=== PATIENT | male | born 1965 | race Caucasian/White ===

== ENCOUNTER 2019-10-25 13:31 | Outpatient (CLI) | payer OTHER, SELFPAY ==
[2019-10-25 13:41] LABS: Basophils Percent Auto 1.1 % (0.0-1.0); Eosinophils Absolute Auto 0.29 K/mm3 (0.02-0.50); Eosinophils Percent Auto 3.1 % (1.0-6.0); Hematocrit 34.9 % (40.0-54.0); Hemoglobin 11.1 g/dL (14.0-18.0); Immature Granulocyte Absolute 0.03 K/mm3 (0.00-0.00); Immature Granulocyte Percent A 0.3 % (0.0-0.0); Lymphocytes Absolute Auto 3.03 K/mm3 (1.10-4.50); Lymphocytes Percent Auto 32.3 % (18.0-42.0); Mean Corpuscular HGB Conc 31.8 g/dL (32.0-36.0); Mean Corpuscular Hemoglobin 27.3 pg (27.0-31.0); Mean Corpuscular Volume 85.7 fL (78.0-102.0); Mean Platelet Volume 8.6 fl (8.7-11.0); Monocytes Absolute Auto 0.77 K/mm3 (0.10-0.90); Monocytes Percent Auto 8.2 % (2.0-11.0); Neutrophils Absolute Auto 5.2 K/mm3 (1.7-7.2); Platelet Count Result 179 K/mm3 (150-420); Red Blood Count 4.07 M/mm3 (4.70-6.10); Red Cell Distribution Width 14.1 % (11.6-14.4); White Blood Count 9.4 K/mm3 (4.8-10.8)
[2019-10-25 13:51] LABS: Hemoglobin A1C 12.7 % (<5.7)
[2019-10-25 14:23] LABS: Alanine Aminotransferase 20 U/L (16-63); Albumin Level 4.1 g/dL (3.4-5.0); Alkaline Phosphatase 95 U/L (46-116); Anion Gap 14.8 mmol/L (7-16); Aspartate Amino Transferase 14 U/L (15-37); Bilirubin,Total 0.3 mg/dL (0.00-1.00); Blood Urea Nitrogen 7 mg/dL (7-18); Carbon Dioxide 29 mmol/L (21-32); Chloride 99 mmol/L (98-108); Estimated Glomerular Filt Rate > 60; Potassium 3.8 mmol/L (3.5-5.1); Sodium 139 mmol/L (136-145); Total Protein 7.2 g/dL (6.4-8.2)
[2019-10-25 14:26] LABS: Glucose 517 mg/dL (70-99); Osmolality Calculated 309 mOsm/kg (285-295)
== END 2019-10-25 13:32 | disposition home or self-care (01) ==
LOC: CHSLAB 13:32
PROVIDERS: PCP Internal Medicine; Visit Provider Internal Medicine
DX: E11.9 Type 2 diabetes mellitus without complications (principal)
CPT/HCPCS: 36415; 80053; 83036; 85025

== ENCOUNTER 2020-02-26 17:13 | Outpatient (CLI) | payer OTHER, SELFPAY ==
[2020-02-26 17:33] LABS: Basophils Percent Auto 1.1 % (0.0-1.0); Eosinophils Absolute Auto 0.17 K/mm3 (0.02-0.50); Eosinophils Percent Auto 1.9 % (1.0-6.0); Hematocrit 42.5 % (40.0-54.0); Hemoglobin 13.9 g/dL (14.0-18.0); Immature Granulocyte Absolute 0.03 K/mm3 (0.00-0.00); Immature Granulocyte Percent A 0.3 % (0.0-0.0); Lymphocytes Absolute Auto 2.99 K/mm3 (1.10-4.50); Lymphocytes Percent Auto 33.3 % (18.0-42.0); Mean Corpuscular HGB Conc 32.7 g/dL (32.0-36.0); Mean Corpuscular Hemoglobin 29.3 pg (27.0-31.0); Mean Corpuscular Volume 89.7 fL (78.0-102.0); Mean Platelet Volume 9.4 fl (8.7-11.0); Monocytes Absolute Auto 0.37 K/mm3 (0.10-0.90); Monocytes Percent Auto 4.1 % (2.0-11.0); Neutrophils Absolute Auto 5.3 K/mm3 (1.7-7.2); Neutrophils Percent Auto 59.3 % (50.0-70.0); Platelet Count Result 230 K/mm3 (150-420); Red Blood Count 4.74 M/mm3 (4.70-6.10); Red Cell Distribution Width 12.8 % (11.6-14.4)
[2020-02-26 18:20] LABS: Alanine Aminotransferase 24 U/L (16-63); Alkaline Phosphatase 166 U/L (46-116); Anion Gap 13.5 mmol/L (7-16); Aspartate Amino Transferase 22 U/L (15-37); Bilirubin,Total 0.6 mg/dL (0.00-1.00); Blood Urea Nitrogen 7 mg/dL (7-18); Calcium 8.9 mg/dL (8.5-10.1); Carbon Dioxide 30 mmol/L (21-32); Chloride 87 mmol/L (98-108); Cholesterol 275 mg/dL (0-200); Estimated Glomerular Filt Rate > 60; HDL Direct 74 mg/dL (40-60); LDL Cholesterol Calculated 148 mg/dL (<130); Potassium 4.5 mmol/L (3.5-5.1); Prostate Specific Antigen 0.7 ng/mL (< OR = 4.0); Sodium 126 mmol/L (136-145); Total Protein 7.3 g/dL (6.4-8.2); Triglycerides 264 mg/dL (0-150)
[2020-02-26 18:30] LABS: Glucose > 800 mg/dL (70-99); Osmolality Calculated 299 mOsm/kg (285-295)
[2020-02-29 09:14] LABS: Amphetamines NEGATIVE ng/mL (<500); Barbiturates NEGATIVE ng/mL (<300); Benzodiazepines NEGATIVE ng/mL (<100); Cocaine Metabolite NEGATIVE ng/mL (<150); Codeine NEGATIVE ng/mL (<50); Hydrocodone NEGATIVE ng/mL (<50); Hydromorphone NEGATIVE ng/mL (<50); Marijuana Metabolite NEGATIVE ng/mL (<20); Methadone Metabolite NEGATIVE ng/mL (<100); Morphine NEGATIVE ng/mL (<50); Norhydrocodone NEGATIVE ng/mL (<50); Noroxycodone 630 ng/mL (<50); Opiates NEGATIVE CONFIRMED ng/mL (<100); Oxidant NEGATIVE mcg/mL (<200); Specific Gravity 1.035 (>=1.003)
== END 2020-02-26 17:14 | disposition home or self-care (01) ==
PROVIDERS: PCP Internal Medicine; Visit Provider Internal Medicine
DX: E11.9 Type 2 diabetes mellitus without complications (principal); Z79.01 Long term (current) use of anticoagulants; G89.29 Other chronic pain; Z12.5 Encounter for screening for malignant neoplasm of prostate
CPT/HCPCS: 36415; 80053; 80061; 80299; 83036; 84153; 84443; 85025; G0103

== ENCOUNTER 2021-08-28 17:40 | Inpatient (IN) | payer OTHER, MEDICAID, SELFPAY ==
--- NOTE | ~2021-08-28 | XR_ITS ---
XR chest 1V portable 09/14/2021 09:12 Indication: Partial left lower lobe collapse. Dyspnea. Procedure: AP portable chest Comparison: Comparison to multiple prior studies sequentially, with oldest reviewed study dated 01/2018. Findings: Heart size normal. Central line tip in the SVC. No pneumothorax. Small pleural effusions. T here is left basilar airspace disease which may represent atelectasis or pneumonia. No acute osseous abnormality. There is moderate gastric distention containing debris. Impression: 1: Left basilar airspace disease may represent atelectasis and/or pneumonia. 2: Small pleural effusions. Reviewed, dictated and finalized at location A. CLERK Impression: 1: Left basilar airspace disease may represent atelectasis and/or pneumonia. 2: Small pleural effusions.
--- NOTE | ~2021-08-28 | XR_ITS ---
EXAMINATION: XR chest 1V portable DATE: 08/28/2021 18:43 INDICATION: Altered mental status, weakness and weight loss TECHNIQUE: frontal view of the chest was obtained. COMPARISON: Chest radiograph dated 06/10/2018 FINDINGS: Hyperexpansion of the lungs with regions of increased lucency and architectural distortion consistent with emphysema. Minimal linear atelectasis/scarring at the lung bases. No focal airspace opacities, pulmonary edema, pleural effusion or pneumothorax. The cardiomediastinal silhouette is normal. IMPRESSION: 1. Emphysema. No acute cardiopulmonary disease. Reviewed, dictated and finalized at location . PAINTER
--- NOTE | ~2021-08-28 | MR_ITS ---
EXAMINATION: MR chest wo/w con, MR abdomen wo/w con DATE: 09/09/2021 10:37 INDICATION: Cardiogenic shock. Excessive weight loss. TECHNIQUE: 1. Magnetic resonance imaging (MRI) of the chest was performed without and with 10 mL Multihance intr avenous contrast. Sequences included axial and coronal T2-weighted SS-FSE, axial T1 frFSE RT, axial d iffusion-weighted SE, axial dual-echo T1-weighted FSPGR, and pre and postcontrast axial T1-weighted L NBA. 2. MRI of the abdomen was performed without and with 10 mL Multihance intravenous contrast utilizing the same contrast bolus. Sequences included coronal T2-weighted SS-FSE, axial and coronal T2-weighted SS-FSE FS, coronal 2D-FIESTA, axial T1 FSPGR FS, axial diffusion-weighted SE, axial dual-echo T1-davide ghted FSPGR, and axial and coronal T1-weighted LAVA. Postcontrast axial T1-weighted LAVA images were obtained in a time course. Postcontrast coronal T1-weighted LAVA images were obtained. COMPARISON: CT chest, abdomen and pelvis dated 08/30/2021 FINDINGS: Chest: Interval increase in size of a small right and moderate left posterior layering pleural effusions. Pa rtial collapse of the left lower lobe and additional severe dependent atelectasis in the right lower lobe. Persistent mild curvilinear discoid atelectasis/scarring at the lingula and right middle lobe. Heart size is normal. No pericardial effusion. Mediastinal edema. Thoracic aorta is normal in caliber with no evident dissection. Some residual pulmonary emboli suggested in the pulmonary arteries of th e right lower lobe however sensitivity and specificity are markedly more limited with MRI than CT No pathologically enlarged thoracic lymphadenopathy. Bone marrow signal is unremarkable. Abdomen: Marked distention of the fluid and debris filled stomach. 8 mm T2 hyperintense nonenhancing cyst in t he left hepatic lobe. The gallbladder, spleen and bilateral adrenal glands are normal. There is irreg ular dilation of the main pancreatic duct and multiple pancreatic ductal side branches consistent wit h sequela of chronic pancreatitis. There is diffuse parenchymal atrophy of the pancreas which appears to enhance relatively uniformly with no evident pancreatic mass is identified. Moderate left and mil d right hydronephrosis also with mild left hydroureter and marked distention of the bladder which kate sures 17.6 x 13.1 x 12.3 cm and suggests bladder outlet obstruction or neurogenic bladder. 2.8 cm non enhancing T2 hyperintense right renal cyst. No bowel obstruction. There is small amount of ascites sc attered throughout the abdomen and pelvis along with diffuse mesenteric, retroperitoneal and body wal l edema. No pathologically enlarged abdominal or pelvic lymphadenopathy. Bone marrow signal is unrema rkable throughout. IMPRESSION: 1. Anasarca with enlarging small right and moderate left pleural effusions, small amount of ascites a nd extensive edema throughout the body wall, mediastinum, mesentery and retroperitoneum. 2. Suggestion of some persistent pulmonary embolism in the right lower lobar pulmonary arteries howev er assessment by MRI is significantly more limited than with CT. 3. Prominent irregular dilation of the main pancreatic duct and multiple pancreatic ductal side branc hes likely sequela of chronic pancreatitis. Assessment for acute interstitial pancreatitis is limited by the background of anasarca. 4. Marked distention of the stomach. Correlate clinically for gastroparesis. 5. Likely bladder outlet obstruction versus neurogenic bladder with prominent distention of the bladd er and mild right and moderate left hydronephrosis. Reviewed, dictated and finalized at location B. RIST IMPRESSION: 1. Anasarca with enlarging small right and moderate left pleural effusions, sma ll a
--- NOTE | ~2021-08-28 | XR_ITS ---
EXAMINATION: XR chest 1V portable INDICATION: Partial left lower lobe collapse TECHNIQUE: Portable AP chest at 1203 hours COMPARISON: 08/31/2021 FINDINGS: A right internal jugular central venous catheter ends with its tip in the distal superior v hollie cava. There are small pleural effusions, left greater than right. Associated airspace opacities a re noted in the lung bases. There is no pneumothorax. The cardiomediastinal silhouette is stable. IMPRESSION: 1. Small pleural effusions, left greater than right. 2. Bibasilar airspace opacities, left greater than right, consistent with atelectasis versus pneumoni a. Reviewed, dictated and finalized at location A. R INSTALLER IMPRESSION: 1. Small pleural effusions, left greater than right. 2. Bibasilar airspace opacities, left greater than right, consistent with atele ctasis versus pneumonia.
--- NOTE | ~2021-08-28 | CT_ITS ---
EXAMINATION: CT brain wo con DATE: 08/28/2021 18:43 INDICATION: Altered mental status TECHNIQUE: Computed tomography (CT) of the head was performed without intravenous contrast. Sagittal and coronal reconstructions were performed. The mA was adjusted according to patient size. Iterative reconstruction technique was employed. The dose-length product was 605.33 mGy-cm. COMPARISON: head CT dated 06/29/2015 FINDINGS: No acute intracranial hemorrhage, acute infarction or abnormal extra axial fluid collection. There is minimal scattered white matter hypoattenuation consistent with chronic small vessel ischemic disease . Symmetric prominence of the sulci and ventricles consistent with mild age-appropriate diffuse cere bral volume loss which has progressed slightly since the prior study. Ventricles are normal and symme tric. No mass/mass effect. The orbits, paranasal sinuses and mastoid air cells are normal. IMPRESSION: 1. No acute intracranial process. 2. Age-related changes including mild diffuse volume loss and minimal scattered white matter hypoatte nuation consistent with chronic small vessel ischemic disease. Reviewed, dictated and finalized at location . ING BALL FINISHER IMPRESSION: 1. No acute intracranial process. 2. Age-related changes including mild diffuse volume loss and minimal scattered white matter hypoattenuation consistent with chronic small vessel ischemic dis ease.
--- NOTE | ~2021-08-28 | XR_ITS ---
XR chest 1V portable DATE: 08/31/2021 02:46 INDICATION: Central line placement TECHNIQUE: Portable AP chest views on 08/31/2021 at 0240 hours including exposures during inspiration and expiration COMPARISON: 08/28/2021 portable AP chest FINDINGS: Right internal jugular central venous catheter tip overlies the superior vena cava. No pneu mothorax is evident. Bilateral hyperinflation and relative flattening the diaphragm, consistent with COPD. Normal heart size. No hilar or mediastinal enlargement. No pulmonary infiltrate or consolidation, ple ural effusion or pulmonary vascular congestion or pneumothorax is detected. Diffuse osteopenia. Old healed fracture of the posterolateral aspect of the right fifth rib. IMPRESSION: Right internal jugular central venous line in superior vena cava Bilateral hyperinflation consistent with COPD Reviewed, dictated and finalized at location A. ER CAMP COUNSELOR
--- NOTE | ~2021-08-28 | CT_ITS ---
EXAMINATION: CT chest abdomen pelvis w con DATE: 08/30/2021 12:02 INDICATION: Large amount of weight loss over 6 months TECHNIQUE: Computed tomography (CT) of the chest, abdomen, and pelvis was performed with 100 mL Omnip aque-350 intravenous contrast. Automated exposure control and iterative reconstruction technique were employed. The dose-length product was 260.78 mGy-cm. COMPARISON: CT abdomen and pelvis dated 08/13/2019 FINDINGS: CHEST CT: Mild to moderate emphysema. Linear bands of atelectasis/scarring in the right middle lobe and lingula . Small right and very small left posterior layering pleural effusions with adjacent dependent compre ssive atelectasis in the bilateral lower lobes. No pneumonia, pulmonary edema. 4 mm nodule along a th in-walled 1.6 cm diameter cavitary lesion in the anterior basilar segment of the left lower lobe. No other suspicious pulmonary nodules identified. Calcified right upper lobe nodule and calcified medias tinal lymph node consistent with old granulomatous disease. Single right-sided pulmonary embolism beg inning just proximal to the takeoff of the right middle pulmonary artery with minimal extension to th e right middle lobar pulmonary artery with the majority of the thrombus extending caudally into the r ight lower lobar and anterior basilar segmental pulmonary artery of the right lower lobe. No other pu lmonary emboli identified. Heart size is normal. No leftward bowing of the ventricular septum to sugg est right heart strain. No pericardial effusion. Thoracic aorta is normal in caliber with no dissecti on. No pathologically enlarged thoracic lymphadenopathy. There is a relative paucity of body wall fat throughout the thorax with extensive body wall and mediastinal edema. Chronic T8 compression fractur e with 20% anterior vertebral body height loss. ABDOMEN/PELVIS CT: There are at least 4 subcentimeter low-attenuation likely hepatic cysts, primarily in the left hepati c lobe. Gallbladder, spleen and bilateral adrenal glands are normal. There are multiple dystrophic ca lcifications along with parenchymal atrophy throughout the pancreas which is new since the prior stud y, likely sequela of chronic pancreatitis. Kidneys enhance symmetrically with no hydronephrosis. 2.5 cm right renal cyst. No abnormal bowel wall thickening or obstruction. Ellison catheter within the inco mpletely distended bladder which demonstrates diffuse wall thickening. Small amount of ascites in the pelvis. As in the chest there is a relative paucity of body wall and intra-abdominal/pelvic fat with extensive soft tissue edema. Bones are unremarkable. IMPRESSION: 1. Pulmonary embolism in the right lower lobar at the origin of the right middle lobar pulmonary gema héctor. Dr. Hassan discussed these findings with Dr. Farris at 6:05 PM. 2. Anasarca including small right and very small left pleural effusions, small amount of ascites in t he pelvis, diffuse body wall edema as well as edema throughout the fat of the mediastinum and retrope ritoneum which is of indeterminate etiology. 3. 4 mm nodule along the periphery of otherwise thin walled cavitary lesion in the left lower lobe at the site of a prior part solid nodule 2 years prior suggesting sequela of prior infection. Recommend 12 month follow-up low-dose noncontrast chest CT. 4. Mild to moderate emphysema. 5. Multiple dystrophic calcifications throughout the pancreas with some parenchymal atrophy which is new since the prior study likely sequela of intervening chronic pancreatitis. Correlate with clinical history. 6. Prominent diffuse bladder wall thickening which could be due to chronic outlet obstruction, cystit is either acute or chronic or malignancy. Reviewed, dictated and finalized at [facility]. LER'S OFFSIDER IMPRESSION: 1.
--- NOTE | 2021-08-28 17:49 | ECG_ITS ---
Measurements Intervals [place] Rate: 75 P: 81 DC: 119 QRS: 97 QRSD: 97 T: 71 QT: 399 QTc: 448 Interpretive Statements SINUS RHYTHM WITH SHORT DC INTERVAL RIGHT AXIS DEVIATION CANNOT RULE OUT SEPTAL INFARCT, AGE INDETERMINATE ST-T WAVE ABNORMALITY IN ANTEROLAT/INF LEADS- CONSIDER ISCHEMIA BASELINE ARTIFACT- I, II, III, AVR, AVL, AVF, V2-V6 ABNORMAL ECG Electronically Signed On 08-28-2021 20:36:41 CONNECTION WORKER by Albert Bansal D.O.
--- NOTE | 2021-08-28 17:52 | ED.GENADULT ---
HPI - General Adult General Chief complaint: Altered Mental Status Stated complaint: AMB Source: patient and EMS Mode of arrival: EMS Limitations: altered mental status History of Present Illness HPI narrative: Shad is a 56M with a PMH of DMI, tobacco abuse, pulmonary embolism, alcoholic pancreatitis and a very large weight loss over the last 6 months that came in by EMS feeling week. He reportedly has been feeling weak for a few days and fell out of bed but was unable to get up so an ambulance was called after 4 hours. He has reportedly lost almost half his weight in the last 6 months. He is very weak and unable to give further history. Related Data Home Medications Medication Instructions Recorded Confirmed insulin lispro protamin-lispro 20 unit SUBCUT BID 08/13/19 08/28/21 [Humalog Mix 75-25(U-100)Insuln] oxycodone-acetaminophen 1 tablet PO TID 08/13/19 08/28/21 rivaroxaban [Xarelto] 20 mg PO DAILY 08/13/19 08/28/21 Allergies Allergy/AdvReac Type Severity Reaction Status Date / Time Penicillins Allergy Rash Verified 02/27/20 12:00 Review of Systems Review of Systems: ROS unobtainable: Yes unobtainable due to medical condition [facility] Past Medical History Medical History Diabetes 1.5, managed as type 2 Pancreatitis, alcoholic, acute Pulmonary embolism Family History Family History Sibling Depression Family history of pancreatic disease Mother Acute myocardial infarction, Onset Age: 60 Social History Social History Smoking packs per day: 1 Smoking cigarettes per day: 20.0 Years smoked: 22 Smoking pack-years: 22.00 Smoking status: Current some day smoker Tobacco type: cigarettes Alcohol intake: former Substance use: current Substance use type: methamphetamine Spiritual care concerns: No Exam Const: General: no acute distress and alert Limitations: altered mental status Other: Oriented to person and knew he was in a hospital. Cachectic appearing. Has soiled himself. HENMT: Other: Normocephalic, atraumatic Eyes: Conjunctivae: conjunctivae normal Pupils: Equal, round and reactive pupils present Chest: Chest palpation & inspection: normal inspection of the chest Resp: Effort & Inspection: labored and tachypneic Auscultation: clear to auscultation bilaterally Cardio: Rate: regular rate Rhythm: regular rhythm Peripheral pulses: Peripheral pulses 2+ throughout and radial pulses present GI: Inspection: non-distended GI Palp: Yes Soft to palpation, No Tenderness to palpation present (GI) and No Guarding due to palpation present (GI) Back/Spine/Pelvis: Back: no CVA tenderness Skin: General skin exam: normal color Rashes: no rashes Neuro: General: moves all extremities, no focal motor deficits and CN's II-XI intact bilaterally Extrem: General: normal to inspection Other: normal capillary refill Psych: Appearance: disheveled Course Course Emergency Course: Continued fluids for soft BP. Ordered labs, CT head and UA. A loera was placed. Upon entry 1500ml were drained. EXAMINATION: XR chest 1V portable DATE: 08/28/2021 18:43 INDICATION: Altered mental status, weakness and weight loss TECHNIQUE: frontal view of the chest was obtained. COMPARISON: Chest radiograph dated 06/10/2018 FINDINGS: Hyperexpansion of the lungs with regions of increased lucency and architectural distortion consistent with emphysema. Minimal linear atelectasis/scarring at the lung bases. No focal airspace opacities, pulmonary edema, pleural effusion or pneumothorax. The cardiomediastinal silhouette is normal. IMPRESSION: 1. Emphysema. No acute cardiopulmonary disease. EXAMINATION: CT brain wo con DATE: 08/28/2021 18:43 INDICATION: Altered mental status TECHNIQUE: Computed tomography (CT) of the head was performed
[2021-08-28 18:08] LABS: Base Excess ABG 13.2 mmol/L (0-2); HCO3 ABG 38.7 mmol/L (23-29); Oxygen Saturation ABG 88.6 % (95-97); Oxyhemoglobin 88.2 % (94-100); PCO2 ABG 53.7 mmHg (35-45); Total Hemoglobin 12.1 g/dL (12.0-18.0); pH ABG 7.48 (7.35-7.45)
[2021-08-28 18:12] LABS: Basophils Absolute Auto 0.03 K/mm3 (0.00-0.10); Basophils Percent Auto 0.2 % (0.0-1.0); Eosinophils Absolute Auto 0.01 K/mm3 (0.02-0.50); Eosinophils Percent Auto 0.1 % (1.0-6.0); Hematocrit 35.7 % (40.0-54.0); Hemoglobin 11.5 g/dL (14.0-18.0); Immature Granulocyte Absolute 0.06 K/mm3 (0.00-0.00); Immature Granulocyte Percent A 0.4 % (0.0-0.0); Lymphocytes Absolute Auto 1.08 K/mm3 (1.10-4.50); Lymphocytes Percent Auto 7.9 % (18.0-42.0); Mean Corpuscular HGB Conc 32.2 g/dL (32.0-36.0); Mean Corpuscular Hemoglobin 29.4 pg (27.0-31.0); Mean Corpuscular Volume 91.3 fL (78.0-102.0); Mean Platelet Volume 10.2 fl (8.7-11.0); Monocytes Absolute Auto 0.49 K/mm3 (0.10-0.90); Monocytes Percent Auto 3.6 % (2.0-11.0); Neutrophils Absolute Auto 11.9 K/mm3 (1.7-7.2); Neutrophils Percent Auto 87.8 % (50.0-70.0); Platelet Count Result 269 K/mm3 (150-420); Red Blood Count 3.91 M/mm3 (4.70-6.10); Red Cell Distribution Width 13.3 % (11.6-14.4); White Blood Count 13.6 K/mm3 (4.8-10.8)
[2021-08-28 18:13] LABS: Add Urine Microscopic? YES; Appearance Urine Clear (Clear); Bilirubin Urine Negative (Negative); Blood Urine 2+ (Negative); Color Urine Light Yellow (Yellow); Glucose Urine UA 3+ (Negative); Ketones Urine Negative (Negative); Leukocyte Esterase Ur Trace (Negative); Nitrate Urine Negative (Negative); Protein Urine Negative (Negative); Specific Grav Ur <= 1.005 (1.010-1.020); Urobilinogen Urine 0.2 mg/dL (0.2-1.0)
[2021-08-28] MEDS: SODIUM CHLORIDE 0.9% IV 1,000 ML 1000 ML (18:16)
[2021-08-28 18:19] LABS: Bacteria Urine Trace /hpf; RBC Urine 21-50 /hpf (0-2); Site Drawn LEFT RADIAL; Squamous Epithelial Cell Urine None seen /hpf (Few)
[2021-08-28 18:20] LABS: Device ROOM AIR; Modified Allen's Test Pass
[2021-08-28 18:21] LABS: Amphetamine Screen Urine Positive (Negative); Barbiturate Screen Urine Negative (Negative); Benzodiazepines Screen Urine Negative (Negative); Cannabinoid Screen Urine Negative (Negative); Cocaine Screen Urine Negative (Negative); Methadone Screen Urine Negative (Negative); Opiate Screen Urine Negative (Negative); Phencyclidine Screen Urine Negative (Negative)
[2021-08-28 18:24] LABS: INR 1.2; Prothrombin Time 12.3 Seconds (9.50-12.10)
[2021-08-28 18:27] VITALS: BP 139/59; PULSE 63; PULSE 81; RESP 16; TEMP 37.2; O2SAT 100
[2021-08-28 18:34] LABS: Glucose Point of Care > 450 mg/dl (65-105)
[2021-08-28 18:40] LABS: Alanine Aminotransferase 17 U/L (16-63); Albumin Level 2.9 g/dL (3.4-5.0); Alkaline Phosphatase 250 U/L (46-116); Anion Gap 13 mmol/L (8-16); Aspartate Amino Transferase 17 U/L (15-37); Bilirubin,Total 1.1 mg/dL (0.00-1.00); Blood Urea Nitrogen 52 mg/dL (7-18); Calcium 9.1 mg/dL (8.5-10.1); Carbon Dioxide 37 mmol/L (21-32); Chloride 88 mmol/L (98-108); Creatine Kinase 113 U/L (39-308); Estimated Glomerular Filt Rate 21; Lipase 53 U/L (73-393); Sodium 138 mmol/L (136-145); Thyroid Stimulating Hormone 1.71 uIU/mL (0.36-3.74); Total Protein 6.5 g/dL (6.4-8.2); Troponin I 16.9 ng/L (0.00-60.4)
[2021-08-28 18:47] LABS: Glucose > 500 mg/dL (70-99); Osmolality Calculated 322 mOsm/kg (285-295); Potassium 2.4 mmol/L (3.5-5.1)
[2021-08-28 18:50] LABS: Ethanol < 3 mg/dL (0-6)
[2021-08-28 19:00] LABS: Magnesium 3.2 mg/dL (1.8-2.4); Phosphorus 3.7 mg/dL (2.6-4.7)
[2021-08-28] MEDS: SODIUM CHLORIDE 0.9% IV 1,000 ML 999 ML IV CONT (19:15)
--- NOTE | 2021-08-28 19:15 | PC.NURSE ---
REPORT TO ASHLEY BA
[2021-08-28] MEDS: INSULIN HUMAN REGULAR (*BKC) 100 UNITS in SODIUM CHLORIDE 0.9% IV 99 ML IV CONT (19:16)
[2021-08-28] MEDS: KCL 20 MEQ/SW 100 ML 100 ML 50 MEQ IVPB ×2 (19:16→23:53)
[2021-08-28 19:31] LABS: SARS-CoV-2 Ag Negative (Negative)
--- NOTE | 2021-08-28 19:37 | PC.NURSE ---
Report received, care resumed, pt repostioned in bed, nonverbal but will answer to yes and no questions. Pt is confused, but alert. Bed assigned for admit to Rm 206, awaiting call back to give report. IVF infusing as per order, potassium infusing c NS into Rt. AC site and insulin gtt infusing per order into Lt AC. Pts noted to have BP 86/60, ERP aware. Pts SPo2 noted at 88%, pt placed on NC O2 @ 3L.
[2021-08-28 20:00] VITALS: PULSE 82
[2021-08-28 20:13] VITALS: BP 102/68; PULSE 76; RESP 18; TEMP 36.1; O2SAT 99
[2021-08-28] MEDS: SODIUM CHLORIDE 0.9% IV 1,000 ML 250 ML IV CONT (20:34)
[2021-08-28 21:00] VITALS: O2SAT 100
[2021-08-28 21:03] VITALS: BMI 13.6
[2021-08-28 21:03] LABS: Glucose Point of Care > 450 mg/dl (65-105)
[2021-08-28 21:40] LABS: Glucose Point of Care > 450 mg/dl (65-105)
[2021-08-28 22:00] VITALS: BP 85/56; PULSE 80; RESP 16; TEMP 36.8; O2SAT 100
--- NOTE | 2021-08-28 23:00 | ADMGEN ---
This patient, Shad Rodriguez, was admitted to 2nd Floor Room 206-1. Patient/family oriented to hospital policies and general routines including ID bracelet, bed and alarms, visiting hours, pain management, procedures, bathroom and other care routines, personal items, smoking policy, room service/diet, and visiting hours. Information on how to activate the Rapid Response Team has been discussed. Patient/Family are encouraged to report perceived risks to care and to ask questions if they do not understand what they are told or what they should do.
--- NOTE | 2021-08-28 23:05 | PC.NURSE ---
Lab called to report a critical blood glucose of 411.
[2021-08-28 23:07] LABS: Glucose Point of Care 420 mg/dl (65-105)
[2021-08-28 23:22] LABS: Anion Gap 11 mmol/L (8-16); Blood Urea Nitrogen 44 mg/dL (7-18); Calcium 9.1 mg/dL (8.5-10.1); Carbon Dioxide 37 mmol/L (21-32); Chloride 102 mmol/L (98-108); Estimated CRCL calculation 17 ml/min; Estimated Glomerular Filt Rate 27; Osmolality Calculated 338 mOsm/kg (285-295); Potassium 2.6 mmol/L (3.5-5.1); Sodium 150 mmol/L (136-145)
[2021-08-28 23:23] LABS: Glucose 411 mg/dL (70-99)
--- NOTE | 2021-08-28 23:35 | PC.NURSE ---
Dr. Reddy called with new orders of 1000 ml 0.45% NS at 200 ml/hr. 0.9% NS discontinued at this time.
[2021-08-28] MEDS: SODIUM CHLORIDE 0.45% 1,000 ML 200 ML IV CONT (23:55)
[2021-08-29] VITALS (37 sets, daily range): BP systolic 60–153; BP diastolic 48–97; PULSE 47–70; RESP 12–18; TEMP 35.9–37.2; O2SAT 100
[2021-08-29 00:03] LABS: Lactic Acid Reflex 6.9 mmol/L (0.4-2.0)
[2021-08-29 00:05] LABS: Glucose Point of Care > 450 mg/dl (65-105)
--- NOTE | 2021-08-29 00:25 | PC.NURSE ---
Contacted Dr. Reddy to report pt's blood pressure of 60/48.
--- NOTE | 2021-08-29 00:51 | PC.NURSE ---
Dr. Reddy here to see patient. NS increased to 900 ml/hr.
--- NOTE | 2021-08-29 01:00 | PC.NURSE ---
Dr. Reddy called and given pt's blood pressureof 73/53 and pulse of 64. No new orders at this time.
[2021-08-29 01:07] LABS: Glucose Point of Care 253 mg/dl (65-105)
--- NOTE | 2021-08-29 01:27 | PC.NURSE ---
Dr. Reddy here to see pt; new orders received and noted.
[2021-08-29] MEDS: DEXTROSE 5%/0.45% SOD CHL 1,000 ML 400 ML IV CONT (01:41)
[2021-08-29 01:50] LABS: Glucose Point of Care 171 mg/dl (65-105)
[2021-08-29 01:55] LABS: Basophils Absolute Auto 0.03 K/mm3 (0.00-0.10); Basophils Percent Auto 0.3 % (0.0-1.0); Eosinophils Absolute Auto 0.02 K/mm3 (0.02-0.50); Eosinophils Percent Auto 0.2 % (1.0-6.0); Hematocrit 28.3 % (40.0-54.0); Hemoglobin 9.6 g/dL (14.0-18.0); Immature Granulocyte Absolute 0.03 K/mm3 (0.00-0.00); Immature Granulocyte Percent A 0.3 % (0.0-0.0); Lymphocytes Absolute Auto 1.63 K/mm3 (1.10-4.50); Lymphocytes Percent Auto 17.1 % (18.0-42.0); Mean Corpuscular HGB Conc 33.9 g/dL (32.0-36.0); Mean Corpuscular Hemoglobin 28.8 pg (27.0-31.0); Mean Platelet Volume 9.7 fl (8.7-11.0); Monocytes Absolute Auto 0.37 K/mm3 (0.10-0.90); Monocytes Percent Auto 3.9 % (2.0-11.0); Neutrophils Absolute Auto 7.5 K/mm3 (1.7-7.2); Neutrophils Percent Auto 78.2 % (50.0-70.0); Platelet Count Result 181 K/mm3 (150-420); Red Blood Count 3.33 M/mm3 (4.70-6.10); Red Cell Distribution Width 13.2 % (11.6-14.4); White Blood Count 9.5 K/mm3 (4.8-10.8)
[2021-08-29 02:14] LABS: Anion Gap 9 mmol/L (8-16); Blood Urea Nitrogen 39 mg/dL (7-18); Calcium 8.7 mg/dL (8.5-10.1); Carbon Dioxide 38 mmol/L (21-32); Chloride 106 mmol/L (98-108); Estimated CRCL calculation 21 ml/min; Estimated Glomerular Filt Rate 33; Glucose 136 mg/dL (70-99); Osmolality Calculated 327 mOsm/kg (285-295); Sodium 153 mmol/L (136-145); Troponin I 16.4 ng/L (0.00-60.4)
[2021-08-29 02:15] LABS: Lactic Acid 6.8 mmol/L (0.4-2.0)
--- NOTE | 2021-08-29 02:16 | PC.NURSE ---
Lab called to report a critical low potassium of 2.0.
--- NOTE | 2021-08-29 02:25 | PC.NURSE ---
New order for 20 meq KCL at 50 ml/hr ordered.
[2021-08-29 02:41] LABS: HIV 1 P24 AG Negative (Negative); HIV 1/2 AB Negative (Negative)
[2021-08-29] MEDS: KETAMINE HCL (*CRX) 500 MG/10 ML VIAL 40 MG IV PUSH (03:26)
[2021-08-29 03:29] LABS: Glucose Point of Care 115 mg/dl (65-105)
--- NOTE | 2021-08-29 03:35 | PC.NURSE ---
New order for 20 meq of KCL to infuse at 50 ml/hr.
--- NOTE | 2021-08-29 03:59 | PC.NURSE ---
Addendum entered by Wilson Loza RN 08/29/21 04:06: Dr. Reddy prepped the area of procedure and followed sterile technique for procedure. At 2:42 08/29/21 pt's bp was 83/61 with a pulse of 62 taken on the left arm in the supine position as the doctor administered an anesthetic in the left inner thigh. 1st attempt to insert catheter was successful until the pt had moved and placement was lost occurring at 02:50. BP was 87/61 with a pulse of 96 at 02:55. 2nd attempt took place at 02:56 with no success. Procedure discontinued. A EZ-IO placement became the next step with the pt giving verbal consent to Leilani Diaz RN. and Dr. Reddy DO.. Ketamine 40mg was then administered by Edd RAMIREZ from ER into the pt's left AC then flushed with 12 mL of NS at 03:26; pt's bp was 83/62 at this time as well. EZ-IO blue size 25 gauge was placed in the R leg just below the inner side of the knee at 03:31; blood return present and then site flushed with 12 ml of NS. A stabilizer was then placed at 03:33. 0.45% continued flowing in the L AC at 500 ml/hour at 03:39. Norepinephrine 5mcg/hr in the IO at 03:35. D5/NS0.45% began running in R AC at 400ml/hr at 03:38. BP at 03:43 was 95/65 and 82/71 at 03:56. Norepinephrine was then increased to 10mcg/hr and D5/NS0.45% increased to 500ml/hr at 04:15. ECG strips were placed in pt's physical chart. Original Note: Dr. Reddy prepped the area of procedure and followed sterile technique for procedure. At 2:42 08/29/21 pt's bp was 83/61 with a pulse of 62 taken on the left arm in the supine position as the doctor administered an anesthetic in the left inner thigh. 1st attempt to insert catheter was successful until the pt had moved and placement was lost occurring at 02:50. BP was 87/61 with a pulse of 96 at 02:55. 2nd attempt took place at 02:56 with no success. Procedure discontinued. A EZ-IO placement became the next step with the pt giving verbal consent to Leilani Diaz RN. and
--- NOTE | 2021-08-29 04:15 | PC.NURSE ---
Norepinephrine 10 mcg infusing and D5/0.45 NS infusing at 500 ml/hr
[2021-08-29] MEDS: SODIUM CHLORIDE 0.45% 1,000 ML 500 ML IV CONT ×2 (04:25→04:52)
[2021-08-29] MEDS: NOREPINEPHRINE 8 MG/D5W 250 ML 8 MG/250 ML BAG 18.75 MG IV CONT (04:25)
[2021-08-29] MEDS: DEXTROSE 5%/0.45% SOD CHL 1,000 ML 500 ML IV CONT (04:26)
[2021-08-29 04:43] LABS: Glucose Point of Care 98 mg/dl (65-105)
[2021-08-29] MEDS: HYDROCORTISONE SODIUM SUCCINATE 100 MG/2 ML VIAL 80 MG IV PUSH (04:49)
[2021-08-29 05:16] LABS: Glucose Point of Care 120 mg/dl (65-105)
[2021-08-29 05:28] LABS: Anion Gap 9 mmol/L (8-16); Blood Urea Nitrogen 33 mg/dL (7-18); Calcium 8.2 mg/dL (8.5-10.1); Carbon Dioxide 35 mmol/L (21-32); Chloride 105 mmol/L (98-108); Estimated CRCL calculation 26 ml/min; Estimated Glomerular Filt Rate 44; Glucose 67 mg/dL (70-99); Osmolality Calculated 313 mOsm/kg (285-295); Sodium 149 mmol/L (136-145)
--- NOTE | 2021-08-29 05:30 | PC.NURSE ---
Dr. Reddy requested that pt's blood sugar be checked in 30 minutes.
[2021-08-29 05:32] LABS: Potassium 2.2 mmol/L (3.5-5.1)
[2021-08-29] MEDS: KCL 20 MEQ/SW 100 ML 100 ML 50 MEQ IVPB ×3 (05:46→18:30)
[2021-08-29 06:00] LABS: Glucose Point of Care 130 mg/dl (65-105)
--- NOTE | 2021-08-29 06:00 | PC.NURSE ---
Pt bp readings. 114/77 at 0427; 119/87 at 0447; 115/90 at 0455; 118/84 at 0510; 120/87 at 0528; 117/90 at 0547. All reading done while pt is in supine position with the Left arm.
[2021-08-29] MEDS: CEFEPIME 0.5 GM in DEXTROSE 5% IN WATER 50 ML IVPB (06:09)
--- NOTE | 2021-08-29 06:20 | PC.NURSE ---
Critical lab values reported to Dr. Reddy; New orders received and noted.
--- NOTE | 2021-08-29 06:28 | PC.NURSE ---
BP 119/77 taken on pt's left arm in right lateral position
[2021-08-29 06:46] LABS: Glucose Point of Care 113 mg/dl (65-105)
[2021-08-29 07:07] LABS: Glucose Point of Care 182 mg/dl (65-105)
[2021-08-29 08:08] LABS: Glucose Point of Care 152 mg/dl (65-105)
[2021-08-29 09:21] LABS: Glucose Point of Care 162 mg/dl (65-105)
[2021-08-29 09:48] LABS: Anion Gap 9 mmol/L (8-16); Blood Urea Nitrogen 29 mg/dL (7-18); Calcium 8.4 mg/dL (8.5-10.1); Carbon Dioxide 32 mmol/L (21-32); Chloride 102 mmol/L (98-108); Estimated CRCL calculation 30 ml/min; Estimated Glomerular Filt Rate 52; Glucose 127 mg/dL (70-99); Osmolality Calculated 303 mOsm/kg (285-295); Potassium 2.7 mmol/L (3.5-5.1); Sodium 143 mmol/L (136-145); Troponin I 17.4 ng/L (0.00-60.4)
[2021-08-29] MEDS: SODIUM CHLORIDE 0.45% 1,000 ML 100 ML IV CONT (10:00)
[2021-08-29 10:14] LABS: Glucose Point of Care 164 mg/dl (65-105)
[2021-08-29 11:07] LABS: Glucose Point of Care 165 mg/dl (65-105)
[2021-08-29] MEDS: ENOXAPARIN 40 MG/0.4 ML SYRINGE SUB-Q (12:51)
[2021-08-29 12:56] LABS: Glucose Point of Care 156 mg/dl (65-105)
--- NOTE | 2021-08-29 14:14 | PM.IMHP ---
H&P: HPI History of Present Illness Date/Time: 08/29/21 14:14 Shad Rodriguez is a 56 year old male who is admitted for Cardiogenic Shock, Hyperosmolar Hyperglycemia State, Lactic Acidosis, Hypokalemia, GERI, DM. Pt has a PMHx of DM, Tobacco use, PE, EtOH Pancreatitis, large weight loss over past 6 months. When asked about his weight Pt stated yes to the following possibilities: decreased funds to get food, decreased appetite, illicit drug abuse. Pt is not aware of any Cancer diagnosis. Pt states he has been feeling more weak and loss of weight. Pt lives at home with his fimiguel angel. Chief Complaint: Altered mental Status Review of Systems Constitutional: Constitutional: Reports no additional constitutional complaints, Denies body ache(s), Denies chills, Denies fever(s), Reports poor appetite, Reports weakness and Reports weight loss (States combination of decreased appetite, money, illicit drug use) Eyes: Eyes: Reports no additional eye complaints ENT: Reports system reviewed and no additional complaints, except as documented, Reports Normal hearing present, Denies dental pain, Denies dizziness, Reports dry mouth and Denies headache(s) Cardiovascular: Cardiovascular: Reports no additional cardiovascular complaints, Denies chest pain and Denies lightheadedness Respiratory: Respiratory: Reports no additional respiratory complaints, Denies chest congestion, Denies cough and Denies dyspnea Gastrointestinal: Gastrointestinal: Reports no additional gastrointestinal complaints, Denies abdominal pain, Denies nausea and Denies vomiting Comments: decreased appetite and weight loss over past 6 months Genitourinary: Genitourinary: Reports no additional male genitourinary complaints Musculoskeletal: Musculoskeletal: Reports no additional musculoskeletal complaints and Reports muscle weakness Neurologic: Reports system reviewed and no additional complaints, except as documented, Reports Normal hearing present, Denies dizziness, Denies headache(s), Denies tingling and Reports weakness Psychiatric: Psychiatric: Reports no additional psychiatric complaints PMF Past Medical History Medical History Diabetes 1.5, managed as type 2 Pancreatitis, alcoholic, acute Pulmonary embolism Family History Family History Sibling Depression Family history of pancreatic disease Mother Acute myocardial infarction, Onset Age: 60 Social History Social History Smoking packs per day: 1 Smoking cigarettes per day: 20.0 Years smoked: 22 Smoking pack-years: 22.00 Smoking status: Current some day smoker Tobacco type: cigarettes Alcohol intake: former Substance use: current Substance use type: methamphetamine Spiritual care concerns: No Meds Home Medications and Allergies Home Medications Medication Instructions Recorded Confirmed Type rivaroxaban 20 mg tablet 20 mg PO DAILY #30 tablet 07/31/19 08/28/21 Rx insulin lispro protamin-lispro 20 unit SUBCUT BID 08/13/19 08/28/21 History [Humalog Mix 75-25(U-100)Insuln] oxycodone-acetaminophen 1 tablet PO TID 08/13/19 08/28/21 History rivaroxaban [Xarelto] 20 mg PO DAILY 08/13/19 08/28/21 History Allergies Allergy/AdvReac Type Severity Reaction Status Date / Time Penicillins Allergy Rash Verified 02/27/20 12:00 Vital Signs Vital Signs - 24 hr 08/28/21 18:27 08/28/21 20:00 08/28/21 20:13 Temperature 98.9 F 97 F L Pulse Rate 81 82 76 Respiratory Rate 16 18 Blood Pressure 139/59 L 102/68 Pulse Oximetry 100 99 08/28/21 21:00 08/28/21 22:00 08/29/21 00:00 Temperature 98.3 F 98.1 F Pulse Rate 80 70 Respiratory Rate 16 14 Blood Pressure 85/56 L 60/48 L Pulse Oximetry 100 100 100 08/29/21 04:00 08/29/21 05:41 08/29/21 06:14 Temperature 96.6 F L 97.4 F L Pulse Rate 47 L 56 L Resp
[2021-08-29 16:41] LABS: Anion Gap 8 mmol/L (8-16); Blood Urea Nitrogen 28 mg/dL (7-18); Carbon Dioxide 33 mmol/L (21-32); Chloride 101 mmol/L (98-108); Estimated CRCL calculation 41 ml/min; Estimated Glomerular Filt Rate > 60; Glucose 213 mg/dL (70-99); Osmolality Calculated 305 mOsm/kg (285-295); Potassium 2.6 mmol/L (3.5-5.1); Sodium 142 mmol/L (136-145)
[2021-08-29 17:11] LABS: Lactic Acid Reflex 0.9 mmol/L (0.4-2.0)
[2021-08-29 18:42] LABS: Glucose Point of Care 174 mg/dl (65-105)
[2021-08-29] MEDS: NOREPINEPHRINE 8 MG/D5W 250 ML 8 MG/250 ML BAG 9.38 MG IV CONT (21:37)
--- NOTE | 2021-08-29 23:15 | PC.NURSE ---
Completed blood glucose monitoring with results of 197. Patient's loera was also emptied, with 450 mL of yellow, clear urine. Continuing to chart blood pressure every 30 minutes.
[2021-08-29 23:21] LABS: Glucose Point of Care 197 mg/dl (65-105)
[2021-08-30] VITALS (39 sets, daily range): BP systolic 70–138; BP diastolic 39–89; PULSE 53–77; RESP 14–118; TEMP 36.2–37.2; O2SAT 95–100
--- NOTE | 2021-08-30 02:10 | PC.NURSE ---
Dr. Ashton called and asked about pt's blood pressure; Orders were to turn levophed down to 3 mg at this time and to turn levophed back up if systolic pressure drops below 90.
[2021-08-30] MEDS: SODIUM CHLORIDE 0.45% 1,000 ML 100 ML IV CONT ×2 (02:27→16:40)
--- NOTE | 2021-08-30 02:32 | PC.NURSE ---
Patient's blood pressure was 93/[address] Ashton wanted levophed to be titrated down from 5 mcg/min to 3 mcg/min. If the patient's systolic blood pressure dropped below 90, the levophed was to be returned to 5 mcg/min. At 0230, the patient's blood pressure was 83/63, so the levophed was titrated back up to 5 mcg/min.
--- NOTE | 2021-08-30 03:00 | PC.NURSE ---
Talked to Dr. Ashton about pt requesting gelatin and broth to eat. No new or changes in orders at this time.
[2021-08-30 03:13] LABS: Glucose Point of Care 264 mg/dl (65-105)
--- NOTE | 2021-08-30 03:17 | PC.NURSE ---
Patient's blood sugar increased from 197 at 2300 on 08/29/21 to 264 at 0300 on 08/30/21.
[2021-08-30] MEDS: MORPHINE SULFATE (*CRX) 2 MG/ML INJ IV PUSH (03:42)
[2021-08-30 05:24] LABS: Basophils Absolute Auto 0.03 K/mm3 (0.00-0.10); Basophils Percent Auto 0.3 % (0.0-1.0); Eosinophils Absolute Auto 0.07 K/mm3 (0.02-0.50); Eosinophils Percent Auto 0.6 % (1.0-6.0); Hemoglobin 10.9 g/dL (14.0-18.0); Immature Granulocyte Absolute 0.05 K/mm3 (0.00-0.00); Immature Granulocyte Percent A 0.4 % (0.0-0.0); Lymphocytes Absolute Auto 2.03 K/mm3 (1.10-4.50); Mean Corpuscular HGB Conc 31.1 g/dL (32.0-36.0); Mean Corpuscular Hemoglobin 29.5 pg (27.0-31.0); Mean Corpuscular Volume 94.9 fL (78.0-102.0); Monocytes Absolute Auto 0.42 K/mm3 (0.10-0.90); Monocytes Percent Auto 3.7 % (2.0-11.0); Neutrophils Absolute Auto 8.7 K/mm3 (1.7-7.2); Platelet Count Result 121 K/mm3 (150-420); Red Blood Count 3.69 M/mm3 (4.70-6.10); Red Cell Distribution Width 13.2 % (11.6-14.4); White Blood Count 11.3 K/mm3 (4.8-10.8)
--- NOTE | 2021-08-30 05:25 | PC.NURSE ---
A marketing representative from [facility] call back center called to get an update on patient's status and condition. Report given and the marketing representative said that no beds were available at this time.
[2021-08-30 05:44] LABS: Lactic Acid Reflex 2.1 mmol/L (0.4-2.0)
[2021-08-30 05:51] LABS: Alanine Aminotransferase 16 U/L (16-63); Albumin Level 2.2 g/dL (3.4-5.0); Alkaline Phosphatase 370 U/L (46-116); Anion Gap 9 mmol/L (8-16); Aspartate Amino Transferase 29 U/L (15-37); Bilirubin,Total 0.8 mg/dL (0.00-1.00); Blood Urea Nitrogen 23 mg/dL (7-18); Calcium 8.1 mg/dL (8.5-10.1); Carbon Dioxide 30 mmol/L (21-32); Chloride 101 mmol/L (98-108); Estimated CRCL calculation 46 ml/min; Estimated Glomerular Filt Rate > 60; Glucose 203 mg/dL (70-99); Magnesium 1.6 mg/dL (1.8-2.4); Osmolality Calculated 299 mOsm/kg (285-295); Sodium 140 mmol/L (136-145); Total Protein 5.1 g/dL (6.4-8.2)
--- NOTE | 2021-08-30 06:41 | PM.IMPN ---
Progress Note: A&P Assessment and Plan (1) Cardiogenic shock: Code(s): R57.0 - Cardiogenic shock <Alen ShookALEKSANDRA Mcgee - Last Filed: 08/30/21 10:46> Status: Acute <Alen Russell ALEKSANDRA Barney - Last Filed: 08/30/21 10:46> Assessment and Plan: Pt was hypotensive with systolic of 60s and 80s, cool skin to touch, cutaneous pallor, altered level of consciousness requiring multiple IVF boluses followed by Levophed at 10mcg/min which has slowly been titrated down but not off at this time, last BP 119/83 (95) HR 66, 2L NC, Troponin were 16.9, 16.4, 17.4, Pt has no complaint of CP but does complain of middle back pain between shoulders. Pt is on wait list at [facility] in [place], [place] 08/30/2021 Levophed being weaned off currently 3 mcg/min, extremities still cool to touch, mottling improved since yesterday <ALEKSANDRA Petty - Last Filed: 08/30/21 10:46> (2) Hyperosmolar hyperglycemic state (HHS): Code(s): E11.00 - Type 2 diabetes mellitus with hyperosmolarity without nonketotic hyperglycemic-hyperosmolar coma (NKHHC); E11.65 - Type 2 diabetes mellitus with hyperglycemia <ALEKSANDRA Petty - Last Filed: 08/30/21 10:46> Status: Acute <Alen ShookALEKSANDRA Mcgee - Last Filed: 08/30/21 10:46> Assessment and Plan: Pt had IV Insulin with D5 1/2NS which has corrected his glucose levels which were as high as > 500 mg/dL, now around 150-160s and insulin drip is off with 1/2 NS at 100 ml/h, Na has been corrected with last being 143 originally 150, Osmolality high was 338 and currently 303, Pt now more alert and responding more than Yes No. Will recheck BMP at 1500 hours. 08/30/2021 Osmolality 299 with glucose 150s-260, Pt not eating at this time, continue to monitor and will restart DM medications when eating <ALEKSANDRA Petty - Last Filed: 08/30/21 10:46> (3) Acidosis, lactic: Code(s): E87.2 - Acidosis <Alen Barney REDUCTION FURNACE OPERATOR-C - Last Filed: 08/30/21 10:46> Status: Acute <Alen Barney REDUCTION FURNACE OPERATOR-C - Last Filed: 08/30/21 10:46> Assessment and Plan: High of 6.8, WBC 13.6, only site of infection is coccyx and hip area with stage 1 decub at coccyx about 4cm diameter and abrasions/skin tear at both hips about the size of a quarter, once renal function has improved and Levophed is weaned off will get CT chest/abd/pelvis w/ contrast, Ab coverage at this time is Vancomycin and Cefepime both renal dosed, Blood Cx Pending 08/30/2021 1.4, continue with Ab <Alen Barney REDUCTION FURNACE OPERATOR-C - Last Filed: 08/30/21 10:46> (4) Hypokalemia: Code(s): E87.6 - Hypokalemia <Alen Barney, REDUCTION FURNACE OPERATOR-C - Last Filed: 08/30/21 10:46> Status: Acute <Alen Barney REDUCTION FURNACE OPERATOR-C - Last Filed: 08/30/21 10:46> Assessment and Plan: K low of 2 and has received total of 80 mEq IV K riders with last level 2.7 after 3rd K rider, will monitor with next lab at 1500 hours or so. <Alen Barney REDUCTION FURNACE OPERATOR-C - Last Filed: 08/30/21 10:46> (5) GERI (acute kidney injury): Code(s): N17.9 - Acute kidney failure, unspecified <Alen Barney, REDUCTION FURNACE OPERATOR-C - Last Filed: 08/30/21 10:46> Status: Acute <Alen Barney REDUCTION FURNACE OPERATOR-C - Last Filed: 08/30/21 10:46> Assessment and Plan: Currently improved BUN 29, Cr 1.42, eCrCl 30.4, eGFR 52, Pt still on Levophed at this time 5 mcg/min. current fluid balance + 3790 ml <Alen Barney REDUCTION FURNACE OPERATOR-C - Last Filed: 08/30/21 10:46> (6) Diabetes 1.5, managed as type 2: Code(s): E13.9 - Other specified diabetes mellitus without complications <ALEKSANDRA Petty - Last Filed: 08/30/21 10:46> Status: Acute <ALEKSANDRA Petty - Last Filed: 08/30/21 10:46> Assessment and Plan: Glucose checks currently Q4H, IV Insulin drip DC'ed, glucose levels around 150-160s, alert enough to trial sips and chips, will adjust medications as needed. <ALEKSANDRA Petty - Last Filed: 08/30/21 10:46> (7) De
[2021-08-30 08:22] LABS: Reflex Lactic Acid Yes or No Add Lactic
[2021-08-30] MEDS: KCL 20 MEQ/SW 100 ML 100 ML 50 MEQ IVPB (08:31)
[2021-08-30 09:03] LABS: Lactic Acid 1.4 mmol/L (0.4-2.0)
[2021-08-30] MEDS: ENOXAPARIN 40 MG/0.4 ML SYRINGE SUB-Q (09:40)
[2021-08-30 14:07] LABS: Anion Gap 6 mmol/L (8-16); Blood Urea Nitrogen 22 mg/dL (7-18); Calcium 8.2 mg/dL (8.5-10.1); Carbon Dioxide 32 mmol/L (21-32); Chloride 97 mmol/L (98-108); Estimated CRCL calculation 43 ml/min; Estimated Glomerular Filt Rate > 60; Glucose 286 mg/dL (70-99); Osmolality Calculated 293 mOsm/kg (285-295); Potassium 3.2 mmol/L (3.5-5.1); Sodium 135 mmol/L (136-145)
--- NOTE | 2021-08-30 14:55 | PC.NURSE ---
[facility] center called to check on patint. Patient continues on waitlist. No bed available at this time.
[2021-08-30] MEDS: MAGNESIUM SULF 2 GM/WATER 50ML 2 GM/50 ML BAG IVPB (16:39)
[2021-08-30 17:24] LABS: Glucose Point of Care 309 mg/dl (65-105)
--- NOTE | 2021-08-30 20:12 | PC.NURSE ---
MD notified that patient's current blood pressure is 109/69 and MAP 81 while on Phenlephrine HCL drip running at 40mcg/min. MD ordered to turn drip rate down to 20mcg/min. [facility] called to figure new pump rate.
[2021-08-30] MEDS: APIXABAN 2.5 MG TABLET 5 MG PO (20:57)
[2021-08-30 21:01] LABS: Glucose Point of Care 445 mg/dl (65-105)
[2021-08-31] VITALS (25 sets, daily range): BP systolic 79–125; BP diastolic 52–97; PULSE 66–86; RESP 16–20; TEMP 36.2–36.7; O2SAT 16–100
--- NOTE | 2021-08-31 02:36 | PM.OP ---
Procedure Note - Brief Procedure Note - Brief Date of procedure: 08/31/21 Pre-op diagnosis: Hyperosmolar hyperglyc/ acidosis/ lactic/ GERI 56-year-old male with diabetes mellitus, DVT, chronic pancreatitis, DVT presented with hyperosmolar nonketotic coma. The patient was noted to be hypotensive secondary to possible sepsis, pulmonary embolism or hypovolemia. And was getting peripheral Levophed which was discontinued. The patient was subsequently switched to IV phenylephrine drip. The patient continued to be hypotensive following which a right IJ central line was a planned. Procedure performed: Right internal jugular central line placement Description of procedure: Right IJ site was cleaned with ChloraPrep. Hand washing, sterile drapes, sterile gowns we used before the procedure. 4 mL of 1% lidocaine was infiltrated locally. Right internal jugular vein was accessed with 18 gauge needle. Bladder was passed through the needle. Using Seldinger technique triple-lumen catheter was placed in place. Good blood draw from all ports. No complications. Chest x-ray revealed correct placement of central line. No pneumothorax. Anesthesia: local Surgeon: Wilson Farris MD Physician Industrial: mL of lidocaine without epinephrine 1% was infiltrated locally. Estimated blood loss (mL): 0 Complications: No immediate complications
--- NOTE | 2021-08-31 02:41 | PC.NURSE ---
Order for central line placement received. Patient informed of procedure and consent obtained. Doctor completed started procedure at 0210 and0 completed at 240. Patient tolerated procedure well. CXR ordered for confirmation of placement
[2021-08-31] MEDS: SODIUM CHLORIDE 0.45% 1,000 ML 100 ML IV CONT ×2 (03:10→13:30)
--- NOTE | 2021-08-31 04:26 | PC.NURSE ---
Notified by [facility] that patient continues to be on waiting list
[2021-08-31 06:33] LABS: Glucose Point of Care 334 mg/dl (65-105)
[2021-08-31 06:40] LABS: Hematocrit 31.8 % (40.0-54.0); Hemoglobin 10.4 g/dL (14.0-18.0); Mean Corpuscular HGB Conc 32.7 g/dL (32.0-36.0); Mean Corpuscular Volume 88.6 fL (78.0-102.0); Mean Platelet Volume 9.3 fl (8.7-11.0); Platelet Count Result 186 K/mm3 (150-420); Red Blood Count 3.59 M/mm3 (4.70-6.10); Red Cell Distribution Width 13.4 % (11.6-14.4); White Blood Count 9.6 K/mm3 (4.8-10.8)
[2021-08-31 06:52] LABS: Anion Gap 4 mmol/L (8-16); Blood Urea Nitrogen 14 mg/dL (7-18); Calcium 7.7 mg/dL (8.5-10.1); Carbon Dioxide 35 mmol/L (21-32); Chloride 99 mmol/L (98-108); Estimated CRCL calculation 43 ml/min; Estimated Glomerular Filt Rate > 60; Glucose 319 mg/dL (70-99); Osmolality Calculated 298 mOsm/kg (285-295); Potassium 3.1 mmol/L (3.5-5.1); Sodium 138 mmol/L (136-145)
[2021-08-31 08:20] LABS: Glucose Point of Care 348 mg/dl (65-105)
[2021-08-31 08:59] LABS: Magnesium 1.5 mg/dL (1.8-2.4)
[2021-08-31] MEDS: APIXABAN 2.5 MG TABLET 5 MG PO ×2 (09:32→21:24)
[2021-08-31] MEDS: POTASSIUM CHLORIDE 20 MEQ PACKET (FOR LIQUID) 40 MEQ PO (09:34)
[2021-08-31 12:01] LABS: Glucose Point of Care 279 mg/dl (65-105)
[2021-08-31] MEDS: MAGNESIUM SULF 4 GM/WATER100ML 4 GM/100 ML BAG IVPB (13:59)
--- NOTE | 2021-08-31 16:22 | PM.IMPN ---
Progress Note: A&P Assessment and Plan (1) Cardiogenic shock: Code(s): R57.0 - Cardiogenic shock Status: Acute Assessment and Plan: Pt was hypotensive with systolic of 60s and 80s, cool skin to touch, cutaneous pallor, altered level of consciousness requiring multiple IVF boluses followed by Levophed at 10mcg/min which has slowly been titrated down but not off at this time, last BP 119/83 (95) HR 66, 2L NC, Troponin were 16.9, 16.4, 17.4, Pt has no complaint of CP but does complain of middle back pain between shoulders. Pt is on wait list at [facility] in [place], [place] 08/30/2021 Levophed being weaned off currently 3 mcg/min, extremities still cool to touch, mottling improved since yesterday 08/31/2021 Levophed stopped last night and Phenylephrine started at 30 mcg/min and being titrated for MAP >65 mmHg (2) Hyperosmolar hyperglycemic state (HHS): Code(s): E11.00 - Type 2 diabetes mellitus with hyperosmolarity without nonketotic hyperglycemic-hyperosmolar coma (NKHHC); E11.65 - Type 2 diabetes mellitus with hyperglycemia Status: Acute Assessment and Plan: Pt had IV Insulin with D5 1/2NS which has corrected his glucose levels which were as high as > 500 mg/dL, now around 150-160s and insulin drip is off with 1/2 NS at 100 ml/h, Na has been corrected with last being 143 originally 150, Osmolality high was 338 and currently 303, Pt now more alert and responding more than Yes No. Will recheck BMP at 1500 hours. 08/30/2021 Osmolality 299 with glucose 150s-260, Pt not eating at this time, continue to monitor and will restart DM medications when eating 08/31/2021 Improved osmolality, glucose restarted Humalog Mix 75/25 home insulin but at 15 U BID vs home dose 20 U BID with SSI and ACHS glucose monitoring and hypoglycemic protocol in place. (3) Acidosis, lactic: Code(s): E87.2 - Acidosis Status: Acute Assessment and Plan: High of 6.8, WBC 13.6, only site of infection is coccyx and hip area with stage 1 decub at coccyx about 4cm diameter and abrasions/skin tear at both hips about the size of a quarter, once renal function has improved and Levophed is weaned off will get CT chest/abd/pelvis w/ contrast, Ab coverage at this time is Vancomycin and Cefepime both renal dosed, Blood Cx Pending 08/30/2021 1.4, continue with Ab (4) Hypokalemia: Code(s): E87.6 - Hypokalemia Status: Acute Assessment and Plan: K low of 2 and has received total of 80 mEq IV K riders with last level 2.7 after 3rd K rider, will monitor with next lab at 1500 hours or so. 08/31/2021 Mag 1.5 supplemented with 4 gm yesterday was 2 gm, K 3.1 40 mEq liquid potassium, will recheck (5) GERI (acute kidney injury): Code(s): N17.9 - Acute kidney failure, unspecified Status: Acute Assessment and Plan: Currently improved BUN 29, Cr 1.42, eCrCl 30.4, eGFR 52, Pt still on Levophed at this time 5 mcg/min. current fluid balance + 3790 ml 08/31/2021 Resolved (6) Diabetes 1.5, managed as type 2: Code(s): E13.9 - Other specified diabetes mellitus without complications Status: Acute Assessment and Plan: Glucose checks currently Q4H, IV Insulin drip DC'ed, glucose levels around 150-160s, alert enough to trial sips and chips, will adjust medications as needed. 08/31/2021 Diabetic diet, ACHS glucose checks, hypoglycemic protocol, SSI with decreased home Humalog Mix 75/25 at 15 Units BID. (7) Decubitus skin ulcer: Code(s): L89.90 - Pressure ulcer of unspecified site, unspecified stage Status: Acute Assessment and Plan: Consult to Wound Care for Coccyx and Hip wounds: Geremias Krause office: [phone] Subjective Date/time seen: 08/31/21 16:22 Pt is alert and oriented laying in bed and feeling hungry. He was given some peanut butter and crackers over night and he tolerated this well. Pt now on Diabetic Diet. He is not complaining of much pain other
[2021-08-31 16:34] LABS: Glucose Point of Care 208 mg/dl (65-105)
--- NOTE | 2021-08-31 16:55 | PC.NURSE ---
0800 Bp 92/70 MAP 71 Phenylephrine gtt 30mcg/min or 9.18ml/hr 0830 BP 100/72 MAP 68 0900 BP 98/74 0930 BP 91/71 1000 BP 85/65 MAP 65 1030 BP 101/69 MAP 71 1100 BP 120/80 MAP 91 1130 BP 95/73 MAP 89 1200 BP 89/68 MAP 71 Phenylephrine gtt 20mcg/min or 6.12ml/hr 1230 BP 103/80 MAP 94 1300 BP 113/80 MAP 96 1330 BP 98/64 MAP 73 1400 BP 76/56 MAP 62 1430 BP 86/43 MAP 71 1500 BP 88/64 MAP 72 1530 BP 86/65 MAP 71 patient arouses easily this shift. feeds self 100% of all meals and asks for for. incont of liquid stool. claims he can not feel it coming out only smell when done. sr on tele with rates 70-80's. falls asleep easily. loera has pale clear yellow urine. r iv was red and warm to touch and was removed. ice pack applied. no c/o pain. excited to talk with . turned and positioned.
[2021-08-31 17:15] LABS: Anion Gap 2 mmol/L (8-16); Blood Urea Nitrogen 10 mg/dL (7-18); Calcium 7.7 mg/dL (8.5-10.1); Carbon Dioxide 37 mmol/L (21-32); Chloride 99 mmol/L (98-108); Estimated CRCL calculation 49 ml/min; Estimated Glomerular Filt Rate > 60; Glucose 181 mg/dL (70-99); Magnesium 2.5 mg/dL (1.8-2.4); Osmolality Calculated 290 mOsm/kg (285-295); Potassium 3.4 mmol/L (3.5-5.1); Sodium 138 mmol/L (136-145)
--- NOTE | 2021-08-31 17:20 | PC.NURSE ---
césar from [facility] called and update given. claims no beds and cont to be on wait list.
[2021-08-31] MEDS: SODIUM CHLORIDE 0.9% IV 500 ML IV CONT (17:41)
[2021-08-31] MEDS: POTASSIUM CHLORIDE 20 MEQ PACKET (FOR LIQUID) PO (17:56)
[2021-08-31] MEDS: ACETAMINOPHEN 500 MG TABLET 1000 MG PO (21:25)
[2021-08-31 21:34] LABS: Glucose Point of Care 262 mg/dl (65-105)
[2021-09-01] VITALS (33 sets, daily range): BP systolic 71–108; BP diastolic 57–80; PULSE 71–97; RESP 16–18; TEMP 36.3–37.3; O2SAT 97–100
[2021-09-01] MEDS: SODIUM CHLORIDE 0.45% 1,000 ML 100 ML IV CONT (00:22)
[2021-09-01 05:33] LABS: Basophils Absolute Auto 0.02 K/mm3 (0.00-0.10); Basophils Percent Auto 0.2 % (0.0-1.0); Eosinophils Absolute Auto 0.18 K/mm3 (0.02-0.50); Hematocrit 29.4 % (40.0-54.0); Hemoglobin 9.9 g/dL (14.0-18.0); Immature Granulocyte Absolute 0.04 K/mm3 (0.00-0.00); Immature Granulocyte Percent A 0.4 % (0.0-0.0); Lymphocytes Absolute Auto 2.23 K/mm3 (1.10-4.50); Lymphocytes Percent Auto 24.2 % (18.0-42.0); Mean Corpuscular HGB Conc 33.7 g/dL (32.0-36.0); Mean Corpuscular Hemoglobin 29.5 pg (27.0-31.0); Mean Corpuscular Volume 87.5 fL (78.0-102.0); Mean Platelet Volume 9.4 fl (8.7-11.0); Monocytes Absolute Auto 0.49 K/mm3 (0.10-0.90); Monocytes Percent Auto 5.3 % (2.0-11.0); Neutrophils Absolute Auto 6.3 K/mm3 (1.7-7.2); Neutrophils Percent Auto 67.9 % (50.0-70.0); Platelet Count Result 149 K/mm3 (150-420); Red Blood Count 3.36 M/mm3 (4.70-6.10); Red Cell Distribution Width 13.5 % (11.6-14.4); White Blood Count 9.2 K/mm3 (4.8-10.8)
[2021-09-01 05:48] LABS: Alanine Aminotransferase 33 U/L (16-63); Albumin Level 1.9 g/dL (3.4-5.0); Alkaline Phosphatase 652 U/L (46-116); Anion Gap 0 mmol/L (8-16); Aspartate Amino Transferase 65 U/L (15-37); Bilirubin,Total 0.4 mg/dL (0.00-1.00); Blood Urea Nitrogen 8 mg/dL (7-18); Calcium 7.3 mg/dL (8.5-10.1); Carbon Dioxide 38 mmol/L (21-32); Chloride 100 mmol/L (98-108); Estimated CRCL calculation 56 ml/min; Estimated Glomerular Filt Rate > 60; Glucose 154 mg/dL (70-99); Magnesium 1.8 mg/dL (1.8-2.4); Osmolality Calculated 287 mOsm/kg (285-295); Potassium 3.4 mmol/L (3.5-5.1); Sodium 138 mmol/L (136-145); Total Protein 4.6 g/dL (6.4-8.2)
--- NOTE | 2021-09-01 05:55 | PC.NURSE ---
[facility] called for update on patient No ICU beds available at this time.
[2021-09-01 06:33] LABS: Vancomycin Trough 3.4 ug/mL (10.0-15.0)
[2021-09-01] MEDS: MORPHINE SULFATE (*CRX) 2 MG/ML INJ IV PUSH ×2 (07:01→17:18)
[2021-09-01] MEDS: POTASSIUM CHLORIDE 20 MEQ PACKET (FOR LIQUID) PO (10:22)
[2021-09-01] MEDS: APIXABAN 2.5 MG TABLET 5 MG PO ×2 (10:22→21:20)
--- NOTE | 2021-09-01 10:40 | PC.NURSE ---
[facility]. Updated given on patient.
[2021-09-01 12:11] LABS: Glucose Point of Care 195 mg/dl (65-105)
--- NOTE | 2021-09-01 12:20 | PM.IMPN ---
Progress Note: A&P Assessment and Plan (1) Cardiogenic shock: Code(s): R57.0 - Cardiogenic shock <ALEKSANDRA Petty - Last Filed: 09/01/21 13:03> Status: Acute <ALEKSANDRA Petty - Last Filed: 09/01/21 13:03> Assessment and Plan: Pt was hypotensive with systolic of 60s and 80s, cool skin to touch, cutaneous pallor, altered level of consciousness requiring multiple IVF boluses followed by Levophed at 10mcg/min which has slowly been titrated down but not off at this time, last BP 119/83 (95) HR 66, 2L NC, Troponin were 16.9, 16.4, 17.4, Pt has no complaint of CP but does complain of middle back pain between shoulders. Pt is on wait list at [facility] in [place], [place] 08/30/2021 Levophed being weaned off currently 3 mcg/min, extremities still cool to touch, mottling improved since yesterday 08/31/2021 Levophed stopped last night and Phenylephrine started at 30 mcg/min and being titrated for MAP >65 mmHg 09/01/2021 Continue to titrate Phenylephrine for MAP > 65, May consider addition of Midodrine, Pt on wait list for ICU <ALEKSANDRA Petty - Last Filed: 09/01/21 13:03> (2) Hyperosmolar hyperglycemic state (HHS): Code(s): E11.00 - Type 2 diabetes mellitus with hyperosmolarity without nonketotic hyperglycemic-hyperosmolar coma (NKHHC); E11.65 - Type 2 diabetes mellitus with hyperglycemia <ALEKSANDRA Petty - Last Filed: 09/01/21 13:03> Status: Acute <ALEKSANDRA Petty - Last Filed: 09/01/21 13:03> Assessment and Plan: Pt had IV Insulin with D5 1/2NS which has corrected his glucose levels which were as high as > 500 mg/dL, now around 150-160s and insulin drip is off with 1/2 NS at 100 ml/h, Na has been corrected with last being 143 originally 150, Osmolality high was 338 and currently 303, Pt now more alert and responding more than Yes No. Will recheck BMP at 1500 hours. 08/30/2021 Osmolality 299 with glucose 150s-260, Pt not eating at this time, continue to monitor and will restart DM medications when eating 08/31/2021 Improved osmolality, glucose restarted Humalog Mix 75/25 home insulin but at 15 U BID vs home dose 20 U BID with SSI and ACHS glucose monitoring and hypoglycemic protocol in place. 09/01/2021 Will increase Humalog Mix 75/25 to home dose of 20 BID, Pt is ok to have snack at HS, continue to monitor, Osmolality resolved <ALEKSANDRA Petty - Last Filed: 09/01/21 13:03> (3) Acidosis, lactic: Code(s): E87.2 - Acidosis <ALEKSANDRA Petty - Last Filed: 09/01/21 13:03> Status: Acute <ALEKSANDRA Petty - Last Filed: 09/01/21 13:03> Assessment and Plan: High of 6.8, WBC 13.6, only site of infection is coccyx and hip area with stage 1 decub at coccyx about 4cm diameter and abrasions/skin tear at both hips about the size of a quarter, once renal function has improved and Levophed is weaned off will get CT chest/abd/pelvis w/ contrast, Ab coverage at this time is Vancomycin and Cefepime both renal dosed, Blood Cx Pending 08/30/2021 1.4, continue with Ab 09/01/2021 ... <ALEKSANDRA Petty - Last Filed: 09/01/21 13:03> (4) Hypokalemia: Code(s): E87.6 - Hypokalemia <ALEKSANDRA Petty - Last Filed: 09/01/21 13:03> Status: Acute <ALEKSANDRA Petty - Last Filed: 09/01/21 13:03> Assessment and Plan: K low of 2 and has received total of 80 mEq IV K riders with last level 2.7 after 3rd K rider, will monitor with next lab at 1500 hours or so. 08/31/2021 Mag 1.5 supplemented with 4 gm yesterday was 2 gm, K 3.1 40 mEq liquid potassium, will recheck 09/01/2021 Potassium 3.4 supplemented with 20 mEq Powder, Magnesium 1.8 this AM, continue to monitor <ALEKSANDRA Petty - Last Filed: 09/01/21 13:03> (5) GERI (acute kidney injury): Code(s): N17.9 - Acute kidney failure, unspecified <ALEKSANDRA Petty - Last Filed: 09/01/21 13:03> Status: Acute <Ri
--- NOTE | 2021-09-01 14:37 | PC.NURSE ---
1210--Wound RN consult made today along with print support specialist, Daphne Howell NP. Assessed patient coccyx area. Coccyx area is red but is blanching. No open areas noted. No s/s of infection. Lakeshia Howell spoke with hospitalist, Bill JONES. Recommended to continue to protect coccyx area with foam border, change daily and prn.
--- NOTE | 2021-09-01 15:14 | PC.NURSE ---
[facility] called and stated they still do not have a bed available for patient and would not have one any more today.
[2021-09-01 17:31] LABS: Glucose Point of Care 213 mg/dl (65-105)
--- NOTE | 2021-09-01 19:10 | PC.NURSE ---
Completed change of shift report with day shift nurse. Patient is now on phenylephrine HCL 30 mcg/min continuous IV to keep his MAP above 60. Day shift has been charting BP every 60 minutes, as patient has been very stable. Will begin every 30 minutes and see. Patient is resting comfortably in bed, talking to his on the phone. He has requested snacks, and pain medicine, when it is due. His pain is in his buttocks. Patient is resting on his back, and will be encouraged to rest on his side to help with the pain. Morphine is not due for some time.
[2021-09-01] MEDS: ACETAMINOPHEN 500 MG TABLET 1000 MG PO (21:20)
[2021-09-02] VITALS (28 sets, daily range): BP systolic 75–107; BP diastolic 40–71; PULSE 70–88; RESP 16–20; TEMP 36.3–37.9; O2SAT 95–100
--- NOTE | 2021-09-02 01:49 | PC.NURSE ---
Dr. Reddy notified of pt's current blood pressure and MAP. Will call back with orders.
--- NOTE | 2021-09-02 01:59 | PC.NURSE ---
Orders to increase phenylephrine to 40 mcg/min and to recheck blood pressure in 10 minutes.
--- NOTE | 2021-09-02 02:20 | PC.NURSE ---
Pt's blood pressure is 92/56 with a map of 68; Dr. Reddy notified and no new orders at this time.
[2021-09-02 05:32] LABS: Basophils Absolute Auto 0.02 K/mm3 (0.00-0.10); Basophils Percent Auto 0.2 % (0.0-1.0); Eosinophils Absolute Auto 0.22 K/mm3 (0.02-0.50); Eosinophils Percent Auto 2.5 % (1.0-6.0); Hematocrit 28.3 % (40.0-54.0); Hemoglobin 9.2 g/dL (14.0-18.0); Immature Granulocyte Absolute 0.06 K/mm3 (0.00-0.00); Immature Granulocyte Percent A 0.7 % (0.0-0.0); Lymphocytes Absolute Auto 1.95 K/mm3 (1.10-4.50); Lymphocytes Percent Auto 21.8 % (18.0-42.0); Mean Corpuscular HGB Conc 32.5 g/dL (32.0-36.0); Mean Corpuscular Hemoglobin 28.7 pg (27.0-31.0); Mean Corpuscular Volume 88.2 fL (78.0-102.0); Mean Platelet Volume 9.3 fl (8.7-11.0); Monocytes Absolute Auto 0.58 K/mm3 (0.10-0.90); Monocytes Percent Auto 6.5 % (2.0-11.0); Neutrophils Absolute Auto 6.1 K/mm3 (1.7-7.2); Neutrophils Percent Auto 68.3 % (50.0-70.0); Platelet Count Result 136 K/mm3 (150-420); Red Blood Count 3.21 M/mm3 (4.70-6.10); Red Cell Distribution Width 13.5 % (11.6-14.4)
[2021-09-02 05:51] LABS: Alanine Aminotransferase 26 U/L (16-63); Albumin Level 1.8 g/dL (3.4-5.0); Alkaline Phosphatase 501 U/L (46-116); Anion Gap 1 mmol/L (8-16); Aspartate Amino Transferase 34 U/L (15-37); Bilirubin,Total 0.4 mg/dL (0.00-1.00); Blood Urea Nitrogen 11 mg/dL (7-18); Calcium 7.4 mg/dL (8.5-10.1); Carbon Dioxide 35 mmol/L (21-32); Chloride 101 mmol/L (98-108); Estimated CRCL calculation 62 ml/min; Estimated Glomerular Filt Rate > 60; Glucose 178 mg/dL (70-99); Magnesium 1.4 mg/dL (1.8-2.4); Osmolality Calculated 287 mOsm/kg (285-295); Sodium 137 mmol/L (136-145); Total Protein 4.5 g/dL (6.4-8.2)
[2021-09-02] MEDS: ACETAMINOPHEN 500 MG TABLET 1000 MG PO (09:27)
[2021-09-02] MEDS: APIXABAN 2.5 MG TABLET 5 MG PO ×2 (09:28→20:36)
[2021-09-02] MEDS: MAGNESIUM SULF 4 GM/WATER100ML 4 GM/100 ML BAG IVPB (09:29)
[2021-09-02 12:17] LABS: Glucose Point of Care 124 mg/dl (65-105)
[2021-09-02] MEDS: LOPERAMIDE HCL 2 MG CAPSULE PO ×4 (12:19→21:05)
--- NOTE | 2021-09-02 13:39 | WPDPN ---
Progress Note: A&P Assessment and Plan (1) Cardiogenic shock: Code(s): R57.0 - Cardiogenic shock <LORAINE Logan - Last Filed: 09/02/21 13:48> Status: Acute <LORAINE Logan - Last Filed: 09/02/21 13:48> Assessment and Plan: Pt was hypotensive with systolic of 60s and 80s, cool skin to touch, cutaneous pallor, altered level of consciousness requiring multiple IVF boluses followed by Levophed at 10mcg/min which has slowly been titrated down but not off at this time, last BP 119/83 (95) HR 66, 2L NC, Troponin were 16.9, 16.4, 17.4, Pt has no complaint of CP but does complain of middle back pain between shoulders. Pt is on wait list at [facility] in [place], [place] 08/30/2021 Levophed being weaned off currently 3 mcg/min, extremities still cool to touch, mottling improved since yesterday 08/31/2021 Levophed stopped last night and Phenylephrine started at 30 mcg/min and being titrated for MAP >65 mmHg 09/01/2021 Continue to titrate Phenylephrine for MAP > 65, May consider addition of Midodrine, Pt on wait list for ICU phenylephrine 30mcg/min map is 65 or greater <LORAINE Logan - Last Filed: 09/02/21 13:48> (2) Hyperosmolar hyperglycemic state (HHS): Code(s): E11.00 - Type 2 diabetes mellitus with hyperosmolarity without nonketotic hyperglycemic-hyperosmolar coma (NKHHC); E11.65 - Type 2 diabetes mellitus with hyperglycemia <LORAINE Logan - Last Filed: 09/02/21 13:48> Status: Acute <LORAINE Logan - Last Filed: 09/02/21 13:48> Assessment and Plan: Pt had IV Insulin with D5 1/2NS which has corrected his glucose levels which were as high as > 500 mg/dL, now around 150-160s and insulin drip is off with 1/2 NS at 100 ml/h, Na has been corrected with last being 143 originally 150, Osmolality high was 338 and currently 303, Pt now more alert and responding more than Yes No. Will recheck BMP at 1500 hours. 08/30/2021 Osmolality 299 with glucose 150s-260, Pt not eating at this time, continue to monitor and will restart DM medications when eating 08/31/2021 Improved osmolality, glucose restarted Humalog Mix 75/25 home insulin but at 15 U BID vs home dose 20 U BID with SSI and ACHS glucose monitoring and hypoglycemic protocol in place. 09/01/2021 Will increase Humalog Mix 75/25 to home dose of 20 BID, Pt is ok to have snack at HS, continue to monitor, Osmolality resolved <HECTOR Logan-Nathaniel - Last Filed: 09/02/21 13:48> (3) Acidosis, lactic: Code(s): E87.2 - Acidosis <HECTOR Logan-C - Last Filed: 09/02/21 13:48> Status: Acute <LORAINE Logan - Last Filed: 09/02/21 13:48> Assessment and Plan: High of 6.8, WBC 13.6, only site of infection is coccyx and hip area with stage 1 decub at coccyx about 4cm diameter and abrasions/skin tear at both hips about the size of a quarter, once renal function has improved and Levophed is weaned off will get CT chest/abd/pelvis w/ contrast, Ab coverage at this time is Vancomycin and Cefepime both renal dosed, Blood Cx Pending 08/30/2021 1.4, continue with Ab 09/01/2021 ... <LORAINE Logan - Last Filed: 09/02/21 13:48> (4) Hypokalemia: Code(s): E87.6 - Hypokalemia <HECTOR Logan-Nathaniel - Last Filed: 09/02/21 13:48> Status: Acute <LORAINE Logan - Last Filed: 09/02/21 13:48> Assessment and Plan: K low of 2 and has received total of 80 mEq IV K riders with last level 2.7 after 3rd K rider, will monitor with next lab at 1500 hours or so. 08/31/2021 Mag 1.5 supplemented with 4 gm yesterday was 2 gm, K 3.1 40 mEq liquid potassium, will recheck 09/01/2021 Potassium 3.4 supplemented with 20 mEq Powder, Magnesium 1.8 this AM, continue to monitor Potassium within normal limits <Wing Schwarz, PICK UP-C - Last Filed: 09/02/21 13:48> (5) GERI (acute kidney injury): Code(s): N17.9 - Acute kidney failure, unspec
[2021-09-02] MEDS: HYDROcodone/acetaminophen (*CRX) 5-325 MG TABLET 1 TAB PO ×2 (13:49→20:37)
[2021-09-02] MEDS: SODIUM CHLORIDE 0.45% 1,000 ML 500 ML IV CONT (13:50)
[2021-09-02] MEDS: SODIUM CHLORIDE 0.45% 1,000 ML 125 ML IV CONT (16:00)
[2021-09-02 17:15] LABS: Glucose Point of Care 288 mg/dl (65-105)
[2021-09-02 21:22] LABS: Glucose Point of Care 283 mg/dl (65-105)
[2021-09-03] VITALS (20 sets, daily range): BP systolic 73–108; BP diastolic 49–80; PULSE 60–81; RESP 14–20; TEMP 36.4–37; O2SAT 95–100
--- NOTE | 2021-09-03 00:05 | PC.NURSE ---
Called Dr. Santana to report pt's blood pressure of 79/42 and a map of 62. New orders were received and noted.
[2021-09-03] MEDS: LOPERAMIDE HCL 2 MG CAPSULE PO ×6 (00:11→20:11)
[2021-09-03] MEDS: traMADol HCL (*CRX) 50 MG TABLET PO (00:12)
--- NOTE | 2021-09-03 00:32 | PC.NURSE ---
Dr. Santana called with new orders for a 1000 ml/hr NS bolus. Orders received and noted.
[2021-09-03] MEDS: SODIUM CHLORIDE 0.9% IV 1,000 ML 999 ML IV CONT (00:44)
--- NOTE | 2021-09-03 01:01 | PC.NURSE ---
Follow up on PRN Tramadol. Patient appears to be sleeping by the rise and fall of his chest. No signs of pain noted. Call light in reach.
[2021-09-03] MEDS: SODIUM CHLORIDE 0.45% 1,000 ML 125 ML IV CONT (01:55)
--- NOTE | 2021-09-03 04:25 | PC.NURSE ---
DR Santana notified of patient's blood pressure 73/49 and pulse of 66 with MAP being 55. New orders received to increase Phenylepherine to 50mcg/minute and NS .45% to 150/hr.
--- NOTE | 2021-09-03 04:43 | PC.NURSE ---
[facility] called to get an update on pt's condition. Update given and [facility] said they didnt have a bed available at this time.
[2021-09-03 05:30] LABS: Hematocrit 26.2 % (40.0-54.0); Hemoglobin 8.3 g/dL (14.0-18.0); Mean Corpuscular HGB Conc 31.7 g/dL (32.0-36.0); Mean Corpuscular Hemoglobin 28.4 pg (27.0-31.0); Mean Corpuscular Volume 89.7 fL (78.0-102.0); Mean Platelet Volume 9.6 fl (8.7-11.0); Platelet Count Result 159 K/mm3 (150-420); Red Blood Count 2.92 M/mm3 (4.70-6.10); Red Cell Distribution Width 13.8 % (11.6-14.4); White Blood Count 9.3 K/mm3 (4.8-10.8)
--- NOTE | 2021-09-03 05:35 | PC.NURSE ---
Called Dr. Santana to report pt's current blood pressure and map; No new orders at this time.
[2021-09-03 05:43] LABS: Alanine Aminotransferase 26 U/L (16-63); Albumin Level 1.6 g/dL (3.4-5.0); Alkaline Phosphatase 430 U/L (46-116); Anion Gap 2 mmol/L (8-16); Aspartate Amino Transferase 45 U/L (15-37); Bilirubin,Total 0.3 mg/dL (0.00-1.00); Blood Urea Nitrogen 15 mg/dL (7-18); CRP 1.8 mg/dL (0.0-0.9); Calcium 6.9 mg/dL (8.5-10.1); Carbon Dioxide 31 mmol/L (21-32); Chloride 105 mmol/L (98-108); Estimated CRCL calculation 69 ml/min; Estimated Glomerular Filt Rate > 60; Glucose 125 mg/dL (70-99); Magnesium 1.7 mg/dL (1.8-2.4); Osmolality Calculated 287 mOsm/kg (285-295); Potassium 4.8 mmol/L (3.5-5.1); Sodium 138 mmol/L (136-145); Total Protein 4.2 g/dL (6.4-8.2)
[2021-09-03] MEDS: HYDROcodone/acetaminophen (*CRX) 5-325 MG TABLET 1 TAB PO (09:37)
[2021-09-03] MEDS: MAGNESIUM OXIDE 400 MG TABLET PO (09:37)
[2021-09-03] MEDS: APIXABAN 2.5 MG TABLET 5 MG PO ×2 (09:37→20:11)
[2021-09-03] MEDS: CALCIUM CARBONATE (OSCAL) 500 MG TABLET 250 MG PO ×3 (09:38→17:12)
--- NOTE | 2021-09-03 09:43 | WPDPN ---
Progress Note: A&P Assessment and Plan (1) Cardiogenic shock: Code(s): R57.0 - Cardiogenic shock <LORAINE Logan - Last Filed: 09/03/21 12:53> Status: Acute <LORAINE Logan - Last Filed: 09/03/21 12:53> Assessment and Plan: Pt was hypotensive with systolic of 60s and 80s, cool skin to touch, cutaneous pallor, altered level of consciousness requiring multiple IVF boluses followed by Levophed at 10mcg/min which has slowly been titrated down but not off at this time, last BP 119/83 (95) HR 66, 2L NC, Troponin were 16.9, 16.4, 17.4, Pt has no complaint of CP but does complain of middle back pain between shoulders. Pt is on wait list at [facility] in [place], [place] 08/30/2021 Levophed being weaned off currently 3 mcg/min, extremities still cool to touch, mottling improved since yesterday 08/31/2021 Levophed stopped last night and Phenylephrine started at 30 mcg/min and being titrated for MAP >65 mmHg 09/01/2021 Continue to titrate Phenylephrine for MAP > 65, May consider addition of Midodrine, Pt on wait list for ICU phenylephrine 30mcg/min map is 65 or greater map at 77 bp 96/66 <LORAINE Logan - Last Filed: 09/03/21 12:53> (2) Hyperosmolar hyperglycemic state (HHS): Code(s): E11.00 - Type 2 diabetes mellitus with hyperosmolarity without nonketotic hyperglycemic-hyperosmolar coma (NKHHC); E11.65 - Type 2 diabetes mellitus with hyperglycemia <LORAINE Logan - Last Filed: 09/03/21 12:53> Status: Acute <LORAINE Logan - Last Filed: 09/03/21 12:53> Assessment and Plan: Pt had IV Insulin with D5 1/2NS which has corrected his glucose levels which were as high as > 500 mg/dL, now around 150-160s and insulin drip is off with 1/2 NS at 100 ml/h, Na has been corrected with last being 143 originally 150, Osmolality high was 338 and currently 303, Pt now more alert and responding more than Yes No. Will recheck BMP at 1500 hours. 08/30/2021 Osmolality 299 with glucose 150s-260, Pt not eating at this time, continue to monitor and will restart DM medications when eating 08/31/2021 Improved osmolality, glucose restarted Humalog Mix 75/25 home insulin but at 15 U BID vs home dose 20 U BID with SSI and ACHS glucose monitoring and hypoglycemic protocol in place. 09/01/2021 Will increase Humalog Mix 75/25 to home dose of 20 BID, Pt is ok to have snack at HS, continue to monitor, Osmolality resolved BS <300 <LORAINE Logan - Last Filed: 09/03/21 12:53> (3) Acidosis, lactic: Code(s): E87.2 - Acidosis <LORAINE Logan - Last Filed: 09/03/21 12:53> Status: Acute <LORAINE Logan - Last Filed: 09/03/21 12:53> Assessment and Plan: High of 6.8, WBC 13.6, only site of infection is coccyx and hip area with stage 1 decub at coccyx about 4cm diameter and abrasions/skin tear at both hips about the size of a quarter, once renal function has improved and Levophed is weaned off will get CT chest/abd/pelvis w/ contrast, Ab coverage at this time is Vancomycin and Cefepime both renal dosed, Blood Cx Pending 08/30/2021 1.4, continue with Ab 09/01/2021 ... <LORAINE Logan - Last Filed: 09/03/21 12:53> (4) Hypokalemia: Code(s): E87.6 - Hypokalemia <LORAINE Logan - Last Filed: 09/03/21 12:53> Status: Acute <LORAINE Logan - Last Filed: 09/03/21 12:53> Assessment and Plan: K low of 2 and has received total of 80 mEq IV K riders with last level 2.7 after 3rd K rider, will monitor with next lab at 1500 hours or so. 08/31/2021 Mag 1.5 supplemented with 4 gm yesterday was 2 gm, K 3.1 40 mEq liquid potassium, will recheck 09/01/2021 Potassium 3.4 supplemented with 20 mEq Powder, Magnesium 1.8 this AM, continue to monitor Potassium within normal limits <Wing Schwarz, PROOF PLATE MAKER-C - Last Filed: 09/03/21 12:53> (5) GERI (acute kidney injury): Code(s): N17.
[2021-09-03] MEDS: MORPHINE SULFATE (*CRX) 4 MG/ML INJ IV PUSH (11:47)
[2021-09-03] MEDS: GABAPENTIN 400 MG CAPSULE PO ×2 (11:48→17:12)
[2021-09-03 11:59] LABS: Glucose Point of Care 375 mg/dl (65-105)
[2021-09-03 12:27] LABS: Vancomycin Trough 10.5 ug/mL (10.0-15.0)
[2021-09-03 16:10] LABS: Glucose Point of Care 351 mg/dl (65-105)
[2021-09-03] MEDS: ALBUMIN HUMAN 25% 25 GM/100 ML 100 ML IVPB (17:12)
[2021-09-03] MEDS: traZODone HCL 25 MG TABLET PO (20:11)
[2021-09-03 22:21] LABS: Glucose Point of Care 203 mg/dl (65-105)
[2021-09-04] VITALS (20 sets, daily range): BP systolic 83–111; BP diastolic 59–77; PULSE 65–106; RESP 16–20; TEMP 36.3–37.3; O2SAT 95–99
[2021-09-04] MEDS: ALBUMIN HUMAN 25% 25 GM/100 ML 100 ML IVPB ×4 (00:08→18:01)
--- NOTE | 2021-09-04 04:50 | PC.NURSE ---
[facility] called for update on patient. No available beds @ this time.
[2021-09-04 05:12] LABS: Hematocrit 25.7 % (40.0-54.0); Hemoglobin 8.4 g/dL (14.0-18.0); Mean Corpuscular HGB Conc 32.7 g/dL (32.0-36.0); Mean Corpuscular Hemoglobin 29.5 pg (27.0-31.0); Mean Corpuscular Volume 90.2 fL (78.0-102.0); Mean Platelet Volume 9.4 fl (8.7-11.0); Platelet Count Result 175 K/mm3 (150-420); Red Blood Count 2.85 M/mm3 (4.70-6.10); Red Cell Distribution Width 13.9 % (11.6-14.4)
[2021-09-04 05:32] LABS: Alanine Aminotransferase 34 U/L (16-63); Albumin Level 2.6 g/dL (3.4-5.0); Alkaline Phosphatase 554 U/L (46-116); Anion Gap 5 mmol/L (8-16); Aspartate Amino Transferase 64 U/L (15-37); Bilirubin,Total 0.4 mg/dL (0.00-1.00); Blood Urea Nitrogen 17 mg/dL (7-18); Calcium 7.5 mg/dL (8.5-10.1); Carbon Dioxide 29 mmol/L (21-32); Chloride 101 mmol/L (98-108); Estimated CRCL calculation 56 ml/min; Estimated Glomerular Filt Rate > 60; Magnesium 1.4 mg/dL (1.8-2.4); Osmolality Calculated 299 mOsm/kg (285-295); Potassium 5.5 mmol/L (3.5-5.1); Sodium 135 mmol/L (136-145); Total Protein 5.1 g/dL (6.4-8.2)
[2021-09-04 05:34] LABS: Glucose 422 mg/dL (70-99)
--- NOTE | 2021-09-04 05:34 | PC.NURSE ---
Lab called to report critical glucose of 422.
--- NOTE | 2021-09-04 05:38 | PC.NURSE ---
Dr. Mensah notified of pt's blood glucose value. No new orders at this time.
--- NOTE | 2021-09-04 05:45 | PC.NURSE ---
Patient's blood sugar per labs is 422. Batool Preston, RN, Charge Nurse notified Dr Mensah and Dr kirby to give patient his regularly scheduled insulin. Insulin given. Patient sleeping and barely awakened for insulin to be given or for BP to be taken. Call light in reach.
[2021-09-04 07:53] LABS: Glucose Point of Care 151 mg/dl (65-105)
[2021-09-04 08:03] LABS: Glucose Point of Care 399 mg/dl (65-105)
[2021-09-04] MEDS: MAGNESIUM OXIDE 400 MG TABLET PO (08:31)
[2021-09-04] MEDS: GABAPENTIN 400 MG CAPSULE PO ×3 (08:32→16:59)
[2021-09-04] MEDS: APIXABAN 2.5 MG TABLET 5 MG PO ×2 (08:32→21:15)
[2021-09-04] MEDS: CALCIUM CARBONATE (OSCAL) 500 MG TABLET 250 MG PO ×3 (08:32→16:59)
[2021-09-04] MEDS: MORPHINE SULFATE (*CRX) 4 MG/ML INJ IV PUSH ×2 (10:28→21:15)
--- NOTE | 2021-09-04 11:00 | PC.NURSE ---
Incontinent of large pastey brown stool, cleansed and new mepilex applied to coccyx, tolerated well,
[2021-09-04 11:30] LABS: Glucose Point of Care 258 mg/dl (65-105)
--- NOTE | 2021-09-04 12:42 | WPDPN ---
Progress Note: A&P Assessment and Plan (1) Cardiogenic shock: Code(s): R57.0 - Cardiogenic shock <LORAINE Logan - Last Filed: 09/04/21 13:14> Status: Acute <LORAINE Logan - Last Filed: 09/04/21 13:14> Assessment and Plan: Pt was hypotensive with systolic of 60s and 80s, cool skin to touch, cutaneous pallor, altered level of consciousness requiring multiple IVF boluses followed by Levophed at 10mcg/min which has slowly been titrated down but not off at this time, last BP 119/83 (95) HR 66, 2L NC, Troponin were 16.9, 16.4, 17.4, Pt has no complaint of CP but does complain of middle back pain between shoulders. Pt is on wait list at [facility] in [place], [place] 08/30/2021 Levophed being weaned off currently 3 mcg/min, extremities still cool to touch, mottling improved since yesterday 08/31/2021 Levophed stopped last night and Phenylephrine started at 30 mcg/min and being titrated for MAP >65 mmHg 09/01/2021 Continue to titrate Phenylephrine for MAP > 65, May consider addition of Midodrine, Pt on wait list for ICU phenylephrine 30mcg/min map is 65 or greater map at 77 bp 96/66 Map 72 blood pressure 92/60, phenylephrine 40 MCG titrating down <LORAINE Logan - Last Filed: 09/04/21 13:14> (2) Hyperosmolar hyperglycemic state (HHS): Code(s): E11.00 - Type 2 diabetes mellitus with hyperosmolarity without nonketotic hyperglycemic-hyperosmolar coma (NKHHC); E11.65 - Type 2 diabetes mellitus with hyperglycemia <LORAINE Logan - Last Filed: 09/04/21 13:14> Status: Acute <LORAINE Logan - Last Filed: 09/04/21 13:14> Assessment and Plan: Pt had IV Insulin with D5 1/2NS which has corrected his glucose levels which were as high as > 500 mg/dL, now around 150-160s and insulin drip is off with 1/2 NS at 100 ml/h, Na has been corrected with last being 143 originally 150, Osmolality high was 338 and currently 303, Pt now more alert and responding more than Yes No. Will recheck BMP at 1500 hours. 08/30/2021 Osmolality 299 with glucose 150s-260, Pt not eating at this time, continue to monitor and will restart DM medications when eating 08/31/2021 Improved osmolality, glucose restarted Humalog Mix 75/25 home insulin but at 15 U BID vs home dose 20 U BID with SSI and ACHS glucose monitoring and hypoglycemic protocol in place. 09/01/2021 Will increase Humalog Mix 75/25 to home dose of 20 BID, Pt is ok to have snack at HS, continue to monitor, Osmolality resolved BS <300 <HECTOR Logan-Nathaniel - Last Filed: 09/04/21 13:14> (3) Acidosis, lactic: Code(s): E87.2 - Acidosis <HECTOR Logan-Nathaniel - Last Filed: 09/04/21 13:14> Status: Acute <BRITT LoganC - Last Filed: 09/04/21 13:14> Assessment and Plan: High of 6.8, WBC 13.6, only site of infection is coccyx and hip area with stage 1 decub at coccyx about 4cm diameter and abrasions/skin tear at both hips about the size of a quarter, once renal function has improved and Levophed is weaned off will get CT chest/abd/pelvis w/ contrast, Ab coverage at this time is Vancomycin and Cefepime both renal dosed, Blood Cx Pending 08/30/2021 1.4, continue with Ab 09/01/2021 ... <HECTOR Logan-C - Last Filed: 09/04/21 13:14> (4) Hypokalemia: Code(s): E87.6 - Hypokalemia <HECTOR Logan-C - Last Filed: 09/04/21 13:14> Status: Acute <HECTOR Logan-C - Last Filed: 09/04/21 13:14> Assessment and Plan: K low of 2 and has received total of 80 mEq IV K riders with last level 2.7 after 3rd K rider, will monitor with next lab at 1500 hours or so. 08/31/2021 Mag 1.5 supplemented with 4 gm yesterday was 2 gm, K 3.1 40 mEq liquid potassium, will recheck 09/01/2021 Potassium 3.4 supplemented with 20 mEq Powder, Magnesium 1.8 this AM, continue to monitor Potassium within normal limits <Wing Schwarz, HECTOR-C - Last Filed: 09/04/
[2021-09-04 14:22] LABS: NIL 0.03 IU/mL; Quantiferon TB Plus, 1T NEGATIVE (NEGATIVE); TB2-NIL 0.01 IU/mL
--- NOTE | 2021-09-04 14:25 | PCOTNOTE ---
OT spoke with charge nurse regarding OT evaluation to be held until results of TB testing. MS
[2021-09-04 17:00] LABS: Glucose Point of Care 259 mg/dl (65-105)
--- NOTE | 2021-09-04 19:20 | PC.NURSE ---
Completed bedside change of shift report with day shift nurse. Patient is resting comfortably in his bed. He stated that he does not need anything at this time, as I am finally full! . Patient is no longer having difficulty with bouts of diarrhea. He has pain in his buttocks, but is able to tolerate the pain at this time. He currently has water, and his daughter brought him some sugar-free treats. His mood is up, and he appears to be hopeful for the future.
[2021-09-04] MEDS: traZODone HCL 25 MG TABLET PO (21:15)
[2021-09-04 21:26] LABS: Glucose Point of Care 51 mg/dl (65-105)
--- NOTE | 2021-09-04 21:48 | PC.NURSE ---
MD notified that patient's HS blood sugar result was 51. [place] juice and peanut butter with devin crackers given. MD to write new order.
[2021-09-04 22:27] LABS: Glucose Point of Care 74 mg/dl (65-105)
--- NOTE | 2021-09-04 22:50 | PC.NURSE ---
LATE ENTRY KCl 20 meq/Sw 100 ml 100 ml @50 mls/hr IVPB once - this was ended at 2029 on 08/29/21.
[2021-09-04 23:21] LABS: Glucose Point of Care 162 mg/dl (65-105)
[2021-09-05] VITALS (26 sets, daily range): BP systolic 84–108; BP diastolic 60–78; PULSE 77–106; RESP 16–18; TEMP 36.8–37.5; O2SAT 94–97
[2021-09-05] MEDS: ALBUMIN HUMAN 25% 25 GM/100 ML 100 ML IVPB (00:08)
--- NOTE | 2021-09-05 05:10 | PC.NURSE ---
Katherine, from [facility] called to get updated information on patient. She said that no ICU beds were available at this time.
[2021-09-05 05:11] LABS: Hematocrit 23.2 % (40.0-54.0); Hemoglobin 7.5 g/dL (14.0-18.0); Mean Corpuscular HGB Conc 32.3 g/dL (32.0-36.0); Mean Corpuscular Hemoglobin 29.4 pg (27.0-31.0); Platelet Count Result 204 K/mm3 (150-420); Red Blood Count 2.55 M/mm3 (4.70-6.10); Red Cell Distribution Width 14.4 % (11.6-14.4); White Blood Count 9.3 K/mm3 (4.8-10.8)
[2021-09-05 05:24] LABS: Alanine Aminotransferase 32 U/L (16-63); Albumin Level 3.3 g/dL (3.4-5.0); Alkaline Phosphatase 433 U/L (46-116); Anion Gap 4 mmol/L (8-16); Aspartate Amino Transferase 54 U/L (15-37); Bilirubin,Total 0.5 mg/dL (0.00-1.00); Blood Urea Nitrogen 15 mg/dL (7-18); Calcium 8.1 mg/dL (8.5-10.1); Carbon Dioxide 30 mmol/L (21-32); Chloride 104 mmol/L (98-108); Estimated CRCL calculation 62 ml/min; Estimated Glomerular Filt Rate > 60; Glucose 117 mg/dL (70-99); Magnesium 1.4 mg/dL (1.8-2.4); Osmolality Calculated 287 mOsm/kg (285-295); Potassium 4.8 mmol/L (3.5-5.1); Sodium 138 mmol/L (136-145); Total Protein 5.4 g/dL (6.4-8.2)
[2021-09-05] MEDS: CALCIUM CARBONATE (OSCAL) 500 MG TABLET 250 MG PO ×3 (09:55→17:18)
[2021-09-05] MEDS: MAGNESIUM OXIDE 400 MG TABLET PO (09:56)
[2021-09-05] MEDS: APIXABAN 2.5 MG TABLET 5 MG PO ×2 (09:56→20:59)
[2021-09-05] MEDS: GABAPENTIN 400 MG CAPSULE PO ×3 (09:56→17:18)
[2021-09-05] MEDS: HYDROcodone/acetaminophen (*CRX) 10-325 MG TABLET 1 TAB PO (10:07)
[2021-09-05 10:12] LABS: Troponin I 13.2 ng/L (0.00-60.4)
--- NOTE | 2021-09-05 11:05 | WPDPN ---
Progress Note: A&P Assessment and Plan (1) Cardiogenic shock: Code(s): R57.0 - Cardiogenic shock Status: Acute Assessment and Plan: Pt was hypotensive with systolic of 60s and 80s, cool skin to touch, cutaneous pallor, altered level of consciousness requiring multiple IVF boluses followed by Levophed at 10mcg/min which has slowly been titrated down but not off at this time, last BP 119/83 (95) HR 66, 2L NC, Troponin were 16.9, 16.4, 17.4, Pt has no complaint of CP but does complain of middle back pain between shoulders. Pt is on wait list at [facility] in [place], [place] 08/30/2021 Levophed being weaned off currently 3 mcg/min, extremities still cool to touch, mottling improved since yesterday 08/31/2021 Levophed stopped last night and Phenylephrine started at 30 mcg/min and being titrated for MAP >65 mmHg 09/01/2021 Continue to titrate Phenylephrine for MAP > 65, May consider addition of Midodrine, Pt on wait list for ICU Map 68 blood pressure 86/60, phenylephrine 30 MCG titrating down (2) Hyperosmolar hyperglycemic state (HHS): Code(s): E11.00 - Type 2 diabetes mellitus with hyperosmolarity without nonketotic hyperglycemic-hyperosmolar coma (NKHHC); E11.65 - Type 2 diabetes mellitus with hyperglycemia Status: Acute Assessment and Plan: Pt had IV Insulin with D5 1/2NS which has corrected his glucose levels which were as high as > 500 mg/dL, now around 150-160s and insulin drip is off with 1/2 NS at 100 ml/h, Na has been corrected with last being 143 originally 150, Osmolality high was 338 and currently 303, Pt now more alert and responding more than Yes No. Will recheck BMP at 1500 hours. 08/30/2021 Osmolality 299 with glucose 150s-260, Pt not eating at this time, continue to monitor and will restart DM medications when eating 08/31/2021 Improved osmolality, glucose restarted Humalog Mix 75/25 home insulin but at 15 U BID vs home dose 20 U BID with SSI and ACHS glucose monitoring and hypoglycemic protocol in place. 09/01/2021 Will increase Humalog Mix 75/25 to home dose of 20 BID, Pt is ok to have snack at HS, continue to monitor, Osmolality resolved (3) Acidosis, lactic: Code(s): E87.2 - Acidosis Status: Acute Assessment and Plan: High of 6.8, WBC 13.6, only site of infection is coccyx and hip area with stage 1 decub at coccyx about 4cm diameter and abrasions/skin tear at both hips about the size of a quarter, once renal function has improved and Levophed is weaned off will get CT chest/abd/pelvis w/ contrast, Ab coverage at this time is Vancomycin and Cefepime both renal dosed, Blood Cx Pending 08/30/2021 1.4, continue with Ab 09/01/2021 ... Resolved Antibiotics discontinued 7 days completed (4) Hypokalemia: Code(s): E87.6 - Hypokalemia Status: Acute Assessment and Plan: K low of 2 and has received total of 80 mEq IV K riders with last level 2.7 after 3rd K rider, will monitor with next lab at 1500 hours or so. 08/31/2021 Mag 1.5 supplemented with 4 gm yesterday was 2 gm, K 3.1 40 mEq liquid potassium, will recheck 09/01/2021 Potassium 3.4 supplemented with 20 mEq Powder, Magnesium 1.8 this AM, continue to monitor Potassium within normal limits (5) GERI (acute kidney injury): Code(s): N17.9 - Acute kidney failure, unspecified Status: Acute Assessment and Plan: Currently improved BUN 29, Cr 1.42, eCrCl 30.4, eGFR 52, Pt still on Levophed at this time 5 mcg/min. current fluid balance + 3790 ml 08/31/2021 Resolved Renal function test within normal limits (6) Diabetes 1.5, managed as type 2: Code(s): E13.9 - Other specified diabetes mellitus without complications Status: Acute Assessment and Plan: Glucose checks currently Q4H, IV Insulin drip DC'ed, glucose levels around 150-160s, alert enough to trial sips and chips, will adjust medications as needed. 08/31/2021 Diabetic diet, ACHS glucose checks, hypoglycemic protocol, SSI with decrea
[2021-09-05] MEDS: LOPERAMIDE HCL 2 MG CAPSULE PO ×2 (11:56→17:18)
[2021-09-05 12:59] LABS: Glucose Point of Care 214 mg/dl (65-105)
[2021-09-05] MEDS: SACCHAROMYCES BOULARDII 250 MG CAPSULE PO ×2 (13:27→17:20)
[2021-09-05 17:37] LABS: Glucose Point of Care 201 mg/dl (65-105)
[2021-09-05 20:52] LABS: Glucose Point of Care 193 mg/dl (65-105)
[2021-09-05] MEDS: traZODone HCL 25 MG TABLET PO (20:59)
[2021-09-05] MEDS: PANTOPRAZOLE SODIUM IV 40 MG VIAL IV PUSH (20:59)
--- NOTE | 2021-09-05 22:34 | PC.NURSE ---
Pt transferred to commode with 2 standby assist. Pt had soft, light brown stool and occult stool sample was taken. Pt then transferred back to bed with the call light within reach.
[2021-09-06] VITALS (14 sets, daily range): BP systolic 89–105; BP diastolic 64–73; PULSE 83–102; RESP 13–19; TEMP 36.9–37.2; O2SAT 94–98
[2021-09-06 00:11] LABS: Glucose Point of Care 90 mg/dl (65-105)
--- NOTE | 2021-09-06 02:16 | PC.NURSE ---
Pt rounding completed. Pt is sleeping on his right side with the call light within reach, room light on, and bed in lowest position.
[2021-09-06 06:10] LABS: Hematocrit 21.8 % (40.0-54.0); Mean Corpuscular HGB Conc 32.1 g/dL (32.0-36.0); Mean Corpuscular Hemoglobin 29.8 pg (27.0-31.0); Mean Corpuscular Volume 92.8 fL (78.0-102.0); Mean Platelet Volume 9.1 fl (8.7-11.0); Platelet Count Result 252 K/mm3 (150-420); Red Blood Count 2.35 M/mm3 (4.70-6.10); Red Cell Distribution Width 14.6 % (11.6-14.4); White Blood Count 11.2 K/mm3 (4.8-10.8)
[2021-09-06 06:15] LABS: Immature Reticulocyte Fraction 38.6 % (2.0-16.52); Reticulocyte Hemoglobin Conten 38.8 pg (28.0-35.0); Reticulocyte Percent 3.52 % (0.50-1.50); Reticulocytes Absolute 0.08 M/mm3 (0.02-0.1)
[2021-09-06 06:18] LABS: INR 1.1; Partial Thromboplastin Time 32.9 SEC (23.90-30.70); Prothrombin Time 11.3 Seconds (9.50-12.10)
[2021-09-06 06:20] LABS: Alanine Aminotransferase 40 U/L (16-63); Albumin Level 2.7 g/dL (3.4-5.0); Alkaline Phosphatase 440 U/L (46-116); Anion Gap 2 mmol/L (8-16); Aspartate Amino Transferase 63 U/L (15-37); Bilirubin,Total 0.4 mg/dL (0.00-1.00); Blood Urea Nitrogen 12 mg/dL (7-18); Calcium 8.2 mg/dL (8.5-10.1); Carbon Dioxide 30 mmol/L (21-32); Chloride 109 mmol/L (98-108); Estimated CRCL calculation 65 ml/min; Estimated Glomerular Filt Rate > 60; Glucose 84 mg/dL (70-99); Magnesium 1.5 mg/dL (1.8-2.4); Osmolality Calculated 290 mOsm/kg (285-295); Potassium 4.1 mmol/L (3.5-5.1); Sodium 141 mmol/L (136-145); Total Protein 5.1 g/dL (6.4-8.2)
[2021-09-06 06:44] LABS: Bilirubin Direct 0.1 mg/dL (0-0.2); Ferritin 556 ng/mL (26-388); Iron 19 ug/dL (65-175); Percent Iron Saturation 13 % (12-57); Thyroid Stimulating Hormone Reflex 6.09 u/IU/mL (0.36-3.74)
[2021-09-06 06:45] LABS: Free T4 Free Thyroxine Reflex 0.63 ng/dL (0.76-1.46)
--- NOTE | 2021-09-06 07:45 | PC.NURSE ---
phenylephrine drip decreased at this time to 30mcg/min
[2021-09-06 07:47] LABS: Glucose Point of Care 143 mg/dl (65-105)
[2021-09-06] MEDS: PANTOPRAZOLE SODIUM IV 40 MG VIAL IV PUSH ×2 (08:56→21:52)
[2021-09-06] MEDS: HYDROcodone/acetaminophen (*CRX) 10-325 MG TABLET 1 TAB PO (08:57)
[2021-09-06] MEDS: CALCIUM CARBONATE (OSCAL) 500 MG TABLET 250 MG PO ×3 (08:58→16:55)
[2021-09-06] MEDS: MAGNESIUM OXIDE 400 MG TABLET PO ×2 (08:58→16:56)
[2021-09-06] MEDS: APIXABAN 2.5 MG TABLET 5 MG PO ×2 (08:58→21:52)
[2021-09-06] MEDS: GABAPENTIN 400 MG CAPSULE PO ×3 (08:58→16:55)
[2021-09-06] MEDS: SACCHAROMYCES BOULARDII 250 MG CAPSULE PO ×3 (08:59→16:56)
[2021-09-06] MEDS: LOPERAMIDE HCL 2 MG CAPSULE PO (08:59)
--- NOTE | 2021-09-06 10:07 | WPDPN ---
Progress Note: A&P Assessment and Plan (1) Cardiogenic shock: Code(s): R57.0 - Cardiogenic shock <LORAINE Logan - Last Filed: 09/06/21 10:18> Status: Acute <LORAINE Logan - Last Filed: 09/06/21 10:18> Assessment and Plan: Pt was hypotensive with systolic of 60s and 80s, cool skin to touch, cutaneous pallor, altered level of consciousness requiring multiple IVF boluses followed by Levophed at 10mcg/min which has slowly been titrated down but not off at this time, last BP 119/83 (95) HR 66, 2L NC, Troponin were 16.9, 16.4, 17.4, Pt has no complaint of CP but does complain of middle back pain between shoulders. Pt is on wait list at [facility] in [place], [place] 08/30/2021 Levophed being weaned off currently 3 mcg/min, extremities still cool to touch, mottling improved since yesterday 08/31/2021 Levophed stopped last night and Phenylephrine started at 30 mcg/min and being titrated for MAP >65 mmHg 09/01/2021 Continue to titrate Phenylephrine for MAP > 65, May consider addition of Midodrine, Pt on wait list for ICU Map 68 blood pressure 86/60, phenylephrine 30 MCG titrating down Blood pressure 92/64 map 73 <LORAINE Logan - Last Filed: 09/06/21 10:18> (2) Hyperosmolar hyperglycemic state (HHS): Code(s): E11.00 - Type 2 diabetes mellitus with hyperosmolarity without nonketotic hyperglycemic-hyperosmolar coma (NKHHC); E11.65 - Type 2 diabetes mellitus with hyperglycemia <LORAINE Logan - Last Filed: 09/06/21 10:18> Status: Acute <LORAINE Logan - Last Filed: 09/06/21 10:18> Assessment and Plan: Pt had IV Insulin with D5 1/2NS which has corrected his glucose levels which were as high as > 500 mg/dL, now around 150-160s and insulin drip is off with 1/2 NS at 100 ml/h, Na has been corrected with last being 143 originally 150, Osmolality high was 338 and currently 303, Pt now more alert and responding more than Yes No. Will recheck BMP at 1500 hours. 08/30/2021 Osmolality 299 with glucose 150s-260, Pt not eating at this time, continue to monitor and will restart DM medications when eating 08/31/2021 Improved osmolality, glucose restarted Humalog Mix 75/25 home insulin but at 15 U BID vs home dose 20 U BID with SSI and ACHS glucose monitoring and hypoglycemic protocol in place. 09/01/2021 Will increase Humalog Mix 75/25 to home dose of 20 BID, Pt is ok to have snack at HS, continue to monitor, Osmolality resolved <HECTOR Logan-Nathaniel - Last Filed: 09/06/21 10:18> (3) Acidosis, lactic: Code(s): E87.2 - Acidosis <HECTOR Logan-Nathaniel - Last Filed: 09/06/21 10:18> Status: Acute <LORAINE Logan - Last Filed: 09/06/21 10:18> Assessment and Plan: High of 6.8, WBC 13.6, only site of infection is coccyx and hip area with stage 1 decub at coccyx about 4cm diameter and abrasions/skin tear at both hips about the size of a quarter, once renal function has improved and Levophed is weaned off will get CT chest/abd/pelvis w/ contrast, Ab coverage at this time is Vancomycin and Cefepime both renal dosed, Blood Cx Pending 08/30/2021 1.4, continue with Ab 09/01/2021 ... Resolved Antibiotics discontinued 7 days completed cefepime and vancomycin <HECTOR Logan-C - Last Filed: 09/06/21 10:18> (4) Hypokalemia: Code(s): E87.6 - Hypokalemia <LORAINE Logan - Last Filed: 09/06/21 10:18> Status: Acute <HECTOR Logan-Nathaniel - Last Filed: 09/06/21 10:18> Assessment and Plan: K low of 2 and has received total of 80 mEq IV K riders with last level 2.7 after 3rd K rider, will monitor with next lab at 1500 hours or so. 08/31/2021 Mag 1.5 supplemented with 4 gm yesterday was 2 gm, K 3.1 40 mEq liquid potassium, will recheck 09/01/2021 Potassium 3.4 supplemented with 20 mEq Powder, Magnesium 1.8 this AM, continue to monitor Potassium within normal limits <Wing R. Yoni
[2021-09-06 10:51] LABS: Occult Blood Negative (Negative)
[2021-09-06] MEDS: MAGNESIUM SULF 4 GM/WATER100ML 4 GM/100 ML BAG IVPB (10:59)
[2021-09-06 11:46] LABS: Glucose Point of Care 396 mg/dl (65-105)
[2021-09-06] MEDS: FERROUS SULFATE 324 MG TABLET PO ×2 (12:21→16:55)
[2021-09-06] MEDS: traMADol HCL (*CRX) 50 MG TABLET PO ×2 (12:25→21:52)
[2021-09-06 17:08] LABS: Glucose Point of Care 343 mg/dl (65-105)
[2021-09-06] MEDS: traZODone HCL 25 MG TABLET PO (21:52)
[2021-09-06 22:09] LABS: Glucose Point of Care 151 mg/dl (65-105)
--- NOTE | 2021-09-06 22:25 | PC.NURSE ---
At 20:46 pt notified this writer editor that he had an incontinent bm and needed cleaned. This writer editor along with Batool [email or web address] had cleaned the pt with hygiene wipes, sterile water, and gauze pads around areas that were reddened. The tube for the catheter was wiped clean with a new statlock applied since the other was covered with feces. The pt gown and bed linens were also removed and replaced. Pt cooperated with turning and was educated to notify the nursing staff if he felt like he was going to have a bm or if an incontinent bm had occurred. Shad verbalized understanding, but reinforcement should be encouraged. A new foam pad and barrier spray was applied to the pt's coccyx and is initialed/dated. Pt bed was then lowered to the lowest position for safety along with the call light placed within reach. Trash was removed/replaced along with the dirty linens bag being replaced. Pt complains of pain and states the [place] is not working for him and repeatedly brings up IVP morphine. Pt persisted showing signs of dependence and addictive tendencies. Pt brought up that in the past he was an alcoholic, and had used Dilaudid for pain in the past. Communication to the charge nurse occurred at this time discussing this finding.
--- NOTE | 2021-09-06 23:52 | PC.NURSE ---
Pt was brought midnight snack of turkey sandwich and salad with egg for protein to promote healing. Pt stated Tramadol helped his pain much more compared to the [place], but did not give a numbered pain score.
[2021-09-07] VITALS (19 sets, daily range): BP systolic 101–106; BP diastolic 63–77; PULSE 80–109; RESP 16–20; TEMP 36.3–36.9; O2SAT 95–97
--- NOTE | 2021-09-07 02:19 | PC.NURSE ---
Pt is sleeping on his left side with the room light dimmed and music playing. Call light is within reach and bed is in the lowest position.
[2021-09-07 05:14] LABS: Hemoglobin 7.2 g/dL (14.0-18.0); Mean Corpuscular HGB Conc 32.7 g/dL (32.0-36.0); Mean Corpuscular Hemoglobin 30.6 pg (27.0-31.0); Mean Corpuscular Volume 93.6 fL (78.0-102.0); Platelet Count Result 340 K/mm3 (150-420); Red Blood Count 2.35 M/mm3 (4.70-6.10); Red Cell Distribution Width 15.5 % (11.6-14.4); White Blood Count 14.2 K/mm3 (4.8-10.8)
[2021-09-07 05:30] LABS: Alanine Aminotransferase 39 U/L (16-63); Albumin Level 2.9 g/dL (3.4-5.0); Alkaline Phosphatase 442 U/L (46-116); Anion Gap 7 mmol/L (8-16); Aspartate Amino Transferase 52 U/L (15-37); Bilirubin,Total 0.4 mg/dL (0.00-1.00); Blood Urea Nitrogen 13 mg/dL (7-18); Calcium 8.5 mg/dL (8.5-10.1); Carbon Dioxide 27 mmol/L (21-32); Chloride 105 mmol/L (98-108); Estimated CRCL calculation 64 ml/min; Estimated Glomerular Filt Rate > 60; Magnesium 2.1 mg/dL (1.8-2.4); Osmolality Calculated 285 mOsm/kg (285-295); Potassium 4.4 mmol/L (3.5-5.1); Sodium 139 mmol/L (136-145); Total Protein 5.9 g/dL (6.4-8.2)
--- NOTE | 2021-09-07 05:30 | PC.NURSE ---
lab called to report a critical glucose value of 39. Dr. Santana notified and new orders received and noted.
[2021-09-07 05:32] LABS: Glucose 39 mg/dL (70-99)
[2021-09-07] MEDS: DEXTROSE 50% 25 GM/50 ML SYRINGE IV PUSH (05:56)
[2021-09-07] MEDS: LEVOTHYROXINE SODIUM 75 MCG TABLET PO (05:57)
[2021-09-07] MEDS: traMADol HCL (*CRX) 50 MG TABLET PO ×2 (05:57→13:21)
[2021-09-07 06:53] LABS: Glucose Point of Care 150 mg/dl (65-105)
[2021-09-07] MEDS: SACCHAROMYCES BOULARDII 250 MG CAPSULE PO ×3 (09:17→18:13)
[2021-09-07] MEDS: FERROUS SULFATE 324 MG TABLET PO ×3 (09:17→18:14)
[2021-09-07] MEDS: PANTOPRAZOLE SODIUM IV 40 MG VIAL IV PUSH ×2 (09:17→22:30)
[2021-09-07] MEDS: MAGNESIUM OXIDE 400 MG TABLET PO ×2 (09:17→18:14)
[2021-09-07] MEDS: CALCIUM CARBONATE (OSCAL) 500 MG TABLET 250 MG PO ×3 (09:17→18:14)
[2021-09-07] MEDS: GABAPENTIN 400 MG CAPSULE PO ×3 (09:17→18:14)
--- NOTE | 2021-09-07 10:33 | WPDPN ---
Progress Note: A&P Assessment and Plan (1) Cardiogenic shock: Code(s): R57.0 - Cardiogenic shock <LORAINE Logan - Last Filed: 09/07/21 10:48> Status: Acute <LORAINE Logan - Last Filed: 09/07/21 10:48> Assessment and Plan: Pt was hypotensive with systolic of 60s and 80s, cool skin to touch, cutaneous pallor, altered level of consciousness requiring multiple IVF boluses followed by Levophed at 10mcg/min which has slowly been titrated down but not off at this time, last BP 119/83 (95) HR 66, 2L NC, Troponin were 16.9, 16.4, 17.4, Pt has no complaint of CP but does complain of middle back pain between shoulders. Pt is on wait list at [facility] in [place], [place] 08/30/2021 Levophed being weaned off currently 3 mcg/min, extremities still cool to touch, mottling improved since yesterday 08/31/2021 Levophed stopped last night and Phenylephrine started at 30 mcg/min and being titrated for MAP >65 mmHg 09/01/2021 Continue to titrate Phenylephrine for MAP > 65, May consider addition of Midodrine, Pt on wait list for ICU Map 68 blood pressure 86/60, phenylephrine 30 MCG titrating down Blood pressure 101/72map 81 phenylephrine at 20 mcg <LORAINE Logan - Last Filed: 09/07/21 10:48> (2) Hyperosmolar hyperglycemic state (HHS): Code(s): E11.00 - Type 2 diabetes mellitus with hyperosmolarity without nonketotic hyperglycemic-hyperosmolar coma (NKHHC); E11.65 - Type 2 diabetes mellitus with hyperglycemia <HECTOR Logan-Nathaniel - Last Filed: 09/07/21 10:48> Status: Acute <LORAINE Logan - Last Filed: 09/07/21 10:48> Assessment and Plan: Pt had IV Insulin with D5 1/2NS which has corrected his glucose levels which were as high as > 500 mg/dL, now around 150-160s and insulin drip is off with 1/2 NS at 100 ml/h, Na has been corrected with last being 143 originally 150, Osmolality high was 338 and currently 303, Pt now more alert and responding more than Yes No. Will recheck BMP at 1500 hours. 08/30/2021 Osmolality 299 with glucose 150s-260, Pt not eating at this time, continue to monitor and will restart DM medications when eating 08/31/2021 Improved osmolality, glucose restarted Humalog Mix 75/25 home insulin but at 15 U BID vs home dose 20 U BID with SSI and ACHS glucose monitoring and hypoglycemic protocol in place. 09/01/2021 Will increase Humalog Mix 75/25 to home dose of 20 BID, Pt is ok to have snack at HS, continue to monitor, Osmolality resolved patient dropped in the 30's usually 200-300 patient notes that he did not eat his snacks may which caused his blood sugars to drop <LORAINE Logan - Last Filed: 09/07/21 10:48> (3) Acidosis, lactic: Code(s): E87.2 - Acidosis <LORAINE Logan - Last Filed: 09/07/21 10:48> Status: Acute <LORAINE Logan - Last Filed: 09/07/21 10:48> Assessment and Plan: High of 6.8, WBC 13.6, only site of infection is coccyx and hip area with stage 1 decub at coccyx about 4cm diameter and abrasions/skin tear at both hips about the size of a quarter, once renal function has improved and Levophed is weaned off will get CT chest/abd/pelvis w/ contrast, Ab coverage at this time is Vancomycin and Cefepime both renal dosed, Blood Cx Pending 08/30/2021 1.4, continue with Ab 09/01/2021 ... Resolved Antibiotics discontinued 7 days completed cefepime and vancomycin <LORAINE Logan - Last Filed: 09/07/21 10:48> (4) Hypokalemia: Code(s): E87.6 - Hypokalemia <LORAINE Logan - Last Filed: 09/07/21 10:48> Status: Acute <LORAINE Logan - Last Filed: 09/07/21 10:48> Assessment and Plan: K low of 2 and has received total of 80 mEq IV K riders with last level 2.7 after 3rd K rider, will monitor with next lab at 1500 hours or so. 08/31/2021 Mag 1.5 supplemented with 4 gm yesterday was 2 gm, K 3.1 40 mEq liquid potassium, will re
[2021-09-07 11:51] LABS: Glucose Point of Care 291 mg/dl (65-105)
[2021-09-07] MEDS: MORPHINE SULFATE ORAL CONC SOL (*CRX) 10 MG/0.5 ML SYRINGE 5 MG PO (18:13)
[2021-09-07] MEDS: LOPERAMIDE HCL 2 MG CAPSULE PO ×2 (18:14→22:30)
[2021-09-07 18:52] LABS: Glucose Point of Care 365 mg/dl (65-105)
[2021-09-07 22:18] LABS: Glucose Point of Care 436 mg/dl (65-105)
[2021-09-07] MEDS: traZODone HCL 25 MG TABLET PO (22:30)
[2021-09-08] VITALS (23 sets, daily range): BP systolic 86–123; BP diastolic 54–78; PULSE 78–126; RESP 16–21; TEMP 36.3–37.2; O2SAT 91–98
--- NOTE | 2021-09-08 01:33 | PC.NURSE ---
Pt had an incontinent bm in bed. Then transferred with 2 assist to [facility]. Stool was soft, non-formed and brown. Amount in depend was quite large.
--- NOTE | 2021-09-08 05:26 | PC.NURSE ---
Pt's Phenylephrine drip decreased to 5 mcg/min at 04:33
[2021-09-08 05:49] LABS: Hematocrit 21.1 % (40.0-54.0); Mean Corpuscular HGB Conc 31.3 g/dL (32.0-36.0); Mean Corpuscular Hemoglobin 30.1 pg (27.0-31.0); Mean Corpuscular Volume 96.3 fL (78.0-102.0); Mean Platelet Volume 8.9 fl (8.7-11.0); Platelet Count Result 338 K/mm3 (150-420); Red Blood Count 2.19 M/mm3 (4.70-6.10); White Blood Count 12.4 K/mm3 (4.8-10.8)
[2021-09-08 06:01] LABS: Hemoglobin 6.6 g/dL (14.0-18.0)
--- NOTE | 2021-09-08 06:05 | PC.NURSE ---
Lab called to report a critical H&H of 6.6/21.1. Dr. Mensah notified and orders were received and noted.
[2021-09-08 06:21] LABS: Alanine Aminotransferase 31 U/L (16-63); Albumin Level 2.6 g/dL (3.4-5.0); Alkaline Phosphatase 385 U/L (46-116); Anion Gap 10 mmol/L (8-16); Aspartate Amino Transferase 34 U/L (15-37); Bilirubin,Total 0.3 mg/dL (0.00-1.00); Blood Urea Nitrogen 15 mg/dL (7-18); Calcium 8.1 mg/dL (8.5-10.1); Carbon Dioxide 24 mmol/L (21-32); Chloride 107 mmol/L (98-108); Estimated CRCL calculation 66 ml/min; Estimated Glomerular Filt Rate > 60; Glucose 119 mg/dL (70-99); Magnesium 1.8 mg/dL (1.8-2.4); Osmolality Calculated 293 mOsm/kg (285-295); Potassium 4.1 mmol/L (3.5-5.1); Sodium 141 mmol/L (136-145); Total Protein 5.4 g/dL (6.4-8.2)
[2021-09-08] MEDS: LEVOTHYROXINE SODIUM 75 MCG TABLET PO (06:34)
[2021-09-08] MEDS: traMADol HCL (*CRX) 50 MG TABLET PO ×3 (06:34→18:45)
--- NOTE | 2021-09-08 08:45 | PC.NURSE ---
patient in chair, not responding appropriately, glucose 47, hospitalist notified, 1 am d50 given IV, noted in 10 min to have sugar 336 and responding appropriately, eating breakfast at this time
[2021-09-08 08:52] LABS: Glucose Point of Care 47 mg/dl (65-105)
[2021-09-08 08:52] LABS: Glucose Point of Care 336 mg/dl (65-105)
[2021-09-08] MEDS: GABAPENTIN 400 MG CAPSULE PO ×3 (09:00→16:59)
[2021-09-08] MEDS: PANTOPRAZOLE SODIUM IV 40 MG VIAL IV PUSH ×2 (09:00→21:03)
[2021-09-08] MEDS: SODIUM CHLORIDE 0.9% IV 250 ML 30 ML IV CONT (09:00)
[2021-09-08] MEDS: MORPHINE SULFATE ORAL CONC SOL (*CRX) 10 MG/0.5 ML SYRINGE 5 MG PO (10:35)
[2021-09-08] MEDS: CALCIUM CARBONATE (OSCAL) 500 MG TABLET 250 MG PO ×3 (10:39→16:59)
[2021-09-08] MEDS: MAGNESIUM OXIDE 400 MG TABLET PO ×2 (10:39→16:59)
[2021-09-08] MEDS: FERROUS SULFATE 324 MG TABLET PO ×3 (10:40→16:59)
[2021-09-08] MEDS: SACCHAROMYCES BOULARDII 250 MG CAPSULE PO ×3 (10:41→17:00)
[2021-09-08] MEDS: DEXTROSE 50% 25 GM/50 ML SYRINGE IV PUSH ×2 (10:41→17:23)
--- NOTE | 2021-09-08 11:24 | WPDPN ---
Progress Note: A&P Assessment and Plan (1) Cardiogenic shock: Code(s): R57.0 - Cardiogenic shock <LORAINE Logan - Last Filed: 09/08/21 11:37> Status: Acute <LORAINE Logan - Last Filed: 09/08/21 11:37> Assessment and Plan: Pt was hypotensive with systolic of 60s and 80s, cool skin to touch, cutaneous pallor, altered level of consciousness requiring multiple IVF boluses followed by Levophed at 10mcg/min which has slowly been titrated down but not off at this time, last BP 119/83 (95) HR 66, 2L NC, Troponin were 16.9, 16.4, 17.4, Pt has no complaint of CP but does complain of middle back pain between shoulders. Pt is on wait list at [facility] in [place], [place] 08/30/2021 Levophed being weaned off currently 3 mcg/min, extremities still cool to touch, mottling improved since yesterday 08/31/2021 Levophed stopped last night and Phenylephrine started at 30 mcg/min and being titrated for MAP >65 mmHg 09/01/2021 Continue to titrate Phenylephrine for MAP > 65, May consider addition of Midodrine, Pt on wait list for ICU BP 98/65(76) phenylephrine 5 mcg <LORAINE Logan - Last Filed: 09/08/21 11:37> (2) Hyperosmolar hyperglycemic state (HHS): Code(s): E11.00 - Type 2 diabetes mellitus with hyperosmolarity without nonketotic hyperglycemic-hyperosmolar coma (NKHHC); E11.65 - Type 2 diabetes mellitus with hyperglycemia <LORAINE Logan - Last Filed: 09/08/21 11:37> Status: Acute <LORAINE Logan - Last Filed: 09/08/21 11:37> Assessment and Plan: Pt had IV Insulin with D5 1/2NS which has corrected his glucose levels which were as high as > 500 mg/dL, now around 150-160s and insulin drip is off with 1/2 NS at 100 ml/h, Na has been corrected with last being 143 originally 150, Osmolality high was 338 and currently 303, Pt now more alert and responding more than Yes No. Will recheck BMP at 1500 hours. 08/30/2021 Osmolality 299 with glucose 150s-260, Pt not eating at this time, continue to monitor and will restart DM medications when eating 08/31/2021 Improved osmolality, glucose restarted Humalog Mix 75/25 home insulin but at 15 U BID vs home dose 20 U BID with SSI and ACHS glucose monitoring and hypoglycemic protocol in place. 09/01/2021 Will increase Humalog Mix 75/25 to home dose of 20 BID, Pt is ok to have snack at HS, continue to monitor, Osmolality resolved patient dropped in the 40 s x2, lispro 75/25 decreased form 35>15 units bid Hypoglycemic episode possibly due to change in diet <LORAINE Logan - Last Filed: 09/08/21 11:37> (3) Acidosis, lactic: Code(s): E87.2 - Acidosis <LORAINE Logan - Last Filed: 09/08/21 11:37> Status: Acute <LORAINE Logan - Last Filed: 09/08/21 11:37> Assessment and Plan: High of 6.8, WBC 13.6, only site of infection is coccyx and hip area with stage 1 decub at coccyx about 4cm diameter and abrasions/skin tear at both hips about the size of a quarter, once renal function has improved and Levophed is weaned off will get CT chest/abd/pelvis w/ contrast, Ab coverage at this time is Vancomycin and Cefepime both renal dosed, Blood Cx Pending 08/30/2021 1.4, continue with Ab 09/01/2021 ... Resolved Antibiotics discontinued 7 days completed cefepime and vancomycin <LORAINE Logan - Last Filed: 09/08/21 11:37> (4) Hypokalemia: Code(s): E87.6 - Hypokalemia <LORAINE Logan - Last Filed: 09/08/21 11:37> Status: Acute <LORAINE Logan - Last Filed: 09/08/21 11:37> Assessment and Plan: K low of 2 and has received total of 80 mEq IV K riders with last level 2.7 after 3rd K rider, will monitor with next lab at 1500 hours or so. 08/31/2021 Mag 1.5 supplemented with 4 gm yesterday was 2 gm, K 3.1 40 mEq liquid potassium, will recheck 09/01/2021 Potassium 3.4 supplemented with 20 mEq Powder, Magnesium 1.8 this AM,
[2021-09-08 12:01] LABS: Glucose Point of Care 96 mg/dl (65-105)
[2021-09-08 12:33] LABS: Hematocrit 26.6 % (40.0-54.0); Hemoglobin 8.4 g/dL (14.0-18.0)
--- NOTE | 2021-09-08 12:50 | PC.NURSE ---
Phenylphrine drip stopped at this time, will assess vitals in 30 min
--- NOTE | 2021-09-08 16:33 | PC.NURSE ---
Bedside FSBS 26. Pt awake and alert. 4oz orange juice given. Will re-check in 20min. Call to lab to request verification of low result. Charge nurse aware.
[2021-09-08 16:34] LABS: Glucose Point of Care < 33 mg/dl (65-105)
--- NOTE | 2021-09-08 17:05 | PC.NURSE ---
PER BEDSIDE FSBS NOW - 46. 4OZ PO JUICE GIVEN.
[2021-09-08 17:17] LABS: Glucose 23 mg/dL (70-99)
--- NOTE | 2021-09-08 17:23 | PC.NURSE ---
PER LAB, GLUCOSE 23. GLUCAGON ADMINISTERED ORDERED.
--- NOTE | 2021-09-08 17:51 | PC.NURSE ---
BEDSIDE FSBS NOW - 191. PT ATE ALL OF SUPPER.
[2021-09-08 17:53] LABS: Glucose Point of Care 191 mg/dl (65-105)
[2021-09-08 17:53] LABS: Glucose Point of Care 46 mg/dl (65-105)
--- NOTE | 2021-09-08 18:15 | PC.NURSE ---
MEPILEX DRESSING TO COCCYX CHANGED D/T SOILING FROM INCONTINENCE.
[2021-09-08] MEDS: LOPERAMIDE HCL 2 MG CAPSULE PO ×2 (18:48→21:03)
[2021-09-08] MEDS: ONDANSETRON INJ 4 MG/2 ML VIAL IV PUSH (19:17)
--- NOTE | 2021-09-08 19:20 | PC.NURSE ---
Patient had large chunky emesis in trash can. PRN Zofran given.
[2021-09-08 20:42] LABS: Hematocrit 25.9 % (40.0-54.0); Hemoglobin 8.3 g/dL (14.0-18.0)
[2021-09-08] MEDS: traZODone HCL 25 MG TABLET PO (21:03)
[2021-09-08 21:33] LABS: Glucose Point of Care 126 mg/dl (65-105)
--- NOTE | 2021-09-08 22:10 | PC.NURSE ---
Patient denies nausea/vomiting and now tells nurse he just had to vomit because he felt so full, he needed to empty his stomach some, saying he was just so gassy .
[2021-09-09] VITALS (16 sets, daily range): BP systolic 92–118; BP diastolic 54–84; PULSE 85–98; RESP 14–20; TEMP 36.3–37; O2SAT 94–99
[2021-09-09 00:04] LABS: Glucose Point of Care 149 mg/dl (65-105)
--- NOTE | 2021-09-09 02:02 | PC.NURSE ---
[facility] called for update and to see if patient still needs transferred. No bed available @ this time.
[2021-09-09 03:04] LABS: Glucose Point of Care 96 mg/dl (65-105)
[2021-09-09 05:27] LABS: Hematocrit 26.3 % (40.0-54.0); Hemoglobin 8.4 g/dL (14.0-18.0); Mean Corpuscular HGB Conc 31.9 g/dL (32.0-36.0); Mean Corpuscular Hemoglobin 29.9 pg (27.0-31.0); Mean Corpuscular Volume 93.6 fL (78.0-102.0); Mean Platelet Volume 8.4 fl (8.7-11.0); Platelet Count Result 339 K/mm3 (150-420); Red Blood Count 2.81 M/mm3 (4.70-6.10); Red Cell Distribution Width 15.5 % (11.6-14.4); White Blood Count 9.7 K/mm3 (4.8-10.8)
[2021-09-09 05:53] LABS: Alanine Aminotransferase 27 U/L (16-63); Albumin Level 2.5 g/dL (3.4-5.0); Alkaline Phosphatase 357 U/L (46-116); Anion Gap 9 mmol/L (8-16); Aspartate Amino Transferase 29 U/L (15-37); Bilirubin,Total 0.3 mg/dL (0.00-1.00); Blood Urea Nitrogen 13 mg/dL (7-18); Calcium 8.3 mg/dL (8.5-10.1); Carbon Dioxide 25 mmol/L (21-32); Chloride 108 mmol/L (98-108); Estimated CRCL calculation 74 ml/min; Estimated Glomerular Filt Rate > 60; Glucose 110 mg/dL (70-99); Magnesium 1.8 mg/dL (1.8-2.4); Osmolality Calculated 295 mOsm/kg (285-295); Potassium 3.9 mmol/L (3.5-5.1); Sodium 142 mmol/L (136-145); Total Protein 5.5 g/dL (6.4-8.2)
--- NOTE | 2021-09-09 09:37 | PM.IMPN ---
Progress Note: A&P Assessment and Plan (1) Cardiogenic shock: Code(s): R57.0 - Cardiogenic shock <Alen Barney APPRENTICE INSTRUMENT TECHNICIAN-C - Last Filed: 09/09/21 13:26> Status: Acute <Alen Barney APPRENTICE INSTRUMENT TECHNICIAN-C - Last Filed: 09/09/21 13:26> Assessment and Plan: Phenylephrine is off at this time with VS holding steady. Current MAP is 94, will continue to monitor VS and make any adjustments as needed. Pt would still benefit from a step down unit vs ICU given his pressor is off. <Alen BarneyAINSLEY-C - Last Filed: 09/09/21 13:26> (2) Bladder outlet obstruction: Code(s): N32.0 - Bladder-neck obstruction <Alen BarneyBRITTANYN-C - Last Filed: 09/09/21 13:26> Status: Acute <Alen BarneyAINSLEY-C - Last Filed: 09/09/21 13:26> Assessment and Plan: Will restart Ellison Catheter. Pt will need urology follow up or consultation in the future. <Alen Barney APPRENTICE INSTRUMENT TECHNICIAN-C - Last Filed: 09/09/21 13:26> (3) Gastric distention: Code(s): K31.89 - Other diseases of stomach and duodenum <Alen Barney APPRENTICE INSTRUMENT TECHNICIAN-C - Last Filed: 09/09/21 13:26> Status: Acute <Alen Barney APPRENTICE INSTRUMENT TECHNICIAN-C - Last Filed: 09/09/21 13:26> Assessment and Plan: MRI report showing gastric distention. Started Reglan. Pt is diabetic. May need to decrease intake, No pain or complaints of nausea at this time. <Alen BarneyAINSLEY-C - Last Filed: 09/09/21 13:26> (4) Hyperosmolar hyperglycemic state (HHS): Code(s): E11.00 - Type 2 diabetes mellitus with hyperosmolarity without nonketotic hyperglycemic-hyperosmolar coma (NKHHC); E11.65 - Type 2 diabetes mellitus with hyperglycemia <Alen BarneyAINSLEY-C - Last Filed: 09/09/21 13:26> Status: Acute <Alen Barney APPRENTICE INSTRUMENT TECHNICIAN-C - Last Filed: 09/09/21 13:26> Assessment and Plan: Resolved, will continue to monitor, Glucose control is good <Alen Barney APPRENTICE INSTRUMENT TECHNICIAN-C - Last Filed: 09/09/21 13:26> (5) Acidosis, lactic: Code(s): E87.2 - Acidosis <Alen Barney APPRENTICE INSTRUMENT TECHNICIAN-C - Last Filed: 09/09/21 13:26> Status: Acute <Alen Barney APPRENTICE INSTRUMENT TECHNICIAN-C - Last Filed: 09/09/21 13:26> Assessment and Plan: Resolved <Alne Barney APPRENTICE INSTRUMENT TECHNICIAN-C - Last Filed: 09/09/21 13:26> (6) Hypokalemia: Code(s): E87.6 - Hypokalemia <Alen Barney APPRENTICE INSTRUMENT TECHNICIAN-C - Last Filed: 09/09/21 13:26> Status: Acute <Alen Barney APPRENTICE INSTRUMENT TECHNICIAN-C - Last Filed: 09/09/21 13:26> Assessment and Plan: Within normal limits today, will continue to monitor <Alen Barney APPRENTICE INSTRUMENT TECHNICIAN-C - Last Filed: 09/09/21 13:26> (7) GERI (acute kidney injury): Code(s): N17.9 - Acute kidney failure, unspecified <Alen Barney APPRENTICE INSTRUMENT TECHNICIAN-C - Last Filed: 09/09/21 13:26> Status: Acute <Alen Barney APPRENTICE INSTRUMENT TECHNICIAN-C - Last Filed: 09/09/21 13:26> Assessment and Plan: Resolved, will continue to monitor <Alen Barney APPRENTICE INSTRUMENT TECHNICIAN-C - Last Filed: 09/09/21 13:26> (8) Diabetes 1.5, managed as type 2: Code(s): E13.9 - Other specified diabetes mellitus without complications <Alen Barney APPRENTICE INSTRUMENT TECHNICIAN-C - Last Filed: 09/09/21 13:26> Status: Acute <Alen Barney APPRENTICE INSTRUMENT TECHNICIAN-C - Last Filed: 09/09/21 13:26> Assessment and Plan: Continue to monitor, good glucose control, continue diabetic diet <Alen Barney APPRENTICE INSTRUMENT TECHNICIAN-C - Last Filed: 09/09/21 13:26> (9) Decubitus skin ulcer: Code(s): L89.90 - Pressure ulcer of unspecified site, unspecified stage <ALEKSANDRA Petty - Last Filed: 09/09/21 13:26> Status: Acute <ALEKSANDRA Petty - Last Filed: 09/09/21 13:26> Assessment and Plan: Consult to Wound Care for Coccyx and Hip wounds: Geremias Krause office: [phone] Wound care with recommendations to continue with Mepilex <ALEKSANDRA Petty - Last Filed: 09/09/21 13:26> (10) Malnutrition: Code(s): E46 - Unspecified protein-calorie malnut
[2021-09-09] MEDS: traMADol HCL (*CRX) 50 MG TABLET PO ×3 (09:48→23:23)
[2021-09-09] MEDS: SACCHAROMYCES BOULARDII 250 MG CAPSULE PO ×3 (09:50→17:16)
[2021-09-09] MEDS: PANTOPRAZOLE SODIUM IV 40 MG VIAL IV PUSH ×2 (09:50→21:38)
[2021-09-09] MEDS: GABAPENTIN 400 MG CAPSULE PO ×3 (09:50→17:14)
[2021-09-09] MEDS: MAGNESIUM OXIDE 400 MG TABLET PO ×2 (09:51→17:15)
[2021-09-09] MEDS: CALCIUM CARBONATE (OSCAL) 500 MG TABLET 250 MG PO ×3 (09:51→17:15)
[2021-09-09] MEDS: FERROUS SULFATE 324 MG TABLET PO ×3 (09:51→17:15)
[2021-09-09 10:21] LABS: Glucose Point of Care 164 mg/dl (65-105)
[2021-09-09] MEDS: LOPERAMIDE HCL 2 MG CAPSULE PO ×4 (11:30→23:24)
[2021-09-09 11:39] LABS: Glucose Point of Care 300 mg/dl (65-105)
[2021-09-09] MEDS: METOCLOPRAMIDE HCL INJ 10 MG/2 ML VIAL IV PUSH ×2 (13:49→21:38)
--- NOTE | 2021-09-09 16:02 | PC.NURSE ---
patient c/o of abd feeling really full after every meal that he could blow. claims he has been eating everything and extras d/t trying to gain wt fast. explained that is not working. claims he has been drinking all the apple juice to help him have a stool. had family bring 3 bags of food into him. ranges from chips, sugar chocolate, hot buffalo tuna packs, to canned beef stew. [employer] talks to him about this.
[2021-09-09] MEDS: TAMSULOSIN HCL 0.4 MG CAPSULE PO (17:14)
[2021-09-09 17:26] LABS: Glucose Point of Care 354 mg/dl (65-105)
[2021-09-09 21:28] LABS: Haptoglobin 133 mg/dL (43-212); Transferrin 85 mg/dL (188-341)
[2021-09-09] MEDS: traZODone HCL 25 MG TABLET PO (21:37)
[2021-09-09 21:55] LABS: Glucose Point of Care 271 mg/dl (65-105)
--- NOTE | 2021-09-10 00:34 | PC.NURSE ---
Mepilex dressing changed to coccyx due to soiling.
[2021-09-10 04:00] VITALS: BP 94/54; PULSE 83; RESP 16; TEMP 36.8; O2SAT 94
[2021-09-10 05:12] LABS: Basophils Absolute Auto 0.06 K/mm3 (0.00-0.10); Basophils Percent Auto 0.8 % (0.0-1.0); Eosinophils Absolute Auto 0.11 K/mm3 (0.02-0.50); Eosinophils Percent Auto 1.4 % (1.0-6.0); Hematocrit 23.9 % (40.0-54.0); Hemoglobin 7.6 g/dL (14.0-18.0); Immature Granulocyte Absolute 0.04 K/mm3 (0.00-0.00); Immature Granulocyte Percent A 0.5 % (0.0-0.0); Lymphocytes Absolute Auto 1.92 K/mm3 (1.10-4.50); Lymphocytes Percent Auto 24.6 % (18.0-42.0); Mean Corpuscular HGB Conc 31.8 g/dL (32.0-36.0); Mean Corpuscular Hemoglobin 29.8 pg (27.0-31.0); Mean Corpuscular Volume 93.7 fL (78.0-102.0); Mean Platelet Volume 8.3 fl (8.7-11.0); Monocytes Absolute Auto 0.49 K/mm3 (0.10-0.90); Monocytes Percent Auto 6.3 % (2.0-11.0); Neutrophils Absolute Auto 5.2 K/mm3 (1.7-7.2); Neutrophils Percent Auto 66.4 % (50.0-70.0); Platelet Count Result 290 K/mm3 (150-420); Red Blood Count 2.55 M/mm3 (4.70-6.10); Red Cell Distribution Width 15.7 % (11.6-14.4); White Blood Count 7.8 K/mm3 (4.8-10.8)
[2021-09-10 05:29] LABS: Alanine Aminotransferase 27 U/L (16-63); Albumin Level 2.3 g/dL (3.4-5.0); Alkaline Phosphatase 326 U/L (46-116); Anion Gap 7 mmol/L (8-16); Aspartate Amino Transferase 24 U/L (15-37); Bilirubin,Total 0.3 mg/dL (0.00-1.00); Blood Urea Nitrogen 11 mg/dL (7-18); Calcium 7.8 mg/dL (8.5-10.1); Carbon Dioxide 26 mmol/L (21-32); Chloride 107 mmol/L (98-108); Estimated CRCL calculation 72 ml/min; Estimated Glomerular Filt Rate > 60; Glucose 188 mg/dL (70-99); Magnesium 1.7 mg/dL (1.8-2.4); Osmolality Calculated 294 mOsm/kg (285-295); Potassium 4.4 mmol/L (3.5-5.1); Sodium 140 mmol/L (136-145)
[2021-09-10] MEDS: LOPERAMIDE HCL 2 MG CAPSULE PO ×3 (06:09→13:23)
[2021-09-10] MEDS: METOCLOPRAMIDE HCL INJ 10 MG/2 ML VIAL IV PUSH ×3 (06:09→21:57)
[2021-09-10] MEDS: LEVOTHYROXINE SODIUM 75 MCG TABLET PO (06:09)
[2021-09-10] MEDS: traMADol HCL (*CRX) 50 MG TABLET PO ×3 (06:09→19:39)
[2021-09-10 08:00] VITALS: BP 96/62; PULSE 96; RESP 18; TEMP 36.6; O2SAT 94
[2021-09-10 08:09] LABS: Glucose Point of Care 111 mg/dl (65-105)
[2021-09-10] MEDS: CALCIUM CARBONATE (OSCAL) 500 MG TABLET 250 MG PO ×3 (08:56→17:29)
[2021-09-10] MEDS: GABAPENTIN 400 MG CAPSULE PO ×3 (08:56→17:29)
[2021-09-10] MEDS: MAGNESIUM SULF 2 GM/WATER 50ML 2 GM/50 ML BAG IVPB (08:56)
[2021-09-10] MEDS: TAMSULOSIN HCL 0.4 MG CAPSULE PO (08:56)
[2021-09-10] MEDS: FERROUS SULFATE 324 MG TABLET PO ×3 (08:57→17:29)
[2021-09-10] MEDS: MAGNESIUM OXIDE 400 MG TABLET PO ×2 (08:57→17:29)
[2021-09-10] MEDS: PANTOPRAZOLE SODIUM IV 40 MG VIAL IV PUSH ×2 (08:58→21:06)
[2021-09-10] MEDS: SACCHAROMYCES BOULARDII 250 MG CAPSULE PO ×3 (08:58→17:29)
[2021-09-10 10:01] LABS: Appearance Urine Sl Cloudy (Clear); Bilirubin Urine Negative (Negative); Color Urine Light Yellow (Yellow); Glucose Urine UA Negative (Negative); Ketones Urine Negative (Negative); Leukocyte Esterase Ur 1+ (Negative); Nitrate Urine Negative (Negative); Protein Urine 1+ (Negative); Specific Grav Ur 1.025 (1.010-1.020); Urobilinogen Urine 0.2 mg/dL (0.2-1.0); pH Urine 5.5 (5.0-8.0)
[2021-09-10 10:10] LABS: Add Urine Microscopic? YES; Blood Urine Trace-Intact (Negative); RBC Urine 0-2 /hpf (0-2)
[2021-09-10 10:11] LABS: Bacteria Urine Trace /hpf; Budding Yeast Urine Present /hpf; WBC Urine 16-20 /hpf (0-3)
[2021-09-10 11:54] LABS: Glucose Point of Care 101 mg/dl (65-105)
[2021-09-10 12:00] VITALS: BP 99/71; PULSE 86; PULSE 92; RESP 20; TEMP 36.6; O2SAT 93
--- NOTE | 2021-09-10 12:25 | PM.IMPN ---
Progress Note: A&P Assessment and Plan (1) Anemia: Code(s): D64.9 - Anemia, unspecified <Alen Russell ALEKSANDRA Barney - Last Filed: 09/10/21 13:27> Status: Acute <Alen AlbrechtALEKSANDRA swenson - Last Filed: 09/10/21 13:27> Assessment and Plan: 09/10/2021 Pt had a transfusion on 09/08/21 for Hgb of 6.6, highest Hgb after was 8.4, now down to 7.6, will continue to monitor and will transfuse needed, no active bleeding noticed, UA showed trace blood which could be from Ellison Cath placement the evening prior, Stool negative <Alen ShookALEKSANDRA Mcgee - Last Filed: 09/10/21 13:27> (2) Cardiogenic shock: Code(s): R57.0 - Cardiogenic shock <Alen ShookALEKSANDRA Mcgee - Last Filed: 09/10/21 13:27> Status: Acute <Alen Russell ALEKSANDRA Barney - Last Filed: 09/10/21 13:27> Assessment and Plan: Phenylephrine is off at this time with VS holding steady. Current MAP is 94, will continue to monitor VS and make any adjustments as needed. Pt would still benefit from a step down unit vs ICU given his pressor is off. 09/10/2021 MAP has been 67 to 93 over the last 24+ hours, Phenylephrine remains off, will DC this at this time. BP maintained after starting Flomax and placing Ellison Cath with 2 Liters initial urinary output with additional 1500 ml for following output. Pt remains on Wait List for [facility] <Alen ShookALEKSANDRA Mcgee - Last Filed: 09/10/21 13:27> (3) Bladder outlet obstruction: Code(s): N32.0 - Bladder-neck obstruction <Alen BooneALEKSANDRA Mcgee - Last Filed: 09/10/21 13:27> Status: Acute <Alen ShookALEKSANDRA Mcgee - Last Filed: 09/10/21 13:27> Assessment and Plan: Will restart Ellison Catheter. Pt will need urology follow up or consultation in the future. 09/10/2021 Started Flomax yesterday evening, 2,000 ml urine output after Ellison Cath placed with additional 1500 ml for the following reading. WBC remain WNL EXAMINATION: MR chest wo/w con, MR abdomen wo/w con FINDINGS: Chest: Interval increase in size of a small right and moderate left posterior layering pleural effusions. Partial collapse of the left lower lobe and additional severe dependent atelectasis in the right lower lobe. Persistent mild curvilinear discoid atelectasis/scarring at the lingula and right middle lobe. Heart size is normal. No pericardial effusion. Mediastinal edema. Thoracic aorta is normal in caliber with no evident dissection. Some residual pulmonary emboli suggested in the pulmonary arteries of the right lower lobe however sensitivity and specificity are markedly more limited with MRI than CT No pathologically enlarged thoracic lymphadenopathy. Bone marrow signal is unremarkable. Abdomen: Marked distention of the fluid and debris filled stomach. 8 mm T2 hyperintense nonenhancing cyst in the left hepatic lobe. The gallbladder, spleen and bilateral adrenal glands are normal. There is irregular dilation of the main pancreatic duct and multiple pancreatic ductal side branches consistent with sequela of chronic pancreatitis. There is diffuse parenchymal atrophy of the pancreas which appears to enhance relatively uniformly with no evident pancreatic mass is identified. Moderate left and mild right hydronephrosis also with mild left hydroureter and marked distention of the bladder which measures 17.6 x 13.1 x 12.3 cm and suggests bladder outlet obstruction or neurogenic bladder. 2.8 cm nonenhancing T2 hyperintense right renal cyst. No bowel obstruction. There is small amount of ascites scattered throughout the abdomen and pelvis along with diffuse mesenteric, retroperitoneal and body wall edema. No pathologically enlarged abdominal or pelvic lymphadenopathy. Bone marrow signal is unremarkable throughout. <ALEKSANDRA Petty - Last Filed: 09/10/21 13:27> (4) Gastric distention: Code(s): K31.89 - Other diseases of stomach and duodenum <ALEKSANDRA Petty - Last Filed: 09/10/21 13:27> Status:
[2021-09-10 14:55] LABS: RPR Screen Non-Reactive (Non-Reactive)
[2021-09-10 16:00] VITALS: BP 100/68; PULSE 80; PULSE 88; RESP 18; TEMP 36.6; O2SAT 94
[2021-09-10 17:01] LABS: Glucose Point of Care 190 mg/dl (65-105)
[2021-09-10 20:00] VITALS: BP 94/68; PULSE 93; PULSE 96; RESP 20; TEMP 36.2; O2SAT 96
[2021-09-10 20:52] LABS: Glucose Point of Care 92 mg/dl (65-105)
[2021-09-10] MEDS: traZODone HCL 25 MG TABLET PO (20:52)
--- NOTE | 2021-09-10 21:07 | PC.NURSE ---
Central line triple lumens flushed with normal saline. All three lumens flushed easily.
[2021-09-10 23:48] LABS: Glucose Point of Care 41 mg/dl (65-105)
[2021-09-11] VITALS: BP 107/71; PULSE 76; RESP 20; TEMP 36; O2SAT 91
--- NOTE | 2021-09-11 | PC.NURSE ---
Dr. Santana notified of pt's blood sugar of 41; New orders received and noted.
[2021-09-11] MEDS: DEXTROSE 50% 25 GM/50 ML SYRINGE IV PUSH (00:13)
--- NOTE | 2021-09-11 00:22 | PC.NURSE ---
Pt given D50% 12.5 gm IVP as ordered.
[2021-09-11 00:35] LABS: Glucose Point of Care 121 mg/dl (65-105)
[2021-09-11 04:00] VITALS: BP 111/71; PULSE 90; RESP 20; TEMP 36.2; O2SAT 96
[2021-09-11 05:26] LABS: Hematocrit 24.6 % (40.0-54.0); Hemoglobin 8.1 g/dL (14.0-18.0); Mean Corpuscular HGB Conc 32.9 g/dL (32.0-36.0); Mean Corpuscular Hemoglobin 30.5 pg (27.0-31.0); Mean Corpuscular Volume 92.5 fL (78.0-102.0); Mean Platelet Volume 8.2 fl (8.7-11.0); Platelet Count Result 283 K/mm3 (150-420); Red Blood Count 2.66 M/mm3 (4.70-6.10); Red Cell Distribution Width 15.9 % (11.6-14.4); White Blood Count 7.3 K/mm3 (4.8-10.8)
[2021-09-11 05:34] LABS: Anion Gap 9 mmol/L (8-16); Blood Urea Nitrogen 11 mg/dL (7-18); Calcium 8.1 mg/dL (8.5-10.1); Carbon Dioxide 26 mmol/L (21-32); Chloride 106 mmol/L (98-108); Estimated CRCL calculation 73 ml/min; Estimated Glomerular Filt Rate > 60; Glucose 145 mg/dL (70-99); Magnesium 1.7 mg/dL (1.8-2.4); Osmolality Calculated 294 mOsm/kg (285-295); Potassium 4.4 mmol/L (3.5-5.1); Sodium 141 mmol/L (136-145)
[2021-09-11] MEDS: METOCLOPRAMIDE HCL INJ 10 MG/2 ML VIAL IV PUSH ×3 (06:05→21:07)
--- NOTE | 2021-09-11 06:05 | PC.NURSE ---
Pt given metoclopramide 10 mg IVP as ordered.
--- NOTE | 2021-09-11 06:24 | PM.IMPN ---
Progress Note: A&P Assessment and Plan (1) Anemia: Code(s): D64.9 - Anemia, unspecified Status: Acute Assessment and Plan: 09/10/2021 Pt had a transfusion on 09/08/21 for Hgb of 6.6, highest Hgb after was 8.4, now down to 7.6, will continue to monitor and will transfuse needed, no active bleeding noticed, UA showed trace blood which could be from Ellison Cath placement the evening prior, Stool negative 09/11/2021 H/H slight improvement still monitoring, no obvious bleeding. (2) Cardiogenic shock: Code(s): R57.0 - Cardiogenic shock Status: Acute Assessment and Plan: Phenylephrine is off at this time with VS holding steady. Current MAP is 94, will continue to monitor VS and make any adjustments as needed. Pt would still benefit from a step down unit vs ICU given his pressor is off. 09/10/2021 MAP has been 67 to 93 over the last 24+ hours, Phenylephrine remains off, will DC this at this time. BP maintained after starting Flomax and placing Ellison Cath with 2 Liters initial urinary output with additional 1500 ml for following output. Pt remains on Wait List for [facility] 09/11/2021 Off of Pressors for 48 hours now and Phenylephrine has been DC'ed, Pt has maintained fairly good pressures some soft in the 90s systolic with MAP averaging 80 for the last 48 hours with lowest 67. Resolved at this time but will monitor closely. Attempted transfer again: [facility] has no beds available [facility] stated Pt does not need to come to them but that we should try [facility]. (3) Bladder outlet obstruction: Code(s): N32.0 - Bladder-neck obstruction Status: Acute Assessment and Plan: Will restart Ellison Catheter. Pt will need urology follow up or consultation in the future. 09/10/2021 Started Flomax yesterday evening, 2,000 ml urine output after Ellison Cath placed with additional 1500 ml for the following reading. WBC remain WNL EXAMINATION: MR chest wo/w con, MR abdomen wo/w con FINDINGS: Chest: Interval increase in size of a small right and moderate left posterior layering pleural effusions. Partial collapse of the left lower lobe and additional severe dependent atelectasis in the right lower lobe. Persistent mild curvilinear discoid atelectasis/scarring at the lingula and right middle lobe. Heart size is normal. No pericardial effusion. Mediastinal edema. Thoracic aorta is normal in caliber with no evident dissection. Some residual pulmonary emboli suggested in the pulmonary arteries of the right lower lobe however sensitivity and specificity are markedly more limited with MRI than CT No pathologically enlarged thoracic lymphadenopathy. Bone marrow signal is unremarkable. Abdomen: Marked distention of the fluid and debris filled stomach. 8 mm T2 hyperintense nonenhancing cyst in the left hepatic lobe. The gallbladder, spleen and bilateral adrenal glands are normal. There is irregular dilation of the main pancreatic duct and multiple pancreatic ductal side branches consistent with sequela of chronic pancreatitis. There is diffuse parenchymal atrophy of the pancreas which appears to enhance relatively uniformly with no evident pancreatic mass is identified. Moderate left and mild right hydronephrosis also with mild left hydroureter and marked distention of the bladder which measures 17.6 x 13.1 x 12.3 cm and suggests bladder outlet obstruction or neurogenic bladder. 2.8 cm nonenhancing T2 hyperintense right renal cyst. No bowel obstruction. There is small amount of ascites scattered throughout the abdomen and pelvis along with diffuse mesenteric, retroperitoneal and body wall edema. No pathologically enlarged abdominal or pelvic lymphadenopathy. Bone marrow signal is unremarkable throughout. 09/11/2021 Will obtain a KUB tomorrow to evaluate Gastric Distension and Hydronephrosis more so then Bladder Distention (which should be resolved considering Ellison Placement and there is very good urinary output 1.75 ml/kg/h). (4) Gastric distention:
[2021-09-11] MEDS: LEVOTHYROXINE SODIUM 75 MCG TABLET PO (06:25)
--- NOTE | 2021-09-11 06:36 | ECG_ITS ---
Measurements Intervals [place] Rate: 89 P: 80 KS: 145 QRS: 123 QRSD: 84 T: 36 QT: 376 QTc: 457 Interpretive Statements SINUS RHYTHM CONSIDER LIMB LEAD REVERSAL BORDERLINE R WAVE PROGRESSION, ANTERIOR LEADS BORDERLINE ECG Electronically Signed On 09-11-2021 8:18:56 [employer] by Albert Bansal D.O.
[2021-09-11 07:50] LABS: Glucose Point of Care 110 mg/dl (65-105)
[2021-09-11 07:50] LABS: Glucose Point of Care 148 mg/dl (65-105)
[2021-09-11 08:00] VITALS: BP 114/81; PULSE 100; PULSE 88; RESP 14; TEMP 36.4; O2SAT 94
[2021-09-11] MEDS: MAGNESIUM OXIDE 400 MG TABLET PO ×2 (09:00→16:44)
[2021-09-11] MEDS: MAGNESIUM SULF 2 GM/WATER 50ML 2 GM/50 ML BAG IVPB (09:10)
[2021-09-11] MEDS: PANTOPRAZOLE SODIUM IV 40 MG VIAL IV PUSH ×2 (09:26→21:07)
[2021-09-11] MEDS: SACCHAROMYCES BOULARDII 250 MG CAPSULE PO ×3 (09:27→16:45)
[2021-09-11] MEDS: CALCIUM CARBONATE (OSCAL) 500 MG TABLET 250 MG PO ×3 (09:27→16:44)
[2021-09-11] MEDS: FERROUS SULFATE 324 MG TABLET PO ×3 (09:27→16:43)
[2021-09-11] MEDS: GABAPENTIN 400 MG CAPSULE PO ×3 (09:27→16:44)
[2021-09-11] MEDS: traMADol HCL (*CRX) 50 MG TABLET PO ×2 (09:28→19:38)
[2021-09-11] MEDS: TAMSULOSIN HCL 0.4 MG CAPSULE PO (09:31)
[2021-09-11] MEDS: LOPERAMIDE HCL 2 MG CAPSULE PO ×2 (09:31→21:22)
[2021-09-11 11:12] LABS: Glucose Point of Care 364 mg/dl (65-105)
[2021-09-11 12:00] VITALS: BP 105/70; PULSE 86; PULSE 89; RESP 14; TEMP 36.6; O2SAT 98
[2021-09-11] MEDS: MORPHINE SULFATE ORAL CONC SOL (*CRX) 10 MG/0.5 ML SYRINGE 5 MG PO (14:19)
[2021-09-11 16:00] VITALS: BP 103/77; PULSE 99; RESP 18; TEMP 36.8; O2SAT 95
[2021-09-11 16:34] LABS: Glucose Point of Care 91 mg/dl (65-105)
[2021-09-11 20:00] VITALS: BP 120/78; PULSE 85; RESP 18; TEMP 36.6; O2SAT 97
[2021-09-11 21:02] LABS: Glucose Point of Care 286 mg/dl (65-105)
[2021-09-11] MEDS: traZODone HCL 25 MG TABLET PO (21:07)
[2021-09-12] VITALS: BP 118/74; PULSE 88; RESP 16; TEMP 36.6; O2SAT 95
[2021-09-12] MEDS: MORPHINE SULFATE ORAL CONC SOL (*CRX) 10 MG/0.5 ML SYRINGE 5 MG PO ×3 (00:02→16:55)
--- NOTE | 2021-09-12 02:40 | PC.NURSE ---
The transfer team called to get an update on pt's condition. They said they still didnt have a bed available at this time.
[2021-09-12 02:48] LABS: Glucose Point of Care 292 mg/dl (65-105)
[2021-09-12 04:00] VITALS: BP 115/70; PULSE 88; RESP 16; TEMP 36.6; O2SAT 95
[2021-09-12 05:22] LABS: Basophils Absolute Auto 0.05 K/mm3 (0.00-0.10); Basophils Percent Auto 0.8 % (0.0-1.0); Eosinophils Percent Auto 3.1 % (1.0-6.0); Hematocrit 24.9 % (40.0-54.0); Hemoglobin 7.9 g/dL (14.0-18.0); Immature Granulocyte Absolute 0.05 K/mm3 (0.00-0.00); Immature Granulocyte Percent A 0.8 % (0.0-0.0); Lymphocytes Absolute Auto 1.78 K/mm3 (1.10-4.50); Mean Corpuscular HGB Conc 31.7 g/dL (32.0-36.0); Mean Corpuscular Hemoglobin 29.7 pg (27.0-31.0); Mean Corpuscular Volume 93.6 fL (78.0-102.0); Mean Platelet Volume 8.2 fl (8.7-11.0); Monocytes Percent Auto 6.3 % (2.0-11.0); Neutrophils Absolute Auto 3.9 K/mm3 (1.7-7.2); Platelet Count Result 280 K/mm3 (150-420); Red Blood Count 2.66 M/mm3 (4.70-6.10); White Blood Count 6.4 K/mm3 (4.8-10.8)
[2021-09-12 05:45] LABS: Alanine Aminotransferase 29 U/L (16-63); Albumin Level 2.5 g/dL (3.4-5.0); Alkaline Phosphatase 371 U/L (46-116); Anion Gap 10 mmol/L (8-16); Aspartate Amino Transferase 27 U/L (15-37); Bilirubin,Total 0.3 mg/dL (0.00-1.00); Blood Urea Nitrogen 12 mg/dL (7-18); Calcium 7.9 mg/dL (8.5-10.1); Carbon Dioxide 24 mmol/L (21-32); Chloride 104 mmol/L (98-108); Estimated CRCL calculation 76 ml/min; Estimated Glomerular Filt Rate > 60; Glucose 313 mg/dL (70-99); Magnesium 1.9 mg/dL (1.8-2.4); Osmolality Calculated 297 mOsm/kg (285-295); Potassium 4.2 mmol/L (3.5-5.1); Sodium 138 mmol/L (136-145); Total Protein 5.4 g/dL (6.4-8.2)
[2021-09-12] MEDS: LEVOTHYROXINE SODIUM 75 MCG TABLET PO (06:03)
[2021-09-12] MEDS: METOCLOPRAMIDE HCL INJ 10 MG/2 ML VIAL IV PUSH ×3 (06:03→21:05)
[2021-09-12] MEDS: traMADol HCL (*CRX) 50 MG TABLET PO ×2 (06:19→12:22)
[2021-09-12 07:45] LABS: Glucose Point of Care 224 mg/dl (65-105)
[2021-09-12 07:48] VITALS: BP 93/58; PULSE 90; PULSE 94; RESP 18; TEMP 36.9; O2SAT 95
[2021-09-12] MEDS: TAMSULOSIN HCL 0.4 MG CAPSULE PO (08:12)
[2021-09-12] MEDS: CALCIUM CARBONATE (OSCAL) 500 MG TABLET 250 MG PO ×3 (08:12→16:51)
[2021-09-12] MEDS: GABAPENTIN 400 MG CAPSULE PO ×3 (08:12→16:51)
[2021-09-12] MEDS: LOPERAMIDE HCL 2 MG CAPSULE PO ×3 (08:12→21:05)
[2021-09-12] MEDS: FERROUS SULFATE 324 MG TABLET PO ×3 (08:13→16:51)
[2021-09-12] MEDS: MAGNESIUM OXIDE 400 MG TABLET PO ×2 (08:13→16:51)
[2021-09-12] MEDS: SACCHAROMYCES BOULARDII 250 MG CAPSULE PO ×3 (08:14→16:51)
[2021-09-12] MEDS: PANTOPRAZOLE SODIUM IV 40 MG VIAL IV PUSH ×2 (08:19→21:04)
--- NOTE | 2021-09-12 09:14 | PC.NURSE ---
[facility] access line called and updated on patient condition
[2021-09-12 11:34] LABS: Glucose Point of Care 202 mg/dl (65-105)
--- NOTE | 2021-09-12 11:58 | PM.IMPN ---
Progress Note: A&P Assessment and Plan (1) Anemia: Code(s): D64.9 - Anemia, unspecified Status: Acute Assessment and Plan: 09/10/2021 Pt had a transfusion on 09/08/21 for Hgb of 6.6, highest Hgb after was 8.4, now down to 7.6, will continue to monitor and will transfuse needed, no active bleeding noticed, UA showed trace blood which could be from Ellison Cath placement the evening prior, Stool negative 09/11/2021 H/H slight improvement still monitoring, no obvious bleeding. 09/12/2021 H/H 7.9/24.9 stable for the past 3 results (2) Cardiogenic shock: Code(s): R57.0 - Cardiogenic shock Status: Acute Assessment and Plan: Phenylephrine is off at this time with VS holding steady. Current MAP is 94, will continue to monitor VS and make any adjustments as needed. Pt would still benefit from a step down unit vs ICU given his pressor is off. 09/10/2021 MAP has been 67 to 93 over the last 24+ hours, Phenylephrine remains off, will DC this at this time. BP maintained after starting Flomax and placing Ellison Cath with 2 Liters initial urinary output with additional 1500 ml for following output. Pt remains on Wait List for [facility] 09/11/2021 Off of Pressors for 48 hours now and Phenylephrine has been DC'ed, Pt has maintained fairly good pressures some soft in the 90s systolic with MAP averaging 80 for the last 48 hours with lowest 67. Resolved at this time but will monitor closely. Attempted transfer again: [place] has no beds available [facility] stated Pt does not need to come to them but that we should try [facility]. 09/12/2021 Cardiac output has been stable over the past 3 days without pressors, will continue to monitor (3) Bladder outlet obstruction: Code(s): N32.0 - Bladder-neck obstruction Status: Acute Assessment and Plan: Will restart Ellison Catheter. Pt will need urology follow up or consultation in the future. 09/10/2021 Started Flomax yesterday evening, 2,000 ml urine output after Ellison Cath placed with additional 1500 ml for the following reading. WBC remain WNL EXAMINATION: MR chest wo/w con, MR abdomen wo/w con FINDINGS: Chest: Interval increase in size of a small right and moderate left posterior layering pleural effusions. Partial collapse of the left lower lobe and additional severe dependent atelectasis in the right lower lobe. Persistent mild curvilinear discoid atelectasis/scarring at the lingula and right middle lobe. Heart size is normal. No pericardial effusion. Mediastinal edema. Thoracic aorta is normal in caliber with no evident dissection. Some residual pulmonary emboli suggested in the pulmonary arteries of the right lower lobe however sensitivity and specificity are markedly more limited with MRI than CT No pathologically enlarged thoracic lymphadenopathy. Bone marrow signal is unremarkable. Abdomen: Marked distention of the fluid and debris filled stomach. 8 mm T2 hyperintense nonenhancing cyst in the left hepatic lobe. The gallbladder, spleen and bilateral adrenal glands are normal. There is irregular dilation of the main pancreatic duct and multiple pancreatic ductal side branches consistent with sequela of chronic pancreatitis. There is diffuse parenchymal atrophy of the pancreas which appears to enhance relatively uniformly with no evident pancreatic mass is identified. Moderate left and mild right hydronephrosis also with mild left hydroureter and marked distention of the bladder which measures 17.6 x 13.1 x 12.3 cm and suggests bladder outlet obstruction or neurogenic bladder. 2.8 cm nonenhancing T2 hyperintense right renal cyst. No bowel obstruction. There is small amount of ascites scattered throughout the abdomen and pelvis along with diffuse mesenteric, retroperitoneal and body wall edema. No pathologically enlarged abdominal or pelvic lymphadenopathy. Bone marrow signal is unremarkable throughout. 09/11/2021 Will obtain a KUB tomorrow to evaluate Gastric Distension and Hydronephrosis more
[2021-09-12 12:00] VITALS: BP 97/65; PULSE 92; PULSE 94; RESP 18; TEMP 36.3; O2SAT 95
[2021-09-12 15:40] VITALS: BP 110/78; PULSE 91; RESP 18; TEMP 36.6; O2SAT 99
[2021-09-12 16:40] VITALS: PULSE 100
[2021-09-12 17:05] LABS: Glucose Point of Care 244 mg/dl (65-105)
[2021-09-12 19:41] LABS: Glucose Point of Care 71 mg/dl (65-105)
[2021-09-12] MEDS: traZODone HCL 25 MG TABLET PO (21:05)
[2021-09-12 22:49] LABS: Glucose Point of Care 73 mg/dl (65-105)
[2021-09-12 22:49] LABS: Glucose Point of Care 87 mg/dl (65-105)
[2021-09-13] VITALS (8 sets, daily range): BP systolic 97–118; BP diastolic 64–85; PULSE 76–105; RESP 16–20; TEMP 36.6–37.1; O2SAT 94–97
--- NOTE | 2021-09-13 03:05 | PC.NURSE ---
Fide, from [facility] hospital call center called to get an update on patient. Information given and they said they had pt on the waiting list but no bed was available at this time.
[2021-09-13 03:30] LABS: Glucose Point of Care 101 mg/dl (65-105)
--- NOTE | 2021-09-13 03:41 | PC.NURSE ---
Requested tuna salad sandwich, when informed none was available, requested a salad. Explained that no salad present and bloodwork ordered for morning. Accu-check:101. Denies complaints or diarrhea. Given peanut butter and 1 package of devin crackers.
[2021-09-13] MEDS: MORPHINE SULFATE ORAL CONC SOL (*CRX) 10 MG/0.5 ML SYRINGE 5 MG PO (03:53)
[2021-09-13 05:18] LABS: Mean Corpuscular HGB Conc 32.1 g/dL (32.0-36.0); Mean Corpuscular Hemoglobin 29.9 pg (27.0-31.0); Mean Platelet Volume 8.2 fl (8.7-11.0); Platelet Count Result 287 K/mm3 (150-420); Red Blood Count 3.01 M/mm3 (4.70-6.10); Red Cell Distribution Width 16.2 % (11.6-14.4); White Blood Count 6.5 K/mm3 (4.8-10.8)
[2021-09-13 05:42] LABS: Anion Gap 8 mmol/L (8-16); Blood Urea Nitrogen 10 mg/dL (7-18); Calcium 8.4 mg/dL (8.5-10.1); Carbon Dioxide 27 mmol/L (21-32); Chloride 106 mmol/L (98-108); Estimated CRCL calculation 72 ml/min; Estimated Glomerular Filt Rate > 60; Glucose 104 mg/dL (70-99); Osmolality Calculated 291 mOsm/kg (285-295); Potassium 4.3 mmol/L (3.5-5.1); Sodium 141 mmol/L (136-145)
[2021-09-13] MEDS: LEVOTHYROXINE SODIUM 75 MCG TABLET PO (06:19)
[2021-09-13] MEDS: METOCLOPRAMIDE HCL INJ 10 MG/2 ML VIAL IV PUSH ×3 (06:20→21:18)
[2021-09-13] MEDS: traMADol HCL (*CRX) 50 MG TABLET PO ×3 (06:23→19:16)
--- NOTE | 2021-09-13 06:30 | PC.NURSE ---
Humalog 75/25 held; Blood Glucose:104.
[2021-09-13 08:08] LABS: Glucose Point of Care 192 mg/dl (65-105)
[2021-09-13] MEDS: FERROUS SULFATE 324 MG TABLET PO ×3 (08:41→17:13)
[2021-09-13] MEDS: GABAPENTIN 400 MG CAPSULE PO ×3 (08:41→17:13)
[2021-09-13] MEDS: PANTOPRAZOLE SODIUM IV 40 MG VIAL IV PUSH ×2 (08:41→21:18)
[2021-09-13] MEDS: TAMSULOSIN HCL 0.4 MG CAPSULE PO (08:41)
[2021-09-13] MEDS: CALCIUM CARBONATE (OSCAL) 500 MG TABLET 250 MG PO ×3 (08:41→17:14)
[2021-09-13] MEDS: MAGNESIUM OXIDE 400 MG TABLET PO ×2 (08:41→17:13)
[2021-09-13] MEDS: SACCHAROMYCES BOULARDII 250 MG CAPSULE PO ×3 (08:42→17:13)
[2021-09-13] MEDS: LOPERAMIDE HCL 2 MG CAPSULE PO ×7 (09:31→22:06)
[2021-09-13 11:17] LABS: Glucose Point of Care 170 mg/dl (65-105)
--- NOTE | 2021-09-13 13:28 | PM.IMPN ---
Progress Note: A&P Assessment and Plan (1) Anemia: Code(s): D64.9 - Anemia, unspecified Status: Acute Assessment and Plan: 09/10/2021 Pt had a transfusion on 09/08/21 for Hgb of 6.6, highest Hgb after was 8.4, now down to 7.6, will continue to monitor and will transfuse needed, no active bleeding noticed, UA showed trace blood which could be from Ellison Cath placement the evening prior, Stool negative 09/11/2021 H/H slight improvement still monitoring, no obvious bleeding. 09/12/2021 H/H 7.9/24.9 stable for the past 3 results 09/13/2021 H/H 06/03 stable (2) Cardiogenic shock: Code(s): R57.0 - Cardiogenic shock Status: Acute Assessment and Plan: Phenylephrine is off at this time with VS holding steady. Current MAP is 94, will continue to monitor VS and make any adjustments as needed. Pt would still benefit from a step down unit vs ICU given his pressor is off. 09/10/2021 MAP has been 67 to 93 over the last 24+ hours, Phenylephrine remains off, will DC this at this time. BP maintained after starting Flomax and placing Ellison Cath with 2 Liters initial urinary output with additional 1500 ml for following output. Pt remains on Wait List for [facility] 09/11/2021 Off of Pressors for 48 hours now and Phenylephrine has been DC'ed, Pt has maintained fairly good pressures some soft in the 90s systolic with MAP averaging 80 for the last 48 hours with lowest 67. Resolved at this time but will monitor closely. Attempted transfer again: [place] has no beds available [facility] stated Pt does not need to come to them but that we should try [facility]. 09/12/2021 Cardiac output has been stable over the past 3 days without pressors, will continue to monitor 09/13/2021 resolved, BPs stable (3) Bladder outlet obstruction: Code(s): N32.0 - Bladder-neck obstruction Status: Acute Assessment and Plan: Will restart Ellison Catheter. Pt will need urology follow up or consultation in the future. 09/10/2021 Started Flomax yesterday evening, 2,000 ml urine output after Ellison Cath placed with additional 1500 ml for the following reading. WBC remain WNL EXAMINATION: MR chest wo/w con, MR abdomen wo/w con FINDINGS: Chest: Interval increase in size of a small right and moderate left posterior layering pleural effusions. Partial collapse of the left lower lobe and additional severe dependent atelectasis in the right lower lobe. Persistent mild curvilinear discoid atelectasis/scarring at the lingula and right middle lobe. Heart size is normal. No pericardial effusion. Mediastinal edema. Thoracic aorta is normal in caliber with no evident dissection. Some residual pulmonary emboli suggested in the pulmonary arteries of the right lower lobe however sensitivity and specificity are markedly more limited with MRI than CT No pathologically enlarged thoracic lymphadenopathy. Bone marrow signal is unremarkable. Abdomen: Marked distention of the fluid and debris filled stomach. 8 mm T2 hyperintense nonenhancing cyst in the left hepatic lobe. The gallbladder, spleen and bilateral adrenal glands are normal. There is irregular dilation of the main pancreatic duct and multiple pancreatic ductal side branches consistent with sequela of chronic pancreatitis. There is diffuse parenchymal atrophy of the pancreas which appears to enhance relatively uniformly with no evident pancreatic mass is identified. Moderate left and mild right hydronephrosis also with mild left hydroureter and marked distention of the bladder which measures 17.6 x 13.1 x 12.3 cm and suggests bladder outlet obstruction or neurogenic bladder. 2.8 cm nonenhancing T2 hyperintense right renal cyst. No bowel obstruction. There is small amount of ascites scattered throughout the abdomen and pelvis along with diffuse mesenteric, retroperitoneal and body wall edema. No pathologically enlarged abdominal or pelvic lymphadenopathy. Bone marrow signal is unremarkable throughout. 09/11/2021 Will obtain a KUB to
[2021-09-13 16:32] LABS: Glucose Point of Care 173 mg/dl (65-105)
[2021-09-13] MEDS: CYCLOBENZAPRINE HCL 5 MG TABLET PO (17:16)
[2021-09-13] MEDS: traZODone HCL 25 MG TABLET PO (21:18)
[2021-09-13 21:23] LABS: Glucose Point of Care 64 mg/dl (65-105)
--- NOTE | 2021-09-13 21:30 | PC.NURSE ---
pt given snack for low bs, sandwich, pb and crackers and slim sydnie, pt sitting up in bed on phone, call light in reach
--- NOTE | 2021-09-13 23:00 | PC.NURSE ---
Completed bedside change of shift report. Previous nurse indicated that patient's HS blood sugar was 64. He was given snacks and juice, which brought up the blood sugar. Patient is sleeping quietly in bed, with no signs of pain or discomfort.
[2021-09-14] VITALS: BP 84/49; PULSE 100; PULSE 88; RESP 18; TEMP 36.9; O2SAT 95
--- NOTE | 2021-09-14 02:00 | PC.NURSE ---
Completed patient rounding. Patient is sleeping quietly in bed, with no signs of pain or discomfort.
[2021-09-14 04:00] VITALS: BP 117/80; PULSE 73; PULSE 88; RESP 18; TEMP 36.7; O2SAT 97
[2021-09-14 05:29] LABS: Hematocrit 25.4 % (40.0-54.0); Hemoglobin 8.1 g/dL (14.0-18.0); Mean Corpuscular HGB Conc 31.9 g/dL (32.0-36.0); Mean Corpuscular Volume 94.1 fL (78.0-102.0); Mean Platelet Volume 8.4 fl (8.7-11.0); Platelet Count Result 256 K/mm3 (150-420); Red Cell Distribution Width 16.1 % (11.6-14.4); White Blood Count 5.6 K/mm3 (4.8-10.8)
[2021-09-14 05:40] LABS: Alanine Aminotransferase 25 U/L (16-63); Albumin Level 2.4 g/dL (3.4-5.0); Alkaline Phosphatase 320 U/L (46-116); Anion Gap 9 mmol/L (8-16); Aspartate Amino Transferase 26 U/L (15-37); Bilirubin,Total 0.2 mg/dL (0.00-1.00); Blood Urea Nitrogen 9 mg/dL (7-18); Calcium 8.2 mg/dL (8.5-10.1); Carbon Dioxide 27 mmol/L (21-32); Chloride 105 mmol/L (98-108); Estimated CRCL calculation 77 ml/min; Estimated Glomerular Filt Rate > 60; Glucose 113 mg/dL (70-99); Osmolality Calculated 291 mOsm/kg (285-295); Potassium 4.2 mmol/L (3.5-5.1); Sodium 141 mmol/L (136-145); Total Protein 5.3 g/dL (6.4-8.2)
[2021-09-14] MEDS: METOCLOPRAMIDE HCL INJ 10 MG/2 ML VIAL IV PUSH ×3 (06:15→21:21)
[2021-09-14] MEDS: LEVOTHYROXINE SODIUM 75 MCG TABLET PO (06:16)
[2021-09-14] MEDS: traMADol HCL (*CRX) 50 MG TABLET PO ×3 (06:36→21:19)
[2021-09-14] MEDS: LOPERAMIDE HCL 2 MG CAPSULE PO ×5 (06:37→21:48)
[2021-09-14 08:00] VITALS: PULSE 101; PULSE 96; RESP 16; TEMP 36.4; O2SAT 95
[2021-09-14] MEDS: PANTOPRAZOLE SODIUM IV 40 MG VIAL IV PUSH ×2 (08:53→21:21)
[2021-09-14] MEDS: GABAPENTIN 400 MG CAPSULE PO ×3 (08:54→17:12)
[2021-09-14] MEDS: MAGNESIUM OXIDE 400 MG TABLET PO ×2 (08:54→17:12)
[2021-09-14] MEDS: FERROUS SULFATE 324 MG TABLET PO ×3 (08:54→17:12)
[2021-09-14] MEDS: TAMSULOSIN HCL 0.4 MG CAPSULE PO (08:55)
[2021-09-14] MEDS: CALCIUM CARBONATE (OSCAL) 500 MG TABLET 250 MG PO ×3 (08:55→17:12)
[2021-09-14] MEDS: SACCHAROMYCES BOULARDII 250 MG CAPSULE PO ×3 (08:57→17:15)
[2021-09-14 11:47] LABS: Glucose Point of Care 94 mg/dl (65-105)
[2021-09-14 12:00] VITALS: BP 106/69; PULSE 92; PULSE 99; RESP 18; TEMP 36.2; O2SAT 98
--- NOTE | 2021-09-14 13:22 | PM.IMPN ---
Progress Note: A&P Assessment and Plan (1) Anemia: Code(s): D64.9 - Anemia, unspecified Status: Acute Assessment and Plan: 09/10/2021 Pt had a transfusion on 09/08/21 for Hgb of 6.6, highest Hgb after was 8.4, now down to 7.6, will continue to monitor and will transfuse needed, no active bleeding noticed, UA showed trace blood which could be from Ellison Cath placement the evening prior, Stool negative 09/11/2021 H/H slight improvement still monitoring, no obvious bleeding. 09/12/2021 H/H 7.9/24.9 stable for the past 3 results 09/13/2021 H/H 06/03 stable 09/14/2021 8.1/25.4 (2) Cardiogenic shock: Code(s): R57.0 - Cardiogenic shock Status: Acute Assessment and Plan: Phenylephrine is off at this time with VS holding steady. Current MAP is 94, will continue to monitor VS and make any adjustments as needed. Pt would still benefit from a step down unit vs ICU given his pressor is off. 09/10/2021 MAP has been 67 to 93 over the last 24+ hours, Phenylephrine remains off, will DC this at this time. BP maintained after starting Flomax and placing Ellison Cath with 2 Liters initial urinary output with additional 1500 ml for following output. Pt remains on Wait List for [facility] 09/11/2021 Off of Pressors for 48 hours now and Phenylephrine has been DC'ed, Pt has maintained fairly good pressures some soft in the 90s systolic with MAP averaging 80 for the last 48 hours with lowest 67. Resolved at this time but will monitor closely. Attempted transfer again: [place] has no beds available [facility] stated Pt does not need to come to them but that we should try [facility]. 09/12/2021 Cardiac output has been stable over the past 3 days without pressors, will continue to monitor 09/13/2021 resolved, BPs stable 09/14/2021 ... (3) Bladder outlet obstruction: Code(s): N32.0 - Bladder-neck obstruction Status: Acute Assessment and Plan: Will restart Ellison Catheter. Pt will need urology follow up or consultation in the future. 09/10/2021 Started Flomax yesterday evening, 2,000 ml urine output after Ellison Cath placed with additional 1500 ml for the following reading. WBC remain WNL EXAMINATION: MR chest wo/w con, MR abdomen wo/w con FINDINGS: Chest: Interval increase in size of a small right and moderate left posterior layering pleural effusions. Partial collapse of the left lower lobe and additional severe dependent atelectasis in the right lower lobe. Persistent mild curvilinear discoid atelectasis/scarring at the lingula and right middle lobe. Heart size is normal. No pericardial effusion. Mediastinal edema. Thoracic aorta is normal in caliber with no evident dissection. Some residual pulmonary emboli suggested in the pulmonary arteries of the right lower lobe however sensitivity and specificity are markedly more limited with MRI than CT No pathologically enlarged thoracic lymphadenopathy. Bone marrow signal is unremarkable. Abdomen: Marked distention of the fluid and debris filled stomach. 8 mm T2 hyperintense nonenhancing cyst in the left hepatic lobe. The gallbladder, spleen and bilateral adrenal glands are normal. There is irregular dilation of the main pancreatic duct and multiple pancreatic ductal side branches consistent with sequela of chronic pancreatitis. There is diffuse parenchymal atrophy of the pancreas which appears to enhance relatively uniformly with no evident pancreatic mass is identified. Moderate left and mild right hydronephrosis also with mild left hydroureter and marked distention of the bladder which measures 17.6 x 13.1 x 12.3 cm and suggests bladder outlet obstruction or neurogenic bladder. 2.8 cm nonenhancing T2 hyperintense right renal cyst. No bowel obstruction. There is small amount of ascites scattered throughout the abdomen and pelvis along with diffuse mesenteric, retroperitoneal and body wall edema. No pathologically enlarged abdominal or pelvic lymphadenopathy. Bone marrow signal is unremarkable throughou
[2021-09-14 16:00] VITALS: BP 108/72; PULSE 77; RESP 16; TEMP 36.5; O2SAT 93
[2021-09-14 16:45] LABS: Glucose Point of Care 204 mg/dl (65-105)
[2021-09-14 20:00] VITALS: BP 115/77; PULSE 86; PULSE 94; RESP 18; TEMP 36.4; O2SAT 96
--- NOTE | 2021-09-14 20:10 | PC.NURSE ---
Patient blood glucose 29. Patient alert and oriented but stated he felt like his sugar was low . Provided with appropriate snack. Rechecked and doctor notified. Order received to not give glucagon but run D5 at 150 ml/hr and recheck BG in 2 hours
[2021-09-14] MEDS: DEXTROSE 5% 1,000 ML 1,000 ML 100 ML IVPB (20:11)
[2021-09-14 20:29] LABS: Glucose 41 mg/dL (70-99)
[2021-09-14 21:05] LABS: Glucose Point of Care 39 mg/dl (65-105)
[2021-09-14] MEDS: traZODone HCL 25 MG TABLET PO (21:19)
[2021-09-14 22:11] LABS: Glucose Point of Care < 33 mg/dl (65-105)
[2021-09-14 22:11] LABS: Glucose Point of Care 226 mg/dl (65-105)
[2021-09-14 23:13] LABS: Glucose Point of Care 218 mg/dl (65-105)
[2021-09-15] VITALS (7 sets, daily range): BP systolic 97–114; BP diastolic 65–78; PULSE 76–98; RESP 18; TEMP 36.2–36.6; O2SAT 95–98
[2021-09-15 00:24] LABS: Glucose Point of Care 199 mg/dl (65-105)
[2021-09-15 01:10] LABS: Glucose Point of Care 239 mg/dl (65-105)
[2021-09-15] MEDS: LOPERAMIDE HCL 2 MG CAPSULE PO ×3 (04:50→13:58)
[2021-09-15 06:08] LABS: Hematocrit 27.5 % (40.0-54.0); Hemoglobin 8.7 g/dL (14.0-18.0); Mean Corpuscular HGB Conc 31.6 g/dL (32.0-36.0); Mean Corpuscular Hemoglobin 29.8 pg (27.0-31.0); Mean Corpuscular Volume 94.2 fL (78.0-102.0); Mean Platelet Volume 8.4 fl (8.7-11.0); Platelet Count Result 279 K/mm3 (150-420); Red Blood Count 2.92 M/mm3 (4.70-6.10); Red Cell Distribution Width 16.1 % (11.6-14.4); White Blood Count 6.6 K/mm3 (4.8-10.8)
[2021-09-15 06:25] LABS: Anion Gap 8 mmol/L (8-16); Blood Urea Nitrogen 8 mg/dL (7-18); Calcium 7.9 mg/dL (8.5-10.1); Carbon Dioxide 26 mmol/L (21-32); Chloride 107 mmol/L (98-108); Estimated CRCL calculation 84 ml/min; Estimated Glomerular Filt Rate > 60; Glucose 106 mg/dL (70-99); Magnesium 1.5 mg/dL (1.8-2.4); Osmolality Calculated 290 mOsm/kg (285-295); Potassium 3.7 mmol/L (3.5-5.1); Sodium 141 mmol/L (136-145)
[2021-09-15] MEDS: LEVOTHYROXINE SODIUM 75 MCG TABLET PO (06:45)
[2021-09-15] MEDS: METOCLOPRAMIDE HCL INJ 10 MG/2 ML VIAL IV PUSH ×2 (06:45→13:24)
[2021-09-15] MEDS: MAGNESIUM SULF 4 GM/WATER100ML 4 GM/100 ML BAG IVPB (07:45)
--- NOTE | 2021-09-15 08:22 | PM.DS ---
DS: Admitting Diagnosis Discharge Date 09/15/2021 <Alen Russell ALEKSANDRA Barney - Last Filed: 09/15/21 16:45> Admitting Diagnosis Cardiogenic Shock, Hyperosmolar Hyperglycemic State, AMS <Alen Russell ALEKSANDRA Barney - Last Filed: 09/15/21 16:45> DS: Discharge Diagnosis Discharge Diagnosis (1) Anemia: Code(s): D64.9 - Anemia, unspecified <Alen ShookALEKSANDRA Mcgee - Last Filed: 09/15/21 16:45> Status: Acute <Alen Russell ALEKSANDRA Barney - Last Filed: 09/15/21 16:45> Assessment and Plan: 09/10/2021 Pt had a transfusion on 09/08/21 for Hgb of 6.6, highest Hgb after was 8.4, now down to 7.6, will continue to monitor and will transfuse needed, no active bleeding noticed, UA showed trace blood which could be from Ellison Cath placement the evening prior, Stool negative 09/11/2021 H/H slight improvement still monitoring, no obvious bleeding. 09/12/2021 H/H 7.9/24.9 stable for the past 3 results 09/13/2021 H/H 9 stable 09/14/2021 8.1/25.4 09/15/2021 8.7/27.5 stable, continue Ferrous sulfate <Alen ShookALEKSANDRA Mcgee - Last Filed: 09/15/21 16:45> (2) Cardiogenic shock: Code(s): R57.0 - Cardiogenic shock <Alen ShookALEKSANDRA Mcgee - Last Filed: 09/15/21 16:45> Status: Acute <Alen ShookALEKSANDRA Mcgee - Last Filed: 09/15/21 16:45> Assessment and Plan: Phenylephrine is off at this time with VS holding steady. Current MAP is 94, will continue to monitor VS and make any adjustments as needed. Pt would still benefit from a step down unit vs ICU given his pressor is off. 09/10/2021 MAP has been 67 to 93 over the last 24+ hours, Phenylephrine remains off, will DC this at this time. BP maintained after starting Flomax and placing Ellison Cath with 2 Liters initial urinary output with additional 1500 ml for following output. Pt remains on Wait List for [facility] 09/11/2021 Off of Pressors for 48 hours now and Phenylephrine has been DC'ed, Pt has maintained fairly good pressures some soft in the 90s systolic with MAP averaging 80 for the last 48 hours with lowest 67. Resolved at this time but will monitor closely. Attempted transfer again: [place] has no beds available [facility] stated Pt does not need to come to them but that we should try [facility]. 09/12/2021 Cardiac output has been stable over the past 3 days without pressors, will continue to monitor 09/13/2021 resolved, BPs stable 09/14/2021 ... 09/15/2021 Echocardiogram Summary 1. Complete two-dimensional, color flow and Doppler transthoracic echocardiogram is performed. 2. Left ventricular chamber dimension is normal. 3. Left ventricular systolic function is normal, estimated at 65-70%. 4. The left ventricular diastolic function is normal. 5. E/e' 7 is not elevated. 6. Global longitudinal strain is normal at -18.7%. 7. There is mild aortic valve sclerosis. 8. There is trace tricuspid valve regurgitation. 9. Moderate pulmonary hypertension, estimated pulmonary arterial systolic pressure is 52 mmHg. 10. There is small circumferential pericardial effusion. <ALEKSANDRA Petty - Last Filed: 09/15/21 16:45> (3) Bladder outlet obstruction: Code(s): N32.0 - Bladder-neck obstruction <ALEKSANDRA Petty - Last Filed: 09/15/21 16:45> Status: Acute <ALEKSANDRA Petty - Last Filed: 09/15/21 16:45> Assessment and Plan: Will restart Ellison Catheter. Pt will need urology follow up or consultation in the future. 09/10/2021 Started Flomax yesterday evening, 2,000 ml urine output after Ellison Cath placed with additional 1500 ml for the following reading. WBC remain WNL EXAMINATION: MR chest wo/w con, MR abdomen wo/w con FINDINGS: Chest: Interval increase in size of a small right and moderate left posterior layering pleural effusions. Partial collapse of the left lower lobe and additional severe dependent atelectasis in the right lower lobe. Persistent mild curvilinear discoid atelectasis/scarring at the omar
[2021-09-15] MEDS: CALCIUM CARBONATE (OSCAL) 500 MG TABLET 250 MG PO ×2 (08:53→12:30)
[2021-09-15] MEDS: PANTOPRAZOLE SODIUM IV 40 MG VIAL IV PUSH (08:53)
[2021-09-15] MEDS: GABAPENTIN 400 MG CAPSULE PO ×2 (08:53→13:23)
[2021-09-15] MEDS: TAMSULOSIN HCL 0.4 MG CAPSULE PO (08:53)
[2021-09-15] MEDS: SACCHAROMYCES BOULARDII 250 MG CAPSULE PO ×2 (08:53→13:23)
[2021-09-15] MEDS: FERROUS SULFATE 324 MG TABLET PO ×2 (08:54→12:30)
[2021-09-15] MEDS: MAGNESIUM OXIDE 400 MG TABLET PO (08:54)
[2021-09-15] MEDS: traMADol HCL (*CRX) 50 MG TABLET PO ×2 (08:59→15:34)
--- NOTE | 2021-09-15 09:00 | ECHO_ITS ---
Patient Info Name: Shad Rodriguez Age: 56 years : 1965 Gender: Male Ht: 68 in Wt: 120 lbs BSA: 1.60 m2 HR: 79 bpm BP: 114 / 76 mmHg Technical Quality: Good Exam Date: 09/15/2021 10:24 AM Exam Location: [facility] Patient Status: Inpatient Admit Date: 08/28/2021 Staff Ordering Physician: Alen Barney APN-Nathaniel Crepe Maker: Margie Petit Attending Provider: Suleiman Reddy DO Referring Physician: Ector LEE; Exam Type: CA echo doppler color flow Study Info Indications R57.0 - Cardiogenic shock Complete two-dimensional, color flow and Doppler transthoracic echocardiogram is performed. Strain analysis performed. Summary 1. Complete two-dimensional, color flow and Doppler transthoracic echocardiogram is performed. 2. Left ventricular chamber dimension is normal. 3. Left ventricular systolic function is normal, estimated at 65-70%. 4. The left ventricular diastolic function is normal. 5. E/e' 7 is not elevated. 6. Global longitudinal strain is normal at -18.7%. 7. There is mild aortic valve sclerosis. 8. There is trace tricuspid valve regurgitation. 9. Moderate pulmonary hypertension, estimated pulmonary arterial systolic pressure is 52 mmHg. 10. There is small circumferential pericardial effusion. Left Ventricle E/e' 7 is not elevated. Global longitudinal strain is normal at -18.7%. Left ventricular chamber dimension is normal. Left ventricular systolic function is normal, estimated at 65-70%. The left ventricular diastolic function is normal. Right Ventricle Right ventricular systolic function is normal and with normal TAPSE 1.8 cm. Right ventricular chamber dimension is normal. Left Atria Left atrial chamber dimension is normal. Right Atria Right atrial chamber dimension is normal. Aortic Valve The aortic valve is trileaflet. There is mild aortic valve sclerosis. There is no aortic valve stenosis. There is no aortic valve regurgitation. Pulmonic Valve There is no pulmonic regurgitation. Mitral Valve There is no mitral valve stenosis. There is no mitral valve regurgitation. Tricuspid Valve There is trace tricuspid valve regurgitation. Moderate pulmonary hypertension, estimated pulmonary arterial systolic pressure is 52 mmHg. Pericardium/Pleural There is small circumferential pericardial effusion. Inferior Vena Cava Normal inferior vena cava with >50% collapse upon inspiration consistent with normal right atrial pressure, 5 mmHg. Aorta The aortic root size at the sinus of Valsalva is normal. Left Ventricular Outflow Tract Name Value Normal LVOT 2D LVOT Diameter 2.0 cm LVOT Doppler LVOT Peak Velocity 95 cm/s LVOT Peak Gradient 4 mmHg LVOT Mean Gradient 2 mmHg LVOT VTI 22 cm LVOT VTI/AV VTI Ratio 0.8 LVOT Stroke Volume 72 ml Mitral Valve Name Value Normal --------
--- NOTE | 2021-09-15 10:16 | PC.NURSE ---
large loose stool, loperamide given, bed change and gown change completed
[2021-09-15 12:15] LABS: Glucose Point of Care 437 mg/dl (65-105)
[2021-09-15 14:37] LABS: Glucose Point of Care 254 mg/dl (65-105)
--- NOTE | 2021-09-15 17:15 | PC.NURSE ---
This nurse went into patients room to notify him that his sister was here to transport him home due to patient being discharge. Patient noted kneeling on floor beside bedside commode at 1645. Patient states he fell trying to get to commode, states he was trying to get there before he had an accident. This nurse assisted patient to standing position with minimal assist. Patient denies any pain from fall. Redness noted to bilateral knees. Bill JONES notified and assessed patient. Patient sitting up in chair. This nurse assisted patient change gravity drainage bag on loera to leg bag and assisted patient to dress in clothing from home. All belongings gathered together and sent home with patient. All discharge instructions and education reviewed with patient and family member. Patient states understanding. Central line site discontinued and pressure dressing applied to site. Education given about site care. This nurse accompanied patient to front door via wheelchair, patient left via private vehicle with family member.
[2021-11-21 17:01] LABS: TB Skin Test Erythema 0 mm; TB Skin Test Induration 0 mm (0-10); TB Skin Test Interpretation Negative (Negative); TB Skin Test Site Right Arm
== END 2021-09-15 17:15 | disposition home health service (06) | DRG 637 ==
LOC: CHSED 18:39 → CHS2ND 19:35
PROVIDERS: Nurse Practitioner; Nurse Practitioner Family; Admitting Provider Family Medicine; Emergency Provider Family Medicine; PCP Internal Medicine; Visit Provider Family Medicine
DX: E13.00 Other specified diabetes mellitus with hyperosmolarity without nonketotic hyperglycemic-hyperosmolar coma (NKHHC) (principal); J43.9 Emphysema, unspecified; F17.220 Nicotine dependence, chewing tobacco, uncomplicated; Z20.822 Contact with and (suspected) exposure to COVID-19; R57.0 Cardiogenic shock; J96.90 Respiratory failure, unspecified, unspecified whether with hypoxia or hypercapnia; N17.9 Acute kidney failure, unspecified; E46 Unspecified protein-calorie malnutrition; E87.6 Hypokalemia; R63.4 Abnormal weight loss; I27.20 Pulmonary hypertension, unspecified; L89.151 Pressure ulcer of sacral region, stage 1; E03.9 Hypothyroidism, unspecified; D50.9 Iron deficiency anemia, unspecified; E83.42 Hypomagnesemia; N32.0 Bladder-neck obstruction; K31.89 Other diseases of stomach and duodenum; J98.4 Other disorders of lung; R19.7 Diarrhea, unspecified; F17.200 Nicotine dependence, unspecified, uncomplicated; Z79.01 Long term (current) use of anticoagulants; Z79.4 Long term (current) use of insulin; Z86.711 Personal history of pulmonary embolism
CPT/HCPCS: 11042; 36415; 36430; 36556; 36600; 36680; 70450; 71045; 71260; 71552; 74177; 74183; 80048; 80053; 80202; 80307; 81001; 82248; 82550; 82728; 82805; 82947; 82948; 83010; 83540; 83550; 83605; 83690; 83735; 84100; 84439; 84443; 84466; 84484; 85014; 85018; 85025; 85027; 85046; 85610; 85730; 86140; 86480; 86580; 86592; 86703; 86850; 86900; 86901; 86920; 87040; 87045; 87177; 87209; 87269; 87272; 87324; 87426; 87427; 93005; 93306; 94667; 94668; 96360; 97110; 97162; 97165; 97530; 97535; 99285; A9270; A9577; C1751; C9113; C9803; J0692; J1650; J1720; J1815; J2270; J2370; J2405; J2765; J3370; J3475; J3480; J7030; J7040; J7050; J7060; J7070; P9016; P9047; Q9967

== ENCOUNTER 2021-11-06 14:09 | Emergency (ER) | payer MEDICAID, SELFPAY ==
--- NOTE | ~2021-11-06 | XR_ITS ---
XR chest 1V portable 11/06/2021 15:00 Indication: Shortness of breath Procedure: AP portable chest Comparison: Comparison to multiple prior studies sequentially, with oldest reviewed study dated 08/07. Findings: There is patchy airspace disease of the left mid and lower lung, consistent with pneumonia. The lungs are hyperinflated which is consistent with, but not diagnostic of chronic obstructive pulm onary disease. No significant effusion or pneumothorax. Impression: 1: Patchy airspace disease left mid and lower lung, consistent with pneumonia. Reviewed, dictated and finalized at location A. TOP ANALYST Impression: 1: Patchy airspace disease left mid and lower lung, consistent with pneumonia.
--- NOTE | 2021-11-06 14:28 | ECG_ITS ---
Measurements Intervals [place] Rate: 88 P: 108 NJ: 104 QRS: 101 QRSD: 94 T: 82 QT: 380 QTc: 461 Interpretive Statements SINUS RHYTHM WITH SHORT NJ INTERVAL PATTERN CONSISTENT WITH PULMONARY DISEASE POSSIBLE RIGHT VENTRICULAR HYPERTROPHY [SOME/ALL OF: PROMINENT R IN V1, LATE TRANSITION, RAD, BERNY, SSS] NONSPECIFIC T-WAVE ABNORMALITY SIGNIFICANT ARTIFACT LIMITS INTERPRETABILITY ABNORMAL ECG COMPARED TO ECG 09/11/2021 07:01:57 T-WAVE ABNORMALITY NOW PRESENT Electronically Signed On 11-06-2021 15:18:45 ADMINISTRATION DEAN by Bryant Goodman M.D.
[2021-11-06 14:37] VITALS: BP 110/76; PULSE 78; RESP 20; O2SAT 100
[2021-11-06 14:42] LABS: Glucose Point of Care > 450 mg/dl (65-105)
--- NOTE | 2021-11-06 14:43 | PC.NURSE ---
Blood glucose reading greater than 500. Dr. Carroll notified.
[2021-11-06 14:44] VITALS: BP 110/76; PULSE 91; RESP 20; TEMP 36; O2SAT 98
--- NOTE | 2021-11-06 14:48 | PC.NURSE ---
Pt covered in feces upon arrival to ER. Noted to have catheter tube with no drainage bag attached. Pt cleaned up and loera changed. Pt A&O x 3. Pt unkept. States catheter had not been changed since being discharged from ER. Pt states he made it to one Dr. parr.
[2021-11-06 15:00] LABS: Basophils Absolute Auto 0.02 K/mm3 (0.00-0.10); Basophils Percent Auto 0.3 % (0.0-1.0); Eosinophils Absolute Auto 0.01 K/mm3 (0.02-0.50); Eosinophils Percent Auto 0.2 % (1.0-6.0); Hematocrit 40.1 % (40.0-54.0); Hemoglobin 12.5 g/dL (14.0-18.0); Immature Granulocyte Absolute 0.07 K/mm3 (0.00-0.00); Immature Granulocyte Percent A 1.1 % (0.0-0.0); Lymphocytes Percent Auto 9.2 % (18.0-42.0); Mean Corpuscular HGB Conc 31.2 g/dL (32.0-36.0); Mean Corpuscular Hemoglobin 29.3 pg (27.0-31.0); Mean Corpuscular Volume 94.1 fL (78.0-102.0); Mean Platelet Volume 10.1 fl (8.7-11.0); Monocytes Absolute Auto 0.25 K/mm3 (0.10-0.90); Monocytes Percent Auto 3.8 % (2.0-11.0); Neutrophils Absolute Auto 5.6 K/mm3 (1.7-7.2); Neutrophils Percent Auto 85.4 % (50.0-70.0); Platelet Count Result 210 K/mm3 (150-420); Red Blood Count 4.26 M/mm3 (4.70-6.10); Red Cell Distribution Width 13.4 % (11.6-14.4); White Blood Count 6.5 K/mm3 (4.8-10.8)
[2021-11-06 15:01] LABS: Add Urine Microscopic? YES; Appearance Urine Sl Cloudy (Clear); Bilirubin Urine Negative (Negative); Blood Urine 1+ (Negative); Color Urine Light Yellow (Yellow); Glucose Urine UA 3+ (Negative); Ketones Urine Negative (Negative); Leukocyte Esterase Ur 1+ LEU/UL (Negative); Nitrate Urine Negative (Negative); Protein Urine Negative (Negative); Specific Grav Ur <= 1.005 (1.010-1.020); Urobilinogen Urine 0.2 mg/dL (0.2-1.0); pH Urine 5.5 (5.0-8.0)
--- NOTE | 2021-11-06 15:04 | ED.GENADULT ---
HPI - General Adult General Chief complaint: Unspecified Stated complaint: Ambulance Time Seen by Provider: 11/06/21 15:04 Source: patient, family and EMS Mode of arrival: EMS Limitations: no limitations History of Present Illness HPI narrative: this is a 56-year-old gentleman that presents via EMS from home after neighbor called EMS the patient was apparently sitting on his couch drinking soda, has been noncompliant with his medical regimen including his insulin, not taking insulin. The patient has a history of diabetes and is currently on insulin history of pulmonary embolism history of alcoholic pancreatitis CHF with an ejection fraction of 65 to 70%, has diastolic dysfunction, history of hypothyroidism. Patient has a sacral decubitus and has been complaining of body aches but currently there is no fever chills no shortness of breath no abdominal pain no chest pain no nausea vomiting. The patient appears emaciated apparently according to family not taking care of himself not eating appropriately, the patient does live at home. Patient has been incontinent of urine and bowel. Onset (ago): hour(s) Severity: moderate Related Data Allergies Allergy/AdvReac Type Severity Reaction Status Date / Time Penicillins Allergy Rash Verified 02/27/20 12:00 Review of Systems Review of Systems: All systems reviewed & are unremarkable except as noted in HPI and below PMFSH Past Medical History Medical History Diabetes 1.5, managed as type 2 Pancreatitis, alcoholic, acute Pulmonary embolism Family History Family History Sibling Depression Family history of pancreatic disease Mother Acute myocardial infarction, Onset Age: 60 Social History Social History Smoking packs per day: 1 Smoking cigarettes per day: 20.0 Years smoked: 22 Smoking pack-years: 22.00 Smoking status: Current some day smoker Tobacco type: cigarettes Alcohol intake: former Substance use: current Substance use type: methamphetamine Spiritual care concerns: No Exam Const: General: no acute distress and alert Orientation/consciousness: patient oriented x3 HENMT: Head: normal to inspection Eyes: Conjunctivae: conjunctivae normal Pupils: Equal, round and reactive pupils present Direct Ophthalmoscopy: no photophobia Neck: Neck: normal visual inspection, no lymphadenopathy and no meningeal signs Chest: Chest palpation & inspection: normal inspection of the chest Resp: Effort & Inspection: normal respiratory effort Auscultation: clear to auscultation bilaterally Cardio: Rate: regular rate Rhythm: regular rhythm GI: GI Palp: Yes Soft to palpation Percussion: Yes normal to percussion : Testes: Testes normal Urinary Catheter: Urinary Catheter: urine clear Back/Spine/Pelvis: Back: no CVA tenderness Skin: General skin exam: normal color Wounds: wounds noted Other: Sacral decubitus, patient appears emaciated sunken temples fen are wasting Neuro: General: patient oriented x3, moves all extremities and no focal motor deficits Extrem: General: normal to inspection and no pedal edema Psych: Mental Status: mental status grossly normal Affect: normal affect Attitude: cooperative Course Course Emergency Course: patient brought in by EMS with a history of diabetes, the patient according to himself and family has been noncompliant he was discharged from our facility early September and since then has only taking his insulin maybe once or twice, is noncompliant with his other medications not eating very well. The patient receiving IV fluids, chest x-ray, labs reviewed. talk to hospitalist which accepted the patient reviewed with skull chopper and will transferred to [facility] Intensive Care Unit. Vital Signs Vital signs: Vital Signs Temperature
[2021-11-06] MEDS: SODIUM CHLORIDE 0.9% IV 1,000 ML 999 ML IV CONT ×4 (15:05→18:01)
[2021-11-06 15:10] LABS: Bacteria Urine Trace /hpf; RBC Urine 0-2 /hpf (0-2); Squamous Epithelial Cell Urine None seen /hpf (Few); WBC Urine 16-20 /hpf (0-3)
[2021-11-06 15:20] LABS: Lactic Acid Reflex 7.2 mmol/L (0.4-2.0)
[2021-11-06 15:38] LABS: Alanine Aminotransferase 21 U/L (16-63); Albumin Level 3.2 g/dL (3.4-5.0); Alkaline Phosphatase 448 U/L (46-116); Anion Gap 13 mmol/L (8-16); Aspartate Amino Transferase 12 U/L (15-37); Bilirubin,Total 0.6 mg/dL (0.00-1.00); Blood Urea Nitrogen 11 mg/dL (7-18); Calcium 8.7 mg/dL (8.5-10.1); Carbon Dioxide 30 mmol/L (21-32); Chloride 81 mmol/L (98-108); Estimated CRCL calculation 24 ml/min; Estimated Glomerular Filt Rate 43; Magnesium 1.8 mg/dL (1.8-2.4); Phosphorus 2.7 mg/dL (2.6-4.7); Potassium 2.8 mmol/L (3.5-5.1); Sodium 124 mmol/L (136-145); Total Protein 6.7 g/dL (6.4-8.2)
--- NOTE | 2021-11-06 15:41 | PC.NURSE ---
Lab called with blood sugar greater than 800. Dr. Carroll notified.
[2021-11-06 15:42] LABS: CRP 17.9 mg/dL (0.0-0.9); Creatine Kinase 100 U/L (39-308); Glucose > 800 mg/dL (70-99); Osmolality Calculated 296 mOsm/kg (285-295)
[2021-11-06 15:43] LABS: Lipase 121 U/L (73-393); Thyroid Stimulating Hormone 1.36 uIU/mL (0.36-3.74)
[2021-11-06 15:59] LABS: Base Excess ABG 6.8 mmol/L (0-2); HCO3 ABG 30.4 mmol/L (23-29); Oxygen Content ABG 16.3 %vol (16.0-22.0); Oxygen Saturation ABG 96.6 % (95-97); Oxyhemoglobin 95.3 % (94-100); PCO2 ABG 39.2 mmHg (35-45); PO2 ABG 84.9 mmHg (80-90); Total Hemoglobin 12.1 g/dL (12.0-18.0); pH ABG 7.51 (7.35-7.45)
[2021-11-06 16:01] LABS: Device ROOM AIR; Modified Allen's Test Pass; Site Drawn LEFT RADIAL
[2021-11-06] MEDS: KCL 20 MEQ/SW 100 ML 100 ML 50 MEQ IVPB ×2 (16:10→18:16)
[2021-11-06 16:13] VITALS: BP 124/83; PULSE 79; RESP 20; O2SAT 99
[2021-11-06 16:16] LABS: Glucose Point of Care > 450 mg/dl (65-105)
--- NOTE | 2021-11-06 16:59 | PC.NURSE ---
Spoke to Monet to initiate transfer to [place].
[2021-11-06 17:00] VITALS: BP 107/91; PULSE 80; RESP 18; O2SAT 99
[2021-11-06 17:42] LABS: Alanine Aminotransferase 19 U/L (16-63); Albumin Level 2.7 g/dL (3.4-5.0); Alkaline Phosphatase 375 U/L (46-116); Anion Gap 7 mmol/L (8-16); Aspartate Amino Transferase 12 U/L (15-37); Bilirubin,Total 0.5 mg/dL (0.00-1.00); Blood Urea Nitrogen 9 mg/dL (7-18); Calcium 7.8 mg/dL (8.5-10.1); Carbon Dioxide 31 mmol/L (21-32); Chloride 93 mmol/L (98-108); Estimated CRCL calculation 33 ml/min; Estimated Glomerular Filt Rate > 60; Potassium 2.9 mmol/L (3.5-5.1); Sodium 131 mmol/L (136-145); Total Protein 5.8 g/dL (6.4-8.2)
--- NOTE | 2021-11-06 17:44 | PC.NURSE ---
Lab called with blood sugar of 1077. Dr. Carroll notified.
[2021-11-06 17:45] LABS: Glucose > 800 mg/dL (70-99); Osmolality Calculated 310 mOsm/kg (285-295)
[2021-11-06] MEDS: CLINDAMYCIN 600 MG/D5W 50 ML 600 MG/50 ML PIGGYBACK 100 MG IVPB (17:48)
[2021-11-06 17:57] LABS: Reflex Lactic Acid Yes or No Add Lactic
[2021-11-06 18:06] VITALS: BP 107/92; PULSE 72; RESP 18; O2SAT 100
--- NOTE | 2021-11-06 18:27 | PC.NURSE ---
Lindsey, in Radiology asked to push images over to Im[facility].
--- NOTE | 2021-11-06 18:33 | PC.NURSE ---
Patient accepted by TERESA García at [facility].
[2021-11-06 18:45] LABS: SARS-CoV-2 Ag Negative (Negative)
--- NOTE | 2021-11-06 18:50 | PC.NURSE ---
Phone report given to Gabriel, MANAGER ASSURANCE at [facility].
== END 2021-11-06 19:08 | disposition short-term general hospital (02) ==
PROVIDERS: Emergency Provider Emergency Medicine; PCP Internal Medicine
DX: E13.00 Other specified diabetes mellitus with hyperosmolarity without nonketotic hyperglycemic-hyperosmolar coma (NKHHC) (principal); Z86.711 Personal history of pulmonary embolism; F17.200 Nicotine dependence, unspecified, uncomplicated; R82.90 Unspecified abnormal findings in urine
CPT/HCPCS: 36415; 36600; 71045; 80053; 81001; 82550; 82805; 82948; 83605; 83690; 83735; 84100; 84443; 85025; 86140; 87040; 87086; 87147; 87186; 87426; 93005; 96361; 96365; 96366; 96368; 99285; C9803; J3480; J7030

== ENCOUNTER 2021-11-06 20:34 | Inpatient (IN) | payer OTHER, MEDICAID, SELFPAY ==
--- NOTE | ~2021-11-06 | XR_ITS ---
EXAMINATION: XR barium swallow modified DATE: 11/07/2021 15:13 INDICATION: Dysphagia. TECHNIQUE: The patient was given barium-containing material of multiple consistencies to swallow by t ashley speech pathologist while I performed fluoroscopy. Fluoroscopy exposure time was 0.9 minutes. The n umber of fluoroscopy images saved to the PACS was 1. Dose-area product was 0.549 Gy-cm^2. FINDINGS: There is reduced lingual movement was spillover from the base of the tongue into the pharynx with liq uids. There is reduced laryngeal elevation, reduced laryngeal adduction, and reduced tongue base retr action. There is severe vallecular and piriform sinus residue. There is laryngeal penetration with al l consistencies. There is aspiration with thin liquids. IMPRESSION: 1. Laryngeal penetration and aspiration. 2. Please refer to the speech therapy report for recommendations. Reviewed, dictated and finalized at location A. NILE CORRECTIONS OFFICER
--- NOTE | ~2021-11-06 | CT_ITS ---
EXAMINATION:CT diagnostic chest wo con DATE: 11/07/2021 09:33 INDICATION: Lung nodules. Weight loss. TECHNIQUE: Computed tomography (CT) of the chest was performed without intravenous contrast. Automate d exposure control and iterative reconstruction technique were employed. The dose-length product (DLP ) was 151.42 mGy-cm. COMPARISON: Chest CT 08/30/2021 FINDINGS: There is moderate emphysema. There are patchy ground glass opacities in the lower lobes, le ft upper lobe, right middle lobe, worst in right lower lobe, consistent with pneumonia. There are sma ll pleural effusions. The heart size is normal. No pericardial effusion. Calcifications in the pancre as are consistent with chronic pancreatitis. There is a paucity of body fat. There is a chronic compr ession fracture of T8 vertebral body. IMPRESSION: 1. Multifocal pneumonia. 2. Small pleural effusions. 3. Moderate emphysema. Reviewed, dictated and finalized at location A. OR ACCOUNT EXECUTIVE
--- NOTE | ~2021-11-06 | XR_ITS ---
EXAMINATION: XR barium swallow modified EXAM DATE: 11/10/2021 11:41 INDICATION: dysphagia TECHNIQUE: Modified barium esophagram was performed by speech pathologist with radiologist Dr. Delgado St present to administered fluoroscopy. Speech pathologist administered barium in varying consis tencies as per speech pathologist documentation. This was recorded on tape. There was total fluorosc opic time of 1.2 minutes. The DAP for this procedure was 0.4 Gycm2. A total of 4 images sent to PAC S from the exam. FINDINGS: Oral stage: Adequate function. Pharyngeal phase: Reduced laryngeal elevation, adduction, tongue base retraction, squeeze. Laryngeal penetration: Demonstrated. Aspiration: Demonstrated. Laryngeal sensitivity: Inconsistent. IMPRESSION: Aspiration demonstrated; Please refer to speech pathologist findings and specific feedi ng recommendations. Reviewed, dictated and finalized at location A. ROOM FOUNDRY LABORER IMPRESSION: Aspiration demonstrated; Please refer to speech pathologist findi ngs and specific feeding recommendations.
--- NOTE | ~2021-11-06 | XR_ITS ---
XR abdomen NG/feed tube insert INDICATION: Evaluate NG tube position. TECHNIQUE: Limited KUB perform for evaluating NG tube . COMPARISON: CT dated 11/07/2021 FINDINGS: NG tube tip in the stomach. Visualized bowel gas pattern is unremarkable. There is residua l contrast in the stomach and small bowel. Nonspecific bowel gas pattern. IMPRESSION: 1: NG tube tip in the stomach. Reviewed, dictated and finalized at location A. PE MARKER
--- NOTE | ~2021-11-06 | NM_ITS ---
EXAM: NM gastric emptying study DATE: 11/18/2021 16:24 CDT INDICATION: Possible gastroparesis TECHNIQUE: A gastric emptying study was performed using the methodology of Gunnar OLIVIA, et al. J Nucl Med 2007; 48:568-572. The patient was given a meal consisting of 2 scrambled eggs labeled with 0.981 mCi Tc-99m sulfur colloid, 2 slices of toast, two packages of jam, and approximately 120 mL of water . Simultaneous anterior and posterior 1-min images of the abdomen were obtained with the patient supi ne at multiple time points over a total period of 4 hours. The geometric mean of anterior and posteri or views was determined, and the percentage retention was calculated for each time point. COMPARISON: CT dated 11/07/2021. FINDINGS: Gastric retention of the radiotracer-labeled meal was 91%, 76%, and 66% at the 1-hour, 2-h our, and 4-hour time points, respectively. With this technique, apparent rapid gastric emptying is dick ggested by <30% gastric retention at 1 hour. Delayed gastric emptying is defined by gastric retention of >90% at 1 hour, >60% retention at 2 hours, or >10% retention at 4 hours. IMPRESSION: 1. Delayed gastric emptying. Reviewed, dictated and finalized at location B.
--- NOTE | ~2021-11-06 | CT_ITS ---
EXAMINATION: CT abdomen pelvis wo con DATE: 11/07/2021 02:59 INDICATION: Sacral decubitus ulcer. Elevated alkaline phosphatase. TECHNIQUE: Computed tomography (CT) of the abdomen and pelvis was performed without intravenous contr ast. Automated exposure control and iterative reconstruction technique were employed. Exam dose: 234 .56 mGy-cm total exam DLP. COMPARISON: 09/2021 MRI abdomen 08/30/2021 CT chest abdomen pelvis FINDINGS: There are new patchy infiltrates in the middle lobe, lingula and both lower lobes since consistent with bilateral pneumonia no pleural effusion. Normal heart size. Very limited body fat. 9 mm lateral segment left hepatic cyst. 5 mm medial segment left hepatic cyst. Normal splenic size. There are numerous pancreatic calcifications consistent with chronic pancreatitis. Normal caliber of the abdominal aorta. Approximately 2.4 cm right renal cyst is again noted. No urina ry tract calculus or hydroureteronephrosis is evident. There is a Ellison catheter and air within the urinary bladder. There is diffuse prominent bladder wall thickening. No bowel obstruction or intraperitoneal free air is detected. No suspicious osteolytic or osteoblastic lesions are noted. Transitional lumbosacral vertebra. IMPRESSION: Middle lobe, lingular and bilateral lower lobe infiltrates Hepatic cysts Chronic pancreatitis Right renal 2.4 cm cyst Bladder wall thickening, suggesting neurogenic bladder and/or cystitis; Ellison catheter in bladder Reviewed, dictated and finalized at Location A. Reviewed, dictated and finalized at location A. CENTER ENGINEER IMPRESSION: Middle lobe, lingular and bilateral lower lobe infiltrates Hepatic cysts Chronic pancreatitis Right renal 2.4 cm cyst Bladder wall thickening, suggesting neurogenic bladder and/or cystitis; Ellison c atheter in bladder
--- NOTE | ~2021-11-06 | XR_ITS ---
EXAMINATION: XR barium swallow modified EXAM DATE: 11/13/2021 09:50 INDICATION: Dysphagia TECHNIQUE: Modified barium esophagram was performed by speech pathologist with radiologist Dr. Delgado St present to administered fluoroscopy. Speech pathologist administered barium in varying consis tencies as per speech pathologist documentation. This was recorded on tape. There was total fluorosc opic time of 3.1. The DAP for this procedure was 1.5 Gycm2. A total of 1 images sent to PACS from t exam. FINDINGS: Oral stage: Adequate function. Pharyngeal phase: Vallecular residual. Laryngeal penetration: Trace, cleared. Aspiration: None. Laryngeal sensitivity: Inconsistent. IMPRESSION: Oral feedings recommended as per speech pathologist. Please refer to speech pathologist findings and specific feeding recommendations. Reviewed, dictated and finalized at location A. S OFFICE ADMINISTRATOR
[2021-11-06 20:00] VITALS: BP 106/53; PULSE 85; RESP 15; TEMP 36.5; O2SAT 100; BMI 14.1
[2021-11-06 20:19] VITALS: PULSE 80
--- NOTE | 2021-11-06 20:53 | ADMGEN ---
This patient, Shad Rodriguez, was admitted to Intensive Care Unit-10 on 11/06/21 at 2000. Patient/family oriented to hospital policies and general routines including ID bracelet, bed and alarms, visiting hours, pain management, procedures, bathroom and other care routines, personal items, smoking policy, room service/diet, and visiting hours. Information on how to activate the Rapid Response Team has been discussed. Patient/Family are encouraged to report perceived risks to care and to ask questions if they do not understand what they are told or what they should do.
--- NOTE | 2021-11-06 20:57 | PM.IMHP ---
H&P: HPI History of Present Illness Date/Time: 11/06/21 20:57 Chief Complaint: Failure to thrive Narrative: This is a 56-year-old male with past medical history significant for insulin-dependent diabetes mellitus, peripheral diabetic neuropathy, hypothyroidism chronic pancreatitis, alcohol dependence, was brought to the emergency room via EMS patient presented to with [facility]. Patient had been recently admitted on discharge in September from outside hospital as well apparently patient treated for acute on chronic anemia and cardiogenic shock and pneumonia. According to EMS patient was found sitting on his couch severely decondition and sitting on his feces and urine, had been drinking soda and noncompliant with medications patient lives at home with who has MS. UPON PRESENTATION TO OUTSIDE EMERGENCY ROOM PRELIMINARY WORKUP WAS SIGNIFICANT FOR BLOOD GLUCOSE OF 800. At the time of my visit patient denied any discomfort patient is a very poor historian and could not give me much detail about his disease process however has informed about his dramatic weight loss of roughly 100 lb. A chest x-ray was significant for bilateral infiltrates. A chemistry panel was significant for potassium of 2.9. Patient was transferred to our hospital for further evaluation ,management and treatment. Review of Systems Review of Systems: Generalized weakness Constitutional: Constitutional: Denies chills, Denies fever(s), Reports lethargy, Denies night sweats, Reports weakness and Reports weight loss Eyes: Eyes: Denies change in vision ENT: Denies dysphagia, Denies nasal congestion, Denies nasal discharge, Denies nasal obstruction and Denies odynophagia Cardiovascular: Cardiovascular: Denies chest pain, Denies pedal edema, Denies irregular heart rhythm, Denies leg edema, Denies lightheadedness, Denies radiating jaw, neck or arm pain, Denies palpitations and Denies dyspnea on exertion Respiratory: Respiratory: Denies cough and Denies dyspnea Gastrointestinal: Gastrointestinal: Denies abdominal pain, Denies dyspepsia, Denies heartburn, Reports diarrhea, Denies nausea and Denies vomiting Genitourinary: Genitourinary: Denies dysuria Musculoskeletal: Musculoskeletal: Reports back pain Integumentary/Breasts: Skin/Breast: Denies rash Neurologic: Denies dizziness, Denies focal weakness and Denies Sensory deficit (Neuro) Psychiatric: Psychiatric: Reports no additional psychiatric complaints and Reports as per HPI Endocrine: Endocrine: Denies cold intolerance, Denies heat intolerance, Reports polyphagia, Denies polydipsia, Denies polyuria and Denies palpitations Hematologic/Lymphatic: Hematologic/Lymphatic: Reports no additional hematologic/lymphatic complaints and Reports as per HPI Allergic/Immunologic: Allergic/Immunologic: Reports no additional allergic/immunologic complaints and Reports as per HPI [facility] Past Medical History Medical History (Updated 11/07/21 @ 01:49 by Damian Mendez MD) Diabetes 1.5, managed as type 2 Pancreatitis, alcoholic, acute Pulmonary embolism Family History Family History Sibling Depression Family history of pancreatic disease Mother Acute myocardial infarction, Onset Age: 60 Social History Social History Smoking packs per day: 1 Smoking cigarettes per day: 20.0 Years smoked: 22 Smoking pack-years: 22.00 Smoking status: Current every day smoker Tobacco type: cigarettes Alcohol intake: former Substance use: never Substance use type: methamphetamine Spiritual care concerns: No Meds Home Medications and Allergies Home Medications Medication Instructions Recorded Confirmed Type Humalog Mix 75-25(U-100)Insuln 10 unit SUBCUT BID #10 ml 09/15/21 11/06/21 Rx blood sugar diagnostic [Accu-Chek #100 ea 09/15/21 11/06/21 Rx Lynn Plus test strp] blood
[2021-11-06 21:02] LABS: Glucose Point of Care > 500 mg/dl (65-105)
[2021-11-06 21:12] LABS: Basophils Absolute Auto 0.1 K/mm3 (0.0-0.1); Basophils Percent Auto 0.9 % (0.2-1.2); Eosinophils Percent Auto 0.1 % (0-4.4); Hematocrit 36.1 % (42.0-52.0); Hemoglobin 12.6 g/dL (14.0-18.0); Immature Granulocyte Absolute 0.06 K/mm3 (0.00-0.031); Immature Granulocyte Percent A 0.8 % (0-0.5); Lymphocytes Absolute Auto 1.11 K/mm3 (0.9-3.2); Lymphocytes Percent Auto 14.4 % (18.3-44.2); Mean Corpuscular HGB Conc 34.9 g/dl (32-36); Mean Corpuscular Hemoglobin 29.6 pg (26-34); Mean Corpuscular Volume 84.7 fl (80-100); Mean Platelet Volume 9.5 fl (7.4-10.4); Monocytes Absolute Auto 0.3 K/mm3 (0.1-0.6); Neutrophils Absolute Auto 6.2 K/mm3 (1.3-6.7); Neutrophils Percent Auto 79.8 % (45.5-73.1); Platelet Count Result 171 k/mm3 (150-375); Red Blood Count 4.26 M/mm3 (4.6-6.20); Red Cell Distribution Width 12.8 % (11.5-14.5); White Blood Count 7.7 K/mm3 (4.5-10.0)
[2021-11-06 21:23] LABS: Lactic Acid Reflex 2.7 mmol/L (0.7-2.1)
[2021-11-06 21:26] LABS: Alanine Aminotransferase 19 U/L (4-50); Albumin Level 3.7 g/dL (3.5-5.1); Alkaline Phosphatase 434 U/L (38-126); Anion Gap 10 mmol/L (8-16); Aspartate Amino Transferase 24 U/L (17-59); Bilirubin,Total 0.6 mg/dL (0.2-1.3); Blood Urea Nitrogen 9 mg/dL (9-20); Carbon Dioxide 31 mmol/L (22-30); Chloride 94 mmol/L (98-107); Estimated CRCL calculation 87 ml/min; Estimated Glomerular Filt Rate > 60; Magnesium 1.7 mg/dL (1.6-2.3); Potassium 3.2 mmol/L (3.4-5.0); Sodium 135 mmol/L (137-145)
[2021-11-06 21:38] LABS: Glucose 745 mg/dL (65-110)
[2021-11-06] MEDS: KCL 20MEQ/0.9% SOD CHL 1,000 ML 50 ML IV CONT (21:53)
[2021-11-06] MEDS: POTASSIUM CHLORIDE INJ 40 MEQ in SODIUM CHLORIDE 0.9% IV 500 ML 65 MEQ IVPB (21:54)
[2021-11-06 22:00] VITALS: BP 106/75; PULSE 83; PULSE 87; RESP 15; O2SAT 100
[2021-11-06] MEDS: INSULIN HUMAN REGULAR (*BKC) 100 UNITS in SODIUM CHLORIDE 0.9% IV 99 ML 13.7 UNITS IV CONT (22:11)
[2021-11-06] MEDS: AZTREONAM 2 GM in SODIUM CHLORIDE 0.9% IV 100 ML 200 ML IVPB (22:16)
[2021-11-06 23:33] LABS: Glucose Point of Care 466 mg/dl (65-105)
[2021-11-07] VITALS (12 sets, daily range): BP systolic 88–106; BP diastolic 62–76; PULSE 78–100; RESP 13–24; TEMP 36.9–37.4; O2SAT 90–100; BMI 14.1
[2021-11-07 00:28] LABS: Glucose Point of Care 310 mg/dl (65-105)
[2021-11-07 03:06] LABS: Anion Gap 4 mmol/L (8-16); Blood Urea Nitrogen 7 mg/dL (9-20); Calcium 7.9 mg/dL (8.4-10.2); Carbon Dioxide 34 mmol/L (22-30); Chloride 100 mmol/L (98-107); Estimated CRCL calculation 87 ml/min; Estimated Glomerular Filt Rate > 60; Glucose 131 mg/dL (65-110); Potassium 2.8 mmol/L (3.4-5.0); Sodium 138 mmol/L (137-145)
[2021-11-07] MEDS: MAGNESIUM SULF 2 GM/WATER 50ML 2 GM/50 ML BAG IVPB (03:47)
[2021-11-07] MEDS: AZTREONAM 2 GM in SODIUM CHLORIDE 0.9% IV 100 ML 200 ML IVPB ×3 (05:40→23:05)
[2021-11-07] MEDS: LEVOTHYROXINE SODIUM 75 MCG TABLET PO (05:41)
[2021-11-07 06:00] LABS: Potassium 3.1 mmol/L (3.4-5.0)
--- NOTE | 2021-11-07 08:21 | WPDCNINT ---
Assessment and Plan Assessment and plan (1) Sepsis: Code(s): A41.9 - Sepsis, unspecified organism Status: Acute Assessment and Plan: secondary to pneumonia and UTI lactic acid level has improved patient's blood pressure has been adequate and he has not required any vasopressors till now blood and urine cultures have been sent continue IV fluids continue broad-spectrum antibiotics in the form of vancomycin aztreonam and add Flagyl (2) Pneumonia: Code(s): J18.9 - Pneumonia, unspecified organism Status: Acute Assessment and Plan: aspiration versus community-acquired add Flagyl to broad-spectrum antibiotics that were started on admission patient is on vancomycin aztreonam and Flagyl cultures have been sent consult speech therapy for swallow evaluation (3) UTI (urinary tract infection): Code(s): N39.0 - Urinary tract infection, site not specified Status: Acute Assessment and Plan: see above (4) Hyperosmolar hyperglycemic state (HHS): Code(s): E11.00 - Type 2 diabetes mellitus with hyperosmolarity without nonketotic hyperglycemic-hyperosmolar coma (NKHHC); E11.65 - Type 2 diabetes mellitus with hyperglycemia Status: Acute Assessment and Plan: Patient presented with pictures consistent with HHS with high blood sugars, dehydration but normal anion gap patient was resuscitated with IV fluids and IV insulin infusion IV insulin has been weaned off and patient will be transition to subcutaneous insulin now continue IV fluids were cut down the rate (5) Diabetes 1.5, managed as type 2: Code(s): E13.9 - Other specified diabetes mellitus without complications Status: Acute Assessment and Plan: consult breastfeeding educator check HbA1c (6) Decubitus skin ulcer: Code(s): L89.90 - Pressure ulcer of unspecified site, unspecified stage Status: Acute Assessment and Plan: patient was evaluated by wound care and recommendations were ordered (7) Bladder outlet obstruction: Code(s): N32.0 - Bladder-neck obstruction Status: Acute Assessment and Plan: Ellison was replaced (8) Pulmonary embolism: Code(s): I26.99 - Other pulmonary embolism without acute cor pulmonale Status: Acute Assessment and Plan: resume anticoagulation. Start Lovenox at this time CT C/A/P 08/30/2021 IMPRESSION: 1. Pulmonary embolism in the right lower lobar at the origin of the right middle lobar pulmonary arteries. Dr. Hassan discussed these findings with Dr. Farris at 6:05 PM. 2. Anasarca including small right and very small left pleural effusions, small amount of ascites in the pelvis, diffuse body wall edema as well as edema throughout the fat of the mediastinum and retroperitoneum which is of indeterminate etiology. 3. 4 mm nodule along the periphery of otherwise thin walled cavitary lesion in the left lower lobe at the site of a prior part solid nodule 2 years prior suggesting sequela of prior infection. Recommend 12 month follow-up low-dose noncontrast chest CT. 4. Mild to moderate emphysema. 5. Multiple dystrophic calcifications throughout the pancreas with some parenchymal atrophy which is new since the prior study likely sequela of intervening chronic pancreatitis. Correlate with clinical history. 6. Prominent diffuse bladder wall thickening which could be due to chronic outlet obstruction, cystitis either acute or chronic or malignancy. (9) Severe muscle deconditioning: Code(s): R29.898 - Other symptoms and signs involving the musculoskeletal system Status: Acute Assessment and Plan: nutritional supplements PT OT consult check prealbumin level add pancreatic enzyme replacement check CT chest to evaluate for lung masses patient has history of nodules (10) Hypothyroidism: Code(s): E03.9 - Hypothyroidism, unspecified Status: Acute Assessment and Plan: resume
[2021-11-07 08:22] LABS: Glucose Point of Care 230 mg/dl (65-105)
[2021-11-07 08:55] LABS: Hemoglobin A1C > 14.0 % (<5.7)
[2021-11-07 09:06] LABS: Prealbumin 3.5 mg/dL (17.6-36.0)
[2021-11-07] MEDS: POTASSIUM CHLORIDE INJ 40 MEQ in SODIUM CHLORIDE 0.9% IV 500 ML 130 MEQ IVPB (09:16)
[2021-11-07 09:32] LABS: Troponin I 0.014 ng/mL (0.000-0.034)
[2021-11-07] MEDS: metroNIDAZOLE 500 MG/ISO 100ML 500 MG/100 ML BAG 100 MG IVPB ×3 (09:57→23:53)
[2021-11-07] MEDS: ENOXAPARIN 60 MG/0.6 ML SYRINGE 45 MG SUB-Q ×2 (09:59→19:56)
[2021-11-07] MEDS: INSULIN ASPART (*BKC) 100 UNITS/ML SUB-Q (10:01)
[2021-11-07] MEDS: INSULIN GLARGINE (*BKC) 100 UNITS/ML 10 UNITS SUB-Q (10:02)
[2021-11-07 13:50] LABS: Glucose Point of Care 120 mg/dl (65-105)
--- NOTE | 2021-11-07 15:08 | PCPTNOTE ---
Attempted physical therapy evaluation, patient getting MBS at this time.
[2021-11-07 15:12] LABS: Troponin I < 0.012 ng/mL (0.000-0.034)
--- NOTE | 2021-11-07 15:28 | PCSTNOTE ---
Please refer to the Bedside Swallow Evaluation in the EMR. Please note, silent aspiration cannot be ruled out at bedside.
--- NOTE | 2021-11-07 15:28 | PCSTNOTE ---
Please refer to the Modified Barium Swallow Evaluation in the EMR.
--- NOTE | 2021-11-07 15:45 | PM.IMPN ---
Progress Note: A&P Assessment and Plan (1) Sepsis: Code(s): A41.9 - Sepsis, unspecified organism Status: Acute Assessment and Plan: Patient with lactic acid level of 7.2 and soft blood pressure. Secondary to pneumonia and UTI. Urine culture pending. Blood culture growing Gram-negative bacilli (1of4). Lactic acid level has improved. Blood pressure is still soft at times. Continue broad-spectrum IV antibiotics. Follow-up on blood culture results. Narrow antibiotics when able. (2) Pneumonia: Code(s): J18.9 - Pneumonia, unspecified organism Status: Acute Assessment and Plan: Chest x-ray on admission concerning for pneumonia. CT of the chest today showing multifocal pneumonia and small pleural effusions. Aspiration versus community-acquired pneumonia being considered. Discussed with speech therapy today. Modified barium swallow was recommended and this was ordered. Continue broad-spectrum IV antibiotics. Follow-up on culture results. Check sputum. Check urine antigens. Check MRSA nasal swab. Follow-up on modified barium swallow results. (3) Hyperosmolar hyperglycemic state (HHS): Code(s): E11.00 - Type 2 diabetes mellitus with hyperosmolarity without nonketotic hyperglycemic-hyperosmolar coma (NKHHC); E11.65 - Type 2 diabetes mellitus with hyperglycemia Status: Acute Assessment and Plan: Patient presents with picture consistent with HHS with high blood sugars, dehydration but normal anion gap. Patient was resuscitated with IV fluids and IV insulin infusion. Glucose became better controlled. Etiology is due to noncompliance with his insulin. Patient has been transition to subcutaneous insulin now. (4) UTI (urinary tract infection): Code(s): N39.0 - Urinary tract infection, site not specified Status: Acute Assessment and Plan: UA noted. Urine culture pending. Follow-up on blood and urine cultures (5) Diabetes 1.5, managed as type 2: Code(s): E13.9 - Other specified diabetes mellitus without complications Status: Acute Assessment and Plan: A1c greater than 14. Glucose reviewed on 11/07 Glucose better controlled. Continue AccuCheks covering with sliding scale. Hypoglycemia protocol available as needed. Continue current medications. (6) Decubitus skin ulcer: Code(s): L89.90 - Pressure ulcer of unspecified site, unspecified stage Status: Acute Assessment and Plan: Patient with multiple areas of skin breakdown related to his chronic bedrest and malnutrition patient has been evaluated by wound care and recommendations placed continue current wound care. These wounds were evident back in September as well. (7) Bladder outlet obstruction: Code(s): N32.0 - Bladder-neck obstruction Status: Acute Assessment and Plan: Patient was hospitalized in September is noted to have bladder outlet obstruction. Flomax was started. Ellison catheter secured. Patient was discharged on September 15 with a Ellison catheter but I do not believe he followed up with the urologist as instructed. Ellison catheter has been changed out here. Check PSA. (8) Pulmonary embolism: Code(s): I26.99 - Other pulmonary embolism without acute cor pulmonale Status: Acute Assessment and Plan: CT Ch/A/P 08/30/2021 showing PE in the right lower lobe. In September, patient was on Xarelto but switched to Eliquis. Lovenox started here at therapeutic dose. Resume Eliquis patient is stable. (9) Hypothyroidism: Code(s): E03.9 - Hypothyroidism, unspecified Status: Acute Assessment and Plan: TSH normal. Surprising since patient has been noncompliant with his medications. Continue levothyroxine. (10) Chest pain: Code(s): R07.9 - Chest pain, unspecified Status: Acute Assessment and Plan: Patient denies chest pain today. Troponins negative x2. EKG reviewed and relat
[2021-11-07] MEDS: DEXTROSE 50% 25 GM/50 ML SYRINGE IV PUSH ×3 (17:52→23:51)
[2021-11-07] MEDS: KCL 20MEQ/0.9% SOD CHL 1,000 ML 50 ML IV CONT (17:52)
[2021-11-07 17:55] LABS: Glucose Point of Care 52 mg/dl (65-105)
[2021-11-07] MEDS: FERROUS SULFATE 324 MG TABLET PO (18:10)
[2021-11-07] MEDS: GABAPENTIN 400 MG CAPSULE PO (18:11)
[2021-11-07] MEDS: METOCLOPRAMIDE HCL INJ 10 MG/2 ML VIAL 5 MG IV PUSH ×2 (18:12→23:12)
[2021-11-07 18:29] LABS: Glucose Point of Care 94 mg/dl (65-105)
--- NOTE | 2021-11-07 19:20 | PC.NURSE ---
This patient, Shad Rodriguez, was transferred to [[id number] ] on 11/07/21 at 1900. Personal belongings sent with patient. Report given to [Marcin RAMIREZ ]. Appropriate documentation sent with patient.
[2021-11-07] MEDS: THIAMINE HCL 100 MG TABLET FEED TUBE (19:57)
[2021-11-07 20:14] LABS: Glucose Point of Care 53 mg/dl (65-105)
[2021-11-07] MEDS: LIPASE/AMYLASE/PROTEASE 12,000 UNITS CAP 1 CAP PO (20:38)
[2021-11-07 21:15] LABS: Troponin I < 0.012 ng/mL (0.000-0.034)
--- NOTE | 2021-11-07 23:25 | PC.NURSE ---
Reported critical to pt nurse which was received via phone from the laboratory.
[2021-11-07 23:55] LABS: Glucose Point of Care 46 mg/dl (65-105)
[2021-11-08] VITALS (16 sets, daily range): BP systolic 81–98; BP diastolic 43–65; PULSE 45–89; RESP 14–18; TEMP 36.1–36.8; O2SAT 96–100
[2021-11-08 00:29] LABS: Glucose Point of Care 156 mg/dl (65-105)
[2021-11-08 04:25] LABS: Glucose Point of Care 120 mg/dl (65-105)
[2021-11-08] MEDS: AZTREONAM 2 GM in SODIUM CHLORIDE 0.9% IV 100 ML 200 ML IVPB ×2 (05:08→16:30)
[2021-11-08] MEDS: METOCLOPRAMIDE HCL INJ 10 MG/2 ML VIAL 5 MG IV PUSH ×4 (05:08→23:04)
[2021-11-08] MEDS: LEVOTHYROXINE SODIUM 75 MCG TABLET PO (05:09)
[2021-11-08] MEDS: LIPASE/AMYLASE/PROTEASE 12,000 UNITS CAP 1 CAP PO ×3 (05:12→21:07)
[2021-11-08 05:48] LABS: Hematocrit 31.6 % (42.0-52.0); Hemoglobin 10.5 g/dL (14.0-18.0); Immature Platelet Fraction Pct 3.1 % (0.9-11.2); Mean Corpuscular HGB Conc 33.2 g/dl (32-36); Mean Corpuscular Hemoglobin 29.7 pg (26-34); Mean Corpuscular Volume 89.5 fl (80-100); Mean Platelet Volume 9.7 fl (7.4-10.4); Platelet Count Result 156 k/mm3 (150-375); Red Blood Count 3.53 M/mm3 (4.6-6.20); Red Cell Distribution Width 12.8 % (11.5-14.5); White Blood Count 7.8 K/mm3 (4.5-10.0)
[2021-11-08 05:53] LABS: Alanine Aminotransferase 14 U/L (4-50); Albumin Level 2.8 g/dL (3.5-5.1); Alkaline Phosphatase 387 U/L (38-126); Anion Gap 0 mmol/L (8-16); Aspartate Amino Transferase 39 U/L (17-59); Bilirubin,Total 0.5 mg/dL (0.2-1.3); Blood Urea Nitrogen 11 mg/dL (9-20); Calcium 7.9 mg/dL (8.4-10.2); Carbon Dioxide 31 mmol/L (22-30); Chloride 104 mmol/L (98-107); Estimated CRCL calculation 104 ml/min; Estimated Glomerular Filt Rate > 60; Glucose 76 mg/dL (65-110); Magnesium 1.9 mg/dL (1.6-2.3); Potassium 3.5 mmol/L (3.4-5.0); Sodium 135 mmol/L (137-145)
[2021-11-08 05:55] LABS: Phosphorus 1.3 mg/dL (2.5-4.5)
[2021-11-08 06:01] LABS: INR 1.4; Prothrombin Time 16.3 Seconds (11.1-14.7)
[2021-11-08 06:02] LABS: Partial Thromboplastin Time 40.8 SECONDS (22.3-36.8)
[2021-11-08 06:24] LABS: Prostate Specific Antigen 0.4 ng/mL (< OR = 4.0)
[2021-11-08 06:30] LABS: Vitamin D 25 Hydroxy < 12.8 ng/mL
[2021-11-08 07:00] LABS: Folic Acid 9.2 ng/mL (2.76->20)
--- NOTE | 2021-11-08 07:00 | ECG_ITS ---
Measurements Intervals [place] Rate: 70 P: 78 NV: 110 QRS: 87 QRSD: 91 T: 90 QT: 410 QTc: 445 Interpretive Statements SINUS RHYTHM WITH SHORT NV INTERVAL WITH PREMATURE VENTRICULAR CONTRACTION LOW QRS VOLTAGE IN EXTREMITY LEADS [QRS DEFLECTION < 0.5 mV IN LIMB LEADS] PATTERN CONSISTENT WITH PULMONARY DISEASE COMPARED TO ECG 11/06/2021 14:54:45 NO SIGNIFICANT CHANGES Electronically Signed On 11-08-2021 14:29:00 SKIN LAP BONDER by Carter Guzman M.D.
[2021-11-08 07:45] LABS: Glucose Point of Care 75 mg/dl (65-105)
[2021-11-08] MEDS: ENOXAPARIN 60 MG/0.6 ML SYRINGE 45 MG SUB-Q ×2 (08:19→20:17)
[2021-11-08] MEDS: SODIUM PHOSPHATE 20 MM in DEXTROSE 5% IN WATER 250 ML 50 MM IVPB (08:19)
[2021-11-08] MEDS: THIAMINE HCL 100 MG TABLET FEED TUBE (08:20)
[2021-11-08] MEDS: CALCIUM CARBONATE (TUMS) 500 MG (200 MG ELEMENTAL) 250 MG FEED TUBE ×3 (08:20→16:35)
[2021-11-08] MEDS: GABAPENTIN 400 MG CAPSULE PO (08:20)
[2021-11-08] MEDS: FOLIC ACID 1 MG TABLET FEED TUBE (08:21)
[2021-11-08] MEDS: FERROUS SULFATE 324 MG TABLET BY MOUTH ×3 (08:22→16:35)
[2021-11-08] MEDS: metroNIDAZOLE 500 MG/ISO 100ML 500 MG/100 ML BAG 100 MG IVPB ×2 (08:28→17:38)
[2021-11-08] MEDS: ERGOCALCIFEROL SOLN 8,000 UNITS/ML 60 ML BOTTLE 50000 UNITS FEED TUBE (09:53)
[2021-11-08 10:43] LABS: Vancomycin Trough 10.6 ug/mL (10.0-20.0)
--- NOTE | 2021-11-08 10:56 | PM.IMPN ---
Progress Note: A&P Assessment and Plan (1) Sepsis: Code(s): A41.9 - Sepsis, unspecified organism Status: Acute Assessment and Plan: Patient with lactic acid level of 7.2 and soft blood pressure. Secondary to pneumonia and UTI. Urine culture growing Klebsiella that is relatively rodriguez-sensitive. Blood cultures growing Gram-negative bacilli (3of4) suspect same organism. Lactic acid level has improved. Blood pressure is still soft at times so will increase IV fluids and add Midodrine. Continue broad-spectrum IV antibiotics but narrow abx when able. Follow-up on blood culture results. (2) Pneumonia: Code(s): J18.9 - Pneumonia, unspecified organism Status: Acute Assessment and Plan: Chest x-ray on admission concerning for pneumonia. CT of the chest today showing multifocal pneumonia and small pleural effusions. Aspiration versus community-acquired pneumonia. Discussed with speech therapy and MBS was recommended. Patient failed his modified barium swallow. Unlikely that he is going to be able to swallow any time soon and as such NGT was placed 3/4 and TF started. He is toelrating this well. More likely aspiration PNA. Continue current abx. ST/PT/OT ordered. (3) Hyperosmolar hyperglycemic state (HHS): Code(s): E11.00 - Type 2 diabetes mellitus with hyperosmolarity without nonketotic hyperglycemic-hyperosmolar coma (NKHHC); E11.65 - Type 2 diabetes mellitus with hyperglycemia Status: Acute Assessment and Plan: Patient presents with picture consistent with HHS with high blood sugars, dehydration but normal anion gap. Patient was resuscitated with IV fluids and IV insulin infusion. Glucose became better controlled and changed to Lantus but now having hypoglycemia despite being on tube feedings. Stop Lantus. Continue sliding scale protocol. (4) UTI (urinary tract infection): Code(s): N39.0 - Urinary tract infection, site not specified Status: Acute Assessment and Plan: UA noted. Urine culture growing Klebsiella. As above. (5) Diabetes 1.5, managed as type 2: Code(s): E13.9 - Other specified diabetes mellitus without complications Status: Acute Assessment and Plan: A1c>14. Glucose reviewed on 11/08 Glucose too low at this time. Lantus was stopped. Continue AccuCheks covering with sliding scale. Hypoglycemia protocol available as needed. Continue close monitoring. (6) Decubitus skin ulcer: Code(s): L89.90 - Pressure ulcer of unspecified site, unspecified stage Status: Acute Assessment and Plan: Patient with multiple areas of skin breakdown related to his chronic bedrest and malnutrition. Patient has been evaluated by wound care and recommendations placed. Continue current wound care. These wounds were evident back in September as well. (7) Bladder outlet obstruction: Code(s): N32.0 - Bladder-neck obstruction Status: Acute Assessment and Plan: Patient was hospitalized in September and noted to have bladder outlet obstruction. Flomax was started. Ellison catheter secured. Patient was discharged on September 15 with a Ellison catheter but I do not believe he followed up with the urologist as instructed. Ellison catheter has been changed out here. PSA normal. Flomax on hold due to soft BP and that he can not take this by NGT. (8) Pulmonary embolism: Code(s): I26.99 - Other pulmonary embolism without acute cor pulmonale Status: Acute Assessment and Plan: CT Ch/A/P 08/30/2021 showing PE in the right lower lobe. In September, patient was on Xarelto but switched to Eliquis. Lovenox started here at therapeutic dose. Resume Eliquis when patient is more stable. (9) Hypothyroidism: Code(s): E03.9 - Hypothyroidism, unspecified Status: Acute Assessment and Plan: TSH normal. Surprising since patient has been noncompliant with his medications. Continue levothyroxine
[2021-11-08] MEDS: MIDODRINE HCL 2.5 MG TABLET 5 MG FEED TUBE ×3 (11:17→16:35)
[2021-11-08 11:25] LABS: Glucose Point of Care 115 mg/dl (65-105)
[2021-11-08] MEDS: GABAPENTIN 400 MG CAPSULE FEED TUBE ×2 (13:54→16:35)
[2021-11-08 16:22] LABS: Glucose Point of Care 226 mg/dl (65-105)
[2021-11-08] MEDS: SODIUM CHLORIDE 0.9% IV 1,000 ML 75 ML IV CONT (16:30)
[2021-11-08] MEDS: INSULIN ASPART (*BKC) 100 UNITS/ML SUB-Q (16:36)
[2021-11-08 20:24] LABS: Glucose Point of Care 182 mg/dl (65-105)
[2021-11-08] MEDS: AZTREONAM 2 GM in SODIUM CHLORIDE 0.9% IV 100 ML IVPB (21:08)
[2021-11-08 23:11] LABS: Glucose Point of Care 174 mg/dl (65-105)
[2021-11-08] MEDS: SODIUM CHLORIDE 0.9% IV 250 ML 999 ML IV CONT (23:40)
[2021-11-09] VITALS (11 sets, daily range): BP systolic 80–92; BP diastolic 48–61; PULSE 45–66; RESP 14–18; TEMP 36.2–36.8; O2SAT 95–100
[2021-11-09] MEDS: metroNIDAZOLE 500 MG/ISO 100ML 500 MG/100 ML BAG 100 MG IVPB ×3 (01:10→16:48)
[2021-11-09 04:23] LABS: Glucose Point of Care 228 mg/dl (65-105)
[2021-11-09] MEDS: INSULIN ASPART (*BKC) 100 UNITS/ML SUB-Q ×3 (04:31→16:45)
[2021-11-09] MEDS: WATER FOR IRRIGATION, STERILE 1,000 ML BOTTLE 1000 ML (04:50)
[2021-11-09] MEDS: LIPASE/AMYLASE/PROTEASE 12,000 UNITS CAP 1 CAP PO ×3 (05:31→20:11)
[2021-11-09] MEDS: LEVOTHYROXINE SODIUM 75 MCG TABLET FEED TUBE (05:31)
[2021-11-09] MEDS: METOCLOPRAMIDE HCL INJ 10 MG/2 ML VIAL 5 MG IV PUSH ×3 (05:33→17:02)
[2021-11-09] MEDS: AZTREONAM 2 GM in SODIUM CHLORIDE 0.9% IV 100 ML IVPB (05:34)
[2021-11-09 07:04] LABS: Hematocrit 30.9 % (42.0-52.0); Hemoglobin 10.2 g/dL (14.0-18.0); Mean Corpuscular Hemoglobin 29.4 pg (26-34); Mean Platelet Volume 8.8 fl (7.4-10.4); Platelet Count Result 128 k/mm3 (150-375); Red Blood Count 3.47 M/mm3 (4.6-6.20); White Blood Count 7.3 K/mm3 (4.5-10.0)
[2021-11-09 07:14] LABS: Alanine Aminotransferase 13 U/L (4-50); Albumin Level 2.6 g/dL (3.5-5.1); Alkaline Phosphatase 391 U/L (38-126); Anion Gap 2 mmol/L (8-16); Aspartate Amino Transferase 36 U/L (17-59); Bilirubin,Total 0.3 mg/dL (0.2-1.3); Blood Urea Nitrogen 16 mg/dL (9-20); Calcium 7.9 mg/dL (8.4-10.2); Carbon Dioxide 21 mmol/L (22-30); Chloride 111 mmol/L (98-107); Estimated CRCL calculation 87 ml/min; Estimated Glomerular Filt Rate > 60; Glucose 239 mg/dL (65-110); Magnesium 1.8 mg/dL (1.6-2.3); Phosphorus 2.3 mg/dL (2.5-4.5); Potassium 3.7 mmol/L (3.4-5.0); Sodium 134 mmol/L (137-145)
[2021-11-09 07:55] LABS: Glucose Point of Care 227 mg/dl (65-105)
[2021-11-09] MEDS: MIDODRINE HCL 10 MG TABLET FEED TUBE ×3 (08:42→16:46)
[2021-11-09] MEDS: GABAPENTIN 400 MG CAPSULE FEED TUBE ×3 (08:42→16:46)
[2021-11-09] MEDS: POTASSIUM/PHOSPHORUS/SODIUM 1.5 GM PACKET 1 PACKET FEED TUBE (08:42)
[2021-11-09] MEDS: FOLIC ACID 1 MG TABLET FEED TUBE (08:42)
[2021-11-09] MEDS: THIAMINE HCL 100 MG TABLET FEED TUBE (08:42)
[2021-11-09] MEDS: FERROUS SULFATE 324 MG TABLET BY MOUTH ×3 (08:42→16:46)
[2021-11-09] MEDS: CALCIUM CARBONATE (TUMS) 500 MG (200 MG ELEMENTAL) 250 MG FEED TUBE ×3 (08:43→16:47)
[2021-11-09] MEDS: ERGOCALCIFEROL SOLN 8,000 UNITS/ML 60 ML BOTTLE 50000 UNITS FEED TUBE (08:43)
[2021-11-09] MEDS: ENOXAPARIN 60 MG/0.6 ML SYRINGE 45 MG SUB-Q ×2 (08:43→20:11)
[2021-11-09] MEDS: traMADol HCL (*CRX) 50 MG TABLET FEED TUBE (10:13)
[2021-11-09 11:34] LABS: Glucose Point of Care 185 mg/dl (65-105)
--- NOTE | 2021-11-09 11:58 | PM.IMPN ---
Progress Note: A&P Assessment and Plan (1) Sepsis: Code(s): A41.9 - Sepsis, unspecified organism Status: Acute Assessment and Plan: Patient with lactic acid level of 7.2 and soft blood pressure. Now with septicemia with shock with positive blood cultures and HoTN. Secondary to pneumonia and UTI. Urine culture growing Klebsiella that is relatively rodriguez-sensitive. Blood cultures also growing Klebsiella pneumoniae (3of4). Lactic acid level has improved. Change to Levaquin. Stop Vanco. Continue Flagyl for aspiration PNA coverage. (2) Pneumonia: Code(s): J18.9 - Pneumonia, unspecified organism Status: Acute Assessment and Plan: Chest x-ray on admission concerning for pneumonia. CT of the chest today showing multifocal pneumonia and small pleural effusions. Aspiration versus community-acquired pneumonia. Discussed with speech therapy and MBS was recommended. Patient failed his modified barium swallow. Unlikely that he is going to be able to swallow any time soon and as such NGT was placed on / and TF started. He is tolerating this well. More likely aspiration PNA. BCx positive but related to urinary source. Continue ST/PT/OT. Adjust abx. (3) Hypotension: Code(s): I95.9 - Hypotension, unspecified Status: Acute Assessment and Plan: Blood pressure was stable on admission but has dropped since. Suspect related to bacteremia. Not on medications that would lower BP. No narcotics listed. BP is still soft at times so will increase Midodrine. Continue IV fluids and wean off as BP allows (4) Dysphagia: Code(s): R13.10 - Dysphagia, unspecified Status: Acute Assessment and Plan: As above. Patient here for PNA felt to be aspiration. He failed MBS and now has NGT in place. Repeat swallow evaluation later this week. Speech following. (5) Hyperosmolar hyperglycemic state (HHS): Code(s): E11.00 - Type 2 diabetes mellitus with hyperosmolarity without nonketotic hyperglycemic-hyperosmolar coma (NKHHC); E11.65 - Type 2 diabetes mellitus with hyperglycemia Status: Acute Assessment and Plan: Patient presents with picture consistent with HHS with high blood sugars, dehydration but normal anion gap. Patient was resuscitated with IV fluids and IV insulin infusion. Glucose became better controlled and changed to Lantus. Lantus held due to low glucose. Glucose better with TF so add back low dose Lantus. Continue sliding scale protocol. (6) UTI (urinary tract infection): Code(s): N39.0 - Urinary tract infection, site not specified Status: Acute Assessment and Plan: UA noted. Urine culture growing Klebsiella. As above. (7) Diabetes 1.5, managed as type 2: Code(s): E13.9 - Other specified diabetes mellitus without complications Status: Acute Assessment and Plan: A1c>14. Glucose reviewed on 11/09 Glucose too low so Lantus was stopped. Glucose higher now. Continue AccuCheks covering with sliding scale. Hypoglycemia protocol available as needed. Add low dose lantus. Continue close monitoring. (8) Decubitus skin ulcer: Code(s): L89.90 - Pressure ulcer of unspecified site, unspecified stage Status: Acute Assessment and Plan: Patient with multiple areas of skin breakdown related to his chronic bedrest and malnutrition. Patient has been evaluated by wound care and recommendations placed. Continue current wound care. These wounds were evident back in September as well. (9) Bladder outlet obstruction: Code(s): N32.0 - Bladder-neck obstruction Status: Acute Assessment and Plan: Patient was hospitalized in September and noted to have bladder outlet obstruction. Flomax was started. Ellison catheter secured. Patient was discharged on September 15 with a Ellison catheter but I do not believe he followed up with the urologist as instructed. Ellison catheter has been changed out here. NILE
[2021-11-09] MEDS: SODIUM CHLORIDE 0.9% IV 1,000 ML 75 ML IV CONT (12:33)
[2021-11-09] MEDS: INSULIN GLARGINE (*BKC) 100 UNITS/ML SUB-Q (12:40)
[2021-11-09 16:34] LABS: Glucose Point of Care 245 mg/dl (65-105)
[2021-11-09 20:09] LABS: Glucose Point of Care 173 mg/dl (65-105)
[2021-11-09 20:43] LABS: Glucose Point of Care 295 mg/dl (65-105)
[2021-11-10] VITALS (12 sets, daily range): BP systolic 89–101; BP diastolic 55–60; PULSE 47–88; RESP 16–20; TEMP 36.4–36.6; O2SAT 94–100
[2021-11-10] MEDS: metroNIDAZOLE 500 MG/ISO 100ML 500 MG/100 ML BAG 100 MG IVPB ×3 (00:47→17:25)
[2021-11-10] MEDS: METOCLOPRAMIDE HCL INJ 10 MG/2 ML VIAL 5 MG IV PUSH ×3 (00:47→12:30)
[2021-11-10] MEDS: INSULIN ASPART (*BKC) 100 UNITS/ML SUB-Q ×3 (00:54→12:55)
[2021-11-10 00:55] LABS: Glucose Point of Care 221 mg/dl (65-105)
[2021-11-10] MEDS: SODIUM CHLORIDE 0.9% IV 1,000 ML 75 ML IV CONT ×2 (02:05→17:25)
[2021-11-10] MEDS: traMADol HCL (*CRX) 50 MG TABLET FEED TUBE ×2 (04:57→17:25)
[2021-11-10] MEDS: LEVOTHYROXINE SODIUM 75 MCG TABLET FEED TUBE (05:00)
[2021-11-10] MEDS: LIPASE/AMYLASE/PROTEASE 12,000 UNITS CAP 1 CAP PO ×3 (05:00→21:34)
[2021-11-10 05:10] LABS: Glucose Point of Care 233 mg/dl (65-105)
[2021-11-10 05:16] LABS: Hematocrit 29.2 % (42.0-52.0); Hemoglobin 9.7 g/dL (14.0-18.0); Mean Corpuscular HGB Conc 33.2 g/dl (32-36); Mean Corpuscular Volume 87.2 fl (80-100); Mean Platelet Volume 9.8 fl (7.4-10.4); Platelet Count Result 155 k/mm3 (150-375); Red Blood Count 3.35 M/mm3 (4.6-6.20); Red Cell Distribution Width 12.9 % (11.5-14.5); White Blood Count 7.9 K/mm3 (4.5-10.0)
[2021-11-10 05:25] LABS: Alanine Aminotransferase 13 U/L (4-50); Albumin Level 2.4 g/dL (3.5-5.1); Alkaline Phosphatase 455 U/L (38-126); Anion Gap 5 mmol/L (8-16); Aspartate Amino Transferase 33 U/L (17-59); Bilirubin,Total 0.2 mg/dL (0.2-1.3); Blood Urea Nitrogen 15 mg/dL (9-20); Calcium 7.7 mg/dL (8.4-10.2); Carbon Dioxide 20 mmol/L (22-30); Chloride 111 mmol/L (98-107); Estimated CRCL calculation 87 ml/min; Estimated Glomerular Filt Rate > 60; Glucose 225 mg/dL (65-110); Magnesium 1.7 mg/dL (1.6-2.3); Phosphorus 2.5 mg/dL (2.5-4.5); Potassium 3.4 mmol/L (3.4-5.0); Sodium 136 mmol/L (137-145)
[2021-11-10 07:36] LABS: Glucose Point of Care 152 mg/dl (65-105)
[2021-11-10] MEDS: CALCIUM CARBONATE (TUMS) 500 MG (200 MG ELEMENTAL) 250 MG FEED TUBE ×3 (08:10→17:25)
[2021-11-10] MEDS: MIDODRINE HCL 10 MG TABLET FEED TUBE ×3 (08:10→17:26)
[2021-11-10] MEDS: GABAPENTIN 400 MG CAPSULE FEED TUBE ×3 (08:10→17:26)
[2021-11-10] MEDS: THIAMINE HCL 100 MG TABLET FEED TUBE (08:10)
[2021-11-10] MEDS: FERROUS SULFATE 324 MG TABLET BY MOUTH ×3 (08:11→17:26)
[2021-11-10] MEDS: FOLIC ACID 1 MG TABLET FEED TUBE (08:11)
[2021-11-10] MEDS: POTASSIUM CHLORIDE 20 MEQ PACKET (FOR LIQUID) 40 MEQ FEED TUBE (08:12)
[2021-11-10] MEDS: ENOXAPARIN 60 MG/0.6 ML SYRINGE 45 MG SUB-Q ×2 (08:12→20:33)
[2021-11-10] MEDS: ERGOCALCIFEROL SOLN 8,000 UNITS/ML 60 ML BOTTLE 50000 UNITS FEED TUBE (08:12)
[2021-11-10] MEDS: MAGNESIUM SULF 2 GM/WATER 50ML 2 GM/50 ML BAG IVPB (08:12)
[2021-11-10] MEDS: INSULIN GLARGINE (*BKC) 100 UNITS/ML 8 UNITS SUB-Q (08:19)
--- NOTE | 2021-11-10 11:32 | PCNFU ---
Nutrition Follow-Up Complete: Malnutrition as related to BMI<18.5 as evidenced by unintended weight loss of > 2% weight loss in 1 week. Goal: Adequate Intake of at least 75% of meals/supplements. Patient is progressing towards goal. We will continue current goal. Pt current nutrition is Glucerna 1.2 at 50 ml/hr over 22 hours. Last recorded weight is 44.2 kg, down from 44.6 kg on admit. Bowel Motility:+BM reported 11/07 Labs Reviewed:Glu 225, Na 136, Hct 29.2,Hgb 9.7,Cr 0.5 Meds Noted:Folic Acid, Creon, Flagyl, Reglan, Synthroid, Ultram, Thiamine, Midodrine, NS Skin: unstageable-saccrum/coccyx, stage I-left hip Additional Notes: Patient had MBS on 11/07-failed. Tube feedings of Glucerna 1.2 started. Current tube feeding at 50 ml/hr. Spoke with MD today regarding tube feeding rate. Recommending 80 ml/hr over 22 hours, which will provide 2112 kcals/105 gms protein/1417 ml water. Free water flush 30 ml q 4 hours. Protein Modular of Sincere added BID for wound healing. Plans for repeat MBS today. Agree with diet orders at this time. Monitoring: RD will monitor every Wednesday and Wednesday
[2021-11-10 11:55] LABS: Glucose Point of Care 205 mg/dl (65-105)
--- NOTE | 2021-11-10 13:57 | PM.IMPN ---
Progress Note: A&P Assessment and Plan (1) Sepsis: Code(s): A41.9 - Sepsis, unspecified organism Status: Acute Assessment and Plan: Patient with lactic acid level of 7.2 and soft blood pressure. Now with septicemia with shock with positive blood cultures and HoTN. Secondary to pneumonia and UTI. Urine culture growing Klebsiella that is relatively rodriguez-sensitive. Blood cultures also growing Klebsiella pneumoniae (3of4). Lactic acid level has improved. Was on Vanco, Cefepime and Flagyl. Changed to Levaquin and Flagyl. Continue current abx. (2) Pneumonia: Code(s): J18.9 - Pneumonia, unspecified organism Status: Acute Assessment and Plan: Chest x-ray on admission concerning for pneumonia. CT of the chest 11/07 showing multifocal pneumonia and small pleural effusions. Aspiration versus community-acquired pneumonia. Patient failed his modified barium swallow on 11/07 and again today. NGT was placed on 11/07 and TF started. He is tolerating TF well. More likely aspiration PNA. BCx positive but related to urinary source. Continue ST/PT/OT. Continue current abx. (3) Hypotension: Code(s): I95.9 - Hypotension, unspecified Status: Acute Assessment and Plan: Blood pressure was stable on admission but has dropped since. Suspect related to bacteremia. Not on medications that would lower BP. No narcotics listed. BP is still soft at times. Increase Midodrine. Continue IV fluids and wean off as BP allows. (4) Dysphagia: Code(s): R13.10 - Dysphagia, unspecified Status: Acute Assessment and Plan: As above. Patient here for PNA felt to be aspiration. He failed MBS on 11/07 so NGT placed. Repeat MBS again showing inability to swallow safely. Plan for swallow evaluation later this week and GTube if he is not able to swallow at that time. Plan discussed with patient including placing GTube. He is agreeable with plan. Speech following. (5) Hyperosmolar hyperglycemic state (HHS): Code(s): E11.00 - Type 2 diabetes mellitus with hyperosmolarity without nonketotic hyperglycemic-hyperosmolar coma (NKHHC); E11.65 - Type 2 diabetes mellitus with hyperglycemia Status: Acute Assessment and Plan: Patient presents with picture consistent with HHS with high blood sugars, dehydration but normal anion gap. Patient was resuscitated with IV fluids and IV insulin infusion. Glucose became better controlled and changed to Lantus. Lantus started at low dose. Glucose better controlled. Continue sliding scale protocol. (6) UTI (urinary tract infection): Code(s): N39.0 - Urinary tract infection, site not specified Status: Acute Assessment and Plan: UA noted. Urine culture growing Klebsiella. As above. (7) Diabetes 1.5, managed as type 2: Code(s): E13.9 - Other specified diabetes mellitus without complications Status: Acute Assessment and Plan: A1c>14. Glucose reviewed on 11/10 Glucose better controlled. Will advance Lantus. Continue AccuCheks covering with sliding scale. Hypoglycemia protocol available as needed. Continue close monitoring. (8) Decubitus skin ulcer: Code(s): L89.90 - Pressure ulcer of unspecified site, unspecified stage Status: Acute Assessment and Plan: Patient with multiple areas of skin breakdown related to his chronic bedrest and malnutrition. Patient has been evaluated by wound care and recommendations placed. Continue current wound care. These wounds were evident back in September as well. (9) Bladder outlet obstruction: Code(s): N32.0 - Bladder-neck obstruction Status: Acute Assessment and Plan: Patient was hospitalized in September and noted to have bladder outlet obstruction. Flomax was started. Ellison catheter secured. Patient was discharged on September 15 with a Ellison catheter but I do not believe he followed up with the urologist as instructed. Ellison catheter has been c
[2021-11-10 17:07] LABS: Glucose Point of Care 155 mg/dl (65-105)
[2021-11-10] MEDS: METOCLOPRAMIDE HCL INJ 10 MG/2 ML VIAL 2.5 MG IV PUSH ×2 (17:26→23:41)
[2021-11-10 19:25] LABS: Pneumococcal Antigen Urine Not Detected (Not Detected)
[2021-11-10 20:09] LABS: Glucose Point of Care 151 mg/dl (65-105)
[2021-11-10 23:57] LABS: Glucose Point of Care 101 mg/dl (65-105)
[2021-11-11] VITALS (12 sets, daily range): BP systolic 93–104; BP diastolic 57–67; PULSE 49–99; RESP 16–18; TEMP 35.6–36.7; O2SAT 91–100
[2021-11-11] MEDS: SODIUM CHLORIDE 0.9% IV 1,000 ML 75 ML IV CONT ×2 (00:32→14:27)
[2021-11-11] MEDS: metroNIDAZOLE 500 MG/ISO 100ML 500 MG/100 ML BAG 100 MG IVPB ×3 (00:33→18:22)
[2021-11-11 03:48] LABS: Glucose Point of Care 169 mg/dl (65-105)
[2021-11-11] MEDS: LEVOTHYROXINE SODIUM 75 MCG TABLET FEED TUBE (05:42)
[2021-11-11] MEDS: LIPASE/AMYLASE/PROTEASE 12,000 UNITS CAP 1 CAP PO ×3 (05:42→21:08)
[2021-11-11] MEDS: METOCLOPRAMIDE HCL INJ 10 MG/2 ML VIAL 2.5 MG IV PUSH ×2 (05:42→21:16)
[2021-11-11] MEDS: traMADol HCL (*CRX) 50 MG TABLET FEED TUBE ×2 (05:51→18:23)
[2021-11-11 05:53] LABS: Hematocrit 30.5 % (42.0-52.0); Hemoglobin 9.9 g/dL (14.0-18.0); Mean Corpuscular HGB Conc 32.5 g/dl (32-36); Mean Corpuscular Hemoglobin 29.1 pg (26-34); Mean Corpuscular Volume 89.7 fl (80-100); Mean Platelet Volume 9.5 fl (7.4-10.4); Platelet Count Result 156 k/mm3 (150-375); Red Cell Distribution Width 12.9 % (11.5-14.5); White Blood Count 6.2 K/mm3 (4.5-10.0)
[2021-11-11 06:11] LABS: Alanine Aminotransferase 14 U/L (4-50); Albumin Level 2.6 g/dL (3.5-5.1); Alkaline Phosphatase 623 U/L (38-126); Anion Gap 2 mmol/L (8-16); Aspartate Amino Transferase 56 U/L (17-59); Bilirubin,Total 0.2 mg/dL (0.2-1.3); Blood Urea Nitrogen 12 mg/dL (9-20); Calcium 7.6 mg/dL (8.4-10.2); Carbon Dioxide 24 mmol/L (22-30); Chloride 110 mmol/L (98-107); Estimated CRCL calculation 105 ml/min; Estimated Glomerular Filt Rate > 60; Glucose 147 mg/dL (65-110); Magnesium 1.8 mg/dL (1.6-2.3); Sodium 136 mmol/L (137-145)
[2021-11-11 06:33] LABS: Anisocytosis 1+ (NORMAL); Band Neutrophils Percent 2 % (0-6); Basophils Absolute Manual 0.06 K/mm3 (0.0-0.1); Basophils Percent Manual 1 % (0-1); Eosinophils Absolute Manual 0.06 K/mm3 (0.02-0.5); Eosinophils Percent Manual 1 % (0-4); Lymphocytes Absolute Manual 2.29 K/mm3 (1.1-4.5); Monocytes Absolute Manual 0.12 K/mm3 (0.1-0.90); Monocytes Percent Manual 2 % (3-9); Neutrophils Absolute Manual 3.65 K/mm3 (1.3-6.7); Neutrophils Percent Manual 57 % (46-73); Platelet Estimate Adequate (Adequate); Total Cells Counted 100
[2021-11-11 07:43] LABS: Glucose Point of Care 144 mg/dl (65-105)
[2021-11-11] MEDS: ENOXAPARIN 60 MG/0.6 ML SYRINGE 45 MG SUB-Q ×2 (08:13→21:07)
[2021-11-11] MEDS: GABAPENTIN 400 MG CAPSULE FEED TUBE ×3 (08:13→18:16)
[2021-11-11] MEDS: CHOLECALCIFEROL 1,000 UNITS TABLET 1000 UNITS FEED TUBE (08:13)
[2021-11-11] MEDS: FOLIC ACID 1 MG TABLET FEED TUBE (08:13)
[2021-11-11] MEDS: MIDODRINE HCL 10 MG TABLET FEED TUBE ×3 (08:13→18:16)
[2021-11-11] MEDS: THIAMINE HCL 100 MG TABLET FEED TUBE (08:13)
[2021-11-11] MEDS: FERROUS SULFATE 324 MG TABLET BY MOUTH ×3 (08:14→18:16)
[2021-11-11] MEDS: CALCIUM CARBONATE (TUMS) 500 MG (200 MG ELEMENTAL) 250 MG FEED TUBE ×3 (08:14→18:15)
[2021-11-11] MEDS: INSULIN GLARGINE (*BKC) 100 UNITS/ML 8 UNITS SUB-Q (08:18)
--- NOTE | 2021-11-11 09:09 | PCPTNOTE ---
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
--- NOTE | 2021-11-11 11:19 | PCNFU ---
Nutrition Follow-Up Complete: Malnutrition as related to BMI<18.5 as evidenced by unintended weight loss of > 2% weight loss in 1 week. Goal: Adequate Intake of at least 75% of meals/supplements. Patient has limited progress at this time, will continue goal. Pt current nutrition is Glucerna 1.2 at 80 ml/hr over 22 hours. Last recorded weight is 46 kg, up from 44.6 kg on admit. Bowel Motility:+BM reported 11/11 Labs Reviewed:Glu 147, Cr 0.4,Alb 2.6,Na 136, Hct 30.5,Hgb 9.9 Meds Noted:Reglan, Thiamine, Ultram, Vit D, Neurontin, NS, Lantus, Synthroid, Midodrine, Reglan, Creon. Skin: unstageable-saccum/coccyx, Stage 1-Left hip Additional Notes: Patient remains on tube feedings of Glucerna 1.2 at 80 ml/hr over 22 hours. Current tube feeding is providing 2112 kcals /105 gms protein/1417 ml water. Free water flush 30 ml q 4 hours. Tube feedings are meeting 93% of caloric needs and 100% of protein needs. Protein Modular of Sincere BID via tube for wound healing providing an additional 90 kcals and 2.5 gms protein per packet. Plans for repeat MBS at end of week. Agree with diet orders. Monitoring: RD will monitor every Wednesday and Wednesday.
--- NOTE | 2021-11-11 11:21 | PM.IMPN ---
Progress Note: A&P Assessment and Plan (1) Sepsis: Code(s): A41.9 - Sepsis, unspecified organism Status: Acute Assessment and Plan: Patient with lactic acid level of 7.2 and soft blood pressure. Now with septicemia with shock with positive blood cultures and HoTN. Secondary to pneumonia and UTI. Urine culture growing Klebsiella that is relatively rodriguez-sensitive. Blood cultures also growing Klebsiella pneumoniae (3of4). Lactic acid level has improved. Was on Vanco, Cefepime and Flagyl. Changed to Levaquin and Flagyl. Continue current abx. (2) Pneumonia: Code(s): J18.9 - Pneumonia, unspecified organism Status: Acute Assessment and Plan: Chest x-ray on admission concerning for pneumonia. CT of the chest 11/07 showing multifocal pneumonia and small pleural effusions. Aspiration versus community-acquired pneumonia. Patient failed his modified barium swallow on 11/07 so NGT was placed and TF started. He is tolerating TF well. He failed MBS again on 11/10. More likely aspiration PNA. BCx positive but related to urinary source. Continue ST/PT/OT. Continue current abx. (3) Hypotension: Code(s): I95.9 - Hypotension, unspecified Status: Acute Assessment and Plan: Blood pressure was stable on admission but has dropped since. Suspect related to bacteremia and/or malnutrition. Not on medications that would lower BP. Echo in September EF 65/70% and normal diastolic dysfunction. No narcotics listed. BP is still soft at times but better. Continue Midodrine. Continue IV fluids and wean off as BP allows. (4) Dysphagia: Code(s): R13.10 - Dysphagia, unspecified Status: Acute Assessment and Plan: As above. Patient here for PNA felt to be aspiration. He failed MBS on 11/07 so NGT placed. Repeat MBS again showing inability to swallow safely. Plan for swallow evaluation later this week and GTube if he is not able to swallow at that time. Plan discussed with patient including placing GTube. He is agreeable with plan. Speech following. (5) Hyperosmolar hyperglycemic state (HHS): Code(s): E11.00 - Type 2 diabetes mellitus with hyperosmolarity without nonketotic hyperglycemic-hyperosmolar coma (NKHHC); E11.65 - Type 2 diabetes mellitus with hyperglycemia Status: Acute Assessment and Plan: Patient presents with picture consistent with HHS with high blood sugars, dehydration but normal anion gap. Patient was resuscitated with IV fluids and IV insulin infusion. Glucose became better controlled and changed to Lantus. Lantus started at low dose. Glucose better controlled. Continue sliding scale protocol. (6) UTI (urinary tract infection): Code(s): N39.0 - Urinary tract infection, site not specified Status: Acute Assessment and Plan: UA noted. Urine culture growing Klebsiella. As above. (7) Diabetes 1.5, managed as type 2: Code(s): E13.9 - Other specified diabetes mellitus without complications Status: Acute Assessment and Plan: A1c>14. Glucose reviewed on 11/11 Glucose was controlled. Continue Lantus. Continue AccuCheks covering with sliding scale. Hypoglycemia protocol available as needed. Continue close monitoring. (8) Decubitus skin ulcer: Code(s): L89.90 - Pressure ulcer of unspecified site, unspecified stage Status: Acute Assessment and Plan: Patient with multiple areas of skin breakdown related to his chronic bedrest and malnutrition. Patient has been evaluated by wound care and recommendations placed. Continue current wound care. These wounds were evident back in September as well. (9) Bladder outlet obstruction: Code(s): N32.0 - Bladder-neck obstruction Status: Acute Assessment and Plan: Patient was hospitalized in September and noted to have bladder outlet obstruction. Flomax was started. Ellison catheter secured. Patient was discharged on September 15 with a Ellison catheter but I
[2021-11-11] MEDS: INSULIN ASPART (*BKC) 100 UNITS/ML SUB-Q (12:28)
[2021-11-11 12:59] LABS: Glucose Point of Care 253 mg/dl (65-105)
[2021-11-11 15:07] LABS: Legionella pneumophila Ag Ur Not Detected (Not Detected)
[2021-11-11 16:40] LABS: Glucose Point of Care 158 mg/dl (65-105)
[2021-11-11 19:47] LABS: Glucose Point of Care 144 mg/dl (65-105)
[2021-11-11 23:31] LABS: Glucose Point of Care 99 mg/dl (65-105)
[2021-11-12] VITALS (12 sets, daily range): BP systolic 86–112; BP diastolic 44–66; PULSE 40–72; RESP 16–18; TEMP 36.4–37.5; O2SAT 98–100
[2021-11-12 00:40] LABS: Zinc 31 mcg/dL (60-130)
[2021-11-12] MEDS: metroNIDAZOLE 500 MG/ISO 100ML 500 MG/100 ML BAG 100 MG IVPB ×3 (01:23→18:32)
[2021-11-12 04:01] LABS: Glucose Point of Care 101 mg/dl (65-105)
[2021-11-12 05:38] LABS: Basophils Percent Auto 0.7 % (0.2-1.2); Eosinophils Absolute Auto 0.1 K/mm3 (0-0.3); Eosinophils Percent Auto 1.8 % (0-4.4); Hematocrit 33.7 % (42.0-52.0); Immature Granulocyte Absolute 0.11 K/mm3 (0.00-0.031); Immature Granulocyte Percent A 1.8 % (0-0.5); Lymphocytes Absolute Auto 1.75 K/mm3 (0.9-3.2); Lymphocytes Percent Auto 28.5 % (18.3-44.2); Mean Corpuscular HGB Conc 32.6 g/dl (32-36); Mean Corpuscular Hemoglobin 29.3 pg (26-34); Mean Corpuscular Volume 89.9 fl (80-100); Mean Platelet Volume 9.5 fl (7.4-10.4); Monocytes Absolute Auto 0.4 K/mm3 (0.1-0.6); Monocytes Percent Auto 6.5 % (2.6-8.5); Neutrophils Absolute Auto 3.7 K/mm3 (1.3-6.7); Neutrophils Percent Auto 60.7 % (45.5-73.1); Platelet Count Result 177 k/mm3 (150-375); Red Blood Count 3.75 M/mm3 (4.6-6.20); White Blood Count 6.1 K/mm3 (4.5-10.0)
[2021-11-12 05:49] LABS: Albumin Level 2.7 g/dL (3.5-5.1); Anion Gap 3 mmol/L (8-16); Blood Urea Nitrogen 10 mg/dL (9-20); Calcium 7.8 mg/dL (8.4-10.2); Carbon Dioxide 25 mmol/L (22-30); Chloride 106 mmol/L (98-107); Estimated CRCL calculation 102 ml/min; Estimated Glomerular Filt Rate > 60; Glucose 109 mg/dL (65-110); Magnesium 1.7 mg/dL (1.6-2.3); Phosphorus 2.6 mg/dL (2.5-4.5); Sodium 134 mmol/L (137-145)
[2021-11-12] MEDS: SODIUM CHLORIDE 0.9% IV 1,000 ML 75 ML IV CONT (06:21)
[2021-11-12] MEDS: LIPASE/AMYLASE/PROTEASE 12,000 UNITS CAP 1 CAP PO ×3 (06:22→21:05)
[2021-11-12] MEDS: LEVOTHYROXINE SODIUM 75 MCG TABLET FEED TUBE (06:23)
[2021-11-12 07:59] LABS: Glucose Point of Care 139 mg/dl (65-105)
[2021-11-12] MEDS: MIDODRINE HCL 10 MG TABLET FEED TUBE ×3 (08:22→18:33)
[2021-11-12] MEDS: FOLIC ACID 1 MG TABLET FEED TUBE (08:22)
[2021-11-12] MEDS: FERROUS SULFATE 324 MG TABLET BY MOUTH ×3 (08:22→18:33)
[2021-11-12] MEDS: CHOLECALCIFEROL 1,000 UNITS TABLET 1000 UNITS FEED TUBE (08:22)
[2021-11-12] MEDS: THIAMINE HCL 100 MG TABLET FEED TUBE (08:22)
[2021-11-12] MEDS: CALCIUM CARBONATE (TUMS) 500 MG (200 MG ELEMENTAL) 250 MG FEED TUBE ×3 (08:23→18:33)
[2021-11-12] MEDS: GABAPENTIN 400 MG CAPSULE FEED TUBE ×3 (08:23→18:33)
[2021-11-12] MEDS: ENOXAPARIN 60 MG/0.6 ML SYRINGE 45 MG SUB-Q ×2 (08:23→20:38)
[2021-11-12] MEDS: traMADol HCL (*CRX) 50 MG TABLET FEED TUBE (08:24)
[2021-11-12] MEDS: MAGNESIUM SULF 2 GM/WATER 50ML 2 GM/50 ML BAG IVPB (08:27)
[2021-11-12] MEDS: ZINC SULFATE 220 MG CAPSULE PO (08:27)
[2021-11-12] MEDS: INSULIN GLARGINE (*BKC) 100 UNITS/ML 8 UNITS SUB-Q (08:27)
--- NOTE | 2021-11-12 09:09 | PM.IMPN ---
Progress Note: A&P Assessment and Plan (1) Sepsis: Code(s): A41.9 - Sepsis, unspecified organism Status: Acute Assessment and Plan: Patient with lactic acid level of 7.2 and soft blood pressure. Now with septicemia with shock with positive blood cultures and HoTN. Secondary to pneumonia and UTI. Urine culture growing Klebsiella that is relatively rodriguez-sensitive. Blood cultures also growing Klebsiella pneumoniae (3of4 bottles). Lactic acid level has improved. Was on Vanco, Aztreonam and Flagyl. Changed to Levaquin and Flagyl. Abx Day 6. Continue current abx. (2) Pneumonia: Code(s): J18.9 - Pneumonia, unspecified organism Status: Acute Assessment and Plan: Chest x-ray on admission concerning for pneumonia. CT of the chest 11/07 showing multifocal pneumonia and small pleural effusions. Aspiration versus community-acquired pneumonia. Patient failed his modified barium swallow so more likely aspiration PNA. BCx positive but related to urinary source. Continue ST/PT/OT. Continue current abx. (3) Hypotension: Code(s): I95.9 - Hypotension, unspecified Status: Acute Assessment and Plan: Blood pressure was stable on admission but has dropped since. Suspect related to bacteremia and/or malnutrition. Not on medications that would lower BP. Echo in September EF 65/70% and normal diastolic dysfunction. No narcotics listed. Midodrine started. TSH okay. BP is still soft at times but better. Continue Midodrine. Continue IV fluids and wean off as BP allows. Check Cortisol. (4) Dysphagia: Code(s): R13.10 - Dysphagia, unspecified Status: Acute Assessment and Plan: As above. Patient here for PNA felt to be aspiration. He failed MBS on 11/07 so NGT placed; repeat MBS again showing inability to swallow safely on 11/10. Plan for swallow evaluation later this week and GTube if he is not able to swallow at that time. Plan discussed with patient including placing GTube. He is agreeable with plan. Speech following. (5) UTI (urinary tract infection): Code(s): N39.0 - Urinary tract infection, site not specified Status: Acute Assessment and Plan: UA noted. Urine culture growing Klebsiella. As above. (6) Diabetes 1.5, managed as type 2: Code(s): E13.9 - Other specified diabetes mellitus without complications Status: Acute Assessment and Plan: A1c>14. Glucose reviewed on 11/12 Glucose well controlled. Continue Lantus. Continue AccuCheks covering with sliding scale. Hypoglycemia protocol available as needed. Continue close monitoring. (7) Decubitus skin ulcer: Code(s): L89.90 - Pressure ulcer of unspecified site, unspecified stage Status: Acute Assessment and Plan: Patient with multiple areas of skin breakdown related to his chronic bedrest and malnutrition. Patient has been evaluated by wound care and recommendations placed. Continue current wound care. These wounds were evident back in September as well. (8) Bladder outlet obstruction: Code(s): N32.0 - Bladder-neck obstruction Status: Acute Assessment and Plan: Patient was hospitalized in September and noted to have bladder outlet obstruction. Flomax was started. Ellison catheter secured. Patient was discharged on September 15 with a Ellison catheter but I do not believe he followed up with the urologist as instructed. Ellison catheter has been changed out here. PSA normal. Flomax on hold due to soft BP and that he can not take this by NGT. Voiding trial prior to discharge. (9) Pulmonary embolism: Code(s): I26.99 - Other pulmonary embolism without acute cor pulmonale Status: Acute Assessment and Plan: CT Ch/A/P 08/30/2021 showing PE in the right lower lobe. In September, patient was on Xarelto but switched to Eliquis. Lovenox started here at therapeutic dose until we can determine if he will need a GTube. Resume Eliquis when patient is
[2021-11-12 12:00] LABS: Glucose Point of Care 188 mg/dl (65-105)
[2021-11-12 16:52] LABS: Glucose Point of Care 258 mg/dl (65-105)
[2021-11-12] MEDS: INSULIN ASPART (*BKC) 100 UNITS/ML SUB-Q ×2 (16:55→20:36)
[2021-11-12 21:02] LABS: Glucose Point of Care 294 mg/dl (65-105)
[2021-11-13] VITALS (11 sets, daily range): BP systolic 82–118; BP diastolic 42–87; PULSE 50–81; RESP 14–18; TEMP 35.7–36.9; O2SAT 96–100
[2021-11-13] MEDS: metroNIDAZOLE 500 MG/ISO 100ML 500 MG/100 ML BAG 100 MG IVPB ×3 (00:27→17:07)
[2021-11-13] MEDS: SODIUM CHLORIDE 0.9% IV 1,000 ML 75 ML IV CONT ×3 (00:29→23:20)
[2021-11-13 00:32] LABS: Glucose Point of Care 108 mg/dl (65-105)
[2021-11-13 04:40] LABS: Glucose Point of Care 140 mg/dl (65-105)
[2021-11-13 05:45] LABS: Albumin Level 2.6 g/dL (3.5-5.1); Anion Gap 3 mmol/L (8-16); Blood Urea Nitrogen 13 mg/dL (9-20); Calcium 7.8 mg/dL (8.4-10.2); Carbon Dioxide 29 mmol/L (22-30); Chloride 103 mmol/L (98-107); Estimated CRCL calculation 101 ml/min; Estimated Glomerular Filt Rate > 60; Glucose 129 mg/dL (65-110); Magnesium 1.8 mg/dL (1.6-2.3); Phosphorus 2.7 mg/dL (2.5-4.5); Potassium 3.9 mmol/L (3.4-5.0); Sodium 135 mmol/L (137-145)
[2021-11-13] MEDS: LIPASE/AMYLASE/PROTEASE 12,000 UNITS CAP 1 CAP PO ×3 (06:05→20:36)
[2021-11-13] MEDS: traMADol HCL (*CRX) 50 MG TABLET FEED TUBE ×2 (06:05→17:07)
[2021-11-13] MEDS: LEVOTHYROXINE SODIUM 75 MCG TABLET FEED TUBE (06:05)
[2021-11-13 07:51] LABS: Glucose Point of Care 152 mg/dl (65-105)
[2021-11-13] MEDS: ZINC SULFATE 220 MG CAPSULE PO (08:56)
[2021-11-13] MEDS: FOLIC ACID 1 MG TABLET FEED TUBE (08:56)
[2021-11-13] MEDS: CHOLECALCIFEROL 1,000 UNITS TABLET 1000 UNITS FEED TUBE (08:56)
[2021-11-13] MEDS: FLUDROCORTISONE ACETATE 0.1 MG TABLET PO (08:56)
[2021-11-13] MEDS: FERROUS SULFATE 324 MG TABLET BY MOUTH ×3 (08:56→17:04)
[2021-11-13] MEDS: GABAPENTIN 400 MG CAPSULE FEED TUBE ×3 (08:56→17:04)
[2021-11-13] MEDS: MIDODRINE HCL 10 MG TABLET FEED TUBE ×3 (08:56→17:04)
[2021-11-13] MEDS: THIAMINE HCL 100 MG TABLET FEED TUBE (08:56)
[2021-11-13] MEDS: ENOXAPARIN 60 MG/0.6 ML SYRINGE 45 MG SUB-Q ×2 (08:56→20:36)
[2021-11-13] MEDS: CALCIUM CARBONATE (TUMS) 500 MG (200 MG ELEMENTAL) 250 MG FEED TUBE ×3 (09:00→17:07)
[2021-11-13] MEDS: INSULIN GLARGINE (*BKC) 100 UNITS/ML 8 UNITS SUB-Q (09:01)
--- NOTE | 2021-11-13 10:32 | PCSTNOTE ---
Please refer to the Modified Barium Swallow Evaluation in the EMR.
--- NOTE | 2021-11-13 10:32 | PCSTNOTE ---
Please refer to the Modified Barium Swallow Evaluation in the EMR.
[2021-11-13 11:29] LABS: Glucose Point of Care 210 mg/dl (65-105)
[2021-11-13] MEDS: INSULIN ASPART (*BKC) 100 UNITS/ML SUB-Q ×3 (12:32→21:26)
--- NOTE | 2021-11-13 14:42 | PM.IMPN ---
Progress Note: A&P Assessment and Plan (1) Sepsis: Code(s): A41.9 - Sepsis, unspecified organism Status: Acute Assessment and Plan: Patient with lactic acid level of 7.2 and soft blood pressure. Now with septicemia with shock with positive blood cultures and HoTN. Secondary to pneumonia and UTI. Urine culture growing Klebsiella that is relatively rodriguez-sensitive. Blood cultures also growing Klebsiella pneumoniae (3of4 bottles). Lactic acid level has improved. Was on Vanco, Aztreonam and Flagyl. Changed to Levaquin and Flagyl. Abx Day 7. Continue current abx. (2) Pneumonia: Code(s): J18.9 - Pneumonia, unspecified organism Status: Acute Assessment and Plan: Chest x-ray on admission concerning for pneumonia. CT of the chest 11/07 showing multifocal pneumonia and small pleural effusions. Aspiration versus community-acquired pneumonia. Patient failed his modified barium swallow so more likely aspiration PNA. BCx positive but related to urinary source. Has passed most recent MBS so diet to start. Continue ST/PT/OT. Continue current abx. Monitor closely since diet has been resumed. (3) Hypotension: Code(s): I95.9 - Hypotension, unspecified Status: Acute Assessment and Plan: Blood pressure was stable on admission but has dropped since. Suspect related to bacteremia and/or malnutrition. Not on medications that would lower BP. Echo in September EF 65/70% and normal diastolic dysfunction. No narcotics listed. Midodrine started. TSH and Cortisol okay. BP is still low. Continue Midodrine. Continue IV fluids and wean off as BP allows. Add Antoine hose. Add Florinef. Make sure the staff is using the correct BP cuff size. (4) Dysphagia: Code(s): R13.10 - Dysphagia, unspecified Status: Acute Assessment and Plan: As above. Patient here for PNA felt to be aspiration. He failed MBS on 11/07 so NGT placed; he failed a repeat MBS on 11/10. He has been working with ST. He has tolerated the tube feedings and his weakness has improved. Third swallow evaluation today showing patient could swallow safely. Diet of Pureed Level 4 with moderately thick liquids started. Plan discussed with therapist and nursing. Patient instructed to follow the speech therapist instructions. Explained that he is still at risk for aspiration even despite following these recommendations. He voices understanding and refuses to have the NGT replaced and now refuses the GTube as well. (5) UTI (urinary tract infection): Code(s): N39.0 - Urinary tract infection, site not specified Status: Acute Assessment and Plan: UA noted. Urine culture growing Klebsiella. As above. (6) Diabetes 1.5, managed as type 2: Code(s): E13.9 - Other specified diabetes mellitus without complications Status: Acute Assessment and Plan: A1c>14. Glucose reviewed on 11/13 Glucose reasonably well controlled. Continue Lantus. Continue AccuCheks covering with sliding scale. Hypoglycemia protocol available as needed. Continue close monitoring especially since he is changing from tube feedings to oral. (7) Decubitus skin ulcer: Code(s): L89.90 - Pressure ulcer of unspecified site, unspecified stage Status: Acute Assessment and Plan: Patient with multiple areas of skin breakdown related to his chronic bedrest and malnutrition. Patient has been evaluated by wound care and recommendations placed. Continue current wound care. These wounds were evident back in September as well. (8) Bladder outlet obstruction: Code(s): N32.0 - Bladder-neck obstruction Status: Acute Assessment and Plan: Patient was hospitalized in September and noted to have bladder outlet obstruction. Flomax was started. Ellison catheter secured. Patient was discharged on September 15 with a Ellison catheter but I do not believe he followed up with the urologist as instructed. Ellison catheter has been changed out
[2021-11-13 16:38] LABS: Glucose Point of Care 312 mg/dl (65-105)
[2021-11-13 20:13] LABS: Glucose Point of Care 288 mg/dl (65-105)
[2021-11-13 21:39] LABS: Glucose Point of Care 390 mg/dl (65-105)
[2021-11-14] VITALS (10 sets, daily range): BP systolic 92–107; BP diastolic 40–77; PULSE 50–78; RESP 14–18; TEMP 35.5–36.4; O2SAT 94–100
[2021-11-14] MEDS: metroNIDAZOLE 500 MG/ISO 100ML 500 MG/100 ML BAG 100 MG IVPB ×3 (01:09→17:00)
[2021-11-14] MEDS: INSULIN ASPART (*BKC) 100 UNITS/ML SUB-Q ×4 (01:12→12:15)
[2021-11-14 02:50] LABS: Glucose Point of Care 221 mg/dl (65-105)
[2021-11-14 05:56] LABS: Albumin Level 2.6 g/dL (3.5-5.1); Anion Gap 6 mmol/L (8-16); Blood Urea Nitrogen 7 mg/dL (9-20); Calcium 7.4 mg/dL (8.4-10.2); Carbon Dioxide 27 mmol/L (22-30); Chloride 103 mmol/L (98-107); Estimated CRCL calculation 105 ml/min; Estimated Glomerular Filt Rate > 60; Glucose 311 mg/dL (65-110); Magnesium 1.4 mg/dL (1.6-2.3); Phosphorus 1.9 mg/dL (2.5-4.5); Potassium 3.8 mmol/L (3.4-5.0); Sodium 136 mmol/L (137-145)
[2021-11-14 06:05] LABS: Glucose Point of Care 329 mg/dl (65-105)
[2021-11-14] MEDS: LIPASE/AMYLASE/PROTEASE 12,000 UNITS CAP 1 CAP PO ×3 (07:02→20:03)
[2021-11-14 07:42] LABS: Glucose Point of Care 254 mg/dl (65-105)
[2021-11-14 08:03] LABS: Hematocrit 29.8 % (42.0-52.0); Hemoglobin 9.6 g/dL (14.0-18.0); Mean Corpuscular HGB Conc 32.2 g/dl (32-36); Mean Corpuscular Hemoglobin 28.7 pg (26-34); Mean Platelet Volume 9.6 fl (7.4-10.4); Platelet Count Result 219 k/mm3 (150-375); Red Blood Count 3.35 M/mm3 (4.6-6.20); Red Cell Distribution Width 13.1 % (11.5-14.5); White Blood Count 5.1 K/mm3 (4.5-10.0)
[2021-11-14] MEDS: SODIUM PHOSPHATE 20 MM in DEXTROSE 5% IN WATER 250 ML 50 MM IVPB (08:36)
[2021-11-14] MEDS: MAGNESIUM SULF 2 GM/WATER 50ML 2 GM/50 ML BAG IVPB (08:44)
[2021-11-14] MEDS: ENOXAPARIN 60 MG/0.6 ML SYRINGE 45 MG SUB-Q (08:45)
[2021-11-14] MEDS: FOLIC ACID 1 MG TABLET BY MOUTH (08:46)
[2021-11-14] MEDS: CHOLECALCIFEROL 1,000 UNITS TABLET 1000 UNITS BY MOUTH (08:46)
[2021-11-14] MEDS: ZINC SULFATE 220 MG CAPSULE PO (08:47)
[2021-11-14] MEDS: FERROUS SULFATE 324 MG TABLET BY MOUTH ×3 (08:47→17:00)
[2021-11-14] MEDS: THIAMINE HCL 100 MG TABLET BY MOUTH (08:48)
[2021-11-14] MEDS: MIDODRINE HCL 10 MG TABLET BY MOUTH ×3 (08:48→17:00)
[2021-11-14] MEDS: GABAPENTIN 400 MG CAPSULE BY MOUTH ×3 (08:48→17:00)
[2021-11-14] MEDS: CALCIUM CARBONATE (TUMS) 500 MG (200 MG ELEMENTAL) 250 MG BY MOUTH ×3 (08:51→17:00)
[2021-11-14] MEDS: FLUDROCORTISONE ACETATE 0.1 MG TABLET PO (08:54)
[2021-11-14] MEDS: traMADol HCL (*CRX) 50 MG TABLET BY MOUTH (09:01)
[2021-11-14] MEDS: INSULIN GLARGINE (*BKC) 100 UNITS/ML 12 UNITS SUB-Q (09:04)
[2021-11-14 11:55] LABS: Glucose Point of Care 255 mg/dl (65-105)
--- NOTE | 2021-11-14 13:34 | PCDIET ---
Calorie Count initiated. Dinner 11/13 approx 450 kcals Breakfast 11/14 approx 650 kcals Patient is having good intake for calorie needs. He is hungry and asking for solids. MD advanced diet to Minced and Moist, Level 5 diet for lunch with Moderately Thick liquids, Level 3. Plans for diet order advancement to Easy to Chew Level 7 with Moderately Thick liquids, level 3. Glucerna shakes have been added to trays providing an additional 220 kcals and 10 gms protein. Patient had requested chocolate flavor. Speech continues to follow. Will continue to monitor every 3 days.
--- NOTE | 2021-11-14 13:45 | PCSTNOTE ---
Therapist made several attempts to see patient today and he was with other caregivers each time. Caregivers are reporting patient ate 100% of breakfast and then 100% of lunch, both with no significant signs of aspiration. Patient requested bread for evening meal. Therapist and systems analyst had discussed Minced and Moist and then possibly advancing to Regular, Easy to Chew at supper tonight. Therapist decided to hold off on bread and have tomorrow's speech therapist assess bread during session.
--- NOTE | 2021-11-14 14:00 | PM.IMPN ---
Progress Note: A&P Assessment and Plan (1) Sepsis: Code(s): A41.9 - Sepsis, unspecified organism Status: Acute Assessment and Plan: Patient with lactic acid level of 7.2 and soft blood pressure. Now with septicemia with shock with positive blood cultures. Secondary to pneumonia, bacteremia and UTI. Urine culture growing Klebsiella that is relatively rodriguez-sensitive. Blood cultures also growing Klebsiella pneumoniae (3of4 bottles). Lactic acid level has improved. Was on Vanco, Aztreonam and Flagyl. Changed to Levaquin and Flagyl. Abx Day 8. Continue current abx. (2) Pneumonia: Code(s): J18.9 - Pneumonia, unspecified organism Status: Acute Assessment and Plan: Chest x-ray on admission concerning for pneumonia. CT of the chest 11/07/21 showing multifocal pneumonia and small pleural effusions. Aspiration versus community-acquired pneumonia. Patient failed his modified barium swallow so more likely aspiration PNA. BCx positive but related to urinary source. Has passed his most recent MBS on 11/13 so diet started. On room air now. Continue ST/PT/OT. Continue current abx. Monitor closely since diet has been resumed. (3) Hypotension: Code(s): I95.9 - Hypotension, unspecified Status: Acute Assessment and Plan: Blood pressure was stable on admission but has dropped since. Suspect related to bacteremia and/or malnutrition (could also be related to the wrong sized cuff) Not on medications that would lower BP. Echo in September EF 65-70% and normal diastolic dysfunction. Not on narcotics. Midodrine was started. TSH and Cortisol okay. BP was still low so Florinef added. Has Antoine hose. BP better overall. Continue Midodrine and Florinef. Continue IV fluids and wean off as BP allows. (4) Dysphagia: Code(s): R13.10 - Dysphagia, unspecified Status: Acute Assessment and Plan: As above. Patient here for PNA felt to be aspiration. He failed MBS on 11/07 so NGT placed; he failed a repeat MBS on 11/10. He has been working with ST. He was tolerating the tube feedings and his weakness improved. Third swallow evaluation 11/13 showing patient could swallow safely. Diet of Pureed Level 4 with moderately thick liquids started. Speech therapist felt he could be advanced so now up to Level 5. Patient instructed to follow the speech therapist instructions. Patient is aware that he is still at risk for aspiration even despite following these recommendations. He voices understanding and refuses to have the NGT replaced and now refuses the GTube as well. Advance diet per ST recommendations. (5) UTI (urinary tract infection): Code(s): N39.0 - Urinary tract infection, site not specified Status: Acute Assessment and Plan: UA noted. Urine culture growing Klebsiella. As above. (6) Diabetes 1.5, managed as type 2: Code(s): E13.9 - Other specified diabetes mellitus without complications Status: Acute Assessment and Plan: A1c>14. Glucose reviewed on 11/14 Glucose much higher related to the change in his diet. Advance Lantus. Continue AccuCheks covering with sliding scale. Hypoglycemia protocol available as needed. Continue close monitoring (7) Decubitus skin ulcer: Code(s): L89.90 - Pressure ulcer of unspecified site, unspecified stage Status: Acute Assessment and Plan: Patient with multiple areas of skin breakdown related to his chronic bedrest and malnutrition. Patient has been evaluated by wound care and recommendations placed. Continue current wound care. These wounds were evident back in September as well. (8) Bladder outlet obstruction: Code(s): N32.0 - Bladder-neck obstruction Status: Acute Assessment and Plan: Patient was hospitalized in September and noted to have bladder outlet obstruction. Flomax was started. Ellison catheter secured. Patient was discharged on September 15 with a Ellison catheter but I do not believe he f
[2021-11-14] MEDS: SODIUM CHLORIDE 0.9% IV 1,000 ML 75 ML IV CONT (15:29)
[2021-11-14 16:41] LABS: Glucose Point of Care 78 mg/dl (65-105)
[2021-11-14] MEDS: APIXABAN 5 MG TABLET PO (20:03)
[2021-11-14 20:22] LABS: Glucose Point of Care 167 mg/dl (65-105)
[2021-11-15] VITALS (8 sets, daily range): BP systolic 88–118; BP diastolic 48–73; PULSE 50–99; RESP 14–18; TEMP 36.1–37.1; O2SAT 91–100
[2021-11-15] MEDS: metroNIDAZOLE 500 MG/ISO 100ML 500 MG/100 ML BAG 100 MG IVPB ×3 (00:09→16:38)
[2021-11-15] MEDS: INSULIN ASPART (*BKC) 100 UNITS/ML SUB-Q ×4 (00:11→17:28)
[2021-11-15 00:15] LABS: Glucose Point of Care 249 mg/dl (65-105)
[2021-11-15] MEDS: traMADol HCL (*CRX) 50 MG TABLET BY MOUTH (04:00)
[2021-11-15 04:16] LABS: Glucose Point of Care 194 mg/dl (65-105)
[2021-11-15 05:34] LABS: Hematocrit 27.8 % (42.0-52.0); Hemoglobin 9.4 g/dL (14.0-18.0); Mean Corpuscular HGB Conc 33.8 g/dl (32-36); Mean Corpuscular Hemoglobin 29.7 pg (26-34); Mean Corpuscular Volume 87.7 fl (80-100); Mean Platelet Volume 9.2 fl (7.4-10.4); Platelet Count Result 246 k/mm3 (150-375); Red Blood Count 3.17 M/mm3 (4.6-6.20); White Blood Count 7.3 K/mm3 (4.5-10.0)
[2021-11-15 05:45] LABS: Albumin Level 2.4 g/dL (3.5-5.1); Anion Gap -1 mmol/L (8-16); Blood Urea Nitrogen 5 mg/dL (9-20); Calcium 7.6 mg/dL (8.4-10.2); Carbon Dioxide 32 mmol/L (22-30); Chloride 106 mmol/L (98-107); Estimated CRCL calculation 105 ml/min; Estimated Glomerular Filt Rate > 60; Glucose 235 mg/dL (65-110); Magnesium 1.5 mg/dL (1.6-2.3); Phosphorus 2.1 mg/dL (2.5-4.5); Potassium 3.5 mmol/L (3.4-5.0); Sodium 137 mmol/L (137-145)
--- NOTE | 2021-11-15 06:33 | PC.NURSE ---
pt blood pressure greater than 92 systolic x3. Decreased iv rate per md order to 25 ml/hr
[2021-11-15] MEDS: LEVOTHYROXINE SODIUM 75 MCG TABLET BY MOUTH (06:39)
[2021-11-15] MEDS: LIPASE/AMYLASE/PROTEASE 12,000 UNITS CAP 1 CAP PO ×3 (06:39→20:47)
[2021-11-15 08:17] LABS: Glucose Point of Care 251 mg/dl (65-105)
[2021-11-15] MEDS: APIXABAN 5 MG TABLET PO ×2 (08:47→20:47)
[2021-11-15] MEDS: FOLIC ACID 1 MG TABLET BY MOUTH (08:47)
[2021-11-15] MEDS: GABAPENTIN 400 MG CAPSULE BY MOUTH ×3 (08:47→16:35)
[2021-11-15] MEDS: CALCIUM CARBONATE (TUMS) 500 MG (200 MG ELEMENTAL) 250 MG BY MOUTH ×3 (08:47→16:34)
[2021-11-15] MEDS: ZINC SULFATE 220 MG CAPSULE PO (08:47)
[2021-11-15] MEDS: MIDODRINE HCL 10 MG TABLET BY MOUTH ×3 (08:47→16:35)
[2021-11-15] MEDS: THIAMINE HCL 100 MG TABLET BY MOUTH (08:47)
[2021-11-15] MEDS: FLUDROCORTISONE ACETATE 0.1 MG TABLET PO (08:47)
[2021-11-15] MEDS: FERROUS SULFATE 324 MG TABLET BY MOUTH ×3 (08:47→16:34)
[2021-11-15] MEDS: INSULIN GLARGINE (*BKC) 100 UNITS/ML 12 UNITS SUB-Q (08:47)
[2021-11-15] MEDS: CHOLECALCIFEROL 1,000 UNITS TABLET 1000 UNITS BY MOUTH (08:48)
[2021-11-15] MEDS: POTASSIUM CHLORIDE 20 MEQ PACKET (FOR LIQUID) 40 MEQ PO (08:52)
[2021-11-15] MEDS: MAGNESIUM SULF 2 GM/WATER 50ML 2 GM/50 ML BAG IVPB (08:52)
--- NOTE | 2021-11-15 10:44 | PM.IMPN ---
Progress Note: A&P Assessment and Plan (1) Sepsis: Code(s): A41.9 - Sepsis, unspecified organism Status: Acute Assessment and Plan: Upon admission had lactic acid level of 7.2 and soft blood pressure and later positive blood cultures, secondary to pneumonia and UTI. Urine culture growing Klebsiella that is relatively rodriguez-sensitive. Blood cultures also growing Klebsiella pneumoniae (3of4 bottles). Continue Levquin/Flagyl for antibiotic day 9 on 11/15. (2) Pneumonia: Code(s): J18.9 - Pneumonia, unspecified organism Status: Acute Assessment and Plan: Chest x-ray on admission concerning for pneumonia. CT of the chest 11/07/21 showing multifocal pneumonia and small pleural effusions. Aspiration versus community-acquired pneumonia. Failed his modified barium swallow so more likely aspiration PNA. BCx positive but related to urinary source. Passed MBS on 11/13 so easy to chew diet started. On room air now. Continue ST/PT/OT. Continue current abx. (3) Hypotension: Code(s): I95.9 - Hypotension, unspecified Status: Acute Assessment and Plan: Blood pressure was stable on admission but has dropped since. Suspect related to bacteremia and/or malnutrition (could also be related to the wrong sized cuff) Not on medications that would lower BP. Echo in September EF 65-70% and normal diastolic dysfunction. Not on narcotics. TSH and Cortisol okay. Continue Midodrine, Florinef, ANAIS hose. 11/15 addressed Mg and K issues (4) Dysphagia: Code(s): R13.10 - Dysphagia, unspecified Status: Acute Assessment and Plan: As above. Patient here for PNA felt to be aspiration. He failed MBS on 11/07 so NGT placed; he failed a repeat MBS on 11/10. He has been working with ST. He was tolerating the tube feedings and his weakness improved. Third swallow evaluation 11/13 showing patient could swallow safely. Diet of Pureed Level 4 with moderately thick liquids started. Speech therapist felt he could be advanced so now up to Level 5. Continue speech therapy. (5) UTI (urinary tract infection): Code(s): N39.0 - Urinary tract infection, site not specified Status: Acute Assessment and Plan: UA noted. Urine culture growing Klebsiella. As above. (6) Diabetes 1.5, managed as type 2: Code(s): E13.9 - Other specified diabetes mellitus without complications Status: Acute Assessment and Plan: A1c>14. 11/14 Lantus increased to 14 U 11/15 FBS 251, so added Novolog 2 U TID AC Continue SSI TID AC Hypoglycemia protocol available as needed. (7) Decubitus skin ulcer: Code(s): L89.90 - Pressure ulcer of unspecified site, unspecified stage Status: Acute Assessment and Plan: Patient with multiple areas of skin breakdown wince 09/2021 related to his chronic bedrest and malnutrition. Patient has been evaluated by wound care and recommendations placed. Continue current wound care. (8) Bladder outlet obstruction: Code(s): N32.0 - Bladder-neck obstruction Status: Acute Assessment and Plan: Patient was hospitalized in September and noted to have bladder outlet obstruction. Flomax was started. Ellison catheter secured. Patient was discharged on September 15 with a Ellison catheter but I do not believe he followed up with the urologist as instructed. Ellison catheter has been changed out here. PSA normal. Flomax on hold due to soft BP. Consider voiding trial prior to discharge. (9) Pulmonary embolism: Code(s): I26.99 - Other pulmonary embolism without acute cor pulmonale Status: Acute Assessment and Plan: CT Ch/A/P 08/30/2021 showing PE in the right lower lobe. In September, patient was on Xarelto but switched to Eliquis. Lovenox started here at therapeutic dose until we can determine if he will need a GTube. Eliquis resumed with diet 11/13. (10) Hypothyroidism: Code(s): E03.9 - Hypothyr
[2021-11-15 11:51] LABS: Glucose Point of Care 270 mg/dl (65-105)
[2021-11-15 16:39] LABS: Glucose Point of Care 435 mg/dl (65-105)
[2021-11-15] MEDS: INSULIN ASPART (*BKC) 100 UNITS/ML 10 UNITS SUB-Q (17:28)
[2021-11-15] MEDS: ACETAMINOPHEN 500 MG TABLET 1000 MG PO (17:42)
[2021-11-15 20:58] LABS: Glucose Point of Care 275 mg/dl (65-105)
[2021-11-16] VITALS (7 sets, daily range): BP systolic 91–123; BP diastolic 49–71; PULSE 65–92; RESP 14–18; TEMP 36.1–37.3; O2SAT 95–100
[2021-11-16] MEDS: metroNIDAZOLE 500 MG/ISO 100ML 500 MG/100 ML BAG 100 MG IVPB ×4 (00:50→23:58)
[2021-11-16 00:58] LABS: Glucose Point of Care 321 mg/dl (65-105)
[2021-11-16] MEDS: LIPASE/AMYLASE/PROTEASE 12,000 UNITS CAP 1 CAP PO ×3 (05:07→20:51)
[2021-11-16] MEDS: LEVOTHYROXINE SODIUM 75 MCG TABLET BY MOUTH (05:07)
[2021-11-16] MEDS: INSULIN ASPART (*BKC) 100 UNITS/ML SUB-Q ×6 (05:11→16:37)
[2021-11-16 05:22] LABS: Glucose Point of Care 323 mg/dl (65-105)
[2021-11-16 05:59] LABS: Hematocrit 31.6 % (42.0-52.0); Hemoglobin 10.3 g/dL (14.0-18.0); Mean Corpuscular HGB Conc 32.6 g/dl (32-36); Mean Corpuscular Hemoglobin 29.3 pg (26-34); Mean Corpuscular Volume 89.8 fl (80-100); Mean Platelet Volume 9.1 fl (7.4-10.4); Platelet Count Result 276 k/mm3 (150-375); Red Blood Count 3.52 M/mm3 (4.6-6.20); Red Cell Distribution Width 13.2 % (11.5-14.5); White Blood Count 11.7 K/mm3 (4.5-10.0)
[2021-11-16 06:07] LABS: INR 1.6; Prothrombin Time 18.2 Seconds (11.1-14.7)
[2021-11-16 06:11] LABS: Alanine Aminotransferase 17 U/L (4-50); Albumin Level 2.9 g/dL (3.5-5.1); Alkaline Phosphatase 529 U/L (38-126); Anion Gap 2 mmol/L (8-16); Aspartate Amino Transferase 24 U/L (17-59); Bilirubin,Total 0.1 mg/dL (0.2-1.3); Blood Urea Nitrogen 5 mg/dL (9-20); Calcium 7.9 mg/dL (8.4-10.2); Carbon Dioxide 32 mmol/L (22-30); Chloride 101 mmol/L (98-107); Estimated CRCL calculation 83 ml/min; Estimated Glomerular Filt Rate > 60; Glucose 306 mg/dL (65-110); Magnesium 1.7 mg/dL (1.6-2.3); Phosphorus 2.2 mg/dL (2.5-4.5); Potassium 4.1 mmol/L (3.4-5.0); Sodium 135 mmol/L (137-145)
[2021-11-16 07:46] LABS: Glucose Point of Care 265 mg/dl (65-105)
[2021-11-16] MEDS: INSULIN GLARGINE (*BKC) 100 UNITS/ML 12 UNITS SUB-Q (08:37)
[2021-11-16] MEDS: APIXABAN 5 MG TABLET PO ×2 (08:40→20:51)
[2021-11-16] MEDS: ZINC SULFATE 220 MG CAPSULE PO (08:41)
[2021-11-16] MEDS: THIAMINE HCL 100 MG TABLET BY MOUTH (08:41)
[2021-11-16] MEDS: CALCIUM CARBONATE (TUMS) 500 MG (200 MG ELEMENTAL) 250 MG BY MOUTH ×3 (08:41→16:33)
[2021-11-16] MEDS: GABAPENTIN 400 MG CAPSULE BY MOUTH ×2 (08:41→12:13)
[2021-11-16] MEDS: FLUDROCORTISONE ACETATE 0.1 MG TABLET PO (08:41)
[2021-11-16] MEDS: FERROUS SULFATE 324 MG TABLET BY MOUTH ×3 (08:41→16:33)
[2021-11-16] MEDS: FOLIC ACID 1 MG TABLET BY MOUTH (08:41)
[2021-11-16] MEDS: MIDODRINE HCL 10 MG TABLET BY MOUTH ×3 (08:41→16:33)
[2021-11-16] MEDS: CHOLECALCIFEROL 1,000 UNITS TABLET 1000 UNITS BY MOUTH (08:41)
[2021-11-16] MEDS: ACETAMINOPHEN 500 MG TABLET 1000 MG PO (08:44)
[2021-11-16 11:44] LABS: Glucose Point of Care 353 mg/dl (65-105)
--- NOTE | 2021-11-16 14:54 | PM.IMPN ---
Progress Note: A&P Assessment and Plan (1) Sepsis: Code(s): A41.9 - Sepsis, unspecified organism Status: Acute Assessment and Plan: Upon admission had lactic acid level of 7.2 and soft blood pressure and later positive blood cultures, secondary to pneumonia and UTI. Urine culture growing Klebsiella that is relatively rodriguez-sensitive. Blood cultures also growing Klebsiella pneumoniae (3of4 bottles). Continue Levquin/Flagyl for antibiotic day 10 on 11/16. (2) Pneumonia: Code(s): J18.9 - Pneumonia, unspecified organism Status: Acute Assessment and Plan: Chest x-ray on admission concerning for pneumonia. CT of the chest 11/07/21 showing multifocal pneumonia and small pleural effusions. Aspiration versus community-acquired pneumonia. Failed his modified barium swallow so more likely aspiration PNA. BCx positive but related to urinary source. Passed MBS on 11/13 so easy to chew diet started. On room air now. Continue ST/PT/OT. Continue current abx. (3) Hypotension: Code(s): I95.9 - Hypotension, unspecified Status: Acute Assessment and Plan: Blood pressure was stable on admission but has dropped since. Suspect due to malnutrition. Not on medications that would lower BP (including no narcotics). Echo in September EF 65-70% and normal diastolic dysfunction. TSH and Cortisol okay. Continue Midodrine, FlorinefANAISe. 11/15 addressed Mg and K issues 11/16 Mg repletion (4) Dysphagia: Code(s): R13.10 - Dysphagia, unspecified Status: Acute Assessment and Plan: As above. Patient here for PNA felt to be aspiration. He failed MBS on 11/07 so NGT placed; he failed a repeat MBS on 11/10. He has been working with ST. He was tolerating the tube feedings and his weakness improved. Third swallow evaluation 11/13 showing patient could swallow safely. Diet of Pureed Level 4 with moderately thick liquids started. Speech therapist felt he could be advanced so now up to Level 5 with easy to chew foods. Continue speech therapy. (5) UTI (urinary tract infection): Code(s): N39.0 - Urinary tract infection, site not specified Status: Acute Assessment and Plan: UA noted. Urine culture growing Klebsiella. As above. (6) Diabetes 1.5, managed as type 2: Code(s): E13.9 - Other specified diabetes mellitus without complications Status: Acute Assessment and Plan: A1c>14. 3 Lantus increased to 14 U 11/15 FBS 251, so added Novolog 2 U TID AC 11/16 discussed w/ pt avoiding candy and snacking on high protein foods Continue SSI TID AC Hypoglycemia protocol available as needed. (7) Decubitus skin ulcer: Code(s): L89.90 - Pressure ulcer of unspecified site, unspecified stage Status: Acute Assessment and Plan: Patient with multiple areas of skin breakdown wince 09/2021 related to his chronic bedrest and malnutrition. Patient has been evaluated by wound care and recommendations placed. Continue current wound care. (8) Bladder outlet obstruction: Code(s): N32.0 - Bladder-neck obstruction Status: Acute Assessment and Plan: Patient was hospitalized in September and noted to have bladder outlet obstruction. Flomax was started. Ellison catheter secured. Patient was discharged on September 15 with a Ellison catheter but I do not believe he followed up with the urologist as instructed. Ellison catheter has been changed out here. PSA normal. Flomax on hold due to soft BP. Consider voiding trial prior to discharge. (9) Pulmonary embolism: Code(s): I26.99 - Other pulmonary embolism without acute cor pulmonale Status: Acute Assessment and Plan: CT Ch/A/P 08/30/2021 showing PE in the right lower lobe. In September, patient was on Xarelto but switched to Eliquis. Lovenox started here at therapeutic dose until we can determine if he will need a GTube. Eliquis resumed with diet 11/13
[2021-11-16 16:38] LABS: Glucose Point of Care 247 mg/dl (65-105)
[2021-11-16] MEDS: PREGABALIN (*CRX) 75 MG CAPSULE PO (20:51)
[2021-11-16 20:59] LABS: Glucose Point of Care 255 mg/dl (65-105)
[2021-11-17] VITALS (7 sets, daily range): BP systolic 74–107; BP diastolic 50–67; PULSE 72–100; RESP 16–18; TEMP 36.1–37.6; O2SAT 96–100
[2021-11-17 00:08] LABS: Glucose Point of Care 318 mg/dl (65-105)
[2021-11-17 04:14] LABS: Glucose Point of Care 246 mg/dl (65-105)
[2021-11-17 06:08] LABS: Hematocrit 31.6 % (42.0-52.0); Hemoglobin 10.2 g/dL (14.0-18.0); Mean Corpuscular HGB Conc 32.3 g/dl (32-36); Mean Corpuscular Hemoglobin 29.3 pg (26-34); Mean Corpuscular Volume 90.8 fl (80-100); Mean Platelet Volume 8.9 fl (7.4-10.4); Platelet Count Result 297 k/mm3 (150-375); Red Blood Count 3.48 M/mm3 (4.6-6.20); Red Cell Distribution Width 13.5 % (11.5-14.5); White Blood Count 14.7 K/mm3 (4.5-10.0)
[2021-11-17 06:16] LABS: Anion Gap 4 mmol/L (8-16); Blood Urea Nitrogen 8 mg/dL (9-20); Calcium 7.8 mg/dL (8.4-10.2); Carbon Dioxide 30 mmol/L (22-30); Chloride 101 mmol/L (98-107); Estimated CRCL calculation 83 ml/min; Estimated Glomerular Filt Rate > 60; Glucose 270 mg/dL (65-110); Magnesium 1.5 mg/dL (1.6-2.3); Phosphorus 3.1 mg/dL (2.5-4.5); Potassium 3.5 mmol/L (3.4-5.0); Sodium 135 mmol/L (137-145)
[2021-11-17] MEDS: LIPASE/AMYLASE/PROTEASE 12,000 UNITS CAP 1 CAP PO ×3 (06:33→21:13)
[2021-11-17] MEDS: LEVOTHYROXINE SODIUM 75 MCG TABLET BY MOUTH (06:33)
[2021-11-17] MEDS: INSULIN ASPART (*BKC) 100 UNITS/ML SUB-Q ×5 (06:33→17:01)
[2021-11-17 07:46] LABS: Glucose Point of Care 163 mg/dl (65-105)
[2021-11-17] MEDS: INSULIN GLARGINE (*BKC) 100 UNITS/ML 15 UNITS SUB-Q (08:28)
[2021-11-17] MEDS: MAGNESIUM SULF 2 GM/WATER 50ML 2 GM/50 ML BAG IVPB (08:34)
[2021-11-17] MEDS: CALCIUM CARBONATE (TUMS) 500 MG (200 MG ELEMENTAL) 250 MG BY MOUTH ×3 (08:35→17:00)
[2021-11-17] MEDS: FERROUS SULFATE 324 MG TABLET BY MOUTH ×3 (08:35→17:00)
[2021-11-17] MEDS: ZINC SULFATE 220 MG CAPSULE PO (08:35)
[2021-11-17] MEDS: MIDODRINE HCL 10 MG TABLET BY MOUTH ×3 (08:35→17:00)
[2021-11-17] MEDS: APIXABAN 5 MG TABLET PO ×2 (08:35→20:49)
[2021-11-17] MEDS: PREGABALIN (*CRX) 75 MG CAPSULE PO ×2 (08:35→20:49)
[2021-11-17] MEDS: ACETAMINOPHEN 500 MG TABLET 1000 MG PO ×2 (08:35→22:24)
[2021-11-17] MEDS: DULoxetine HCL 20 MG CAPSULE.DR PO (08:36)
[2021-11-17] MEDS: THIAMINE HCL 100 MG TABLET BY MOUTH (08:36)
[2021-11-17] MEDS: FLUDROCORTISONE ACETATE 0.1 MG TABLET PO (08:36)
[2021-11-17] MEDS: FOLIC ACID 1 MG TABLET BY MOUTH (08:36)
[2021-11-17] MEDS: CHOLECALCIFEROL 1,000 UNITS TABLET 1000 UNITS BY MOUTH (08:36)
--- NOTE | 2021-11-17 10:28 | PCNFU ---
Nutrition Follow-Up Complete: Malnutrition as related to BMI<18.5 as evidenced by unintended weight loss of > 2% weight loss in 1 week. Goal: Adequate Intake of at least 75% of meals/supplements. Patient has met goal. No new goal Pt current nutrition is Easy to Chew, Level 7/DBCC/Mod Thick level 3 Last recorded weight is 42.4 kg, down from 44.6 kg on admit. Bowel Motility:+BM reported 11/17 Labs Reviewed:Mg 1.5, Cr 0.5,BUN 8, Glu 270, Na 135, Hct 31.6, Hgb 10.2 Meds Noted:Reglan, Thiamine, Vit D, Neurontin, Lantus, Synthroid, Midodrine. Skin:Left Hip-Stage 1, Saccum-unstageable, coccyx. Additional Notes: Patient seen today for nutrition follow up. Patient is eating 100% of meals. He is also consuming Glucerna shakes TID providing an additional 220 kcals and 10 gms protein. Patient has been hungry and asking for more food. Blood sugars have also been elevated. Discussed snacking options between meals. Speech therapy continues to follow. Agree with diet orders at this time. Monitoring: RD will monitor every 3 days.
[2021-11-17 11:42] LABS: Glucose Point of Care 107 mg/dl (65-105)
--- NOTE | 2021-11-17 15:48 | PM.IMPN ---
Progress Note: A&P Assessment and Plan (1) Diarrhea: Code(s): R19.7 - Diarrhea, unspecified Status: Acute Assessment and Plan: Patient with diarrhea here. RN states patient having large volume of stool and usually occurs after eating. He is eating excessive amounts of food and eating frequently. Suspect related to refeeding and/or malnutrition with the gut not able to process the large volume of food. Had this last admission in September. Workup was negative. Although not appropriate treatment for CDiff, patient is on Flagyl but WBC climbing. Could be heightened gastrocolic reflex. Encourage him to eat smaller, more frequent meals. Monitor WBC. Consider changing to oral Vanco. (2) Sepsis: Code(s): A41.9 - Sepsis, unspecified organism Status: Acute Assessment and Plan: Patient with lactic acid level of 7.2 and soft blood pressure and found to have septicemia with positive blood cultures. Sepsis secondary to pneumonia, bacteremia and UTI. Urine culture growing Klebsiella that is relatively rodriguez-sensitive. Blood cultures also growing Klebsiella pneumoniae (3of4 bottles). Lactic acid level has improved. Was on Vanco, Aztreonam and Flagyl. Changed to Levaquin and Flagyl. Abx Day 07/20. Continue current abx. (3) Pneumonia: Code(s): J18.9 - Pneumonia, unspecified organism Status: Acute Assessment and Plan: Chest x-ray on admission concerning for pneumonia. CT of the chest 11/07/21 showing multifocal pneumonia and small pleural effusions. Aspiration versus community-acquired pneumonia. Patient failed his modified barium swallow so more likely aspiration PNA. BCx positive but related to urinary source. Has passed his most recent MBS on 11/13 so diet started. On room air now. Continue ST/PT/OT. Continue current abx. Monitor closely since diet has been resumed. (4) Hypotension: Code(s): I95.9 - Hypotension, unspecified Status: Acute Assessment and Plan: Blood pressure was stable on admission but has dropped since. Suspect related to bacteremia and/or malnutrition (could also be related to the wrong sized cuff) Not on medications that would lower BP. Echo in September EF 65-70% and normal diastolic dysfunction. Not on narcotics. Midodrine was started. TSH and Cortisol okay. BP was still low so Florinef added. Has Antoine hose. BP better overall. Continue Midodrine and Florinef. IV fluids have shoshana stopped. (5) Dysphagia: Code(s): R13.10 - Dysphagia, unspecified Status: Acute Assessment and Plan: As above. Patient here for PNA felt to be aspiration. He failed MBS on 11/07 so NGT placed; he failed a repeat MBS on 11/10. He has been working with ST. He was tolerating the tube feedings and his weakness improved. Swallow evaluation 11/13 showing patient could swallow safely. Diet started and advanced per Speech therapist recommendations. Continue Speech therapy. (6) UTI (urinary tract infection): Code(s): N39.0 - Urinary tract infection, site not specified Status: Acute Assessment and Plan: UA noted. Urine culture growing Klebsiella. As above. (7) Diabetes 1.5, managed as type 2: Code(s): E13.9 - Other specified diabetes mellitus without complications Status: Acute Assessment and Plan: A1c>14. Glucose reviewed on 11/17 Glucose beter controlled Continue AccuCheks covering with sliding scale. Hypoglycemia protocol available as needed. Continue close monitoring (8) Decubitus skin ulcer: Code(s): L89.90 - Pressure ulcer of unspecified site, unspecified stage Status: Acute Assessment and Plan: Patient with multiple areas of skin breakdown related to his chronic bedrest and malnutrition. Patient has been evaluated by wound care and recommendations placed. Continue current wound care. These wounds were evident back in September as well. (9) Bladder outlet obstruction: Code(s): N32.0 - Bladder-neck o
[2021-11-17 16:27] LABS: Glucose Point of Care 238 mg/dl (65-105)
[2021-11-17] MEDS: metroNIDAZOLE 500 MG/ISO 100ML 500 MG/100 ML BAG 100 MG IVPB (17:09)
[2021-11-17 19:48] LABS: Glucose Point of Care 215 mg/dl (65-105)
[2021-11-18 02:24] VITALS: BP 94/52; PULSE 74; RESP 18; TEMP 36.6; O2SAT 98
[2021-11-18 05:48] LABS: Basophils Absolute Auto 0.1 K/mm3 (0.0-0.1); Basophils Percent Auto 0.9 % (0.2-1.2); Eosinophils Percent Auto 0.4 % (0-4.4); Hematocrit 27.5 % (42.0-52.0); Hemoglobin 8.8 g/dL (14.0-18.0); Immature Granulocyte Absolute 0.15 K/mm3 (0.00-0.031); Immature Granulocyte Percent A 1.5 % (0-0.5); Lymphocytes Absolute Auto 2.12 K/mm3 (0.9-3.2); Lymphocytes Percent Auto 20.8 % (18.3-44.2); Mean Corpuscular Hemoglobin 29.3 pg (26-34); Mean Corpuscular Volume 91.7 fl (80-100); Mean Platelet Volume 9.1 fl (7.4-10.4); Monocytes Absolute Auto 0.5 K/mm3 (0.1-0.6); Monocytes Percent Auto 5.2 % (2.6-8.5); Neutrophils Absolute Auto 7.2 K/mm3 (1.3-6.7); Neutrophils Percent Auto 71.2 % (45.5-73.1); Platelet Count Result 295 k/mm3 (150-375); Red Cell Distribution Width 13.8 % (11.5-14.5); White Blood Count 10.2 K/mm3 (4.5-10.0)
[2021-11-18 05:55] LABS: Anion Gap 4 mmol/L (8-16); Blood Urea Nitrogen 11 mg/dL (9-20); Calcium 7.8 mg/dL (8.4-10.2); Carbon Dioxide 26 mmol/L (22-30); Chloride 105 mmol/L (98-107); Estimated CRCL calculation 83 ml/min; Estimated Glomerular Filt Rate > 60; Glucose 380 mg/dL (65-110); Potassium 3.6 mmol/L (3.4-5.0); Sodium 135 mmol/L (137-145)
[2021-11-18] MEDS: metroNIDAZOLE 500 MG/ISO 100ML 500 MG/100 ML BAG 100 MG IVPB (06:10)
[2021-11-18] MEDS: INSULIN ASPART (*BKC) 100 UNITS/ML SUB-Q ×4 (06:10→17:11)
[2021-11-18 06:57] VITALS: BP 90/50; PULSE 70; RESP 18; TEMP 36.9; O2SAT 98
[2021-11-18 07:43] LABS: Glucose Point of Care 219 mg/dl (65-105)
[2021-11-18] MEDS: MIDODRINE HCL 10 MG TABLET BY MOUTH ×3 (09:40→17:12)
[2021-11-18] MEDS: FERROUS SULFATE 324 MG TABLET BY MOUTH ×3 (09:40→17:11)
[2021-11-18] MEDS: PREGABALIN (*CRX) 75 MG CAPSULE PO ×2 (09:40→20:40)
[2021-11-18] MEDS: FOLIC ACID 1 MG TABLET BY MOUTH (09:41)
[2021-11-18] MEDS: FLUDROCORTISONE ACETATE 0.1 MG TABLET PO (09:41)
[2021-11-18] MEDS: levoFLOXacin 750 MG TABLET PO (09:41)
[2021-11-18] MEDS: ZINC SULFATE 220 MG CAPSULE PO (09:41)
[2021-11-18] MEDS: DULoxetine HCL 20 MG CAPSULE.DR PO (09:41)
[2021-11-18] MEDS: APIXABAN 5 MG TABLET PO ×2 (09:41→20:39)
[2021-11-18] MEDS: THIAMINE HCL 100 MG TABLET BY MOUTH (09:41)
[2021-11-18] MEDS: CHOLECALCIFEROL 1,000 UNITS TABLET 1000 UNITS BY MOUTH (09:41)
[2021-11-18] MEDS: CALCIUM CARBONATE (TUMS) 500 MG (200 MG ELEMENTAL) 250 MG BY MOUTH ×3 (09:42→17:10)
--- NOTE | 2021-11-18 09:42 | PM.IMPN ---
Progress Note: A&P Assessment and Plan (1) Diarrhea: Code(s): R19.7 - Diarrhea, unspecified Status: Acute Assessment and Plan: Patient with diarrhea here. RN states patient having large volume of stool and usually occurs after eating. He is eating excessive amounts of food and eating frequently. Suspect related to refeeding and/or malnutrition with the gut not able to process the large volume of food. Also possibly related to malabsorption from his chronic pancreatitis. Had diarrhea last admission in September and workup was negative. Although not appropriate treatment for CDiff, patient is already on Flagylso feel CDiff less likely and WBC down. Could be heightened gastrocolic reflex. Encourage him to eat smaller, more frequent meals. GI consult for malabsorption. Norah Perez (2) Sepsis: Code(s): A41.9 - Sepsis, unspecified organism Status: Acute Assessment and Plan: Patient with lactic acid level of 7.2 and soft blood pressure and found to have septicemia with positive blood cultures. Sepsis secondary to pneumonia, bacteremia and UTI. Urine culture growing Klebsiella that is relatively rodriguez-sensitive. Blood cultures also growing Klebsiella pneumoniae (3of4 bottles). Lactic acid level has improved. Was on Vanco, Aztreonam and Flagyl. Changed to Levaquin and Flagyl. Abx Day 08/19. Continue current abx. (3) Pneumonia: Code(s): J18.9 - Pneumonia, unspecified organism Status: Acute Assessment and Plan: Chest x-ray on admission concerning for pneumonia. CT of the chest 11/07/21 showing multifocal pneumonia and small pleural effusions. Aspiration versus community-acquired pneumonia. Patient failed his modified barium swallow so felt to have aspiration PNA. BCx positive but related to urinary source. Has passed his most recent MBS on 11/13 so diet started. On room air now. Continue ST/PT/OT. Continue current abx. Monitor closely since diet has been resumed. August 30, 2021 CT scan showed a 4 mm nodule along the periphery of otherwise thin walled cavitary lesion in the left lower lobe at the site of a prior part solid nodule 2 years prior suggesting sequela of prior infection. Recommend 12 month follow-up low-dose noncontrast chest CT. TB Gold negative. (4) Hypotension: Code(s): I95.9 - Hypotension, unspecified Status: Acute Assessment and Plan: Blood pressure was stable on admission but has dropped since. Suspect related to bacteremia and/or malnutrition. Not on medications that would lower BP including narcotics. Echo in September EF 65-70% and normal diastolic dysfunction. Midodrine was started. TSH and Cortisol okay. BP was still low so Florinef added. Has Antoine hose. BP better overall but still soft. Continue Midodrine and Florinef. (5) Dysphagia: Code(s): R13.10 - Dysphagia, unspecified Status: Acute Assessment and Plan: As above. Patient here for PNA felt to be aspiration. He failed MBS on 11/07 so NGT placed; he failed a repeat MBS on 11/10. He has been working with ST. He was tolerating the tube feedings and his weakness improved. Swallow evaluation 11/13 showing patient could swallow safely. NGT removed, diet started and advanced per Speech therapist recommendations. Continue Speech therapy. (6) UTI (urinary tract infection): Code(s): N39.0 - Urinary tract infection, site not specified Status: Acute Assessment and Plan: UA noted. Urine culture growing Klebsiella. As above. (7) Diabetes 1.5, managed as type 2: Code(s): E13.9 - Other specified diabetes mellitus without complications Status: Acute Assessment and Plan: A1c>14. Glucose reviewed on 11/18 Glucose still up and down Continue AccuCheks covering with sliding scale. Hypoglycemia protocol available as needed. Continue close monitoring (8) Decubitus skin ulcer: Code(s): L89.90 - Pressure ulcer of unspecified site, unspecified stage
[2021-11-18] MEDS: INSULIN GLARGINE (*BKC) 100 UNITS/ML 15 UNITS SUB-Q (09:43)
[2021-11-18 10:18] VITALS: BP 88/51; PULSE 72; RESP 14; TEMP 36.4; O2SAT 98
--- NOTE | 2021-11-18 10:41 | PCPTNOTE ---
Patient refused treatment this session due to patient having to go down for testing at 11 a.m.
--- NOTE | 2021-11-18 11:30 | PCSTNOTE ---
The patient treatment was not able to be completed on 11/18/21 due to being cared for by staff on first attempt and being gone to x-ray for procedure on second attempt. Will plan to continue treatment per plan of care.
[2021-11-18 12:34] LABS: Glucose Point of Care 152 mg/dl (65-105)
[2021-11-18] MEDS: metroNIDAZOLE 250 MG TABLET 500 MG PO ×2 (13:00→21:48)
[2021-11-18] MEDS: LIPASE/AMYLASE/PROTEASE 12,000 UNITS CAP 1 CAP PO ×2 (13:00→21:48)
--- NOTE | 2021-11-18 13:08 | PCOTNOTE ---
Attempted to see patient this date, however patient was unavailable with testing am and pm.
--- NOTE | 2021-11-18 13:47 | PCPTNOTE ---
Patient refused treatment this session due to wanting to sleep. Patient reported I want to sleep till 3:20 p.m. and don't feel like doing therapy today.
[2021-11-18 15:49] VITALS: BP 111/69; PULSE 81; RESP 14; TEMP 36.4; O2SAT 98
[2021-11-18 16:42] LABS: Glucose Point of Care 73 mg/dl (65-105)
--- NOTE | 2021-11-18 17:47 | WPDGICN ---
Assessment and Plan Assessment and plan (1) Diarrhea: Code(s): R19.7 - Diarrhea, unspecified Status: Acute Assessment and Plan: Diarrhea peers to be multifactorial. Nursing notes suggest that this is likely intermittent. Given his rather significant diabetes diabetic diarrhea is quite likely. CT scan suggest chronic pancreatitis undoubtedly contributing to any diarrhea. Patient has multiple comorbid diseases including pneumonia and sepsis at the time of presentation. Either these chronic diseases or other medications certainly could contribute to the diarrhea. Would recommend nutritional support with dietary calories heavy supplements. Continue to monitor diarrhea. Should it worsen repeat cultures may be of some benefit. Adding Creon to help with what appears be chronic pancreatitis may be of some benefit. Documented patient's eyes and nose in the exact frequency of his diarrhea stools may be of some additional benefit given the wide variation in nursing notes. Certainly his alcohol is an contributes to this as well. (2) Alcohol dependence: Code(s): F10.20 - Alcohol dependence, uncomplicated Status: Acute (3) Chronic pancreatitis: Code(s): K86.1 - Other chronic pancreatitis Status: Acute Assessment and Plan: Chronic pancreatitis suggested by his CT scan. Pancreatic calcifications identified. He certainly has a long history of alcoholism which are undoubtedly contributing to this. Will obtain pancreatic last days. Agree with a trial of pancreatic enzymes. (4) Pulmonary embolism: Code(s): I26.99 - Other pulmonary embolism without acute cor pulmonale Status: Acute (5) Diabetes 1.5, managed as type 2: Code(s): E13.9 - Other specified diabetes mellitus without complications Status: Acute (6) Gastroparesis: Code(s): K31.84 - Gastroparesis Status: Acute Assessment and Plan: Gastric emptying scan seems to confirm diabetic gastroparesis. With delayed gastric emptying. Trial of Reglan may be of some benefit but this also may exacerbate his diarrhea. Will need to monitor this and adjust medications accordingly. (7) Pneumonia: Code(s): J18.9 - Pneumonia, unspecified organism Status: Acute GI Consult Note Consult date/time: 11/18/21 17:47 HPI: Shad Rodriguez is a 56 year old male I am asked to see for malabsorption and diarrhea. Patient admitted the hospital on 11/06/2021. He was felt to be in diabetic ketoacidosis at that time. He has had gradual improvement has been treated for pneumonia sepsis as well. He has a distant history of alcoholism history of pulmonary embolus in August 2021 for which she is maintained [facility]. Carries a diagnosis of chronic pancreatitis. I am now asked to see him because of ongoing diarrhea. Patient is a somewhat poor historian. He states he has 3 or 4 loose stools a day. He states he will occasionally take Imodium HD. Nursing notes report from 1-10 bowel movements a day. Typically these are less than 3 bowel movements on a day reported by nursing staff. No bleeding has been described. Patient at present denies abdominal pain. His family history is noncontributory. Stool cultures obtained at the time of presentation were negative for an infection. Review of Systems Review of Systems: All systems reviewed & are unremarkable except as noted in HPI and below PMFSH Past Medical History Medical History Diabetes 1.5, managed as type 2 Pancreatitis, alcoholic, acute Pulmonary embolism Family History Family History Sibling Depression Family history of pancreatic disease Mother Acute myocardial infarction, Onset Age: 60 Social History Social History Smoking packs per day: 1 Smoking cigarettes per day: 20.0 Years
[2021-11-18 19:36] VITALS: BP 104/61; PULSE 56; RESP 18; TEMP 35.7; O2SAT 95
[2021-11-18 20:43] LABS: Glucose Point of Care 198 mg/dl (65-105)
[2021-11-19 00:01] VITALS: BP 101/58; PULSE 50; RESP 18; TEMP 36; O2SAT 100
[2021-11-19 03:53] VITALS: BP 131/77; PULSE 59; RESP 16; TEMP 36; O2SAT 100
[2021-11-19] MEDS: LEVOTHYROXINE SODIUM 75 MCG TABLET BY MOUTH (05:55)
[2021-11-19] MEDS: LIPASE/AMYLASE/PROTEASE 12,000 UNITS CAP 1 CAP PO ×2 (05:55→13:21)
[2021-11-19] MEDS: levoFLOXacin 750 MG TABLET PO (05:55)
[2021-11-19] MEDS: metroNIDAZOLE 250 MG TABLET 500 MG PO ×2 (05:55→13:22)
[2021-11-19 07:55] LABS: Glucose Point of Care > 500 mg/dl (65-105)
[2021-11-19 07:56] LABS: Glucose Point of Care 489 mg/dl (65-105)
[2021-11-19] MEDS: INSULIN ASPART (*BKC) 100 UNITS/ML 10 UNITS SUB-Q (09:11)
[2021-11-19] MEDS: INSULIN GLARGINE (*BKC) 100 UNITS/ML 15 UNITS SUB-Q (09:11)
[2021-11-19] MEDS: CHOLECALCIFEROL 1,000 UNITS TABLET 1000 UNITS BY MOUTH (09:12)
[2021-11-19] MEDS: THIAMINE HCL 100 MG TABLET BY MOUTH (09:12)
[2021-11-19] MEDS: MIDODRINE HCL 10 MG TABLET BY MOUTH ×3 (09:12→16:47)
[2021-11-19] MEDS: PREGABALIN (*CRX) 75 MG CAPSULE PO (09:12)
[2021-11-19] MEDS: ZINC SULFATE 220 MG CAPSULE PO (09:12)
[2021-11-19] MEDS: DULoxetine HCL 20 MG CAPSULE.DR PO (09:12)
[2021-11-19] MEDS: FLUDROCORTISONE ACETATE 0.1 MG TABLET PO (09:12)
[2021-11-19] MEDS: FOLIC ACID 1 MG TABLET BY MOUTH (09:12)
[2021-11-19] MEDS: APIXABAN 5 MG TABLET PO (09:13)
[2021-11-19] MEDS: FERROUS SULFATE 324 MG TABLET BY MOUTH ×3 (09:13→16:46)
[2021-11-19] MEDS: CALCIUM CARBONATE (TUMS) 500 MG (200 MG ELEMENTAL) 250 MG BY MOUTH ×3 (09:13→16:46)
[2021-11-19 10:00] VITALS: BP 103/73; PULSE 74; RESP 18; TEMP 36.4; O2SAT 100
[2021-11-19 11:29] LABS: Glucose Point of Care 467 mg/dl (65-105)
--- NOTE | 2021-11-19 11:38 | PCSTNOTE ---
Patient is being discharged due to meeting goals. Remains on thickener; states he likes it and wants it to continue. Tolerating solid foods well. Reports he does not need the exercises now because his swallowing is fine. Discharge from direct ST. may recommend a repeat MBS prior to discharge to assess if he can go off thickener; at this time, he wants to remain on it, however so no further ST is suggested.
[2021-11-19 11:45] LABS: Glucose Point of Care 441 mg/dl (65-105)
[2021-11-19] MEDS: INSULIN ASPART (*BKC) 100 UNITS/ML SUB-Q ×3 (12:00→16:42)
--- NOTE | 2021-11-19 13:25 | PM.IMPN ---
Progress Note: A&P Assessment and Plan (1) Diarrhea: Code(s): R19.7 - Diarrhea, unspecified Status: Acute Assessment and Plan: Patient with diarrhea here. RN states patient having large volume of stool and usually occurs after eating. He is eating excessive amounts of food and eating frequently. Suspect related to refeeding and/or malnutrition with the gut not able to process the large volume of food. Also possibly related to malabsorption from his chronic pancreatitis. Had diarrhea last admission in September and workup was negative. Although not appropriate treatment for CDiff, patient is already on Flagyl so feel CDiff less likely and WBC down yesterday. Could be heightened gastrocolic reflex. Encourage him to eat smaller, more frequent meals. GI consult for malabsorption and appreciate their input. Continue Creon. Add Fibercon as bulking agent (2) Sepsis: Code(s): A41.9 - Sepsis, unspecified organism Status: Acute Assessment and Plan: Patient with lactic acid level of 7.2 and soft blood pressure and found to have septicemia with positive blood cultures. Sepsis secondary to pneumonia, bacteremia and UTI. Urine culture growing Klebsiella that is relatively rodriguez-sensitive. Blood cultures also growing Klebsiella pneumoniae (3of4 bottles). Lactic acid level has improved. Was on Vanco, Aztreonam started 11/06 at 2200 and Flagyl started 11/07 1000. Changed to Levaquin and Flagyl. Abx Day 13. Continue current abx. (3) Pneumonia: Code(s): J18.9 - Pneumonia, unspecified organism Status: Acute Assessment and Plan: Chest x-ray on admission concerning for pneumonia. CT of the chest 11/07/21 showing multifocal pneumonia and small pleural effusions. Patient failed his modified barium swallow so felt to have aspiration PNA. BCx positive but related to urinary source. Has passed his most recent MBS on 11/13 so diet started. On room air now. Continue ST/PT/OT. Continue current abx. Monitor closely since diet has been resumed. August 30, 2021 CT scan showed a 4 mm nodule along the periphery of otherwise thin walled cavitary lesion in the left lower lobe at the site of a prior part solid nodule 2 years prior suggesting sequela of prior infection. Recommend 12 month follow-up low-dose noncontrast chest CT. TB Gold negative. (4) Hypotension: Code(s): I95.9 - Hypotension, unspecified Status: Acute Assessment and Plan: Blood pressure was stable on admission but has dropped since. Suspect related to bacteremia and/or malnutrition. Not on medications that would lower BP including narcotics. Echo in September EF 65-70% and normal diastolic dysfunction. Midodrine was started. TSH and Cortisol okay. BP was still low so Florinef added. Antoine hose added. BP better overall. Continue Midodrine and Florinef. Wean off these medications if BP continues to improve as toelrated. (5) Dysphagia: Code(s): R13.10 - Dysphagia, unspecified Status: Acute Assessment and Plan: As above. Patient here for PNA felt to be aspiration. He failed MBS on 11/07 so NGT placed; he failed a repeat MBS on 11/10. He has been working with ST. He was tolerating the tube feedings and his weakness improved. Swallow evaluation 11/13 showing patient could swallow safely. NGT removed, diet started and advanced per Speech therapist recommendations. Continue Speech therapy. (6) UTI (urinary tract infection): Code(s): N39.0 - Urinary tract infection, site not specified Status: Acute Assessment and Plan: UA noted. Urine ad Blood cultures growing Klebsiella. Complicated UTI related to the chronic indwelling Ellison. CT showing diffuse prominent bladder wall thickening. Ellison out now. As above. Add back Flomax. Monitor for recurrent urine retention but try to keep Ellison out for as long as possible. (7) Diabetes 1.5, managed as type 2: Code(s): E13.9 - Other specified diabetes mellitus without comp
[2021-11-19 14:10] LABS: Glucose Point of Care 416 mg/dl (65-105)
[2021-11-19] MEDS: INSULIN GLARGINE (*BKC) 100 UNITS/ML SUB-Q (14:44)
[2021-11-19] MEDS: calcium polycarbophiL 625 MG TABLET PO ×2 (14:45→16:46)
[2021-11-19] MEDS: TAMSULOSIN HCL 0.4 MG CAPSULE PO (14:45)
[2021-11-19] MEDS: INSULIN ASPART (*BKC) 100 UNITS/ML 8 UNITS SUB-Q (14:45)
--- NOTE | 2021-11-19 14:50 | PM.DS ---
DS: Admitting Diagnosis Discharge Date 11/19/21 Admitting Diagnosis Failure to thrive and weakness. DS: Discharge Diagnosis Discharge Diagnosis (1) Diarrhea: Code(s): R19.7 - Diarrhea, unspecified Status: Acute Assessment and Plan: Patient had diarrhea that usually occurs after eating. He is eating excessive amounts of food and eating frequently. Suspect related to refeeding and/or malnutrition with the gut not able to process the large volume of food. Had diarrhea last admission in September and workup was negative. Although not appropriate treatment for CDiff, patient is already on Flagyl so feel CDiff less likely and WBC down. Could be heightened gastrocolic reflex. Encouraged patient to eat smaller, more frequent meals. GI consulted for malabsorption and appreciate their input. Treated with Creon for pancreatic insufficiency and Fibercon as bulking agent (2) Sepsis: Code(s): A41.9 - Sepsis, unspecified organism Status: Acute Assessment and Plan: Patient with lactic acid level of 7.2 and soft blood pressure and found to have septicemia. Sepsis secondary to pneumonia, bacteremia and UTI. Urine culture growing Klebsiella that is relatively rodriguez-sensitive. Blood cultures also growing Klebsiella pneumoniae (3of4 bottles). Lactic acid level has improved. Was on Vanco, Aztreonam started 11/06 at 2200 and Flagyl started 11/07 1000. Changed to Levaquin and Flagyl. Treat through 11/20/21 (3) Pneumonia: Code(s): J18.9 - Pneumonia, unspecified organism Status: Acute Assessment and Plan: Chest x-ray on admission concerning for pneumonia. CT of the chest 11/07/21 showing multifocal pneumonia and small pleural effusions. Patient failed his modified barium swallow so felt to have aspiration PNA. BCx positive but related to urinary source. Has passed his most recent MBS on 11/13 so diet started. Weaned to room air. He worked with ST/PT/OT. August 30, 2021 CT scan showed a 4 mm nodule along the periphery of otherwise thin walled cavitary lesion in the left lower lobe at the site of a prior part solid nodule 2 years prior suggesting sequela of prior infection. Recommend 12 month follow-up low-dose noncontrast chest CT. TB Gold negative. CT chest added to discharge instructions. (4) Hypotension: Code(s): I95.9 - Hypotension, unspecified Status: Acute Assessment and Plan: Blood pressure was stable on admission but then dropped. Suspect related to bacteremia and/or malnutrition. Not on medications that would lower BP including narcotics. Echo in September EF 65-70% and normal diastolic dysfunction. Midodrine was started. TSH and Cortisol okay. BP was still low so [place] added. Antoine shi added. BP better overall. (5) Dysphagia: Code(s): R13.10 - Dysphagia, unspecified Status: Acute Assessment and Plan: As above. Patient here for PNA felt to be aspiration. He failed MBS on 11/07 so NGT placed; he failed a repeat MBS on 11/10. He worked with ST. He was tolerating the tube feedings and his weakness improved. Swallow evaluation 11/13 showing patient could swallow safely. NGT removed, diet started and advanced per Speech therapist recommendations. Continue Speech therapy at the facility (6) UTI (urinary tract infection): Code(s): N39.0 - Urinary tract infection, site not specified Status: Acute Assessment and Plan: UA noted. Urine and Blood cultures growing Klebsiella. Complicated UTI related to the chronic indwelling Ellison. CT showing diffuse prominent bladder wall thickening. Ellison removed and patient voiding normally. As above. Added back Flomax. Monitor for recurrent urine retention at the facility (7) Diabetes 1.5, managed as type 2: Code(s): E13.9 - Other specified diabetes mellitus without complications Status: Acute Assessment and Plan: A1c>14. Glucose monitored closely with AccuCheks covering with sliding scale.
[2021-11-19 16:34] LABS: Glucose Point of Care 240 mg/dl (65-105)
[2021-11-19 17:10] LABS: EDCOVIDSCREEN Negative (Negative)
[2021-11-26 19:32] LABS: Pancreatic Elastase, Stool <15 mcg/g
--- NOTE | 2021-11-28 10:46 | PC.NURSE ---
Pancreatic Elastase is <[address] Westfall aware
== END 2021-11-19 17:30 | DRG 871 ==
LOC: ANHICU 11-07 16:07 → ANH3MED 11-16 09:04 → ANH2MED 11-20 12:35 → ANH3MED 11-20 12:35 → ANHICU 11-20 12:35
PROVIDERS: Internal Medicine; Internal Medicine Gastroenterology; Physician Assistant; Admitting Provider Family Medicine; PCP Internal Medicine; Visit Provider Internal Medicine
DX: A41.89 Other specified sepsis (principal); E13.00 Other specified diabetes mellitus with hyperosmolarity without nonketotic hyperglycemic-hyperosmolar coma (NKHHC); I26.99 Other pulmonary embolism without acute cor pulmonale; J69.0 Pneumonitis due to inhalation of food and vomit; J18.9 Pneumonia, unspecified organism; E46 Unspecified protein-calorie malnutrition; N39.0 Urinary tract infection, site not specified; K86.1 Other chronic pancreatitis; N32.0 Bladder-neck obstruction; I95.9 Hypotension, unspecified; Z20.822 Contact with and (suspected) exposure to COVID-19; E13.42 Other specified diabetes mellitus with diabetic polyneuropathy; E13.43 Other specified diabetes mellitus with diabetic autonomic (poly)neuropathy; E13.65 Other specified diabetes mellitus with hyperglycemia; K31.84 Gastroparesis; K30 Functional dyspepsia; L89.90 Pressure ulcer of unspecified site, unspecified stage; R19.7 Diarrhea, unspecified; E87.8 Other disorders of electrolyte and fluid balance, not elsewhere classified; D64.9 Anemia, unspecified; E03.9 Hypothyroidism, unspecified; F17.210 Nicotine dependence, cigarettes, uncomplicated; R29.898 Other symptoms and signs involving the musculoskeletal system; F10.20 Alcohol dependence, uncomplicated; R07.9 Chest pain, unspecified; Z79.4 Long term (current) use of insulin
CPT/HCPCS: 36415; 71250; 74176; 78264; 80048; 80053; 80069; 80076; 80202; 82306; 82533; 82607; 82653; 82746; 82948; 83036; 83605; 83735; 84100; 84132; 84134; 84153; 84443; 84484; 84630; 85025; 85027; 85055; 85610; 85730; 87040; 87426; 87449; 87899; 92526; 92610; 92611; 93005; 97110; 97116; 97162; 97166; 97530; 97535; A9270; A9541; C9803; J1650; J1815; J1956; J2765; J3370; J3475; J3480; J7030; J7040; J7050; J7060

== ENCOUNTER 2021-11-25 08:02 | Emergency (ER) | payer OTHER, MEDICAID, SELFPAY ==
--- NOTE | ~2021-11-25 | CT_ITS ---
EXAMINATION: CT cervical spine wo con DATE: 11/25/2021 08:22 INDICATION: Head injury TECHNIQUE: Computed tomography (CT) of the cervical spine was performed without intravenous contrast. The dose-length product (DLP) was 93.88 mGy-cm. Automated exposure control and iterative reconstruct ion technique were employed. COMPARISON: 06/29/2015 FINDINGS: There are 2 mm retrolisthesis of C5 on C6. There is mild loss of intervertebral disc space height at C5-6. The vertebral body heights are maintained. There is no fracture. The odontoid is inta ct. There is an old right first rib fracture. Mild emphysema is noted in the visualized lung apices. IMPRESSION: 1. Mild cervical spondylosis without acute findings. Reviewed, dictated and finalized at location D.
--- NOTE | ~2021-11-25 | XR_ITS ---
EXAMINATION: XR elbow LT min 3V DATE: 11/25/2021 08:31 INDICATION: Left elbow pain TECHNIQUE: Anteroposterior, two oblique and lateral views of the left elbow were obtained. COMPARISON: None. FINDINGS: Alignment is normal. No fracture or joint effusion. Joint spaces are normal. Soft tissues are unremarkable. IMPRESSION: 1. No acute osseous abnormality. Reviewed, dictated and finalized at location D.
--- NOTE | ~2021-11-25 | CT_ITS ---
EXAMINATION: CT brain wo con INDICATION: Head injury COMPARISON: 09/05/2021 TECHNIQUE: Standard unenhanced head CT. The dose-length product (DLP) was 605.33 mGy-cm. The mA was a djusted according to patient size. Iterative reconstruction technique was employed. FINDINGS: There is no intracranial hemorrhage, acute infarction, or abnormal mass lesion. The ventric les are normal. There is no abnormal mass effect or midline shift. The betts-white matter differentiat ion is normal. The basal cisterns are patent. The orbits are normal. There is a left temporal scalp s oft tissue laceration. The paranasal sinuses, mastoids and calvarium are normal. IMPRESSION: 1. No acute intracranial abnormality. Reviewed, dictated and finalized at location D.
[2021-11-25 08:01] VITALS: BP 92/69; PULSE 84; RESP 16; TEMP 36.7; O2SAT 100
--- NOTE | 2021-11-25 08:19 | ED.HEATRA ---
HPI - Head Injury General Chief complaint: Head Injury Stated complaint: fall Time Seen by Provider: 11/25/21 08:03 Source: patient History of Present Illness HPI Narrative: Patient presents with a head injury. Patient reports he was woke up at his rehab facility try to get out of bed when he tripped and struck his head on the nightstand. Patient also reports he hit his left elbow. Patient reports he overall feels well reports mild ache of a left elbow. Denies any focal numbness or weakness denies any changes in vision denies any nausea or vomiting. Patient denied any prodrome prior to his fall such as chest pain shortness of breath lightheadedness or dizziness Related Data Home Medications Medication Instructions Recorded Confirmed levothyroxine [Euthyrox] 75 mcg PO DAILY 11/06/21 11/06/21 Allergies Allergy/AdvReac Type Severity Reaction Status Date / Time Penicillins Allergy Rash Verified 11/25/21 08:18 Review of Systems Review of Systems: CONSTITUTIONAL: Denies fever, chills, or sweats. EYES: Denies visual changes, redness, or discharge. ENT: Denies rhinorrhea, congestion, sore throat, or otalgia. CARDIOVASCULAR: Denies chest pain, palpitations, or edema. RESPIRATORY: Denies cough or dyspnea. GASTROINTESTINAL: Denies abdominal pain, nausea, vomiting, or diarrhea. GENITOURINARY: Denies dysuria or hematuria. SKIN: Denies rash or itching. MUSCULOSKELETAL: Denies back pain, or myalgia. NEUROLOGIC: Denies headache, numbness, dizziness, or weakness. PSYCHIATRIC: Denies anxiety or depression. All systems reviewed & are unremarkable except as noted in HPI and below PMFSH Past Medical History Medical History Diabetes 1.5, managed as type 2 Pancreatitis, alcoholic, acute Pulmonary embolism Family History Family History Sibling Depression Family history of pancreatic disease Mother Acute myocardial infarction, Onset Age: 60 Social History Social History Smoking packs per day: 1 Smoking cigarettes per day: 20.0 Years smoked: 22 Smoking pack-years: 22.00 Smoking status: Current every day smoker Tobacco type: cigarettes Alcohol intake: former Substance use: never Substance use type: methamphetamine Spiritual care concerns: No Exam Narrative: GENERAL: Well-appearing, well-nourished, and in no acute distress. HEAD: Normocephalic, partially 1 and half centimeter laceration noted above the left orbit no active bleeding there is a stellate laceration on the left scalp both lacerations are superficial only subcutaneous tissue was visualized no deep space tissue is visualized bleeding was controlled at the time of evaluation EYES: PERRLA and EOMI. ENT: Nares clear, no rhinorrhea or epistaxis. Mucous membranes moist. NECK: Supple. No masses. No JVD CHEST: Clear to auscultation. No respiratory distress. No wheezes rales or rhonchi HEART: Regular rate and rhythm. No murmur heard. Normal peripheral pulses. ABDOMEN: Soft, nontender, nondistended, normal active bowel sounds. EXTREMITIES: Normal range of motion. No edema. Mild diffuse tenderness to the left elbow no obvious deformity no open or draining wounds SKIN: Warm, dry, no rash. NEURO: Cranial nerves II through XII are intact patient has 5 out of 5 strength in all extremities sensation intact to light touch in all extremities alert and oriented x3. PSYCH: Normal mood and affect. Course Reevaluation(s) Reevaluation #1: Room prepared results reviewed with patient. Patient is comfortable outpatient plan. Date: 11/25/21 Time: 09:00 Vital Signs Vital signs: Vital Signs Temperature 36.7 C 11/25/21 08:01 Pulse Rate 84 11/25/21 08:01 Respiratory Rate 16 11/25/21 08:01 Blood Pressure 92/69 L 11/25/21 08:01 Pulse Oximetry 100 11/25/21 08:01 Temperature
[2021-11-25] MEDS: TETANUS,DIPHTHERIA,AC PERTUSSIS ADULT (0.5 ML) BOOSTRIX IM (08:57)
[2021-11-25 11:42] VITALS: BP 84/55; PULSE 78; RESP 16; O2SAT 99
== END 2021-11-25 11:42 ==
PROVIDERS: Emergency Provider Emergency Medicine; PCP Internal Medicine
DX: S01.01XA Laceration without foreign body of scalp, initial encounter (principal); S01.112A Laceration without foreign body of left eyelid and periocular area, initial encounter; S50.02XA Contusion of left elbow, initial encounter; Z23 Encounter for immunization; E13.8 Other specified diabetes mellitus with unspecified complications; Z86.711 Personal history of pulmonary embolism; K85.20 Alcohol induced acute pancreatitis without necrosis or infection; F17.210 Nicotine dependence, cigarettes, uncomplicated; M47.812 Spondylosis without myelopathy or radiculopathy, cervical region; W01.190A Fall on same level from slipping, tripping and stumbling with subsequent striking against furniture, initial encounter; Z79.4 Long term (current) use of insulin; Z79.01 Long term (current) use of anticoagulants
CPT/HCPCS: 12002; 70450; 72125; 73080; 90471; 90715; 99284

== ENCOUNTER 2021-11-28 19:49 | Emergency (ER) | payer OTHER, SELFPAY ==
[2021-11-28] VITALS (20 sets, daily range): BP systolic 96–106; BP diastolic 43–70; PULSE 90–106; RESP 12–24; TEMP 36.6
--- NOTE | 2021-11-28 20:26 | ED.NAVMDI ---
HPI - Nausea/Vomiting/Diarrhea General Chief complaint: Nausea/Vomiting/Diarrhea Stated complaint: diarrhea, dehydration Time Seen by Provider: 11/28/21 19:59 Source: patient Mode of arrival: ambulatory Limitations: no limitations History of Present Illness HPI Narrative: Patient is a 56-year-old male complaining of diarrhea, loose watery, nonbloody that started 1 month ago. Patient denies abdominal pain, nausea, vomiting, melena, hematochezia, fever or chills. Patient denies any recent use of antibiotics. Patient denies any recent hospitalization. Patient does live in an assisted living facility. Related Data Home Medications Medication Instructions Recorded Confirmed levothyroxine [Euthyrox] 75 mcg PO DAILY 11/06/21 11/06/21 Cerovite 11/28/21 11/28/21 Daily Vitamin C Pack 11/28/21 Humalog U-100 Insulin 11/28/21 11/28/21 bisacodyl 11/28/21 11/28/21 Allergies Allergy/AdvReac Type Severity Reaction Status Date / Time Penicillins Allergy Rash Verified 11/28/21 20:44 Review of Systems Review of Systems: All systems reviewed & are unremarkable except as noted in HPI and below Constitutional: Constitutional: Denies body ache(s), Denies chills, Denies excessive sweating, Denies fatigue, Denies fever(s), Denies headache(s), Denies lethargy, Denies malaise, Denies weakness and Denies weight loss Eyes: Eyes: Denies blurry vision, Denies change in vision and Denies loss of vision ENT: Denies dizziness, Denies ear discharge, Denies headache(s), Denies lip swelling, Denies epistaxis, Denies nasal congestion, Denies neck pain, Denies throat swelling and Denies tongue swelling Cardiovascular: Cardiovascular: Denies chest pain, Denies chest pain at rest, Denies chest pain with activity, Denies diaphoresis, Denies rapid heart rate, Denies edema, Denies irregular heart rhythm, Denies lightheadedness, Denies palpitations, Denies dyspnea and Denies dyspnea on exertion Respiratory: Respiratory: Denies chest congestion, Denies cough, Denies hemoptysis, Denies dyspnea and Denies dyspnea on exertion Gastrointestinal: Gastrointestinal: Denies abdominal pain, Denies melena, Denies hematochezia, Denies nausea, Denies vomiting and Denies hematemesis Musculoskeletal: Musculoskeletal: Denies abnormal gait, Denies deformity, Denies joint swelling, Denies limited range of motion, Denies neck pain and Denies numbness Neurologic: Denies Abnormal speech present, Denies abnormal gait, Denies confusion, Denies dizziness, Denies headache(s), Denies focal weakness, Denies loss of vision, Denies numbness, Denies Other visual disturbances, Denies Sensory deficit (Neuro) and Denies weakness Psychiatric: Psychiatric: Denies confusion, Denies depression, Denies auditory hallucinations, Denies homicidal ideation and Denies suicidal ideation Endocrine: Endocrine: Denies cold intolerance, Denies excessive sweating, Denies fatigue, Denies heat intolerance and Denies palpitations Hematologic/Lymphatic: Hematologic/Lymphatic: Denies easy bleeding and Denies easy bruising Allergic/Immunologic: Allergic/Immunologic: Denies lip swelling, Denies throat swelling and Denies tongue swelling PMFSH Past Medical History Medical History Diabetes 1.5, managed as type 2 Pancreatitis, alcoholic, acute Pulmonary embolism Family History Family History Sibling Depression Family history of pancreatic disease Mother Acute myocardial infarction, Onset Age: 60 Social History Social History Smoking packs per day: 1 Smoking cigarettes per day: 20.0 Years smoked: 22 Smoking pack-years: 22.00 Smoking status: Current every day smoker Tobacco type: cigarettes Alcohol intake: former Substance use: never Substance use type: methamphetamine Spiritual care concerns: No Exam Con
[2021-11-28] MEDS: SODIUM CHLORIDE 0.9% IV 1,000 ML 999 ML IV CONT (20:37)
[2021-11-28] MEDS: LACTATED RINGERS 1,000 ML 999 ML IV CONT (20:37)
[2021-11-28 20:52] LABS: Basophils Absolute Auto 0.1 K/mm3 (0.0-0.1); Basophils Percent Auto 0.4 % (0.2-1.2); Eosinophils Absolute Auto 0.1 K/mm3 (0-0.3); Eosinophils Percent Auto 0.6 % (0-4.4); Hematocrit 26.1 % (42.0-52.0); Hemoglobin 8.1 g/dL (14.0-18.0); Immature Granulocyte Absolute 0.09 K/mm3 (0.00-0.031); Immature Granulocyte Percent A 0.7 % (0-0.5); Lymphocytes Absolute Auto 1.64 K/mm3 (0.9-3.2); Lymphocytes Percent Auto 13.3 % (18.3-44.2); Mean Corpuscular Hemoglobin 29.5 pg (26-34); Mean Corpuscular Volume 94.9 fl (80-100); Mean Platelet Volume 8.9 fl (7.4-10.4); Monocytes Absolute Auto 0.6 K/mm3 (0.1-0.6); Monocytes Percent Auto 4.6 % (2.6-8.5); Neutrophils Absolute Auto 9.9 K/mm3 (1.3-6.7); Neutrophils Percent Auto 80.4 % (45.5-73.1); Platelet Count Result 307 k/mm3 (150-375); Red Blood Count 2.75 M/mm3 (4.6-6.20); Red Cell Distribution Width 15.4 % (11.5-14.5); White Blood Count 12.3 K/mm3 (4.5-10.0)
[2021-11-28 21:02] LABS: Alanine Aminotransferase 12 U/L (4-50); Albumin Level 2.8 g/dL (3.5-5.1); Alkaline Phosphatase 330 U/L (38-126); Anion Gap 3 mmol/L (8-16); Aspartate Amino Transferase 23 U/L (17-59); Bilirubin,Total 0.3 mg/dL (0.2-1.3); Blood Urea Nitrogen 11 mg/dL (9-20); Carbon Dioxide 32 mmol/L (22-30); Chloride 102 mmol/L (98-107); Estimated CRCL calculation 80 ml/min; Estimated Glomerular Filt Rate > 60; Glucose 211 mg/dL (65-110); Lipase 20 U/L (23-300); Potassium 4.1 mmol/L (3.4-5.0); Sodium 137 mmol/L (137-145)
--- NOTE | 2021-11-28 22:32 | PC.NURSE ---
Call to pt's sister (ARETHA) cell phone at [phone]. Call goes directly to voice mail. Pt requests [employer] to eat.
--- NOTE | 2021-11-28 22:50 | PC.NURSE ---
Attempt to call [facility] at [phone], call goes directly to voicemail.
--- NOTE | 2021-11-28 22:53 | PC.NURSE ---
Pt given orange popsicle po. Made aware of difficulty getting a ride home.
[2021-11-29] VITALS (14 sets, daily range): BP systolic 87–108; BP diastolic 52–66; PULSE 73–99; RESP 14–18; TEMP 36.7; O2SAT 95
--- NOTE | 2021-11-29 00:13 | PC.NURSE ---
Call to ARETHA valladares again. Phone goes directly to [employer]. Message left to return call to ED. Pt asleep on stretcher. Denies needs at present.
--- NOTE | 2021-11-29 02:32 | PC.NURSE ---
Pt continues to eat at turkey sandwich tray. Given diet soda at his request.
--- NOTE | 2021-11-29 03:19 | PC.NURSE ---
Spoke with RN from [facility], states that she's sending a message to the DON at her facility and that they can possibly send a truck in the am to take the patient back home.
--- NOTE | 2021-11-29 05:59 | PC.NURSE ---
Pt sleeping soundly on stretcher. [facility] returns call to ED, states that the ride service they use doesn't transport on the weekends. [facility] states will attempt to get ahold of the sister today and will keep us updated.
--- NOTE | 2021-11-29 06:42 | PC.NURSE ---
Pt asleep on stretcher.
--- NOTE | 2021-11-29 07:09 | PC.NURSE ---
Report to ASHLEY Cannon, to continue care.
--- NOTE | 2021-11-29 08:23 | PC.NURSE ---
Ordered patient meal tray. Attempted to call pts sister for a ride back to [employer] with no answer. Message left.
--- NOTE | 2021-11-29 08:53 | PC.NURSE ---
Attempted to call [facility] for possible transport with no answer
--- NOTE | 2021-11-29 09:01 | PC.NURSE ---
Spoke with [facility]. They have no transport available today. Will keep attempting to contact his sister.
--- NOTE | 2021-11-29 09:14 | PC.NURSE ---
Pts sister called and states she will be on her way to warehouse order picker patient shortly
--- NOTE | 2021-11-29 10:50 | PC.NURSE ---
Lab rejected pt stool sample for not being liquid enough
== END 2021-11-29 10:51 ==
PROVIDERS: Emergency Provider Emergency Medicine; PCP Internal Medicine
DX: R19.7 Diarrhea, unspecified (principal); E13.9 Other specified diabetes mellitus without complications; Z86.711 Personal history of pulmonary embolism; F17.210 Nicotine dependence, cigarettes, uncomplicated; Z79.4 Long term (current) use of insulin; Z79.01 Long term (current) use of anticoagulants
CPT/HCPCS: 36415; 80053; 83690; 85025; 96360; 99283; J7030; J7120

== ENCOUNTER 2021-11-30 08:38 | Inpatient (IN) | payer OTHER, MEDICAID, SELFPAY ==
[2021-11-30] VITALS (41 sets, daily range): BP systolic 78–116; BP diastolic 52–70; PULSE 54–89; RESP 6–20; TEMP 36.1–37.2; O2SAT 92–100; BMI 14.7
--- NOTE | ~2021-11-30 | XR_ITS ---
EXAMINATION: XR abdomen/kub 1V DATE: 11/30/2021 12:49 INDICATION: Diarrhea TECHNIQUE: A supine view of the abdomen on 2 radiographs was obtained. COMPARISON: Comparison CT dated 11/07/2021 FINDINGS: Gas and small amount of stool scattered throughout the colon. No dilated loops of gas-filled bowel to suggest obstruction. Dystrophic pancreatic calcifications project over the left upper quadrant consi stent with sequela of chronic pancreatitis. Mild streaky bibasilar atelectasis. IMPRESSION: 1. No dilated loops of gas-filled bowel to suggest obstruction. 2. Pancreatic calcific lesions consistent with chronic pancreatitis. Reviewed, dictated and finalized at location A.
--- NOTE | ~2021-11-30 | CT_ITS ---
EXAMINATION: CT brain wo con DATE: 11/30/2021 10:04 INDICATION: Altered mental status TECHNIQUE: Computed tomography (CT) of the head was performed without intravenous contrast. Sagittal and coronal reconstructions were performed. The mA was adjusted according to patient size. Iterative reconstruction technique was employed. The dose-length product was 605.33 mGy-cm. COMPARISON: head CT dated 11/25/2021 FINDINGS: No acute intracranial hemorrhage, acute infarction or abnormal extra axial fluid collection. Ventri cles are normal and symmetric. No mass/mass effect. The orbits, paranasal sinuses and mastoid air faith ls are normal. IMPRESSION: 1. No acute intracranial process. Reviewed, dictated and finalized at location A.
--- NOTE | ~2021-11-30 | XR_ITS ---
EXAMINATION: XR chest 2V DATE: 11/30/2021 09:51 INDICATION: Weakness TECHNIQUE: frontal and lateral views of the chest were obtained. COMPARISON: Chest radiograph dated 11/06/[address] dated 11/07/2021 FINDINGS: Hyperexpansion of lungs with increased lucency and architectural distortion in the upper lung zones c onsistent with moderate emphysema better appreciated on prior CT. Linear atelectasis/scarring at the lateral right mid and bilateral lower lung zones. More patchy airspace opacities in bilateral mid and lower lung zones which have increased slightly since the prior radiographs concerning for pneumonia. No pleural effusion or pneumothorax. The cardiomediastinal silhouette is normal. Chronic T8 compress ion fracture with 20% anterior vertebral body height loss. IMPRESSION: 1. Slight progression in patchy airspace opacities in the bilateral mid and lower lung zones most con cerning for pneumonia with differential including pulmonary edema. 2. Emphysema. Reviewed, dictated and finalized at location A. IMPRESSION: 1. Slight progression in patchy airspace opacities in the bilateral mid and low er lung zones most concerning for pneumonia with differential including pulmona ry edema. 2. Emphysema.
[2021-11-30 08:50] LABS: Glucose Point of Care 109 mg/dl (65-105)
--- NOTE | 2021-11-30 09:06 | PC.NURSE ---
[facility] given report on pt. made aware that pt is now involuntary. made aware of elopement and pd involvement. told to fax cbc, involuntary cert and petition upon completion . told to call when situation calms down.
--- NOTE | 2021-11-30 09:16 | ECG_ITS ---
Measurements Intervals [place] Rate: 63 P: 78 SC: 127 QRS: 88 QRSD: 90 T: 73 QT: 421 QTc: 432 Interpretive Statements SINUS RHYTHM LOW QRS VOLTAGE IN EXTREMITY LEADS [QRS DEFLECTION < 0.5 mV IN LIMB LEADS] ABNORMAL ECG COMPARED TO ECG 11/08/2021 07:26:18 NO PVCS Electronically Signed On 11-30-2021 20:42:00 CDT by Yogesh Parikh M.D.
--- NOTE | 2021-11-30 09:18 | PC.NURSE ---
Called [facility] (pts POA) per pt request, and given update on pt status and arrival to this ED. Asking any updates be called to this number.
--- NOTE | 2021-11-30 09:35 | PC.NURSE ---
Pt unable to provide urine sample at this time, declined straight cath, given urinal and call light and requesting more time to try.
[2021-11-30 09:44] LABS: Basophils Absolute Auto 0.1 K/mm3 (0.0-0.1); Basophils Percent Auto 0.6 % (0.2-1.2); Eosinophils Absolute Auto 0.1 K/mm3 (0-0.3); Eosinophils Percent Auto 0.4 % (0-4.4); Hematocrit 31.4 % (42.0-52.0); Hemoglobin 9.6 g/dL (14.0-18.0); Immature Granulocyte Absolute 0.11 K/mm3 (0.00-0.031); Immature Granulocyte Percent A 0.7 % (0-0.5); Lymphocytes Percent Auto 10.2 % (18.3-44.2); Mean Corpuscular HGB Conc 30.6 g/dl (32-36); Mean Corpuscular Volume 94.9 fl (80-100); Mean Platelet Volume 8.7 fl (7.4-10.4); Monocytes Absolute Auto 0.9 K/mm3 (0.1-0.6); Monocytes Percent Auto 5.7 % (2.6-8.5); Neutrophils Percent Auto 82.4 % (45.5-73.1); Platelet Count Result 371 k/mm3 (150-375); Red Blood Count 3.31 M/mm3 (4.6-6.20); Red Cell Distribution Width 15.4 % (11.5-14.5); White Blood Count 15.7 K/mm3 (4.5-10.0)
--- NOTE | 2021-11-30 09:45 | PC.NURSE ---
Pt to XRAY via stretcher at this time.
--- NOTE | 2021-11-30 09:47 | ED.RECABL ---
HPI - Recheck/Abnormal Lab/Rx General Chief Complaint: Recheck/Abnormal Lab/Rx <Suzy Robb PA-C - Last Filed: 11/30/21 13:57> Stated Complaint: Low BG <Suzy Robb PA-C - Last Filed: 11/30/21 13:57> Time Seen by Provider: 11/30/21 09:15 <ELHAM Bowden Last Filed: 11/30/21 13:57> Source: patient <ELHAM Bowden Last Filed: 11/30/21 13:57> Mode of arrival: EMS <ELHAM Bowden Last Filed: 11/30/21 13:57> Limitations: clinical condition <ELHAM Bowden Last Filed: 11/30/21 13:57> History of Present Illness HPI narrative: This is a 56-year-old male that presents to the emergency department for low blood sugar. Reportedly patient was found altered and lethargic in his room. Was given dose of glucagon for a blood sugar in the 50s. Patient also given D10 in route via EMS. Is now alert and oriented. Does not have any focalizing complaints. Denies fever, chest pain, shortness of breath, abdominal pain, vomiting, or dysuria. <Suzy Robb PA-C - Last Filed: 11/30/21 13:57> Related Data Home Medications: Home Medications Medication Instructions Recorded Confirmed levothyroxine [Euthyrox] 75 mcg PO DAILY 11/06/21 11/06/21 Cerovite 11/28/21 11/28/21 Daily Vitamin C Pack 11/28/21 Humalog U-100 Insulin 11/28/21 11/28/21 bisacodyl 11/28/21 11/28/21 <ELHAM Bowden Last Filed: 11/30/21 13:57> Allergies/Adverse Reactions: Allergies Allergy/AdvReac Type Severity Reaction Status Date / Time Penicillins Allergy Rash Verified 11/30/21 08:57 <ELHAM Bowden Last Filed: 11/30/21 13:57> Review of Systems Review of Systems: CONSTITUTIONAL: Denies fever CARDIOVASCULAR: Denies chest pain RESPIRATORY: Denies dyspnea. GASTROINTESTINAL: Denies abdominal pain, nausea, vomiting GENITOURINARY: Denies dysuria MUSCULOSKELETAL: Denies back pain, joint pain, or myalgia. NEUROLOGIC: Denies numbness, or weakness. <Suzy Robb PA-C - Last Filed: 11/30/21 13:57> All systems reviewed & are unremarkable except as noted in HPI and below <Suzy Robb PA-C - Last Filed: 11/30/21 13:57> FORMERLY [facility], [facility] Past Medical History Medical History: Medical History Diabetes 1.5, managed as type 2 Pancreatitis, alcoholic, acute Pulmonary embolism <Suzy Robb PA-C - Last Filed: 11/30/21 13:57> Family History Family History: Family History Sibling Depression Family history of pancreatic disease Mother Acute myocardial infarction, Onset Age: 60 <Suzy Robb PA-C - Last Filed: 11/30/21 13:57> Social History Social History: Social History Smoking packs per day: 1 Smoking cigarettes per day: 20.0 Years smoked: 22 Smoking pack-years: 22.00 Smoking status: Current every day smoker Alcohol intake: former Substance use: former Substance use type: marijuana, crack/cocaine, club/hat designer drugs and methamphetamine Spiritual care concerns: No <ELHAM Bowden Last Filed: 11/30/21 13:57> Exam Narrative: GENERAL: Well-appearing, thin, and in no acute distress. HEAD: Normocephalic, atraumatic. EYES: PERRLA and EOMI. ENT: Nares clear, no rhinorrhea or epistaxis. Mucous membranes moist. Oropharynx without tonsillar hypertrophy exudate or other lesions. Bilateral cerumen impaction CHEST: Clear to auscultation. No respiratory distress. No wheezes rales or rhonchi HEART: Regular rate and rhythm. No murmur heard. Normal peripheral pulses. ABDOMEN: Soft, nontender, nondistended, normal active bowel sounds. EXTREMITIES: Normal range of motion. No edema. Strength equal in bilateral upper and lower extremities (4/5) SKIN: Warm, dry, no rash. NEURO: No focal deficits. Alert and oriented x3. Cranial nerves II thro
[2021-11-30 09:53] LABS: Lipase 22 U/L (23-300)
[2021-11-30 09:54] LABS: Alanine Aminotransferase 11 U/L (4-50); Albumin Level 3.1 g/dL (3.5-5.1); Alkaline Phosphatase 347 U/L (38-126); Anion Gap 1 mmol/L (8-16); Aspartate Amino Transferase 24 U/L (17-59); Bilirubin,Total 0.3 mg/dL (0.2-1.3); Blood Urea Nitrogen 14 mg/dL (9-20); Calcium 8.4 mg/dL (8.4-10.2); Carbon Dioxide 33 mmol/L (22-30); Chloride 103 mmol/L (98-107); Estimated CRCL calculation 88 ml/min; Estimated Glomerular Filt Rate > 60; Glucose 117 mg/dL (65-110); INR 1.3; Potassium 3.9 mmol/L (3.4-5.0); Prothrombin Time 15.3 Seconds (11.1-14.7); Sodium 137 mmol/L (137-145)
[2021-11-30 09:55] LABS: Partial Thromboplastin Time 41.5 SECONDS (22.3-36.8)
[2021-11-30 10:25] LABS: Add Urine Microscopic? YES; Appearance Urine Cloudy (Clear); Bacteria Urine Trace /hpf; Bilirubin Urine Negative (Negative); Budding Yeast Urine Present /hpf; Color Urine Yellow (Yellow); Glucose Urine UA Negative (Negative); Ketones Urine Negative (Negative); Leukocyte Esterase Ur 3+ LEU/UL (Negative); Nitrate Urine Negative (Negative); Protein Urine 1+ mg/dL (Negative); RBC Urine >75 /hpf (0-2); Specific Grav Ur 1.012 (1.001-1.035); Urobilinogen Urine Negative mg/dL (<2.0); WBC Urine >75 /hpf
[2021-11-30 10:26] LABS: Blood Urine Negative (Negative)
[2021-11-30 10:42] LABS: NT Pro B Type Natriuretic Pept 716 pg/mL (5-100)
--- NOTE | 2021-11-30 10:59 | PC.NURSE ---
This RN noticed pt was sleepy/lethargic and declined pudding he had asked for earlier. Slurred speech. Re ck'd bedside glucose, BS 61, D10 at bedside from EMS RODEO CLOWN continued. Suzy De La Fuente PA-C made aware and discussed agreement in cont D10. Pt also attempting to eat applesauce at this time. Bedside report given to Joshua RAMIREZ
[2021-11-30 11:00] LABS: Glucose Point of Care 61 mg/dl (65-105)
[2021-11-30 11:26] LABS: Free T4 Free Thyroxine Reflex 1.31 ng/dL (0.78-2.19)
[2021-11-30 11:35] LABS: Influenza A QL RT-PCR Negative (Negative); Influenza B QL RT-PCR Negative (Negative); SARS-CoV-2 RNA PCR Negative
[2021-11-30 11:37] LABS: Glucose Point of Care 163 mg/dl (65-105)
[2021-11-30 12:29] LABS: Total Triiodothyronine (T3) 0.95 NG/ML (0.97-1.69)
[2021-11-30 12:45] LABS: Lactic Acid Reflex 1.1 mmol/L (0.7-2.1)
[2021-11-30 13:45] LABS: Glucose Point of Care 139 mg/dl (65-105)
--- NOTE | 2021-11-30 13:45 | PM.IMHP ---
H&P: HPI History of Present Illness Date/Time: 11/30/21 13:45 Chief Complaint: Hypoglycemia. Narrative: This is a 56-year-old male smoker with history of alcohol abuse, poorly controlled insulin-dependent diabetes, hypothyroidism, dysphagia with history of aspiration, pulmonary embolism, and chronic pancreatitis who presented to the emergency department via EMS from a local rehabilitation facility for evaluation of hypoglycemia. He is known to the hospitalist service with a recent admission between 11/06 and 11/19/2021 with sepsis secondary to pneumonia, UTI, and Klebsiella pneumoniae bacteremia and hyperosmolar hyperglycemic state. He failed a modified barium swallow initially and was started on tube feedings however dysphagia improved and he is now on a minced and moist diet at the intermediate. He was also started on Creon due to pancreatic insufficiency which was felt to be a contributing factor in his malnutrition, in addition to ongoing diarrhea. Hemoglobin A1c at that time with greater than 14% and it was noted that his glucose fluctuated widely during that stay, felt to be due to his gastroparesis and excessive oral intake. His insulin was adjusted and he was discharged with Lantus 20 units daily and insulin aspart 4 units t.i.d. with meals. He was also started on Eliquis after he was found to have a pulmonary embolism and he was started on fludrocortisone due to ongoing issues with soft blood pressures and orthostatic hypotension. He has unfortunately had several visits to the ER since discharge and today will be his 3rd such visit. He was seen on 11/25/2021 for a head injury after falling out of bed in which he sustained 2 scalp lacerations which were repaired. He was seen again on 11/28/2021 for evaluation of ongoing diarrhea in which he was treated with supportive care and discharged on metronidazole. No stool specimens were collected at that time. In any event, this morning he was found altered and lethargic in his room. Reportedly he was hypoglycemic in the 50s and he was given glucagon and D10. Not long after arrival to the emergency department he once again became altered and he has since been started on a dextrose drip. At the time my evaluation his only complaint is that of hunger and he is asking for a lunch tray. He does not believe that he was accidentally given extra insulin today but he does not think he was allowed to eat click enough after he was given mealtime insulin. He has no other complaints and he specifically denies fever, chills, sweats, cold and flu symptoms, chest pain, shortness a breath, cough, abdominal pain, nausea, vomiting, and dysuria. He continues to have intermittent diarrhea of which he is incontinent. With further questioning he has been incontinent of stool for couple of years ?because I just cannot feel when I a have to go.? Review of Systems Review of Systems: Twelve systems were reviewed. No headache or neck ache. No cold or flu symptoms. He has not had any recent issues with dysphagia and he denies concerns for aspiration. He apparently is eating a minced and moist diet at the intermediate; he tells me his dentures are at home though I am not sure why nobody has brought them to the intermediate for him to use. He denies urinary symptoms but he was noted to have urinary retention with his last visit, possibly due to neurogenic bladder or outlet obstruction. It is my understanding that he was referred to Urology though I do not think he has yet seen them in clinic. He has chronic neuropathy in his feet and hands which is unchanged. He also complains of some mild low back discomfort which he states is not unusual for him. He denies blurry vision, polyuria, and polydipsia. Except as documented, all other systems were reviewed and are negative. [facility] Past Medical History Medical History (Updated 11/30/21 @ 16:26 by Arabella Mckeon PA-C) Chronic anemia Diabetic peripheral neuropathy Fecal incontinence Gastroparesis History of
--- NOTE | 2021-11-30 14:13 | ADMGEN ---
This patient, Shad Rodriguez, was admitted to IMU Room 206-01 at 1348. Patient/family oriented to hospital policies and general routines including ID bracelet, bed and alarms, visiting hours, pain management, procedures, bathroom and other care routines, personal items, smoking policy, room service/diet, and visiting hours. Information on how to activate the Rapid Response Team has been discussed. Patient/Family are encouraged to report perceived risks to care and to ask questions if they do not understand what they are told or what they should do.
[2021-11-30 14:39] LABS: Glucose Point of Care 155 mg/dl (65-105)
[2021-11-30 15:04] LABS: Glucose Point of Care 97 mg/dl (65-105)
[2021-11-30 16:54] LABS: Glucose Point of Care 83 mg/dl (65-105)
[2021-11-30 16:54] LABS: Glucose Point of Care 81 mg/dl (65-105)
[2021-11-30] MEDS: MIDODRINE HCL 10 MG TABLET BY MOUTH (17:39)
[2021-11-30] MEDS: FERROUS SULFATE 324 MG TABLET PO (17:39)
[2021-11-30 18:04] LABS: Glucose Point of Care 177 mg/dl (65-105)
--- NOTE | 2021-11-30 18:54 | PC.NURSE ---
Patients is having a copius amount of liquid stool which contains undigested food. Fecal matter does not have any odor. Called Arabella Mckeon to notify her of situation and to tell her patient has a large pressure ulcer to coccyx. Arabella ordered Fecal Management device. Patient agreed to Device. Device was inserted and draining properly. Patient tolerated well.
[2021-11-30 19:06] LABS: Glucose Point of Care 253 mg/dl (65-105)
[2021-11-30 20:26] LABS: Glucose Point of Care 252 mg/dl (65-105)
[2021-11-30] MEDS: LIPASE/AMYLASE/PROTEASE 12,000 UNITS CAP 1 CAP PO (20:40)
[2021-11-30] MEDS: APIXABAN 5 MG TABLET PO (20:40)
[2021-11-30] MEDS: ASCORBIC ACID 500 MG TABLET PO (20:40)
[2021-11-30] MEDS: PREGABALIN (*CRX) 75 MG CAPSULE PO (20:40)
[2021-11-30] MEDS: metroNIDAZOLE 250 MG TABLET 500 MG PO (20:40)
[2021-11-30] MEDS: LOPERAMIDE HCL 2 MG CAPSULE PO (20:40)
[2021-11-30 22:34] LABS: Glucose Point of Care 315 mg/dl (65-105)
[2021-11-30] MEDS: INSULIN GLARGINE (*BKC) 100 UNITS/ML 10 UNITS SUB-Q (23:52)
[2021-12-01] VITALS (13 sets, daily range): BP systolic 65–100; BP diastolic 35–64; PULSE 66–80; RESP 14–20; TEMP 36.4–36.9; O2SAT 97–100
[2021-12-01] MEDS: LIPASE/AMYLASE/PROTEASE 12,000 UNITS CAP 1 CAP PO ×3 (05:15→22:37)
[2021-12-01] MEDS: metroNIDAZOLE 250 MG TABLET 500 MG PO ×3 (05:15→22:37)
[2021-12-01] MEDS: LEVOTHYROXINE SODIUM 75 MCG TABLET PO (05:15)
[2021-12-01 05:35] LABS: Hematocrit 24.4 % (42.0-52.0); Hemoglobin 7.7 g/dL (14.0-18.0); Mean Corpuscular HGB Conc 31.6 g/dl (32-36); Mean Corpuscular Hemoglobin 28.7 pg (26-34); Mean Platelet Volume 8.8 fl (7.4-10.4); Platelet Count Result 358 k/mm3 (150-375); Red Blood Count 2.68 M/mm3 (4.6-6.20); Red Cell Distribution Width 15.1 % (11.5-14.5); White Blood Count 7.9 K/mm3 (4.5-10.0)
[2021-12-01 05:42] LABS: Alanine Aminotransferase 9 U/L (4-50); Albumin Level 2.5 g/dL (3.5-5.1); Alkaline Phosphatase 266 U/L (38-126); Anion Gap 3 mmol/L (8-16); Aspartate Amino Transferase 20 U/L (17-59); Bilirubin,Total 0.1 mg/dL (0.2-1.3); Blood Urea Nitrogen 14 mg/dL (9-20); Calcium 7.7 mg/dL (8.4-10.2); Carbon Dioxide 32 mmol/L (22-30); Chloride 103 mmol/L (98-107); Estimated CRCL calculation 91 ml/min; Estimated Glomerular Filt Rate > 60; Glucose 226 mg/dL (65-110); Magnesium 1.7 mg/dL (1.6-2.3); Potassium 4.2 mmol/L (3.4-5.0); Sodium 138 mmol/L (137-145)
[2021-12-01 07:58] LABS: Glucose Point of Care 235 mg/dl (65-105)
[2021-12-01] MEDS: PREGABALIN (*CRX) 75 MG CAPSULE PO ×2 (08:37→22:36)
[2021-12-01] MEDS: INSULIN ASPART (*BKC) 100 UNITS/ML SUB-Q (08:37)
[2021-12-01] MEDS: FERROUS SULFATE 324 MG TABLET PO ×3 (08:37→15:52)
[2021-12-01] MEDS: FOLIC ACID 1 MG TABLET BY MOUTH (08:38)
[2021-12-01] MEDS: MULTIVITAMIN HEMATINIC (*BKC) TABLET 1 TABLET PO (08:38)
[2021-12-01] MEDS: FLUDROCORTISONE ACETATE 0.1 MG TABLET PO (08:38)
[2021-12-01] MEDS: MIDODRINE HCL 10 MG TABLET BY MOUTH ×3 (08:38→15:52)
[2021-12-01] MEDS: ZINC SULFATE 220 MG CAPSULE PO (08:38)
[2021-12-01] MEDS: ASCORBIC ACID 500 MG TABLET PO ×2 (08:38→22:36)
[2021-12-01] MEDS: DULoxetine HCL 20 MG CAPSULE.DR PO (08:39)
[2021-12-01] MEDS: CHOLECALCIFEROL 1,000 UNITS TABLET 1000 UNITS BY MOUTH (08:39)
[2021-12-01] MEDS: TAMSULOSIN HCL 0.4 MG CAPSULE PO (08:39)
[2021-12-01] MEDS: THIAMINE HCL 100 MG TABLET BY MOUTH (08:39)
[2021-12-01 12:54] LABS: Toxigenic C. Diff NEGATIVE (NEGATIVE)
[2021-12-01] MEDS: APIXABAN 5 MG TABLET PO ×2 (13:01→22:36)
[2021-12-01 13:33] LABS: Glucose Point of Care 91 mg/dl (65-105)
--- NOTE | 2021-12-01 15:30 | PCPTNOTE ---
Attempted Physical therapy evaluation, Per RN patient's BP was low upon standing and patient is not able to stand with fecal tube in. Will continue to follow.
[2021-12-01 16:34] LABS: Glucose Point of Care 146 mg/dl (65-105)
--- NOTE | 2021-12-01 16:41 | PC.NURSE ---
This patient, Shad Rodriguez, was transferred to 163 on 12/01/21 at 1641. Personal belongings sent with patient. Report given to Tabby RAMIREZ. Appropriate documentation sent with patient.
[2021-12-01 17:11] LABS: Glucose Point of Care 158 mg/dl (65-105)
--- NOTE | 2021-12-01 19:42 | PM.IMPN ---
Progress Note: A&P Assessment and Plan (1) Pneumonia: Code(s): J18.9 - Pneumonia, unspecified organism Status: Acute Assessment and Plan: Leukocytsis 15-->7.9 overnight on Ceftriaxone and metronidazole due to CXR concerning for aspiration pneumonia w/ hx of dysphagia. Afbrile. BCX pending. -procalcitonin for AM -Continue ceftriaxone and metronidazole (2) Hypoglycemia: Code(s): E16.2 - Hypoglycemia, unspecified Status: Acute Assessment and Plan: Resolved and patient has hyperglycemia. Will continue with SSI for now. Hold home insulin. (3) Diarrhea: Code(s): R19.7 - Diarrhea, unspecified Status: Acute Assessment and Plan: C. diff negative. All other stool studies pending. Abdominal xr w/ no obstruction. Due to duration and worsening will consult GI for AM. (4) Pulmonary embolism: Code(s): I26.99 - Other pulmonary embolism without acute cor pulmonale Status: Acute Assessment and Plan: Noted during last hospitalizaton. Continue apixaban. (5) Protein calorie malnutrition: Code(s): E46 - Unspecified protein-calorie malnutrition Status: Acute Assessment and Plan: Normal appetite. -Nutrition assessment (6) Pancreatic insufficiency: Code(s): K86.89 - Other specified diseases of pancreas Status: Acute Assessment and Plan: Creon started. (7) Insulin dependent type 2 diabetes mellitus: Code(s): E11.9 - Type 2 diabetes mellitus without complications; Z79.4 - exterminator (current) use of insulin Status: Acute Assessment and Plan: SSI for now. Subjective Date/time seen: Date of Service 12/01/21 1200 Patient says he feels much better except for this constant diarrhea he has had for about the past 3-4 months. He says it started around August 2021 and has worsened over the past few months. He now has a rectal tube that he says is painful. Denies dark or blood stools. Says the only thing that will slow down the diarrhea is Imodium, which does not relieve it but just slows it down. Currently lives in a SNF and plans to transfer to an assisted living faciity one he completes his physical therapy. Denies abdominal pain associated with the diarrhea. Exam Narrative: GENERAL: NAD, cachectic HEENT: Normocephalic, atraumatic, anicteric, nares clear, edentulous, bitemporal wasting NECK: No bruits bilaterally, no JVD, no thyromegaly, no lymphadenopathy CV: Normal S1, S2, RRR, No MRG RESP: CTAB, Normal work of breathing. Abdomen: Soft, non-tender, non-distended, normoactive bowel sounds EXTREMITIES: Warm and well perfused, no clubbing, cyanosis, or edema. SKIN: warm, dry and intact. NEURO: CN 2-12 grossly intact. Objective Data Vital Signs Vital Signs: Vital Signs - 24 hr 11/30/21 19:52 11/30/21 19:55 11/30/21 20:00 Temperature 98.0 F Pulse Rate 70 69 70 Respiratory Rate 20 Blood Pressure 95/60 L Pulse Oximetry 97 11/30/21 22:00 11/30/21 23:37 12/01/21 00:00 Temperature 98.9 F Pulse Rate 77 77 69 Respiratory Rate 18 Blood Pressure 92/52 L Pulse Oximetry 97 12/01/21 02:00 12/01/21 03:15 12/01/21 04:00 Temperature 97.8 F Pulse Rate 66 66 72 Respiratory Rate 20 Blood Pressure 100/51 L Pulse Oximetry 97 12/01/21 06:00 12/01/21 08:00 12/01/21 10:00 Temperature 98.4 F Pulse Rate 67 69 80 Respiratory Rate 15 Blood Pressure 98/64 L Pulse Oximetry 97 12/01/21 12:00 12/01/21 12:01 12/01/21 12:02 Temperature 98.4 F Pulse Rate 69 Respiratory Rate 15 Blood Pressure 98/64 L 85/55 L 65/35 L Pulse Oximetry 97 12/01/21 16:00 Temperature 98.2 F Pulse Rate Respiratory Rate 14 Blood Pressure 92/52 L Pulse Oximetry 98 Intake/Output Intake/Output: Intake & Output 11/28/21 11/29/21 11/30/21 12/01/21 23:59 23:59 23:59 23:59 Intake Total 340 1250 Output Total 780 475 Balance -052 905
[2021-12-01 22:43] LABS: Glucose Point of Care 467 mg/dl (65-105)
[2021-12-02] MEDS: INSULIN ASPART (*BKC) 100 UNITS/ML SUB-Q ×4 (01:01→17:38)
[2021-12-02] MEDS: INSULIN GLARGINE (*BKC) 100 UNITS/ML 10 UNITS SUB-Q (01:01)
[2021-12-02 01:12] LABS: Glucose Point of Care 433 mg/dl (65-105)
[2021-12-02] MEDS: LIPASE/AMYLASE/PROTEASE 12,000 UNITS CAP 1 CAP PO ×2 (05:46→12:50)
[2021-12-02] MEDS: metroNIDAZOLE 250 MG TABLET 500 MG PO ×3 (05:46→22:26)
[2021-12-02] MEDS: LEVOTHYROXINE SODIUM 75 MCG TABLET PO (05:47)
[2021-12-02 06:12] VITALS: BP 95/59; PULSE 54; RESP 16; TEMP 36.1; O2SAT 100
[2021-12-02 06:16] LABS: Glucose Point of Care 286 mg/dl (65-105)
[2021-12-02 06:30] LABS: Basophils Absolute Auto 0.1 K/mm3 (0.0-0.1); Basophils Percent Auto 0.9 % (0.2-1.2); Eosinophils Absolute Auto 0.2 K/mm3 (0-0.3); Eosinophils Percent Auto 2.1 % (0-4.4); Hematocrit 27.9 % (42.0-52.0); Hemoglobin 8.7 g/dL (14.0-18.0); Immature Granulocyte Absolute 0.07 K/mm3 (0.00-0.031); Immature Granulocyte Percent A 0.9 % (0-0.5); Lymphocytes Absolute Auto 1.78 K/mm3 (0.9-3.2); Lymphocytes Percent Auto 22.5 % (18.3-44.2); Mean Corpuscular HGB Conc 31.2 g/dl (32-36); Mean Corpuscular Hemoglobin 28.7 pg (26-34); Mean Corpuscular Volume 92.1 fl (80-100); Mean Platelet Volume 8.6 fl (7.4-10.4); Monocytes Absolute Auto 0.6 K/mm3 (0.1-0.6); Monocytes Percent Auto 7.6 % (2.6-8.5); Neutrophils Absolute Auto 5.2 K/mm3 (1.3-6.7); Platelet Count Result 377 k/mm3 (150-375); Red Blood Count 3.03 M/mm3 (4.6-6.20); Red Cell Distribution Width 14.7 % (11.5-14.5); White Blood Count 7.9 K/mm3 (4.5-10.0)
[2021-12-02 06:59] LABS: Anion Gap 4 mmol/L (8-16); Blood Urea Nitrogen 13 mg/dL (9-20); Calcium 7.7 mg/dL (8.4-10.2); Carbon Dioxide 30 mmol/L (22-30); Chloride 103 mmol/L (98-107); Estimated CRCL calculation 83 ml/min; Estimated Glomerular Filt Rate > 60; Glucose 285 mg/dL (65-110); Potassium 3.4 mmol/L (3.4-5.0); Sodium 137 mmol/L (137-145)
[2021-12-02 08:00] VITALS: BP 84/60; PULSE 60; RESP 16; TEMP 36.3; O2SAT 100
[2021-12-02 08:04] LABS: Glucose Point of Care 258 mg/dl (65-105)
[2021-12-02] MEDS: FLUDROCORTISONE ACETATE 0.1 MG TABLET PO (08:37)
[2021-12-02] MEDS: DULoxetine HCL 20 MG CAPSULE.DR PO (08:37)
[2021-12-02] MEDS: MULTIVITAMIN HEMATINIC (*BKC) TABLET 1 TABLET PO (08:37)
[2021-12-02] MEDS: FERROUS SULFATE 324 MG TABLET PO ×3 (08:37→15:58)
[2021-12-02] MEDS: TAMSULOSIN HCL 0.4 MG CAPSULE PO (08:37)
[2021-12-02] MEDS: THIAMINE HCL 100 MG TABLET BY MOUTH (08:37)
[2021-12-02] MEDS: ASCORBIC ACID 500 MG TABLET PO ×2 (08:37→22:27)
[2021-12-02] MEDS: CHOLECALCIFEROL 1,000 UNITS TABLET 1000 UNITS BY MOUTH (08:37)
[2021-12-02] MEDS: ZINC SULFATE 220 MG CAPSULE PO (08:37)
[2021-12-02] MEDS: MIDODRINE HCL 10 MG TABLET BY MOUTH ×3 (08:38→15:58)
[2021-12-02] MEDS: FOLIC ACID 1 MG TABLET BY MOUTH (08:38)
[2021-12-02] MEDS: APIXABAN 5 MG TABLET PO ×2 (08:38→22:27)
[2021-12-02] MEDS: PREGABALIN (*CRX) 75 MG CAPSULE PO ×2 (08:43→22:30)
[2021-12-02 11:21] LABS: Glucose Point of Care 233 mg/dl (65-105)
[2021-12-02 12:13] VITALS: BP 100/62; PULSE 66; RESP 16; TEMP 36.3; O2SAT 100
[2021-12-02] MEDS: CALCIUM CARBONATE (TUMS) 500 MG (200 MG ELEMENTAL) PO ×2 (12:47→15:58)
--- NOTE | 2021-12-02 13:22 | PCPTNOTE ---
Attempted physical therapy evaluation, Per RN patient is not able to be seen due to having fecal tube in. RN request therapist return tomorrow due to possible removal of fecal tube. Will continue to follow.
[2021-12-02 13:37] VITALS: BP 112/58; PULSE 68; RESP 16; TEMP 36.3; O2SAT 100
[2021-12-02 13:43] VITALS: BMI 13.4
--- NOTE | 2021-12-02 14:33 | PM.IMPN ---
Progress Note: A&P Assessment and Plan (1) Pneumonia: Code(s): J18.9 - Pneumonia, unspecified organism Status: Acute Assessment and Plan: Leukocytosis 15-->7.9 overnight on Ceftriaxone and metronidazole due to CXR concerning for aspiration pneumonia w/ hx of dysphagia. Afebrile. BCX with no growth. -Discharge to facility -Discontinue ceftriaxone -Discontinue flagyl -Will give Moxifloxacin 400 mg po daily at discharge (2) Hypoglycemia: Code(s): E16.2 - Hypoglycemia, unspecified Status: Acute Assessment and Plan: Resolved and patient has hyperglycemia. Resume home glargine 10 units qam and SSI for discharge. (3) Diarrhea: Code(s): R19.7 - Diarrhea, unspecified Status: Acute Assessment and Plan: C. diff negative. Appreciate recommendations from GI. Will continue creon 2 tabs TIDWM for discharge. (4) Pulmonary embolism: Code(s): I26.99 - Other pulmonary embolism without acute cor pulmonale Status: Acute Assessment and Plan: Noted during last hospitalizaton. Continue apixaban. (5) Protein calorie malnutrition: Code(s): E46 - Unspecified protein-calorie malnutrition Status: Acute Assessment and Plan: Normal appetite. (6) Pancreatic insufficiency: Code(s): K86.89 - Other specified diseases of pancreas Status: Acute Assessment and Plan: Creon dose increased to two tabs three times a day with meals. (7) Insulin dependent type 2 diabetes mellitus: Code(s): E11.9 - Type 2 diabetes mellitus without complications; Z79.4 - half-way (current) use of insulin Status: Acute Assessment and Plan: Resume home glargine 10 units qAM and SSI with meals. Subjective Date/time seen: Date of Service 12/02/21 14:33 Late entry as discharge was held overnight due to unforseen need for re-evaluation by PT to return to facilty. Patient says he can go home and that he feels better. He feels he can control the diarrhea with imodium at the facility. Review of Systems Gastrointestinal: Gastrointestinal: Reports diarrhea, Denies nausea and Denies vomiting Exam Narrative: GENERAL: NAD, cooperative HEENT: Normocephalic, atraumatic, anicteric, nares clear, oropharynx moist and clear, edentulous, bitemporal wasting NECK: Supple CV: Normal S1, S2, RRR, No MRG RESP: CTAB, Normal work of breathing. Abdomen: Soft, non-tender, non-distended EXTREMITIES: Warm and well perfused, no clubbing, cyanosis, or edema. SKIN: warm, dry and intact. NEURO:CN 2-12 grossly intact. Objective Data Vital Signs Vital Signs: Vital Signs - 24 hr 12/02/21 20:35 12/02/21 22:00 12/03/21 05:47 Temperature 97.6 F 97.0 F L Pulse Rate 63 63 66 Respiratory Rate 16 16 16 Blood Pressure 79/49 L 92/53 L Pulse Oximetry 100 100 100 Intake/Output Intake/Output: Intake & Output 11/30/21 12/01/21 12/02/21 12/03/21 23:59 23:59 23:59 23:59 Intake Total 340 1300 3000 1110 Output Total 514 550 9646 300 Balance -440 825 850 810 Meds/Results Medications: Active Medications Generic Name Dose Route Start Last Admin Trade Name Freq PRN Reason Stop Dose Admin Lipase/Protease/Amylase 2 cap 12/02/21 17:00 12/03/21 12:12 Lipase/Amylase/Protease 12,000 Units Cap PO 2 cap TIDWM CINDY Administration Apixaban 5 mg 11/30/21 21:00 12/03/21 08:10 Apixaban 5 Mg Tablet PO 5 mg Q12HR CINDY Administration Ascorbic Acid 500 mg 11/30/21 21:00 12/03/21 08:10 Ascorbic Acid 500 Mg Tablet PO 500 mg Q12HR CINDY Administration Calcium Carbonate 200 mg 12/02/21 09:00 12/03/21 12:13 Calcium Carbonate (Tums) 500 Mg (200 Mg Elemental) PO 12/04/21 23:59 200 mg TID CINDY Administration Dextrose 12.5 gm 11/30/21 12:31 Dextrose 50% 25 Gm/50 Ml Syringe IV PUSH PRN PRN Hypoglycemia Protocol Duloxetine HCl 20 mg 12/01/21 09:00 12/03/21 08:11 Duloxetine Hcl 2
--- NOTE | 2021-12-02 14:46 | WPDGICN ---
Assessment and Plan Assessment and plan (1) Diarrhea: Code(s): R19.7 - Diarrhea, unspecified Status: Acute Assessment and Plan: Diarrhea appears be multifactorial. Pancreatic insufficiency appears likely given his abnormal fecal pancreatic elastase measurement. CT scan also consistent with chronic pancreatitis with calcifications. Pancreatic enzymes have been started but it is uncertain whether these been continued as an outpatient. Likely this contributes to his diarrhea. Additionally because of his severe diabetes he undoubtedly has some component of diabetic diarrhea. Other comorbid diseases such as alcoholism antibiotic use for his pneumonia and urinary tract infection likely contribute to diarrhea as well. Patient recently started on Reglan for diabetic gastroparesis also potentially would contribute to his diarrhea. Plan is for pancreatic enzymes. Controlling his diabetes. Balanced diet all would be beneficial. Will follow with you. (2) Chronic pancreatitis: Code(s): K86.1 - Other chronic pancreatitis Status: Acute Assessment and Plan: Chronic pancreatitis evident on CT scan likely from prior alcohol use. Continued alcohol avoidance encouraged. (3) Pancreatic insufficiency: Code(s): K86.89 - Other specified diseases of pancreas Status: Acute Assessment and Plan: Patient now on pancreatic enzyme supplementation with meals and with snacks. This should continue after discharge. (4) Gastroparesis: Code(s): K31.84 - Gastroparesis Status: Acute Assessment and Plan: Patient felt to have diabetic gastroparesis. Brief trial of metoclopramide may be beneficial but this cannot be used long-term. (5) Pneumonia: Code(s): J18.9 - Pneumonia, unspecified organism Status: Acute (6) Diabetes 1.5, managed as type 2: Code(s): E13.9 - Other specified diabetes mellitus without complications Status: Acute GI Consult Note Consult date/time: 12/02/21 14:46 HPI: Shad Rodriguez is a 56 year old male I am asked to see in consult because of diarrhea. Patient seen in consult for diarrhea initially on 11/06/2021 at the time of last admission. Patient states he has had diarrhea for several months. It appears to occur intermittently. No bleeding has been identified. Patient recently underwent a CT scan suggesting chronic pancreatitis. After last admission fecal elastase was evaluated found to be very low consistent with pancreatic insufficiency. Patient has multiple comorbid diseases including sepsis and pneumonia at the time of admission. He has an extensive history of alcohol intake. Denies active alcoholism at present. As stated he significant diabetes. At the time of last admission Creon pancreatic enzyme supplementation was advised but is uncertain whether he is taking this at home. Patient does not know his medications. Patient is felt to likewise have an underlying history of diabetic gastroparesis. Trial of Reglan was advised at the time of admission which could contribute to diarrhea. It is uncertain if he has been taking this medication. Review of Systems Review of Systems: All systems reviewed & are unremarkable except as noted in HPI and below PMFSH Past Medical History Medical History (Updated 11/30/21 @ 16:26 by Arabella Mckeon PA-C) Chronic anemia Diabetic peripheral neuropathy Fecal incontinence Gastroparesis History of alcohol abuse Hypothyroidism Insulin dependent type 2 diabetes mellitus Hemoglobin A1c was greater than 14% on 11/07/2021. Pancreatic insufficiency Pancreatitis Protein calorie malnutrition Pulmonary embolism Tobacco dependence Surgical History Surgical History (Updated 11/30/21 @ 16:17 by Arabella Mckeon PA-C) History of endoscopic retrograde cholangiopancreatography Patient reports pancreatic stent x2. Family History Family History (Reviewed 11/30/21 @ 16:18 by Arabella Felipe
--- NOTE | 2021-12-02 15:44 | PM.DS ---
DS: Admitting Diagnosis Discharge Date 12/02/2021 Admitting Diagnosis Hypoglycemia DS: Discharge Diagnosis Discharge Diagnosis (1) Pneumonia: Code(s): J18.9 - Pneumonia, unspecified organism Status: Acute Assessment and Plan: Leukocytosis 15-->7.9 overnight on Ceftriaxone and metronidazole due to CXR concerning for aspiration pneumonia w/ hx of dysphagia. Afebrile. BCX with no growth at discharge but not finalized. -Discharge to facility -Discontinue ceftriaxone -Discontinue flagyl -Moxifloxacin 400 mg po daily (2) Hypoglycemia: Code(s): E16.2 - Hypoglycemia, unspecified Status: Acute Assessment and Plan: Resolved and patient has hyperglycemia. Resume home glargine 10 units qam and SSI for discharge. (3) Diarrhea: Code(s): R19.7 - Diarrhea, unspecified Status: Acute Assessment and Plan: C. diff negative. Appreciate recommendations from GI. Will continue creon 2 tabs TIDWM for discharge. (4) Pulmonary embolism: Code(s): I26.99 - Other pulmonary embolism without acute cor pulmonale Status: Acute Assessment and Plan: Noted during last hospitalizaton. Continue apixaban. (5) Protein calorie malnutrition: Code(s): E46 - Unspecified protein-calorie malnutrition Status: Acute Assessment and Plan: Normal appetite. (6) Pancreatic insufficiency: Code(s): K86.89 - Other specified diseases of pancreas Status: Acute Assessment and Plan: Creon dose increased to two tabs three times a day with meals. 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 DS: Summary Hospital Course Hospital Course: 56-year-old male smoker with history of alcohol abuse, poorly controlled insulin-dependent diabetes, hypothyroidism, dysphagia with history of aspiration, pulmonary embolism, and chronic pancreatitis who presented to the emergency department via EMS from a local rehabilitation facility for evaluation of hypoglycemia. Patient had also been having diarrhea since August 2022. Patient hypoglycemia was treated and glargine was held during entire hospitalization. Patient had hyperglycemia during the hospitalization. Patient was started on glargine 10 units qAM and sliding scale with meals for discharge to facility. Gastroenterology was consulted due to the significant diarrhea and thought it to be multifactorial. Pancrelipase was increased for discharge. Giardia and cryptosporidium were negative. Shiga toxin and Campylobacter were negative. Salmonella was pending at discharge. During prior hospitalization patient was found to have dysphagia so his diet was changed to soft and bite sized. On admission, patient cxr concerning for aspiration pneumonia, so patient was treated with ceftriaxone and metronidazole, which was transitioned to oral moxifloxacin for three additional days of treatment at discharge. Patient had been on flagyl on admission. C. diff was negative. Flagyl was discontinued. Patient discharged back to facility to continue rehab. Time Spent with Patient Time attestation: Total time spent providing and/or coordinating discharge services: Greater than 30 minutes. Exam Narrative: GENERAL: NAD, cachectic HEENT: Normocephalic, atraumatic, anicteric, nares clear, edentulous, bitemporal wasting NECK: No bruits bilaterally, no JVD, no thyromegaly, no lymphadenopathy CV: Normal S1, S2, RRR, No MRG RESP: CTAB, Normal work of breathing. Abdomen: Soft, non-tender, non-distended, normoactive bowel sounds EXTREMITIES: Warm and well perfused, no clubbing, cyanosis, or edema. SKIN: warm, dry and intact. NEURO: CN 2-12 grossly intact. DS: Data Data Completed and Pending Completed [place]
[2021-12-02] MEDS: LIPASE/AMYLASE/PROTEASE 12,000 UNITS CAP 2 CAP PO (15:59)
[2021-12-02 16:23] LABS: Glucose Point of Care 359 mg/dl (65-105)
[2021-12-02 20:35] VITALS: PULSE 63; RESP 16; O2SAT 100
[2021-12-02 22:00] VITALS: BP 79/49; PULSE 63; RESP 16; TEMP 36.4; O2SAT 100
[2021-12-02 22:55] LABS: Glucose Point of Care 368 mg/dl (65-105)
[2021-12-03] MEDS: metroNIDAZOLE 250 MG TABLET 500 MG PO ×2 (05:46→16:12)
[2021-12-03 05:47] VITALS: BP 92/53; PULSE 66; RESP 16; TEMP 36.1; O2SAT 100
[2021-12-03] MEDS: LEVOTHYROXINE SODIUM 75 MCG TABLET PO (05:47)
--- NOTE | 2021-12-03 07:36 | WPDGIPROGNO ---
Progress Note: A&P Assessment and Plan (1) Pancreatic insufficiency: Code(s): K86.89 - Other specified diseases of pancreas Status: Acute Assessment and Plan: Patient appears to have underlying pancreatic insufficiency likely related to a prior heavy alcohol use. Pancreatic enzyme supplementation should be given at this time period as pancreatic insufficiency likely contributes to his ongoing diarrhea. Continued alcohol avoidance strongly encouraged. (2) Insulin dependent type 2 diabetes mellitus: Code(s): E11.9 - Type 2 diabetes mellitus without complications; Z79.4 - long term care phlebotomist (current) use of insulin Status: Acute Assessment and Plan: Patient with diabetes mellitus. It is likely patient also has diabetic diarrhea related to neuropathy from diabetes. (3) Gastroparesis: Code(s): K31.84 - Gastroparesis Status: Acute Assessment and Plan: Patient currently tolerating diet without difficulty. Would limit use of metoclopramide to p.r.n. only when symptoms seemed to worsen. (4) UTI (urinary tract infection): Code(s): N39.0 - Urinary tract infection, site not specified Status: Acute Assessment and Plan: Patient now recovering from urinary tract infection in addition to his other comorbid diseases. Infection may contribute to his diarrhea as may antibiotics used to treat this. Subjective Date/time seen: 12/03/21 07:36 Patient tolerating diet. Diarrhea appears to have lessened. May be intermittent. Patient denies any bleeding or abdominal pain. Review of Systems Review of Systems: All systems reviewed & are unremarkable except as noted in HPI and below Exam Narrative: On physical exam patient is alert abdomen is soft bowel sounds are present no organomegaly evident. Objective Data Vital Signs Vital Signs: Vital Signs - 24 hr 12/02/21 08:00 12/02/21 12:13 12/02/21 13:37 Temperature 97.4 F L 97.4 F L 97.4 F L Pulse Rate 60 66 68 Respiratory Rate 16 16 16 Blood Pressure 84/60 L 100/62 112/58 L Pulse Oximetry 100 100 100 12/02/21 20:35 12/02/21 22:00 12/03/21 05:47 Temperature 97.6 F 97.0 F L Pulse Rate 63 63 66 Respiratory Rate 16 16 16 Blood Pressure 79/49 L 92/53 L Pulse Oximetry 100 100 100 Intake/Output Intake/Output: Intake & Output 03/27/22 12/01/21 12/02/21 12/03/21 23:59 23:59 23:59 23:59 Intake Total 340 1300 3000 750 Output Total 938 145 6471 300 Balance -440 825 850 450 Meds/Results Medications: Active Medications Generic Name Dose Route Start Last Admin Trade Name Freq PRN Reason Stop Dose Admin Lipase/Protease/Amylase 2 cap 12/02/21 17:00 12/02/21 15:59 Lipase/Amylase/Protease 12,000 Units Cap PO 2 cap TIDWM CINDY Administration Apixaban 5 mg 11/30/21 21:00 12/02/21 22:27 Apixaban 5 Mg Tablet PO 5 mg Q12HR CINDY Administration Ascorbic Acid 500 mg 11/30/21 21:00 12/02/21 22:27 Ascorbic Acid 500 Mg Tablet PO 500 mg Q12HR CINDY Administration Calcium Carbonate 200 mg 12/02/21 09:00 12/02/21 15:58 Calcium Carbonate (Tums) 500 Mg (200 Mg Elemental) PO 12/04/21 23:59 200 mg TID CINDY Administration Dextrose 12.5 gm 11/30/21 12:31 Dextrose 50% 25 Gm/50 Ml Syringe IV PUSH PRN PRN Hypoglycemia Protocol Duloxetine HCl 20 mg 12/01/21 09:00 12/02/21 08:37 Duloxetine Hcl 20 Mg Capsule.Dr PO 20 mg QAM CINDY Administration Ferrous Sulfate 324 mg 11/30/21 17:00 12/02/21 15:58 Ferrous Sulfate 324 Mg Tablet PO 324 mg TIDWM CINDY Administration Fludrocortisone Acetate 0.1 mg 12/01/21 08:00 12/02/21 08:37 Fludrocortisone Acetate 0.1 Mg Tablet PO 0.1 mg DAILY@0800 CINDY Administration Folic Acid 1 mg 12/01/21 09:00 12/02/21 08:38 Folic Acid 1 Mg Tablet BY MOUTH 1 mg DAILY CINDY Administration Glucagon 1 mg 11/30/21 12:31 Glucagon For Inj 1 Mg Vial IM PRN PRN Hypoglycemia Protocol Glucose
[2021-12-03] MEDS: MIDODRINE HCL 10 MG TABLET BY MOUTH ×2 (08:08→12:13)
[2021-12-03] MEDS: CALCIUM CARBONATE (TUMS) 500 MG (200 MG ELEMENTAL) PO ×2 (08:08→12:13)
[2021-12-03] MEDS: ZINC SULFATE 220 MG CAPSULE PO (08:09)
[2021-12-03] MEDS: CHOLECALCIFEROL 1,000 UNITS TABLET 1000 UNITS BY MOUTH (08:09)
[2021-12-03] MEDS: MULTIVITAMIN HEMATINIC (*BKC) TABLET 1 TABLET PO (08:10)
[2021-12-03] MEDS: ASCORBIC ACID 500 MG TABLET PO (08:10)
[2021-12-03] MEDS: FOLIC ACID 1 MG TABLET BY MOUTH (08:10)
[2021-12-03] MEDS: APIXABAN 5 MG TABLET PO (08:10)
[2021-12-03] MEDS: THIAMINE HCL 100 MG TABLET BY MOUTH (08:10)
[2021-12-03] MEDS: FLUDROCORTISONE ACETATE 0.1 MG TABLET PO (08:11)
[2021-12-03] MEDS: TAMSULOSIN HCL 0.4 MG CAPSULE PO (08:11)
[2021-12-03] MEDS: FERROUS SULFATE 324 MG TABLET PO ×2 (08:11→12:13)
[2021-12-03] MEDS: DULoxetine HCL 20 MG CAPSULE.DR PO (08:11)
[2021-12-03] MEDS: PREGABALIN (*CRX) 75 MG CAPSULE PO (08:16)
[2021-12-03 08:19] LABS: Glucose Point of Care 130 mg/dl (65-105)
[2021-12-03] MEDS: LIPASE/AMYLASE/PROTEASE 12,000 UNITS CAP 2 CAP PO ×2 (10:26→12:12)
[2021-12-03 12:02] LABS: Glucose Point of Care 251 mg/dl (65-105)
[2021-12-03] MEDS: LOPERAMIDE HCL 2 MG CAPSULE PO (12:19)
[2021-12-03] MEDS: POTASSIUM CHLORIDE 20 MEQ TABLET 40 MEQ PO (12:20)
[2021-12-03] MEDS: INSULIN ASPART (*BKC) 100 UNITS/ML SUB-Q (12:23)
[2021-12-03 14:00] VITALS: BP 78/40; PULSE 70; RESP 14; TEMP 36.4; O2SAT 100
--- NOTE | 2021-12-03 14:39 | PM.DS ---
DS: Admitting Diagnosis Discharge Date 11/30/2021 Admitting Diagnosis Hypoglycemia DS: Discharge Diagnosis Discharge Diagnosis (1) Pneumonia: Code(s): J18.9 - Pneumonia, unspecified organism Status: Acute Assessment and Plan: Leukocytosis 15-->7.9 overnight on Ceftriaxone and metronidazole due to CXR concerning for aspiration pneumonia w/ hx of dysphagia. Afebrile. BCX with no growth at discharge. -Discharge to facility -Discontinue ceftriaxone -Discontinue flagyl -Will give Moxifloxacin 400 mg po daily at discharge (2) Hypoglycemia: Code(s): E16.2 - Hypoglycemia, unspecified Status: Acute Assessment and Plan: Resolved and patient has hyperglycemia. Resume home glargine 10 units qam and SSI for discharge. (3) Diarrhea: Code(s): R19.7 - Diarrhea, unspecified Status: Acute Assessment and Plan: C. diff negative. Appreciate recommendations from GI. Will continue creon 2 tabs TIDWM for discharge. (4) Pulmonary embolism: Code(s): I26.99 - Other pulmonary embolism without acute cor pulmonale Status: Acute Assessment and Plan: Noted during last hospitalizaton. Continue apixaban. (5) Protein calorie malnutrition: Code(s): E46 - Unspecified protein-calorie malnutrition Status: Acute Assessment and Plan: Normal appetite. (6) Pancreatic insufficiency: Code(s): K86.89 - Other specified diseases of pancreas Status: Acute Assessment and Plan: Creon dose increased to two tabs three times a day with meals. 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 DS: Summary Hospital Course Hospital Course: 56-year-old male smoker with history of alcohol abuse, poorly controlled insulin-dependent diabetes, hypothyroidism, dysphagia with history of aspiration, pulmonary embolism, and chronic pancreatitis who presented to the emergency department via EMS from a local rehabilitation facility for evaluation of hypoglycemia. Patient had also been having diarrhea since August 2022. Patient hypoglycemia was treated and glargine was held during entire hospitalization. Patient had hyperglycemia during the hospitalization. Patient was started on glargine 10 units qAM and sliding scale with meals for discharge to facility. Gastroenterology was consulted due to the significant diarrhea and thought it to be multifactorial. Pancrelipase was increased for discharge. Giardia and cryptosporidium were negative. Shiga toxin and Campylobacter were negative. Salmonella was pending at discharge. During prior hospitalization patient was found to have dysphagia so his diet was changed to soft and bite sized. On admission, patient cxr concerning for aspiration pneumonia, so patient was treated with ceftriaxone and metronidazole, which was transitioned to oral moxifloxacin for three additional days of treatment at discharge. Patient had been on flagyl on admission. C. diff was negative. Flagyl was discontinued. Patient discharged back to facility to continue rehab. Time Spent with Patient Time attestation: Total time spent providing and/or coordinating discharge services: Exam Narrative: GENERAL: NAD, cooperative HEENT: Normocephalic, atraumatic, anicteric, nares clear, oropharynx moist and clear, edentulous, bitemporal wasting NECK: Supple CV: Normal S1, S2, RRR, No MRG RESP: CTAB, Normal work of breathing. Abdomen: Soft, non-tender, non-distended EXTREMITIES: Warm and well perfused, no clubbing, cyanosis, or edema. SKIN: warm, dry and intact. NEURO:CN 2-12 grossly intact. DS: Data Data Completed and Pending Labs on day of discharge: Labs from last 24 hours 12/03/21 12/03/21 12/03/21 14:25
[2021-12-03 14:44] LABS: EDCOVIDSCREEN Negative (Negative)
== END 2021-12-03 16:50 | DRG 637 ==
LOC: ANHED 12:38 → ANHIMU 13:03 → ANH3MEDSUR 12-01 16:24
PROVIDERS: Physician Assistant; Admitting Provider Internal Medicine; Emergency Provider Emergency Medicine; PCP Internal Medicine; Visit Provider Family Medicine
DX: E11.649 Type 2 diabetes mellitus with hypoglycemia without coma (principal); J18.9 Pneumonia, unspecified organism; I26.99 Other pulmonary embolism without acute cor pulmonale; K86.1 Other chronic pancreatitis; E46 Unspecified protein-calorie malnutrition; E11.65 Type 2 diabetes mellitus with hyperglycemia; K86.89 Other specified diseases of pancreas; Z20.822 Contact with and (suspected) exposure to COVID-19; E11.42 Type 2 diabetes mellitus with diabetic polyneuropathy; E11.43 Type 2 diabetes mellitus with diabetic autonomic (poly)neuropathy; K31.84 Gastroparesis; E03.9 Hypothyroidism, unspecified; R13.10 Dysphagia, unspecified; I95.9 Hypotension, unspecified; R19.7 Diarrhea, unspecified; R93.89 Abnormal findings on diagnostic imaging of other specified body structures; D64.9 Anemia, unspecified; R82.90 Unspecified abnormal findings in urine; Z72.89 Other problems related to lifestyle; Z79.01 Long term (current) use of anticoagulants; Z79.4 Long term (current) use of insulin; Z79.899 Other long term (current) drug therapy; Z88.0 Allergy status to penicillin
CPT/HCPCS: 36415; 70450; 71046; 74018; 80048; 80053; 81001; 82948; 83605; 83690; 83735; 83880; 84439; 84443; 84480; 85025; 85027; 85610; 85730; 87040; 87045; 87086; 87088; 87269; 87272; 87426; 87427; 87493; 87502; 89055; 93005; 96365; 96366; 97110; 97161; 97165; 99285; A9270; C9803; G0378; J0696; J1815; U0003; U0005

== ENCOUNTER 2021-12-19 19:25 | Emergency (ER) | payer OTHER, MEDICAID, SELFPAY ==
[2021-12-19] VITALS (33 sets, daily range): BP systolic 74–103; BP diastolic 42–68; PULSE 65–118; RESP 14–32; TEMP 36.4; O2SAT 99–100
[2021-12-19 19:36] LABS: Glucose Point of Care 161 mg/dl (65-105)
--- NOTE | 2021-12-19 19:37 | ED.GENADULT ---
HPI - General Adult General Chief complaint: Recheck/Abnormal Lab/Rx Stated complaint: blood sugar issues Time Seen by Provider: 12/19/21 19:26 Source: patient and EMS Mode of arrival: EMS Limitations: no limitations History of Present Illness HPI narrative: 56-year-old male brought in by EMS from a [facility] secondary to hypoglycemia. Patient ate dinner tonight and states he had a good dinner. Afterwards they checked his blood sugar and it was noted to be high and the 300 range so they gave him additional insulin. They checked it afterwards did not come down so they gave him even more insulin. After that the patient was noted to be unresponsive and was hypoglycemic so they called 911. EMS arrived gave him D50 and then transferred him to the hospital. Patient is completely alert at this time he is quite frustrated that they gave him that much insulin. Is been a diabetic for about a year and a half. He has no other problems or complaints at this time and an Accu-Chek on arrival showed his blood sugar to be in the 160s. Related Data Home Medications Medication Instructions Recorded Confirmed levothyroxine [Euthyrox] 75 mcg PO DAILY 11/06/21 11/30/21 Cerovite 1 tablet PO DAILY 11/28/21 11/30/21 Daily Vitamin C Pack 500 mg PO Q12H 11/28/21 11/30/21 Humalog U-100 Insulin See Rx Instructions .ROUTE .COMPLEX 11/28/21 11/30/21 ferrous sulfate 325 mg PO TIDWM 11/30/21 11/30/21 midodrine 10 mg BYMOUTH Q8H 11/30/21 11/30/21 Allergies Allergy/AdvReac Type Severity Reaction Status Date / Time Penicillins Allergy Rash Verified 11/30/21 08:57 Review of Systems Review of Systems: CONSTITUTIONAL: Denies fever, chills, or sweats. EYES: Denies visual changes, redness, or discharge. ENT: Denies rhinorrhea, congestion, sore throat, or otalgia. CARDIOVASCULAR: Denies chest pain, palpitations, or edema. RESPIRATORY: Denies cough or dyspnea. GASTROINTESTINAL: Denies abdominal pain, nausea, vomiting, or diarrhea. GENITOURINARY: Denies dysuria or hematuria. SKIN: Denies rash or itching. MUSCULOSKELETAL: Denies back pain, joint pain, or myalgia. NEUROLOGIC: Denies headache, numbness, or weakness. PSYCHIATRIC: Denies anxiety or depression. [facility] Past Medical History Medical History Chronic anemia Diabetic peripheral neuropathy Fecal incontinence Gastroparesis History of alcohol abuse Hypothyroidism Insulin dependent type 2 diabetes mellitus Hemoglobin A1c was greater than 14% on 11/07/2021. Pancreatic insufficiency Pancreatitis Protein calorie malnutrition Pulmonary embolism Tobacco dependence Surgical History Surgical History History of endoscopic retrograde cholangiopancreatography Patient reports pancreatic stent x2. Family History Family History Sibling Depression Family history of pancreatic disease Mother Acute myocardial infarction, Onset Age: 60 Social History Social History Social History: Healthcare power of deputy prosecuting attorney: Bethfaraz Rodriguez, sister. Code status: Full code. Smoking packs per day: 1 Smoking cigarettes per day: 20.0 Years smoked: 22 Smoking pack-years: 22.00 Smoking status: Current every day smoker Alcohol intake: former Substance use: former Substance use type: marijuana, crack/cocaine, club/cad designer drugs and methamphetamine Additional living arrangements comments: The patient lives in [place]. Currently at a local [facility]. Additional occupation/education comments: Disabled. Spiritual care concerns: No Exam Narrative: APPEARANCE: Well appearing, no pain or distress. Patient is very thin Head normocephalic and atraumatic. EYES: PERRLA/EOMI, conjunctivae very clear. NOSE: Normal with no drainage EARS:TMS clear Domenic Golden, with good l
[2021-12-19 20:35] LABS: Glucose Point of Care 189 mg/dl (65-105)
== END 2021-12-19 23:15 ==
PROVIDERS: Emergency Provider Emergency Medicine; PCP Internal Medicine
DX: E11.649 Type 2 diabetes mellitus with hypoglycemia without coma (principal); D64.9 Anemia, unspecified; E11.42 Type 2 diabetes mellitus with diabetic polyneuropathy; E11.43 Type 2 diabetes mellitus with diabetic autonomic (poly)neuropathy; K31.84 Gastroparesis; E03.9 Hypothyroidism, unspecified; Z79.4 Long term (current) use of insulin; Z86.711 Personal history of pulmonary embolism; K86.89 Other specified diseases of pancreas; F17.210 Nicotine dependence, cigarettes, uncomplicated
CPT/HCPCS: 82948; 99282

== ENCOUNTER 2021-12-27 13:05 | Emergency (ER) | payer OTHER, SELFPAY ==
[2021-12-27] VITALS (28 sets, daily range): BP systolic 78–116; BP diastolic 54–73; PULSE 56–74; RESP 12–22; TEMP 36.2–36.6; O2SAT 97–100
--- NOTE | ~2021-12-27 | XR_ITS ---
EXAMINATION: XR chest 1V portable DATE: 12/27/2021 13:59 INDICATION: Hypotension. Altered mental status. TECHNIQUE: frontal view of the chest was obtained. COMPARISON: Chest radiograph dated 11/30/2021 FINDINGS: Significant improvement in prior lung disease essentially resolved in the right lower and bilateral m id lung zones with small residual airspace disease in the left lower lung zone. There are some mild l inear atelectasis/scarring in the bilateral lower lung zones. No pleural effusion or pneumothorax. Th e cardiomediastinal silhouette is normal time for slight leftward rotation of the patient. Visualized bones and soft tissues are unremarkable. IMPRESSION: 1. Decreased lung disease in the left lower lung zone which could represent improving pneumonia or as ymmetric pulmonary edema. Reviewed, dictated and finalized at location A. IMPRESSION: 1. Decreased lung disease in the left lower lung zone which could represent imp roving pneumonia or asymmetric pulmonary edema.
--- NOTE | 2021-12-27 13:19 | PC.NURSE ---
Blood sugar 65 on arrival
[2021-12-27 13:22] LABS: Glucose Point of Care 65 mg/dl (65-105)
[2021-12-27] MEDS: DEXTROSE 50% 25 GM/50 ML SYRINGE IV PUSH ×2 (13:22→15:41)
[2021-12-27] MEDS: SODIUM CHLORIDE 0.9% IV 1,000 ML 999 ML IV CONT (13:22)
[2021-12-27 13:44] LABS: Basophils Absolute Auto 0.1 K/mm3 (0.0-0.1); Basophils Percent Auto 1.2 % (0.2-1.2); Eosinophils Absolute Auto 0.5 K/mm3 (0-0.3); Eosinophils Percent Auto 6.2 % (0-4.4); Hematocrit 27.5 % (42.0-52.0); Hemoglobin 8.3 g/dL (14.0-18.0); Immature Granulocyte Absolute 0.03 K/mm3 (0.00-0.031); Immature Granulocyte Percent A 0.4 % (0-0.5); Lymphocytes Absolute Auto 2.17 K/mm3 (0.9-3.2); Lymphocytes Percent Auto 25.7 % (18.3-44.2); Mean Corpuscular HGB Conc 30.2 g/dl (32-36); Mean Corpuscular Volume 96.2 fl (80-100); Mean Platelet Volume 8.9 fl (7.4-10.4); Monocytes Absolute Auto 0.7 K/mm3 (0.1-0.6); Monocytes Percent Auto 8.5 % (2.6-8.5); Neutrophils Absolute Auto 4.9 K/mm3 (1.3-6.7); Platelet Count Result 238 k/mm3 (150-375); Red Blood Count 2.86 M/mm3 (4.6-6.20); Red Cell Distribution Width 16.6 % (11.5-14.5); White Blood Count 8.5 K/mm3 (4.5-10.0)
[2021-12-27 13:49] LABS: Glucose Point of Care 116 mg/dl (65-105)
[2021-12-27 13:53] LABS: Alanine Aminotransferase 15 U/L (4-50); Albumin Level 2.9 g/dL (3.5-5.1); Alkaline Phosphatase 182 U/L (38-126); Anion Gap 3 mmol/L (8-16); Aspartate Amino Transferase 35 U/L (17-59); Bilirubin,Total < 0.1 mg/dL (0.2-1.3); Blood Urea Nitrogen 11 mg/dL (9-20); Calcium 8.2 mg/dL (8.4-10.2); Carbon Dioxide 24 mmol/L (22-30); Chloride 112 mmol/L (98-107); Estimated CRCL calculation 78 ml/min; Estimated Glomerular Filt Rate > 60; Glucose 123 mg/dL (65-110); Lipase 47 U/L (23-300); Potassium 3.2 mmol/L (3.4-5.0); Sodium 139 mmol/L (137-145)
[2021-12-27 13:53] LABS: Lactic Acid Reflex 1.1 mmol/L (0.7-2.1)
[2021-12-27 13:53] LABS: Carboxyhemoglobin 0.7 % THb (0-2.0); Fractional Inspired Oxygen 21 %; HCO3 ABG 18.9 mEq/l (22.0-26.0); Methemoglobin ABG 0.1 %THb (0-1.5); Oxygen Content ABG 11.6 %vol (16.0-22.0); Oxyhemoglobin 96.5 % THb (90.0-100.0); PO2 ABG 113.7 mmHg (80.0-100.0); PO2 FiO2 Ratio Arterial Blood 5.41 %; Reduced Hemoglobin 2.7 %THb (0-5.0); Total Hemoglobin 8.4 g/dL (12.0-18.0); pH ABG 7.351 (7.350-7.450)
[2021-12-27 13:54] LABS: Device ROOM AIR; Modified Allen's Test Pass; Site Drawn LEFT RADIAL
[2021-12-27] MEDS: LACTATED RINGERS 1,000 ML 999 ML IV CONT (13:59)
[2021-12-27 14:01] LABS: Ammonia < 9 umol/L (9-30)
[2021-12-27 14:22] LABS: Glucose Point of Care 93 mg/dl (65-105)
--- NOTE | 2021-12-27 15:30 | PC.NURSE ---
Attempted to wake up patient and give meal. Patient was found unresponsive and diaphoretic. Blood glucose was checked and was found to be low. ANNETTA Shah was notified, D50% given IVP.
[2021-12-27 15:40] LABS: Glucose Point of Care < 20 mg/dl (65-105)
--- NOTE | 2021-12-27 16:10 | PC.NURSE ---
Patient ate full meal and juice. Alert and oriented at this time.
[2021-12-27 17:51] LABS: Glucose Point of Care 194 mg/dl (65-105)
--- NOTE | 2021-12-27 19:01 | ECG_ITS ---
Measurements Intervals [place] Rate: 69 P: 89 CA: 149 QRS: 90 QRSD: 103 T: 87 QT: 436 QTc: 469 Interpretive Statements SINUS RHYTHM WITH OCCASIONAL VENTRICULAR PREMATURE COMPLEXES COMPARED TO ECG 11/30/2021 09:41:39 NO SIGNIFICANT CHANGES OTHER THAN 1 PVC NOTED Electronically Signed On 12-28-2021 7:57:32 CDT by Yogesh Parikh M.D.
--- NOTE | 2021-12-27 19:22 | PC.NURSE ---
Handoff received from Hermelinda RAMIREZ. Pt found lying comfrotably in ED stretcher. Calm and cooperative. AAOx4. GCS 15. Equal and unlabored resp. Skin is warm and dry. FROM x [address] secured and patent. Vitals WNL. SB on business improvement manager.
--- NOTE | 2021-12-27 19:43 | PC.NURSE ---
Handoff given to Micki at [facility] [place]. [phone].
[2021-12-27 19:57] LABS: Glucose Point of Care 254 mg/dl (65-105)
--- NOTE | 2021-12-27 19:57 | ED.GENADULT ---
HPI - General Adult General Chief complaint: Recheck/Abnormal Lab/Rx Stated complaint: low blood sugar, low blood pressure, unresponsive Time Seen by Provider: 12/27/21 13:13 History of Present Illness HPI narrative: Patient is a 56-year-old male who presents ER with altered mental status from senior living. Patient found to be hypoglycemic by EMS. Received D10 and blood sugar improved. Upon arrival here patient is alert and oriented x3. He reports he received his insulin from the nurse. He believes he received 20 units. It is reported he is on a sliding scale. Patient cannot report whether he eat his meal or not. He has no complaints of chest pain or shortness of breath. No infectious concerns including fever/chills/cough/dysuria. Patient's blood pressure is low but chart review shows he is prescribed midodrine and previous chart all document persistent hypotension. Related Data Home Medications Medication Instructions Recorded Confirmed levothyroxine [Euthyrox] 75 mcg PO DAILY 11/06/21 11/30/21 Cerovite 1 tablet PO DAILY 11/28/21 11/30/21 Daily Vitamin C Pack 500 mg PO Q12H 11/28/21 11/30/21 Humalog U-100 Insulin See Rx Instructions .ROUTE .COMPLEX 11/28/21 11/30/21 ferrous sulfate 325 mg PO TIDWM 11/30/21 11/30/21 midodrine 10 mg BYMOUTH Q8H 11/30/21 11/30/21 Allergies Allergy/AdvReac Type Severity Reaction Status Date / Time amoxicillin Allergy Rash Verified 12/27/21 13:31 Penicillins Allergy Rash Verified 11/30/21 08:57 Review of Systems Review of Systems: All systems reviewed & are unremarkable except as noted in HPI and below Constitutional: Constitutional: Denies chills, Denies fever(s) and Reports weakness ENT: Denies nasal congestion and Denies sore throat Cardiovascular: Cardiovascular: Denies chest pain, Denies rapid heart rate and Denies radiating jaw, neck or arm pain Respiratory: Respiratory: Denies cough, Denies dyspnea and Denies wheezing Gastrointestinal: Gastrointestinal: Denies abdominal pain, Denies nausea and Denies vomiting Musculoskeletal: Musculoskeletal: Denies myalgias and Denies arthralgias Neurologic: Reports confusion, Reports syncope, Denies headache(s), Denies focal weakness and Denies numbness PMFSH Past Medical History Medical History Chronic anemia Diabetic peripheral neuropathy Fecal incontinence Gastroparesis History of alcohol abuse Hypothyroidism Insulin dependent type 2 diabetes mellitus Hemoglobin A1c was greater than 14% on 11/07/2021. Pancreatic insufficiency Pancreatitis Protein calorie malnutrition Pulmonary embolism Tobacco dependence Surgical History Surgical History History of endoscopic retrograde cholangiopancreatography Patient reports pancreatic stent x2. Family History Family History Sibling Depression Family history of pancreatic disease Mother Acute myocardial infarction, Onset Age: 60 Social History Social History Social History: Healthcare power of associate attorney: Bethfaraz Rodriguez, sister. Code status: Full code. Smoking packs per day: 1 Smoking cigarettes per day: 20.0 Years smoked: 22 Smoking pack-years: 22.00 Smoking status: Current every day smoker Alcohol intake: former Substance use: former Substance use type: marijuana, crack/cocaine, club/building components designer drugs and methamphetamine Additional living arrangements comments: The patient lives in [place]. Currently at a local senior living. Additional occupation/education comments: Disabled. Spiritual care concerns: No Exam Narrative: GENERAL: Chronically ill-appearing and underweight, no acute distress. HEAD: Normocephalic, atraumatic. EYES: PERRL and EOMI. ENT: Mucous membranes moist. CHEST: Clear to auscultation. No respirato
--- NOTE | 2021-12-27 20:16 | PC.NURSE ---
When changing patient after BM wounds noted to pts coccyx. Open areas noted that were pink in color along the coccyx.
--- NOTE | 2021-12-27 20:20 | PC.NURSE ---
called [facility] to request transport. ETA [id number] called [facility], [facility] and [facility] to request transport. All Declined.
--- NOTE | 2021-12-27 23:21 | PC.NURSE ---
[facility] here
== END 2021-12-27 23:33 ==
PROVIDERS: Emergency Provider Emergency Medicine; PCP Internal Medicine
DX: E11.649 Type 2 diabetes mellitus with hypoglycemia without coma (principal); E11.42 Type 2 diabetes mellitus with diabetic polyneuropathy; E11.43 Type 2 diabetes mellitus with diabetic autonomic (poly)neuropathy; K31.84 Gastroparesis; D64.9 Anemia, unspecified; K86.89 Other specified diseases of pancreas; Z86.711 Personal history of pulmonary embolism; Z79.4 Long term (current) use of insulin; F17.210 Nicotine dependence, cigarettes, uncomplicated; I49.3 Ventricular premature depolarization
CPT/HCPCS: 36415; 36600; 71045; 80053; 82140; 82375; 82805; 82948; 83050; 83605; 83690; 85025; 93005; 96361; 96374; 96376; 99284; J7030; J7120

== ENCOUNTER 2022-01-01 08:01 | Emergency (ER) | payer OTHER, MEDICAID, SELFPAY ==
[2022-01-01] VITALS (10 sets, daily range): BP systolic 104–126; BP diastolic 77–88; PULSE 59–81; RESP 10–19; TEMP 36.2; O2SAT 100
--- NOTE | ~2022-01-01 | CT_ITS ---
EXAMINATION: CT brain wo con DATE: 01/01/2022 10:06 INDICATION: Altered mental status. TECHNIQUE: Computed tomography (CT) of the head was performed without intravenous contrast. The mA wa s adjusted according to patient size. Iterative reconstruction technique was employed. The dose-lengt h product was 605.33 mGy-cm. COMPARISON: Head CT 11/30/2021 FINDINGS: There is no intracranial hemorrhage, acute infarction, or abnormal intracranial mass lesion . The ventricles are normal in size. There is mild mucosal thickening in the paranasal sinuses. The o rbits are normal. The mastoid air cells are normal. IMPRESSION: 1. Normal brain. Reviewed, dictated and finalized at location A. IMPRESSION: 1. Normal brain.
[2022-01-01 08:09] LABS: Glucose Point of Care 83 mg/dl (65-105)
[2022-01-01] MEDS: DEXTROSE 50% 25 GM/50 ML SYRINGE (08:42)
--- NOTE | 2022-01-01 08:42 | ECG_ITS ---
Measurements Intervals [place] Rate: 73 P: 65 AL: 152 QRS: 49 QRSD: 88 T: 61 QT: 413 QTc: 458 Interpretive Statements SINUS RHYTHM LOW QRS VOLTAGE IN PRECORDIAL LEADS [QRS DEFLECTION < 1.0 mV IN CHEST LEADS] POOR R-WAVE PROGRESSION NO SIGNIFICANT CHANGE COMPARED TO PRIOR TRACING Electronically Signed On 01-01-2022 20:49:34 CDT by Antonietta Mills M.D.
--- NOTE | 2022-01-01 08:52 | ED.AMS ---
HPI - Altered Mental Status General Chief Complaint: Recheck/Abnormal Lab/Rx Stated Complaint: low blood sugar Time Seen by Provider: 01/01/22 08:48 Source: patient Mode of arrival: ambulatory Limitations: no limitations History of Present Illness HPI narrative: Patient is a 56-year-old male brought in by EMS from [facility] due to altered mental status. EMS states that when he checked his blood sugar it was in the 30s was given glucagon x2 en route, and upon arrival to the emergency room blood sugar rechecked and is 83. Patient is alert awake and oriented x3 at this time. Patient states that he takes his insulin and he did eat last night. He denies any symptoms. Patient denies any dizziness, chest pain, shortness of breath, abdominal pain, nausea, vomiting, diarrhea, urinary symptoms, fever or chills. Related Data Home Medications Medication Instructions Recorded Confirmed levothyroxine [Euthyrox] 75 mcg PO DAILY 11/06/21 11/30/21 Cerovite 1 tablet PO DAILY 11/28/21 11/30/21 Daily Vitamin C Pack 500 mg PO Q12H 11/28/21 11/30/21 Humalog U-100 Insulin See Rx Instructions .ROUTE .COMPLEX 11/28/21 11/30/21 ferrous sulfate 325 mg PO TIDWM 11/30/21 11/30/21 midodrine 10 mg BYMOUTH Q8H 11/30/21 11/30/21 Allergies Allergy/AdvReac Type Severity Reaction Status Date / Time amoxicillin Allergy Rash Verified 01/01/22 08:10 Penicillins Allergy Rash Verified 01/01/22 08:10 Review of Systems Review of Systems: All systems reviewed & are unremarkable except as noted in HPI and below Constitutional: Constitutional: Denies body ache(s), Denies chills, Denies excessive sweating, Denies fatigue, Denies fever(s), Denies headache(s), Denies lethargy, Denies malaise, Denies weakness and Denies weight loss Eyes: Eyes: Denies blurry vision, Denies change in vision and Denies loss of vision ENT: Denies dizziness, Denies ear discharge, Denies headache(s), Denies lip swelling, Denies epistaxis, Denies nasal congestion, Denies neck pain, Denies throat swelling and Denies tongue swelling Cardiovascular: Cardiovascular: Denies chest pain, Denies chest pain at rest, Denies chest pain with activity, Denies diaphoresis, Denies rapid heart rate, Denies edema, Denies irregular heart rhythm, Denies lightheadedness, Denies palpitations, Denies dyspnea and Denies dyspnea on exertion Respiratory: Respiratory: Denies chest congestion, Denies cough, Denies hemoptysis, Denies dyspnea and Denies dyspnea on exertion Gastrointestinal: Gastrointestinal: Denies abdominal pain, Denies melena, Denies hematochezia, Denies diarrhea, Denies nausea, Denies vomiting and Denies hematemesis Musculoskeletal: Musculoskeletal: Denies abnormal gait, Denies deformity, Denies joint swelling, Denies limited range of motion, Denies neck pain and Denies numbness Neurologic: Denies Abnormal speech present, Denies abnormal gait, Denies confusion, Denies dizziness, Denies headache(s), Denies focal weakness, Denies loss of vision, Denies numbness, Denies Other visual disturbances, Denies Sensory deficit (Neuro) and Denies weakness Psychiatric: Psychiatric: Denies confusion, Denies depression, Denies auditory hallucinations, Denies homicidal ideation and Denies suicidal ideation Endocrine: Endocrine: Denies cold intolerance, Denies excessive sweating, Denies fatigue, Denies heat intolerance and Denies palpitations Hematologic/Lymphatic: Hematologic/Lymphatic: Denies easy bleeding and Denies easy bruising Allergic/Immunologic: Allergic/Immunologic: Denies lip swelling, Denies throat swelling and Denies tongue swelling PMFSH Past Medical History Medical History Chronic anemia Diabetic peripheral neuropathy Fecal incontinence Gastroparesis History of alcohol abuse Hypothyroidism Insulin dependent type 2 diabetes mellitus Hemoglobin A1c was greater than 14% on 11/07/2021. Pancreatic insufficiency Pancreatitis Prote
[2022-01-01] MEDS: DEXTROSE 10% 1,000 ML 75 ML IV CONT (09:00)
[2022-01-01 09:09] LABS: Basophils Absolute Auto 0.1 K/mm3 (0.0-0.1); Basophils Percent Auto 0.7 % (0.2-1.2); Eosinophils Absolute Auto 0.6 K/mm3 (0-0.3); Eosinophils Percent Auto 3.8 % (0-4.4); Hematocrit 27.3 % (42.0-52.0); Hemoglobin 8.5 g/dL (14.0-18.0); Immature Granulocyte Percent A 0.6 % (0-0.5); Lymphocytes Absolute Auto 1.96 K/mm3 (0.9-3.2); Lymphocytes Percent Auto 12.3 % (18.3-44.2); Mean Corpuscular HGB Conc 31.1 g/dl (32-36); Mean Corpuscular Hemoglobin 29.2 pg (26-34); Mean Corpuscular Volume 93.8 fl (80-100); Monocytes Absolute Auto 1.1 K/mm3 (0.1-0.6); Neutrophils Percent Auto 75.6 % (45.5-73.1); Platelet Count Result 225 k/mm3 (150-375); Red Blood Count 2.91 M/mm3 (4.6-6.20); White Blood Count 15.9 K/mm3 (4.5-10.0)
[2022-01-01 09:11] LABS: Alanine Aminotransferase 14 U/L (4-50); Alkaline Phosphatase 173 U/L (38-126); Anion Gap 0 mmol/L (8-16); Aspartate Amino Transferase 35 U/L (17-59); Bilirubin,Total 0.2 mg/dL (0.2-1.3); Blood Urea Nitrogen 12 mg/dL (9-20); Calcium 8.2 mg/dL (8.4-10.2); Carbon Dioxide 28 mmol/L (22-30); Chloride 108 mmol/L (98-107); Estimated CRCL calculation 99 ml/min; Estimated Glomerular Filt Rate > 60; Glucose 167 mg/dL (65-110); Potassium 3.7 mmol/L (3.4-5.0); Sodium 136 mmol/L (137-145)
[2022-01-01 09:23] LABS: Troponin I 0.025 ng/mL (0.000-0.034)
[2022-01-01 09:55] LABS: Glucose Point of Care 286 mg/dl (65-105)
[2022-01-01 10:45] LABS: Glucose Point of Care 362 mg/dl (65-105)
--- NOTE | 2022-01-01 11:24 | PC.NURSE ---
per house sup try different ambulance service for return to [facility] - No Truck [facility] - No Truck [place] [facility] accepted return to [facility] - ETA 1221p
== END 2022-01-01 13:00 ==
PROVIDERS: Emergency Provider Emergency Medicine; PCP Internal Medicine
DX: E11.649 Type 2 diabetes mellitus with hypoglycemia without coma (principal); R41.82 Altered mental status, unspecified; E11.40 Type 2 diabetes mellitus with diabetic neuropathy, unspecified; E11.43 Type 2 diabetes mellitus with diabetic autonomic (poly)neuropathy; K31.84 Gastroparesis; D64.9 Anemia, unspecified; E03.9 Hypothyroidism, unspecified; K86.89 Other specified diseases of pancreas; Z86.711 Personal history of pulmonary embolism; Z79.4 Long term (current) use of insulin; F17.210 Nicotine dependence, cigarettes, uncomplicated
CPT/HCPCS: 36415; 70450; 80053; 82948; 84484; 85025; 93005; 96365; 96366; 99284

== ENCOUNTER 2022-01-20 11:26 | Emergency (ER) | payer OTHER, MEDICAID, SELFPAY ==
[2022-01-20 11:26] VITALS: BP 107/80; PULSE 85; RESP 16; TEMP 36.6; O2SAT 100
[2022-01-20] MEDS: SODIUM CHLORIDE 0.9% IV 1,000 ML 999 ML IV CONT (11:26)
--- NOTE | 2022-01-20 11:33 | ED.GENADULT ---
HPI - General Adult General Chief complaint: Unspecified Stated complaint: AMBULANCE Time Seen by Provider: 01/20/22 11:27 Source: patient and RN notes reviewed Mode of arrival: ambulatory Limitations: no limitations History of Present Illness HPI narrative: Patient comes in for elevated blood sugar readings that created in error message on his Accu-Chek machine. He says he got out of the assisted just 4 days ago. He felt so good that he when out did some mowing on Wednesday. Then is more any tripped getting off of the more onto the grass with no injuries. He says that he can not find his glasses to see the numbers for his insulin so he has not been taking his insulin for couple of days. Also his girlfriend will not help him find his glasses. He has not started on 2 of his medications in the last 2 days Xarelto and Creon. Home healthcare nurse was there and said that his blood pressure was low and that his sugar was high and so he was brought to the emergency room. He denies any other symptoms at this time. He says he basically feels fine other than being generalized weak from being .at the assisted Onset (ago): day(s) (2) Related Data Home Medications Medication Instructions Recorded Confirmed levothyroxine [Euthyrox] 75 mcg PO DAILY 11/06/21 01/20/22 Cerovite 1 tablet PO DAILY 11/28/21 01/20/22 Daily Vitamin C Pack 500 mg PO Q12H 11/28/21 01/20/22 Humalog U-100 Insulin See Rx Instructions .ROUTE .COMPLEX 11/28/21 01/20/22 ferrous sulfate 325 mg PO TIDWM 11/30/21 01/20/22 midodrine 10 mg BYMOUTH Q8H 11/30/21 01/20/22 Allergies Allergy/AdvReac Type Severity Reaction Status Date / Time amoxicillin Allergy Rash Verified 01/20/22 12:17 Penicillins Allergy Rash Verified 01/20/22 12:17 Review of Systems Review of Systems: All systems reviewed & are unremarkable except as noted in HPI and below PMFSH Past Medical History Medical History Chronic anemia Diabetic peripheral neuropathy Fecal incontinence Gastroparesis History of alcohol abuse Hypothyroidism Insulin dependent type 2 diabetes mellitus Hemoglobin A1c was greater than 14% on 11/07/2021. Pancreatic insufficiency Pancreatitis Protein calorie malnutrition Pulmonary embolism Tobacco dependence Surgical History Surgical History History of endoscopic retrograde cholangiopancreatography Patient reports pancreatic stent x2. Family History Family History Sibling Depression Family history of pancreatic disease Mother Acute myocardial infarction, Onset Age: 60 Social History Social History Social History: Healthcare power of administrative support assoc: Beth Rodriguez, sister. Code status: Full code. Smoking packs per day: 1 Smoking cigarettes per day: 20.0 Years smoked: 22 Smoking pack-years: 22.00 Smoking status: Current every day smoker Alcohol intake: former Substance use: former Substance use type: marijuana, crack/cocaine, club/internet designer drugs and methamphetamine Additional living arrangements comments: The patient lives in [place]. Currently at a local assisted. Additional occupation/education comments: Disabled. Spiritual care concerns: No Exam Const: General: healthy appearing, no acute distress and alert Nutritional Appearance: well nourished and thin Orientation/consciousness: patient oriented x3 HENMT: Head: normal to inspection Ears: external ears normal Face and sinus: normal facial exam Mouth: Yes moist mucous membranes Eyes: Conjunctivae: conjunctivae normal Pupils: Equal, round and reactive pupils present EOM: EOMs intact bilaterally Neck: Neck: normal visual inspection Resp: Effort & Inspection: normal respiratory effort Auscultation: clear to auscultation bilat
[2022-01-20] MEDS: INSULIN HUMAN REGULAR (*BKC) 100 UNITS/ML 10 UNITS IV PUSH (12:07)
[2022-01-20 12:09] LABS: Anion Gap 6 mmol/L (8-16); Blood Urea Nitrogen 17 mg/dL (7-18); Carbon Dioxide 32 mmol/L (21-32); Chloride 89 mmol/L (98-108); Estimated Glomerular Filt Rate 51; Potassium 3.1 mmol/L (3.5-5.1); Sodium 127 mmol/L (136-145)
[2022-01-20] MEDS: INSULIN REG 100 UNITS/100 ML 100 UNITS/100 ML BAG 7 UNITS IV CONT (12:09)
[2022-01-20 12:12] LABS: Glucose 692 mg/dL (70-99); Osmolality Calculated 298 mOsm/kg (285-295)
[2022-01-20 12:13] LABS: CRP 0.2 mg/dL (0.0-0.9)
[2022-01-20 12:17] LABS: Lactic Acid Reflex 1.4 mmol/L (0.4-2.0)
[2022-01-20 12:40] VITALS: BP 108/71; PULSE 74; RESP 16; O2SAT 99
[2022-01-20 12:43] LABS: Glucose Point of Care > 450 mg/dl (65-105)
[2022-01-20] MEDS: LACTATED RINGERS 1,000 ML 999 ML IV CONT (12:48)
[2022-01-20 13:18] LABS: Glucose Point of Care 428 mg/dl (65-105)
[2022-01-20] MEDS: KCL 20 MEQ/SW 100 ML 100 ML 50 MEQ IVPB (13:23)
[2022-01-20 13:47] LABS: Glucose Point of Care 345 mg/dl (65-105)
[2022-01-20 14:18] LABS: Glucose Point of Care 231 mg/dl (65-105)
[2022-01-20 14:20] VITALS: BP 108/66; PULSE 85; RESP 16; TEMP 36.5; O2SAT 97
[2022-01-20 14:46] LABS: Glucose Point of Care 198 mg/dl (65-105)
[2022-01-20 15:15] VITALS: BP 119/67; PULSE 65; RESP 14; TEMP 36.7; O2SAT 98
== END 2022-01-20 15:17 | disposition home or self-care (01) ==
PROVIDERS: Emergency Provider Emergency Medicine; PCP Internal Medicine
DX: E87.6 Hypokalemia (principal); E11.65 Type 2 diabetes mellitus with hyperglycemia
CPT/HCPCS: 36415; 80048; 82948; 83605; 86140; 96361; 96365; 96366; 96367; 99284; J1815; J3480; J7030; J7120

== ENCOUNTER 2022-01-29 15:03 | Outpatient (NON) | payer OTHER, MEDICAID, SELFPAY ==
[2022-01-29 15:24] LABS: Basophils Percent Auto 0.9 % (0.0-1.0); Eosinophils Absolute Auto 0.17 K/mm3 (0.02-0.50); Eosinophils Percent Auto 1.6 % (1.0-6.0); Hematocrit 35.8 % (40.0-54.0); Hemoglobin 11.9 g/dL (14.0-18.0); Immature Granulocyte Absolute 0.05 K/mm3 (0.00-0.00); Immature Granulocyte Percent A 0.5 % (0.0-0.0); Lymphocytes Absolute Auto 2.01 K/mm3 (1.10-4.50); Mean Corpuscular HGB Conc 33.2 g/dL (32.0-36.0); Mean Corpuscular Hemoglobin 29.4 pg (27.0-31.0); Mean Corpuscular Volume 88.4 fL (78.0-102.0); Mean Platelet Volume 9.6 fl (8.7-11.0); Monocytes Absolute Auto 0.47 K/mm3 (0.10-0.90); Monocytes Percent Auto 4.4 % (2.0-11.0); Neutrophils Absolute Auto 7.8 K/mm3 (1.7-7.2); Neutrophils Percent Auto 73.6 % (50.0-70.0); Platelet Count Result 262 K/mm3 (150-420); Red Blood Count 4.05 M/mm3 (4.70-6.10); Red Cell Distribution Width 13.1 % (11.6-14.4); White Blood Count 10.6 K/mm3 (4.8-10.8)
[2022-01-29 15:29] LABS: Alanine Aminotransferase 27 U/L (16-63); Albumin Level 3.1 g/dL (3.4-5.0); Alkaline Phosphatase 225 U/L (46-116); Anion Gap 7 mmol/L (8-16); Aspartate Amino Transferase 11 U/L (15-37); Bilirubin,Total 0.3 mg/dL (0.00-1.00); Blood Urea Nitrogen 5 mg/dL (7-18); Calcium 8.6 mg/dL (8.5-10.1); Carbon Dioxide 31 mmol/L (21-32); Chloride 89 mmol/L (98-108); Estimated Glomerular Filt Rate 56; Magnesium 1.7 mg/dL (1.8-2.4); Phosphorus 2.7 mg/dL (2.6-4.7); Potassium 2.6 mmol/L (3.5-5.1); Sodium 127 mmol/L (136-145); Total Protein 6.9 g/dL (6.4-8.2)
[2022-01-29 15:31] LABS: Glucose > 800 mg/dL (70-99); Osmolality Calculated 300 mOsm/kg (285-295)
== END 2022-01-29 15:04 | disposition home or self-care (01) ==
LOC: CHSHH 15:04
PROVIDERS: PCP Internal Medicine; Visit Provider Internal Medicine
DX: K86.1 Other chronic pancreatitis (principal); I10 Essential (primary) hypertension
CPT/HCPCS: 36415; 80053; 83735; 84100; 85025

== ENCOUNTER 2022-02-24 12:56 | Emergency (ER) | payer OTHER, SELFPAY ==
[2022-02-24] VITALS (106 sets, daily range): BP systolic 62–159; BP diastolic 41–99; PULSE 50–88; RESP 10–24; TEMP 36.2; O2SAT 93–100
--- NOTE | ~2022-02-24 | XR_ITS ---
EXAMINATION: XR chest 1V portable DATE: 02/24/2022 14:18 INDICATION: Shortness of breath. TECHNIQUE: A single frontal view of the chest was obtained. COMPARISON: Chest single view 12/27/2021, chest CT 11/08/2027 FINDINGS: There is mild scarring in right mid and lower lung zones. No pleural effusion or pneumothor ax. The heart size is normal. There is an old healed fracture of right fifth rib. IMPRESSION: 1. Mild scarring in right mid and lower lung zones. Reviewed, dictated and finalized at location A.
--- NOTE | ~2022-02-24 | CT_ITS ---
EXAMINATION: CT chest abdomen pelvis wo con DATE: 02/24/2022 17:37 INDICATION: Shortness of breath, weakness, unresponsive. TECHNIQUE: Computed tomography (CT) of the chest, abdomen, and pelvis was performed without intraveno us contrast. Automated exposure control and iterative reconstruction technique were employed. Exam do se: 287.93 mGy-cm total exam DLP. COMPARISON: 01/24/2022 portable AP chest 3. CTA chest 3. CT abdomen pelvis FINDINGS: CHEST CT: Normal heart size no thoracic aortic aneurysm. No hilar or mediastinal mass lesion or lymphadenopathy . No pericardial or pleural effusion. Moderate emphysema. There are scattered focal areas of mild infiltrate, atelectasis or scarring involving the middle lobe , left upper lobe and lung bases. ABDOMEN/PELVIS CT: Liver and spleen appear unremarkable. The gallbladder appears to be present. Extensive pancreatic calcifications consistent with chronic pancreatitis.. No adrenal mass lesion is evident. Approximately 2.2 cm right renal cyst. There is prominent thickening of the urinary bladder wall, the Ellison catheter in place. No urinary tr act calculus is noted. Prostate calcifications are identified There is extensive abdominal aortic calcification but no aneurysm. No intraperitoneal or retroperiton eal or pelvic mass lesion or adenopathy or ascites is noted. No bowel obstruction or intraperitoneal free air. Diffuse osteopenia. There are mild to moderate anterior wedge compression fracture deformities of T8, T9 and T12 IMPRESSION: Occasional scattered focal areas of mild bilateral pulmonary infiltrate, atelectasis and/ or scarring Moderate emphysema Chronic pancreatitis 2.2 cm right renal cyst Ellison catheter in urinary bladder; prominent urinary bladder wall thickening Mild to moderate anterior wedge compression fracture deformities of T8, T9 and T12 Reviewed, dictated and finalized at Location A. Reviewed, dictated and finalized at location A. IMPRESSION: Occasional scattered focal areas of mild bilateral pulmonary infilt rate, atelectasis and/or scarring Moderate emphysema Chronic pancreatitis 2.2 cm right renal cyst Ellison catheter in urinary bladder; prominent urinary bladder wall thickening Mild to moderate anterior wedge compression fracture deformities of T8, T9 and T12
--- NOTE | ~2022-02-24 | CT_ITS ---
EXAMINATION: CT brain wo con DATE: 02/24/2022 14:17 INDICATION: Unresponsive. TECHNIQUE: Computed tomography (CT) of the head was performed without intravenous contrast. The mA wa s adjusted according to patient size. Iterative reconstruction technique was employed. The dose-lengt h product was 605.33 mGy-cm. COMPARISON: Head CT 01/01/2022 FINDINGS: There is no intracranial hemorrhage, acute infarction, or abnormal intracranial mass lesion . The ventricles are normal in size. The orbits are normal. There is mild mucosal thickening in the p aranasal sinuses. The mastoid air cells are normal. IMPRESSION: 1. Normal brain. Reviewed, dictated and finalized at location A. IMPRESSION: 1. Normal brain.
[2022-02-24] MEDS: SODIUM CHLORIDE 0.9% IV 1,000 ML 999 ML IV CONT ×4 (12:56→22:25)
--- NOTE | 2022-02-24 13:11 | ECG_ITS ---
Measurements Intervals [place] Rate: 90 P: 88 AL: 141 QRS: 89 QRSD: 107 T: 71 QT: 522 QTc: 641 Interpretive Statements SINUS RHYTHM WITH OCCASIONAL VENTRICULAR PREMATURE COMPLEXES POSSIBLE RIGHT ATRIAL ENLARGEMENT [0.25mV P-WAVE] MODERATE INFEROLATERAL ST DEPRESSION CONSIDER DIFFUSE SUBENDOMYOCARDIAL ISCHEMIA WITH RECIPROCAL ELEVATION IN aVR PROLONGED QT INTERVAL ABNORMAL ECG COMPARED TO ECG 01/01/2022 08:54:28 ST DEPRESSION AND PROLONGED QT INTERVAL NOW PRESENT Electronically Signed On 02-24-2022 14:56:58 CDT by Carter Guzman M.D.
[2022-02-24 13:35] LABS: Base Excess ABG 9.9 mmol/L (0-2); HCO3 ABG 35.3 mmol/L (23-29); Oxygen Content ABG 19.3 %vol (16.0-22.0); Oxygen Saturation ABG 98.7 % (95-97); Oxyhemoglobin 97.8 % (94-100); PCO2 ABG 50.2 mmHg (35-45); PO2 ABG 204.2 mmHg (80-90); Total Hemoglobin 13.7 g/dL (12.0-18.0); pH ABG 7.47 (7.35-7.45)
[2022-02-24 13:37] LABS: Basophils Absolute Auto 0.07 K/mm3 (0.00-0.10); Basophils Percent Auto 0.4 % (0.0-1.0); Eosinophils Absolute Auto 0.04 K/mm3 (0.02-0.50); Eosinophils Percent Auto 0.2 % (1.0-6.0); Hematocrit 41.6 % (40.0-54.0); Hemoglobin 14.4 g/dL (14.0-18.0); Immature Granulocyte Absolute 0.11 K/mm3 (0.00-0.00); Immature Granulocyte Percent A 0.6 % (0.0-0.0); Lymphocytes Absolute Auto 1.99 K/mm3 (1.10-4.50); Lymphocytes Percent Auto 10.9 % (18.0-42.0); Mean Corpuscular HGB Conc 34.6 g/dL (32.0-36.0); Mean Corpuscular Hemoglobin 28.4 pg (27.0-31.0); Mean Corpuscular Volume 82.1 fL (78.0-102.0); Monocytes Absolute Auto 0.99 K/mm3 (0.10-0.90); Monocytes Percent Auto 5.4 % (2.0-11.0); Neutrophils Absolute Auto 15.1 K/mm3 (1.7-7.2); Neutrophils Percent Auto 82.5 % (50.0-70.0); Platelet Count Result 416 K/mm3 (150-420); Red Blood Count 5.07 M/mm3 (4.70-6.10); Red Cell Distribution Width 12.3 % (11.6-14.4); White Blood Count 18.3 K/mm3 (4.8-10.8)
[2022-02-24 13:38] LABS: Device NASAL CANNULA; Modified Allen's Test Pass; Site Drawn LEFT RADIAL
[2022-02-24 13:57] LABS: Alanine Aminotransferase 11 U/L (16-63); Albumin Level 3.1 g/dL (3.4-5.0); Alkaline Phosphatase 193 U/L (46-116); Anion Gap 9 mmol/L (8-16); Aspartate Amino Transferase 12 U/L (15-37); Bilirubin,Total 0.4 mg/dL (0.00-1.00); Blood Urea Nitrogen 43 mg/dL (7-18); Calcium 8.7 mg/dL (8.5-10.1); Carbon Dioxide 35 mmol/L (21-32); Chloride 89 mmol/L (98-108); Estimated Glomerular Filt Rate 16; Sodium 133 mmol/L (136-145); Total Protein 7.2 g/dL (6.4-8.2); Troponin I 11.2 ng/L (0.00-60.4)
[2022-02-24 14:02] LABS: Lactic Acid Reflex 2.4 mmol/L (0.4-2.0)
[2022-02-24 14:05] LABS: Salicylate 1.8 mg/dL (2.8-20.0); Thyroid Stimulating Hormone 0.74 uIU/mL (0.36-3.74)
[2022-02-24 14:07] LABS: Potassium 1.6 mmol/L (3.5-5.1)
[2022-02-24 14:08] LABS: Acetaminophen < 2 ug/mL (10-30)
[2022-02-24 14:10] LABS: Ethanol < 3 mg/dL (0-6); Lipase 20 U/L (73-393)
[2022-02-24] MEDS: DEXTROSE 50% 25 GM/50 ML SYRINGE IV PUSH ×2 (14:17→22:01)
[2022-02-24 14:26] LABS: Glucose 18 mg/dL (70-99); Osmolality Calculated 282 mOsm/kg (285-295)
[2022-02-24 14:35] LABS: Glucose Point of Care 222 mg/dl (65-105)
[2022-02-24 14:35] LABS: Glucose Point of Care < 33 mg/dl (65-105)
[2022-02-24] MEDS: DEXTROSE 5%/0.9% SOD CHL 1,000 ML 1000 ML IV CONT (14:38)
[2022-02-24] MEDS: ATROPINE SULFATE 1 MG/10 ML SYRINGE IV PUSH ×2 (14:50→15:44)
[2022-02-24] MEDS: NOREPINEPHRINE 8 MG/D5W 250 ML 8 MG/250 ML BAG 9.38 MG IV CONT (14:52)
--- NOTE | 2022-02-24 15:22 | PC.NURSE ---
per erp titrate down levophed
[2022-02-24] MEDS: KCL 40 MEQ/0.9% SOD CHL 1,000 ML 100 ML IV CONT (15:24)
--- NOTE | 2022-02-24 15:33 | PC.NURSE ---
erp on the phone with danial at this time.
[2022-02-24 15:35] LABS: Glucose Point of Care 419 mg/dl (65-105)
--- NOTE | 2022-02-24 16:15 | PC.NURSE ---
rn called and spoke with kae hobsonhousekeeping coordinator at [facility], she was attempting to get ahold of hospitalist for patient transfer
[2022-02-24 16:32] LABS: Reflex Lactic Acid Yes or No Add Lactic
[2022-02-24 16:47] LABS: Glucose Point of Care 321 mg/dl (65-105)
[2022-02-24 17:01] LABS: Add Urine Microscopic? YES; Bilirubin Urine Negative (Negative); Blood Urine 2+ (Negative); Color Urine Brown (Yellow); Glucose Urine UA 2+ (Negative); Ketones Urine Negative (Negative); Leukocyte Esterase Ur 3+ (Negative); Nitrate Urine Negative (Negative); Protein Urine 2+ (Negative); Specific Grav Ur 1.015 (1.010-1.020); Urobilinogen Urine 0.2 mg/dL (0.2-1.0)
[2022-02-24 17:07] LABS: Bacteria Urine Trace /hpf; Squamous Epithelial Cell Urine Rare /hpf (Few); WBC Urine >75 /hpf (0-3)
[2022-02-24 17:08] LABS: Appearance Urine Cloudy (Clear)
[2022-02-24 17:09] LABS: Amphetamine Screen Urine Positive (Negative); Barbiturate Screen Urine Negative (Negative); Benzodiazepines Screen Urine Negative (Negative); Cannabinoid Screen Urine Negative (Negative); Cocaine Screen Urine Negative (Negative); Methadone Screen Urine Negative (Negative); Opiate Screen Urine Negative (Negative); Phencyclidine Screen Urine Negative (Negative)
[2022-02-24 17:15] LABS: Lactic Acid 1.7 mmol/L (0.4-2.0)
[2022-02-24 17:24] LABS: Creatine Kinase 43 U/L (39-308)
--- NOTE | 2022-02-24 17:39 | PC.NURSE ---
patient back in room from ct. patient's eyes are open and he is looking around the room. patient is able to follow commands to help hold up bottom to change out depend that has stool. patient rolled over to side by self and has been holding sisters hand. sister states he has been moving a little.
[2022-02-24 19:56] LABS: Glucose Point of Care 222 mg/dl (65-105)
--- NOTE | 2022-02-24 20:27 | PC.NURSE ---
RN called Imtiaz hobsonlaundry housekeeper for an update on pt transfer status. Load Planner states she will be returning a call with an update soon.
--- NOTE | 2022-02-24 20:45 | PC.NURSE ---
compounding and finishing supervisor returned call. RN updated compounding and finishing supervisor.
[2022-02-24 21:02] LABS: Glucose Point of Care 166 mg/dl (65-105)
--- NOTE | 2022-02-24 21:10 | PC.NURSE ---
RN was setting up to insert a NG tube when pt started to sit up a little. Upon assessment pt is AOx4 and answers all questions appropriately. Pt states he feels hungry and wanted something to eat. RN advised ERP. ERP, Dr. Santana, states to conduct a swallow test and if pt tolerates 30mLs of water by mouth to give the potassium ordered PO via applesauce. Pt tolerates the water with no issues. Pt's potassium is mixed in with apple sauce and pt feeds himself.
[2022-02-24] MEDS: POTASSIUM CHLORIDE 20 MEQ PACKET (FOR LIQUID) 60 MEQ PO (21:28)
[2022-02-24] MEDS: POTASSIUM CHLORIDE 20 MEQ PACKET (FOR LIQUID) PO (22:03)
[2022-02-24 22:25] LABS: Ammonia < 10 umol/L (11-32)
--- NOTE | 2022-02-24 23:02 | PC.NURSE ---
[facility] paged
--- NOTE | 2022-02-24 23:10 | ED.AMS ---
HPI - Altered Mental Status General Chief Complaint: Altered Mental Status Stated Complaint: AMBULANCE Time Seen by Provider: 02/24/22 13:00 Source: patient, family, EMS and RN notes reviewed Mode of arrival: EMS Limitations: altered mental status History of Present Illness complaint: altered mental status, confusion and weakness Onset (ago): day(s) (3) Severity: moderate Consistency of symptoms: getting Worse Associated symptoms: loss of appetite, malaise, weakness and foul smelling urine Treatments prior to arrival: IV fluid Related Data Home Medications Medication Instructions Recorded Confirmed levothyroxine 75 mcg tablet 75 mcg PO DAILY 11/06/21 02/25/22 (Euthyrox) Daily Vitamin C Pack 500 mg PO Q12H 11/28/21 02/25/22 Humalog U-100 Insulin See Rx Instructions .Route .COMPLEX 11/28/21 02/25/22 ferrous sulfate 325 mg (65 mg 325 mg PO TIDWM 11/30/21 02/25/22 iron) tablet midodrine 10 mg tablet 10 mg BYMOUTH Q8H 11/30/21 02/25/22 Allergies Allergy/AdvReac Type Severity Reaction Status Date / Time amoxicillin Allergy Rash Verified 01/20/22 12:17 Penicillins Allergy Rash Verified 01/20/22 12:17 Review of Systems Review of Systems: All systems reviewed & are unremarkable except as noted in HPI and below Constitutional: Constitutional: Reports fatigue and Reports weakness Eyes: Eyes: Reports no additional eye complaints ENT: Reports system reviewed and no additional complaints, except as documented Cardiovascular: Cardiovascular: Reports no additional cardiovascular complaints Respiratory: Respiratory: Reports no additional respiratory complaints Gastrointestinal: Gastrointestinal: Reports no additional gastrointestinal complaints Musculoskeletal: Musculoskeletal: Reports no additional musculoskeletal complaints, Reports myalgias and Reports arthralgias Integumentary/Breasts: Skin/Breast: Reports system reviewed and no additional complaints, except as docu Neurologic: Reports system reviewed and no additional complaints, except as documented Psychiatric: Psychiatric: Reports no additional psychiatric complaints Endocrine: Endocrine: Reports no additional endocrine complaints Hematologic/Lymphatic: Hematologic/Lymphatic: Reports no additional hematologic/lymphatic complaints Allergic/Immunologic: Allergic/Immunologic: Reports no additional allergic/immunologic complaints PMFSH Past Medical History Medical History Bacteremia due to Klebsiella pneumoniae (11/2021) Bacteremia due to Klebsiella pneumoniae Chronic anemia Diabetic peripheral neuropathy Fecal incontinence Gastroparesis History of alcohol abuse Hypothyroidism Insulin dependent type 2 diabetes mellitus Hemoglobin A1c was greater than 14% on 11/07/2021. Orthostatic hypotension (~11/2021) Osteopenia determined by x-ray Pancreatic insufficiency Pancreatitis Protein calorie malnutrition Pulmonary embolism Thoracic compression fracture T9, T10, T12 Tobacco dependence Weakness generalized Surgical History Surgical History History of endoscopic retrograde cholangiopancreatography Patient reports pancreatic stent x2. Family History Family History Sibling Depression Family history of pancreatic disease Mother Acute myocardial infarction, Onset Age: 60 Social History Social History Social History: Healthcare power of litigation attorney: Beth Rodriguez, sister. Code status: Full code. Smoking packs per day: 3 Smoking cigarettes per day: 60.0 Years smoked: 40 Smoking pack-years: 120.00 Smoking status: Current every day smoker Tobacco type: cigarettes Additional smoking assessment comments: Three packs per day until 2011 then down to<1 pack per day. Alcohol intake: former Alcohol use detai
[2022-02-24 23:26] LABS: Glucose Point of Care 229 mg/dl (65-105)
--- NOTE | 2022-02-24 23:57 | PC.NURSE ---
RN phoned ICU nurse to inform pt was en route and changes to pt.
--- NOTE | 2022-02-25 00:44 | PC.NURSE ---
[facility] arrives to [facility] and receive report. Pt is loaded onto EMS stretcher and secured with all belts. Pt has norepinephrine continuing at 2 mcg an hour going into pt's left IV site. Pt also has 150mLs of NSS bolus running into pt's right arm when transferred. EMS secures all belongings and goes en route to [place] ICU 3 without incident.
--- NOTE | 2022-03-03 08:51 | PC.NURSE ---
03/03/22 SPOKE WITH OLLIE RAMIREZ AT [facility] PT IS ON APPROPRIATE ANTIBIOTIC FOR POSITIVE BLOOD CULTURE KLEBSIELLA PNEMONIAE
== END 2022-02-24 23:55 | disposition short-term general hospital (02) ==
PROVIDERS: Emergency Provider Emergency Medicine; PCP Internal Medicine
DX: E87.6 Hypokalemia (principal); L89.90 Pressure ulcer of unspecified site, unspecified stage; E46 Unspecified protein-calorie malnutrition; A41.9 Sepsis, unspecified organism; N39.0 Urinary tract infection, site not specified; F05 Delirium due to known physiological condition; E03.9 Hypothyroidism, unspecified; Z86.711 Personal history of pulmonary embolism; F17.200 Nicotine dependence, unspecified, uncomplicated
CPT/HCPCS: 36415; 36600; 70450; 71045; 71250; 74176; 80053; 80307; 81001; 82140; 82550; 82805; 82948; 83605; 83690; 84443; 84484; 85025; 87040; 87147; 87186; 93005; 96361; 96365; 96366; 96367; 96368; 96375; 96376; 99285; A9270; J0461; J0696; J3370; J7030; J7042; J7070

== ENCOUNTER 2022-02-25 00:54 | Inpatient (IN) | payer OTHER, SELFPAY ==
[2022-02-25] VITALS (32 sets, daily range): BP systolic 72–129; BP diastolic 46–79; PULSE 48–75; RESP 9–21; TEMP 36.4–37.1; O2SAT 93–100; BMI 12.0; BMI 12.1
--- NOTE | ~2022-02-25 | XR_ITS ---
EXAMINATION: XR chest PICC line DATE: 02/25/2022 09:50 INDICATION: PICC line placement TECHNIQUE: frontal view of the chest was obtained. COMPARISON: Chest radiograph and CT dated 02/24/2022 FINDINGS: Right upper extremity peripherally inserted central venous catheter (PICC) tip at the caudal superio r vena cava. Hyperexpansion of lungs consistent with emphysema better appreciated on prior CT. Mild l inear atelectasis/scarring in the right mid and bilateral lower lung zones. Couple skin folds project over the left lung. No pneumothorax or pleural effusion. The cardiomediastinal silhouette is normal. Mild lower thoracic dextrocurvature. IMPRESSION: 1. Right PICC line tip at the caudal superior vena cava. 2. Emphysema and mild streaky atelectasis/scarring at the right mid and bilateral lower lung zones Reviewed, dictated and finalized at location B. IMPRESSION: 1. Right PICC line tip at the caudal superior vena cava. 2. Emphysema and mild streaky atelectasis/scarring at the right mid and bilater al lower lung zones
[2022-02-25] MEDS: NOREPINEPHRINE 8 MG/D5W 250 ML 8 MG/250 ML BAG 9.38 MG IV CONT (00:40)
--- NOTE | 2022-02-25 00:40 | ADMGEN ---
This patient, Shad Rodriguez, was admitted to Intensive Care Unit-3. Patient/family oriented to hospital policies and general routines including ID bracelet, bed and alarms, visiting hours, pain management, procedures, bathroom and other care routines, personal items, smoking policy, room service/diet, and visiting hours. Information on how to activate the Rapid Response Team has been discussed. Patient/Family are encouraged to report perceived risks to care and to ask questions if they do not understand what they are told or what they should do.
[2022-02-25] MEDS: SODIUM CHLORIDE 0.9% IV 1,000 ML 999 ML IV CONT ×2 (01:10→03:24)
--- NOTE | 2022-02-25 02:00 | PC.NURSE ---
Addendum entered by Astrid Calle RN 02/25/22 03:40: Order received to continue to infuse Levophed through peripheral IV. Original Note: Dr. Thompson and Yenny Jang NP made attempts to obtain right femoral line without success.
[2022-02-25] MEDS: KCL 20 MEQ/D5/0.45% SOD CHL 1,000 ML 100 ML IV CONT (02:06)
[2022-02-25 02:10] LABS: Hematocrit 34.8 % (42.0-52.0); Hemoglobin 11.6 g/dL (14.0-18.0); Mean Corpuscular HGB Conc 33.3 g/dl (32-36); Mean Corpuscular Hemoglobin 28.2 pg (26-34); Mean Corpuscular Volume 84.7 fl (80-100); Mean Platelet Volume 8.8 fl (7.4-10.4); Platelet Count Result 310 k/mm3 (150-375); Red Blood Count 4.11 M/mm3 (4.6-6.20); Red Cell Distribution Width 12.9 % (11.5-14.5); White Blood Count 11.9 K/mm3 (4.5-10.0)
[2022-02-25 02:20] LABS: INR 1.1; Prothrombin Time 13.9 Seconds (11.1-14.7)
[2022-02-25 02:24] LABS: Hemoglobin A1C 13.7 % (<5.7)
[2022-02-25] MEDS: DEXTROSE 50% 25 GM/50 ML SYRINGE (02:24)
[2022-02-25 02:30] LABS: Alanine Aminotransferase 14 U/L (6-50); Alkaline Phosphatase 125 U/L (38-126); Anion Gap 6 mmol/L (8-16); Aspartate Amino Transferase 19 U/L (17-59); Bilirubin,Total 0.2 mg/dL (0.2-1.3); Blood Urea Nitrogen 30 mg/dL (9-20); Calcium 6.8 mg/dL (8.4-10.2); Carbon Dioxide 26 mmol/L (22-30); Chloride 106 mmol/L (98-107); Estimated Glomerular Filt Rate 48; Glucose 52 mg/dL (65-110); Magnesium 1.6 mg/dL (1.6-2.3); Potassium 2.5 mmol/L (3.4-5.0); Sodium 138 mmol/L (137-145)
[2022-02-25 03:04] LABS: Glucose Point of Care 54 mg/dl (65-105)
[2022-02-25 03:04] LABS: Glucose Point of Care 162 mg/dl (65-105)
--- NOTE | 2022-02-25 03:14 | PM.IMHP ---
H&P: HPI History of Present Illness Date/Time: 02/25/22 01:14 Chief Complaint: Low blood pressure, low blood sugar Narrative: 57-year-old male with past medical history of chronic pancreatitis, insulin-dependent diabetes mellitus, chronic protein calorie malnutrition, hypothyroidism and orthostatic hypotension who presented to [facility] from home after his home health nurse found the patient hypotensive and profoundly hypoglycemic. At the outside ER the patient was bradycardic on presentation with a pulse of 50 and hypotensive with blood pressures in the 70s. He received 2 doses of atropine and 3 L of IV fluids. His glucoses on arrival to outside ER were 15. He received multiple amps of dextrose. His glucoses prior to being transferred to our facility were 166. The patient reports that he has not had anything to eat or drink at home for the last 2 days. He does not give a good reason for this but states that prior to that he was eating a peanut butter and chocolate cookies as well as chocolate covered peanuts. The patient had been at a [facility] but left January 06 against medical advice. He stated that he left because the nursing facility kept dropping his blood sugars too low. The patient has not been compliant with checking his Accu-Cheks at home. He states that he has been able to get up and move around at home. He denies any nausea or vomiting or significant abdominal pain. He does report sensation of incomplete bladder emptying and states that he is on medications for his prostate. He denies any dysuria but at the outside facilities urine appeared frankly purulent to in nature. Ellison catheter was placed and he has had a small amount of yellow milky appearing urine since arrival to our facility. He received a dose of Rocephin and vancomycin at the outside facility. He received 60 mEq of potassium chloride p.o. and 20 mEq IV. He received a total of 4 L of fluid bolus at the outside hospital. The patient does have a chronic decubitus ulcer on his sacrum. He reports significant pain due to to this. Labs from outside facility: White count 30330 hemoglobin 14.4 platelet count 309279 with 82% neutrophils PT 13.9 INR 1.1 ABG pH 7.47 pCO2 50.2 PO2 204 bicarb 35 Sodium 133 potassium 1.6 chloride 89 CO2 35 BUN 43 creatinine 3.8 glucose 18 calcium 8.7 AST 12 ALT 11 alk-phos 193 ammonia less than 10 CK 43 troponin 11.2 with normal ranging between 0 and 60 total protein of 7.2 albumin 3.1 lipase 20 lactic acid 2.4 with repeat 1.7 UA urine brown in color cloudy, 2+ protein 2+ glucose 2+ blood negative ketones 3+ esterase 3-5 rbc's greater than 7 5 wbc's rare squamous cells trace bacteria Review of Systems Review of Systems: 12 systems were reviewed with pertinent positives and negatives per HPI. Except as documented in the HPI, all other systems were reviewed and are negative. [facility] Past Medical History Medical History (Updated 02/25/22 @ 06:19 by Maru Thompson DO) Bacteremia due to Klebsiella pneumoniae (11/2021) Chronic anemia Diabetic peripheral neuropathy Fecal incontinence Gastroparesis History of alcohol abuse Hypothyroidism Insulin dependent type 2 diabetes mellitus Hemoglobin A1c was greater than 14% on 11/07/2021. Orthostatic hypotension (~11/2021) Osteopenia determined by x-ray Pancreatic insufficiency Pancreatitis Protein calorie malnutrition Pulmonary embolism Thoracic compression fracture T9, T10, T12 Tobacco dependence Surgical History Surgical History History of endoscopic retrograde cholangiopancreatography Patient reports pancreatic stent x2. Family History Family History Sibling Depression Family history of pancreatic disease Mother Acute myocardial infarction, Onset Age: 60 Social History Social History (Updated 02/25/22 @ 05:51 b
[2022-02-25] MEDS: POTASSIUM CHLORIDE 20 MEQ TABLET 80 MEQ PO (03:46)
[2022-02-25] MEDS: MAGNESIUM SULF 2 GM/WATER 50ML 2 GM/50 ML BAG IVPB (03:46)
[2022-02-25 05:37] LABS: Glucose Point of Care 144 mg/dl (65-105)
[2022-02-25] MEDS: LEVOTHYROXINE SODIUM 75 MCG TABLET PO (06:15)
--- NOTE | 2022-02-25 06:21 | WPDPROCEDUR ---
Procedures Central Line Placement Right Femoral: Central Line Date: 02/25/22 Central Line Time: 01:30 Consent: I have discussed with the patient and/or surrogate, the non-emergent placement of a central venous catheter, including its clinical necessity/indication and associated potential risks and complications. The patient and/or surrogate understand(s) and acknowledge(s) the need to proceed with central venous catheter insertion as an important element of the patient's clinical management. Time Out Performed: Yes Patient Position: trendelenburg Patient placed on monitor/pulse ox: Yes Provider Prep: mask, sterile gown, sterile gloves, Max. sterile barrier precautions, cap and hand hygiene with conventional soap/water or alcohol based hand rub Central line prep: 2% Chlorhexidine scrub Local anesthesia used: lidocaine 1% Amount of anesthesia used (ml): 5 Sterile US Technique with sterile gel/sterile probe covers: Yes Additional comments: Failed central line attempt. Cot initial return of blood but guidewire would not feed. Despite visualization of the needle within the femoral vein were unable to advanced guidewire. Procedure was attempted by 2 providers without success. Patient was only requiring low-dose pressors and further central line attempts were halted.
[2022-02-25 06:36] LABS: Hematocrit 33.9 % (42.0-52.0); Hemoglobin 11.9 g/dL (14.0-18.0); Mean Corpuscular HGB Conc 35.1 g/dl (32-36); Mean Corpuscular Hemoglobin 28.2 pg (26-34); Mean Corpuscular Volume 80.3 fl (80-100); Mean Platelet Volume 8.8 fl (7.4-10.4); Platelet Count Result 336 k/mm3 (150-375); Red Blood Count 4.22 M/mm3 (4.6-6.20); Red Cell Distribution Width 12.8 % (11.5-14.5)
[2022-02-25 06:47] LABS: Anion Gap 6 mmol/L (8-16); Blood Urea Nitrogen 28 mg/dL (9-20); Calcium 7.1 mg/dL (8.4-10.2); Carbon Dioxide 25 mmol/L (22-30); Chloride 107 mmol/L (98-107); Estimated CRCL calculation 30 ml/min; Estimated Glomerular Filt Rate 57; Glucose 142 mg/dL (65-110); Sodium 138 mmol/L (137-145)
[2022-02-25 07:24] LABS: Glucose Point of Care 199 mg/dl (65-105)
[2022-02-25] MEDS: POTASSIUM CHLORIDE 20 MEQ PACKET (FOR LIQUID) 40 MEQ PO (10:51)
[2022-02-25] MEDS: POTASSIUM CHLORIDE INJ 40 MEQ in SODIUM CHLORIDE 0.9% IV 500 ML 130 MEQ IVPB (10:54)
[2022-02-25] MEDS: CALCIUM GLUC 1,000 MG/NS 50 ML 1,000 MG/50 ML BAG 100 MG IVPB ×2 (10:54→18:50)
[2022-02-25] MEDS: KCL 20 MEQ/D5/0.45% SOD CHL 1,000 ML 150 ML IV CONT ×2 (10:59→17:36)
[2022-02-25] MEDS: THIAMINE HCL 100 MG TABLET BY MOUTH (11:22)
[2022-02-25] MEDS: PREGABALIN (*CRX) 75 MG CAPSULE PO ×2 (11:22→20:58)
[2022-02-25] MEDS: FOLIC ACID 1 MG TABLET BY MOUTH (11:22)
[2022-02-25] MEDS: ENOXAPARIN 30 MG/0.3 ML SYRINGE SUB-Q (11:25)
[2022-02-25] MEDS: ZINC SULFATE 220 MG CAPSULE PO (11:25)
[2022-02-25] MEDS: MIDODRINE HCL 10 MG TABLET BY MOUTH ×2 (11:25→17:38)
[2022-02-25] MEDS: TAMSULOSIN HCL 0.4 MG CAPSULE PO (11:25)
[2022-02-25] MEDS: CHOLECALCIFEROL 1,000 UNITS TABLET 1000 UNITS BY MOUTH (11:25)
[2022-02-25] MEDS: FERROUS SULFATE 324 MG TABLET PO ×2 (11:26→17:38)
[2022-02-25] MEDS: DULoxetine HCL 20 MG CAPSULE.DR PO (11:26)
[2022-02-25] MEDS: FLUDROCORTISONE ACETATE 0.1 MG TABLET PO (11:27)
[2022-02-25] MEDS: LIPASE/AMYLASE/PROTEASE 12,000 UNITS CAP 2 CAP PO ×2 (11:28→17:38)
[2022-02-25 11:36] LABS: Glucose Point of Care 391 mg/dl (65-105)
--- NOTE | 2022-02-25 13:21 | WPDCNINT ---
Assessment and Plan Assessment and plan (1) Septic shock: Code(s): A41.9 - Sepsis, unspecified organism; R65.21 - Severe sepsis with septic shock Status: Acute Assessment and Plan: Secondary to UTI and possibly pneumonia Urine and blood cultures Continue IV fluid Levophed to maintain map Continue Rocephin azithromycin which will go for both pneumonia and UTI Check urine Legionella and pneumococcal antigen PICC line obtained for central venous access (2) Urinary tract infection: Code(s): N39.0 - Urinary tract infection, site not specified Status: Acute Assessment and Plan: See above (3) Pneumonia: Code(s): J18.9 - Pneumonia, unspecified organism Status: Acute Assessment and Plan: See above (4) Hypoglycemia: Code(s): E16.2 - Hypoglycemia, unspecified Status: Acute Assessment and Plan: Resolved with treatment and now blood glucose elevated (5) Insulin dependent type 2 diabetes mellitus: Code(s): E11.9 - Type 2 diabetes mellitus without complications; Z79.4 - supervisor powdered metal (current) use of insulin Status: Acute Assessment and Plan: Sliding scale insulin (6) Acute renal failure: Qualifiers: Acute renal failure type: with acute tubular necrosis Qualified Code(s): N17.0 - Acute kidney failure with tubular necrosis Code(s): N17.9 - Acute kidney failure, unspecified Status: Acute Assessment and Plan: Likely secondary to sepsis and hypovolemia Creatinine improving with IV fluids Check CK \no hydronephrosis on the CT of abdomen pelvis (7) Pancreatic insufficiency: Code(s): K86.89 - Other specified diseases of pancreas Status: Acute Assessment and Plan: Resume Chris (8) Protein calorie malnutrition: Qualifiers: Protein-calorie malnutrition severity: severe Qualified Code(s): E43 - Unspecified severe protein-calorie malnutrition Code(s): E46 - Unspecified protein-calorie malnutrition Status: Acute Assessment and Plan: Regular diet pancreatic enzyme supplementation and multivitamin (9) Electrolyte abnormality: Code(s): E87.8 - Other disorders of electrolyte and fluid balance, not elsewhere classified Status: Acute Assessment and Plan: Potassium calcium replacement ordered Repeat BMP ordered (10) Decubitus ulcer: Code(s): L89.90 - Pressure ulcer of unspecified site, unspecified stage Status: Acute Assessment and Plan: Chronic ulcer but does not look infected Was evaluated by wound care nurse (11) BPH (benign prostatic hyperplasia): Code(s): N40.0 - Benign prostatic hyperplasia without lower urinary tract symptoms Status: Acute Assessment and Plan: Continue Flomax Voiding trial before discharge currently has Ellison catheter Additional Plan DVT prophylaxis -Lovenox Nutrition -regular diet Code Status - Full Code Total Critical Care Time - 32 minutes Due to a high probability of clinically significant, life threatening deterioration, the patient required my highest level of preparedness to intervene emergently and I personally spent this critical care time directly and personally managing the patient. This critical care time included obtaining a history; examining the patient; pulse oximetry; ordering and review of studies; arranging urgent treatment with development of a management plan; evaluation of patient's response to treatment; frequent reassessment; and discussions with other providers. It was exclusive of separately billable procedures and treating other patients and teaching time. Please see Assessment and Plan section and the rest of the note for further information on patient assessment and treatment [employer] Consult Note Consult date: 02/25/22 Reason for consult: Septic shock HPI: Shad Rodriguez is a 57 year old male with past medical history of chronic pancreatitis and panc
[2022-02-25] MEDS: INSULIN ASPART (*BKC) 100 UNITS/ML 8 UNITS SUB-Q (13:41)
[2022-02-25 14:41] LABS: Toxigenic C. Diff NEGATIVE (NEGATIVE)
[2022-02-25] MEDS: CENTRAL LINE FLUSH 10 ML IV PUSH ×2 (15:23→21:24)
[2022-02-25 15:53] LABS: Creatine Kinase 54 U/L (55-170)
[2022-02-25 16:52] LABS: Glucose Point of Care 437 mg/dl (65-105)
[2022-02-25] MEDS: ALBUMIN HUMAN 25% 25 GM/100 ML 100 ML IVPB ×2 (17:36→23:17)
[2022-02-25 18:14] LABS: Anion Gap 5 mmol/L (8-16); Blood Urea Nitrogen 15 mg/dL (9-20); Calcium 5.8 mg/dL (8.4-10.2); Carbon Dioxide 15 mmol/L (22-30); Chloride 106 mmol/L (98-107); Estimated CRCL calculation 48 ml/min; Estimated Glomerular Filt Rate > 60; Sodium 126 mmol/L (137-145)
[2022-02-25 18:16] LABS: Potassium 8.1 mmol/L (3.4-5.0)
[2022-02-25 18:17] LABS: Glucose 1132 mg/dL (65-110)
[2022-02-25 18:36] LABS: Glucose Point of Care 395 mg/dl (65-105)
[2022-02-25] MEDS: INSULIN HUMAN REGULAR (*BKC) 100 UNITS/ML IV PUSH (18:43)
[2022-02-25 19:47] LABS: Anion Gap 5 mmol/L (8-16); Blood Urea Nitrogen 17 mg/dL (9-20); Calcium 7.4 mg/dL (8.4-10.2); Carbon Dioxide 21 mmol/L (22-30); Chloride 108 mmol/L (98-107); Estimated CRCL calculation 39 ml/min; Estimated Glomerular Filt Rate > 60; Glucose 370 mg/dL (65-110); Potassium 4.9 mmol/L (3.4-5.0); Sodium 134 mmol/L (137-145)
[2022-02-25 19:48] LABS: Anion Gap 6 mmol/L (8-16); Blood Urea Nitrogen 17 mg/dL (9-20); Calcium 7.8 mg/dL (8.4-10.2); Carbon Dioxide 20 mmol/L (22-30); Chloride 109 mmol/L (98-107); Estimated CRCL calculation 43 ml/min; Estimated Glomerular Filt Rate > 60; Glucose 293 mg/dL (65-110); Potassium 4.1 mmol/L (3.4-5.0); Sodium 135 mmol/L (137-145)
--- NOTE | 2022-02-25 19:50 | PC.NURSE ---
Patient advised that the only person staff may speak with on the phone is his POA, and sister, Beth De. Patient and sister advised that the following visitors are allowed: Gabriel and Ludmila De (mom & dad), Mary Kate (sister and [id number]), Kurtis and Latasha Rodriguez (brother and [id number]).
--- NOTE | 2022-02-25 19:54 | PC.NURSE ---
Part of plan for patient today was to titrate levophed as patient tolerates. At 1430 blood pressure was 93/61, and Levophed was infusing at 2 mcg/min. Levophed was placed on standy, and 1445 blood pressure noted to be 75/47. Levophed was restarted at that time at 5 mcg/min per protocol. Additionally, Levophed was placed on standby during a routine lab draw at 1715, and 1730 blood pressure noted to be 68/38. Levophed was again restarted at 5 mcg/min per protocol. During both of these episodes, patient remained alert, and was speaking to nurse.
--- NOTE | 2022-02-25 20:05 | PC.NURSE ---
This nurse received critical lab values: Potassium 8.1 & Glucose 1132. Dr Vo was notified, orders obtained to obtain a blood glucose finger stick - 394, stat BMP peripherally and through PICC line to compare values, Regular insulin 5 units ivpush, Calcium Gluconate 1 gm iv. Results of bmp will be reported to Dr. Vo by oncoming nurse.
--- NOTE | 2022-02-25 20:10 | PM.IMPN ---
Progress Note: A&P Assessment and Plan (1) Septic shock: Code(s): A41.9 - Sepsis, unspecified organism; R65.21 - Severe sepsis with septic shock Status: Acute Assessment and Plan: Secondary to UTI and possibly pneumonia Ucx & BCX sent Continue IV fluid Levophed to maintain map Continue Rocephin azithromycin which will go for both pneumonia and UTI Check urine Legionella and pneumococcal antigen PICC line obtained for central venous access -Mangement per ICU (2) Urinary tract infection: Code(s): N39.0 - Urinary tract infection, site not specified Status: Acute Assessment and Plan: UCX pending. Continue ceftiraxone. (3) Pneumonia: Code(s): J18.9 - Pneumonia, unspecified organism Status: Acute Assessment and Plan: Continue ceftriaxone and azithromycin. (4) Hypoglycemia: Code(s): E16.2 - Hypoglycemia, unspecified Status: Acute Assessment and Plan: Resolved with treatment and now blood glucose elevated (5) Insulin dependent type 2 diabetes mellitus: Code(s): E11.9 - Type 2 diabetes mellitus without complications; Z79.4 - watermelon inspector (current) use of insulin Status: Acute Assessment and Plan: Sliding scale insulin (6) Acute renal failure: Qualifiers: Acute renal failure type: with acute tubular necrosis Qualified Code(s): N17.0 - Acute kidney failure with tubular necrosis Code(s): N17.9 - Acute kidney failure, unspecified Status: Acute Assessment and Plan: Likely due to sepsis and dehydration. Improving. Will monitor. (7) Pancreatic insufficiency: Code(s): K86.89 - Other specified diseases of pancreas Status: Acute Assessment and Plan: Resume Creon (8) Protein calorie malnutrition: Qualifiers: Protein-calorie malnutrition severity: severe Qualified Code(s): E43 - Unspecified severe protein-calorie malnutrition Code(s): E46 - Unspecified protein-calorie malnutrition Status: Acute Assessment and Plan: Regular diet pancreatic enzyme supplementation and multivitamin (9) Electrolyte abnormality: Code(s): E87.8 - Other disorders of electrolyte and fluid balance, not elsewhere classified Status: Acute Assessment and Plan: Potassium calcium replacement ordered Repeat BMP ordered (10) Decubitus ulcer: Code(s): L89.90 - Pressure ulcer of unspecified site, unspecified stage Status: Acute Assessment and Plan: Chronic ulcer but does not look infected Was evaluated by wound care nurse (11) BPH (benign prostatic hyperplasia): Code(s): N40.0 - Benign prostatic hyperplasia without lower urinary tract symptoms Status: Acute Assessment and Plan: Continue Flomax Voiding trial before discharge currently has Ellison catheter Plan Will likely need placement. Has been unsatisfied with [facility], which is where left AMA. Subjective Date/time seen: 02/25/22 20:10 Patient says he feels better but need some sugar. Says he left his facility due to having low blood sugar 3x recently. Review of Systems Neurologic: Denies confusion Exam Narrative: GENERAL: NAD, cooperative HEENT: Normocephalic, atraumatic, anicteric NECK: No bruits bilaterally, no JVD, no thyromegaly, no lymphadenopathy CV: Normal S1, S2, RRR, No MRG RESP: CTAB, Normal work of breathing. EXTREMITIES: Warm and well perfused, no clubbing, cyanosis, or edema. SKIN: warm, dry and intact. NEURO: CN 2-12 grossly intact. Objective Data Vital Signs Vital Signs: Vital Signs - 24 hr 02/25/22 00:46 02/25/22 00:51 02/25/22 00:40 Temperature 97.6 F Pulse Rate 62 53 L 74 Respiratory Rate 15 Blood Pressure 72/55 L Pulse Oximetry 99 Oxygen Delivery 02/25/22 00:50 02/25/22 02:00 02/25/22 02:00 Temperature Pulse Rate 66 66 Respiratory Rate 12 Blood Pressure 107/77 Pulse Oximetry 10
[2022-02-25] MEDS: SODIUM CHLORIDE 0.9% IV 1,000 ML 75 ML IV CONT (20:47)
[2022-02-25] MEDS: INSULIN GLARGINE (*BKC) 100 UNITS/ML 20 UNITS SUB-Q (20:51)
[2022-02-25 20:52] LABS: Glucose Point of Care 276 mg/dl (65-105)
[2022-02-25] MEDS: INSULIN ASPART (*BKC) 100 UNITS/ML SUB-Q (20:52)
[2022-02-25] MEDS: NOREPINEPHRINE 8 MG/D5W 250 ML 8 MG/250 ML BAG 1.88 MG IV CONT (22:20)
--- NOTE | 2022-02-25 23:37 | ECG_ITS ---
Measurements Intervals [place] Rate: 50 P: LA: 0 QRS: 61 QRSD: 103 T: 96 QT: 513 QTc: 472 Interpretive Statements SINUS BRADYCARDIA WITH PAC SUSPECT RECENT ANTERIOR W[place] LONG QT INTERVAL ABNORMAL ECG COMPARED WITH 02/24/2022 HEART RATE IS SIGNIFICANTLY REDUCED AND ACUTE ISCHEMIC ST SEGMENT ABNORMALITIES ARE IMPROVED Electronically Signed On 02-27-2022 16:10:49 CDT by Yoegsh Parikh M.D.
[2022-02-26] VITALS (19 sets, daily range): BP systolic 76–141; BP diastolic 48–89; PULSE 42–81; RESP 12–20; TEMP 36.6–36.8; O2SAT 97–100
[2022-02-26] MEDS: DEXTROSE 50% 25 GM/50 ML SYRINGE IV PUSH (00:22)
[2022-02-26 00:31] LABS: Glucose Point of Care 40 mg/dl (65-105)
[2022-02-26 00:50] LABS: Glucose Point of Care 92 mg/dl (65-105)
[2022-02-26 01:22] LABS: Alanine Aminotransferase 9 U/L (6-50); Albumin Level 3.4 g/dL (3.5-5.1); Alkaline Phosphatase 123 U/L (38-126); Anion Gap 4 mmol/L (8-16); Aspartate Amino Transferase 19 U/L (17-59); Bilirubin,Total < 0.1 mg/dL (0.2-1.3); Blood Urea Nitrogen 15 mg/dL (9-20); Calcium 8.2 mg/dL (8.4-10.2); Carbon Dioxide 23 mmol/L (22-30); Chloride 111 mmol/L (98-107); Estimated CRCL calculation 48 ml/min; Estimated Glomerular Filt Rate > 60; Glucose < 30 mg/dL (65-110); Magnesium 1.7 mg/dL (1.6-2.3); Potassium 3.8 mmol/L (3.4-5.0); Sodium 138 mmol/L (137-145)
[2022-02-26] MEDS: MAGNESIUM SULF 2 GM/WATER 50ML 2 GM/50 ML BAG IVPB (01:42)
[2022-02-26 01:53] LABS: Glucose Point of Care 59 mg/dl (65-105)
[2022-02-26] MEDS: DEXTROSE 5%/0.45% SOD CHL 1,000 ML 50 ML IV CONT (01:56)
[2022-02-26 02:08] LABS: Phosphorus < 0.5 mg/dL (2.5-4.5)
[2022-02-26 02:36] LABS: Glucose Point of Care 115 mg/dl (65-105)
[2022-02-26] MEDS: ALBUMIN HUMAN 25% 25 GM/100 ML 100 ML IVPB ×2 (04:58→12:17)
[2022-02-26] MEDS: CENTRAL LINE FLUSH 10 ML IV PUSH ×2 (04:59→21:00)
[2022-02-26 05:07] LABS: Hematocrit 28.9 % (42.0-52.0); Hemoglobin 9.7 g/dL (14.0-18.0); Mean Corpuscular HGB Conc 33.6 g/dl (32-36); Mean Corpuscular Hemoglobin 28.4 pg (26-34); Mean Corpuscular Volume 84.5 fl (80-100); Mean Platelet Volume 8.7 fl (7.4-10.4); Platelet Count Result 220 k/mm3 (150-375); Red Blood Count 3.42 M/mm3 (4.6-6.20); White Blood Count 9.7 K/mm3 (4.5-10.0)
[2022-02-26 05:19] LABS: Glucose Point of Care 82 mg/dl (65-105)
[2022-02-26 05:27] LABS: Alanine Aminotransferase 8 U/L (6-50); Alkaline Phosphatase 111 U/L (38-126); Anion Gap 3 mmol/L (8-16); Aspartate Amino Transferase 18 U/L (17-59); Bilirubin,Total < 0.1 mg/dL (0.2-1.3); Blood Urea Nitrogen 13 mg/dL (9-20); Calcium 7.8 mg/dL (8.4-10.2); Carbon Dioxide 25 mmol/L (22-30); Chloride 110 mmol/L (98-107); Estimated CRCL calculation 60 ml/min; Estimated Glomerular Filt Rate > 60; Glucose 59 mg/dL (65-110); Magnesium 2.1 mg/dL (1.6-2.3); Potassium 3.8 mmol/L (3.4-5.0); Sodium 138 mmol/L (137-145)
[2022-02-26 06:14] LABS: Glucose Point of Care 92 mg/dl (65-105)
[2022-02-26] MEDS: LEVOTHYROXINE SODIUM 75 MCG TABLET PO (06:20)
[2022-02-26 06:49] LABS: Hematocrit 29.6 % (42.0-52.0); Hemoglobin 9.9 g/dL (14.0-18.0); Mean Corpuscular HGB Conc 33.4 g/dl (32-36); Mean Corpuscular Hemoglobin 28.3 pg (26-34); Mean Corpuscular Volume 84.6 fl (80-100); Mean Platelet Volume 9.6 fl (7.4-10.4); Platelet Count Result 185 k/mm3 (150-375); White Blood Count 9.1 K/mm3 (4.5-10.0)
[2022-02-26 07:00] LABS: Alanine Aminotransferase 9 U/L (6-50); Albumin Level 3.4 g/dL (3.5-5.1); Alkaline Phosphatase 91 U/L (38-126); Anion Gap 10 mmol/L (8-16); Aspartate Amino Transferase 20 U/L (17-59); Bilirubin,Total 0.3 mg/dL (0.2-1.3); Blood Urea Nitrogen 12 mg/dL (9-20); Calcium 7.9 mg/dL (8.4-10.2); Carbon Dioxide 19 mmol/L (22-30); Chloride 110 mmol/L (98-107); Estimated CRCL calculation 60 ml/min; Estimated Glomerular Filt Rate > 60; Glucose 81 mg/dL (65-110); Sodium 139 mmol/L (137-145)
[2022-02-26 07:24] LABS: Glucose Point of Care 188 mg/dl (65-105)
[2022-02-26] MEDS: CALCIUM GLUC 2,000 MG/NS 100ML 2,000 MG/100 ML BAG 100 MG IVPB (08:33)
[2022-02-26] MEDS: PREGABALIN (*CRX) 75 MG CAPSULE PO ×2 (08:33→20:51)
[2022-02-26] MEDS: MIDODRINE HCL 10 MG TABLET BY MOUTH ×3 (08:34→20:50)
[2022-02-26] MEDS: FOLIC ACID 1 MG TABLET BY MOUTH (08:34)
[2022-02-26] MEDS: FERROUS SULFATE 324 MG TABLET PO ×2 (08:34→12:17)
[2022-02-26] MEDS: FLUDROCORTISONE ACETATE 0.1 MG TABLET PO (08:34)
[2022-02-26] MEDS: THIAMINE HCL 100 MG TABLET BY MOUTH (08:35)
[2022-02-26] MEDS: LIPASE/AMYLASE/PROTEASE 12,000 UNITS CAP 2 CAP PO ×3 (08:35→20:50)
[2022-02-26] MEDS: ENOXAPARIN 30 MG/0.3 ML SYRINGE SUB-Q (08:35)
[2022-02-26] MEDS: CHOLECALCIFEROL 1,000 UNITS TABLET 1000 UNITS BY MOUTH (08:35)
[2022-02-26] MEDS: TAMSULOSIN HCL 0.4 MG CAPSULE PO (08:35)
[2022-02-26] MEDS: DULoxetine HCL 20 MG CAPSULE.DR PO (08:35)
[2022-02-26] MEDS: ZINC SULFATE 220 MG CAPSULE PO (08:36)
--- NOTE | 2022-02-26 08:57 | PM.IMPN ---
Progress Note: A&P Assessment and Plan (1) Septic shock: Code(s): A41.9 - Sepsis, unspecified organism; R65.21 - Severe sepsis with septic shock Status: Acute Assessment and Plan: Secondary to UTI versus pneumonia. UCX pending. 1/2 BCX with klebsiella pneumonia. Still on pressors. Continue ceftriaxone Management per ICU. (2) Urinary tract infection: Code(s): N39.0 - Urinary tract infection, site not specified Status: Acute Assessment and Plan: UCX pending. Continue ceftriaxone. (3) Pneumonia: Code(s): J18.9 - Pneumonia, unspecified organism Status: Acute Assessment and Plan: Continue ceftriaxone and azithromycin. (4) Hypoglycemia: Code(s): E16.2 - Hypoglycemia, unspecified Status: Acute Assessment and Plan: Frequent fluctuations of BG. Hypoglycemia yesterday. (5) Insulin dependent type 2 diabetes mellitus: Code(s): E11.9 - Type 2 diabetes mellitus without complications; Z79.4 - intermediate frame tender (current) use of insulin Status: Acute (6) Acute renal failure: Qualifiers: Acute renal failure type: with acute tubular necrosis Qualified Code(s): N17.0 - Acute kidney failure with tubular necrosis Code(s): N17.9 - Acute kidney failure, unspecified Status: Acute Assessment and Plan: No hydronephrosis on the CT A/P. Likely due to septic shock. Will monitor. (7) Pancreatic insufficiency: Code(s): K86.89 - Other specified diseases of pancreas Status: Acute Assessment and Plan: Continue Creon (8) Protein calorie malnutrition: Qualifiers: Protein-calorie malnutrition severity: severe Qualified Code(s): E43 - Unspecified severe protein-calorie malnutrition Code(s): E46 - Unspecified protein-calorie malnutrition Status: Acute Assessment and Plan: Regular diet pancreatic enzyme supplementation and multivitamin (9) Electrolyte abnormality: Code(s): E87.8 - Other disorders of electrolyte and fluid balance, not elsewhere classified Status: Acute Assessment and Plan: Potassium calcium phosphate replacement ordered Repeat BMP and phosphate level ordered (10) Decubitus ulcer: Code(s): L89.90 - Pressure ulcer of unspecified site, unspecified stage Status: Acute Assessment and Plan: Chronic ulcer. Seen by wound consult. (11) BPH (benign prostatic hyperplasia): Code(s): N40.0 - Benign prostatic hyperplasia without lower urinary tract symptoms Status: Acute Assessment and Plan: Continue Flomax Voiding trial before discharge currently has Ellison catheter (12) Chronic diarrhea: Code(s): K52.9 - Noninfective gastroenteritis and colitis, unspecified Status: Acute Assessment and Plan: Chronic diarrhea likely secondary to put tree artery insufficiency -Continue Creon Subjective Date/time seen: 02/26/22 16:52 Patient says he feels cold. Says he wanted a blueberry muffin but was not given one for breakfast. Denies having pain or burning with urination prior to hospitalization. Review of Systems Genitourinary: Genitourinary: Denies dysuria Exam Narrative: GENERAL: NAD, cooperative HEENT: Normocephalic, atraumatic, anicteric NECK: No bruits bilaterally, no JVD, no thyromegaly, no lymphadenopathy CV: Normal S1, S2, RRR, No MRG RESP: CTAB, Normal work of breathing. EXTREMITIES: Warm and well perfused, no clubbing, cyanosis, or edema. SKIN: warm, dry and intact. NEURO: CN 2-12 grossly intact. Objective Data Vital Signs Vital Signs: Vital Signs - 24 hr 02/25/22 18:00 02/25/22 18:00 02/25/22 18:05 Temperature Pulse Rate 59 L 59 L 53 L Respiratory Rate 21 H Blood Pressure 113/79 113/79 Pulse Oximetry 100 Oxygen Delivery 02/25/22 20:47 02/25/22 20:40 02/25/22 20:00 Temperature 98.1 F Pulse Rate 60 49 L Respiratory Rate 15 Blood Pressu
[2022-02-26 08:58] LABS: Glucose Point of Care 94 mg/dl (65-105)
[2022-02-26] MEDS: cefTRIAXone 2 GM in SODIUM CHLORIDE 0.9% IV 100 ML 200 ML IVPB (10:48)
[2022-02-26 10:59] LABS: Glucose Point of Care 115 mg/dl (65-105)
--- NOTE | 2022-02-26 11:02 | PCFNICU ---
ICU Rounding Note: Pt current nutrition is DBCC. Last recorded weight is 42.3 kg up from 38.3 kg on admit. Bowel Motility: +BM-diarrhea reported. Labs Reviewed:Hgb 9.9,Hct 29.6 Meds Noted:Folic Acid, Ferrous Sulfate, Cymbalta,Minaprine,Zinc Sulfate, Vit D,Thiamine, Lyrica, Levophed, Lovenox, Albumin, Zithromax Skin: Deep Tissue-Right Ankle, Stage III Pressure Ulcer-Coccyx Additional Notes: Patient remains on a DBCC diet with Sincere BID and Glucerna shakes TID. Oral Intake has been 75-100% of meals. Nursing is reporting diarrhea, GI consult ordered. Agree with diet orders. Following daily in ICU rounds. RD will monitor every 5 days.
[2022-02-26] MEDS: HYDROCORTISONE SODIUM SUCCINATE 100 MG/2 ML VIAL IV PUSH ×2 (12:18→21:00)
[2022-02-26 12:46] LABS: Glucose Point of Care 232 mg/dl (65-105)
--- NOTE | 2022-02-26 13:16 | WPDINTPN ---
Progress Note: A&P Assessment and Plan (1) Septic shock: Code(s): A41.9 - Sepsis, unspecified organism; R65.21 - Severe sepsis with septic shock Status: Acute Assessment and Plan: Secondary to UTI and possibly pneumonia Urine cultures is negative now Blood cultures 1/2 is growing Klebsiella Levophed to maintain map Continue Rocephin azithromycin which will cover for both pneumonia and UTI Check urine Legionella and pneumococcal antigen PICC line obtained for central venous access Patient continues to require low-dose Levophed. He does have low blood pressure at baseline and is on midodrine at home Continue midodrine Check cortisol level Stress dose hydrocortisone Continue albumin today (2) Urinary tract infection: Code(s): N39.0 - Urinary tract infection, site not specified Status: Acute Assessment and Plan: See above (3) Pneumonia: Code(s): J18.9 - Pneumonia, unspecified organism Status: Acute Assessment and Plan: See above (4) Hypoglycemia: Code(s): E16.2 - Hypoglycemia, unspecified Status: Acute Assessment and Plan: Patient was started on D5 IV fluids overnight and now blood sugars have improved. Will discontinue IV fluids (5) Insulin dependent type 2 diabetes mellitus: Code(s): E11.9 - Type 2 diabetes mellitus without complications; Z79.4 - intermediate teacher (current) use of insulin Status: Acute Assessment and Plan: Sliding scale insulin to be continued Hold Lantus patient became hypoglycemic at night (6) Acute renal failure: Qualifiers: Acute renal failure type: with acute tubular necrosis Qualified Code(s): N17.0 - Acute kidney failure with tubular necrosis Code(s): N17.9 - Acute kidney failure, unspecified Status: Acute Assessment and Plan: Likely secondary to sepsis and hypovolemia Creatinine normalized with IV fluids Known CK No hydronephrosis on the CT of abdomen pelvis (7) Pancreatic insufficiency: Code(s): K86.89 - Other specified diseases of pancreas Status: Acute Assessment and Plan: Continue Creon (8) Protein calorie malnutrition: Qualifiers: Protein-calorie malnutrition severity: severe Qualified Code(s): E43 - Unspecified severe protein-calorie malnutrition Code(s): E46 - Unspecified protein-calorie malnutrition Status: Acute Assessment and Plan: Regular diet pancreatic enzyme supplementation and multivitamin (9) Electrolyte abnormality: Code(s): E87.8 - Other disorders of electrolyte and fluid balance, not elsewhere classified Status: Acute Assessment and Plan: Potassium calcium phosphate replacement ordered Repeat BMP and phosphate level ordered (10) Decubitus ulcer: Code(s): L89.90 - Pressure ulcer of unspecified site, unspecified stage Status: Acute Assessment and Plan: Chronic ulcer but does not look infected Was evaluated by wound care nurse (11) BPH (benign prostatic hyperplasia): Code(s): N40.0 - Benign prostatic hyperplasia without lower urinary tract symptoms Status: Acute Assessment and Plan: Continue Flomax Voiding trial before discharge currently has Ellison catheter (12) Chronic diarrhea: Code(s): K52.9 - Noninfective gastroenteritis and colitis, unspecified Status: Acute Assessment and Plan: Chronic diarrhea likely secondary to put tree artery insufficiency Continue Creon P.r.n. loperamide GI consulted Additional Plan DVT prophylaxis -Lovenox Nutrition -regular diet Code Status - Full Code Total Critical Care Time - 30 minutes Due to a high probability of clinically significant, life threatening deterioration, the patient required my highest level of preparedness to intervene emergently and I personally spent this critical care time directly and personally managing the patient. This critical care time included obtaining a
[2022-02-26 15:56] LABS: Anion Gap 9 mmol/L (8-16); Blood Urea Nitrogen 11 mg/dL (9-20); Calcium 8.3 mg/dL (8.4-10.2); Carbon Dioxide 23 mmol/L (22-30); Chloride 107 mmol/L (98-107); Estimated CRCL calculation 69 ml/min; Estimated Glomerular Filt Rate > 60; Glucose 238 mg/dL (65-110); Magnesium 1.6 mg/dL (1.6-2.3); Phosphorus 2.5 mg/dL (2.5-4.5); Potassium 3.7 mmol/L (3.4-5.0); Sodium 139 mmol/L (137-145)
[2022-02-26 16:33] LABS: Glucose Point of Care 268 mg/dl (65-105)
--- NOTE | 2022-02-26 17:00 | WPDGICN ---
Assessment and Plan Assessment and plan (1) Septic shock: Code(s): A41.9 - Sepsis, unspecified organism; R65.21 - Severe sepsis with septic shock Status: Acute Assessment and Plan: on medical therapy in ICU, still on pressors but better (2) Pancreatic insufficiency: Code(s): K86.89 - Other specified diseases of pancreas Status: Acute Assessment and Plan: this is also contributing to his diarrhea, expect to have more diarrhea now that he is on iv antibiotics to treat bacteremia will use pancreatic enzymes and imodium and continue medical support in icu (3) Gastroparesis: Code(s): K31.84 - Gastroparesis Status: Acute (4) Chronic pancreatitis: Code(s): K86.1 - Other chronic pancreatitis Status: Acute Assessment and Plan: known finding, reviewed ct scan (5) Protein calorie malnutrition: Qualifiers: Protein-calorie malnutrition severity: severe Qualified Code(s): E43 - Unspecified severe protein-calorie malnutrition Code(s): E46 - Unspecified protein-calorie malnutrition Status: Acute Assessment and Plan: also poorly controlled dm on diet and supplements (6) Insulin dependent type 2 diabetes mellitus: Code(s): E11.9 - Type 2 diabetes mellitus without complications; Z79.4 - halfway (current) use of insulin Status: Acute (7) Bacteremia due to Klebsiella pneumoniae: Code(s): R78.81 - Bacteremia; B96.1 - Klebsiella pneumoniae [K. pneumoniae] as the cause of diseases classified elsewhere Status: Acute Assessment and Plan: on iv antibiotics GI Consult Note Consult date/time: 02/26/22 17:00 Reason for consult: septic shock, chronic diarrhea, malnutrition HPI: Shad Rodriguez is a 57 year old male with past medical history of chronic pancreatitis and pancreatic insufficiency, diabetes with complications of diabetic neuropathy, gastroparesis who was transferred from another ER with altered mental status initially unable to provide any meaningful history.? He was found to be bradycardic and hypotensive with blood pressures in the 70s.? He received 2 doses of atropine and 3 L of IV fluids.? His glucoses on arrival to outside ER were 15 hypoglycemic and hypokalemic, also had renal failure. He was admitted here to ICU and continue with IV fluids and IV antibiotics, IV Levophed. Blood cultures + Klebsiella. Today he is alert and talking, he says that normally uses imodium for diarrhea. CT scan reviewed and showed moderate emphysema, chronic pancreatitis, loera catheter in urinary bladder; prominent urinary bladder wall thickening, mild to moderate anterior wedge compression fracture deformities of T8, T9 and T12 Review of Systems Constitutional: Constitutional: Reports fatigue and Reports lethargy Eyes: Eyes: Denies blurry vision ENT: Reports Normal hearing present Cardiovascular: Cardiovascular: Denies chest pain Respiratory: Respiratory: Denies hemoptysis Gastrointestinal: Gastrointestinal: Reports diarrhea Genitourinary: Genitourinary: Reports urinary frequency Musculoskeletal: Musculoskeletal: Reports back pain Neurologic: Reports confusion Psychiatric: Psychiatric: Reports anxiety [facility] [place] Past Medical History Medical History (Updated 02/26/22 @ 17:08 by Shahbaz Spence MD) Bacteremia due to Klebsiella pneumoniae (11/2021) Bacteremia due to Klebsiella pneumoniae Chronic anemia Diabetic peripheral neuropathy Fecal incontinence Gastroparesis History of alcohol abuse Hypothyroidism Insulin dependent type 2 diabetes mellitus Hemoglobin A1c was greater than 14% on 11/07/2021. Orthostatic hypotension (~11/2021) Osteopenia determined by x-ray Pancreatic insufficiency Pancreatitis Protein calorie malnutrition Pulmonary embolism Thoracic compression fracture T9, T10, T12 Tobacco dependence Surgical History Surgical History (Reviewed 02/25/22 @ 13:22 by Chucky Vo MD
[2022-02-26] MEDS: LACTATED RINGERS 1,000 ML 50 ML IV CONT (20:51)
[2022-02-26 20:58] LABS: Glucose Point of Care 253 mg/dl (65-105)
[2022-02-27] VITALS (17 sets, daily range): BP systolic 79–129; BP diastolic 54–82; PULSE 45–78; RESP 12–112; TEMP 36.2–36.8; O2SAT 96–100
[2022-02-27 00:42] LABS: Glucose Point of Care 340 mg/dl (65-105)
[2022-02-27] MEDS: INSULIN ASPART (*BKC) 100 UNITS/ML SUB-Q ×2 (00:43→23:23)
[2022-02-27 05:13] LABS: Alanine Aminotransferase 8 U/L (6-50); Albumin Level 3.2 g/dL (3.5-5.1); Alkaline Phosphatase 105 U/L (38-126); Anion Gap 7 mmol/L (8-16); Aspartate Amino Transferase 21 U/L (17-59); Bilirubin,Total 0.1 mg/dL (0.2-1.3); Blood Urea Nitrogen 11 mg/dL (9-20); Calcium 8.4 mg/dL (8.4-10.2); Carbon Dioxide 24 mmol/L (22-30); Chloride 109 mmol/L (98-107); Estimated CRCL calculation 69 ml/min; Estimated Glomerular Filt Rate > 60; Glucose 290 mg/dL (65-110); Hematocrit 29.9 % (42.0-52.0); Hemoglobin 10.1 g/dL (14.0-18.0); Magnesium 1.7 mg/dL (1.6-2.3); Mean Corpuscular HGB Conc 33.8 g/dl (32-36); Mean Corpuscular Hemoglobin 28.6 pg (26-34); Mean Corpuscular Volume 84.7 fl (80-100); Mean Platelet Volume 9.2 fl (7.4-10.4); Platelet Count Result 198 k/mm3 (150-375); Red Blood Count 3.53 M/mm3 (4.6-6.20); Red Cell Distribution Width 12.9 % (11.5-14.5); Sodium 140 mmol/L (137-145); White Blood Count 7.8 K/mm3 (4.5-10.0)
[2022-02-27] MEDS: CENTRAL LINE FLUSH 10 ML IV PUSH ×3 (05:19→20:44)
[2022-02-27] MEDS: LEVOTHYROXINE SODIUM 75 MCG TABLET PO (05:19)
[2022-02-27 05:25] LABS: Glucose Point of Care 325 mg/dl (65-105)
[2022-02-27] MEDS: LOPERAMIDE HCL 2 MG CAPSULE PO ×2 (05:25→10:43)
--- NOTE | 2022-02-27 08:23 | PM.IMPN ---
Progress Note: A&P Assessment and Plan (1) Septic shock: Code(s): A41.9 - Sepsis, unspecified organism; R65.21 - Severe sepsis with septic shock Status: Acute Assessment and Plan: Secondary to UTI and possibly pneumonia Urine cultures is negative now Blood cultures 1/2 is growing Klebsiella which is sensitive to Rocephin Levophed has been weaned off Continue Rocephin azithromycin which will cover for both pneumonia and UTI Pending urine Legionella and pneumococcal antigen PICC line obtained for central venous access Continue midodrine cortisol level was 12.1 Continue Stress dose hydrocortisone -Off albumin now and off pressors this morning. (2) Urinary tract infection: Code(s): N39.0 - Urinary tract infection, site not specified Status: Acute Assessment and Plan: See above (3) Pneumonia: Code(s): J18.9 - Pneumonia, unspecified organism Status: Acute Assessment and Plan: See above (4) Hypoglycemia: Code(s): E16.2 - Hypoglycemia, unspecified Status: Acute Assessment and Plan: Resolved and patient is now hyperglycemic. Ordered aspart 10 units x 1 for BG > 500. (5) Insulin dependent type 2 diabetes mellitus: Code(s): E11.9 - Type 2 diabetes mellitus without complications; Z79.4 - snf (current) use of insulin Status: Acute Assessment and Plan: Sliding scale insulin to be continued Resume Lantus but at a lower dose (6) Acute renal failure: Qualifiers: Acute renal failure type: with acute tubular necrosis Qualified Code(s): N17.0 - Acute kidney failure with tubular necrosis Code(s): N17.9 - Acute kidney failure, unspecified Status: Acute Assessment and Plan: Likely secondary to sepsis and hypovolemia Creatinine normalized with IV fluids Normal CK No hydronephrosis on the CT of abdomen pelvis (7) Pancreatic insufficiency: Code(s): K86.89 - Other specified diseases of pancreas Status: Acute Assessment and Plan: Continue Creon (8) Protein calorie malnutrition: Qualifiers: Protein-calorie malnutrition severity: severe Qualified Code(s): E43 - Unspecified severe protein-calorie malnutrition Code(s): E46 - Unspecified protein-calorie malnutrition Status: Acute Assessment and Plan: Regular diet pancreatic enzyme supplementation and multivitamin (9) Electrolyte abnormality: Code(s): E87.8 - Other disorders of electrolyte and fluid balance, not elsewhere classified Status: Acute Assessment and Plan: Magnesium replacement ordered (10) Decubitus ulcer: Code(s): L89.90 - Pressure ulcer of unspecified site, unspecified stage Status: Acute Assessment and Plan: Chronic ulcer but does not look infected Was evaluated by wound care nurse (11) BPH (benign prostatic hyperplasia): Code(s): N40.0 - Benign prostatic hyperplasia without lower urinary tract symptoms Status: Acute Assessment and Plan: Continue Flomax Voiding trial before discharge currently has Ellison catheter (12) Chronic diarrhea: Code(s): K52.9 - Noninfective gastroenteritis and colitis, unspecified Status: Acute Assessment and Plan: Chronic diarrhea likely secondary to pancreatic insufficiency Continue Creon P.r.n. loperamide GI following Will order Benotrol supplement Subjective Date/time seen: 02/27/22 18:23 Patient says he feels better and that he will be moving out of the ICU today. Review of Systems Genitourinary: Genitourinary: Denies dysuria Exam Narrative: GENERAL: NAD, cooperative HEENT: Normocephalic, atraumatic, anicteric NECK: Supple CV: Normal S1, S2, RRR, No MRG RESP: CTAB, Normal work of breathing. EXTREMITIES: Warm and well perfused, no clubbing, cyanosis, or edema. SKIN: warm, dry and intact. NEURO: CN 2-12 grossly intact. Objective Data Vital Signs Vit
[2022-02-27 09:07] LABS: Glucose Point of Care 379 mg/dl (65-105)
[2022-02-27] MEDS: ZINC SULFATE 220 MG CAPSULE PO (09:07)
[2022-02-27] MEDS: PREGABALIN (*CRX) 75 MG CAPSULE PO ×2 (09:08→20:44)
[2022-02-27] MEDS: FOLIC ACID 1 MG TABLET BY MOUTH (09:08)
[2022-02-27] MEDS: ENOXAPARIN 30 MG/0.3 ML SYRINGE SUB-Q (09:08)
[2022-02-27] MEDS: MIDODRINE HCL 10 MG TABLET BY MOUTH ×3 (09:08→16:33)
[2022-02-27] MEDS: THIAMINE HCL 100 MG TABLET BY MOUTH (09:08)
[2022-02-27] MEDS: TAMSULOSIN HCL 0.4 MG CAPSULE PO (09:08)
[2022-02-27] MEDS: LIPASE/AMYLASE/PROTEASE 12,000 UNITS CAP 2 CAP PO ×3 (09:09→16:33)
[2022-02-27] MEDS: HYDROCORTISONE SODIUM SUCCINATE 100 MG/2 ML VIAL IV PUSH ×3 (09:09→20:44)
[2022-02-27] MEDS: DULoxetine HCL 20 MG CAPSULE.DR PO (09:09)
[2022-02-27] MEDS: CHOLECALCIFEROL 1,000 UNITS TABLET 1000 UNITS BY MOUTH (09:09)
[2022-02-27] MEDS: FLUDROCORTISONE ACETATE 0.1 MG TABLET PO (09:09)
[2022-02-27] MEDS: FERROUS SULFATE 324 MG TABLET PO ×3 (09:09→16:33)
[2022-02-27] MEDS: cefTRIAXone 2 GM in SODIUM CHLORIDE 0.9% IV 100 ML 200 ML IVPB (09:16)
--- NOTE | 2022-02-27 11:03 | PCNFU ---
Nutrition Follow-Up Complete: Malnutrition as related to underweight with loss of fat and/or muscle as evidenced by reported limited access of food in the past couple of weeks(weight loss of 22 ibs >5% ) Goal: Adequate Intake of at least 75% of meals/supplements Patient is meeting current goal. No new goal. Pt current nutrition is DBCC with Glucerna shakes BID, Sincere BID and Banatrol Plus TID Last recorded weight is 42 kg. Bowel Motility:+BM reported-Diarrhea Labs Reviewed: Glu 290, Cr 0.9,Alb 3.2,Hct 29.9,Hgb 10.1 Meds Noted:Folic Acid, Ferrous Sulfate, Cymbalta,Minaprine,Zinc Sulfate, Vit D,Thiamine, Lyrica, Levophed, Lovenox, Albumin, Zithromax Skin: Deep Tissue-Right Ankle, Stage III Pressure Ulcer-Coccyx Additional Notes: Patient remains on a DBCC diet, eating 75-100% of meals. Diet supplements of Glucerna BID providing an additional 220 kcals and 10 gms protein. Sincere BID for wound healing providing 90 kcals and 2.5 gms protein. Patient is having large amounts of diarrhea, orders for Banatrol Plus today TID for stool bulking. PT/OT ordered. Agree with diet orders. Monitoring: RD will monitor every 5 days.
--- NOTE | 2022-02-27 11:43 | WPDINTPN ---
Progress Note: A&P Assessment and Plan (1) Septic shock: Code(s): A41.9 - Sepsis, unspecified organism; R65.21 - Severe sepsis with septic shock Status: Acute Assessment and Plan: Secondary to UTI and possibly pneumonia Urine cultures is negative now Blood cultures 1/2 is growing Klebsiella which is sensitive to Rocephin Levophed has been weaned off Continue Rocephin azithromycin which will cover for both pneumonia and UTI Pending urine Legionella and pneumococcal antigen PICC line obtained for central venous access Continue midodrine cortisol level was 12.1 Continue Stress dose hydrocortisone Off albumin now (2) Urinary tract infection: Code(s): N39.0 - Urinary tract infection, site not specified Status: Acute Assessment and Plan: See above (3) Pneumonia: Code(s): J18.9 - Pneumonia, unspecified organism Status: Acute Assessment and Plan: See above (4) Hypoglycemia: Code(s): E16.2 - Hypoglycemia, unspecified Status: Acute Assessment and Plan: Resolved and patient is now hyperglycemic (5) Insulin dependent type 2 diabetes mellitus: Code(s): E11.9 - Type 2 diabetes mellitus without complications; Z79.4 - termite exterminator helper (current) use of insulin Status: Acute Assessment and Plan: Sliding scale insulin to be continued Resume Lantus but at a lower dose (6) Acute renal failure: Qualifiers: Acute renal failure type: with acute tubular necrosis Qualified Code(s): N17.0 - Acute kidney failure with tubular necrosis Code(s): N17.9 - Acute kidney failure, unspecified Status: Acute Assessment and Plan: Likely secondary to sepsis and hypovolemia Creatinine normalized with IV fluids Normal CK No hydronephrosis on the CT of abdomen pelvis (7) Pancreatic insufficiency: Code(s): K86.89 - Other specified diseases of pancreas Status: Acute Assessment and Plan: Continue Creon (8) Protein calorie malnutrition: Qualifiers: Protein-calorie malnutrition severity: severe Qualified Code(s): E43 - Unspecified severe protein-calorie malnutrition Code(s): E46 - Unspecified protein-calorie malnutrition Status: Acute Assessment and Plan: Regular diet pancreatic enzyme supplementation and multivitamin (9) Electrolyte abnormality: Code(s): E87.8 - Other disorders of electrolyte and fluid balance, not elsewhere classified Status: Acute Assessment and Plan: Magnesium replacement ordered (10) Decubitus ulcer: Code(s): L89.90 - Pressure ulcer of unspecified site, unspecified stage Status: Acute Assessment and Plan: Chronic ulcer but does not look infected Was evaluated by wound care nurse (11) BPH (benign prostatic hyperplasia): Code(s): N40.0 - Benign prostatic hyperplasia without lower urinary tract symptoms Status: Acute Assessment and Plan: Continue Flomax Voiding trial before discharge currently has Ellison catheter (12) Chronic diarrhea: Code(s): K52.9 - Noninfective gastroenteritis and colitis, unspecified Status: Acute Assessment and Plan: Chronic diarrhea likely secondary to pancreatic insufficiency Continue Creon P.r.n. loperamide GI following Will order Benotrol supplement Additional Plan DVT prophylaxis -Lovenox Nutrition -regular diet Code Status - Full Code Incentive spirometry, up in chair, consult PT OT Transfer out of ICU today Subjective Date/time seen: 02/27/22 11:43 No significant change overnight. Levophed was weaned off yesterday evening. Continues to have diarrhea and no other new complaints. Tolerating p.o. diet Afebrile and other vital signs are stable. Room air Review of Systems Review of Systems: All systems reviewed & are unremarkable except as noted in HPI and below (Subjective) Exam Narrative: General: Pt is alert awake and in NAD. Cachecti
[2022-02-27 12:50] LABS: Glucose Point of Care > 500 mg/dl (65-105)
[2022-02-27] MEDS: INSULIN GLARGINE (*BKC) 100 UNITS/ML 15 UNITS SUB-Q (12:55)
[2022-02-27] MEDS: INSULIN ASPART (*BKC) 100 UNITS/ML 10 UNITS SUB-Q (12:57)
[2022-02-27] MEDS: LACTATED RINGERS 1,000 ML 50 ML IV CONT (14:36)
--- NOTE | 2022-02-27 15:22 | WPDGIPROGNO ---
Progress Note: A&P Assessment and Plan (1) Chronic diarrhea: Code(s): K52.9 - Noninfective gastroenteritis and colitis, unspecified Status: Acute Assessment and Plan: chronic and probably this is from pancreatic insufficiency, continue with creon and imodium he has good appetite I can also do a colonoscopy as outpatient with random bx (he says that last one over 10 years) (2) Pancreatic insufficiency: Code(s): K86.89 - Other specified diseases of pancreas Status: Acute Assessment and Plan: on creon (3) Bacteremia due to Klebsiella pneumoniae: Code(s): R78.81 - Bacteremia; B96.1 - Klebsiella pneumoniae [K. pneumoniae] as the cause of diseases classified elsewhere Status: Acute Assessment and Plan: on antibiotic no longer on levophed, better (4) Insulin dependent type 2 diabetes mellitus: Code(s): E11.9 - Type 2 diabetes mellitus without complications; Z79.4 - keno terminal operator (current) use of insulin Status: Acute (5) Septic shock: Code(s): A41.9 - Sepsis, unspecified organism; R65.21 - Severe sepsis with septic shock Status: Acute Assessment and Plan: resolved Subjective Date/time seen: 02/27/22 15:23 overall better, no more levophed. Still diarrhea specially after eating which is chronic Review of Systems Review of Systems: All systems reviewed & are unremarkable except as noted in HPI and below (Subjective) Exam Const: General: comfortable Other: cachectic HENMT: General nose exam: Normal nares present Eyes: General: appearance normal, both eyes and all related structures Neck: Neck: supple Resp: Auscultation: clear to auscultation bilaterally Cardio: Rate: regular rate GI: GI Palp: Yes Soft to palpation, No Firmness to palpation present (GI), No Tenderness to palpation present (GI) and No Guarding due to palpation present (GI) Auscultation: normal bowel sounds Urinary Catheter: Urinary Catheter: patent and draining Skin: General skin exam: normal color Neuro: Other: awake and alert now Extrem: General: normal to inspection Psych: Mental Status: mental status grossly normal Objective Data Vital Signs Vital Signs: Vital Signs - 24 hr 02/26/22 16:00 02/26/22 16:00 02/26/22 16:00 Temperature Pulse Rate 61 56 L 57 L Respiratory Rate 12 12 Blood Pressure 77/53 L Pulse Oximetry 99 99 Oxygen Delivery Room Air 02/26/22 18:00 02/26/22 18:00 02/26/22 20:00 Temperature Pulse Rate 62 62 Respiratory Rate 15 Blood Pressure 135/89 Pulse Oximetry 97 Oxygen Delivery Room Air 02/26/22 20:00 02/26/22 20:00 02/26/22 22:00 Temperature 98.2 F Pulse Rate 59 L 56 L 61 Respiratory Rate 12 13 Blood Pressure 102/72 82/48 L Pulse Oximetry 98 100 Oxygen Delivery 02/26/22 22:00 02/27/22 00:00 02/27/22 00:00 Temperature 98 F Pulse Rate 61 61 49 L Respiratory Rate 13 13 Blood Pressure 110/70 Pulse Oximetry 100 99 Oxygen Delivery Room Air 02/27/22 00:00 02/26/22 19:00 02/27/22 02:00 Temperature Pulse Rate 51 L 59 L 49 L Respiratory Rate Blood Pressure 96/67 L Pulse Oximetry Oxygen Delivery 02/27/22 02:00 02/27/22 04:00 02/27/22 04:15 Temperature 98.2 F Pulse Rate 54 L 54 L 53 L Respiratory Rate 13 13 112 H Blood Pressure 93/60 L 107/75 Pulse Oximetry 100 100 100 Oxygen Delivery Room Air 02/27/22 04:00 02/27/22 08:06 02/27/22 08:00 Temperature Pulse Rate 50 L 49 L Respiratory Rate 12 Blood Pressure 94/57 L Pulse Oximetry 98 98 Oxygen Delivery Room Air 02/27/22 10:47 02/27/22 10:00 02/27/22 10:50 Temperature 97.6 F Pulse Rate 71 Respiratory Rate 12 Blood Pressure 105/54 L Pulse Oximetry 100 Oxygen Delivery Room Air 02/27/22 12:44 02/27/22 08:00 02/27/22 10:00 Temperature 97.5 F L Pulse Rate 71 62 70 Respiratory Rate 13 Blood Pressure 124/82 Pulse Oximetry 100 Oxygen Delivery
--- NOTE | 2022-02-27 16:15 | PC.NURSE ---
This patient, Shad Rodriguez, was transferred to [facility] on 02/27/22 at 1557. Personal belongings sent with patient. Report given to Yesica RAMIREZ. Appropriate documentation sent with patient.
[2022-02-27 16:30] LABS: Glucose Point of Care > 500 mg/dl (65-105)
[2022-02-27] MEDS: INSULIN HUMAN REGULAR (*BKC) 100 UNITS/ML 10 UNITS SUB-Q (18:44)
[2022-02-27 19:22] LABS: Pneumococcal Antigen Urine Not Detected (Not Detected)
[2022-02-27 20:58] LABS: Glucose Point of Care > 500 mg/dl (65-105)
[2022-02-28] VITALS (12 sets, daily range): BP systolic 100–118; BP diastolic 57–71; PULSE 47–64; RESP 16–20; TEMP 36.1–36.6; O2SAT 98–100
[2022-02-28] MEDS: INSULIN ASPART (*BKC) 100 UNITS/ML SUB-Q ×4 (00:41→16:44)
[2022-02-28 00:50] LABS: Glucose Point of Care 298 mg/dl (65-105)
[2022-02-28] MEDS: HYDROCORTISONE SODIUM SUCCINATE 100 MG/2 ML VIAL IV PUSH ×2 (04:45→20:30)
[2022-02-28] MEDS: LEVOTHYROXINE SODIUM 75 MCG TABLET PO (04:45)
[2022-02-28] MEDS: CENTRAL LINE FLUSH 10 ML IV PUSH ×3 (04:45→20:30)
[2022-02-28 04:57] LABS: Glucose Point of Care 189 mg/dl (65-105)
[2022-02-28 05:18] LABS: Hematocrit 26.5 % (42.0-52.0); Hemoglobin 9.1 g/dL (14.0-18.0); Mean Corpuscular HGB Conc 34.3 g/dl (32-36); Mean Corpuscular Hemoglobin 28.8 pg (26-34); Mean Corpuscular Volume 83.9 fl (80-100); Mean Platelet Volume 9.3 fl (7.4-10.4); Platelet Count Result 192 k/mm3 (150-375); Red Blood Count 3.16 M/mm3 (4.6-6.20); White Blood Count 13.3 K/mm3 (4.5-10.0)
[2022-02-28 05:34] LABS: Alanine Aminotransferase 7 U/L (6-50); Albumin Level 2.8 g/dL (3.5-5.1); Alkaline Phosphatase 85 U/L (38-126); Anion Gap 4 mmol/L (8-16); Aspartate Amino Transferase 21 U/L (17-59); Bilirubin,Total 0.1 mg/dL (0.2-1.3); Blood Urea Nitrogen 19 mg/dL (9-20); Carbon Dioxide 25 mmol/L (22-30); Chloride 106 mmol/L (98-107); Estimated CRCL calculation 53 ml/min; Estimated Glomerular Filt Rate > 60; Glucose 193 mg/dL (65-110); Magnesium 1.4 mg/dL (1.6-2.3); Potassium 3.2 mmol/L (3.4-5.0); Sodium 135 mmol/L (137-145)
[2022-02-28 07:51] LABS: Glucose Point of Care 235 mg/dl (65-105)
[2022-02-28] MEDS: FLUDROCORTISONE ACETATE 0.1 MG TABLET PO (08:09)
[2022-02-28] MEDS: LIPASE/AMYLASE/PROTEASE 12,000 UNITS CAP 2 CAP PO ×3 (08:09→16:44)
[2022-02-28] MEDS: FERROUS SULFATE 324 MG TABLET PO ×3 (08:09→16:43)
[2022-02-28] MEDS: cefTRIAXone 2 GM in SODIUM CHLORIDE 0.9% IV 100 ML 200 ML IVPB (08:11)
[2022-02-28] MEDS: MIDODRINE HCL 10 MG TABLET BY MOUTH ×3 (08:12→16:43)
[2022-02-28] MEDS: FOLIC ACID 1 MG TABLET BY MOUTH (08:12)
[2022-02-28] MEDS: DULoxetine HCL 20 MG CAPSULE.DR PO (08:12)
[2022-02-28] MEDS: PREGABALIN (*CRX) 75 MG CAPSULE PO ×2 (08:12→20:29)
[2022-02-28] MEDS: ENOXAPARIN 30 MG/0.3 ML SYRINGE SUB-Q (08:12)
[2022-02-28] MEDS: THIAMINE HCL 100 MG TABLET BY MOUTH (08:12)
[2022-02-28] MEDS: ZINC SULFATE 220 MG CAPSULE PO (08:12)
[2022-02-28] MEDS: CHOLECALCIFEROL 1,000 UNITS TABLET 1000 UNITS BY MOUTH (08:12)
[2022-02-28] MEDS: TAMSULOSIN HCL 0.4 MG CAPSULE PO (08:12)
[2022-02-28] MEDS: INSULIN GLARGINE (*BKC) 100 UNITS/ML 15 UNITS SUB-Q (08:12)
[2022-02-28] MEDS: POTASSIUM CHLORIDE INJ 40 MEQ in SODIUM CHLORIDE 0.9% IV 500 ML 130 MEQ IVPB (10:59)
[2022-02-28 12:02] LABS: Glucose Point of Care 351 mg/dl (65-105)
--- NOTE | 2022-02-28 13:13 | PC.NURSE ---
called pharmacy to let him know that I needed his 1400 IV steroid. Will give when received from them
--- NOTE | 2022-02-28 14:02 | WPDGIPROGNO ---
Progress Note: A&P Assessment and Plan (1) Chronic diarrhea: Code(s): K52.9 - Noninfective gastroenteritis and colitis, unspecified Status: Acute Assessment and Plan: chronic and secondary from pancreatic insufficiency (confirmed by imaging and also abnormal pancreatic elastase in stool) continue with creon and imodium he has good appetite, add protein shakes I can also do a colonoscopy as outpatient with random bx (he says that last one over 10 years) (2) Pancreatic insufficiency: Code(s): K86.89 - Other specified diseases of pancreas Status: Acute Assessment and Plan: on creon chronic (3) Bacteremia due to Klebsiella pneumoniae: Code(s): R78.81 - Bacteremia; B96.1 - Klebsiella pneumoniae [K. pneumoniae] as the cause of diseases classified elsewhere Status: Acute Assessment and Plan: on antibiotic overall improved (4) Insulin dependent type 2 diabetes mellitus: Code(s): E11.9 - Type 2 diabetes mellitus without complications; Z79.4 - alf (current) use of insulin Status: Acute (5) Septic shock: Code(s): A41.9 - Sepsis, unspecified organism; R65.21 - Severe sepsis with septic shock Status: Acute Assessment and Plan: resolved Subjective Date/time seen: 02/28/22 14:02 Interval history: moved to regular floor, eating ok, still with post-prandial diarrhea but says that near his baseline Review of Systems Review of Systems: All systems reviewed & are unremarkable except as noted in HPI and below (Subjective) Exam Const: General: comfortable Other: cachectic HENMT: General nose exam: Normal nares present Eyes: General: appearance normal, both eyes and all related structures Neck: Neck: supple Resp: Auscultation: clear to auscultation bilaterally Cardio: Rate: regular rate GI: GI Palp: Yes Soft to palpation, No Firmness to palpation present (GI), No Tenderness to palpation present (GI) and No Guarding due to palpation present (GI) Auscultation: normal bowel sounds Urinary Catheter: Urinary Catheter: patent and draining Skin: General skin exam: normal color Neuro: Other: awake and alert now Extrem: General: normal to inspection Psych: Mental Status: mental status grossly normal Objective Data Vital Signs Vital Signs: Vital Signs - 24 hr 02/27/22 14:55 02/27/22 15:16 02/27/22 15:35 Temperature 97.5 F L Pulse Rate 64 Respiratory Rate 15 Blood Pressure 99/71 L 108/73 102/72 Pulse Oximetry 96 Oxygen Delivery 02/27/22 18:30 02/27/22 20:00 02/27/22 20:00 Temperature 97.2 F L Pulse Rate 56 L 45 L 45 L Respiratory Rate 16 16 Blood Pressure 123/72 Pulse Oximetry 100 100 Oxygen Delivery Room Air 02/27/22 22:00 02/28/22 00:00 02/28/22 02:00 Temperature 97.3 F L 97.8 F Pulse Rate 52 L 47 L 52 L Respiratory Rate 21 H 20 Blood Pressure 129/78 102/59 L Pulse Oximetry 100 99 Oxygen Delivery 02/28/22 04:00 02/28/22 06:00 02/28/22 08:00 Temperature 97.8 F Pulse Rate 51 L 53 L 64 Respiratory Rate 20 Blood Pressure 100/57 L Pulse Oximetry 99 Oxygen Delivery 02/28/22 08:15 02/28/22 11:14 02/28/22 12:00 Temperature 97.0 F L Pulse Rate 60 53 L Respiratory Rate 16 Blood Pressure 104/71 Pulse Oximetry 100 Oxygen Delivery Room Air Intake/Output Intake/Output: Intake & Output 02/25/22 02/26/22 02/27/22 02/28/22 23:59 23:59 23:59 23:59 Intake Total 6290.0 1570 3390 1550 Output Total 2400 2025 1225 800 Balance 3890.0 -455 2165 750 Meds/Results Medications: Active Medications Generic Name Dose Route Start Last Admin Trade Name Michael PRN Reason Stop Dose Admin Acetaminophen 650 mg 02/25/22 00:54 Acetaminophen 325 Mg Tablet PO Q4H PRN Mild Pain (1-3) or Fever Lipase/Protease/Amylase 2 cap 02/25/22 08:00 02/28/22 12:45 Lipase/Amylase/Protease 12,000 Units Cap PO 2 cap TIDWM CINDY Administration
--- NOTE | 2022-02-28 14:58 | PM.IMPN ---
Progress Note: A&P Assessment and Plan (1) Septic shock: Code(s): A41.9 - Sepsis, unspecified organism; R65.21 - Severe sepsis with septic shock Status: Acute Assessment and Plan: Admitted 02/24/22 presented to [place] ED found to be hypotensive and bradycardic. Had a leukocytosis 18.4 w/ lactic acid of 2.4 Was given vancomycin and ceftriaxone. Was given atropine x2 and 3L IVF. After transfer to [place], UA concerning for UTI. Norepinephrine was required to maintain blood pressure. CT also showed bilateral infiltrates, so there was concern for pneumonia. UCX had no bacterial growth but grew candidia galbrata. 09/07 blood cultures from 02/24 grew klebsiella pneumoniae sensitive to ceftriaxone. Urine pneumococcal negative. Urine legionella still pending. Cortisol level 12.1. Hydrocortisone started 02/26/22 and midodrine & flurdcortisone was started 02/25/22. -Decrease hydrocortisone to BID -Continue midodrine 10 mg TID and fludrocortisone 0.1 -Continue azithromycin and ceftriaxone (03/01 & 03/03 completion) -Ceftriaxone for bacteremia w/ klebsiella to complete on 03/05 -Resent blood cultures this morning (2) Urinary tract infection: Code(s): N39.0 - Urinary tract infection, site not specified Status: Acute Assessment and Plan: Urine cultures had no bacteria. Grew ramior glabrata. Fungus growing in urine is not routinely treated and will not start treatment as patient has clinically improved without treatment. (3) Pneumonia: Code(s): J18.9 - Pneumonia, unspecified organism Status: Acute Assessment and Plan: Patient does have a hx of ETOH abuse. No evidence of aspiration currently but will complete treatment as patient is improving. -Continue azithromycin and ceftriaxone (03/01 & 03/03 completion) (4) Hypoglycemia: Code(s): E16.2 - Hypoglycemia, unspecified Status: Acute Assessment and Plan: Brittle diabetes with frequent episodes of hypoglycemia and hyperglycemia at baseline. Will try to avoid hypoglycemia. (5) Insulin dependent type 2 diabetes mellitus: Code(s): E11.9 - Type 2 diabetes mellitus without complications; Z79.4 - residential (current) use of insulin Status: Acute Assessment and Plan: BG > 500 for most of the day yesterday. Gave 10 on aspart and 10 of regular insulin. -Glargine 15 units qam -High dose correction (6) Acute renal failure: Qualifiers: Acute renal failure type: with acute tubular necrosis Qualified Code(s): N17.0 - Acute kidney failure with tubular necrosis Code(s): N17.9 - Acute kidney failure, unspecified Status: Acute Assessment and Plan: Found down and had been down for approximately 2 days prior to EMS being called by his home health aid, so likely some dehydration fom poor oral intake. Also from sepsis. No hydronephrosis on CT. Creatinine now at baseline. Will monitor. (7) Pancreatic insufficiency: Code(s): K86.89 - Other specified diseases of pancreas Status: Acute Assessment and Plan: Chornic. Continue Creon. (8) Protein calorie malnutrition: Qualifiers: Protein-calorie malnutrition severity: severe Qualified Code(s): E43 - Unspecified severe protein-calorie malnutrition Code(s): E46 - Unspecified protein-calorie malnutrition Status: Acute Assessment and Plan: Regular diet pancreatic enzyme supplementation and multivitamin. (9) Electrolyte abnormality: Code(s): E87.8 - Other disorders of electrolyte and fluid balance, not elsewhere classified Status: Acute Assessment and Plan: Hypokalemia this morning. Gave (10) Decubitus ulcer: Code(s): L89.90 - Pressure ulcer of unspecified site, unspecified stage Status: Acute Assessment and Plan: Chronic without signs of infection. Wound care nursing made recommendations. (11) BPH (benign prostatic hyperplasia):
[2022-02-28 16:30] LABS: Glucose Point of Care 301 mg/dl (65-105)
[2022-02-28] MEDS: LACTATED RINGERS 1,000 ML 50 ML IV CONT (16:43)
[2022-02-28 16:55] LABS: Potassium 3.4 mmol/L (3.4-5.0)
[2022-02-28 23:49] LABS: Glucose Point of Care 261 mg/dl (65-105)
[2022-02-28 23:49] LABS: Glucose Point of Care 258 mg/dl (65-105)
[2022-03-01] VITALS (12 sets, daily range): BP systolic 101–121; BP diastolic 57–70; PULSE 46–71; RESP 16–21; TEMP 36.3–36.9; O2SAT 94–100
[2022-03-01] MEDS: CENTRAL LINE FLUSH 20 ML IV PUSH (04:29)
[2022-03-01 04:37] LABS: Hemoglobin 9.3 g/dL (14.0-18.0); Mean Corpuscular HGB Conc 33.2 g/dl (32-36); Mean Corpuscular Hemoglobin 28.1 pg (26-34); Mean Corpuscular Volume 84.6 fl (80-100); Mean Platelet Volume 9.1 fl (7.4-10.4); Platelet Count Result 166 k/mm3 (150-375); Red Blood Count 3.31 M/mm3 (4.6-6.20); Red Cell Distribution Width 13.1 % (11.5-14.5); White Blood Count 11.4 K/mm3 (4.5-10.0)
[2022-03-01 04:43] LABS: Alanine Aminotransferase 7 U/L (6-50); Albumin Level 2.5 g/dL (3.5-5.1); Alkaline Phosphatase 81 U/L (38-126); Anion Gap 3 mmol/L (8-16); Aspartate Amino Transferase 13 U/L (17-59); Bilirubin,Total < 0.1 mg/dL (0.2-1.3); Blood Urea Nitrogen 20 mg/dL (9-20); Calcium 7.7 mg/dL (8.4-10.2); Carbon Dioxide 24 mmol/L (22-30); Chloride 107 mmol/L (98-107); Estimated CRCL calculation 73 ml/min; Estimated Glomerular Filt Rate > 60; Glucose 310 mg/dL (65-110); Magnesium 1.3 mg/dL (1.6-2.3); Potassium 3.4 mmol/L (3.4-5.0); Sodium 134 mmol/L (137-145)
[2022-03-01 05:13] LABS: Glucose Point of Care 164 mg/dl (65-105)
[2022-03-01] MEDS: LEVOTHYROXINE SODIUM 75 MCG TABLET PO (05:38)
[2022-03-01] MEDS: CENTRAL LINE FLUSH 10 ML IV PUSH ×3 (05:39→20:11)
--- NOTE | 2022-03-01 07:31 | PM.IMPN ---
Progress Note: A&P Assessment and Plan (1) Septic shock: Code(s): A41.9 - Sepsis, unspecified organism; R65.21 - Severe sepsis with septic shock Status: Acute Assessment and Plan: Admitted 02/24/22 presented to [place] ED found to be hypotensive and bradycardic. Had a leukocytosis 18.4 w/ lactic acid of 2.4 Was given vancomycin and ceftriaxone. Was given atropine x2 and 3L IVF. After transfer to [place], UA concerning for UTI. Norepinephrine was required to maintain blood pressure. CT also showed bilateral infiltrates, so there was concern for pneumonia. UCX had no bacterial growth but grew candidia galbrata. 09/07 blood cultures from 02/24 grew klebsiella pneumoniae sensitive to ceftriaxone. Urine pneumococcal negative. Urine legionella still pending. Cortisol level 12.1. Hydrocortisone started 02/26/22 and midodrine & fludrocortisone was started 02/25/22. Repeat BCX -Decrease hydrocortisone to BID to time out tonight and will give one dose tomorrow -Continue midodrine 10 mg TID and fludrocortisone 0.1 -Continue azithromycin and ceftriaxone (03/01 & 03/03 completion) -Ceftriaxone for bacteremia w/ klebsiella to complete on 03/05 -Resent blood cultures this morning (2) Urinary tract infection: Code(s): N39.0 - Urinary tract infection, site not specified Status: Acute Assessment and Plan: Urine cultures had no bacteria. Grew ramiro glabrata. Fungus growing in urine is not routinely treated and will not start treatment as patient has clinically improved without treatment. (3) Pneumonia: Code(s): J18.9 - Pneumonia, unspecified organism Status: Acute Assessment and Plan: Patient does have a hx of ETOH abuse. No evidence of aspiration currently but will complete treatment as patient is improving. -Continue azithromycin and ceftriaxone (03/01 & 03/03 completion) (4) Hypoglycemia: Code(s): E16.2 - Hypoglycemia, unspecified Status: Acute Assessment and Plan: Brittle diabetes with frequent episodes of hypoglycemia and hyperglycemia at baseline. Will try to avoid hypoglycemia. (5) Insulin dependent type 2 diabetes mellitus: Code(s): E11.9 - Type 2 diabetes mellitus without complications; Z79.4 - halfway (current) use of insulin Status: Acute Assessment and Plan: BG > 500 for most of the day yesterday. Gave 10 on aspart and 10 of regular insulin. -Glargine 15 units qam -High dose correction (6) Acute renal failure: Qualifiers: Acute renal failure type: with acute tubular necrosis Qualified Code(s): N17.0 - Acute kidney failure with tubular necrosis Code(s): N17.9 - Acute kidney failure, unspecified Status: Acute Assessment and Plan: Found down and had been down for approximately 2 days prior to EMS being called by his home health aid, so likely some dehydration fom poor oral intake. Also from sepsis. No hydronephrosis on CT. Creatinine now at baseline. Will monitor. (7) Pancreatic insufficiency: Code(s): K86.89 - Other specified diseases of pancreas Status: Acute Assessment and Plan: Chornic. Continue Creon. (8) Protein calorie malnutrition: Qualifiers: Protein-calorie malnutrition severity: severe Qualified Code(s): E43 - Unspecified severe protein-calorie malnutrition Code(s): E46 - Unspecified protein-calorie malnutrition Status: Acute Assessment and Plan: Regular diet pancreatic enzyme supplementation and multivitamin. -Ordered double portion from nutrition (9) Electrolyte abnormality: Code(s): E87.8 - Other disorders of electrolyte and fluid balance, not elsewhere classified Status: Acute Assessment and Plan: Hypokalemia resolved. (10) Decubitus ulcer: Code(s): L89.90 - Pressure ulcer of unspecified site, unspecified stage Status: Acute Assessment and Plan: Chronic without signs of infect
[2022-03-01 07:52] LABS: Glucose Point of Care 342 mg/dl (65-105)
[2022-03-01] MEDS: POTASSIUM CHLORIDE 20 MEQ TABLET 40 MEQ PO (08:00)
[2022-03-01] MEDS: FERROUS SULFATE 324 MG TABLET PO ×3 (08:00→16:08)
[2022-03-01] MEDS: THIAMINE HCL 100 MG TABLET BY MOUTH (08:00)
[2022-03-01] MEDS: LIPASE/AMYLASE/PROTEASE 12,000 UNITS CAP 2 CAP PO ×3 (08:00→16:08)
[2022-03-01] MEDS: FOLIC ACID 1 MG TABLET BY MOUTH (08:00)
[2022-03-01] MEDS: FLUDROCORTISONE ACETATE 0.1 MG TABLET PO (08:00)
[2022-03-01] MEDS: ZINC SULFATE 220 MG CAPSULE PO (08:00)
[2022-03-01] MEDS: CHOLECALCIFEROL 1,000 UNITS TABLET 1000 UNITS BY MOUTH (08:00)
[2022-03-01] MEDS: PREGABALIN (*CRX) 75 MG CAPSULE PO ×3 (08:01→20:11)
[2022-03-01] MEDS: TAMSULOSIN HCL 0.4 MG CAPSULE PO (08:01)
[2022-03-01] MEDS: MIDODRINE HCL 10 MG TABLET BY MOUTH ×3 (08:01→16:07)
[2022-03-01] MEDS: DULoxetine HCL 20 MG CAPSULE.DR PO (08:01)
[2022-03-01] MEDS: ENOXAPARIN 30 MG/0.3 ML SYRINGE SUB-Q (08:03)
[2022-03-01] MEDS: cefTRIAXone 2 GM in SODIUM CHLORIDE 0.9% IV 100 ML 200 ML IVPB (08:03)
[2022-03-01] MEDS: HYDROCORTISONE SODIUM SUCCINATE 100 MG/2 ML VIAL IV PUSH ×2 (08:04→20:11)
[2022-03-01] MEDS: INSULIN ASPART (*BKC) 100 UNITS/ML SUB-Q ×3 (08:04→16:32)
[2022-03-01] MEDS: INSULIN GLARGINE (*BKC) 100 UNITS/ML 15 UNITS SUB-Q (08:04)
[2022-03-01 12:03] LABS: Glucose Point of Care 287 mg/dl (65-105)
--- NOTE | 2022-03-01 13:20 | WPDGIPROGNO ---
Progress Note: A&P Assessment and Plan (1) Chronic diarrhea: Code(s): K52.9 - Noninfective gastroenteritis and colitis, unspecified Status: Acute Assessment and Plan: chronic and secondary from pancreatic insufficiency (confirmed by imaging and also abnormal pancreatic elastase in stool) continue with creon and imodium he has good appetite also taking protein shakes will get colonoscopy as outpatient with random bx (he says that last one over 10 years) will sign off (2) Pancreatic insufficiency: Code(s): K86.89 - Other specified diseases of pancreas Status: Acute Assessment and Plan: on creon chronic (3) Bacteremia due to Klebsiella pneumoniae: Code(s): R78.81 - Bacteremia; B96.1 - Klebsiella pneumoniae [K. pneumoniae] as the cause of diseases classified elsewhere Status: Acute Assessment and Plan: on antibiotic overall improved (4) Insulin dependent type 2 diabetes mellitus: Code(s): E11.9 - Type 2 diabetes mellitus without complications; Z79.4 - snf (current) use of insulin Status: Acute (5) Septic shock: Code(s): A41.9 - Sepsis, unspecified organism; R65.21 - Severe sepsis with septic shock Status: Acute Assessment and Plan: resolved Subjective Date/time seen: 03/01/22 13:20 Interval history: no changes, same diarrhea after eating Review of Systems Review of Systems: All systems reviewed & are unremarkable except as noted in HPI and below (Subjective) Exam Const: General: comfortable Other: thin, no distress HENMT: General nose exam: Normal nares present Eyes: General: appearance normal, both eyes and all related structures Neck: Neck: supple Resp: Auscultation: clear to auscultation bilaterally Cardio: Rate: regular rate GI: GI Palp: Yes Soft to palpation, No Firmness to palpation present (GI), No Tenderness to palpation present (GI) and No Guarding due to palpation present (GI) Auscultation: normal bowel sounds Urinary Catheter: Urinary Catheter: patent and draining Skin: General skin exam: normal color Neuro: Other: awake and alert now Extrem: General: normal to inspection Psych: Mental Status: mental status grossly normal Objective Data Vital Signs Vital Signs: Vital Signs - 24 hr 02/28/22 14:24 02/28/22 16:00 02/28/22 18:37 Temperature 97.0 F L 97.4 F L Pulse Rate 50 L 55 L 53 L Respiratory Rate 16 16 Blood Pressure 114/70 101/57 L Pulse Oximetry 100 100 Oxygen Delivery 02/28/22 20:00 02/28/22 22:00 03/01/22 00:00 Temperature 97.1 F L Pulse Rate 54 L 54 L 71 Respiratory Rate 20 Blood Pressure 118/64 Pulse Oximetry 98 Oxygen Delivery 03/01/22 02:30 03/01/22 04:00 03/01/22 06:00 Temperature 97.4 F L 97.7 F Pulse Rate 62 51 L 51 L Respiratory Rate 21 H 20 Blood Pressure 117/68 101/57 L Pulse Oximetry 100 98 Oxygen Delivery 03/01/22 08:00 03/01/22 11:03 Temperature 97.8 F Pulse Rate 50 L Respiratory Rate 16 Blood Pressure 119/65 Pulse Oximetry 100 Oxygen Delivery Room Air Intake/Output Intake/Output: Intake & Output 02/26/22 02/27/22 02/28/22 03/01/22 23:59 23:59 23:59 23:59 Intake Total 1570 3390 3890 980 Output Total 2025 1225 1450 800 Balance -455 2165 2440 180 Meds/Results Medications: Active Medications Generic Name Dose Route Start Last Admin Trade Name Freq PRN Reason Stop Dose Admin Acetaminophen 650 mg 02/25/22 00:54 Acetaminophen 325 Mg Tablet PO Q4H PRN Mild Pain (1-3) or Fever Lipase/Protease/Amylase 2 cap 02/25/22 08:00 03/01/22 12:09 Lipase/Amylase/Protease 12,000 Units Cap PO 2 cap TIDWM CINDY Administration Dextrose 12.5 gm 02/25/22 02:22 02/26/22 00:22 Dextrose 50% 25 Gm/50 Ml Syringe IV PUSH 12.5 gm PRN PRN Administration Hypoglycemia Protocol Duloxetine HCl 20 mg 02/25/22 09:00 03/01/22 08:01 Duloxetine Hcl 20 Mg Capsule.Dr Resendiz
[2022-03-01 16:30] LABS: Glucose Point of Care 309 mg/dl (65-105)
[2022-03-01 21:04] LABS: Glucose Point of Care 283 mg/dl (65-105)
[2022-03-02] VITALS (12 sets, daily range): BP systolic 94–146; BP diastolic 60–99; PULSE 39–75; RESP 14–20; TEMP 36.3–36.8; O2SAT 94–100
[2022-03-02 01:12] LABS: Glucose Point of Care 315 mg/dl (65-105)
[2022-03-02 04:18] LABS: Glucose Point of Care 355 mg/dl (65-105)
[2022-03-02 05:16] LABS: Basophils Percent Auto 0.2 % (0.2-1.2); Hematocrit 26.4 % (42.0-52.0); Immature Granulocyte Absolute 0.36 K/mm3 (0.00-0.031); Immature Granulocyte Percent A 3.4 % (0-0.5); Lymphocytes Absolute Auto 1.63 K/mm3 (0.9-3.2); Lymphocytes Percent Auto 15.3 % (18.3-44.2); Mean Corpuscular HGB Conc 34.1 g/dl (32-36); Mean Corpuscular Hemoglobin 28.7 pg (26-34); Mean Corpuscular Volume 84.1 fl (80-100); Monocytes Absolute Auto 0.4 K/mm3 (0.1-0.6); Monocytes Percent Auto 3.5 % (2.6-8.5); Neutrophils Absolute Auto 8.2 K/mm3 (1.3-6.7); Neutrophils Percent Auto 77.6 % (45.5-73.1); Platelet Count Result 138 k/mm3 (150-375); Red Blood Count 3.14 M/mm3 (4.6-6.20); Red Cell Distribution Width 13.2 % (11.5-14.5); White Blood Count 10.6 K/mm3 (4.5-10.0)
[2022-03-02] MEDS: CENTRAL LINE FLUSH 10 ML IV PUSH ×3 (05:19→20:21)
[2022-03-02] MEDS: CENTRAL LINE FLUSH 20 ML IV PUSH (05:19)
[2022-03-02 05:31] LABS: Alanine Aminotransferase 8 U/L (6-50); Albumin Level 2.4 g/dL (3.5-5.1); Alkaline Phosphatase 75 U/L (38-126); Anion Gap 4 mmol/L (8-16); Aspartate Amino Transferase 17 U/L (17-59); Bilirubin,Total < 0.1 mg/dL (0.2-1.3); Blood Urea Nitrogen 19 mg/dL (9-20); Calcium 7.4 mg/dL (8.4-10.2); Carbon Dioxide 24 mmol/L (22-30); Chloride 106 mmol/L (98-107); Estimated CRCL calculation 75 ml/min; Estimated Glomerular Filt Rate > 60; Glucose 346 mg/dL (65-110); Magnesium 1.3 mg/dL (1.6-2.3); Potassium 2.8 mmol/L (3.4-5.0); Sodium 134 mmol/L (137-145)
[2022-03-02] MEDS: KCL 40 MEQ/WATER 100 ML 100 ML 25 ML IVPB (06:07)
[2022-03-02] MEDS: LEVOTHYROXINE SODIUM 75 MCG TABLET PO (06:13)
[2022-03-02 07:37] LABS: Glucose Point of Care 314 mg/dl (65-105)
[2022-03-02] MEDS: INSULIN ASPART (*BKC) 100 UNITS/ML SUB-Q ×6 (08:23→17:00)
[2022-03-02] MEDS: INSULIN GLARGINE (*BKC) 100 UNITS/ML 17 UNITS SUB-Q (08:24)
[2022-03-02] MEDS: LIPASE/AMYLASE/PROTEASE 12,000 UNITS CAP 2 CAP PO ×3 (08:29→17:01)
[2022-03-02] MEDS: FERROUS SULFATE 324 MG TABLET PO ×3 (08:29→17:00)
[2022-03-02] MEDS: MAGNESIUM SULF 2 GM/WATER 50ML 2 GM/50 ML BAG IVPB (08:29)
[2022-03-02] MEDS: FLUDROCORTISONE ACETATE 0.1 MG TABLET PO (08:29)
[2022-03-02] MEDS: ENOXAPARIN 30 MG/0.3 ML SYRINGE SUB-Q (08:30)
[2022-03-02] MEDS: DULoxetine HCL 20 MG CAPSULE.DR PO (08:30)
[2022-03-02] MEDS: CHOLECALCIFEROL 1,000 UNITS TABLET 1000 UNITS BY MOUTH (08:30)
[2022-03-02] MEDS: POTASSIUM CHLORIDE 20 MEQ TABLET 40 MEQ PO (08:30)
[2022-03-02] MEDS: MIDODRINE HCL 10 MG TABLET BY MOUTH ×3 (08:31→17:01)
[2022-03-02] MEDS: ZINC SULFATE 220 MG CAPSULE PO (08:31)
[2022-03-02] MEDS: TAMSULOSIN HCL 0.4 MG CAPSULE PO (08:31)
[2022-03-02] MEDS: HYDROCORTISONE SODIUM SUCCINATE 100 MG/2 ML VIAL IV PUSH (08:31)
[2022-03-02] MEDS: THIAMINE HCL 100 MG TABLET BY MOUTH (08:31)
[2022-03-02] MEDS: PREGABALIN (*CRX) 75 MG CAPSULE PO ×2 (08:31→10:06)
[2022-03-02] MEDS: FOLIC ACID 1 MG TABLET BY MOUTH (08:31)
[2022-03-02] MEDS: cefTRIAXone 2 GM in SODIUM CHLORIDE 0.9% IV 100 ML IVPB (09:54)
--- NOTE | 2022-03-02 09:59 | PM.IMPN ---
Progress Note: A&P Assessment and Plan (1) Septic shock: Code(s): A41.9 - Sepsis, unspecified organism; R65.21 - Severe sepsis with septic shock Status: Acute Assessment and Plan: Admitted 02/24/22 presented to [place] ED found to be hypotensive and bradycardic. Had a leukocytosis 18.4 w/ lactic acid of 2.4 [facility] Was given atropine x2 and 3L IVF, as well. Sepsis likely secondary to pneumonia #2. Urine pneumococcal negative. Urine legionella still pending. Given culture results #3. 1 of 2 blood cultures from 02/24 grew klebsiella pneumoniae sensitive to ceftriaxone. -Norepinephrine gtt was required to maintain blood pressure, intially. DC'd 02/27. -Cortisol level 12.1. Hydrocortisone started 02/26/22 and midodrine & fludrocortisone was started 02/25/22. Wean hydrocortisone to daily and stop after 03/03 dose. -Continue midodrine 10 mg TID and fludrocortisone 0.1 mg daily at home doses. -Complete azithromycin 03/02 -Ceftriaxone 2 grams IV Q24 hours x 7 days for pneumonia & bacteremia, stop after 03/04 dose. -02/28 repeat blood cultures without growth to date. (2) Pneumonia: Code(s): J18.9 - Pneumonia, unspecified organism Status: Acute Assessment and Plan: CT also showed bilateral infiltrates, so there was concern for pneumonia. Patient with hx of ETOH abuse. No evidence of aspiration. Stable spO2 on room air without c/o respiratory symptoms. -Resolved. Completed 7 days Rocephin & azithromycin. (3) Bacteremia due to Klebsiella pneumoniae: Code(s): R78.81 - Bacteremia; B96.1 - Klebsiella pneumoniae [K. pneumoniae] as the cause of diseases classified elsewhere Status: Acute Assessment and Plan: As above, per #1. (4) Urinary tract infection: Code(s): N39.0 - Urinary tract infection, site not specified Status: Acute Assessment and Plan: Urine cultures had no bacteria, but grew ramiro glabrata. Fungus growing in urine is not routinely treated and antifungal treatment held as patient has clinically improved without treatment. (5) Electrolyte abnormality: Code(s): E87.8 - Other disorders of electrolyte and fluid balance, not elsewhere classified Status: Acute Assessment and Plan: K 2.8. Mag 1.3. Likely secondary to chronic diarrhea. -Given 40 mEQ KCl IVPB x1. Give additional 40 mEQ PO x1 today and then start daily. -Give magnesium sulfate 2 grams IVPB x1. Will try to encourage magnesium-rich foods as magnesium supplements may worsen diarrhea. -Repeat BMP & Mag levels tomorrow and replace as needed. (6) Hypoglycemia: Code(s): E16.2 - Hypoglycemia, unspecified Status: Acute Assessment and Plan: Brittle diabetes with frequent episodes of hypoglycemia. Now with hyperglycemia. -Will try to avoid hypoglycemia -Continue hypoglycemia protocol. (7) Insulin dependent type 2 diabetes mellitus: Code(s): E11.9 - Type 2 diabetes mellitus without complications; Z79.4 - watermaster (current) use of insulin Status: Acute Assessment and Plan: BG 280 to >300 in the past 24 hours. No hypoglycemia episodes. A1c this admission 13.7%. He reports feeling unwell with blood sugars are <140 and likes to keep [his] sugars 250-400. -Increase lantus 17 units daily. -Aspart 5 units with meals pluse high dose correction. -Will gradually titrate insulin to slowly decrease glucose levels to <200 mg/dL. -Glucose goals discussed with the patient, as well as risks of hyperglycemia. (8) Acute renal failure: Qualifiers: Acute renal failure type: with acute tubular necrosis Qualified Code(s): N17.0 - Acute kidney failure with tubular necrosis Code(s): N17.9 - Acute kidney failure, unspecified Status: Acute Assessment and Plan: Found down and had been down for approximately 2 days prior to EMS being called by his h
[2022-03-02 11:12] LABS: Glucose Point of Care 298 mg/dl (65-105)
--- NOTE | 2022-03-02 11:16 | PCPTNOTE ---
Patient refused treatment this session due to patient wanting to work on stuff with his laptop.
[2022-03-02 16:25] LABS: Glucose Point of Care 373 mg/dl (65-105)
--- NOTE | 2022-03-02 16:38 | PC.NURSE ---
Ivania Tanner [employer] notified of pt have frequent stools today. Has had a total of 8 incontinent large stools.
[2022-03-02] MEDS: LOPERAMIDE HCL 2 MG CAPSULE PO (16:59)
[2022-03-02 19:34] LABS: Legionella pneumophila Ag Ur Not Detected (Not Detected)
[2022-03-02] MEDS: PREGABALIN (*CRX) 75 MG CAPSULE 150 MG PO (20:20)
[2022-03-02 20:24] LABS: Glucose Point of Care 259 mg/dl (65-105)
[2022-03-03] VITALS (12 sets, daily range): BP systolic 102–118; BP diastolic 56–68; PULSE 39–68; RESP 14–18; TEMP 36.4–37; O2SAT 95–100
[2022-03-03 00:31] LABS: Glucose Point of Care 141 mg/dl (65-105)
[2022-03-03] MEDS: LOPERAMIDE HCL 2 MG CAPSULE PO ×3 (02:28→16:25)
[2022-03-03 04:39] LABS: Glucose Point of Care 298 mg/dl (65-105)
[2022-03-03 05:26] LABS: Hematocrit 26.1 % (42.0-52.0); Hemoglobin 8.8 g/dL (14.0-18.0); Mean Corpuscular HGB Conc 33.7 g/dl (32-36); Mean Corpuscular Hemoglobin 27.9 pg (26-34); Mean Corpuscular Volume 82.9 fl (80-100); Mean Platelet Volume 8.8 fl (7.4-10.4); Platelet Count Result 133 k/mm3 (150-375); Red Blood Count 3.15 M/mm3 (4.6-6.20); Red Cell Distribution Width 13.2 % (11.5-14.5); White Blood Count 12.3 K/mm3 (4.5-10.0)
[2022-03-03 05:37] LABS: Anion Gap 4 mmol/L (8-16); Blood Urea Nitrogen 19 mg/dL (9-20); Calcium 7.3 mg/dL (8.4-10.2); Carbon Dioxide 26 mmol/L (22-30); Chloride 108 mmol/L (98-107); Estimated CRCL calculation 92 ml/min; Estimated Glomerular Filt Rate > 60; Glucose 247 mg/dL (65-110); Magnesium 1.5 mg/dL (1.6-2.3); Potassium 2.5 mmol/L (3.4-5.0); Sodium 138 mmol/L (137-145)
[2022-03-03] MEDS: CENTRAL LINE FLUSH 20 ML IV PUSH ×2 (05:55→11:57)
[2022-03-03] MEDS: CENTRAL LINE FLUSH 10 ML IV PUSH ×2 (05:55→12:58)
[2022-03-03] MEDS: LEVOTHYROXINE SODIUM 75 MCG TABLET PO (05:55)
[2022-03-03] MEDS: POTASSIUM CHLORIDE 20 MEQ TABLET 80 MEQ PO (06:45)
[2022-03-03] MEDS: MAGNESIUM SULF 4 GM/WATER100ML 4 GM/100 ML BAG IVPB (06:45)
[2022-03-03 07:29] LABS: Glucose Point of Care 199 mg/dl (65-105)
[2022-03-03] MEDS: CHOLECALCIFEROL 1,000 UNITS TABLET 1000 UNITS BY MOUTH (08:13)
[2022-03-03] MEDS: POTASSIUM CHLORIDE 20 MEQ TABLET.ER 40 MEQ PO (08:14)
[2022-03-03] MEDS: MIDODRINE HCL 10 MG TABLET BY MOUTH ×3 (08:14→16:25)
[2022-03-03] MEDS: PREGABALIN (*CRX) 75 MG CAPSULE 150 MG PO (08:14)
[2022-03-03] MEDS: THIAMINE HCL 100 MG TABLET BY MOUTH (08:14)
[2022-03-03] MEDS: FLUDROCORTISONE ACETATE 0.1 MG TABLET PO (08:14)
[2022-03-03] MEDS: LIPASE/AMYLASE/PROTEASE 12,000 UNITS CAP 2 CAP PO ×3 (08:14→16:25)
[2022-03-03] MEDS: FOLIC ACID 1 MG TABLET BY MOUTH (08:14)
[2022-03-03] MEDS: HYDROCORTISONE SODIUM SUCCINATE 100 MG/2 ML VIAL IV PUSH (08:15)
[2022-03-03] MEDS: FERROUS SULFATE 324 MG TABLET PO ×3 (08:15→16:25)
[2022-03-03] MEDS: INSULIN ASPART (*BKC) 100 UNITS/ML SUB-Q ×4 (08:15→16:26)
[2022-03-03] MEDS: TAMSULOSIN HCL 0.4 MG CAPSULE PO (08:15)
[2022-03-03] MEDS: cefTRIAXone 2 GM in SODIUM CHLORIDE 0.9% IV 100 ML 200 ML IVPB (08:15)
[2022-03-03] MEDS: DULoxetine HCL 20 MG CAPSULE.DR PO (08:15)
[2022-03-03] MEDS: ZINC SULFATE 220 MG CAPSULE PO (08:15)
[2022-03-03] MEDS: ENOXAPARIN 30 MG/0.3 ML SYRINGE SUB-Q (08:15)
[2022-03-03] MEDS: INSULIN GLARGINE (*BKC) 100 UNITS/ML 17 UNITS SUB-Q (08:16)
[2022-03-03 11:24] LABS: Glucose Point of Care 194 mg/dl (65-105)
--- NOTE | 2022-03-03 12:06 | PM.IMPN ---
Progress Note: A&P Assessment and Plan (1) Septic shock: Code(s): A41.9 - Sepsis, unspecified organism; R65.21 - Severe sepsis with septic shock Status: Acute Assessment and Plan: Admitted 02/24/22 presented to [place] ED found to be hypotensive and bradycardic. Had a leukocytosis 18.4 w/ lactic acid of 2.4 Was given vancomycin and [facility]axone at [facility]. Was given atropine x2 and 3L IVF, as well. Sepsis likely secondary to pneumonia #2. Urine pneumococcal negative. Urine legionella still pending. Given culture results #3. 1 of 2 blood cultures from 02/24 grew klebsiella pneumoniae sensitive to ceftriaxone. -Norepinephrine gtt was required to maintain blood pressure, intially. DC'd 02/27. -Cortisol level 12.1. Hydrocortisone started 02/26/22 and midodrine & fludrocortisone was started 02/25/22. Hydrocortisone stopped 03/03. -Continue midodrine 10 mg TID and fludrocortisone 0.1 mg daily at home doses. -Complete azithromycin 03/02 -Ceftriaxone 2 grams IV Q24 hours x 7 days for pneumonia & bacteremia, stop after 03/04 dose. -02/28 repeat blood cultures without growth to date. -Improving. (2) Pneumonia: Code(s): J18.9 - Pneumonia, unspecified organism Status: Acute Assessment and Plan: CT also showed bilateral infiltrates, so there was concern for pneumonia. Patient with hx of ETOH abuse. No evidence of aspiration. Stable spO2 on room air without c/o respiratory symptoms. -Resolved. Completed 7 days Rocephin & azithromycin. (3) Bacteremia due to Klebsiella pneumoniae: Code(s): R78.81 - Bacteremia; B96.1 - Klebsiella pneumoniae [K. pneumoniae] as the cause of diseases classified elsewhere Status: Acute Assessment and Plan: As above, per #1. Last dose IV Rocephin 2 grams on 03/04/22. (4) Urinary tract infection: Code(s): N39.0 - Urinary tract infection, site not specified Status: Acute Assessment and Plan: Urine cultures had no bacteria, but grew ramiro glabrata. Fungus growing in urine is not routinely treated and antifungal treatment held as patient has clinically improved without treatment. (5) Electrolyte abnormality: Code(s): E87.8 - Other disorders of electrolyte and fluid balance, not elsewhere classified Status: Acute Assessment and Plan: K 2.5. Mag 1.5. Likely secondary to chronic diarrhea. -Given 120 mEQ PO KCl this morning. Repeat K3.1 and given additional 40 mEQ PO x1. Daily potassium changed 40 mEQ PO BID. Patient will need supplements at discharge. -Give magnesium sulfate 4 grams IVPB x1. Oral magnesium may worsen chronic diarrhea. -Repeat BMP & Mag levels tomorrow and replace as needed. (6) Hypoglycemia: Code(s): E16.2 - Hypoglycemia, unspecified Status: Acute Assessment and Plan: Brittle diabetes with frequent episodes of hypoglycemia. Now with hyperglycemia. -Will try to avoid hypoglycemia -Continue hypoglycemia protocol. -Glucose 141-298 today. Improving. 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 No hypoglycemia episodes. A1c this admission 13.7%. He reports feeling unwell with blood sugars are <140 and likes to keep [his] sugars 250-400. -Lantus 17 units daily. -Aspart 5 units with meals plus high dose correction. -Will gradually titrate insulin to slowly decrease glucose levels to <200 mg/dL as patient tolerates. -Glucose goals discussed with the patient, as well as risks of hyperglycemia. (8) Acute renal failure: Qualifiers: Acute renal failure type: with acute tubular necrosis Qualified Code(s): N17.0 - Acute kidney failure with tubular necrosis Code(s): N17.9 - Acute kidney failure, unspecified Status: Acute
[2022-03-03 12:15] LABS: Potassium 3.1 mmol/L (3.4-5.0)
[2022-03-03] MEDS: POTASSIUM CHLORIDE 20 MEQ TABLET 40 MEQ PO (12:57)
[2022-03-03 16:21] LABS: Glucose Point of Care 259 mg/dl (65-105)
[2022-03-04] VITALS (10 sets, daily range): BP systolic 95–112; BP diastolic 58–66; PULSE 52–76; RESP 16–20; TEMP 36.3–36.6; O2SAT 92–99
[2022-03-04] MEDS: LOPERAMIDE HCL 2 MG CAPSULE PO ×4 (01:27→11:42)
[2022-03-04] MEDS: PREGABALIN (*CRX) 75 MG CAPSULE 150 MG PO ×2 (01:27→08:36)
[2022-03-04] MEDS: CENTRAL LINE FLUSH 10 ML IV PUSH ×2 (01:28→05:31)
[2022-03-04 02:18] LABS: Glucose Point of Care 265 mg/dl (65-105)
[2022-03-04] MEDS: LEVOTHYROXINE SODIUM 75 MCG TABLET PO (05:30)
[2022-03-04 05:43] LABS: Glucose Point of Care 188 mg/dl (65-105)
[2022-03-04 05:47] LABS: Hematocrit 24.8 % (42.0-52.0); Hemoglobin 8.2 g/dL (14.0-18.0); Mean Corpuscular HGB Conc 33.1 g/dl (32-36); Mean Corpuscular Volume 84.6 fl (80-100); Mean Platelet Volume 9.4 fl (7.4-10.4); Platelet Count Result 117 k/mm3 (150-375); Red Blood Count 2.93 M/mm3 (4.6-6.20); Red Cell Distribution Width 13.2 % (11.5-14.5); White Blood Count 13.3 K/mm3 (4.5-10.0)
[2022-03-04 05:59] LABS: Anion Gap 3 mmol/L (8-16); Blood Urea Nitrogen 19 mg/dL (9-20); Calcium 7.1 mg/dL (8.4-10.2); Carbon Dioxide 26 mmol/L (22-30); Chloride 108 mmol/L (98-107); Estimated CRCL calculation 92 ml/min; Estimated Glomerular Filt Rate > 60; Glucose 162 mg/dL (65-110); Magnesium 1.8 mg/dL (1.6-2.3); Sodium 137 mmol/L (137-145)
[2022-03-04 07:45] LABS: Glucose Point of Care 160 mg/dl (65-105)
[2022-03-04] MEDS: POTASSIUM CHLORIDE INJ 40 MEQ in SODIUM CHLORIDE 0.9% IV 500 ML 130 MEQ IVPB (08:10)
[2022-03-04] MEDS: CHOLECALCIFEROL 1,000 UNITS TABLET 1000 UNITS BY MOUTH (08:22)
[2022-03-04] MEDS: ENOXAPARIN 30 MG/0.3 ML SYRINGE SUB-Q (08:22)
[2022-03-04] MEDS: POTASSIUM CHLORIDE 20 MEQ TABLET.ER 40 MEQ PO (08:22)
[2022-03-04] MEDS: ZINC SULFATE 220 MG CAPSULE PO (08:22)
[2022-03-04] MEDS: THIAMINE HCL 100 MG TABLET BY MOUTH (08:22)
[2022-03-04] MEDS: DULoxetine HCL 20 MG CAPSULE.DR PO (08:22)
[2022-03-04] MEDS: LIPASE/AMYLASE/PROTEASE 12,000 UNITS CAP 2 CAP PO ×2 (08:23→11:38)
[2022-03-04] MEDS: FOLIC ACID 1 MG TABLET BY MOUTH (08:23)
[2022-03-04] MEDS: MIDODRINE HCL 10 MG TABLET BY MOUTH ×2 (08:23→12:01)
[2022-03-04] MEDS: TAMSULOSIN HCL 0.4 MG CAPSULE PO (08:23)
[2022-03-04] MEDS: FLUDROCORTISONE ACETATE 0.1 MG TABLET PO (08:23)
[2022-03-04] MEDS: FERROUS SULFATE 324 MG TABLET PO ×2 (08:23→11:38)
[2022-03-04] MEDS: INSULIN ASPART (*BKC) 100 UNITS/ML SUB-Q ×2 (08:40→11:58)
--- NOTE | 2022-03-04 09:06 | PCNFU ---
Nutrition Follow-Up Complete: Malnutrition as related to underweight with loss of fat and/or muscle as evidenced by reported limited access of food in the past couple of weeks(weight loss of 22 ibs >5% ) Goal: Adequate Intake of at least 75% of meals/supplements Patient is meeting current goal. No new goal at this time. Pt current nutrition is DBCC/Glucerna shakes BID/Sincere BID/Banatrol Plus TID. Last recorded weight is 62.1 kg, up from 38.3 kg on admit. Bowel Motility: +BM reported 03/03-no diarrhea reported today. Labs Reviewed:Glu 162, Cr 0.6,Alb 3.0,Hct 24.8,Hgb 8.2 Meds Noted:Folic Acid, Cymbalta, Ferrous Sulfate, Lantus, NovoLog, Imodium, Midodrine, KCL, Lyrica, Thiamine, Flomax. Skin: Deep Tissue-Right Ankle, Stage III Pressure Ulcer-Coccyx Additional Notes: Patient seen today for nutrition follow. Eating breakfast during assessment. Oral Intake has been 100% of meals. Patient has been given double portions cleared by MD. Patient is consuming dietary supplements of Sincere BID for wound healing providing an additional 90 kcals and 2.5 gms protein, Glucerna shakes BID providing an additional 220 kcals and 10 gms protein and Banatrol Plus TID for stool bulking providing an additional 45 kcals. Agree with diet orders. Monitoring: RD will monitor every 7 days.
[2022-03-04] MEDS: FINASTERIDE 5 MG TABLET PO (10:03)
[2022-03-04] MEDS: INSULIN GLARGINE (*BKC) 100 UNITS/ML 17 UNITS SUB-Q (10:04)
[2022-03-04] MEDS: cefTRIAXone 2 GM in SODIUM CHLORIDE 0.9% IV 100 ML 200 ML IVPB (11:27)
[2022-03-04 11:30] LABS: EDCOVIDSCREEN Negative (Negative)
[2022-03-04 11:51] LABS: Glucose Point of Care 117 mg/dl (65-105)
--- NOTE | 2022-03-04 12:04 | PM.DS ---
DS: Admitting Diagnosis Discharge Date 03/04/2022 Admitting Diagnosis Urinary tract infection Pneumonia Sepsis DS: Discharge Diagnosis Discharge Diagnosis (1) Septic shock: Code(s): A41.9 - Sepsis, unspecified organism; R65.21 - Severe sepsis with septic shock Status: Acute Assessment and Plan: Admitted 02/24/22 presented to [place] ED found to be hypotensive and bradycardic. Had a leukocytosis 18.4 w/ lactic acid of 2.4 Was given vancomycin and ceftriaxone at outlying hospital. Was given atropine x2 and 3L IVF, as well. Sepsis likely secondary to pneumonia #2. Urine pneumococcal negative. Urine legionella still pending. Given culture results #3. 1 of 2 blood cultures from 02/24 grew klebsiella pneumoniae sensitive to ceftriaxone. -Norepinephrine gtt was required to maintain blood pressure, intially. DC'd 02/27. -Cortisol level 12.1. Hydrocortisone started 02/26/22 and midodrine & fludrocortisone was started 02/25/22. Hydrocortisone stopped 03/03. -Continue midodrine 10 mg TID and fludrocortisone 0.1 mg daily at home doses. -Complete azithromycin 03/02 -Ceftriaxone 2 grams IV Q24 hours x 7 days for pneumonia & bacteremia, stop after 03/04 dose. -02/28 repeat blood cultures without growth to date. -Improving. (2) Pneumonia: Code(s): J18.9 - Pneumonia, unspecified organism Status: Acute Assessment and Plan: CT also showed bilateral infiltrates, so there was concern for pneumonia. Patient with hx of ETOH abuse. No evidence of aspiration. Stable spO2 on room air without c/o respiratory symptoms. -Resolved. Completed 7 days Rocephin & azithromycin. (3) Bacteremia due to Klebsiella pneumoniae: Code(s): R78.81 - Bacteremia; B96.1 - Klebsiella pneumoniae [K. pneumoniae] as the cause of diseases classified elsewhere Status: Acute Assessment and Plan: As above, per #1. Last dose IV Rocephin 2 grams on 03/04/22. (4) Urinary tract infection: Code(s): N39.0 - Urinary tract infection, site not specified Status: Acute Assessment and Plan: Urine cultures had no bacteria, but grew ramiro glabrata. Fungus growing in urine is not routinely treated and antifungal treatment held as patient has clinically improved without treatment. (5) Electrolyte abnormality: Code(s): E87.8 - Other disorders of electrolyte and fluid balance, not elsewhere classified Status: Acute Assessment and Plan: K 2.5. Mag 1.5. Likely secondary to chronic diarrhea. -Given 120 mEQ PO KCl this morning. Repeat K3.1 and given additional 40 mEQ PO x1. Daily potassium changed 40 mEQ PO BID. Patient will need supplements at discharge. -Give magnesium sulfate 4 grams IVPB x1. Oral magnesium may worsen chronic diarrhea. -Repeat BMP & Mag levels tomorrow and replace as needed. (6) Hypoglycemia: Code(s): E16.2 - Hypoglycemia, unspecified Status: Acute Assessment and Plan: Brittle diabetes with frequent episodes of hypoglycemia. Now with hyperglycemia. -Will try to avoid hypoglycemia -Continue hypoglycemia protocol. -Glucose 141-298 today. Improving. 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 No hypoglycemia episodes. A1c this admission 13.7%. He reports feeling unwell with blood sugars are <140 and likes to keep [his] sugars 250-400. -Lantus 17 units daily. -Aspart 5 units with meals plus high dose correction. -Will gradually titrate insulin to slowly decrease glucose levels to <200 mg/dL as patient tolerates. -Glucose goals discussed with the patient, as well as risks of hyperglycemia. (8) Acute renal failure: Qualifiers: Acute renal failure type: with acute tubular necrosis Qualified Code(s): N17.0
[2022-03-04 16:35] LABS: Glucose Point of Care 76 mg/dl (65-105)
--- NOTE | 2022-03-04 16:49 | WPDURCON ---
Assessment and Plan Assessment and plan (1) BPH (benign prostatic hyperplasia): Code(s): N40.0 - Benign prostatic hyperplasia without lower urinary tract symptoms Status: Acute Assessment and Plan: Continue Tamsulosin, add Finasteride. Will plan to keep loera in for 1-2 weeks then follow up in the office for a voiding trial to further assess. No further plans at this time, ok to discharge at anytime. (2) Retention, urine: Code(s): R33.9 - Retention of urine, unspecified Status: Acute Urology Consult Note HPI Date Seen: 03/04/22 Time Seen: 15:00 Requesting Physician: Maru Thompson DO Primary Care Provider: Frantz Nowak MD Consult Narrative Reason for consult: Urinary retention Narrative: Shad Rodriguez is a 57 year old male who was sent to the ER d/t hypoglycemia and hypotension from his home health nurse who visited him for an assessment recently. He is a poorly controlled diabetic who is a patient of ours in the office that sees Dr. Rivera. He has struggled with urinary retention off and on for two months. He saw Dr. Rivera in the office in 12/26 and he started him on Finasteride, as he was already on Tamsulosin from his PCP. It is unclear if he started it and was taking it consistently after his visit as he was in and out of rehab AMA and non compliant at home. He had his chronic loera removed for a voiding trial and failed to urinate. We were consulted to discuss his options to treat persistent retention. His WBC is 13.3, Creatinine 0.60, CT 02/24/22 shows bladder wall thickening and loera in bladder. Review of Systems Cardiovascular: Cardiovascular: Denies chest pain Respiratory: Respiratory: Reports no additional respiratory complaints Gastrointestinal: Gastrointestinal: Denies abdominal pain, Denies nausea and Denies vomiting Genitourinary: Genitourinary: Denies hematuria, Denies flank pain, Denies urinary frequency, Reports urinary hesitancy and Denies urinary urgency [facility] Past Medical History Medical History Bacteremia due to Klebsiella pneumoniae (11/2021) Bacteremia due to Klebsiella pneumoniae Chronic anemia Diabetic peripheral neuropathy Fecal incontinence Gastroparesis History of alcohol abuse Hypothyroidism Insulin dependent type 2 diabetes mellitus Hemoglobin A1c was greater than 14% on 11/07/2021. Orthostatic hypotension (~11/2021) Osteopenia determined by x-ray Pancreatic insufficiency Pancreatitis Protein calorie malnutrition Pulmonary embolism Thoracic compression fracture T9, T10, T12 Tobacco dependence Surgical History Surgical History History of endoscopic retrograde cholangiopancreatography Patient reports pancreatic stent x2. Family History Family History Sibling Depression Family history of pancreatic disease Mother Acute myocardial infarction, Onset Age: 60 Social History Social History Social History: Healthcare power of insurance attorney: Beth Rodriguez, sister. Code status: Full code. Smoking packs per day: 3 Smoking cigarettes per day: 60.0 Years smoked: 40 Smoking pack-years: 120.00 Smoking status: Current every day smoker Tobacco type: cigarettes Additional smoking assessment comments: Three packs per day until 2011 then down to<1 pack per day. Alcohol intake: former Alcohol use details: Quit 2009 Substance use: former Substance use type: methamphetamine Last use: 02/23/22 Additional living arrangements comments: The patient lives in [place]. Additional occupation/education comments: Disabled. Spiritual care concerns: No Meds Home Medications and Allergies Home Medications Medication Instructions Recorded Confirmed Type tamsulosin 0.4 mg capsule 0.4 mg PO
== END 2022-03-04 17:30 | DRG 720 ==
LOC: ANHICU 02-26 15:43 → ANH2MED 02-27 17:36 → ANHICU 03-06 08:31
PROVIDERS: Family Medicine; Internal Medicine; Nurse Practitioner Family; Admitting Provider Internal Medicine; PCP Internal Medicine; Visit Provider Nurse Practitioner Family
DX: A41.9 Sepsis, unspecified organism (principal); R65.21 Severe sepsis with septic shock; J18.9 Pneumonia, unspecified organism; B37.49 Other urogenital candidiasis; N17.0 Acute kidney failure with tubular necrosis; Z20.822 Contact with and (suspected) exposure to COVID-19; E11.649 Type 2 diabetes mellitus with hypoglycemia without coma; E11.42 Type 2 diabetes mellitus with diabetic polyneuropathy; E11.43 Type 2 diabetes mellitus with diabetic autonomic (poly)neuropathy; K31.84 Gastroparesis; L89.153 Pressure ulcer of sacral region, stage 3; E86.0 Dehydration; E43 Unspecified severe protein-calorie malnutrition; D72.829 Elevated white blood cell count, unspecified; Z68.1 Body mass index [BMI] 19.9 or less, adult; N40.0 Benign prostatic hyperplasia without lower urinary tract symptoms; K86.89 Other specified diseases of pancreas; K52.9 Noninfective gastroenteritis and colitis, unspecified; E03.9 Hypothyroidism, unspecified; E87.6 Hypokalemia; R33.9 Retention of urine, unspecified; E11.65 Type 2 diabetes mellitus with hyperglycemia; D64.9 Anemia, unspecified; I95.1 Orthostatic hypotension; M85.80 Other specified disorders of bone density and structure, unspecified site; F17.210 Nicotine dependence, cigarettes, uncomplicated; Z86.711 Personal history of pulmonary embolism; Z79.4 Long term (current) use of insulin; Z91.19 Patient's noncompliance with other medical treatment and regimen
CPT/HCPCS: 36415; 36569; 80048; 80053; 82533; 82550; 82948; 83036; 83735; 84100; 84132; 85025; 85027; 85610; 87040; 87086; 87088; 87106; 87426; 87449; 87493; 87899; 93005; 97110; 97116; 97161; 97166; 97530; 97535; A9270; C1751; C9803; J0456; J0610; J0696; J1650; J1720; J1815; J3475; J3480; J7030; J7040; J7060; J7120; P9047

== ENCOUNTER 2022-04-09 15:15 | Inpatient (IN) | payer OTHER, SELFPAY ==
[2022-04-09] VITALS (12 sets, daily range): BP systolic 95–115; BP diastolic 56–78; PULSE 83–114; RESP 14–22; TEMP 36.7–39.4; O2SAT 98–99; BMI 14.9
--- NOTE | ~2022-04-09 | XR_ITS ---
XR chest 1V portable 04/20/2022 15:59 Indication: Dyspnea. Elevated white cell count. Procedure: AP portable chest Comparison: 02/25/2022 Findings: There is developing bibasilar airspace disease, consistent with pneumonia. The lungs are hy perinflated which is consistent with, but not diagnostic of chronic obstructive pulmonary disease. He art size normal. Possible small effusion. No pneumothorax. Impression: 1: Developing bibasilar airspace disease, compatible with pneumonia. Reviewed, dictated and finalized at location B. Impression: 1: Developing bibasilar airspace disease, compatible with pneumonia.
--- NOTE | ~2022-04-09 | US_ITS ---
EXAMINATION: US renal BI DATE: 04/09/2022 18:43 INDICATION: Acute renal insufficiency TECHNIQUE: Multiple ultrasound grayscale images of the kidneys were obtained. COMPARISON: CT dated 02/24/2022 FINDINGS: The right kidney measures 11.7 x 4.7 x 6.5 cm. The left kidney measures 12.3 x 6.5 x 6.8 cm. The kidn eys demonstrate normal echogenicity. 2.4 cm anechoic right renal cyst. Persistent mild left and minim al right hydronephrosis. No stones identified. The bladder is decompressed around a Ellison catheter wh ich limits evaluation.. IMPRESSION: 1. Mild left and minimal right hydronephrosis. Reviewed, dictated and finalized at location A.
--- NOTE | ~2022-04-09 | CT_ITS ---
EXAMINATION: CT chest abdomen pelvis w con DATE: 04/18/2022 15:32 CDT INDICATION: Pyelonephritis. Elevated white blood cell count. TECHNIQUE: Computed tomography (CT) of the chest, abdomen, and pelvis was performed with 100 cc Omnip aque 300 intravenous contrast. The dose-length product was 387.41 mGy-cm. Automated exposure control and iterative reconstruction technique were employed. COMPARISON: CT dated 02/24/2022 FINDINGS: CHEST CT: Small pleural effusions. Borderline size mediastinal lymph nodes, likely reactive. Small pericardial effusion. There is dependent atelectasis. There is moderate emphysema. No endobronchial lesions. Ther e is patchy groundglass opacities of the left lower lobe, consistent with pneumonia. ABDOMEN/PELVIS CT: There are small subcentimeter hypodensities of the liver, most likely benign. The spleen, adrenal gla nds are unremarkable. There are coarse calcifications throughout the pancreas with mild pancreatic du ctal dilation, consistent with chronic pancreatitis. There is an exophytic right renal cyst posterior ly measuring 2.4 cm. There is heterogeneous cortical enhancement of the left kidney, particularly of the upper pole, suspicious for pyelonephritis. There is moderate atherosclerosis of the aorta without aneurysm. Nonobstructive bowel gas pattern. There is abnormal thickening of the entire colon, suspic ious for colitis. There is mesenteric edema. There is abnormal thickening of the bladder wall which m ay represent chronic cystitis. Ellison catheter present. Small amount of free fluid in the pelvis. Ther e are mild superior endplate compression deformities of T7, T8 and T11, likely chronic. IMPRESSION: 1. Left lower lobe airspace disease, consistent with pneumonia. 2: Small pleural effusions. Small pericardial effusion. 3: Heterogeneous diminished enhancement of the cortex at the upper pole of the left kidney, suspiciou s for pyelonephritis. 4: Extensive abnormal thickening of the colon, suspicious for colitis, most likely infectious or infl ammatory. 5: Diffuse abnormal thickening of the bladder wall, suspicious for cystitis, likely chronic. Reviewed, dictated and finalized at location A. IMPRESSION: 1. Left lower lobe airspace disease, consistent with pneumonia. 2: Small pleural effusions. Small pericardial effusion. 3: Heterogeneous diminished enhancement of the cortex at the upper pole of the left kidney, suspicious for pyelonephritis. 4: Extensive abnormal thickening of the colon, suspicious for colitis, most lik bertram infectious or inflammatory. 5: Diffuse abnormal thickening of the bladder wall, suspicious for cystitis, l ikely chronic.
--- NOTE | 2022-04-09 15:27 | ECG_ITS ---
Measurements Intervals [place] Rate: 110 P: 73 CA: 146 QRS: 75 QRSD: 92 T: 74 QT: 325 QTc: 440 Interpretive Statements SINUS TACHYCARDIA BASELINE ARTIFACT POSSIBLE LEFT ATRIAL ENLARGEMENT BORDERLINE ECG COMPARED TO ECG 02/25/2022 23:37:21 HEART RATE HAS INCREASED IN CRITERIA FOR ANTERIOR INFARCTION NOT APPRECIATED Electronically Signed On 04-09-2022 15:44:38 CDT by Carter Guzman M.D.
[2022-04-09 15:52] LABS: Basophils Absolute Auto 0.1 K/mm3 (0.0-0.1); Basophils Percent Auto 0.8 % (0.2-1.2); Eosinophils Percent Auto 0.1 % (0-4.4); Hemoglobin 10.7 g/dL (14.0-18.0); Immature Granulocyte Absolute 0.31 K/mm3 (0.00-0.031); Lymphocytes Absolute Auto 1.02 K/mm3 (0.9-3.2); Lymphocytes Percent Auto 6.6 % (18.3-44.2); Mean Corpuscular HGB Conc 31.5 g/dl (32-36); Mean Corpuscular Hemoglobin 28.3 pg (26-34); Mean Corpuscular Volume 89.9 fl (80-100); Mean Platelet Volume 10.4 fl (7.4-10.4); Monocytes Absolute Auto 1.2 K/mm3 (0.1-0.6); Monocytes Percent Auto 7.5 % (2.6-8.5); Neutrophils Absolute Auto 12.9 K/mm3 (1.3-6.7); Platelet Count Result 163 k/mm3 (150-375); Red Blood Count 3.78 M/mm3 (4.6-6.20); White Blood Count 15.5 K/mm3 (4.5-10.0)
[2022-04-09] MEDS: LACTATED RINGERS 1,000 ML 999.08 ML IV CONT (15:53)
[2022-04-09 15:57] LABS: INR 1.3; Prothrombin Time 16.1 Seconds (11.1-14.7)
[2022-04-09 15:58] LABS: Lactic Acid Reflex 3.5 mmol/L (0.7-2.0)
[2022-04-09 16:05] LABS: Alanine Aminotransferase 20 U/L (6-50); Alkaline Phosphatase 242 U/L (38-126); Anion Gap 20 mmol/L (8-16); Aspartate Amino Transferase 33 U/L (17-59); Bilirubin,Total 0.6 mg/dL (0.2-1.3); Blood Urea Nitrogen 55 mg/dL (9-20); Calcium 10.2 mg/dL (8.4-10.2); Carbon Dioxide 9 mmol/L (22-30); Chloride 102 mmol/L (98-107); Estimated CRCL calculation 21 ml/min; Estimated Glomerular Filt Rate 28; Glucose 228 mg/dL (65-110); Sodium 131 mmol/L (137-145)
--- NOTE | 2022-04-09 16:10 | ED.GENADULT ---
HPI - General Adult General Chief complaint: Weakness Stated complaint: more lethargic Time Seen by Provider: 04/09/22 15:15 History of Present Illness HPI narrative: This is a 57-year-old [facility] patient with a history of recurring UTIs with sepsis with an EGD with a chief complaint of weakness. The patient is typically a and O x4 but is nonverbal at this point. He is unable provide any information. He was febrile [facility] and EMS was called. Related Data Home Medications Medication Instructions Recorded Confirmed levothyroxine 75 mcg tablet 75 mcg PO DAILY 11/06/21 02/25/22 (Euthyrox) Daily Vitamin C Pack 500 mg PO Q12H 11/28/21 02/25/22 Humalog U-100 Insulin See Rx Instructions .Route .COMPLEX 11/28/21 02/25/22 ferrous sulfate 325 mg (65 mg 325 mg PO TIDWM 11/30/21 02/25/22 iron) tablet midodrine 10 mg tablet 10 mg BYMOUTH Q8H 11/30/21 02/25/22 Allergies Allergy/AdvReac Type Severity Reaction Status Date / Time amoxicillin Allergy Rash Verified 04/09/22 16:35 Penicillins Allergy Rash Verified 04/09/22 16:35 Review of Systems Review of Systems: ROS unobtainable: Yes unobtainable due to medical condition PMFSH Past Medical History Medical History Bacteremia due to Klebsiella pneumoniae (11/2021) Bacteremia due to Klebsiella pneumoniae Chronic anemia Diabetic peripheral neuropathy Fecal incontinence Gastroparesis History of alcohol abuse Hypothyroidism Insulin dependent type 2 diabetes mellitus Hemoglobin A1c was greater than 14% on 11/07/2021. Orthostatic hypotension (~11/2021) Osteopenia determined by x-ray Pancreatic insufficiency Pancreatitis Protein calorie malnutrition Pulmonary embolism Thoracic compression fracture T9, T10, T12 Tobacco dependence Weakness generalized Surgical History Surgical History History of endoscopic retrograde cholangiopancreatography Patient reports pancreatic stent x2. Family History Family History Sibling Depression Family history of pancreatic disease Mother Acute myocardial infarction, Onset Age: 60 Social History Social History Social History: Healthcare power of [place] attorney: Beth Rodriguez, sister. Code status: Full code. Smoking packs per day: 3 Smoking cigarettes per day: 60.0 Years smoked: 40 Smoking pack-years: 120.00 Smoking status: Current every day smoker Tobacco type: cigarettes Additional smoking assessment comments: Three packs per day until 2011 then down to<1 pack per day. Alcohol intake: former Alcohol use details: Quit 2009 Substance use: former Substance use type: methamphetamine Last use: 02/23/22 Additional living arrangements comments: The patient lives in [place]. Additional occupation/education comments: Disabled. Spiritual care concerns: No Exam Narrative: APPEARANCE: patient is lying supine in bed. He is nonverbal. He appears older than his stated age. He is emaciated. Head atraumatic. EYES: PERRLA/EOMI, NOSE: Normal no drainage NECK: Supple, Trachea midline RESPIRATORY: CTAB, No increased work of breathing. CARDIOVASCULAR: S1S2 appreciated ABDOMINAL: Soft, nontender, nondistended, MUSCULOSKELETAl: No obvious deformities NEURO: intermittently alert, Moving 4/4 extremities SKIN:: Skin is hot to touch, dry. Stage II sacral decubitus PSYCHIATRIC: nonverbal Course Vital Signs Vital signs: Vital Signs Temperature 103 F H 04/09/22 15:15 Pulse Rate 114 H 04/09/22 15:15 Respiratory Rate 22 H 04/09/22 15:15 Blood Pressure 98/65 L 04/09/22 15:15 Pulse Oximetry 99 04/09/22 15:15 Oxygen Delivery Room Air 04/09/22 15:15 Temperature 100 F H 04/09/22 16:15 Pulse Rate 103 H 04/09/22 16:13 Respiratory Rate 18 04/09/22 16:01
[2022-04-09 16:21] LABS: CRP 30.8 mg/dL (<1.0)
[2022-04-09 16:25] LABS: Add Urine Microscopic? YES; Appearance Urine Slightly Cloudy (Clear); Bilirubin Urine Negative (Negative); Blood Urine 2+ (Negative); Color Urine Yellow (Yellow); Glucose Urine UA Negative (Negative); Ketones Urine Negative (Negative); Leukocyte Esterase Ur 2+ LEU/UL (Negative); Nitrate Urine Negative (Negative); Protein Urine 2+ mg/dL (Negative); Urobilinogen Urine 0.2 mg/dL (<2.0); pH Urine 5.5 (5.0-9.0)
[2022-04-09 16:29] LABS: Bacteria Urine Trace /hpf; Budding Yeast Urine Present /hpf; RBC Urine 21-50 /hpf (0-2); WBC Urine >75 /hpf
[2022-04-09 16:52] LABS: SARS-CoV-2 RNA PCR Negative
[2022-04-09] MEDS: LACTATED RINGERS 1,000 ML 100 ML IV CONT (16:58)
--- NOTE | 2022-04-09 17:31 | PM.IMHP ---
H&P: HPI History of Present Illness Date/Time: 04/09/22 17:31 Chief Complaint: Weakness Narrative: ED-HPI narrative: ? This is a 57-year-old [facility] patient with a history of recurring UTIs with sepsis with an EGD with a chief complaint of weakness.? The patient is typically a and O x4 but is nonverbal at this point.? He is unable provide any information.? He was febrile [facility] and EMS was called. ED-Planning this is a 57-year-old male from [facility] with history of recurrent UTIs sepsis presenting ED febrile, tachycardic and hypotensive.? A high suspicion for sepsis at this time.? Full sepsis workup has been ordered.? Patient has been given 30 cc per kg of lactated Ringer's and IV Tylenol. I consulted Infectious Disease pharmacist we agreed the patient should be placed on ceftriaxone and vancomycin due to his history of multi-drug resistant organisms. ? This patient was re-evaluated after his initial fluid bolus and his heart rate has decreased, his blood pressure has increased and his mentation has improved.? Lab work was significant for an elevated white blood cell count, as well as an acute kidney injury without? hyperkalemia.? Urinalysis was indicative of UTI.? It has been sent for urine culture.? The patient will be admitted to the hospital for further management of his sepsis.? The hospitalist, Dr. Howard,? was informed of the negative for patient and has agreed to take the admission.? The patient will be admitted to the [facility] with tele floor. interval history currently patient is quite somnolent unable to provide any review of symptoms or history most of history is recorded from ER chart and after talking with the ER physician Dr. Parikh, will continue ceftriaxone and vancomycin, will follow-up on urine and blood culture identification and and sensitivity and further recommendation to follow, will continue to work with pharmacy id for further recommendation. will have a PT OT evaluate the patient patient will benefit from rehab. patient is admitted as inpatient will stay in the hospital for 2 midnight due to sepsis Review of Systems Review of Systems: ROS unobtainable: Yes unobtainable due to medical condition PMFSH Past Medical History Medical History Bacteremia due to Klebsiella pneumoniae (11/2021) Bacteremia due to Klebsiella pneumoniae Chronic anemia Diabetic peripheral neuropathy Fecal incontinence Gastroparesis History of alcohol abuse Hypothyroidism Insulin dependent type 2 diabetes mellitus Hemoglobin A1c was greater than 14% on 11/07/2021. Orthostatic hypotension (~11/2021) Osteopenia determined by x-ray Pancreatic insufficiency Pancreatitis Protein calorie malnutrition Pulmonary embolism Thoracic compression fracture T9, T10, T12 Tobacco dependence Weakness generalized Surgical History Surgical History History of endoscopic retrograde cholangiopancreatography Patient reports pancreatic stent x2. Family History Family History Sibling Depression Family history of pancreatic disease Mother Acute myocardial infarction, Onset Age: 60 Social History Social History Social History: Healthcare power of claims attorney: Beth Rodriguez, sister. Code status: Full code. Smoking packs per day: 8 Smoking cigarettes per day: 160.0 Years smoked: 45 Smoking pack-years: 360.00 Smoking status: Current every day smoker Tobacco type: cigarettes Additional smoking assessment comments: Three packs per day until 2011 then down to<1 pack per day. Alcohol intake: unknown Alcohol use details: Quit 2009 Substance use: unknown Substance use type: methamphetamine Last use: 02/23/22 Additional living arrangements comments: The patient lives in [place]. [place]
[2022-04-09] MEDS: LACTATED RINGERS 1,000 ML 999 ML IV CONT (18:01)
[2022-04-09 18:44] LABS: Reflex Lactic Acid Yes or No Add Lactic
--- NOTE | 2022-04-09 19:00 | PC.NURSE ---
pt more verbal at this time but still doesn't carry on coversation.
--- NOTE | 2022-04-09 19:33 | ADMGEN ---
This patient, Shad Rodriguez, was admitted to Medical Room 255-. Patient/family oriented to hospital policies and general routines including ID bracelet, bed and alarms, visiting hours, pain management, procedures, bathroom and other care routines, personal items, smoking policy, room service/diet, and visiting hours. Information on how to activate the Rapid Response Team has been discussed. Patient/Family are encouraged to report perceived risks to care and to ask questions if they do not understand what they are told or what they should do.
[2022-04-09 20:49] LABS: Lactic Acid 1.4 mmol/L (0.7-2.0)
[2022-04-10] VITALS (10 sets, daily range): BP systolic 108–111; BP diastolic 62–71; PULSE 81–111; RESP 16–18; TEMP 36.6–37.4; O2SAT 98–100; BMI 14.9
[2022-04-10 05:49] LABS: Hematocrit 32.8 % (42.0-52.0); Hemoglobin 10.3 g/dL (14.0-18.0); Mean Corpuscular HGB Conc 31.4 g/dl (32-36); Mean Corpuscular Hemoglobin 28.4 pg (26-34); Mean Corpuscular Volume 90.4 fl (80-100); Mean Platelet Volume 10.6 fl (7.4-10.4); Platelet Count Result 135 k/mm3 (150-375); Red Blood Count 3.63 M/mm3 (4.6-6.20); Red Cell Distribution Width 15.1 % (11.5-14.5); White Blood Count 14.7 K/mm3 (4.5-10.0)
[2022-04-10 06:04] LABS: Albumin Level 3.6 g/dL (3.5-5.1); Anion Gap 15 mmol/L (8-16); Blood Urea Nitrogen 43 mg/dL (9-20); Calcium 9.6 mg/dL (8.4-10.2); Carbon Dioxide 12 mmol/L (22-30); Chloride 103 mmol/L (98-107); Estimated CRCL calculation 32 ml/min; Estimated Glomerular Filt Rate 45; Glucose 403 mg/dL (65-110); Magnesium 1.8 mg/dL (1.6-2.3); Potassium 3.1 mmol/L (3.4-5.0); Sodium 130 mmol/L (137-145)
[2022-04-10 06:37] LABS: Band Neutrophils Percent 21 % (0-6); Lymphocytes Absolute Manual 1.32 K/mm3 (1.1-4.5); Monocytes Absolute Manual 1.02 K/mm3 (0.1-0.90); Monocytes Percent Manual 7 % (3-9); Myelocytes Percent 1 %; Neutrophils Percent Manual 62 % (46-73); Platelet Estimate Adequate (Adequate); Total Cells Counted 100
[2022-04-10 06:38] LABS: Platelet Clumps Present
[2022-04-10 06:46] LABS: Toxigenic C. Diff NEGATIVE (NEGATIVE)
[2022-04-10 08:50] LABS: Glucose Point of Care 462 mg/dl (65-105)
[2022-04-10] MEDS: POTASSIUM CHLORIDE 20 MEQ TABLET 40 MEQ PO (09:29)
[2022-04-10] MEDS: PREGABALIN (*CRX) 75 MG CAPSULE PO ×3 (09:29→17:26)
[2022-04-10] MEDS: TAMSULOSIN HCL 0.4 MG CAPSULE PO (09:29)
[2022-04-10] MEDS: ZINC SULFATE 220 MG CAPSULE PO (09:29)
[2022-04-10] MEDS: THIAMINE HCL 100 MG TABLET BY MOUTH (09:29)
[2022-04-10] MEDS: LIPASE/AMYLASE/PROTEASE 12,000 UNITS CAP 2 CAP PO ×3 (09:29→17:25)
[2022-04-10] MEDS: cefTRIAXone 2 GM in SODIUM CHLORIDE 0.9% IV 100 ML 200 ML IVPB (09:30)
[2022-04-10] MEDS: ASCORBIC ACID 500 MG TABLET PO ×2 (09:30→20:59)
[2022-04-10] MEDS: HEPARIN SODIUM 5,000 UNITS/ML VIAL 5000 UNITS SUB-Q (09:30)
[2022-04-10] MEDS: DULoxetine HCL 20 MG CAPSULE.DR PO (09:30)
[2022-04-10] MEDS: MIDODRINE HCL 10 MG TABLET BY MOUTH ×3 (09:30→17:26)
[2022-04-10] MEDS: CHOLECALCIFEROL 1,000 UNITS TABLET 1000 UNITS BY MOUTH (09:30)
[2022-04-10] MEDS: GABAPENTIN 100 MG CAPSULE 200 MG PO ×2 (09:30→17:26)
[2022-04-10] MEDS: FERROUS SULFATE 324 MG TABLET PO ×3 (09:30→17:26)
[2022-04-10] MEDS: FOLIC ACID 1 MG TABLET BY MOUTH (09:30)
[2022-04-10] MEDS: FLUDROCORTISONE ACETATE 0.1 MG TABLET PO (09:30)
[2022-04-10] MEDS: INSULIN GLARGINE (*BKC) 100 UNITS/ML 10 UNITS SUB-Q (09:31)
[2022-04-10] MEDS: INSULIN ASPART (*BKC) 100 UNITS/ML SUB-Q ×2 (09:31→17:26)
[2022-04-10 12:09] LABS: Glucose Point of Care 462 mg/dl (65-105)
[2022-04-10 12:15] LABS: Glucose Point of Care 457 mg/dl (65-105)
[2022-04-10] MEDS: INSULIN ASPART (*BKC) 100 UNITS/ML 10 UNITS SUB-Q (12:26)
[2022-04-10] MEDS: INSULIN GLARGINE (*BKC) 100 UNITS/ML 20 UNITS SUB-Q (12:27)
[2022-04-10] MEDS: SILVERGEL (ELTA) 45 ML 1 APPLIC TOPICAL (12:35)
--- NOTE | 2022-04-10 12:51 | PM.IMPN ---
Progress Note: A&P Assessment and Plan (1) Delirium due to general medical condition: Code(s): F05 - Delirium due to known physiological condition Status: Acute Assessment and Plan: ED-HPI narrative: ? This is a 57-year-old shelter patient with a history of recurring UTIs with sepsis with an EGD with a chief complaint of weakness.? The patient is typically a and O x4 but is nonverbal at this point.? He is unable provide any information.? He was febrile shelter and EMS was called. ED-Planning this is a 57-year-old male from shelter with history of recurrent UTIs sepsis presenting ED febrile, tachycardic and hypotensive.? A high suspicion for sepsis at this time.? Full sepsis workup has been ordered.? Patient has been given 30 cc per kg of lactated Ringer's and IV Tylenol. I consulted Infectious Disease pharmacist we agreed the patient should be placed on ceftriaxone and vancomycin due to his history of multi-drug resistant organisms. ? This patient was re-evaluated after his initial fluid bolus and his heart rate has decreased, his blood pressure has increased and his mentation has improved.? Lab work was significant for an elevated white blood cell count, as well as an acute kidney injury without? hyperkalemia.? Urinalysis was indicative of UTI.? It has been sent for urine culture.? The patient will be admitted to the hospital for further management of his sepsis.? The hospitalist, Dr. Howard,? was informed of the negative for patient and has agreed to take the admission.? The patient will be admitted to the [facility] with tele floor. interval history currently patient is quite somnolent unable to provide any review of symptoms or history most of history is recorded from ER chart and after talking with the ER physician Dr. Parikh, will continue ceftriaxone and vancomycin, will follow-up on urine and blood culture identification and and sensitivity and further recommendation to follow, will continue to work with pharmacy id for further recommendation. will have a PT OT evaluate the patient patient will benefit from rehab. 04/10/2022 interval history: today patient is more alert and oriented stats feels muchMuch better compared to when he arrived, most likely patient's symptoms are stemming from sepsis due to UTI, urine and blood cultures are pending, will continue ceftriaxone and vancomycin, will follow-up on urine and blood culture identification and and sensitivity and further recommendation to follow, will continue to work with pharmacy id for further recommendation. upon arrival patient had GERI with BUN and serum creatinine 55/2.4 most likely secondary to dehydration as patient serum creatinine improving 43/1.6 will continue hydrate the patient, kidney ultrasound is essentially normal, will have a PT OT evaluate the patient patient will benefit from rehab. (2) Sepsis: Code(s): A41.9 - Sepsis, unspecified organism Status: Acute Assessment and Plan: upon arrival patient met the criteria for sepsis with fever, elevated lactic acid, elevated white count, acute mental status change, and possible source of infection UTI will follow-up on blood culture. (3) Acute kidney injury: Code(s): N17.9 - Acute kidney failure, unspecified Status: Acute Assessment and Plan: GERI with baseline creatinine of 0.6, presented with BUN of 55 and creatinine of 2.4most likely secondary to dehydration due to poor p.o. intake, now with sepsis, being treated and hydrated will monitor kidney function and to further evaluate do kidney ultrasound. (4) UTI (urinary tract infection) due to urinary indwelling Ellison catheter: Code(s): T83.511A - Infection and inflammatory reaction due to indwelling urethral catheter, initial encounter; N39.0 - Urinary tract infection, site not specified Status: Acute Assessment and Plan: patient with history of recurrent UTI plan is above Subjective
[2022-04-10] MEDS: SODIUM CHLORIDE 0.9% IV 1,000 ML 100 ML IV CONT ×2 (13:35→23:54)
[2022-04-10] MEDS: LOPERAMIDE HCL 2 MG CAPSULE PO ×2 (13:35→17:25)
[2022-04-10 16:54] LABS: Glucose Point of Care 278 mg/dl (65-105)
[2022-04-10 21:04] LABS: Glucose Point of Care 192 mg/dl (65-105)
[2022-04-11] VITALS (10 sets, daily range): BP systolic 97–109; BP diastolic 61–76; PULSE 70–98; RESP 16–18; TEMP 36.8–37.7; O2SAT 96–100
[2022-04-11] MEDS: LEVOTHYROXINE SODIUM 75 MCG TABLET PO (07:10)
[2022-04-11 07:15] LABS: Albumin Level 3.1 g/dL (3.5-5.1); Anion Gap 15 mmol/L (8-16); Blood Urea Nitrogen 38 mg/dL (9-20); Calcium 8.9 mg/dL (8.4-10.2); Carbon Dioxide 11 mmol/L (22-30); Chloride 111 mmol/L (98-107); Estimated CRCL calculation 42 ml/min; Estimated Glomerular Filt Rate > 60; Glucose 112 mg/dL (65-110); Phosphorus 2.2 mg/dL (2.5-4.5); Potassium 2.7 mmol/L (3.4-5.0); Sodium 137 mmol/L (137-145)
[2022-04-11 07:55] LABS: Glucose Point of Care 155 mg/dl (65-105)
[2022-04-11] MEDS: cefTRIAXone 2 GM in SODIUM CHLORIDE 0.9% IV 100 ML IVPB (08:10)
[2022-04-11] MEDS: LOPERAMIDE HCL 2 MG CAPSULE PO ×2 (08:15→16:38)
[2022-04-11] MEDS: PREGABALIN (*CRX) 75 MG CAPSULE PO ×3 (08:15→16:38)
[2022-04-11] MEDS: POTASSIUM CHLORIDE 20 MEQ TABLET 40 MEQ PO ×2 (08:16→18:02)
[2022-04-11] MEDS: ZINC SULFATE 220 MG CAPSULE PO (08:22)
[2022-04-11] MEDS: LIPASE/AMYLASE/PROTEASE 12,000 UNITS CAP 2 CAP PO ×3 (08:22→16:35)
[2022-04-11] MEDS: GABAPENTIN 100 MG CAPSULE 200 MG PO ×2 (08:22→16:35)
[2022-04-11] MEDS: FERROUS SULFATE 324 MG TABLET PO ×3 (08:23→16:35)
[2022-04-11] MEDS: FLUDROCORTISONE ACETATE 0.1 MG TABLET PO (08:23)
[2022-04-11] MEDS: CHOLECALCIFEROL 1,000 UNITS TABLET 1000 UNITS BY MOUTH (08:23)
[2022-04-11] MEDS: MIDODRINE HCL 10 MG TABLET BY MOUTH ×3 (08:23→16:35)
[2022-04-11] MEDS: ASCORBIC ACID 500 MG TABLET PO ×2 (08:24→21:11)
[2022-04-11] MEDS: FOLIC ACID 1 MG TABLET BY MOUTH (08:24)
[2022-04-11] MEDS: THIAMINE HCL 100 MG TABLET BY MOUTH (08:24)
[2022-04-11] MEDS: TAMSULOSIN HCL 0.4 MG CAPSULE PO (08:24)
[2022-04-11] MEDS: DULoxetine HCL 20 MG CAPSULE.DR PO (08:24)
[2022-04-11] MEDS: SILVERGEL (ELTA) 45 ML 1 APPLIC TOPICAL (08:25)
[2022-04-11] MEDS: POTASSIUM CHLORIDE INJ 40 MEQ in SODIUM CHLORIDE 0.9% IV 500 ML 130 MEQ IVPB (09:09)
--- NOTE | 2022-04-11 11:28 | PM.IMPN ---
Progress Note: A&P Assessment and Plan (1) Delirium due to general medical condition: Code(s): F05 - Delirium due to known physiological condition Status: Acute Assessment and Plan: ED-HPI narrative: ? This is a 57-year-old [facility] patient with a history of recurring UTIs with sepsis with an EGD with a chief complaint of weakness.? The patient is typically a and O x4 but is nonverbal at this point.? He is unable provide any information.? He was febrile [facility] and EMS was called. ED-Planning this is a 57-year-old male from [facility] with history of recurrent UTIs sepsis presenting ED febrile, tachycardic and hypotensive.? A high suspicion for sepsis at this time.? Full sepsis workup has been ordered.? Patient has been given 30 cc per kg of lactated Ringer's and IV Tylenol. I consulted Infectious Disease pharmacist we agreed the patient should be placed on ceftriaxone and vancomycin due to his history of multi-drug resistant organisms. ? This patient was re-evaluated after his initial fluid bolus and his heart rate has decreased, his blood pressure has increased and his mentation has improved.? Lab work was significant for an elevated white blood cell count, as well as an acute kidney injury without? hyperkalemia.? Urinalysis was indicative of UTI.? It has been sent for urine culture.? The patient will be admitted to the hospital for further management of his sepsis.? The hospitalist, Dr. Howard,? was informed of the negative for patient and has agreed to take the admission.? The patient will be [facility] to the [facility] tele floor. interval history currently patient is quite somnolent unable to provide any review of symptoms or history most of history is recorded from ER chart and after talking with the ER physician Dr. Parikh, will continue ceftriaxone and vancomycin, will follow-up on urine and blood culture identification and and sensitivity and further recommendation to follow, will continue to work with pharmacy id for further recommendation. will have a PT OT evaluate the patient patient will benefit from rehab. 04/10/2022 interval history: today patient is more alert and oriented stats feels muchMuch better compared to when he arrived, most likely patient's symptoms are stemming from sepsis due to UTI, urine and blood cultures are pending, will continue ceftriaxone and vancomycin, will follow-up on urine and blood culture identification and and sensitivity and further recommendation to follow, will continue to work with pharmacy id for further recommendation. upon arrival patient had GERI with BUN and serum creatinine 55/2.4 most likely secondary to dehydration as patient serum creatinine improving 43/1.6 will continue hydrate the patient, kidney ultrasound is essentially normal, will have a PT OT evaluate the patient patient will benefit from rehab. 04/11/2022 interval history: today patient is more alert and oriented stats feels muchMuch better compared to when he arrived, most likely patient's symptoms are stemming from sepsis due to blood cultures Positive for E coli will follow-up on sensitivity, will continue ceftriaxone and vancomycin, urine culture no growth so far, will continue to work with pharmacy id for further recommendation. upon arrival patient had GERI with BUN and serum creatinine 55/2.4 most likely secondary to dehydration as patient serum creatinine improving 38/1.2 will continue hydrate the patient, kidney ultrasound is essentially normal, will have a PT OT evaluate the patient patient will benefit from rehab. (2) Sepsis: Code(s): A41.9 - Sepsis, unspecified organism Status: Acute Assessment and Plan: upon arrival patient met the criteria for sepsis with fever, elevated lactic acid, elevated white count, acute mental status change, and possible source of infection UTI will follow-up on blood culture. (3) Acute kidney injury: Code(s): N17.9 - Acute kidney f
[2022-04-11 12:18] LABS: Glucose Point of Care 150 mg/dl (65-105)
[2022-04-11 15:51] LABS: Anion Gap 11 mmol/L (8-16); Blood Urea Nitrogen 33 mg/dL (9-20); Calcium 9.1 mg/dL (8.4-10.2); Carbon Dioxide 13 mmol/L (22-30); Chloride 109 mmol/L (98-107); Estimated CRCL calculation 42 ml/min; Estimated Glomerular Filt Rate > 60; Glucose 161 mg/dL (65-110); Magnesium 1.9 mg/dL (1.6-2.3); Potassium 3.3 mmol/L (3.4-5.0); Sodium 133 mmol/L (137-145)
[2022-04-11] MEDS: SODIUM CHLORIDE 0.9% IV 1,000 ML 100 ML IV CONT (15:59)
[2022-04-11 17:35] LABS: Glucose Point of Care 127 mg/dl (65-105)
[2022-04-11 21:55] LABS: Glucose Point of Care 116 mg/dl (65-105)
[2022-04-12] VITALS (10 sets, daily range): BP systolic 105–119; BP diastolic 64–73; PULSE 77–94; RESP 16–20; TEMP 36.4–36.9; O2SAT 96–100
[2022-04-12] MEDS: SODIUM CHLORIDE 0.9% IV 1,000 ML 100 ML IV CONT ×2 (06:00→13:48)
[2022-04-12 06:45] LABS: Albumin Level 2.8 g/dL (3.5-5.1); Anion Gap 12 mmol/L (8-16); Blood Urea Nitrogen 31 mg/dL (9-20); Calcium 8.7 mg/dL (8.4-10.2); Carbon Dioxide 12 mmol/L (22-30); Chloride 113 mmol/L (98-107); Estimated CRCL calculation 45 ml/min; Estimated Glomerular Filt Rate > 60; Glucose 76 mg/dL (65-110); Phosphorus 1.7 mg/dL (2.5-4.5); Potassium 2.9 mmol/L (3.4-5.0); Sodium 137 mmol/L (137-145)
[2022-04-12] MEDS: LEVOTHYROXINE SODIUM 75 MCG TABLET PO (07:16)
[2022-04-12 07:45] LABS: Glucose Point of Care 96 mg/dl (65-105)
[2022-04-12 08:25] LABS: Glucose Point of Care 110 mg/dl (65-105)
[2022-04-12] MEDS: DULoxetine HCL 20 MG CAPSULE.DR PO (09:02)
[2022-04-12] MEDS: FERROUS SULFATE 324 MG TABLET PO ×3 (09:02→17:15)
[2022-04-12] MEDS: THIAMINE HCL 100 MG TABLET BY MOUTH (09:03)
[2022-04-12] MEDS: LOPERAMIDE HCL 2 MG CAPSULE PO (09:03)
[2022-04-12] MEDS: FLUDROCORTISONE ACETATE 0.1 MG TABLET PO (09:03)
[2022-04-12] MEDS: FOLIC ACID 1 MG TABLET BY MOUTH (09:03)
[2022-04-12] MEDS: CHOLECALCIFEROL 1,000 UNITS TABLET 1000 UNITS BY MOUTH (09:03)
[2022-04-12] MEDS: GABAPENTIN 100 MG CAPSULE 200 MG PO ×2 (09:03→17:16)
[2022-04-12] MEDS: TAMSULOSIN HCL 0.4 MG CAPSULE PO (09:03)
[2022-04-12] MEDS: ERGOCALCIFEROL 50,000 UNIT CAPSULE 50000 UNITS PO (09:03)
[2022-04-12] MEDS: ZINC SULFATE 220 MG CAPSULE PO (09:03)
[2022-04-12] MEDS: MIDODRINE HCL 10 MG TABLET BY MOUTH ×3 (09:03→17:15)
[2022-04-12] MEDS: ASCORBIC ACID 500 MG TABLET PO ×2 (09:04→20:59)
[2022-04-12] MEDS: LIPASE/AMYLASE/PROTEASE 12,000 UNITS CAP 2 CAP PO ×3 (09:04→17:15)
[2022-04-12] MEDS: POTASSIUM/PHOSPHORUS/SODIUM 1.5 GM PACKET 2 PACKET PO (09:05)
[2022-04-12] MEDS: cefTRIAXone 2 GM in SODIUM CHLORIDE 0.9% IV 100 ML 200 ML IVPB (09:05)
[2022-04-12] MEDS: MAGNESIUM OXIDE 400 MG TABLET PO (09:05)
[2022-04-12] MEDS: SILVERGEL (ELTA) 45 ML 1 APPLIC TOPICAL (09:06)
[2022-04-12] MEDS: PREGABALIN (*CRX) 75 MG CAPSULE PO ×3 (09:11→17:17)
[2022-04-12 11:53] LABS: Glucose Point of Care 214 mg/dl (65-105)
[2022-04-12] MEDS: INSULIN ASPART (*BKC) 100 UNITS/ML SUB-Q ×2 (12:10→17:42)
--- NOTE | 2022-04-12 13:55 | PM.IMPN ---
Progress Note: A&P Assessment and Plan (1) Delirium due to general medical condition: Code(s): F05 - Delirium due to known physiological condition Status: Acute Assessment and Plan: ED-HPI narrative: ? This is a 57-year-old retirement patient with a history of recurring UTIs with sepsis with an EGD with a chief complaint of weakness.? The patient is typically a and O x4 but is nonverbal at this point.? He is unable provide any information.? He was febrile retirement and EMS was called. ED-Planning this is a 57-year-old male from retirement with history of recurrent UTIs sepsis presenting ED febrile, tachycardic and hypotensive.? A high suspicion for sepsis at this time.? Full sepsis workup has been ordered.? Patient has been given 30 cc per kg of lactated Ringer's and IV Tylenol. I consulted Infectious Disease pharmacist we agreed the patient should be placed on ceftriaxone and vancomycin due to his history of multi-drug resistant organisms. ? This patient was re-evaluated after his initial fluid bolus and his heart rate has decreased, his blood pressure has increased and his mentation has improved.? Lab work was significant for an elevated white blood cell count, as well as an acute kidney injury without? hyperkalemia.? Urinalysis was indicative of UTI.? It has been sent for urine culture.? The patient will be admitted to the hospital for further management of his sepsis.? The hospitalist, Dr. Howard,? was informed of the negative for patient and has agreed to take the admission.? The patient will be admitted to the [facility] with tele floor. interval history currently patient is quite somnolent unable to provide any review of symptoms or history most of history is recorded from ER chart and after talking with the ER physician Dr. Parikh, will continue ceftriaxone and vancomycin, will follow-up on urine and blood culture identification and and sensitivity and further recommendation to follow, will continue to work with pharmacy id for further recommendation. will have a PT OT evaluate the patient patient will benefit from rehab. 04/10/2022 interval history: today patient is more alert and oriented stats feels muchMuch better compared to when he arrived, most likely patient's symptoms are stemming from sepsis due to UTI, urine and blood cultures are pending, will continue ceftriaxone and vancomycin, will follow-up on urine and blood culture identification and and sensitivity and further recommendation to follow, will continue to work with pharmacy id for further recommendation. upon arrival patient had GERI with BUN and serum creatinine 55/2.4 most likely secondary to dehydration as patient serum creatinine improving 43/1.6 will continue hydrate the patient, kidney ultrasound is essentially normal, will have a PT OT evaluate the patient patient will benefit from rehab. 04/11/2022 interval history: today patient is more alert and oriented stats feels muchMuch better compared to when he arrived, most likely patient's symptoms are stemming from sepsis due to blood cultures Positive for E coli will follow-up on sensitivity, will continue ceftriaxone and vancomycin, urine culture no growth so far, will continue to work with pharmacy id for further recommendation. upon arrival patient had GERI with BUN and serum creatinine 55/2.4 most likely secondary to dehydration as patient serum creatinine improving 38/1.2 will continue hydrate the patient, kidney ultrasound is essentially normal, will have a PT OT evaluate the patient patient will benefit from rehab. 04/12/2022 interval history: today patient is more alert and oriented stats feels much better compared to when he arrived, most likely patient's symptoms are stemming from sepsis due to blood cultures Positive for E coli will follow-up on sensitivity, will continue ceftriaxone and vancomycin, urine culture no growth so far, will continue to work with pharmacy id for further recommend
[2022-04-12 15:44] LABS: Albumin Level 2.6 g/dL (3.5-5.1); Anion Gap 12 mmol/L (8-16); Blood Urea Nitrogen 32 mg/dL (9-20); Calcium 8.4 mg/dL (8.4-10.2); Carbon Dioxide 13 mmol/L (22-30); Chloride 108 mmol/L (98-107); Estimated CRCL calculation 42 ml/min; Estimated Glomerular Filt Rate > 60; Glucose 303 mg/dL (65-110); Magnesium 1.6 mg/dL (1.6-2.3); Phosphorus 2.6 mg/dL (2.5-4.5); Potassium 2.8 mmol/L (3.4-5.0); Sodium 133 mmol/L (137-145)
[2022-04-12 17:28] LABS: Glucose Point of Care 266 mg/dl (65-105)
[2022-04-12] MEDS: POTASSIUM CHLORIDE 20 MEQ TABLET 40 MEQ PO (17:46)
[2022-04-12] MEDS: MAGNESIUM SULF 2 GM/WATER 50ML 2 GM/50 ML BAG IVPB (17:46)
[2022-04-12] MEDS: POTASSIUM CHLORIDE INJ 40 MEQ in SODIUM CHLORIDE 0.9% IV 500 ML 130 MEQ IVPB (18:48)
[2022-04-12 20:32] LABS: Glucose Point of Care 292 mg/dl (65-105)
[2022-04-12] MEDS: ACETAMINOPHEN 500 MG TABLET 1000 MG PO (20:59)
[2022-04-13] VITALS (11 sets, daily range): BP systolic 82–112; BP diastolic 54–80; PULSE 68–78; RESP 16–20; TEMP 36.1–36.9; O2SAT 98–100
[2022-04-13] MEDS: SODIUM CHLORIDE 0.9% IV 1,000 ML 100 ML IV CONT ×2 (05:29→17:36)
[2022-04-13] MEDS: LEVOTHYROXINE SODIUM 75 MCG TABLET PO (05:30)
[2022-04-13 05:46] LABS: Hematocrit 27.6 % (42.0-52.0); Hemoglobin 8.7 g/dL (14.0-18.0); Mean Corpuscular HGB Conc 31.5 g/dl (32-36); Mean Corpuscular Hemoglobin 27.9 pg (26-34); Mean Corpuscular Volume 88.5 fl (80-100); Mean Platelet Volume 10.2 fl (7.4-10.4); Platelet Count Result 121 k/mm3 (150-375); Red Blood Count 3.12 M/mm3 (4.6-6.20); Red Cell Distribution Width 15.9 % (11.5-14.5); White Blood Count 21.6 K/mm3 (4.5-10.0)
[2022-04-13 07:24] LABS: Albumin Level 2.4 g/dL (3.5-5.1); Anion Gap 9 mmol/L (8-16); Blood Urea Nitrogen 29 mg/dL (9-20); Calcium 8.1 mg/dL (8.4-10.2); Carbon Dioxide 12 mmol/L (22-30); Chloride 110 mmol/L (98-107); Estimated CRCL calculation 45 ml/min; Estimated Glomerular Filt Rate > 60; Glucose 285 mg/dL (65-110); Phosphorus 2.3 mg/dL (2.5-4.5); Sodium 131 mmol/L (137-145)
[2022-04-13 07:45] LABS: Glucose Point of Care 337 mg/dl (65-105)
[2022-04-13] MEDS: ERTAPENEM 1 GM/NS 50 ML 1 GM/50 ML BAG IVPB (08:53)
[2022-04-13] MEDS: POTASSIUM/PHOSPHORUS/SODIUM 1.5 GM PACKET 2 PACKET PO (08:54)
[2022-04-13] MEDS: ASCORBIC ACID 500 MG TABLET PO ×2 (08:55→20:37)
[2022-04-13] MEDS: MIDODRINE HCL 10 MG TABLET BY MOUTH ×3 (08:55→16:11)
[2022-04-13] MEDS: GABAPENTIN 100 MG CAPSULE 200 MG PO ×2 (08:56→16:12)
[2022-04-13] MEDS: LIPASE/AMYLASE/PROTEASE 12,000 UNITS CAP 2 CAP PO ×3 (08:56→16:11)
[2022-04-13] MEDS: THIAMINE HCL 100 MG TABLET BY MOUTH (08:57)
[2022-04-13] MEDS: FERROUS SULFATE 324 MG TABLET PO ×3 (08:57→16:11)
[2022-04-13] MEDS: CHOLECALCIFEROL 1,000 UNITS TABLET 1000 UNITS BY MOUTH (08:57)
[2022-04-13] MEDS: FOLIC ACID 1 MG TABLET BY MOUTH (08:57)
[2022-04-13] MEDS: MAGNESIUM OXIDE 400 MG TABLET PO (08:57)
[2022-04-13] MEDS: FLUDROCORTISONE ACETATE 0.1 MG TABLET PO (08:57)
[2022-04-13] MEDS: DULoxetine HCL 20 MG CAPSULE.DR PO (08:57)
[2022-04-13] MEDS: TAMSULOSIN HCL 0.4 MG CAPSULE PO (08:57)
[2022-04-13] MEDS: SILVERGEL (ELTA) 45 ML 1 APPLIC TOPICAL (08:58)
[2022-04-13] MEDS: ZINC SULFATE 220 MG CAPSULE PO (08:58)
[2022-04-13] MEDS: INSULIN ASPART (*BKC) 100 UNITS/ML SUB-Q ×3 (08:59→17:30)
[2022-04-13] MEDS: PREGABALIN (*CRX) 75 MG CAPSULE PO ×3 (09:02→16:11)
[2022-04-13] MEDS: POTASSIUM CHLORIDE 20 MEQ TABLET 40 MEQ PO (09:02)
--- NOTE | 2022-04-13 10:46 | PM.IMPN ---
Progress Note: A&P Assessment and Plan (1) Delirium due to general medical condition: Code(s): F05 - Delirium due to known physiological condition Status: Acute Assessment and Plan: ED-HPI narrative: ? This is a 57-year-old assisted patient with a history of recurring UTIs with sepsis with an EGD with a chief complaint of weakness.? The patient is typically a and O x4 but is nonverbal at this point.? He is unable provide any information.? He was febrile assisted and EMS was called. ED-Planning this is a 57-year-old male from assisted with history of recurrent UTIs sepsis presenting ED febrile, tachycardic and hypotensive.? A high suspicion for sepsis at this time.? Full sepsis workup has been ordered.? Patient has been given 30 cc per kg of lactated Ringer's and IV Tylenol. I consulted Infectious Disease pharmacist we agreed the patient should be placed on ceftriaxone and vancomycin due to his history of multi-drug resistant organisms. ? This patient was re-evaluated after his initial fluid bolus and his heart rate has decreased, his blood pressure has increased and his mentation has improved.? Lab work was significant for an elevated white blood cell count, as well as an acute kidney injury without? hyperkalemia.? Urinalysis was indicative of UTI.? It has been sent for urine culture.? The patient will be admitted to the hospital for further management of his sepsis.? The hospitalist, Dr. Howard,? was informed of the negative for patient and has agreed to take the admission.? The patient will be admitted to the [facility] with tele floor. interval history currently patient is quite somnolent unable to provide any review of symptoms or history most of history is recorded from ER chart and after talking with the ER physician Dr. Parikh, will continue ceftriaxone and vancomycin, will follow-up on urine and blood culture identification and and sensitivity and further recommendation to follow, will continue to work with pharmacy id for further recommendation. will have a PT OT evaluate the patient patient will benefit from rehab. 04/10/2022 interval history: today patient is more alert and oriented stats feels muchMuch better compared to when he arrived, most likely patient's symptoms are stemming from sepsis due to UTI, urine and blood cultures are pending, will continue ceftriaxone and vancomycin, will follow-up on urine and blood culture identification and and sensitivity and further recommendation to follow, will continue to work with pharmacy id for further recommendation. upon arrival patient had GERI with BUN and serum creatinine 55/2.4 most likely secondary to dehydration as patient serum creatinine improving 43/1.6 will continue hydrate the patient, kidney ultrasound is essentially normal, will have a PT OT evaluate the patient patient will benefit from rehab. 04/11/2022 interval history: today patient is more alert and oriented stats feels muchMuch better compared to when he arrived, most likely patient's symptoms are stemming from sepsis due to blood cultures Positive for E coli will follow-up on sensitivity, will continue ceftriaxone and vancomycin, urine culture no growth so far, will continue to work with pharmacy id for further recommendation. upon arrival patient had GERI with BUN and serum creatinine 55/2.4 most likely secondary to dehydration as patient serum creatinine improving 38/1.2 will continue hydrate the patient, kidney ultrasound is essentially normal, will have a PT OT evaluate the patient patient will benefit from rehab. 04/12/2022 interval history: today patient is more alert and oriented stats feels much better compared to when he arrived, most likely patient's symptoms are stemming from sepsis due to blood cultures Positive for E coli will follow-up on sensitivity, will continue ceftriaxone and vancomycin, urine culture no growth so far, will continue to work with pharmacy id for further recommend
--- NOTE | 2022-04-13 11:41 | PCPTNOTE ---
Attempted PT evaluation, patient just started eating breakfast and requested therapist return at a later time. RN aware. Will Follow.
[2022-04-13 12:21] LABS: Glucose Point of Care 317 mg/dl (65-105)
--- NOTE | 2022-04-13 15:55 | PC.NURSE ---
On 04/13/22, the Graduate nurse, Michael Gibson, provided care and completed [employer] documentation on this patient. I have reviewed the student's documentation and agree with the findings.
[2022-04-13 15:57] LABS: Albumin Level 2.9 g/dL (3.5-5.1); Anion Gap 13 mmol/L (8-16); Blood Urea Nitrogen 24 mg/dL (9-20); Calcium 7.7 mg/dL (8.4-10.2); Carbon Dioxide 12 mmol/L (22-30); Chloride 109 mmol/L (98-107); Estimated CRCL calculation 49 ml/min; Estimated Glomerular Filt Rate > 60; Glucose 315 mg/dL (65-110); Phosphorus 2.7 mg/dL (2.5-4.5); Potassium 3.5 mmol/L (3.4-5.0); Sodium 134 mmol/L (137-145)
[2022-04-13 17:27] LABS: Glucose Point of Care 322 mg/dl (65-105)
[2022-04-13 20:56] LABS: Glucose Point of Care 341 mg/dl (65-105)
[2022-04-14] VITALS (9 sets, daily range): BP systolic 102–105; BP diastolic 60–75; PULSE 64–107; RESP 16–18; TEMP 36.2–36.8; O2SAT 99–100
[2022-04-14] MEDS: SODIUM CHLORIDE 0.9% IV 1,000 ML 100 ML IV CONT ×2 (05:05→18:55)
[2022-04-14] MEDS: LEVOTHYROXINE SODIUM 75 MCG TABLET PO (05:12)
[2022-04-14 05:45] LABS: Hematocrit 27.6 % (42.0-52.0); Hemoglobin 8.8 g/dL (14.0-18.0); Mean Corpuscular HGB Conc 31.9 g/dl (32-36); Mean Corpuscular Hemoglobin 28.4 pg (26-34); Mean Platelet Volume 10.1 fl (7.4-10.4); Platelet Count Result 145 k/mm3 (150-375); Red Cell Distribution Width 16.1 % (11.5-14.5); White Blood Count 25.3 K/mm3 (4.5-10.0)
[2022-04-14 06:00] LABS: Albumin Level 2.4 g/dL (3.5-5.1); Anion Gap 11 mmol/L (8-16); Blood Urea Nitrogen 20 mg/dL (9-20); Calcium 7.5 mg/dL (8.4-10.2); Carbon Dioxide 13 mmol/L (22-30); Chloride 112 mmol/L (98-107); Estimated CRCL calculation 49 ml/min; Estimated Glomerular Filt Rate > 60; Glucose 368 mg/dL (65-110); Magnesium 1.8 mg/dL (1.6-2.3); Phosphorus 2.5 mg/dL (2.5-4.5); Potassium 2.8 mmol/L (3.4-5.0); Sodium 136 mmol/L (137-145)
[2022-04-14] MEDS: POTASSIUM CHLORIDE INJ 40 MEQ in SODIUM CHLORIDE 0.9% IV 500 ML 130 MEQ IVPB (06:38)
[2022-04-14] MEDS: POTASSIUM CHLORIDE 20 MEQ PACKET (FOR LIQUID) 40 MEQ PO (08:16)
[2022-04-14] MEDS: DULoxetine HCL 20 MG CAPSULE.DR PO (08:16)
[2022-04-14] MEDS: ASCORBIC ACID 500 MG TABLET PO ×2 (08:17→21:49)
[2022-04-14] MEDS: FOLIC ACID 1 MG TABLET BY MOUTH (08:17)
[2022-04-14] MEDS: CHOLECALCIFEROL 1,000 UNITS TABLET 1000 UNITS BY MOUTH (08:17)
[2022-04-14] MEDS: MAGNESIUM OXIDE 400 MG TABLET PO (08:17)
[2022-04-14] MEDS: TAMSULOSIN HCL 0.4 MG CAPSULE PO (08:17)
[2022-04-14] MEDS: FERROUS SULFATE 324 MG TABLET PO ×3 (08:17→17:08)
[2022-04-14] MEDS: THIAMINE HCL 100 MG TABLET BY MOUTH (08:17)
[2022-04-14] MEDS: ZINC SULFATE 220 MG CAPSULE PO (08:17)
[2022-04-14] MEDS: MIDODRINE HCL 10 MG TABLET BY MOUTH ×3 (08:17→17:08)
[2022-04-14] MEDS: LIPASE/AMYLASE/PROTEASE 12,000 UNITS CAP 2 CAP PO ×3 (08:17→17:08)
[2022-04-14] MEDS: GABAPENTIN 100 MG CAPSULE 200 MG PO ×2 (08:17→17:09)
[2022-04-14] MEDS: SODIUM BICARBONATE TAB 650 MG TABLET PO ×2 (08:18→17:09)
[2022-04-14] MEDS: SILVERGEL (ELTA) 45 ML 1 APPLIC TOPICAL (08:18)
[2022-04-14] MEDS: PREGABALIN (*CRX) 75 MG CAPSULE PO ×3 (08:23→17:08)
[2022-04-14] MEDS: ERTAPENEM 1 GM/NS 50 ML 1 GM/50 ML BAG IVPB (08:28)
[2022-04-14] MEDS: INSULIN ASPART (*BKC) 100 UNITS/ML SUB-Q ×3 (08:36→17:17)
[2022-04-14 08:41] LABS: Glucose Point of Care 342 mg/dl (65-105)
[2022-04-14 11:45] LABS: Potassium 3.9 mmol/L (3.4-5.0)
--- NOTE | 2022-04-14 11:48 | PC.NURSE ---
On 04/14/22, the Graduate Nurse, Michael Gibson, provided care and completed [facility] documentation on [facility] patient. I have reviewed the student's documentation and agree with the findings.
[2022-04-14 12:12] LABS: Glucose Point of Care 369 mg/dl (65-105)
--- NOTE | 2022-04-14 12:27 | PM.IMPN ---
Progress Note: A&P Assessment and Plan (1) Delirium due to general medical condition: Code(s): F05 - Delirium due to known physiological condition Status: Acute Assessment and Plan: ED-HPI narrative: ? This is a 57-year-old group home patient with a history of recurring UTIs with sepsis with an EGD with a chief complaint of weakness.? The patient is typically a and O x4 but is nonverbal at this point.? He is unable provide any information.? He was febrile group home and EMS was called. ED-Planning this is a 57-year-old male from group home with history of recurrent UTIs sepsis presenting ED febrile, tachycardic and hypotensive.? A high suspicion for sepsis at this time.? Full sepsis workup has been ordered.? Patient has been given 30 cc per kg of lactated Ringer's and IV Tylenol. I consulted Infectious Disease pharmacist we agreed the patient should be placed on ceftriaxone and vancomycin due to his history of multi-drug resistant organisms. ? This patient was re-evaluated after his initial fluid bolus and his heart rate has decreased, his blood pressure has increased and his mentation has improved.? Lab work was significant for an elevated white blood cell count, as well as an acute kidney injury without? hyperkalemia.? Urinalysis was indicative of UTI.? It has been sent for urine culture.? The patient will be admitted to the hospital for further management of his sepsis.? The hospitalist, Dr. Howard,? was informed of the negative for patient and has agreed to take the admission.? The patient will be admitted to the [facility] with tele floor. interval history currently patient is quite somnolent unable to provide any review of symptoms or history most of history is recorded from ER chart and after talking with the ER physician Dr. Parikh, will continue ceftriaxone and vancomycin, will follow-up on urine and blood culture identification and and sensitivity and further recommendation to follow, will continue to work with pharmacy id for further recommendation. will have a PT OT evaluate the patient patient will benefit from rehab. 04/10/2022 interval history: today patient is more alert and oriented stats feels muchMuch better compared to when he arrived, most likely patient's symptoms are stemming from sepsis due to UTI, urine and blood cultures are pending, will continue ceftriaxone and vancomycin, will follow-up on urine and blood culture identification and and sensitivity and further recommendation to follow, will continue to work with pharmacy id for further recommendation. upon arrival patient had GERI with BUN and serum creatinine 55/2.4 most likely secondary to dehydration as patient serum creatinine improving 43/1.6 will continue hydrate the patient, kidney ultrasound is essentially normal, will have a PT OT evaluate the patient patient will benefit from rehab. 04/11/2022 interval history: today patient is more alert and oriented stats feels muchMuch better compared to when he arrived, most likely patient's symptoms are stemming from sepsis due to blood cultures Positive for E coli will follow-up on sensitivity, will continue ceftriaxone and vancomycin, urine culture no growth so far, will continue to work with pharmacy id for further recommendation. upon arrival patient had GERI with BUN and serum creatinine 55/2.4 most likely secondary to dehydration as patient serum creatinine improving 38/1.2 will continue hydrate the patient, kidney ultrasound is essentially normal, will have a PT OT evaluate the patient patient will benefit from rehab. 04/12/2022 interval history: today patient is more alert and oriented stats feels much better compared to when he arrived, most likely patient's symptoms are stemming from sepsis due to blood cultures Positive for E coli will follow-up on sensitivity, will continue ceftriaxone and vancomycin, urine culture no growth so far, will continue to work with pharmacy id for further recommend
[2022-04-14] MEDS: FLUDROCORTISONE ACETATE 0.1 MG TABLET PO (12:39)
[2022-04-14 16:02] LABS: Anion Gap 10 mmol/L (8-16); Blood Urea Nitrogen 17 mg/dL (9-20); Calcium 7.6 mg/dL (8.4-10.2); Carbon Dioxide 13 mmol/L (22-30); Chloride 110 mmol/L (98-107); Estimated CRCL calculation 55 ml/min; Estimated Glomerular Filt Rate > 60; Glucose 364 mg/dL (65-110); Potassium 3.8 mmol/L (3.4-5.0); Sodium 133 mmol/L (137-145)
[2022-04-14 17:20] LABS: Glucose Point of Care 328 mg/dl (65-105)
[2022-04-14 21:57] LABS: Glucose Point of Care 318 mg/dl (65-105)
[2022-04-15] VITALS (7 sets, daily range): BP systolic 93–103; BP diastolic 59–67; PULSE 63–77; RESP 12–16; TEMP 36.3–36.4; O2SAT 100
[2022-04-15] MEDS: LEVOTHYROXINE SODIUM 75 MCG TABLET PO (05:18)
[2022-04-15] MEDS: SODIUM CHLORIDE 0.9% IV 1,000 ML 100 ML IV CONT (05:18)
[2022-04-15 06:22] LABS: Hematocrit 26.5 % (42.0-52.0); Hemoglobin 8.3 g/dL (14.0-18.0); Mean Corpuscular HGB Conc 31.3 g/dl (32-36); Mean Corpuscular Volume 89.5 fl (80-100); Mean Platelet Volume 9.8 fl (7.4-10.4); Platelet Count Result 177 k/mm3 (150-375); Red Blood Count 2.96 M/mm3 (4.6-6.20); Red Cell Distribution Width 16.5 % (11.5-14.5); White Blood Count 25.3 K/mm3 (4.5-10.0)
[2022-04-15 06:54] LABS: Albumin Level 2.3 g/dL (3.5-5.1); Anion Gap 9 mmol/L (8-16); Blood Urea Nitrogen 14 mg/dL (9-20); Calcium 7.8 mg/dL (8.4-10.2); Carbon Dioxide 14 mmol/L (22-30); Chloride 113 mmol/L (98-107); Estimated CRCL calculation 49 ml/min; Estimated Glomerular Filt Rate > 60; Glucose 321 mg/dL (65-110); Magnesium 1.8 mg/dL (1.6-2.3); Phosphorus 2.5 mg/dL (2.5-4.5); Potassium 2.8 mmol/L (3.4-5.0); Sodium 136 mmol/L (137-145)
[2022-04-15] MEDS: POTASSIUM CHLORIDE INJ 40 MEQ in SODIUM CHLORIDE 0.9% IV 500 ML 130 MEQ IVPB (07:48)
[2022-04-15] MEDS: PREGABALIN (*CRX) 75 MG CAPSULE PO ×3 (08:38→17:24)
[2022-04-15] MEDS: GABAPENTIN 100 MG CAPSULE 200 MG PO ×2 (08:38→17:24)
[2022-04-15] MEDS: CHOLECALCIFEROL 1,000 UNITS TABLET 1000 UNITS BY MOUTH (08:38)
[2022-04-15] MEDS: THIAMINE HCL 100 MG TABLET BY MOUTH (08:38)
[2022-04-15] MEDS: FERROUS SULFATE 324 MG TABLET PO ×3 (08:39→17:24)
[2022-04-15] MEDS: MIDODRINE HCL 10 MG TABLET BY MOUTH ×3 (08:39→17:25)
[2022-04-15] MEDS: FOLIC ACID 1 MG TABLET BY MOUTH (08:39)
[2022-04-15] MEDS: ZINC SULFATE 220 MG CAPSULE PO (08:39)
[2022-04-15] MEDS: POTASSIUM CHLORIDE 20 MEQ PACKET (FOR LIQUID) 40 MEQ PO (08:39)
[2022-04-15] MEDS: DULoxetine HCL 20 MG CAPSULE.DR PO (08:39)
[2022-04-15] MEDS: LIPASE/AMYLASE/PROTEASE 12,000 UNITS CAP 2 CAP PO ×3 (08:39→17:24)
[2022-04-15] MEDS: FLUDROCORTISONE ACETATE 0.1 MG TABLET PO (08:39)
[2022-04-15] MEDS: TAMSULOSIN HCL 0.4 MG CAPSULE PO (08:39)
[2022-04-15] MEDS: SODIUM BICARBONATE TAB 650 MG TABLET PO ×2 (08:39→17:25)
[2022-04-15] MEDS: MAGNESIUM OXIDE 400 MG TABLET PO (08:39)
[2022-04-15] MEDS: ASCORBIC ACID 500 MG TABLET PO ×2 (08:39→20:52)
[2022-04-15] MEDS: ERTAPENEM 1 GM/NS 50 ML 1 GM/50 ML BAG IVPB (08:47)
[2022-04-15] MEDS: INSULIN ASPART (*BKC) 100 UNITS/ML SUB-Q ×3 (08:53→17:23)
[2022-04-15 08:54] LABS: Glucose Point of Care 316 mg/dl (65-105)
[2022-04-15] MEDS: SILVERGEL (ELTA) 45 ML 1 APPLIC TOPICAL (09:56)
--- NOTE | 2022-04-15 11:07 | PCNFU ---
Nutrition Follow-Up Complete: Increased Nutrient needs as related to wounds as evidenced by Pressure ulcers noted. Goal: Adequate Intake of at least 75% of meals/supplements Patient is progressing towards goal. Pt current nutrition is DBCC. Last recorded weight is 48.6 kg, stable Bowel Motility: +BM reported 04/15 Labs Reviewed:Glu 321, Na 136, Hct 26.5,Hgb 8.3,K 2.8 Meds Noted:Zinc, Thiamine, Vit D, Ferrous Sulfate, KCL powder, Synthroid, NovoLog,Cymbalta Skin: stage II pressure ulcer-ankle Additional Notes: Patient seen today for nutrition follow up. Currently tolerating diabetic diet. Diet supplements of Glucerna shake TID providing an additional 220 kcals and 10 gms protein. Sincere BID for wound healing is providing an additional 90 kcals and 2.5 gms protein. Agree with diet orders. Monitoring: RD will monitor every 5 days.
[2022-04-15 12:13] LABS: Glucose Point of Care 294 mg/dl (65-105)
--- NOTE | 2022-04-15 12:42 | PM.IMPN ---
Progress Note: A&P Assessment and Plan (1) Delirium due to general medical condition: Code(s): F05 - Delirium due to known physiological condition Status: Acute Assessment and Plan: Improved (2) Sepsis: Code(s): A41.9 - Sepsis, unspecified organism Status: Acute Assessment and Plan: upon arrival patient met the criteria for sepsis with fever, elevated lactic acid, elevated white count, acute mental status change, and possible source of infection UTI will follow-up on blood culture. (3) Acute kidney injury: Code(s): N17.9 - Acute kidney failure, unspecified Status: Acute Assessment and Plan: Creatinine 1.0 (4) UTI (urinary tract infection) due to urinary indwelling Ellison catheter: Code(s): T83.511A - Infection and inflammatory reaction due to indwelling urethral catheter, initial encounter; N39.0 - Urinary tract infection, site not specified Status: Acute Assessment and Plan: Antibiotics for UTI Subjective Date/time seen: 04/15/22 12:42 No complaints Exam Narrative: under nourished Patient is comfortable, NAD HEENT: eyes are clear and none icteric LUNGS: normal respiratory effort ABD: not distended Lower extremities: no edema SKIN: nonjaundiced Neuro: grossly intact. Objective Data Vital Signs Vital Signs: Vital Signs - 24 hr 04/14/22 13:51 04/14/22 16:00 04/14/22 19:58 Temperature 97.5 F L 97.1 F L Pulse Rate 64 64 107 H Respiratory Rate 16 18 Blood Pressure 105/75 102/60 Pulse Oximetry 100 100 04/14/22 20:00 04/15/22 00:00 04/15/22 04:22 Temperature 97.6 F Pulse Rate 66 66 67 Respiratory Rate 16 Blood Pressure 102/66 Pulse Oximetry 100 04/15/22 04:00 04/15/22 08:00 04/15/22 12:03 Temperature Pulse Rate 68 66 71 Respiratory Rate Blood Pressure Pulse Oximetry Intake/Output Intake/Output: Intake & Output 04/12/22 04/13/22 04/14/22 04/15/22 23:59 23:59 23:59 23:59 Intake Total 7609 1931 4360 1410 Output Total 2125 1200 2600 800 Balance 2534 2241 1760 610 Meds/Results Medications: Active Medications Generic Name Dose Route Start Last Admin Trade Name Freq PRN Reason Stop Dose Admin Acetaminophen 650 mg 04/10/22 01:39 Acetaminophen 325 Mg Tablet PO Q6H PRN Fever > 100.4 Acetaminophen 1,000 mg 04/10/22 08:36 04/12/22 20:59 Acetaminophen 500 Mg Tablet PO 1,000 mg Q6H PRN Administration Mild to moderate pain Lipase/Protease/Amylase 2 cap 04/10/22 08:45 04/15/22 12:06 Lipase/Amylase/Protease 12,000 Units Cap PO 2 cap TIDWM CINDY Administration Ascorbic Acid 500 mg 04/10/22 09:00 04/15/22 08:39 Ascorbic Acid 500 Mg Tablet PO 500 mg Q12HR CINDY Administration Dextrose 12.5 gm 04/10/22 08:21 Dextrose 50% 25 Gm/50 Ml Syringe IV PUSH PRN PRN Hypoglycemia Protocol Duloxetine HCl 20 mg 04/10/22 09:00 04/15/22 08:39 Duloxetine Hcl 20 Mg Capsule.Dr PO 20 mg QAM CINDY Administration Ergocalciferol 50,000 unit 04/12/22 09:00 04/12/22 09:03 Ergocalciferol 50,000 Unit Capsule PO 50,000 unit Sher@0900 CINDY Administration Ferrous Sulfate 324 mg 04/10/22 08:00 04/15/22 12:06 Ferrous Sulfate 324 Mg Tablet PO 324 mg TIDWM CINDY Administration Fludrocortisone Acetate 0.1 mg 04/10/22 08:45 04/15/22 08:39 Fludrocortisone Acetate 0.1 Mg Tablet PO 0.1 mg DAILY@0800 CINDY Administration Folic Acid 1 mg 04/10/22 09:00 04/15/22 08:39 Folic Acid 1 Mg Tablet BY MOUTH 1 mg DAILY CINDY Administration Gabapentin 200 mg 04/10/22 09:00 04/15/22 08:38 Gabapentin 100 Mg Capsule PO 200 mg BID CINDY Administration Glucagon 1 mg 04/10/22 08:21 Glucagon For Inj 1 Mg Vial IM PRN PRN Hypoglycemia Protocol Glucose 15 gm 04/10/22 08:21 Glucose Oral Gel 15 Gm Of Glucse In 37.5 Gm Tube PO PRN PRN Hypoglycemia Protocol Dextrose 1,000
[2022-04-15 16:51] LABS: Glucose Point of Care 320 mg/dl (65-105)
[2022-04-15 18:26] LABS: Potassium 3.2 mmol/L (3.4-5.0)
[2022-04-16 03:16] LABS: Glucose Point of Care 369 mg/dl (65-105)
[2022-04-16 05:43] VITALS: BP 95/56; PULSE 64; RESP 12; TEMP 36.4; O2SAT 100
[2022-04-16] MEDS: LEVOTHYROXINE SODIUM 75 MCG TABLET PO (06:18)
[2022-04-16 06:31] LABS: Hematocrit 26.5 % (42.0-52.0); Hemoglobin 8.4 g/dL (14.0-18.0); Mean Corpuscular HGB Conc 31.7 g/dl (32-36); Mean Corpuscular Hemoglobin 28.1 pg (26-34); Mean Corpuscular Volume 88.6 fl (80-100); Mean Platelet Volume 10.1 fl (7.4-10.4); Platelet Count Result 187 k/mm3 (150-375); Red Blood Count 2.99 M/mm3 (4.6-6.20); Red Cell Distribution Width 16.3 % (11.5-14.5); White Blood Count 22.4 K/mm3 (4.5-10.0)
[2022-04-16 06:59] LABS: Albumin Level 2.3 g/dL (3.5-5.1); Anion Gap 7 mmol/L (8-16); Blood Urea Nitrogen 14 mg/dL (9-20); Calcium 7.9 mg/dL (8.4-10.2); Carbon Dioxide 17 mmol/L (22-30); Chloride 112 mmol/L (98-107); Estimated CRCL calculation 55 ml/min; Estimated Glomerular Filt Rate > 60; Glucose 359 mg/dL (65-110); Magnesium 1.9 mg/dL (1.6-2.3); Phosphorus 2.5 mg/dL (2.5-4.5); Potassium 2.9 mmol/L (3.4-5.0); Sodium 136 mmol/L (137-145)
[2022-04-16 08:32] LABS: Glucose Point of Care 337 mg/dl (65-105)
[2022-04-16] MEDS: FERROUS SULFATE 324 MG TABLET PO ×3 (08:43→17:06)
[2022-04-16] MEDS: SODIUM BICARBONATE TAB 650 MG TABLET PO ×2 (08:43→17:10)
[2022-04-16] MEDS: DULoxetine HCL 20 MG CAPSULE.DR PO (08:43)
[2022-04-16] MEDS: FOLIC ACID 1 MG TABLET BY MOUTH (08:43)
[2022-04-16] MEDS: CHOLECALCIFEROL 1,000 UNITS TABLET 1000 UNITS BY MOUTH (08:44)
[2022-04-16] MEDS: MIDODRINE HCL 10 MG TABLET BY MOUTH ×3 (08:44→17:08)
[2022-04-16] MEDS: GABAPENTIN 100 MG CAPSULE 200 MG PO ×2 (08:44→17:08)
[2022-04-16] MEDS: MAGNESIUM OXIDE 400 MG TABLET PO (08:44)
[2022-04-16] MEDS: FLUDROCORTISONE ACETATE 0.1 MG TABLET PO (08:44)
[2022-04-16] MEDS: PREGABALIN (*CRX) 75 MG CAPSULE PO ×3 (08:44→17:10)
[2022-04-16] MEDS: ZINC SULFATE 220 MG CAPSULE PO (08:44)
[2022-04-16] MEDS: LIPASE/AMYLASE/PROTEASE 12,000 UNITS CAP 2 CAP PO ×3 (08:44→17:09)
[2022-04-16] MEDS: THIAMINE HCL 100 MG TABLET BY MOUTH (08:44)
[2022-04-16] MEDS: TAMSULOSIN HCL 0.4 MG CAPSULE PO (08:44)
[2022-04-16] MEDS: POTASSIUM CHLORIDE 20 MEQ PACKET (FOR LIQUID) 40 MEQ PO ×3 (08:45→17:09)
[2022-04-16] MEDS: ASCORBIC ACID 500 MG TABLET PO ×2 (08:46→20:52)
[2022-04-16] MEDS: INSULIN ASPART (*BKC) 100 UNITS/ML SUB-Q ×3 (08:52→17:14)
[2022-04-16] MEDS: SILVERGEL (ELTA) 45 ML 1 APPLIC TOPICAL (08:57)
[2022-04-16] MEDS: ERTAPENEM 1 GM/NS 50 ML 1 GM/50 ML BAG IVPB (09:00)
--- NOTE | 2022-04-16 11:37 | PM.IMPN ---
Progress Note: A&P Assessment and Plan (1) Delirium due to general medical condition: Code(s): F05 - Delirium due to known physiological condition Status: Acute Assessment and Plan: Improved (2) Sepsis: Code(s): A41.9 - Sepsis, unspecified organism Status: Acute Assessment and Plan: upon arrival patient met the criteria for sepsis with fever, elevated lactic acid, elevated white count, acute mental status change, and possible source of infection UTI will follow-up on blood culture. (3) Acute kidney injury: Code(s): N17.9 - Acute kidney failure, unspecified Status: Acute Assessment and Plan: Creatinine 1.0 (4) UTI (urinary tract infection) due to urinary indwelling Ellison catheter: Code(s): T83.511A - Infection and inflammatory reaction due to indwelling urethral catheter, initial encounter; N39.0 - Urinary tract infection, site not specified Status: Acute Assessment and Plan: Antibiotics for UTI Subjective Date/time seen: 04/16/22 11:37 No complaints Exam Narrative: under nourished Patient is comfortable, NAD HEENT: eyes are clear and none icteric LUNGS: normal respiratory effort ABD: not distended Lower extremities: no edema SKIN: nonjaundiced Neuro: grossly intact. Objective Data Vital Signs Vital Signs: Vital Signs - 24 hr 04/15/22 12:03 04/15/22 14:40 04/15/22 19:58 Temperature 97.3 F L 97.6 F Pulse Rate 71 63 77 Respiratory Rate 16 12 Blood Pressure 103/67 93/59 L Pulse Oximetry 100 100 04/16/22 05:43 Temperature 97.6 F Pulse Rate 64 Respiratory Rate 12 Blood Pressure 95/56 L Pulse Oximetry 100 Intake/Output Intake/Output: Intake & Output 04/13/22 04/14/22 04/15/22 04/16/22 23:59 23:59 23:59 23:59 Intake Total 3441 4360 3550 Output Total 1200 2600 1500 1400 Balance 2241 1760 2050 -1400 Meds/Results Medications: Active Medications Generic Name Dose Route Start Last Admin Trade Name Freq PRN Reason Stop Dose Admin Acetaminophen 650 mg 04/10/22 01:39 Acetaminophen 325 Mg Tablet PO Q6H PRN Fever > 100.4 Acetaminophen 1,000 mg 04/10/22 08:36 04/12/22 20:59 Acetaminophen 500 Mg Tablet PO 1,000 mg Q6H PRN Administration Mild to moderate pain Lipase/Protease/Amylase 2 cap 04/10/22 08:45 04/16/22 08:44 Lipase/Amylase/Protease 12,000 Units Cap PO 2 cap TIDWM CINDY Administration Ascorbic Acid 500 mg 04/10/22 09:00 04/16/22 08:46 Ascorbic Acid 500 Mg Tablet PO 500 mg Q12HR CINDY Administration Dextrose 12.5 gm 04/10/22 08:21 Dextrose 50% 25 Gm/50 Ml Syringe IV PUSH PRN PRN Hypoglycemia Protocol Duloxetine HCl 20 mg 04/10/22 09:00 04/16/22 08:43 Duloxetine Hcl 20 Mg Capsule.Dr PO 20 mg QAM CINDY Administration Ergocalciferol 50,000 unit 04/12/22 09:00 04/12/22 09:03 Ergocalciferol 50,000 Unit Capsule PO 50,000 unit Sher@0900 CINDY Administration Ferrous Sulfate 324 mg 04/10/22 08:00 04/16/22 08:43 Ferrous Sulfate 324 Mg Tablet PO 324 mg TIDWM CINDY Administration Fludrocortisone Acetate 0.1 mg 04/10/22 08:45 04/16/22 08:44 Fludrocortisone Acetate 0.1 Mg Tablet PO 0.1 mg DAILY@0800 CINDY Administration Folic Acid 1 mg 04/10/22 09:00 04/16/22 08:43 Folic Acid 1 Mg Tablet BY MOUTH 1 mg DAILY CINDY Administration Gabapentin 200 mg 04/10/22 09:00 04/16/22 08:44 Gabapentin 100 Mg Capsule PO 200 mg BID CINDY Administration Glucagon 1 mg 04/10/22 08:21 Glucagon For Inj 1 Mg Vial IM PRN PRN Hypoglycemia Protocol Glucose 15 gm 04/10/22 08:21 Glucose Oral Gel 15 Gm Of Glucse In 37.5 Gm Tube PO PRN PRN Hypoglycemia Protocol Dextrose 1,000 mls @ 100 mls/hr 04/10/22 08:21 Dextrose 5% 1,000 Ml IVPB PRN PRN Hypoglycemia Protocol Ertapenem 1 gm in 50 mls @ 100 mls/hr 04/13/22 09:00 04/16/22 09:00 Invanz 1 Gm
[2022-04-16 14:20] VITALS: BP 111/69; PULSE 55; RESP 16; TEMP 36.3; O2SAT 100
[2022-04-16 15:01] LABS: Glucose Point of Care 379 mg/dl (65-105)
[2022-04-16 17:59] LABS: Glucose Point of Care 326 mg/dl (65-105)
[2022-04-16 20:36] VITALS: BP 103/54; PULSE 66; RESP 12; TEMP 36.4; O2SAT 100
[2022-04-16 23:11] LABS: Glucose Point of Care 280 mg/dl (65-105)
[2022-04-17 03:27] VITALS: BP 95/58; PULSE 66; RESP 12; TEMP 36.4; O2SAT 100
[2022-04-17 05:42] LABS: Hematocrit 27.3 % (42.0-52.0); Hemoglobin 8.6 g/dL (14.0-18.0); Mean Corpuscular HGB Conc 31.5 g/dl (32-36); Mean Corpuscular Hemoglobin 28.4 pg (26-34); Mean Corpuscular Volume 90.1 fl (80-100); Mean Platelet Volume 9.9 fl (7.4-10.4); Platelet Count Result 191 k/mm3 (150-375); Red Blood Count 3.03 M/mm3 (4.6-6.20); Red Cell Distribution Width 16.3 % (11.5-14.5); White Blood Count 20.8 K/mm3 (4.5-10.0)
[2022-04-17 05:56] LABS: Albumin Level 2.5 g/dL (3.5-5.1); Anion Gap 10 mmol/L (8-16); Blood Urea Nitrogen 19 mg/dL (9-20); Calcium 8.3 mg/dL (8.4-10.2); Carbon Dioxide 19 mmol/L (22-30); Chloride 110 mmol/L (98-107); Estimated CRCL calculation 55 ml/min; Estimated Glomerular Filt Rate > 60; Glucose 287 mg/dL (65-110); Magnesium 1.9 mg/dL (1.6-2.3); Phosphorus 2.6 mg/dL (2.5-4.5); Sodium 139 mmol/L (137-145)
[2022-04-17] MEDS: LEVOTHYROXINE SODIUM 75 MCG TABLET PO (06:06)
[2022-04-17 08:10] LABS: Glucose Point of Care 298 mg/dl (65-105)
[2022-04-17] MEDS: ERTAPENEM 1 GM/NS 50 ML 1 GM/50 ML BAG IVPB (08:26)
[2022-04-17] MEDS: LIPASE/AMYLASE/PROTEASE 12,000 UNITS CAP 2 CAP PO ×3 (08:27→17:04)
[2022-04-17] MEDS: FOLIC ACID 1 MG TABLET BY MOUTH (08:27)
[2022-04-17] MEDS: MIDODRINE HCL 10 MG TABLET BY MOUTH ×3 (08:27→17:05)
[2022-04-17] MEDS: POTASSIUM CHLORIDE 20 MEQ PACKET (FOR LIQUID) 40 MEQ PO (08:28)
[2022-04-17] MEDS: DULoxetine HCL 20 MG CAPSULE.DR PO (08:29)
[2022-04-17] MEDS: FERROUS SULFATE 324 MG TABLET PO ×3 (08:29→17:05)
[2022-04-17] MEDS: CHOLECALCIFEROL 1,000 UNITS TABLET 1000 UNITS BY MOUTH (08:29)
[2022-04-17] MEDS: GABAPENTIN 100 MG CAPSULE 200 MG PO ×2 (08:29→17:05)
[2022-04-17] MEDS: SODIUM BICARBONATE TAB 650 MG TABLET PO ×2 (08:29→17:05)
[2022-04-17] MEDS: THIAMINE HCL 100 MG TABLET BY MOUTH (08:30)
[2022-04-17] MEDS: FLUDROCORTISONE ACETATE 0.1 MG TABLET PO (08:30)
[2022-04-17] MEDS: TAMSULOSIN HCL 0.4 MG CAPSULE PO (08:30)
[2022-04-17] MEDS: MAGNESIUM OXIDE 400 MG TABLET PO (08:30)
[2022-04-17] MEDS: ASCORBIC ACID 500 MG TABLET PO ×2 (08:30→21:22)
[2022-04-17] MEDS: ZINC SULFATE 220 MG CAPSULE PO (08:30)
[2022-04-17] MEDS: PREGABALIN (*CRX) 75 MG CAPSULE PO ×3 (08:30→17:05)
[2022-04-17] MEDS: INSULIN ASPART (*BKC) 100 UNITS/ML SUB-Q ×3 (08:31→17:05)
[2022-04-17] MEDS: POTASSIUM CHLORIDE 20 MEQ PACKET (FOR LIQUID) 80 MEQ PO (08:31)
[2022-04-17] MEDS: SILVERGEL (ELTA) 45 ML 1 APPLIC TOPICAL (08:41)
[2022-04-17 12:07] LABS: Glucose Point of Care 341 mg/dl (65-105)
[2022-04-17 12:39] LABS: Potassium 3.3 mmol/L (3.4-5.0)
--- NOTE | 2022-04-17 13:13 | PM.IMPN ---
Progress Note: A&P Assessment and Plan (1) Delirium due to general medical condition: Code(s): F05 - Delirium due to known physiological condition Status: Acute Assessment and Plan: Improved (2) Sepsis: Code(s): A41.9 - Sepsis, unspecified organism Status: Acute Assessment and Plan: upon arrival patient met the criteria for sepsis with fever, elevated lactic acid, elevated white count, acute mental status change, and possible source of infection UTI will follow-up on blood culture. Continue antibiotics (3) Acute kidney injury: Code(s): N17.9 - Acute kidney failure, unspecified Status: Acute Assessment and Plan: Creatinine 1.0 (4) UTI (urinary tract infection) due to urinary indwelling Ellison catheter: Code(s): T83.511A - Infection and inflammatory reaction due to indwelling urethral catheter, initial encounter; N39.0 - Urinary tract infection, site not specified Status: Acute Assessment and Plan: Antibiotics for UTI (5) Electrolyte abnormality: Code(s): E87.8 - Other disorders of electrolyte and fluid balance, not elsewhere classified Status: Acute Assessment and Plan: Hypokalemia. Replace. Monitor. Once above 3.5 patient can be discharged Subjective Date/time seen: 04/17/22 13:13 No complaints potassium still low Exam Narrative: under nourished Patient is comfortable, NAD HEENT: eyes are clear and none icteric LUNGS: normal respiratory effort ABD: not distended Lower extremities: no edema SKIN: nonjaundiced Neuro: grossly intact. Objective Data Vital Signs Vital Signs: Vital Signs - 24 hr 04/16/22 14:20 04/16/22 20:36 04/16/22 20:50 Temperature 97.3 F L 97.6 F Pulse Rate 55 L 66 Respiratory Rate 16 12 Blood Pressure 111/69 103/54 L Pulse Oximetry 100 100 Oxygen Delivery Room Air 04/17/22 03:27 04/17/22 08:30 Temperature 97.6 F Pulse Rate 66 Respiratory Rate 12 Blood Pressure 95/58 L Pulse Oximetry 100 Oxygen Delivery Room Air Intake/Output Intake/Output: Intake & Output 04/14/22 04/15/22 04/16/22 04/17/22 23:59 23:59 23:59 23:59 Intake Total 4360 3550 860 820 Output Total 2600 1500 2550 500 Balance 1760 2050 -1690 320 Meds/Results Medications: Active Medications Generic Name Dose Route Start Last Admin Trade Name Freq PRN Reason Stop Dose Admin Acetaminophen 650 mg 04/10/22 01:39 Acetaminophen 325 Mg Tablet PO Q6H PRN Fever > 100.4 Acetaminophen 1,000 mg 04/10/22 08:36 04/12/22 20:59 Acetaminophen 500 Mg Tablet PO 1,000 mg Q6H PRN Administration Mild to moderate pain Lipase/Protease/Amylase 2 cap 04/10/22 08:45 04/17/22 12:15 Lipase/Amylase/Protease 12,000 Units Cap PO 2 cap TIDWM CINDY Administration Ascorbic Acid 500 mg 04/10/22 09:00 04/17/22 08:30 Ascorbic Acid 500 Mg Tablet PO 500 mg Q12HR CINDY Administration Dextrose 12.5 gm 04/10/22 08:21 Dextrose 50% 25 Gm/50 Ml Syringe IV PUSH PRN PRN Hypoglycemia Protocol Duloxetine HCl 20 mg 04/10/22 09:00 04/17/22 08:29 Duloxetine Hcl 20 Mg Capsule.Dr PO 20 mg QAM CINDY Administration Ergocalciferol 50,000 unit 04/12/22 09:00 04/12/22 09:03 Ergocalciferol 50,000 Unit Capsule PO 50,000 unit Sher@0900 CINDY Administration Ferrous Sulfate 324 mg 04/10/22 08:00 04/17/22 12:15 Ferrous Sulfate 324 Mg Tablet PO 324 mg TIDWM CINDY Administration Fludrocortisone Acetate 0.1 mg 04/10/22 08:45 04/17/22 08:30 Fludrocortisone Acetate 0.1 Mg Tablet PO 0.1 mg DAILY@0800 CINDY Administration Folic Acid 1 mg 04/10/22 09:00 04/17/22 08:27 Folic Acid 1 Mg Tablet BY MOUTH 1 mg DAILY CINDY Administration Gabapentin 200 mg 04/10/22 09:00 04/17/22 08:29 Gabapentin 100 Mg Capsule PO 200 mg BID CINDY Administration Glucagon 1 mg 04/10/22 08:21 Glucagon For Inj 1 Mg Vial IM PRN PRN Hypo
[2022-04-17] MEDS: POTASSIUM CHLORIDE 20 MEQ TABLET 40 MEQ PO ×2 (13:27→21:22)
[2022-04-17 14:06] VITALS: BP 112/52; PULSE 68; RESP 16; TEMP 36.4; O2SAT 99
[2022-04-17 16:57] LABS: Glucose Point of Care 324 mg/dl (65-105)
[2022-04-17] MEDS: NICOTINE (*PBKC) 14 MG PATCH 1 PATCH TRANSDERM (17:08)
[2022-04-17 21:27] VITALS: BP 104/60; PULSE 70; RESP 21; TEMP 36.2; O2SAT 100
[2022-04-17 22:32] LABS: Glucose Point of Care 268 mg/dl (65-105)
[2022-04-18 06:14] VITALS: BP 106/55; PULSE 70; RESP 20; TEMP 36.6; O2SAT 99
[2022-04-18 06:23] LABS: Hematocrit 28.1 % (42.0-52.0); Hemoglobin 8.5 g/dL (14.0-18.0); Mean Corpuscular HGB Conc 30.2 g/dl (32-36); Mean Corpuscular Hemoglobin 27.7 pg (26-34); Mean Corpuscular Volume 91.5 fl (80-100); Mean Platelet Volume 10.1 fl (7.4-10.4); Platelet Count Result 191 k/mm3 (150-375); Red Blood Count 3.07 M/mm3 (4.6-6.20); Red Cell Distribution Width 16.4 % (11.5-14.5); White Blood Count 21.5 K/mm3 (4.5-10.0)
[2022-04-18 06:35] LABS: Albumin Level 2.8 g/dL (3.5-5.1); Anion Gap 7 mmol/L (8-16); Blood Urea Nitrogen 15 mg/dL (9-20); Calcium 8.2 mg/dL (8.4-10.2); Carbon Dioxide 21 mmol/L (22-30); Chloride 110 mmol/L (98-107); Estimated CRCL calculation 49 ml/min; Estimated Glomerular Filt Rate > 60; Glucose 303 mg/dL (65-110); Magnesium 1.9 mg/dL (1.6-2.3); Phosphorus 2.5 mg/dL (2.5-4.5); Potassium 3.6 mmol/L (3.4-5.0); Sodium 138 mmol/L (137-145)
[2022-04-18 08:12] LABS: Glucose Point of Care 308 mg/dl (65-105)
[2022-04-18] MEDS: INSULIN ASPART (*BKC) 100 UNITS/ML SUB-Q ×3 (08:39→17:36)
[2022-04-18] MEDS: PREGABALIN (*CRX) 75 MG CAPSULE PO ×3 (08:53→18:04)
[2022-04-18] MEDS: ZINC SULFATE 220 MG CAPSULE PO (08:54)
[2022-04-18] MEDS: FERROUS SULFATE 324 MG TABLET PO ×2 (08:54→18:04)
[2022-04-18] MEDS: GABAPENTIN 100 MG CAPSULE 200 MG PO ×2 (08:55→18:05)
[2022-04-18] MEDS: CHOLECALCIFEROL 1,000 UNITS TABLET 1000 UNITS BY MOUTH (08:55)
[2022-04-18] MEDS: FOLIC ACID 1 MG TABLET BY MOUTH (08:55)
[2022-04-18] MEDS: FLUDROCORTISONE ACETATE 0.1 MG TABLET PO (08:55)
[2022-04-18] MEDS: ASCORBIC ACID 500 MG TABLET PO ×2 (08:55→20:59)
[2022-04-18] MEDS: TAMSULOSIN HCL 0.4 MG CAPSULE PO (08:55)
[2022-04-18] MEDS: MAGNESIUM OXIDE 400 MG TABLET PO (08:55)
[2022-04-18] MEDS: MIDODRINE HCL 10 MG TABLET BY MOUTH ×3 (08:56→18:04)
[2022-04-18] MEDS: THIAMINE HCL 100 MG TABLET BY MOUTH (08:56)
[2022-04-18] MEDS: SODIUM BICARBONATE TAB 650 MG TABLET PO ×2 (08:56→18:04)
[2022-04-18] MEDS: LIPASE/AMYLASE/PROTEASE 12,000 UNITS CAP 2 CAP PO ×3 (08:56→18:04)
[2022-04-18] MEDS: DULoxetine HCL 20 MG CAPSULE.DR PO (08:56)
[2022-04-18] MEDS: NICOTINE (*PBKC) 14 MG PATCH 1 PATCH TRANSDERM (08:57)
[2022-04-18] MEDS: ERTAPENEM 1 GM/NS 50 ML 1 GM/50 ML BAG IVPB (08:58)
[2022-04-18] MEDS: SILVERGEL (ELTA) 45 ML 1 APPLIC TOPICAL (09:00)
[2022-04-18] MEDS: POTASSIUM CHLORIDE 20 MEQ PACKET (FOR LIQUID) 80 MEQ PO (09:50)
--- NOTE | 2022-04-18 10:57 | PM.IMPN ---
Progress Note: A&P Assessment and Plan (1) Delirium due to general medical condition: Code(s): F05 - Delirium due to known physiological condition Status: Acute Assessment and Plan: Improved (2) Sepsis: Code(s): A41.9 - Sepsis, unspecified organism Status: Acute Assessment and Plan: upon arrival patient met the criteria for sepsis with fever, elevated lactic acid, elevated white count, acute mental status change, and possible source of infection UTI will follow-up on blood culture. Continue antibiotics (3) Acute kidney injury: Code(s): N17.9 - Acute kidney failure, unspecified Status: Acute Assessment and Plan: Creatinine 1.0 (4) UTI (urinary tract infection) due to urinary indwelling Ellison catheter: Code(s): T83.511A - Infection and inflammatory reaction due to indwelling urethral catheter, initial encounter; N39.0 - Urinary tract infection, site not specified Status: Acute Assessment and Plan: Antibiotics for UTI (5) Electrolyte abnormality: Code(s): E87.8 - Other disorders of electrolyte and fluid balance, not elsewhere classified Status: Acute Assessment and Plan: Hypokalemia. Replace. Monitor. Once above 3.5 patient can be discharged (6) Leukocytosis: Code(s): D72.829 - Elevated white blood cell count, unspecified Status: Acute Assessment and Plan: Will order CT scan of abdomen. Subjective Date/time seen: 04/18/22 10:57 No complaints Exam Narrative: under nourished Patient is comfortable, NAD HEENT: eyes are clear and none icteric LUNGS: normal respiratory effort ABD: not distended Lower extremities: no edema SKIN: nonjaundiced Neuro: grossly intact. Objective Data Vital Signs Vital Signs: Vital Signs - 24 hr 04/17/22 14:06 04/17/22 21:27 04/17/22 20:00 Temperature 97.5 F L 97.1 F L Pulse Rate 68 70 Respiratory Rate 16 21 H Blood Pressure 112/52 L 104/60 Pulse Oximetry 99 100 Oxygen Delivery Room Air 04/18/22 06:14 Temperature 97.8 F Pulse Rate 70 Respiratory Rate 20 Blood Pressure 106/55 L Pulse Oximetry 99 Oxygen Delivery Intake/Output Intake/Output: Intake & Output 04/15/22 04/16/22 04/17/22 04/18/22 23:59 23:59 23:59 23:59 Intake Total 3550 860 1530 540 Output Total 1500 2550 1500 500 Balance 2050 -1690 30 40 Meds/Results Medications: Active Medications Generic Name Dose Route Start Last Admin Trade Name Freq PRN Reason Stop Dose Admin Acetaminophen 650 mg 04/10/22 01:39 Acetaminophen 325 Mg Tablet PO Q6H PRN Fever > 100.4 Acetaminophen 1,000 mg 04/10/22 08:36 04/12/22 20:59 Acetaminophen 500 Mg Tablet PO 1,000 mg Q6H PRN Administration Mild to moderate pain Lipase/Protease/Amylase 2 cap 04/10/22 08:45 04/18/22 08:56 Lipase/Amylase/Protease 12,000 Units Cap PO 2 cap TIDWM CINDY Administration Ascorbic Acid 500 mg 04/10/22 09:00 04/18/22 08:55 Ascorbic Acid 500 Mg Tablet PO 500 mg Q12HR CINDY Administration Dextrose 12.5 gm 04/10/22 08:21 Dextrose 50% 25 Gm/50 Ml Syringe IV PUSH PRN PRN Hypoglycemia Protocol Duloxetine HCl 20 mg 04/10/22 09:00 04/18/22 08:56 Duloxetine Hcl 20 Mg Capsule.Dr PO 20 mg QAM CINDY Administration Ergocalciferol 50,000 unit 04/12/22 09:00 04/12/22 09:03 Ergocalciferol 50,000 Unit Capsule PO 50,000 unit Sher@0900 CINDY Administration Ferrous Sulfate 324 mg 04/10/22 08:00 04/18/22 08:54 Ferrous Sulfate 324 Mg Tablet PO 324 mg TIDWM CINDY Administration Fludrocortisone Acetate 0.1 mg 04/10/22 08:45 04/18/22 08:55 Fludrocortisone Acetate 0.1 Mg Tablet PO 0.1 mg DAILY@0800 CINDY Administration Folic Acid 1 mg 04/10/22 09:00 04/18/22 08:55 Folic Acid 1 Mg Tablet BY MOUTH 1 mg DAILY CINDY Administration Gabapentin 200 mg 04/10/22 09:00 04/18/22 08:55 Gabapentin 100 Mg Capsule PO 20
[2022-04-18 12:13] LABS: Glucose Point of Care 314 mg/dl (65-105)
--- NOTE | 2022-04-18 13:00 | PCPTNOTE ---
Attempted to see patient for PT treatment; per RN patient is preparing to leave floor for testing.
[2022-04-18 14:36] VITALS: BP 117/63; PULSE 61; RESP 16; TEMP 36.2; O2SAT 100
[2022-04-18 15:10] LABS: Glucose Point of Care 302 mg/dl (65-105)
[2022-04-18 17:13] LABS: Glucose Point of Care 287 mg/dl (65-105)
[2022-04-18 21:22] LABS: Glucose Point of Care 306 mg/dl (65-105)
[2022-04-18 22:46] VITALS: BP 111/69; PULSE 61; RESP 21; TEMP 36.2; O2SAT 100
[2022-04-19 05:40] LABS: Hematocrit 28.2 % (42.0-52.0); Hemoglobin 8.6 g/dL (14.0-18.0); Mean Corpuscular HGB Conc 30.5 g/dl (32-36); Mean Corpuscular Hemoglobin 28.1 pg (26-34); Mean Corpuscular Volume 92.2 fl (80-100); Mean Platelet Volume 10.1 fl (7.4-10.4); Platelet Count Result 206 k/mm3 (150-375); Red Blood Count 3.06 M/mm3 (4.6-6.20); Red Cell Distribution Width 16.5 % (11.5-14.5); White Blood Count 20.4 K/mm3 (4.5-10.0)
[2022-04-19 05:44] LABS: Albumin Level 2.7 g/dL (3.5-5.1); Anion Gap 10 mmol/L (8-16); Blood Urea Nitrogen 14 mg/dL (9-20); Calcium 8.6 mg/dL (8.4-10.2); Carbon Dioxide 21 mmol/L (22-30); Chloride 105 mmol/L (98-107); Estimated CRCL calculation 55 ml/min; Estimated Glomerular Filt Rate > 60; Glucose 332 mg/dL (65-110); Magnesium 1.9 mg/dL (1.6-2.3); Phosphorus 2.9 mg/dL (2.5-4.5); Potassium 3.4 mmol/L (3.4-5.0); Sodium 136 mmol/L (137-145)
[2022-04-19 06:00] VITALS: BP 103/61; PULSE 63; RESP 21; TEMP 36.1; O2SAT 100
[2022-04-19] MEDS: LEVOTHYROXINE SODIUM 75 MCG TABLET PO (06:17)
[2022-04-19 08:32] LABS: Glucose Point of Care 347 mg/dl (65-105)
[2022-04-19 08:34] VITALS: PULSE 58; O2SAT 99
[2022-04-19] MEDS: ERTAPENEM 1 GM/NS 50 ML 1 GM/50 ML BAG IVPB (08:38)
[2022-04-19] MEDS: POTASSIUM CHLORIDE 20 MEQ PACKET (FOR LIQUID) 80 MEQ PO (08:38)
[2022-04-19] MEDS: LIPASE/AMYLASE/PROTEASE 12,000 UNITS CAP 2 CAP PO ×3 (08:39→16:06)
[2022-04-19] MEDS: FLUDROCORTISONE ACETATE 0.1 MG TABLET PO (08:39)
[2022-04-19] MEDS: ASCORBIC ACID 500 MG TABLET PO ×2 (08:39→23:24)
[2022-04-19] MEDS: PREGABALIN (*CRX) 75 MG CAPSULE PO ×3 (08:39→16:06)
[2022-04-19] MEDS: ERGOCALCIFEROL 50,000 UNIT CAPSULE 50000 UNITS PO (08:39)
[2022-04-19] MEDS: CHOLECALCIFEROL 1,000 UNITS TABLET 1000 UNITS BY MOUTH (08:39)
[2022-04-19] MEDS: FERROUS SULFATE 324 MG TABLET PO ×3 (08:39→16:06)
[2022-04-19] MEDS: DULoxetine HCL 20 MG CAPSULE.DR PO (08:39)
[2022-04-19] MEDS: GABAPENTIN 100 MG CAPSULE 200 MG PO ×2 (08:39→16:06)
[2022-04-19] MEDS: FOLIC ACID 1 MG TABLET BY MOUTH (08:39)
[2022-04-19] MEDS: SODIUM BICARBONATE TAB 650 MG TABLET PO ×2 (08:40→16:06)
[2022-04-19] MEDS: MAGNESIUM OXIDE 400 MG TABLET PO (08:40)
[2022-04-19] MEDS: NICOTINE (*PBKC) 14 MG PATCH 1 PATCH TRANSDERM (08:40)
[2022-04-19] MEDS: THIAMINE HCL 100 MG TABLET BY MOUTH (08:40)
[2022-04-19] MEDS: TAMSULOSIN HCL 0.4 MG CAPSULE PO (08:40)
[2022-04-19] MEDS: MIDODRINE HCL 10 MG TABLET BY MOUTH ×3 (08:40→16:06)
[2022-04-19] MEDS: ZINC SULFATE 220 MG CAPSULE PO (08:40)
[2022-04-19] MEDS: INSULIN ASPART (*BKC) 100 UNITS/ML SUB-Q (09:02)
[2022-04-19] MEDS: SILVERGEL (ELTA) 45 ML 1 APPLIC TOPICAL (09:04)
--- NOTE | 2022-04-19 10:14 | PM.IMPN ---
Progress Note: A&P Assessment and Plan (1) Delirium due to general medical condition: Code(s): F05 - Delirium due to known physiological condition Status: Acute Assessment and Plan: Improved (2) Sepsis: Code(s): A41.9 - Sepsis, unspecified organism Status: Acute Assessment and Plan: upon arrival patient met the criteria for sepsis with fever, elevated lactic acid, elevated white count, acute mental status change, and possible source of infection UTI will follow-up on blood culture. Continue antibiotics (3) Acute kidney injury: Code(s): N17.9 - Acute kidney failure, unspecified Status: Acute Assessment and Plan: Creatinine 1.0 (4) UTI (urinary tract infection) due to urinary indwelling Ellison catheter: Code(s): T83.511A - Infection and inflammatory reaction due to indwelling urethral catheter, initial encounter; N39.0 - Urinary tract infection, site not specified Status: Acute Assessment and Plan: Antibiotics for UTI (5) Electrolyte abnormality: Code(s): E87.8 - Other disorders of electrolyte and fluid balance, not elsewhere classified Status: Acute Assessment and Plan: Hypokalemia. Replace. Monitor. Once above 3.5 patient can be discharged (6) Leukocytosis: Code(s): D72.829 - Elevated white blood cell count, unspecified Status: Acute Assessment and Plan: CT unrevealing Will reculture the patient. No fevers. Clinically he appears to be better but he still has ongoing leukocytosis. Not on any medications that would cause leukocytosis. Subjective Date/time seen: 04/19/22 10:14 No complaints Exam Narrative: under nourished Patient is comfortable, NAD HEENT: eyes are clear and none icteric LUNGS: normal respiratory effort ABD: not distended Lower extremities: no edema SKIN: nonjaundiced Neuro: grossly intact. Objective Data Vital Signs Vital Signs: Vital Signs - 24 hr 04/18/22 14:36 04/18/22 22:46 04/19/22 06:00 Temperature 97.1 F L 97.2 F L 97.0 F L Pulse Rate 61 61 63 Respiratory Rate 16 21 H 21 H Blood Pressure 117/63 111/69 103/61 Pulse Oximetry 100 100 100 Oxygen Delivery 04/19/22 08:34 Temperature Pulse Rate 58 L Respiratory Rate Blood Pressure Pulse Oximetry 99 Oxygen Delivery Room Air Intake/Output Intake/Output: Intake & Output 04/16/22 04/17/22 04/18/22 04/19/22 23:59 23:59 23:59 23:59 Intake Total 860 1530 1070 600 Output Total 2550 1500 1370 900 Balance -1690 30 -300 -300 Meds/Results Medications: Active Medications Generic Name Dose Route Start Last Admin Trade Name Freq PRN Reason Stop Dose Admin Acetaminophen 650 mg 04/10/22 01:39 Acetaminophen 325 Mg Tablet PO Q6H PRN Fever > 100.4 Acetaminophen 1,000 mg 04/10/22 08:36 04/12/22 20:59 Acetaminophen 500 Mg Tablet PO 1,000 mg Q6H PRN Administration Mild to moderate pain Lipase/Protease/Amylase 2 cap 04/10/22 08:45 04/19/22 08:39 Lipase/Amylase/Protease 12,000 Units Cap PO 2 cap TIDWM CINDY Administration Ascorbic Acid 500 mg 04/10/22 09:00 04/19/22 08:39 Ascorbic Acid 500 Mg Tablet PO 500 mg Q12HR CINDY Administration Dextrose 12.5 gm 04/10/22 08:21 Dextrose 50% 25 Gm/50 Ml Syringe IV PUSH PRN PRN Hypoglycemia Protocol Duloxetine HCl 20 mg 04/10/22 09:00 04/19/22 08:39 Duloxetine Hcl 20 Mg Capsule.Dr PO 20 mg QAM CINDY Administration Ergocalciferol 50,000 unit 04/12/22 09:00 04/19/22 08:39 Ergocalciferol 50,000 Unit Capsule PO 50,000 unit Sher@0900 CINDY Administration Ferrous Sulfate 324 mg 04/10/22 08:00 04/19/22 08:39 Ferrous Sulfate 324 Mg Tablet PO 324 mg TIDWM CINDY Administration Fludrocortisone Acetate 0.1 mg 04/10/22 08:45 04/19/22 08:39 Fludrocortisone Acetate 0.1 Mg Tablet PO 0.1 mg DAILY@0800 CINDY Administration Folic Acid 1 mg 04/10/22 09:00 04/19/22 08:
--- NOTE | 2022-04-19 10:48 | PCPTNOTE ---
Attempted to see patient for Physical Therapy treatment; despite multiple attempts, patient would not open his eyes. Patient did acknowledge that he wasn't feeling well at this time however was agreeable and nodded to therapy coming back at a later time today.
[2022-04-19 11:51] LABS: Glucose Point of Care 406 mg/dl (65-105)
[2022-04-19] MEDS: INSULIN ASPART (*BKC) 100 UNITS/ML 12 UNITS SUB-Q (12:08)
[2022-04-19 14:00] VITALS: BP 85/59; PULSE 64; RESP 20; TEMP 36.1; O2SAT 100
--- NOTE | 2022-04-19 14:27 | PCPTNOTE ---
Did not see patient for therapy this afternoon due to low BP.
[2022-04-19 14:47] VITALS: BP 82/52; PULSE 70; O2SAT 97
[2022-04-19 15:37] LABS: Appearance Urine Cloudy (Clear); Bilirubin Urine Negative (Negative); Blood Urine 2+ (Negative); Color Urine Yellow (Yellow); Glucose Urine UA 3+ mg/dL (Negative); Ketones Urine Negative (Negative); Leukocyte Esterase Ur 1+ LEU/UL (Negative); Nitrate Urine Negative (Negative); Protein Urine 1+ mg/dL (Negative); Specific Grav Ur 1.015 (1.001-1.035); Urobilinogen Urine 0.2 mg/dL (<2.0)
[2022-04-19 15:45] LABS: Bacteria Urine Trace /hpf; Budding Yeast Urine Present /hpf; Mucus Urine Rare /lpf; RBC Urine >75 /hpf (0-2); WBC Urine >75 /hpf
[2022-04-19 15:47] LABS: Add Urine Microscopic? YES
[2022-04-19] MEDS: LOPERAMIDE HCL 2 MG CAPSULE PO (16:05)
[2022-04-19] MEDS: SODIUM CHLORIDE 0.9% IV 1,000 ML 333 ML IV CONT (16:07)
[2022-04-19] MEDS: INSULIN ASPART (*BKC) 100 UNITS/ML 14 UNITS SUB-Q (17:30)
[2022-04-19 17:33] LABS: Glucose Point of Care 418 mg/dl (65-105)
[2022-04-19 17:45] VITALS: BP 112/64
[2022-04-19 21:07] VITALS: BP 110/63; PULSE 69; RESP 12; TEMP 36.6; O2SAT 100
[2022-04-19 21:50] LABS: Glucose Point of Care 237 mg/dl (65-105)
[2022-04-19] MEDS: INSULIN GLARGINE (*BKC) 100 UNITS/ML 10 UNITS SUB-Q (23:24)
[2022-04-20 04:42] VITALS: BP 106/61; PULSE 67; RESP 12; TEMP 36.6; O2SAT 97
[2022-04-20 05:26] LABS: Hematocrit 27.6 % (42.0-52.0); Hemoglobin 8.4 g/dL (14.0-18.0); Mean Corpuscular HGB Conc 30.4 g/dl (32-36); Mean Corpuscular Hemoglobin 27.7 pg (26-34); Mean Corpuscular Volume 91.1 fl (80-100); Mean Platelet Volume 9.9 fl (7.4-10.4); Platelet Count Result 196 k/mm3 (150-375); Red Blood Count 3.03 M/mm3 (4.6-6.20); Red Cell Distribution Width 16.1 % (11.5-14.5)
[2022-04-20 05:38] LABS: Albumin Level 2.8 g/dL (3.5-5.1); Anion Gap 9 mmol/L (8-16); Blood Urea Nitrogen 19 mg/dL (9-20); Calcium 8.5 mg/dL (8.4-10.2); Carbon Dioxide 23 mmol/L (22-30); Chloride 104 mmol/L (98-107); Estimated CRCL calculation 55 ml/min; Estimated Glomerular Filt Rate > 60; Glucose 306 mg/dL (65-110); Magnesium 1.9 mg/dL (1.6-2.3); Phosphorus 3.1 mg/dL (2.5-4.5); Potassium 3.3 mmol/L (3.4-5.0); Sodium 136 mmol/L (137-145)
[2022-04-20] MEDS: LEVOTHYROXINE SODIUM 75 MCG TABLET PO (06:28)
[2022-04-20 07:36] LABS: Glucose Point of Care 319 mg/dl (65-105)
[2022-04-20 08:37] LABS: Glucose Point of Care 299 mg/dl (65-105)
[2022-04-20] MEDS: LOPERAMIDE HCL 2 MG CAPSULE PO (08:49)
[2022-04-20] MEDS: POTASSIUM CHLORIDE 20 MEQ PACKET (FOR LIQUID) 40 MEQ PO (08:50)
[2022-04-20] MEDS: GABAPENTIN 100 MG CAPSULE 200 MG PO ×2 (08:50→16:19)
[2022-04-20] MEDS: ERTAPENEM 1 GM/NS 50 ML 1 GM/50 ML BAG IVPB (08:50)
[2022-04-20] MEDS: FLUDROCORTISONE ACETATE 0.1 MG TABLET PO (08:51)
[2022-04-20] MEDS: ASCORBIC ACID 500 MG TABLET PO ×2 (08:51→20:36)
[2022-04-20] MEDS: POTASSIUM CHLORIDE 20 MEQ PACKET (FOR LIQUID) 80 MEQ PO (08:51)
[2022-04-20] MEDS: ZINC SULFATE 220 MG CAPSULE PO (08:51)
[2022-04-20] MEDS: MIDODRINE HCL 10 MG TABLET BY MOUTH ×3 (08:51→16:19)
[2022-04-20] MEDS: PREGABALIN (*CRX) 75 MG CAPSULE PO ×3 (08:51→16:19)
[2022-04-20] MEDS: NICOTINE (*PBKC) 14 MG PATCH 1 PATCH TRANSDERM (08:51)
[2022-04-20] MEDS: FOLIC ACID 1 MG TABLET BY MOUTH (08:51)
[2022-04-20] MEDS: LIPASE/AMYLASE/PROTEASE 12,000 UNITS CAP 2 CAP PO ×3 (08:51→16:19)
[2022-04-20] MEDS: DULoxetine HCL 20 MG CAPSULE.DR PO (08:51)
[2022-04-20] MEDS: SODIUM BICARBONATE TAB 650 MG TABLET PO ×2 (08:52→16:19)
[2022-04-20] MEDS: FERROUS SULFATE 324 MG TABLET PO ×3 (08:52→16:19)
[2022-04-20] MEDS: THIAMINE HCL 100 MG TABLET BY MOUTH (08:52)
[2022-04-20] MEDS: TAMSULOSIN HCL 0.4 MG CAPSULE PO (08:52)
[2022-04-20] MEDS: MAGNESIUM OXIDE 400 MG TABLET PO (08:52)
[2022-04-20] MEDS: CHOLECALCIFEROL 1,000 UNITS TABLET 1000 UNITS BY MOUTH (08:52)
[2022-04-20] MEDS: SILVERGEL (ELTA) 45 ML 1 APPLIC TOPICAL (08:52)
[2022-04-20] MEDS: INSULIN ASPART (*BKC) 100 UNITS/ML SUB-Q ×2 (08:53→17:44)
--- NOTE | 2022-04-20 10:17 | PM.IMPN ---
Progress Note: A&P Assessment and Plan (1) Delirium due to general medical condition: Code(s): F05 - Delirium due to known physiological condition Status: Acute Assessment and Plan: Improved (2) Sepsis: Code(s): A41.9 - Sepsis, unspecified organism Status: Acute Assessment and Plan: upon arrival patient met the criteria for sepsis with fever, elevated lactic acid, elevated white count, acute mental status change, and possible source of infection UTI will follow-up on blood culture. Continue antibiotics (3) Acute kidney injury: Code(s): N17.9 - Acute kidney failure, unspecified Status: Acute Assessment and Plan: Creatinine 1.0 (4) UTI (urinary tract infection) due to urinary indwelling Ellison catheter: Code(s): T83.511A - Infection and inflammatory reaction due to indwelling urethral catheter, initial encounter; N39.0 - Urinary tract infection, site not specified Status: Acute Assessment and Plan: Antibiotics for UTI (5) Electrolyte abnormality: Code(s): E87.8 - Other disorders of electrolyte and fluid balance, not elsewhere classified Status: Acute Assessment and Plan: Hypokalemia. Replace. Monitor. Once above 3.5 patient can be discharged (6) Leukocytosis: Code(s): D72.829 - Elevated white blood cell count, unspecified Status: Acute Assessment and Plan: CT unrevealing Will reculture the patient. No fevers. Clinically he appears to be better but he still has ongoing leukocytosis. Will await culture results but likely related to Florinef Plan Plan to discharge tomorrow if cultures remain negative Subjective Date/time seen: 04/20/22 10:17 no complaints Exam Narrative: under nourished Patient is comfortable, NAD HEENT: eyes are clear and none icteric LUNGS: normal respiratory effort ABD: not distended Lower extremities: no edema SKIN: nonjaundiced Neuro: grossly intact. Objective Data Vital Signs Vital Signs: Vital Signs - 24 hr 04/19/22 14:47 04/19/22 14:00 04/19/22 17:45 Temperature 97.0 F L Pulse Rate 70 64 Respiratory Rate 20 Blood Pressure 82/52 L 85/59 L 112/64 Pulse Oximetry 97 100 Oxygen Delivery 04/19/22 21:07 04/19/22 20:00 04/20/22 04:42 Temperature 98 F 98 F Pulse Rate 69 67 Respiratory Rate 12 12 Blood Pressure 110/63 106/61 Pulse Oximetry 100 97 Oxygen Delivery Room Air Intake/Output Intake/Output: Intake & Output 04/17/22 04/18/22 04/19/22 04/20/22 23:59 23:59 23:59 23:59 Intake Total 1530 1070 3710 1690 Output Total 1500 1370 1600 500 Balance 30 -300 2110 1190 Meds/Results Medications: Active Medications Generic Name Dose Route Start Last Admin Trade Name Freq PRN Reason Stop Dose Admin Acetaminophen 650 mg 04/10/22 01:39 Acetaminophen 325 Mg Tablet PO Q6H PRN Fever > 100.4 Acetaminophen 1,000 mg 04/10/22 08:36 04/12/22 20:59 Acetaminophen 500 Mg Tablet PO 1,000 mg Q6H PRN Administration Mild to moderate pain Lipase/Protease/Amylase 2 cap 04/10/22 08:45 04/20/22 08:51 Lipase/Amylase/Protease 12,000 Units Cap PO 2 cap TIDWM CINDY Administration Ascorbic Acid 500 mg 04/10/22 09:00 04/20/22 08:51 Ascorbic Acid 500 Mg Tablet PO 500 mg Q12HR CINDY Administration Dextrose 12.5 gm 04/10/22 08:21 Dextrose 50% 25 Gm/50 Ml Syringe IV PUSH PRN PRN Hypoglycemia Protocol Duloxetine HCl 20 mg 04/10/22 09:00 04/20/22 08:51 Duloxetine Hcl 20 Mg Capsule.Dr PO 20 mg QAM CINDY Administration Ergocalciferol 50,000 unit 04/12/22 09:00 04/19/22 08:39 Ergocalciferol 50,000 Unit Capsule PO 50,000 unit Sher@0900 CINDY Administration Ferrous Sulfate 324 mg 04/10/22 08:00 04/20/22 08:52 Ferrous Sulfate 324 Mg Tablet PO 324 mg TIDWM CINDY Administration Fludrocortisone Acetate 0.1 mg 04/10/22 08:45 04/20/22 08:51 Fludrocortisone Acet
--- NOTE | 2022-04-20 10:43 | PCPTNOTE ---
Patient refused treatment this session. Patient did not give reason why. Patient reported not right now, and closed his eyes and would not respond to anymore questions.
--- NOTE | 2022-04-20 11:31 | PCOTNOTE ---
Attempted 2x this AM to see patient for OT. Patient unable to be aroused during either attempt to participate in OT. Will continue plan of care as appropriate.
--- NOTE | 2022-04-20 11:45 | PCNFU ---
Nutrition Follow-Up Complete: Increased Nutrient needs as related to wounds as evidenced by Pressure ulcers noted. Goal: Adequate Intake of at least 75% of meals/supplements Patient is progressing towards goal. We will continue current goal. Pt current nutrition is DBCC. Last recorded weight is 46.3 kg, down from 48.6 kg. Bowel Motility:+BM reported 04/20 Labs Reviewed:Glu 306, K 3.3,Na 136, Hgb8.4, Hct 27.6, Alb 2.8 Meds Noted:Zinc, Thiamine, Vit D, Ferrous Sulfate, KCL powder, Synthroid, NovoLog,Cymbalta, Lyrica Skin: stage II pressure ulcer-ankle, Deep Tissue-saccum Additional Notes: Patient is tolerating Diabetic diet. Oral intake has been 25-100% of meals. Patient is also receiving diet supplements of Glucerna shakes TID providing an additional 220 kcals and 10 gms protein and Sincere BID for wound healing providing 90 kcals and 2.5 gms protein. Agree with diet orders. Monitoring: RD will monitor every 5 days.
[2022-04-20 12:15] LABS: Glucose Point of Care 412 mg/dl (65-105)
[2022-04-20] MEDS: INSULIN ASPART (*BKC) 100 UNITS/ML 12 UNITS SUB-Q (12:21)
[2022-04-20 14:00] VITALS: BP 75/45; PULSE 68; RESP 16; TEMP 36.1; O2SAT 96
[2022-04-20] MEDS: SODIUM CHLORIDE 0.9% IV 500 ML IV CONT (14:50)
[2022-04-20 16:52] VITALS: BP 120/82
[2022-04-20 17:36] LABS: Glucose Point of Care 277 mg/dl (65-105)
[2022-04-20 18:46] VITALS: BP 118/74; PULSE 74; RESP 16; TEMP 36.1; O2SAT 95
[2022-04-20] MEDS: INSULIN GLARGINE (*BKC) 100 UNITS/ML 15 UNITS SUB-Q (20:39)
[2022-04-20 21:56] VITALS: BP 102/62; PULSE 73; RESP 14; TEMP 36.9; O2SAT 99
[2022-04-20 23:17] LABS: Glucose Point of Care 321 mg/dl (65-105)
[2022-04-21] VITALS (7 sets, daily range): BP systolic 94–120; BP diastolic 40–70; PULSE 64–86; RESP 14–18; TEMP 36.4–37.5; O2SAT 96–99
[2022-04-21] MEDS: SODIUM CHLORIDE 0.9% IV 500 ML 999 ML IV CONT (05:00)
[2022-04-21] MEDS: LEVOTHYROXINE SODIUM 75 MCG TABLET PO (05:49)
[2022-04-21 06:12] LABS: Hematocrit 27.2 % (42.0-52.0); Hemoglobin 8.2 g/dL (14.0-18.0); Mean Corpuscular HGB Conc 30.1 g/dl (32-36); Mean Corpuscular Volume 92.8 fl (80-100); Mean Platelet Volume 9.9 fl (7.4-10.4); Platelet Count Result 187 k/mm3 (150-375); Red Blood Count 2.93 M/mm3 (4.6-6.20); Red Cell Distribution Width 16.1 % (11.5-14.5); White Blood Count 23.2 K/mm3 (4.5-10.0)
[2022-04-21 06:24] LABS: Albumin Level 2.8 g/dL (3.5-5.1); Anion Gap 11 mmol/L (8-16); Blood Urea Nitrogen 20 mg/dL (9-20); Carbon Dioxide 22 mmol/L (22-30); Chloride 108 mmol/L (98-107); Estimated CRCL calculation 43 ml/min; Estimated Glomerular Filt Rate > 60; Glucose 167 mg/dL (65-110); Magnesium 1.7 mg/dL (1.6-2.3); Phosphorus 2.6 mg/dL (2.5-4.5); Potassium 3.4 mmol/L (3.4-5.0); Sodium 141 mmol/L (137-145)
[2022-04-21] MEDS: FERROUS SULFATE 324 MG TABLET PO ×3 (08:32→18:51)
[2022-04-21] MEDS: GABAPENTIN 100 MG CAPSULE 200 MG PO ×2 (08:32→18:51)
[2022-04-21] MEDS: MIDODRINE HCL 10 MG TABLET BY MOUTH ×3 (08:32→18:50)
[2022-04-21] MEDS: FLUDROCORTISONE ACETATE 0.1 MG TABLET PO (08:32)
[2022-04-21] MEDS: ASCORBIC ACID 500 MG TABLET PO ×2 (08:32→20:44)
[2022-04-21] MEDS: CHOLECALCIFEROL 1,000 UNITS TABLET 1000 UNITS BY MOUTH (08:33)
[2022-04-21] MEDS: DULoxetine HCL 20 MG CAPSULE.DR PO (08:33)
[2022-04-21] MEDS: ZINC SULFATE 220 MG CAPSULE PO (08:33)
[2022-04-21] MEDS: SODIUM BICARBONATE TAB 650 MG TABLET PO ×2 (08:33→18:50)
[2022-04-21] MEDS: FOLIC ACID 1 MG TABLET BY MOUTH (08:33)
[2022-04-21] MEDS: POTASSIUM CHLORIDE 20 MEQ PACKET (FOR LIQUID) 80 MEQ PO (08:33)
[2022-04-21] MEDS: TAMSULOSIN HCL 0.4 MG CAPSULE PO (08:33)
[2022-04-21] MEDS: LIPASE/AMYLASE/PROTEASE 12,000 UNITS CAP 2 CAP PO ×3 (08:33→18:50)
[2022-04-21] MEDS: THIAMINE HCL 100 MG TABLET BY MOUTH (08:33)
[2022-04-21] MEDS: MAGNESIUM OXIDE 400 MG TABLET PO (08:33)
[2022-04-21] MEDS: NICOTINE (*PBKC) 14 MG PATCH 1 PATCH TRANSDERM (08:34)
[2022-04-21] MEDS: PREGABALIN (*CRX) 75 MG CAPSULE PO ×3 (08:35→18:50)
[2022-04-21] MEDS: SILVERGEL (ELTA) 45 ML 1 APPLIC TOPICAL (08:35)
[2022-04-21 08:45] LABS: Glucose Point of Care 175 mg/dl (65-105)
--- NOTE | 2022-04-21 09:50 | PM.IMPN ---
Progress Note: A&P Assessment and Plan (1) Delirium due to general medical condition: Code(s): F05 - Delirium due to known physiological condition Status: Acute Assessment and Plan: Improved (2) Sepsis: Code(s): A41.9 - Sepsis, unspecified organism Status: Acute Assessment and Plan: upon arrival patient met the criteria for sepsis with fever, elevated lactic acid, elevated white count, acute mental status change, and possible source of infection UTI will follow-up on blood culture. With positive blood cultures. Patient did receive a days of ertapenem. (3) Acute kidney injury: Code(s): N17.9 - Acute kidney failure, unspecified Status: Acute Assessment and Plan: Creatinine improved (4) UTI (urinary tract infection) due to urinary indwelling Ellison catheter: Code(s): T83.511A - Infection and inflammatory reaction due to indwelling urethral catheter, initial encounter; N39.0 - Urinary tract infection, site not specified Status: Acute Assessment and Plan: Antibiotics for UTI Patient has received 8 days of ertapenem (5) Electrolyte abnormality: Code(s): E87.8 - Other disorders of electrolyte and fluid balance, not elsewhere classified Status: Acute Assessment and Plan: Monitor and replace (6) Leukocytosis: Code(s): D72.829 - Elevated white blood cell count, unspecified Status: Acute Assessment and Plan: CT noted Will reculture the patient. No fevers. Clinically he appears to be better but he still has ongoing leukocytosis. Imaging did show pneumonia. Will change his antibiotics to Levaquin to cover for Pseudomonas. Otherwise I am not convinced the pneumonia is causing this as he has very few respiratory symptoms. Otherwise he was previously treated with 8 days of ertapenem for his UTI and bacteremia. This should be treated appropriately. Possibly Related to Florinef. Await culture results but likely related to Florinef. (7) Pneumonia: Code(s): J18.9 - Pneumonia, unspecified organism Status: Acute Assessment and Plan: Patient was previously treated with ertapenem. Due to leukocytosis, I stop the ertapenem and put him on levofloxacin. This will help cover for Pseudomonas. Will trend WBCs and follow cultures. Plan Plan to discharge tomorrow if cultures remain negative Subjective Date/time seen: 04/21/22 09:50 No complaints Exam Narrative: under nourished Patient is comfortable, NAD HEENT: eyes are clear and none icteric LUNGS: normal respiratory effort ABD: not distended Lower extremities: no edema SKIN: nonjaundiced Neuro: grossly intact. Objective Data Vital Signs Vital Signs: Vital Signs - 24 hr 04/20/22 14:00 04/20/22 16:52 04/20/22 18:46 Temperature 97 F L 96.9 F L Pulse Rate 68 74 Respiratory Rate 16 16 Blood Pressure 75/45 L 120/82 118/74 Pulse Oximetry 96 95 Oxygen Delivery 04/20/22 21:56 04/20/22 20:30 04/21/22 01:58 Temperature 98.4 F 99.5 F Pulse Rate 73 86 Respiratory Rate 14 14 Blood Pressure 102/62 94/40 L Pulse Oximetry 99 99 Oxygen Delivery Room Air 04/21/22 05:33 Temperature 98.6 F Pulse Rate 79 Respiratory Rate 14 Blood Pressure 97/57 L Pulse Oximetry 99 Oxygen Delivery Intake/Output Intake/Output: Intake & Output 04/18/22 04/19/22 04/20/22 04/21/22 23:59 23:59 23:59 23:59 Intake Total 1070 3710 2990 1730 Output Total 1370 1600 1050 750 Balance -300 2110 1940 980 Meds/Results Medications: Active Medications Generic Name Dose Route Start Last Admin Trade Name Freq PRN Reason Stop Dose Admin Acetaminophen 650 mg 04/10/22 01:39 Acetaminophen 325 Mg Tablet PO Q6H PRN Fever > 100.4 Acetaminophen 1,000 mg 04/10/22 08:36 04/12/22 20:59 Acetaminophen 500 Mg Tablet PO 1,000 mg Q6H PRN Administration Mild to moderate pain Lipase/Protease/Amylase 2 cap 04/10/22 08
[2022-04-21 12:27] LABS: Glucose Point of Care 366 mg/dl (65-105)
[2022-04-21] MEDS: INSULIN ASPART (*BKC) 100 UNITS/ML SUB-Q ×2 (12:47→18:50)
[2022-04-21 17:42] LABS: Glucose Point of Care 262 mg/dl (65-105)
[2022-04-21] MEDS: INSULIN GLARGINE (*BKC) 100 UNITS/ML 15 UNITS SUB-Q (20:50)
[2022-04-21 20:55] LABS: Glucose Point of Care 315 mg/dl (65-105)
[2022-04-22 01:56] VITALS: BP 108/66; PULSE 66; RESP 18; TEMP 36.6; O2SAT 100
[2022-04-22 04:11] VITALS: BP 110/63; PULSE 68; RESP 18; TEMP 36.6; O2SAT 100
[2022-04-22] MEDS: LEVOTHYROXINE SODIUM 75 MCG TABLET PO (06:01)
[2022-04-22 06:08] LABS: Hematocrit 26.9 % (42.0-52.0); Hemoglobin 8.6 g/dL (14.0-18.0); Mean Corpuscular Hemoglobin 29.3 pg (26-34); Mean Corpuscular Volume 91.5 fl (80-100); Mean Platelet Volume 9.8 fl (7.4-10.4); Platelet Count Result 182 k/mm3 (150-375); Red Blood Count 2.94 M/mm3 (4.6-6.20); Red Cell Distribution Width 15.7 % (11.5-14.5); White Blood Count 19.3 K/mm3 (4.5-10.0)
[2022-04-22 06:26] LABS: Albumin Level 2.9 g/dL (3.5-5.1); Anion Gap 8 mmol/L (8-16); Blood Urea Nitrogen 19 mg/dL (9-20); Calcium 8.8 mg/dL (8.4-10.2); Carbon Dioxide 23 mmol/L (22-30); Chloride 106 mmol/L (98-107); Estimated CRCL calculation 47 ml/min; Estimated Glomerular Filt Rate > 60; Glucose 116 mg/dL (65-110); Magnesium 1.6 mg/dL (1.6-2.3); Phosphorus 2.7 mg/dL (2.5-4.5); Potassium 3.1 mmol/L (3.4-5.0); Sodium 137 mmol/L (137-145)
[2022-04-22] MEDS: FERROUS SULFATE 324 MG TABLET PO ×3 (08:42→18:00)
[2022-04-22] MEDS: ZINC SULFATE 220 MG CAPSULE PO (08:42)
[2022-04-22] MEDS: SODIUM BICARBONATE TAB 650 MG TABLET PO ×2 (08:42→18:01)
[2022-04-22] MEDS: GABAPENTIN 100 MG CAPSULE 200 MG PO ×2 (08:42→18:01)
[2022-04-22] MEDS: MIDODRINE HCL 10 MG TABLET BY MOUTH ×3 (08:42→18:00)
[2022-04-22] MEDS: TAMSULOSIN HCL 0.4 MG CAPSULE PO (08:43)
[2022-04-22] MEDS: ASCORBIC ACID 500 MG TABLET PO ×2 (08:43→22:00)
[2022-04-22] MEDS: LIPASE/AMYLASE/PROTEASE 12,000 UNITS CAP 2 CAP PO ×3 (08:43→18:00)
[2022-04-22] MEDS: DULoxetine HCL 20 MG CAPSULE.DR PO (08:43)
[2022-04-22] MEDS: MAGNESIUM OXIDE 400 MG TABLET PO (08:43)
[2022-04-22] MEDS: THIAMINE HCL 100 MG TABLET BY MOUTH (08:44)
[2022-04-22] MEDS: FLUDROCORTISONE ACETATE 0.1 MG TABLET PO (08:44)
[2022-04-22] MEDS: FOLIC ACID 1 MG TABLET BY MOUTH (08:44)
[2022-04-22] MEDS: POTASSIUM CHLORIDE 20 MEQ PACKET (FOR LIQUID) 80 MEQ PO (08:45)
[2022-04-22] MEDS: CHOLECALCIFEROL 1,000 UNITS TABLET 1000 UNITS BY MOUTH (08:45)
[2022-04-22] MEDS: NICOTINE (*PBKC) 14 MG PATCH 1 PATCH TRANSDERM (08:46)
[2022-04-22] MEDS: PREGABALIN (*CRX) 75 MG CAPSULE PO ×3 (08:46→18:00)
[2022-04-22] MEDS: SILVERGEL (ELTA) 45 ML 1 APPLIC TOPICAL (08:48)
[2022-04-22 08:52] LABS: Glucose Point of Care 118 mg/dl (65-105)
[2022-04-22 10:00] VITALS: BP 118/60; PULSE 66; RESP 18; TEMP 36.4; O2SAT 100
[2022-04-22 12:47] LABS: Glucose Point of Care 315 mg/dl (65-105)
[2022-04-22] MEDS: INSULIN ASPART (*BKC) 100 UNITS/ML SUB-Q ×2 (12:57→18:05)
[2022-04-22 14:00] VITALS: BP 115/68; PULSE 67; RESP 18; TEMP 36.4; O2SAT 98
[2022-04-22] MEDS: NICOTINE (*PBKC) 21 MG PATCH 1 PATCH TRANSDERM (15:33)
[2022-04-22 17:44] LABS: Glucose Point of Care 338 mg/dl (65-105)
[2022-04-22 18:00] VITALS: BP 118/66; PULSE 68; RESP 18; TEMP 36.5; O2SAT 97
[2022-04-22 19:47] VITALS: BP 98/60; PULSE 70; RESP 14; TEMP 36.6; O2SAT 100
[2022-04-22] MEDS: INSULIN GLARGINE (*BKC) 100 UNITS/ML 15 UNITS SUB-Q (22:03)
[2022-04-22 22:53] LABS: Glucose Point of Care 337 mg/dl (65-105)
[2022-04-23] VITALS (7 sets, daily range): BP systolic 81–91; BP diastolic 48–60; PULSE 66–88; RESP 12–18; TEMP 36–36.5; O2SAT 97–100
[2022-04-23 05:49] LABS: Hematocrit 28.7 % (42.0-52.0); Hemoglobin 8.4 g/dL (14.0-18.0); Mean Corpuscular HGB Conc 29.3 g/dl (32-36); Mean Corpuscular Hemoglobin 28.6 pg (26-34); Mean Corpuscular Volume 97.6 fl (80-100); Mean Platelet Volume 9.8 fl (7.4-10.4); Platelet Count Result 196 k/mm3 (150-375); Red Blood Count 2.94 M/mm3 (4.6-6.20); Red Cell Distribution Width 15.6 % (11.5-14.5); White Blood Count 17.4 K/mm3 (4.5-10.0)
[2022-04-23 06:00] LABS: Anion Gap 10 mmol/L (8-16); Blood Urea Nitrogen 24 mg/dL (9-20); Calcium 8.6 mg/dL (8.4-10.2); Carbon Dioxide 21 mmol/L (22-30); Chloride 104 mmol/L (98-107); Estimated CRCL calculation 43 ml/min; Estimated Glomerular Filt Rate > 60; Glucose 384 mg/dL (65-110); Magnesium 1.7 mg/dL (1.6-2.3); Potassium 3.3 mmol/L (3.4-5.0); Sodium 135 mmol/L (137-145)
[2022-04-23] MEDS: LEVOTHYROXINE SODIUM 75 MCG TABLET PO (06:34)
[2022-04-23 08:33] LABS: Glucose Point of Care 317 mg/dl (65-105)
[2022-04-23] MEDS: INSULIN ASPART (*BKC) 100 UNITS/ML SUB-Q ×3 (08:40→17:16)
[2022-04-23] MEDS: NICOTINE (*PBKC) 21 MG PATCH 1 PATCH TRANSDERM (10:01)
[2022-04-23] MEDS: SODIUM BICARBONATE TAB 650 MG TABLET PO ×2 (10:02→17:19)
[2022-04-23] MEDS: ZINC SULFATE 220 MG CAPSULE PO (10:02)
[2022-04-23] MEDS: FERROUS SULFATE 324 MG TABLET PO ×3 (10:02→17:19)
[2022-04-23] MEDS: LIPASE/AMYLASE/PROTEASE 12,000 UNITS CAP 2 CAP PO ×3 (10:02→17:19)
[2022-04-23] MEDS: THIAMINE HCL 100 MG TABLET BY MOUTH (10:02)
[2022-04-23] MEDS: DULoxetine HCL 20 MG CAPSULE.DR PO (10:02)
[2022-04-23] MEDS: FLUDROCORTISONE ACETATE 0.1 MG TABLET PO (10:02)
[2022-04-23] MEDS: MIDODRINE HCL 10 MG TABLET BY MOUTH ×3 (10:02→17:19)
[2022-04-23] MEDS: CHOLECALCIFEROL 1,000 UNITS TABLET 1000 UNITS BY MOUTH (10:03)
[2022-04-23] MEDS: GABAPENTIN 100 MG CAPSULE 200 MG PO ×2 (10:03→17:19)
[2022-04-23] MEDS: ASCORBIC ACID 500 MG TABLET PO ×2 (10:03→20:15)
[2022-04-23] MEDS: MAGNESIUM OXIDE 400 MG TABLET PO (10:03)
[2022-04-23] MEDS: PREGABALIN (*CRX) 75 MG CAPSULE PO ×3 (10:03→17:18)
[2022-04-23] MEDS: TAMSULOSIN HCL 0.4 MG CAPSULE PO (10:03)
[2022-04-23] MEDS: POTASSIUM CHLORIDE 10 MEQ TABLET.ER 80 MEQ PO (10:04)
[2022-04-23] MEDS: SILVERGEL (ELTA) 45 ML 1 APPLIC TOPICAL (10:04)
[2022-04-23] MEDS: FOLIC ACID 1 MG TABLET BY MOUTH (10:04)
--- NOTE | 2022-04-23 10:46 | PCPTNOTE ---
Attempted to see patient for PT at this time, however patient unable to be seen due to patient's blood pressure 82/44 supine. RN took blood pressure manually.
--- NOTE | 2022-04-23 11:05 | PCOTNOTE ---
Attempted to see patient this AM, per nursing HOLD AM therapy due to low blood pressure.
[2022-04-23 12:28] LABS: Glucose Point of Care 305 mg/dl (65-105)
--- NOTE | 2022-04-23 15:07 | PM.IMPN ---
Progress Note: A&P Assessment and Plan (1) Delirium due to general medical condition: Code(s): F05 - Delirium due to known physiological condition Status: Acute Assessment and Plan: Improved (2) Sepsis: Code(s): A41.9 - Sepsis, unspecified organism Status: Acute Assessment and Plan: upon arrival patient met the criteria for sepsis with fever, elevated lactic acid, elevated white count, acute mental status change, and possible source of infection UTI will follow-up on blood culture. With positive blood cultures. Patient did receive a days of ertapenem. (3) Acute kidney injury: Code(s): N17.9 - Acute kidney failure, unspecified Status: Acute Assessment and Plan: Creatinine improved (4) UTI (urinary tract infection) due to urinary indwelling Ellison catheter: Code(s): T83.511A - Infection and inflammatory reaction due to indwelling urethral catheter, initial encounter; N39.0 - Urinary tract infection, site not specified Status: Acute Assessment and Plan: Antibiotics for UTI Patient has received 8 days of ertapenem (5) Electrolyte abnormality: Code(s): E87.8 - Other disorders of electrolyte and fluid balance, not elsewhere classified Status: Acute Assessment and Plan: Monitor and replace (6) Leukocytosis: Code(s): D72.829 - Elevated white blood cell count, unspecified Status: Acute Assessment and Plan: CT noted Will reculture the patient. No fevers. Clinically he appears to be better but he still has ongoing leukocytosis. Imaging did show pneumonia. Will change his antibiotics to Levaquin to cover for Pseudomonas. Otherwise I am not convinced the pneumonia is causing this as he has very few respiratory symptoms. Otherwise he was previously treated with 8 days of ertapenem for his UTI and bacteremia. This should be treated appropriately. Possibly Related to Florinef. Await culture results but likely related to Florinef. (7) Pneumonia: Code(s): J18.9 - Pneumonia, unspecified organism Status: Acute Assessment and Plan: Patient was previously treated with ertapenem. Due to leukocytosis, I stop the ertapenem and put him on levofloxacin. This will help cover for Pseudomonas. Will trend WBCs and follow cultures. Plan Plan to discharge tomorrow if cultures remain negative Additional Plan 04/22/2022 interval history: today patient is more alert and oriented stats feels much better compared to when he arrived,? most likely patient's symptoms are stemming from sepsis due to blood cultures Positive for E coli ESBL patient was treated with ceftriaxone and vancomycin patient was resistent to several abx stopped vancomycin and Rocephin, discussed with pharmacy ID started patient on Ertapenem and received 10 of the abx, urine culture no growth so far, will continue to work with pharmacy id for further recommendation.?however patient white counts persistently elevated etiology is uncertain, possible pneumonia however does not have any respiratory symptoms, most likely 2/2 Florinef steroids, will follow repeat blood culture tomorrow, if no growth, will discharge, upon arrival patient had GERI with BUN and? serum creatinine 55/2.4? most likely secondary to dehydration as patient serum creatinine improving 24/09 will continue to hydrate the patient, will monitor potassium and magnesium and supplement,? kidney ultrasound is essentially normal, will have a PT OT evaluate the patient,? patient will benefit from rehab. 04/23/2022 interval history: today patient is more alert and oriented stats feels much better compared to when he arrived,? most likely patient's symptoms are stemming from sepsis due to blood cultures Positive for E coli ESBL patient was treated with ceftriaxone and vancomycin patient was resistent to several abx stopped vancomycin and Rocephin, discussed with pharmacy ID started patient on Ertapenem and received 10 o
[2022-04-23 15:19] LABS: Magnesium 1.7 mg/dL (1.6-2.3); Potassium 3.8 mmol/L (3.4-5.0)
[2022-04-23 17:20] LABS: Glucose Point of Care 331 mg/dl (65-105)
[2022-04-23] MEDS: INSULIN GLARGINE (*BKC) 100 UNITS/ML 15 UNITS SUB-Q (20:18)
[2022-04-23 21:28] LABS: Glucose Point of Care 441 mg/dl (65-105)
[2022-04-24 00:19] VITALS: BP 84/58; PULSE 88; RESP 12; TEMP 36.6; O2SAT 100
[2022-04-24 04:50] VITALS: BP 95/54; PULSE 74; RESP 16; TEMP 36.6; O2SAT 95
[2022-04-24 05:45] LABS: Anion Gap 10 mmol/L (8-16); Blood Urea Nitrogen 26 mg/dL (9-20); Calcium 9.2 mg/dL (8.4-10.2); Carbon Dioxide 21 mmol/L (22-30); Chloride 107 mmol/L (98-107); Estimated CRCL calculation 43 ml/min; Estimated Glomerular Filt Rate > 60; Glucose 287 mg/dL (65-110); Potassium 3.8 mmol/L (3.4-5.0); Sodium 138 mmol/L (137-145)
[2022-04-24 06:08] LABS: Hematocrit 30.9 % (42.0-52.0); Hemoglobin 9.4 g/dL (14.0-18.0); Mean Corpuscular HGB Conc 30.4 g/dl (32-36); Mean Platelet Volume 10.1 fl (7.4-10.4); Platelet Count Result 221 k/mm3 (150-375); Red Blood Count 3.36 M/mm3 (4.6-6.20); Red Cell Distribution Width 15.3 % (11.5-14.5); White Blood Count 18.5 K/mm3 (4.5-10.0)
[2022-04-24] MEDS: LEVOTHYROXINE SODIUM 75 MCG TABLET PO (06:32)
--- NOTE | 2022-04-24 07:44 | PCOTNOTE ---
Attempted to see patient this AM, per nursing hold AM therapy due to low blood pressure.
[2022-04-24 08:35] LABS: Glucose Point of Care 227 mg/dl (65-105)
[2022-04-24] MEDS: INSULIN ASPART (*BKC) 100 UNITS/ML SUB-Q (08:49)
[2022-04-24] MEDS: ZINC SULFATE 220 MG CAPSULE PO (09:44)
[2022-04-24] MEDS: NICOTINE (*PBKC) 21 MG PATCH 1 PATCH TRANSDERM (09:44)
[2022-04-24] MEDS: POTASSIUM CHLORIDE 10 MEQ TABLET.ER 80 MEQ PO (09:45)
[2022-04-24] MEDS: MIDODRINE HCL 10 MG TABLET BY MOUTH ×2 (09:45→13:51)
[2022-04-24] MEDS: FERROUS SULFATE 324 MG TABLET PO ×2 (09:45→13:51)
[2022-04-24] MEDS: LIPASE/AMYLASE/PROTEASE 12,000 UNITS CAP 2 CAP PO ×2 (09:45→13:51)
[2022-04-24] MEDS: SODIUM BICARBONATE TAB 650 MG TABLET PO (09:46)
[2022-04-24] MEDS: FLUDROCORTISONE ACETATE 0.1 MG TABLET PO (09:46)
[2022-04-24] MEDS: GABAPENTIN 100 MG CAPSULE 200 MG PO (09:46)
[2022-04-24] MEDS: MAGNESIUM OXIDE 400 MG TABLET PO (09:46)
[2022-04-24] MEDS: FOLIC ACID 1 MG TABLET BY MOUTH (09:46)
[2022-04-24] MEDS: ASCORBIC ACID 500 MG TABLET PO (09:46)
[2022-04-24] MEDS: TAMSULOSIN HCL 0.4 MG CAPSULE PO (09:46)
[2022-04-24] MEDS: DULoxetine HCL 20 MG CAPSULE.DR PO (09:46)
[2022-04-24] MEDS: THIAMINE HCL 100 MG TABLET BY MOUTH (09:46)
[2022-04-24] MEDS: CHOLECALCIFEROL 1,000 UNITS TABLET 1000 UNITS BY MOUTH (09:46)
[2022-04-24] MEDS: SILVERGEL (ELTA) 45 ML 1 APPLIC TOPICAL (09:47)
[2022-04-24] MEDS: PREGABALIN (*CRX) 75 MG CAPSULE PO ×2 (09:54→14:19)
[2022-04-24 10:00] VITALS: BP 98/56; PULSE 79; RESP 12; TEMP 36.4; O2SAT 98
--- NOTE | 2022-04-24 10:05 | PCNFU ---
Nutrition Follow-Up Complete: Increased Nutrient needs as related to wounds as evidenced by Pressue ulcers noted. Goal: Adequate Intake of at least 75% of meals/supplements - Progressing toward goal Pt current nutrition is Diabetic consistent carbs. Nutrition recommendation: Continue current diet orders and supplements. Last recorded weight is 46.3 kg. Bowel Motility: 04/22: +5, 04/23: +1 Labs Reviewed: 04/24: Hg 9.4, Hct 30.9, Na 138, K+ 3.8, Gluc 287 Meds Noted: Zinc, Thiamine, Vit D, Ferrous Sulfate, KCL powder, Synthroid, NovoLog,Cymbalta, Lyrica Skin:stage II pressure ulcer-ankle, Deep Tissue-saccum. Wound pictures reviewed. Additional Notes: Patient is tolerating Diabetic diet. Oral intake has been improved to 50-100% of meals. Patient is also receiving diet supplements of Glucerna shakes TID providing an additional 220 kcals and 10 gms protein and Sincere BID for wound healing providing 90 kcals and 2.5 gms protein. Agree with diet orders and supplements RD will montior every 5 days.
[2022-04-24 11:59] LABS: Glucose Point of Care 300 mg/dl (65-105)
--- NOTE | 2022-04-24 12:18 | PM.DS ---
DS: Admitting Diagnosis Discharge Date 04/24/2022 Admitting Diagnosis Weakness DS: Discharge Diagnosis Discharge Diagnosis (1) Delirium due to general medical condition: Code(s): F05 - Delirium due to known physiological condition Status: Acute Assessment and Plan: Improved (2) Sepsis: Code(s): A41.9 - Sepsis, unspecified organism Status: Acute Assessment and Plan: upon arrival patient met the criteria for sepsis with fever, elevated lactic acid, elevated white count, acute mental status change, and possible source of infection UTI will follow-up on blood culture. With positive blood cultures. Patient did receive a days of ertapenem. (3) Acute kidney injury: Code(s): N17.9 - Acute kidney failure, unspecified Status: Acute Assessment and Plan: Creatinine improved (4) UTI (urinary tract infection) due to urinary indwelling Ellison catheter: Code(s): T83.511A - Infection and inflammatory reaction due to indwelling urethral catheter, initial encounter; N39.0 - Urinary tract infection, site not specified Status: Acute Assessment and Plan: Antibiotics for UTI Patient has received 8 days of ertapenem (5) Electrolyte abnormality: Code(s): E87.8 - Other disorders of electrolyte and fluid balance, not elsewhere classified Status: Acute Assessment and Plan: Monitor and replace (6) Leukocytosis: Code(s): D72.829 - Elevated white blood cell count, unspecified Status: Acute Assessment and Plan: CT noted Will reculture the patient. No fevers. Clinically he appears to be better but he still has ongoing leukocytosis. Imaging did show pneumonia. Will change his antibiotics to Levaquin to cover for Pseudomonas. Otherwise I am not convinced the pneumonia is causing this as he has very few respiratory symptoms. Otherwise he was previously treated with 8 days of ertapenem for his UTI and bacteremia. This should be treated appropriately. Possibly Related to Florinef. Await culture results but likely related to Florinef. (7) Pneumonia: Code(s): J18.9 - Pneumonia, unspecified organism Status: Acute Assessment and Plan: Patient was previously treated with ertapenem. Due to leukocytosis, I stop the ertapenem and put him on levofloxacin. This will help cover for Pseudomonas. Will trend WBCs and follow cultures. Plan Plan to discharge tomorrow if cultures remain negative DS: Summary Hospital Course Reason for hospitalization: ED-HPI narrative: ? This is a 57-year-old custodial patient with a history of recurring UTIs with sepsis with an EGD with a chief complaint of weakness.? The patient is typically a and O x4 but is nonverbal at this point.? He is unable provide any information.? He was febrile custodial and EMS was called. ED-Planning?this is a 57-year-old male from custodial with history of recurrent UTIs sepsis presenting ED febrile, tachycardic and hypotensive.? A high suspicion for sepsis at this time.? Full sepsis workup has been ordered.? Patient has been given 30 cc per kg of lactated Ringer's and IV Tylenol. I consulted Infectious Disease pharmacist we agreed the patient should be placed on ceftriaxone and vancomycin due to his history of multi-drug resistant organisms. ? This patient was re-evaluated after his initial fluid bolus and his heart rate has decreased, his blood pressure has increased and his mentation has improved.? Lab work was significant for an elevated white blood cell count, as well as an acute kidney injury without? hyperkalemia.? Urinalysis was indicative of UTI.? It has been sent for urine culture.? The patient will be admitted to the hospital for further management of his sepsis.? The hospitalist, Dr. Howard,? was informed of the negative for patient and has agreed to take the admission.? The patient will be admitted to the [facility] with tele floor. interval histor
[2022-04-24 13:21] VITALS: BP 95/45; PULSE 71; RESP 16; TEMP 36.1; O2SAT 96
[2022-04-24] MEDS: INSULIN ASPART (*BKC) 100 UNITS/ML 10 UNITS SUB-Q (14:07)
[2022-04-24] MEDS: INSULIN GLARGINE (*BKC) 100 UNITS/ML 15 UNITS SUB-Q (14:08)
[2022-04-24 14:16] LABS: Glucose Point of Care 426 mg/dl (65-105)
[2022-04-24 16:16] LABS: Glucose Point of Care 286 mg/dl (65-105)
== END 2022-04-24 17:00 | DRG 466 ==
LOC: ANHED 17:03 → ANH2MED 18:34
PROVIDERS: Chiropractor; Internal Medicine; Admitting Provider Student in an Organized Health Care Education/Training Program; Emergency Provider Emergency Medicine; PCP Internal Medicine; Visit Provider Family Medicine
DX: A41.51 Sepsis due to Escherichia coli [E. coli]; T83.511A Infection and inflammatory reaction due to indwelling urethral catheter, initial encounter; F05 Delirium due to known physiological condition; N17.9 Acute kidney failure, unspecified; T38.0X5A Adverse effect of glucocorticoids and synthetic analogues, initial encounter; N39.0 Urinary tract infection, site not specified; Z16.12 Extended spectrum beta lactamase (ESBL) resistance; Z16.21 Resistance to vancomycin; J18.9 Pneumonia, unspecified organism; Z20.822 Contact with and (suspected) exposure to COVID-19; E87.8 Other disorders of electrolyte and fluid balance, not elsewhere classified; D64.9 Anemia, unspecified; E11.42 Type 2 diabetes mellitus with diabetic polyneuropathy; E11.43 Type 2 diabetes mellitus with diabetic autonomic (poly)neuropathy; E86.0 Dehydration; E46 Unspecified protein-calorie malnutrition; F17.210 Nicotine dependence, cigarettes, uncomplicated; K31.84 Gastroparesis; E03.9 Hypothyroidism, unspecified; K85.90 Acute pancreatitis without necrosis or infection, unspecified; M85.80 Other specified disorders of bone density and structure, unspecified site; R47.9 Unspecified speech disturbances; L89.152 Pressure ulcer of sacral region, stage 2; Z88.0 Allergy status to penicillin; Z68.1 Body mass index [BMI] 19.9 or less, adult; Z79.4 Long term (current) use of insulin; Z86.711 Personal history of pulmonary embolism; Z96.89 Presence of other specified functional implants
CPT/HCPCS: 36415; 71045; 71260; 74177; 76775; 80048; 80053; 80069; 81001; 82948; 83605; 83735; 84132; 85025; 85027; 85610; 85730; 86140; 87040; 87077; 87086; 87088; 87186; 87493; 93005; 96365; 96375; 97110; 97161; 97166; 97530; 97535; 99285; A9270; C9803; J0131; J0696; J1335; J1644; J1815; J1956; J3370; J3475; J3480; J7030; J7040; J7120; Q9967; U0003; U0005

== ENCOUNTER 2022-04-25 10:38 | Inpatient (IN) | payer OTHER, SELFPAY ==
[2022-04-25] VITALS (12 sets, daily range): BP systolic 73–111; BP diastolic 54–73; PULSE 67–81; RESP 12–28; TEMP 36.1–36.5; O2SAT 97–100; BMI 22.7
--- NOTE | ~2022-04-25 | XR_ITS ---
EXAMINATION: XR chest PICC line INDICATION: PICC insertion TECHNIQUE: Portable AP chest at 1335 hours COMPARISON: 04/25/2022 FINDINGS: A right upper extremity PICC ends with its tip in the proximal superior vena cava. There ar e minimal airspace opacities in the medial right lung base. No pleural effusion or pneumothorax. The heart size is normal. IMPRESSION: 1. Right upper extremity PICC ending with its tip in the proximal superior vena cava. 2. Airspace opacities in the medial right lower lobe, consistent with atelectasis versus pneumonia. Reviewed, dictated and finalized at location A. IMPRESSION: 1. Right upper extremity PICC ending with its tip in the proximal superior vena cava. 2. Airspace opacities in the medial right lower lobe, consistent with atelectas is versus pneumonia.
--- NOTE | ~2022-04-25 | XR_ITS ---
EXAMINATION: XR chest 1V portable DATE: 05/04/2022 07:04 INDICATION: Verify PICC line position TECHNIQUE: frontal view of the chest was obtained. COMPARISON: Chest radiograph dated 05/02/2022 FINDINGS: Right upper extremity peripherally inserted central venous catheter (PICC) tip unchanged at the cepha lad superior vena cava. Emphysema with increased lucency and some architectural distortion in the upper lung zones. Reticular and airspace opacities in bilateral lower lung zones unchanged on the left and more prominent and wi th interval increase on the right. No pleural effusion or pneumothorax. The cardiomediastinal silhoue tte is normal. IMPRESSION: 1. Unchanged right PICC line tip in the cephalad superior vena cava. 2. Opacities in the bilateral lower lung zones, greater and with interval worsening on the right whic h could represent pneumonia,, atelectasis, mild pulmonary edema or some combination thereof. 3. Emphysema. Reviewed, dictated and finalized at location A. IMPRESSION: 1. Unchanged right PICC line tip in the cephalad superior vena cava. 2. Opacities in the bilateral lower lung zones, greater and with interval worse vimal on the right which could represent pneumonia,, atelectasis, mild pulmonary edema or some combination thereof. 3. Emphysema.
--- NOTE | ~2022-04-25 | XR_ITS ---
EXAMINATION: XR fluoroscopy no charge DATE: 04/30/2022 13:02 INDICATION: Catheter insertion into the bladder. Cystogram. TECHNIQUE: 123 fluoroscopic images of the elbow is were obtained during procedure performed by Dr. Oliver ortega. Radiologist was not present for the imaging or procedure. The amount of fluoroscopy time used d uring this procedure was 0.4 minutes. COMPARISON: 04/25/2022 FINDINGS: Driver/Sales Workers image demonstrates a Ellison catheter projecting over the pubic symphysis with distal tip in the region of the bladder. Subsequent images obtained during contrast injection demonstrate progressive f illing of the bladder with contrast. No evident extraluminal extravasation of contrast appreciated. IMPRESSION: 1. Ellison catheter and contrast within the bladder. See procedure note for further detail. Reviewed, dictated and finalized at location A. IMPRESSION: 1. Ellison catheter and contrast within the bladder. See procedure note for furth er detail.
--- NOTE | ~2022-04-25 | CT_ITS ---
EXAMINATION: CT guide absc cath placement DATE: 04/25/2022 16:19 INDICATION: Abscess of the penis and scrotum. TECHNIQUE: The procedure including the risks, benefits, and alternatives was discussed with the patie nt. Risks discussed included bleeding and infection. The patient understood the risks and benefits an d agreed to proceed. The skin overlying the suprapubic region was prepped and draped in usual sterile fashion. Anesthetic was administered with 1% lidocaine subcutaneously. An 18 gauge trochar needle w as inserted into the bladder with CT guidance. The needle was exchanged over a wire for 6 Jamaican, 8 F rench, 10 Jamaican, and 12 Jamaican dilators and then for a 12 Jamaican pigtail catheter. The catheter was stitched to the skin, and a sterile dressing was applied. The mA was adjusted according to patient si ze. Iterative reconstruction technique was employed. The dose-length product was 115.59 mGy-cm. There were no immediate complications. FINDINGS: CT images demonstrate the catheter within the bladder. IMPRESSION: 1. Successful CT-guided suprapubic bladder catheter placement. Reviewed, dictated and finalized at location A.
--- NOTE | ~2022-04-25 | XR_ITS ---
EXAMINATION: XR chest 2V DATE: 04/25/2022 13:32 INDICATION: Hypotension. TECHNIQUE: Frontal and lateral views of the chest were obtained. COMPARISON: Chest single view 04/20/2022, chest CT 04/18/2022 FINDINGS: There are lucencies in the lungs, consistent with emphysema. There are airspace opacities i n left lower lobe, consistent with pneumonia. No pleural effusion or pneumothorax. The heart size is normal. There are old healed bilateral rib fractures. IMPRESSION: 1. Improved airspace opacities in left lower lobe, consistent with pneumonia. 2. Emphysema. Reviewed, dictated and finalized at location A.
--- NOTE | ~2022-04-25 | CT_ITS ---
EXAMINATION: CT pelvis w con DATE: 04/25/2022 13:12 INDICATION: Abscess in scrotum. TECHNIQUE: Computed tomography (CT) of the pelvis was performed with 96 mL Omnipaque 350 intravenous contrast. Automated exposure control and iterative reconstruction technique were employed. The dose-l ength product was 123.01 mGy-cm. COMPARISON: CT abdomen and pelvis 04/18/2022 FINDINGS: There are no dilated loops of bowel. There is wall thickening of the rectosigmoid. There is diffuse bladder wall thickening. There is a 6 mm stone in the bladder. There is gas in the bladder l umen. There is a 5.5 x 3.4 x 3.1 cm rim-enhancing fluid collection with gas involving the bulbar uret hra and extending into the scrotum. There is fat stranding overlying the sacrum, consistent with infl ammation. No specific evidence of sacral osteomyelitis. IMPRESSION: 1. 5.5 x 3.4 x 3.1 cm abscess involving the penile urethra and scrotum, which measured 5.2 x 2.7 x 3. 0 cm on 04/18/2022. 2. Wall thickening of the bladder, consistent with cystitis. 3. Wall thickening of the rectosigmoid, consistent with colitis. Reviewed, dictated and finalized at location A. IMPRESSION: 1. 5.5 x 3.4 x 3.1 cm abscess involving the penile urethra and scrotum, which m easured 5.2 x 2.7 x 3.0 cm on 04/18/2022. 2. Wall thickening of the bladder, consistent with cystitis. 3. Wall thickening of the rectosigmoid, consistent with colitis.
--- NOTE | ~2022-04-25 | XR_ITS ---
EXAMINATION: XR chest port-a-cath/central Exam Date/Time: 04/25/2022 15:35 CDT HISTORY: central line confirmation Comparison: 04/25/2022 at 1:29 PM. RESULT: Lines, tubes, and devices: New right IJ central line terminating at the distal SVC. Lungs and pleura: Clear. Cardiomediastinal silhouette: Stable. Other: No acute osseous or upper abdominal finding. IMPRESSION: New right IJ central line, in good position. Reviewed, dictated and finalized at location K.
--- NOTE | 2022-04-25 10:44 | ECG_ITS ---
Measurements Intervals [place] Rate: 74 P: 82 PA: 141 QRS: 97 QRSD: 98 T: 88 QT: 383 QTc: 426 Interpretive Statements SINUS RHYTHM WITH OCCASIONAL SUPRAVENTRICULAR PREMATURE COMPLEXES BORDERLINE RIGHT AXIS DEVIATION [QRS AXIS > 90] COMPARED TO ECG 04/09/2022 15:25:16 SINUS RHYTHM NOW PRESENT Electronically Signed On 04-25-2022 13:42:33 CDT by Antonietta Mills M.D.
--- NOTE | 2022-04-25 11:58 | PC.NURSE ---
After one attempt to place a 16fr loera catheter without success, switched to a coude catheter without success, but upon removing catheter noted hardened area under penis above testicles. Pressed slight pressure on the area and purulent drainage started coming from tip of patient's penis. It continued to flow out of tip of penis, called Dr. Olivas to bedside to show her. Dr. Olivas noted the hardened area and large amount of purulent drainage. Sample of purulent drainage collected and no loera placed per Dr. Olivas's verbal order.
[2022-04-25 12:03] LABS: Appearance Urine Cloudy (Clear); Bilirubin Urine Negative (Negative); Blood Urine 3+ (Negative); Color Urine Yellow (Yellow); Glucose Urine UA Negative (Negative); Ketones Urine Negative (Negative); Leukocyte Esterase Ur 2+ LEU/UL (Negative); Nitrate Urine Negative (Negative); Protein Urine 2+ mg/dL (Negative); Specific Grav Ur 1.025 (1.001-1.035); Urobilinogen Urine 0.2 mg/dL (<2.0); pH Urine 5.5 (5.0-9.0)
[2022-04-25 12:08] LABS: Budding Yeast Urine Present /hpf; Mucus Urine Rare /lpf; RBC Urine >75 /hpf (0-2); WBC Clumps Urine Present /HPF; WBC Urine >75 /hpf
[2022-04-25 12:10] LABS: Add Urine Microscopic? YES
[2022-04-25] MEDS: CLINDAMYCIN 600 MG/D5W 50 ML 600 MG/50 ML PIGGYBACK 100 MG IVPB (12:12)
--- NOTE | 2022-04-25 12:24 | ED.WEAKNESS ---
HPI - Weakness General Chief complaint: Weakness Stated complaint: weakness - low bp Time Seen by Provider: 04/25/22 10:43 History of Present Illness HPI Narrative: 57-year-old male presents here today from residential due to being less responsive. He had just been discharged for possible sepsis with unknown cause but likely UTI. Patient denying pain anywhere. He does state that he feels tired. Related Data Home Medications Medication Instructions Recorded Confirmed levothyroxine 75 mcg tablet 75 mcg PO DAILY 11/06/21 04/09/22 (Euthyrox) Daily Vitamin C Pack 500 mg PO Q12H 11/28/21 04/09/22 Humalog U-100 Insulin See Rx Instructions .Route .COMPLEX 11/28/21 04/09/22 ferrous sulfate 325 mg (65 mg 325 mg PO TIDWM 11/30/21 04/09/22 iron) tablet midodrine 10 mg tablet 10 mg BYMOUTH TID 11/30/21 04/09/22 acetaminophen 500 mg tablet 1,000 mg PO Q6H PRN Mild to 04/09/22 04/09/22 moderate pain ergocalciferol (vitamin D2) 1,250 1,250 mcg PO WEEKLY 04/09/22 04/09/22 mcg (50,000 unit) capsule finasteride 1 mg tablet 1 mg PO DAILY 04/09/22 04/09/22 gabapentin 100 mg capsule 200 mg PO BID 04/09/22 04/09/22 pregabalin 75 mg capsule (Lyrica) 75 mg PO TID 04/09/22 04/09/22 Allergies Allergy/AdvReac Type Severity Reaction Status Date / Time amoxicillin Allergy Rash Verified 04/09/22 19:34 Penicillins Allergy Rash Verified 04/09/22 19:34 Review of Systems Review of Systems: CONST: No fever. HEENT: No sore throat C/V: No chest pain RESP: No cough GI: States he feels hungry : No dysuria. M/S: No joint pain. SKIN: No rash. NEURO: [No headache or focal numbness or weakness] PSYCH: [No depression] [facility] Past Medical History Medical History Bacteremia due to Klebsiella pneumoniae (11/2021) Bacteremia due to Klebsiella pneumoniae Chronic anemia Diabetic peripheral neuropathy Fecal incontinence Gastroparesis History of alcohol abuse Hypothyroidism Insulin dependent type 2 diabetes mellitus Hemoglobin A1c was greater than 14% on 11/07/2021. Orthostatic hypotension (~11/2021) Osteopenia determined by x-ray Pancreatic insufficiency Pancreatitis Protein calorie malnutrition Pulmonary embolism Thoracic compression fracture T9, T10, T12 Tobacco dependence Weakness generalized Surgical History Surgical History History of endoscopic retrograde cholangiopancreatography Patient reports pancreatic stent x2. Family History Family History Sibling Depression Family history of pancreatic disease Mother Acute myocardial infarction, Onset Age: 60 Social History Social History Social History: Healthcare power of pet sitter: Beth Rodriguez, sister. Code status: Full code. Smoking packs per day: 8 Smoking cigarettes per day: 160.0 Years smoked: 45 Smoking pack-years: 360.00 Smoking status: Current every day smoker Tobacco type: cigarettes Additional smoking assessment comments: Three packs per day until 2011 then down to<1 pack per day. Alcohol intake: unknown Alcohol use details: Quit 2009 Substance use: unknown Substance use type: methamphetamine Last use: 02/23/22 Additional living arrangements comments: The patient lives in [place]. Additional occupation/education comments: Disabled. Spiritual care concerns: No Exam Narrative: EXAMINATION OF ORGAN SYSTEMS/BODY AREAS: Constitutional: Vital signs per nursing GENERAL: Tired and eyes closed HEAD: Normal with no signs of head trauma. EYES: EOMI, conjunctiva normal ENT: Hearing grossly intact LUNGS: Nonlabored breathing. HEART: [Regular rate and rhythm] ABD: [Soft], [nontender to palpation] : Small decub ulcer; purulence from meatus around indwelling Ellison EXT: Normal range of motion SKIN: [No rashes or lesions.
[2022-04-25] MEDS: LACTATED RINGERS 1,000 ML 999 ML IV CONT (12:25)
[2022-04-25 12:26] LABS: Basophils Absolute Auto 0.1 K/mm3 (0.0-0.1); Basophils Percent Auto 0.6 % (0.2-1.2); Eosinophils Absolute Auto 0.4 K/mm3 (0-0.3); Eosinophils Percent Auto 2.3 % (0-4.4); Hematocrit 26.1 % (42.0-52.0); Immature Granulocyte Absolute 0.14 K/mm3 (0.00-0.031); Immature Granulocyte Percent A 0.8 % (0-0.5); Lymphocytes Absolute Auto 2.21 K/mm3 (0.9-3.2); Lymphocytes Percent Auto 12.5 % (18.3-44.2); Mean Corpuscular HGB Conc 30.7 g/dl (32-36); Mean Corpuscular Hemoglobin 28.1 pg (26-34); Mean Corpuscular Volume 91.6 fl (80-100); Mean Platelet Volume 9.8 fl (7.4-10.4); Monocytes Absolute Auto 0.8 K/mm3 (0.1-0.6); Monocytes Percent Auto 4.2 % (2.6-8.5); Neutrophils Absolute Auto 14.1 K/mm3 (1.3-6.7); Neutrophils Percent Auto 79.6 % (45.5-73.1); Platelet Count Result 183 k/mm3 (150-375); Red Blood Count 2.85 M/mm3 (4.6-6.20); Red Cell Distribution Width 15.1 % (11.5-14.5); White Blood Count 17.7 K/mm3 (4.5-10.0)
[2022-04-25 12:37] LABS: INR 1.4; Prothrombin Time 16.2 Seconds (11.1-14.7)
[2022-04-25 12:38] LABS: Partial Thromboplastin Time 37.8 SECONDS (22.3-36.8)
[2022-04-25 12:40] LABS: Alanine Aminotransferase 6 U/L (6-50); Albumin Level 2.5 g/dL (3.5-5.1); Alkaline Phosphatase 156 U/L (38-126); Anion Gap 8 mmol/L (8-16); Aspartate Amino Transferase 13 U/L (17-59); Bilirubin,Total 0.3 mg/dL (0.2-1.3); Blood Urea Nitrogen 28 mg/dL (9-20); Calcium 7.2 mg/dL (8.4-10.2); Carbon Dioxide 15 mmol/L (22-30); Chloride 118 mmol/L (98-107); Estimated Glomerular Filt Rate 52; Glucose 83 mg/dL (65-110); Potassium 3.5 mmol/L (3.4-5.0); Sodium 141 mmol/L (137-145)
[2022-04-25] MEDS: fentaNYL CITRATE INJ (*CRX) 100 MCG/2 ML VIAL 50 MCG IV PUSH (14:03)
--- NOTE | 2022-04-25 14:24 | WPDURCON ---
Assessment and Plan Assessment and plan (1) Sepsis: Code(s): A41.9 - Sepsis, unspecified organism Status: Acute (2) Scrotal abscess: Code(s): N49.2 - Inflammatory disorders of scrotum Status: Acute (3) Trauma of urethra: Code(s): S37.30XA - Unspecified injury of urethra, initial encounter Status: Acute (4) Other retention of urine: Code(s): R33.8 - Other retention of urine Status: Acute Plan 57 yo WM with chronic urinary retention managed with indwelling loera has been found to have an abscess involving his bulbar urethra and scrotum. At the bedside, I was unable to place a coude catheter. After obtaining verbal permission, I proceeded to perform a flexible cystoscopy at the bedside. After prepping and draping him, I advanced the cystoscope into the penile urethra. At the level of the bulbar urethra, there was complete obliteration of the urethral lumen. Despite careful inspection, I could not find the urethral lumen. There was a large cavity with purulent debris posteriorly. At this point, I removed the cystoscope and was able to express the cysto fluid and the remaining purulent debris out of the meatus. There was decompression of the abscess cavity. I did place the loera catheter with the tip in the abscess cavity with 2 cc in the balloon to act as an abscess drain. I have spoken with Dr. Son with interventional radiology. He will be performing a CT-guided placement of suprapubic tube later today. Dr. Olivas has started broad-spectrum antibiotics based on his prior admission culture results. will continue to follow. Urology Consult Note HPI Date Seen: 04/25/22 Requesting Physician: Deisy Primary Care Provider: Frantz Nowak MD Consult Narrative Narrative: Shad Rodriguez is a 57 year old male with poorly controlled DM who is known to my partner Dr. Rivera. He has had issues with urinary retention since the spring 2021. From the records, it looks like he has been managed with a loera catheter for months. He was just discharged to his [facility] yesterday after having been admitted to [facility] with MDR Ecoli urosepsis. He presented to ER today with altered mental status, weakness and hypotension. Was noted to have purulent drainage from urethra. ER staff removed loera but were unable to place new loera. When they palpated the scrotum, there was return of large amount of purulence from the meatus. I was consulted for further management. Pelvic CT in ER today showed 5.5 cm rim-enhancing fluid collection involving the bulbar urethra and extending into the scrotum. Of note, there was a 5cm fluid collection in the same location on CT 04/18/22. CT also noted inflammation around bladder and colon, consistent with cystitis and colitis. Review of Systems Review of Systems: 57 yr old cachetic appearing male in no acute distress Constitutional: Comments: fatigue and weakness Eyes: Comments: none ENT: Comments: none Cardiovascular: Comments: none Respiratory: Comments: none Gastrointestinal: Comments: none Genitourinary: Comments: see HPI Musculoskeletal: Comments: none Integumentary/Breasts: Comments: none Neurologic: Comments: A&Ox 3 Psychiatric: Comments: none Endocrine: Comments: poorly controlled DM Hematologic/Lymphatic: Comments: DVT previoulsy on xarelto Allergic/Immunologic: Comments: none [facility] Past Medical History Medical History Bacteremia due to Klebsiella pneumoniae (11/2021) Bacteremia due to Klebsiella pneumoniae Chronic anemia Diabetic peripheral neuropathy Fecal incontinence Gastroparesis History of alcohol abuse Hypothyroidism Insulin dependent type 2 diabetes mellitus Hemoglobin A1c was greater than 14% on 11/07/2021. Orthostatic hypotension (~11/2021) Osteopenia determined by x-ray Pancreatic insufficiency Pancreatitis Protein calorie malnutrition Pul
[2022-04-25 14:58] LABS: SARS-CoV-2 RNA PCR Negative
--- NOTE | 2022-04-25 15:00 | PC.NURSE ---
Verbal consent obtained from patient for central line placement.
--- NOTE | 2022-04-25 15:43 | PC.NURSE ---
Patient care report called to ASHLEY Harding in ICU. All questions answered at this time.
--- NOTE | 2022-04-25 15:43 | PC.NURSE ---
patient taken to CT scan at this time. they are aware to call director underwriter sales if any problems/concerns arise. patient does have an ICU bed, if needed director underwriter sales will be available for transport to ICU from CT.
--- NOTE | 2022-04-25 16:20 | ADMGEN ---
This patient, Shad Rodriguez, was admitted to Intensive Care Unit-8. Patient/family oriented to hospital policies and general routines including ID bracelet, bed and alarms, visiting hours, pain management, procedures, bathroom and other care routines, personal items, smoking policy, room service/diet, and visiting hours. Information on how to activate the Rapid Response Team has been discussed. Patient/Family are encouraged to report perceived risks to care and to ask questions if they do not understand what they are told or what they should do.
--- NOTE | 2022-04-25 16:39 | PM.IMHP ---
H&P: HPI History of Present Illness Date/Time: 04/25/22 16:39 Chief Complaint: Weakness Narrative: This is a 57-year-old male patient who is currently at [facility]. He was brought here to be assessed for decreased responsiveness. The patient was just discharged from here on 04/24/2022. CT of the abdomen shows the following1. 5.5 x 3.4 x 3.1 cm abscess involving the penile urethra and scrotum, which measured 5.2 x 2.7 x 3.0 cm on 04/18/2022. 2. Wall thickening of the bladder, consistent with cystitis. 3. Wall thickening of the rectosigmoid, consistent with colitis. Urology was consulted and a coude was unable to be placed. The patient had a flexible cystoscopy at the bedside. A suprapubic CT-guided placement of a suprapubic tube was placed today by Interventional Radiology. The patient does have a history of having chronic urinary retention managed with indwelling Ellison catheter. The patient was found to have an abscess involving his bubble or urethra and scrotum today. The patient was started on lactated Ringer's, vancomycin, clindamycin and Invanz. A central line was placed since the patient was hypotensive in the emergency room. Levophed has been ordered but not started as of yet as the patient has had a map greater than 65. 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 Patient is being admitted to inpatient services on the date of service 04/25/2022. Review of Systems Review of Systems: See HPI All systems reviewed & are unremarkable except as noted in HPI and below Constitutional: Constitutional: Reports as per HPI and Reports no additional constitutional complaints Eyes: Eyes: Reports as per HPI and Reports no additional eye complaints ENT: Reports system reviewed and no additional complaints, except as documented and Reports Normal hearing present Cardiovascular: Cardiovascular: Reports no additional cardiovascular complaints Respiratory: Respiratory: Reports no additional respiratory complaints and Reports no additional respiratory complaints Gastrointestinal: Gastrointestinal: Reports as per HPI and Reports no additional gastrointestinal complaints Musculoskeletal: Musculoskeletal: Reports no additional musculoskeletal complaints Integumentary/Breasts: Skin/Breast: Reports system reviewed and no additional complaints, except as docu and Reports as per HPI Neurologic: Reports system reviewed and no additional complaints, except as documented, Reports as per HPI and Reports Normal hearing present Psychiatric: Psychiatric: Reports no additional psychiatric complaints and Reports as per HPI Endocrine: Endocrine: Reports no additional endocrine complaints Hematologic/Lymphatic: Hematologic/Lymphatic: Reports no additional hematologic/lymphatic complaints Allergic/Immunologic: Allergic/Immunologic: Reports no additional allergic/immunologic complaints [facility] Past Medical History Medical History (Updated 04/25/22 @ 18:52 by Charla Douglas NP) Bacteremia due to Klebsiella pneumoniae (11/2021) Bacteremia due to Klebsiella pneumoniae Chronic anemia Diabetic peripheral neuropathy Fecal incontinence Gastroparesis History of alcohol abuse Hypothyroidism Insulin dependent type 2 diabetes mellitus Hemoglobin A1c was greater than 14% on 11/07/2021. Orthostatic hypotension (~11/2021) Osteopenia determined by x-ray Pancreatic insufficiency Pancreatitis Protein calorie malnutrition Pulmonary embolism Thoracic compression fracture T9, T10, T12 Tobacco dependence Weakness generalized Surgical History Surgical History (Updated 04/25/22 @ 18:19 by Charla Douglas NP) History of endoscopic retrograde cholangiopancreatography Patient reports pancreatic stent x2. History of tonsillectomy Family History Family History Sibling Depression Family history of pancreatic disease Mother Acute myocardial infarction,
[2022-04-25] MEDS: ERTAPENEM 1 GM/NS 50 ML 1 GM/50 ML BAG IVPB (17:24)
[2022-04-25] MEDS: CENTRAL LINE FLUSH 10 ML IV PUSH ×2 (17:28→21:35)
[2022-04-25 21:30] LABS: Glucose Point of Care 160 mg/dl (65-105)
[2022-04-25] MEDS: FAMOTIDINE 20 MG/2 ML VIAL IV PUSH (21:32)
[2022-04-25] MEDS: INSULIN GLARGINE (*BKC) 100 UNITS/ML 15 UNITS SUB-Q (21:34)
[2022-04-26] VITALS (18 sets, daily range): BP systolic 86–120; BP diastolic 49–73; PULSE 60–75; RESP 12–20; TEMP 36.4–36.8; O2SAT 97–100
[2022-04-26] MEDS: CENTRAL LINE FLUSH 10 ML IV PUSH ×4 (05:56→20:59)
[2022-04-26] MEDS: LEVOTHYROXINE SODIUM 75 MCG TABLET PO (05:56)
[2022-04-26 06:04] LABS: Basophils Absolute Auto 0.1 K/mm3 (0.0-0.1); Basophils Percent Auto 0.8 % (0.2-1.2); Eosinophils Absolute Auto 0.4 K/mm3 (0-0.3); Eosinophils Percent Auto 2.6 % (0-4.4); Hematocrit 26.9 % (42.0-52.0); Hemoglobin 8.3 g/dL (14.0-18.0); Immature Granulocyte Absolute 0.08 K/mm3 (0.00-0.031); Immature Granulocyte Percent A 0.5 % (0-0.5); Lymphocytes Absolute Auto 2.78 K/mm3 (0.9-3.2); Lymphocytes Percent Auto 17.7 % (18.3-44.2); Mean Corpuscular HGB Conc 30.9 g/dl (32-36); Mean Corpuscular Hemoglobin 27.5 pg (26-34); Mean Corpuscular Volume 89.1 fl (80-100); Mean Platelet Volume 9.4 fl (7.4-10.4); Monocytes Absolute Auto 0.8 K/mm3 (0.1-0.6); Neutrophils Absolute Auto 11.6 K/mm3 (1.3-6.7); Neutrophils Percent Auto 73.4 % (45.5-73.1); Platelet Count Result 171 k/mm3 (150-375); Red Blood Count 3.02 M/mm3 (4.6-6.20); Red Cell Distribution Width 14.9 % (11.5-14.5); White Blood Count 15.7 K/mm3 (4.5-10.0)
[2022-04-26 06:27] LABS: Lactic Acid Reflex 0.6 mmol/L (0.7-2.0)
[2022-04-26 06:29] LABS: CRP 4.3 mg/dL (<1.0); Magnesium 1.7 mg/dL (1.6-2.3)
--- NOTE | 2022-04-26 08:03 | PM.IMPN ---
Progress Note: A&P Assessment and Plan (1) Sepsis: Code(s): A41.9 - Sepsis, unspecified organism Status: Acute Assessment and Plan: Urethral and scrotal abscess with sepsis status post suprapubic catheter placement Continue vasopressors, managed by headlight assembler Blood and urine cultures pending, vancomycin and ertapenem started April 25, 2022 Leukocytosis trending down Appreciate urology consultation (2) Abscess of scrotum: Code(s): N49.2 - Inflammatory disorders of scrotum Status: Acute Assessment and Plan: As above (3) UTI (urinary tract infection) due to urinary indwelling Ellison catheter: Code(s): T83.511A - Infection and inflammatory reaction due to indwelling urethral catheter, initial encounter; N39.0 - Urinary tract infection, site not specified Status: Acute Assessment and Plan: History of continued UTI as well as Klebsiella pneumoniae Of note: Blood cultures from earlier this month positive for ESBL, repeat cultures were negative, treated with ertapenem for 8 days after negative blood cultures. (4) Acute kidney injury: Code(s): N17.9 - Acute kidney failure, unspecified Status: Acute Assessment and Plan: Baseline appears to be 0.9-1.1, 1.4 on admission, repeat pending (5) Retention, urine: Code(s): R33.9 - Retention of urine, unspecified Status: Acute Assessment and Plan: Resolved status post suprapubic catheter placement (6) Insulin dependent type 2 diabetes mellitus: Code(s): E11.9 - Type 2 diabetes mellitus without complications; Z79.4 - technician terminal and repeater (current) use of insulin Status: Acute Assessment and Plan: Accu-Cheks plus intensive sliding scale insulin A1c pending but appears uncontrolled, sugars consistently over 300 Continue Lantus 15 units nightly, will likely need increased, wait for A1c (7) Hypotension: Code(s): I95.9 - Hypotension, unspecified Status: Acute Assessment and Plan: Patient on midodrine and fludrocortisone at baseline, appears to have chronic orthostatic hypotension, could have underlying POTS Consider outpatient cardiology workup (8) Chronic pancreatitis: Code(s): K86.1 - Other chronic pancreatitis Status: Acute Assessment and Plan: Long history of alcohol abuse with chronic pancreatitis, continue Creon (9) Alcohol dependence: Code(s): F10.20 - Alcohol dependence, uncomplicated Status: Acute Assessment and Plan: Continue thiamine, folic acid (10) BPH (benign prostatic hyperplasia): Code(s): N40.0 - Benign prostatic hyperplasia without lower urinary tract symptoms Status: Acute Assessment and Plan: Continue Flomax and finasteride, appreciate Urology consultation (11) Hypothyroidism: Code(s): E03.9 - Hypothyroidism, unspecified Status: Acute Assessment and Plan: Continue levothyroxine, last TSH was quite low, recheck pending (12) Murmur, cardiac: Code(s): R01.1 - Cardiac murmur, unspecified Status: Acute Assessment and Plan: Echo pending Plan DVT prophylaxis with Lovenox GI prophylaxis with PPI Code status full code Subjective Date/time seen: 04/26/22 08:03 Interval history: Patient with continuous diarrhea, this is baseline for him. No complaints. No overnight events noted. No chest pain or shortness of breath. No nausea, vomiting or diarrhea. No fevers or chills. Review of Systems Review of Systems: 12 point review of systems was assessed and was negative except as noted in the HPI Exam Narrative: General: No acute distress, alert and oriented per baseline, cachectic, chronically ill-appearing HEENT: Atraumatic, normocephalic, mucous membranes moist CV: Regular rate and rhythm, S1, S2 Lungs: Clear to auscultation bilaterally, no rales or crackles noted, no wheezes, good air entry Abdomen: Soft, nontender, nondistended Extremities: Sign
[2022-04-26 08:22] LABS: Hemoglobin A1C 9.8 % (<5.7)
--- NOTE | 2022-04-26 08:24 | WPDUROPN2 ---
Progress Note: A&P Assessment and Plan (1) Trauma of urethra: Code(s): S37.30XA - Unspecified injury of urethra, initial encounter Status: Acute (2) Abscess of scrotum: Code(s): N49.2 - Inflammatory disorders of scrotum Status: Acute (3) Other retention of urine: Code(s): R33.8 - Other retention of urine Status: Acute Plan 57 yr old male with chronic retention who has developed a urethroscrotal abscess. He is now s/p SP tube placement. Clinically improving- afebrile, wbc ct improving, BP stablized. Pending urine, blood and wound cultures. Continue broad-spectrum abx for now. Ellison currently acting as abscess drain with minimal output. Will keep it in place for now- possibly remove tomorrow if minimal output. Subjective Subjective Date/Time Seen: 04/26/22 08:24 Is feeling better. States he is hungry. Denies any pain. Had SP tube placed by IR yesterday. Good UOP. Afebrile. Review of Systems Review of Systems: 57 yo cachetic male in NAD Constitutional: Constitutional: Denies fatigue and Denies lethargy Eyes: Eyes: Reports no additional eye complaints ENT: Reports Normal hearing present Cardiovascular: Cardiovascular: Denies chest pain Respiratory: Respiratory: Denies dyspnea Gastrointestinal: Gastrointestinal: Denies abdominal pain Genitourinary: Genitourinary: Reports no additional male genitourinary complaints Exam Narrative: 57 yr old male currently in NAD; resting comfortably Const: General: comfortable and no acute distress HENMT: General nose exam: Normal nares present Eyes: General: appearance normal, both eyes and all related structures Neck: Neck: supple Resp: Effort & Inspection: normal respiratory effort Cardio: Rate: regular rate GI: Inspection: non-distended GI Palp: Yes Soft to palpation : Other: SP tube in place draining clear yellow urine. Ellison catheter in abscess cavity with minimal output of blood-tinged fluid. I palpated the abscess cavity with minimal drainage of blood-tinged fluid from meatus. Fluctuance has resolved Urinary Catheter: Urinary Catheter: patent and draining and urine clear Neuro: Speech: normal speech Psych: Mental Status: mental status grossly normal Objective Data Vital Signs Vital Signs: Vital Signs - 24 hr 04/25/22 10:34 04/25/22 10:42 04/25/22 15:16 Temperature 36.1 C L Pulse Rate 81 79 70 Respiratory Rate 16 Blood Pressure 73/54 L 96/63 L Pulse Oximetry 100 Oxygen Delivery 04/25/22 15:23 04/25/22 15:26 04/25/22 15:36 Temperature Pulse Rate 71 68 Respiratory Rate 15 13 Blood Pressure 91/63 L 91/58 L 111/73 Pulse Oximetry 100 100 Oxygen Delivery 04/25/22 15:36 04/25/22 17:20 04/25/22 18:00 Temperature Pulse Rate 70 69 76 Respiratory Rate 16 13 Blood Pressure 91/62 L Pulse Oximetry 100 100 Oxygen Delivery 04/25/22 18:00 04/25/22 16:00 04/25/22 20:00 Temperature Pulse Rate 76 69 Respiratory Rate 28 H Blood Pressure 90/56 L Pulse Oximetry 100 Oxygen Delivery Room Air 04/25/22 20:00 04/25/22 21:00 04/25/22 22:00 Temperature 36.5 C Pulse Rate 70 67 73 Respiratory Rate 16 12 13 Blood Pressure 92/59 L 97/67 L 100/67 Pulse Oximetry 100 100 97 Oxygen Delivery 04/25/22 20:00 04/25/22 22:00 04/25/22 23:00 Temperature Pulse Rate 73 68 Respiratory Rate 20 Blood Pressure 93/64 L Pulse Oximetry 100 98 Oxygen Delivery Room Air 04/26/22 00:00 04/26/22 00:00 04/26/22 00:00 Temperature 36.7 C Pulse Rate 68 66 Respiratory Rate 12 Blood Pressure 96/68 L Pulse Oximetry 98 98 Oxygen Delivery Room Air 04/26/22 01:00 04/26/22 02:00 04/26/22 02:00 Temperature Pulse Rate 72 75 75 Respiratory Rate 18 18 Blood Pressure 98/53 L 94/49 L Pulse Oximetry 98 98 Oxygen Delivery 04/26/22 03:00 04/26/22 04:00 04/26/22 04:00 Temperature 36.8 C Pulse Rate 72 70 65 Respiratory Rat
[2022-04-26 08:26] LABS: Glucose Point of Care 86 mg/dl (65-105)
[2022-04-26] MEDS: TAMSULOSIN HCL 0.4 MG CAPSULE PO (08:57)
[2022-04-26] MEDS: ZINC SULFATE 220 MG CAPSULE PO (08:57)
[2022-04-26] MEDS: SODIUM BICARBONATE TAB 650 MG TABLET PO ×2 (08:57→18:04)
[2022-04-26] MEDS: THIAMINE HCL 100 MG TABLET BY MOUTH (08:57)
[2022-04-26] MEDS: NICOTINE (*PBKC) 21 MG PATCH 1 PATCH TRANSDERM (08:58)
[2022-04-26] MEDS: FAMOTIDINE 20 MG/2 ML VIAL IV PUSH ×2 (08:58→20:58)
[2022-04-26] MEDS: ENOXAPARIN 40 MG/0.4 ML SYRINGE SUB-Q (08:58)
[2022-04-26] MEDS: MIDODRINE HCL 10 MG TABLET BY MOUTH ×3 (08:58→18:05)
[2022-04-26] MEDS: GABAPENTIN 100 MG CAPSULE 200 MG PO ×2 (08:58→18:03)
[2022-04-26] MEDS: MAGNESIUM OXIDE 400 MG TABLET PO (08:58)
[2022-04-26] MEDS: FOLIC ACID 1 MG TABLET BY MOUTH (08:58)
[2022-04-26] MEDS: DULoxetine HCL 20 MG CAPSULE.DR PO (08:59)
[2022-04-26] MEDS: LIPASE/AMYLASE/PROTEASE 12,000 UNITS CAP 2 CAP PO ×3 (08:59→18:03)
[2022-04-26] MEDS: FLUDROCORTISONE ACETATE 0.1 MG TABLET PO (08:59)
[2022-04-26] MEDS: FERROUS SULFATE 324 MG TABLET PO ×3 (08:59→18:02)
[2022-04-26] MEDS: ALBUMIN HUMAN 25% 25 GM/100 ML 100 ML IVPB ×3 (09:01→21:28)
[2022-04-26] MEDS: PREGABALIN (*CRX) 75 MG CAPSULE PO ×3 (09:01→20:57)
[2022-04-26] MEDS: PANTOPRAZOLE SODIUM IV 40 MG VIAL IV PUSH (09:01)
[2022-04-26 09:16] LABS: Alanine Aminotransferase 9 U/L (6-50); Albumin Level 3.1 g/dL (3.5-5.1); Alkaline Phosphatase 159 U/L (38-126); Anion Gap 10 mmol/L (8-16); Aspartate Amino Transferase 24 U/L (17-59); Bilirubin,Total 0.3 mg/dL (0.2-1.3); Blood Urea Nitrogen 23 mg/dL (9-20); Calcium 8.3 mg/dL (8.4-10.2); Carbon Dioxide 19 mmol/L (22-30); Chloride 112 mmol/L (98-107); Estimated CRCL calculation 54 ml/min; Estimated Glomerular Filt Rate 57; Glucose 71 mg/dL (65-110); Magnesium 1.6 mg/dL (1.6-2.3); Phosphorus 3.9 mg/dL (2.5-4.5); Potassium 3.9 mmol/L (3.4-5.0); Sodium 141 mmol/L (137-145)
--- NOTE | 2022-04-26 09:27 | WPDCNINT ---
Assessment and Plan Assessment and plan (1) Sepsis: Code(s): A41.9 - Sepsis, unspecified organism Status: Acute Assessment and Plan: Patient presented with hypotension, generalized weakness, CT scan of the pelvis showed urethral scrotal abscess -lactic acid was normal -patient adequately fluid-resuscitated -will give some albumin -UA reflective of UTI -04/25 blood cultures pending stem S2 -04/25 urine cultures pending -04/25: Scrotal abscess cultures pending -ertapenem, vancomycin (04/25), was given dose of clindamycin in the ER -urine output has been adequate via the suprapubic catheter (2) Abscess of scrotum: Code(s): N49.2 - Inflammatory disorders of scrotum Status: Acute Assessment and Plan: 04/25/2022 CT scan of the pelvis showed a 5.5 x 3.4 with 3.1 cm abscess involving the penile urethra and the scrotum. Bladder wall thickening consistent with cystitis, wall thickening of the rectosigmoid consistent with colitis -antibiotics as above -urology following the patient -coude catheter is in the abscess cavity, discussed with Urology this morning, they would like the Ellison catheter to remain in place for now (3) Other retention of urine: Code(s): R33.8 - Other retention of urine Status: Acute Assessment and Plan: Patient had urinary retention with worsening renal function -Ellison catheter could not be placed by Urology as it was in the abscess cavity -Interventional Radiology placed a suprapubic catheter, functioning well with clear urine output (4) Acute kidney injury: Code(s): N17.9 - Acute kidney failure, unspecified Status: Acute Assessment and Plan: Acute kidney injury likely related to urinary retention, urethral and scrotal abscess, UTI -patient adequately fluid-resuscitated -urine retention was relieved by intervention Radiology placing a suprapubic catheter on 04/25/2022 -will give additional IV fluids and albumin -continue to monitor renal function electrolytes -Patient remains acidotic, will start bicarb infusion (5) Anemia: Code(s): D64.9 - Anemia, unspecified Status: Acute Assessment and Plan: Anemia of chronic disease (6) Insulin dependent type 2 diabetes mellitus: Code(s): E11.9 - Type 2 diabetes mellitus without complications; Z79.4 - [facility] (current) use of insulin Status: Acute Assessment and Plan: Continue Accu-Cheks and sliding scale insulin -continue Lantus (7) Hypotension: Code(s): I95.9 - Hypotension, unspecified Status: Acute Assessment and Plan: Patient is on midodrine and fludrocortisone at home, will continue (8) Chronic pancreatitis: Code(s): K86.1 - Other chronic pancreatitis Status: Acute Assessment and Plan: Continue pancreatic enzyme (9) Hypothyroidism: Code(s): E03.9 - Hypothyroidism, unspecified Status: Acute Assessment and Plan: Continue levothyroxine Plan DVT prophylaxis: Lovenox Stress ulcer prophylaxis: Famotidine Nutrition: Diabetic diet Discussed with Urology, Dr. Ballard recommended leaving the Ellison catheter in place in place for now Code Status: Full code Critical Care Time Spent: 47 minutes Due to a high probability of clinically significant, life threatening deterioration, the patient required my highest level of preparedness to intervene emergently and I personally spent this critical care time directly and personally managing the patient. This critical care time included obtaining a history; examining the patient; pulse oximetry; ordering and review of studies; arranging urgent treatment with development of a management plan; evaluation of patient's response to treatment; frequent reassessment; and discussions with other providers. It was exclusive of separately billable procedures and treating other patients and teaching time. Please see Assessment and Plan section and the rest of the note for f
[2022-04-26] MEDS: SILVERGEL (ELTA) 45 ML 1 APPLIC TOPICAL (10:22)
[2022-04-26] MEDS: hetaSTARCH 6%/NACL 500 ML 250 ML IV CONT (10:23)
[2022-04-26] MEDS: SODIUM BICARBONATE 8.4% 150 MEQ in DEXTROSE 5% 1,000 ML 950 ML 50 MEQ IV CONT (10:23)
[2022-04-26] MEDS: SODIUM BICARBONATE 8.4% 50 MEQ/50 ML SYRINGE IV PUSH (10:23)
--- NOTE | 2022-04-26 11:46 | PC.NURSE ---
Addendum entered by Magdalene Mosquera RN 04/26/22 11:47: Family Member Beth Rodriguez (POA) notified of patients new room. Original Note: This patient, Shad Rodriguez, was transferred to [facility] on 04/26/22 at 1140. Personal belongings sent with patient. Report given to Mary RN. Appropriate documentation sent with patient.
[2022-04-26 12:03] LABS: Glucose Point of Care 89 mg/dl (65-105)
[2022-04-26] MEDS: TOLNAFTATE 1% POWDER 45 GM BTL 1 APPLIC TOPICAL ×2 (15:11→20:58)
[2022-04-26 17:08] LABS: Glucose Point of Care 189 mg/dl (65-105)
[2022-04-26 20:43] LABS: Glucose Point of Care 234 mg/dl (65-105)
[2022-04-26] MEDS: ERTAPENEM 1 GM/NS 50 ML 1 GM/50 ML BAG IVPB (20:57)
[2022-04-26] MEDS: INSULIN GLARGINE (*BKC) 100 UNITS/ML 15 UNITS SUB-Q (20:59)
--- NOTE | 2022-04-26 23:49 | PC.NURSE ---
patient pulled out loera catheter. zeeshan carmichael np aware. ok to leave out for tonight.
[2022-04-27] VITALS (11 sets, daily range): BP systolic 99–138; BP diastolic 52–92; PULSE 50–78; RESP 12–18; TEMP 36.2–36.6; O2SAT 95–100; BMI 14.5
--- NOTE | 2022-04-27 | ECHO_ITS ---
Patient Info Name: Shad Rodriguez Age: 57 years : 1965 Gender: Male Ht: 70 in Wt: 158 lbs BSA: 1.88 m2 HR: 57 bpm BP: 99 / 52 mmHg Technical Quality: Good Exam Date: 04/27/2022 9:58 AM Exam Location: [facility] Patient Status: Inpatient Admit Date: 04/25/2022 Staff Ordering Physician: Charla Douglas NP Malted Milk Mixer: Ygoesh Figueroa RDCS, RT Attending Provider: Lui Westfall MD Exam Type: CA echo doppler color flow Study Info Complete two-dimensional, color flow and Doppler transthoracic echocardiogram is performed. Strain analysis performed. Summary 1. Complete two-dimensional, color flow and Doppler transthoracic echocardiogram is performed. 2. Left ventricular chamber dimension is normal. 3. Left ventricular systolic function is normal, estimated at 60-65%. 4. The left ventricular diastolic function is normal. 5. E/e' 8 is minimally elevated. 6. There is trace tricuspid valve regurgitation. Left Ventricle E/e' 8 is minimally elevated. Left ventricular chamber dimension is normal. Left ventricular systolic function is normal, estimated at 60-65%. The left ventricular diastolic function is normal. Right Ventricle Right ventricular chamber dimension is normal. Right ventricular systolic function is normal. Left Atria Left atrial chamber dimension is normal. Right Atria Right atrial chamber dimension is normal. Aortic Valve The aortic valve is trileaflet. There is no aortic valve stenosis. There is no aortic valve regurgitation. Pulmonic Valve There is no pulmonic regurgitation. Mitral Valve There is no mitral valve stenosis. There is no mitral valve regurgitation. Tricuspid Valve There is trace tricuspid valve regurgitation. RVSP is not calculated due to an inadequate TR jet. Pericardium/Pleural There is no pericardial effusion. Inferior Vena Cava Normal inferior vena cava with >50% collapse upon inspiration consistent with normal right atrial pressure, 5 mmHg. Aorta The aortic root size at the sinus of Valsalva is normal. Left Ventricular Outflow Tract Name Value Normal LVOT 2D LVOT Diameter 2.0 cm LVOT Doppler LVOT Peak Gradient 2 mmHg LVOT Mean Gradient 1 mmHg LVOT VTI 18 cm LVOT VTI/AV VTI Ratio 0.9 LVOT Stroke Volume 52 ml Mitral Valve Name Value Normal MV Doppler MV Decel Culberson 402 cm/s2 MV PHT 50 ms MV Area (PHT) 4.4 cm2 4.0-5.0 MV Diastolic Function MV E Peak Velocity 69 cm/s MV A Peak Velocity 52 cm/s MV E/A
[2022-04-27] MEDS: ALBUMIN HUMAN 25% 25 GM/100 ML 100 ML IVPB (00:14)
[2022-04-27] MEDS: CENTRAL LINE FLUSH 10 ML IV PUSH ×4 (05:15→20:31)
[2022-04-27] MEDS: LEVOTHYROXINE SODIUM 75 MCG TABLET PO (05:15)
[2022-04-27 05:33] LABS: Basophils Absolute Auto 0.1 K/mm3 (0.0-0.1); Basophils Percent Auto 0.7 % (0.2-1.2); Eosinophils Absolute Auto 0.3 K/mm3 (0-0.3); Eosinophils Percent Auto 3.5 % (0-4.4); Immature Granulocyte Absolute 0.03 K/mm3 (0.00-0.031); Immature Granulocyte Percent A 0.3 % (0-0.5); Lymphocytes Percent Auto 19.2 % (18.3-44.2); Mean Corpuscular Hemoglobin 27.7 pg (26-34); Mean Corpuscular Volume 89.5 fl (80-100); Mean Platelet Volume 9.8 fl (7.4-10.4); Monocytes Absolute Auto 0.5 K/mm3 (0.1-0.6); Monocytes Percent Auto 5.5 % (2.6-8.5); Neutrophils Absolute Auto 6.3 K/mm3 (1.3-6.7); Neutrophils Percent Auto 70.8 % (45.5-73.1); Platelet Count Result 117 k/mm3 (150-375); Red Cell Distribution Width 14.6 % (11.5-14.5); White Blood Count 8.9 K/mm3 (4.5-10.0)
[2022-04-27 05:44] LABS: Hematocrit 19.7 % (42.0-52.0); Hemoglobin 6.1 g/dL (14.0-18.0)
[2022-04-27 05:50] LABS: Lactic Acid Reflex 1.3 mmol/L (0.7-2.0)
[2022-04-27 05:53] LABS: Alanine Aminotransferase 8 U/L (6-50); Albumin Level 3.7 g/dL (3.5-5.1); Alkaline Phosphatase 116 U/L (38-126); Anion Gap 14 mmol/L (8-16); Aspartate Amino Transferase 18 U/L (17-59); Bilirubin,Total 0.3 mg/dL (0.2-1.3); Blood Urea Nitrogen 16 mg/dL (9-20); CRP 2.9 mg/dL (<1.0); Calcium 8.2 mg/dL (8.4-10.2); Carbon Dioxide 20 mmol/L (22-30); Chloride 108 mmol/L (98-107); Creatine Kinase 35 U/L (55-170); Estimated CRCL calculation 63 ml/min; Estimated Glomerular Filt Rate > 60; Glucose 152 mg/dL (65-110); Magnesium 1.6 mg/dL (1.6-2.3); Phosphorus 3.2 mg/dL (2.5-4.5); Potassium 2.9 mmol/L (3.4-5.0); Sodium 142 mmol/L (137-145)
[2022-04-27 06:10] LABS: Basophils Absolute Auto 0.1 K/mm3 (0.0-0.1); Eosinophils Absolute Auto 0.4 K/mm3 (0-0.3); Eosinophils Percent Auto 3.8 % (0-4.4); Hematocrit 25.8 % (42.0-52.0); Hemoglobin 7.7 g/dL (14.0-18.0); Immature Granulocyte Absolute 0.04 K/mm3 (0.00-0.031); Immature Granulocyte Percent A 0.4 % (0-0.5); Lymphocytes Absolute Auto 1.93 K/mm3 (0.9-3.2); Lymphocytes Percent Auto 18.5 % (18.3-44.2); Mean Corpuscular HGB Conc 29.8 g/dl (32-36); Mean Corpuscular Hemoglobin 27.5 pg (26-34); Mean Corpuscular Volume 92.1 fl (80-100); Mean Platelet Volume 9.6 fl (7.4-10.4); Monocytes Absolute Auto 0.5 K/mm3 (0.1-0.6); Monocytes Percent Auto 4.9 % (2.6-8.5); Neutrophils Absolute Auto 7.5 K/mm3 (1.3-6.7); Neutrophils Percent Auto 71.4 % (45.5-73.1); Platelet Count Result 150 k/mm3 (150-375); Red Cell Distribution Width 14.6 % (11.5-14.5); White Blood Count 10.5 K/mm3 (4.5-10.0)
[2022-04-27 06:30] LABS: Anisocytosis 1+ (NORMAL); Hypochromasia 1+ (NORMAL); Platelet Estimate Adequate (Adequate); Schistocytes 1+ (NORMAL)
--- NOTE | 2022-04-27 06:45 | WPDUROPN2 ---
Progress Note: A&P Assessment and Plan (1) Trauma of urethra: Code(s): S37.30XA - Unspecified injury of urethra, initial encounter Status: Acute (2) Abscess of scrotum: Code(s): N49.2 - Inflammatory disorders of scrotum Status: Acute (3) Other retention of urine: Code(s): R33.8 - Other retention of urine Status: Acute Plan 57 yr old male with chronic retention who has developed a urethroscrotal abscess. He is now s/p SP tube placement. Clinically improving- afebrile, wbc ct improving, BP stablized. Pending urine, blood and wound cultures. Continue broad-spectrum abx for now. Ellison currently acting as abscess drain with minimal output. Will keep it in place for now- possibly remove tomorrow if minimal output. 04/27/22 S/P catheter functioning well - urine clear with improving renal function Blood, urine and wound cultures pending. Will attempt cysto/placement urethral catheter later this week. Subjective Subjective Date/Time Seen: 04/27/22 06:45 Comfortable, pulled scrotal drain out last night Anxious about not being able to smoke Review of Systems Cardiovascular: Cardiovascular: Denies chest pain, Denies lightheadedness, Denies palpitations and Denies dyspnea Respiratory: Respiratory: Denies dyspnea Gastrointestinal: Gastrointestinal: Denies diarrhea, Denies nausea and Denies vomiting Genitourinary: Genitourinary: Denies hematuria and Denies dysuria Endocrine: Endocrine: Denies palpitations Exam Const: Nutritional Appearance: cachectic and underweight Resp: Effort & Inspection: normal respiratory effort GI: Inspection: normal to inspection (s/p site clean and dry) : Male General Exam: Yes erythema (minimal scrotal erythema and swelling / no fluctuance) Urinary Catheter: Urinary Catheter: patent and draining (s/p catheter) Objective Data Vital Signs Vital Signs: Vital Signs - 24 hr 04/26/22 08:00 04/26/22 08:00 04/26/22 10:00 Temperature Pulse Rate 71 65 Respiratory Rate Blood Pressure Pulse Oximetry Oxygen Delivery Room Air 04/26/22 08:49 04/26/22 09:01 04/26/22 09:02 Temperature Pulse Rate 71 71 70 Respiratory Rate 18 13 12 Blood Pressure 90/71 L Pulse Oximetry Oxygen Delivery 04/26/22 10:00 04/26/22 11:49 04/26/22 12:00 Temperature 97.7 F Pulse Rate 60 65 Respiratory Rate 18 Blood Pressure 86/59 L Pulse Oximetry Oxygen Delivery Room Air 04/26/22 12:00 04/26/22 14:00 04/26/22 16:00 Temperature 97.8 F Pulse Rate 66 63 63 Respiratory Rate 16 Blood Pressure 106/67 Pulse Oximetry 100 Oxygen Delivery 04/26/22 16:00 04/26/22 16:00 04/26/22 18:00 Temperature 97.5 F L Pulse Rate 63 72 Respiratory Rate 12 Blood Pressure 115/73 Pulse Oximetry 100 Oxygen Delivery Room Air 04/26/22 20:00 04/26/22 20:00 04/26/22 20:00 Temperature 97.7 F Pulse Rate 68 68 68 Respiratory Rate 20 20 Blood Pressure 115/63 Pulse Oximetry 100 100 Oxygen Delivery Room Air 04/26/22 22:00 04/26/22 23:48 04/27/22 00:00 Temperature 98.0 F Pulse Rate 64 67 66 Respiratory Rate 18 Blood Pressure 120/66 Pulse Oximetry 97 Oxygen Delivery 04/27/22 00:00 04/27/22 02:00 04/27/22 04:00 Temperature Pulse Rate 66 78 67 Respiratory Rate 18 Blood Pressure Pulse Oximetry 97 Oxygen Delivery Room Air 04/27/22 04:00 04/27/22 04:00 04/27/22 06:00 Temperature 97.7 F Pulse Rate 67 60 65 Respiratory Rate 18 18 Blood Pressure 99/52 L Pulse Oximetry 97 96 Oxygen Delivery Room Air Intake/Output Intake/Output: Intake & Output 04/24/22 04/25/22 04/26/22 04/27/22 23:59 23:59 23:59 23:59 Intake Total 5440 1750 200 Output Total 725 1025 250 Balance 4715 725 -50 Meds/Results Medications: Active Medications Generic Name Dose Route Start Last Admin Trade Name Freq PRN Reason Stop Dose Admin Acetaminophen 1,000 mg
--- NOTE | 2022-04-27 07:24 | PM.IMPN ---
Progress Note: A&P Assessment and Plan (1) Sepsis: Code(s): A41.9 - Sepsis, unspecified organism Status: Acute Assessment and Plan: Urethral and scrotal abscess with sepsis status post suprapubic catheter placement Continue vasopressors, managed by airworthiness safety inspector Blood and urine cultures pending, vancomycin and ertapenem started April 25, 2022 Leukocytosis trending down Appreciate urology consultation 04/27: leuk cont to trend down, WBC were 23 (04/21), now 10.5 today (2) Abscess of scrotum: Code(s): N49.2 - Inflammatory disorders of scrotum Status: Acute Assessment and Plan: As above (3) UTI (urinary tract infection) due to urinary indwelling Ellison catheter: Code(s): T83.511A - Infection and inflammatory reaction due to indwelling urethral catheter, initial encounter; N39.0 - Urinary tract infection, site not specified Status: Acute Assessment and Plan: History of continued UTI as well as Klebsiella pneumoniae Of note: Blood cultures from earlier this month positive for ESBL, repeat cultures were negative, treated with ertapenem for 8 days after negative blood cultures. 04/27: blood, wound and urine cultures still pending, cont vanc + ertapenem, started 04/25, on day 2 of antibiotics today (4) Acute kidney injury: Code(s): N17.9 - Acute kidney failure, unspecified Status: Acute Assessment and Plan: Baseline appears to be 0.9-1.1, 1.4 on admission, repeat pending 04/27: stable at baseline, 1.1 today (5) Retention, urine: Code(s): R33.9 - Retention of urine, unspecified Status: Acute Assessment and Plan: Resolved status post suprapubic catheter placement, appreciate urology consultation (6) Insulin dependent type 2 diabetes mellitus: Code(s): E11.9 - Type 2 diabetes mellitus without complications; Z79.4 - petroleum terminal plant operator (current) use of insulin Status: Acute Assessment and Plan: Accu-Cheks plus intensive sliding scale insulin A1c pending but appears uncontrolled, sugars consistently over 300 Continue Lantus 15 units nightly, will likely need increased, wait for A1c 04/27: BG controlled here, 86-139, cont lantus 15 u QHS + SSI (7) Hypotension: Code(s): I95.9 - Hypotension, unspecified Status: Acute Assessment and Plan: Patient on midodrine and fludrocortisone at baseline, appears to have chronic orthostatic hypotension, could have underlying POTS Consider outpatient cardiology workup 04/27: BP 99/52-138/92, stable, monitor (8) Chronic pancreatitis: Code(s): K86.1 - Other chronic pancreatitis Status: Acute Assessment and Plan: Long history of alcohol abuse with chronic pancreatitis, continue Creon 04/27: suspect this is etiology to chronic diarrhea, previously worked uo by GI with no insidious etiology, rec inc loperamide to control, will increase dose to 4 mg Q6h scheduled and monitor, max dose is 16 mg in 24 hrs (9) Alcohol dependence: Code(s): F10.20 - Alcohol dependence, uncomplicated Status: Acute Assessment and Plan: Continue thiamine, folic acid 04/27: no signs of w/d, doubt patient is still actively drinking due to [facility] residence, no need for CIWA at this time suspected (10) BPH (benign prostatic hyperplasia): Code(s): N40.0 - Benign prostatic hyperplasia without lower urinary tract symptoms Status: Acute Assessment and Plan: Continue Flomax and finasteride, appreciate Urology consultation (11) Hypothyroidism: Code(s): E03.9 - Hypothyroidism, unspecified Status: Acute Assessment and Plan: Continue levothyroxine, last TSH was quite low, recheck pending (12) Murmur, cardiac: Code(s): R01.1 - Cardiac murmur, unspecified Status: Acute Assessment and Plan: Echo pending (13) Tobacco dependence: Code(s): F17.200 - Nicotine dependence, unspecified, uncomplicated Status: Acute Assessmen
[2022-04-27 07:36] LABS: Glucose Point of Care 139 mg/dl (65-105)
[2022-04-27] MEDS: LOPERAMIDE HCL 2 MG CAPSULE 4 MG PO ×3 (09:32→20:24)
[2022-04-27] MEDS: PREGABALIN (*CRX) 75 MG CAPSULE PO ×3 (09:32→18:39)
[2022-04-27] MEDS: LIPASE/AMYLASE/PROTEASE 12,000 UNITS CAP 2 CAP PO ×3 (09:33→18:33)
[2022-04-27] MEDS: MIDODRINE HCL 10 MG TABLET BY MOUTH ×3 (09:33→18:33)
[2022-04-27] MEDS: POTASSIUM CHLORIDE 20 MEQ TABLET 40 MEQ PO (09:33)
[2022-04-27] MEDS: THIAMINE HCL 100 MG TABLET BY MOUTH (09:34)
[2022-04-27] MEDS: FERROUS SULFATE 324 MG TABLET PO ×3 (09:34→18:34)
[2022-04-27] MEDS: FOLIC ACID 1 MG TABLET BY MOUTH (09:34)
[2022-04-27] MEDS: SODIUM BICARBONATE TAB 650 MG TABLET PO ×2 (09:35→18:34)
[2022-04-27] MEDS: TAMSULOSIN HCL 0.4 MG CAPSULE PO (09:35)
[2022-04-27] MEDS: FAMOTIDINE 20 MG/2 ML VIAL IV PUSH ×2 (09:35→20:24)
[2022-04-27] MEDS: PANTOPRAZOLE SODIUM IV 40 MG VIAL IV PUSH (09:35)
[2022-04-27] MEDS: GABAPENTIN 100 MG CAPSULE 200 MG PO ×2 (09:35→18:33)
[2022-04-27] MEDS: ZINC SULFATE 220 MG CAPSULE PO (09:36)
[2022-04-27] MEDS: ENOXAPARIN 40 MG/0.4 ML SYRINGE SUB-Q (09:37)
[2022-04-27] MEDS: DULoxetine HCL 20 MG CAPSULE.DR PO (09:37)
[2022-04-27] MEDS: FLUDROCORTISONE ACETATE 0.1 MG TABLET PO (09:37)
[2022-04-27] MEDS: MAGNESIUM OXIDE 400 MG TABLET PO (09:37)
[2022-04-27] MEDS: TOLNAFTATE 1% POWDER 45 GM BTL 1 APPLIC TOPICAL ×2 (09:38→20:25)
[2022-04-27] MEDS: NICOTINE (*PBKC) 21 MG PATCH 1 PATCH TRANSDERM (09:38)
[2022-04-27] MEDS: SILVERGEL (ELTA) 45 ML 1 APPLIC TOPICAL (09:38)
[2022-04-27 12:27] LABS: Glucose Point of Care 250 mg/dl (65-105)
[2022-04-27] MEDS: INSULIN ASPART (*BKC) 100 UNITS/ML SUB-Q (13:30)
[2022-04-27 16:32] LABS: Glucose Point of Care 217 mg/dl (65-105)
[2022-04-27] MEDS: SODIUM BICARBONATE 8.4% 150 MEQ in DEXTROSE 5% 1,000 ML 950 ML 50 MEQ IV CONT (17:32)
[2022-04-27 17:59] LABS: Glucose Point of Care 191 mg/dl (65-105)
[2022-04-27 18:29] LABS: Base Excess ABG -0.6 mEq/l (+/-2.0); Fractional Inspired Oxygen 21 %; HCO3 ABG 23.1 mEq/l (22.0-26.0); Oxygen Content ABG 11.9 %vol (16.0-22.0); Oxygen Saturation ABG 98.3 % (95.0-100.0); Oxyhemoglobin 96.6 % THb (90.0-100.0); PCO2 ABG 34.3 mmHg (35.0-45.0); PO2 ABG 111.5 mmHg (80.0-100.0); PO2 FiO2 Ratio Arterial Blood 5.31 %; Total Hemoglobin 8.6 g/dL (12.0-18.0); pH ABG 7.447 (7.350-7.450)
[2022-04-27 18:31] LABS: Device ROOM AIR; Modified Allen's Test Pass; Site Drawn LEFT RADIAL
[2022-04-27] MEDS: ERTAPENEM 1 GM/NS 50 ML 1 GM/50 ML BAG IVPB (18:56)
[2022-04-27] MEDS: INSULIN GLARGINE (*BKC) 100 UNITS/ML 15 UNITS SUB-Q (20:29)
[2022-04-27 20:56] LABS: Glucose Point of Care 238 mg/dl (65-105)
[2022-04-28 05:40] VITALS: BP 100/60; PULSE 65; RESP 12; TEMP 36.5; O2SAT 100
[2022-04-28] MEDS: LOPERAMIDE HCL 2 MG CAPSULE 4 MG PO ×3 (05:41→17:09)
[2022-04-28] MEDS: CENTRAL LINE FLUSH 10 ML IV PUSH ×4 (05:41→20:40)
[2022-04-28] MEDS: LEVOTHYROXINE SODIUM 75 MCG TABLET PO (05:42)
[2022-04-28 08:15] LABS: Glucose Point of Care 155 mg/dl (65-105)
[2022-04-28] MEDS: ENOXAPARIN 40 MG/0.4 ML SYRINGE SUB-Q (08:25)
[2022-04-28] MEDS: FOLIC ACID 1 MG TABLET BY MOUTH (08:26)
[2022-04-28] MEDS: MIDODRINE HCL 10 MG TABLET BY MOUTH ×3 (08:26→17:09)
[2022-04-28] MEDS: DULoxetine HCL 20 MG CAPSULE.DR PO (08:26)
[2022-04-28] MEDS: LIPASE/AMYLASE/PROTEASE 12,000 UNITS CAP 2 CAP PO ×3 (08:26→17:09)
[2022-04-28] MEDS: SODIUM BICARBONATE TAB 650 MG TABLET PO ×2 (08:26→17:09)
[2022-04-28] MEDS: TAMSULOSIN HCL 0.4 MG CAPSULE PO (08:27)
[2022-04-28] MEDS: FERROUS SULFATE 324 MG TABLET PO ×3 (08:27→17:09)
[2022-04-28] MEDS: SILVERGEL (ELTA) 45 ML 1 APPLIC TOPICAL (08:27)
[2022-04-28] MEDS: NICOTINE (*PBKC) 21 MG PATCH 1 PATCH TRANSDERM (08:27)
[2022-04-28] MEDS: FLUDROCORTISONE ACETATE 0.1 MG TABLET PO (08:27)
[2022-04-28] MEDS: PANTOPRAZOLE SODIUM IV 40 MG VIAL IV PUSH (08:27)
[2022-04-28] MEDS: MAGNESIUM OXIDE 400 MG TABLET PO (08:27)
[2022-04-28] MEDS: GABAPENTIN 100 MG CAPSULE 200 MG PO ×2 (08:27→17:09)
[2022-04-28] MEDS: THIAMINE HCL 100 MG TABLET BY MOUTH (08:28)
[2022-04-28] MEDS: ZINC SULFATE 220 MG CAPSULE PO (08:28)
[2022-04-28] MEDS: TOLNAFTATE 1% POWDER 45 GM BTL 1 APPLIC TOPICAL ×2 (08:28→20:41)
[2022-04-28] MEDS: FAMOTIDINE 20 MG/2 ML VIAL IV PUSH ×2 (08:28→20:40)
[2022-04-28] MEDS: PREGABALIN (*CRX) 75 MG CAPSULE PO ×3 (08:32→17:10)
--- NOTE | 2022-04-28 09:28 | WPDUROPN2 ---
Progress Note: A&P Assessment and Plan (1) Abscess of scrotum: Code(s): N49.2 - Inflammatory disorders of scrotum Status: Acute Assessment and Plan: Cultures grew E-Coli with ESBL and Mariel. He is currently on IV antibiotics for treatment which are culture sensitive for both strands of E-Coli. (2) Trauma of urethra: Code(s): S37.30XA - Unspecified injury of urethra, initial encounter Status: Acute Assessment and Plan: Plan to go to the OR with Dr. Rivera for a Cystoscopy with attempt at placing a urethral cathteter. Obtain Consent. (3) Other retention of urine: Code(s): R33.8 - Other retention of urine Status: Acute Assessment and Plan: Suprapubic Tube in place and draining at this time. (4) Candidiasis: Code(s): B37.9 - Candidiasis, unspecified Status: Acute Assessment and Plan: Recommend treatment with 7 days of oral Diflucan 100mg QD. Subjective Subjective Date/Time Seen: 04/28/22 09:28 Patient is s/p Suprapubic Catheter Placement in IR after a failed attempted at the bedside to place a loera. He had a cystoscopy also at the bedside by Dr. Ballard which revealed a scrotal abscess eroding into his bulbar urethra that was able to be decompressed with a loera in the abscess cavity. He is doing better today, sitting up in bed eating and tolerating the pain. His SP tube is draining clear, yellow urine. Post Op day: 2 Review of Systems Cardiovascular: Cardiovascular: Denies chest pain Respiratory: Respiratory: Reports no additional respiratory complaints Gastrointestinal: Gastrointestinal: Reports abdominal pain (at SP tube insertion site) Genitourinary: Genitourinary: Denies hematuria, Reports genital pain, Denies dysuria, Denies flank pain and Reports penile discharge Exam Const: General: comfortable Resp: Effort & Inspection: normal respiratory effort Cardio: Rate: regular rate GI: GI Palp: Yes Soft to palpation and Yes Tenderness to palpation present (GI) (at SP tube insertion site, dressing applied and dry, clear yellow urine) : General: Yes no CVA tenderness Urinary Catheter: Urinary Catheter: patent and draining and urine clear Extrem: Right lower extremity: no edema Left lower extremity: no edema Objective Data Vital Signs Vital Signs: Vital Signs - 24 hr 04/27/22 10:00 04/27/22 12:00 04/27/22 12:00 Temperature 97.2 F L Pulse Rate 67 72 63 Respiratory Rate 16 Blood Pressure 106/75 Pulse Oximetry 100 Oxygen Delivery Room Air 04/27/22 12:00 04/27/22 14:00 04/27/22 16:00 Temperature 97.5 F L Pulse Rate 67 72 62 Respiratory Rate 12 Blood Pressure 102/59 L Pulse Oximetry 99 Oxygen Delivery 04/27/22 16:00 04/27/22 21:43 04/27/22 20:00 Temperature 97.5 F L Pulse Rate 63 50 L 50 L Respiratory Rate 12 12 Blood Pressure 106/79 Pulse Oximetry 95 95 Oxygen Delivery Room Air 04/28/22 05:40 04/28/22 07:56 Temperature 97.7 F Pulse Rate 65 Respiratory Rate 12 Blood Pressure 100/60 Pulse Oximetry 100 Oxygen Delivery Room Air Intake/Output Intake/Output: Intake & Output 04/25/22 04/26/22 04/27/22 04/28/22 23:59 23:59 23:59 23:59 Intake Total 5440 2000 2070 100 Output Total 725 1025 450 300 Balance 4715 975 1620 -200 Meds/Results Medications: Active Medications Generic Name Dose Route Start Last Admin Trade Name Freq PRN Reason Stop Dose Admin Acetaminophen 1,000 mg 04/25/22 18:33 Acetaminophen 500 Mg Tablet PO Q6H PRN Mild to moderate pain Lipase/Protease/Amylase 2 cap 04/26/22 08:00 04/28/22 08:26 Lipase/Amylase/Protease 12,000 Units Cap PO 2 cap TIDWM CINDY Administration Dextrose 12.5 gm 04/25/22 18:18 Dextrose 50% 25 Gm/50 Ml Syringe IV PUSH PRN PRN Hypoglycemia Protocol Duloxetine HCl 20 mg 04/26/22 09:00 04/28/22 08:26 Duloxetine Hcl 20 Mg Capsule.Dr PO 20 mg IMANI
--- NOTE | 2022-04-28 09:45 | PM.IMPN ---
Progress Note: A&P Assessment and Plan (1) Sepsis: Code(s): A41.9 - Sepsis, unspecified organism Status: Acute Assessment and Plan: Urethral and scrotal abscess with sepsis status post suprapubic catheter placement Continue vasopressors, managed by manager food beverage Blood and urine cultures pending, vancomycin and ertapenem started April 25, 2022 Leukocytosis trending down Appreciate urology consultation 04/27: leuk cont to trend down, WBC were 23 (04/21), now 10.5 today (2) Abscess of scrotum: Code(s): N49.2 - Inflammatory disorders of scrotum Status: Acute Assessment and Plan: As above (3) UTI (urinary tract infection) due to urinary indwelling Ellison catheter: Code(s): T83.511A - Infection and inflammatory reaction due to indwelling urethral catheter, initial encounter; N39.0 - Urinary tract infection, site not specified Status: Acute Assessment and Plan: History of continued UTI as well as Klebsiella pneumoniae Of note: Blood cultures from earlier this month positive for ESBL, repeat cultures were negative, treated with ertapenem for 8 days after negative blood cultures. 04/27: blood, wound and urine cultures still pending, cont vanc + ertapenem, started 04/25, on day 2 of antibiotics today 04/28: Cultures positive for ESBL again, continue ertapenem, can discontinue vancomycin at this time (4) Acute kidney injury: Code(s): N17.9 - Acute kidney failure, unspecified Status: Acute Assessment and Plan: Baseline appears to be 0.9-1.1, 1.4 on admission, repeat pending 04/27: stable at baseline, 1.1 today (5) Retention, urine: Code(s): R33.9 - Retention of urine, unspecified Status: Acute Assessment and Plan: Resolved status post suprapubic catheter placement, appreciate urology consultation (6) Insulin dependent type 2 diabetes mellitus: Code(s): E11.9 - Type 2 diabetes mellitus without complications; Z79.4 - halfway (current) use of insulin Status: Acute Assessment and Plan: Accu-Cheks plus intensive sliding scale insulin A1c pending but appears uncontrolled, sugars consistently over 300 Continue Lantus 15 units nightly, will likely need increased, wait for A1c 04/27: BG controlled here, 86-139, cont lantus 15 u QHS + SSI (7) Hypotension: Code(s): I95.9 - Hypotension, unspecified Status: Acute Assessment and Plan: Patient on midodrine and fludrocortisone at baseline, appears to have chronic orthostatic hypotension, could have underlying POTS Consider outpatient cardiology workup 04/27: BP 99/52-138/92, stable, monitor (8) Chronic pancreatitis: Code(s): K86.1 - Other chronic pancreatitis Status: Acute Assessment and Plan: Long history of alcohol abuse with chronic pancreatitis, continue Creon 04/27: suspect this is etiology to chronic diarrhea, previously worked up by GI with no insidious etiology, rec inc loperamide to control, will increase dose to 4 mg Q6h scheduled and monitor, max dose is 16 mg in 24 hrs 04/28: GI consult pending, diarrhea essentially unchanged despite maxing out Imodium (9) Alcohol dependence: Code(s): F10.20 - Alcohol dependence, uncomplicated Status: Acute Assessment and Plan: Continue thiamine, folic acid 04/27: no signs of w/d, doubt patient is still actively drinking due to [facility] residence, no need for CIWA at this time suspected (10) BPH (benign prostatic hyperplasia): Code(s): N40.0 - Benign prostatic hyperplasia without lower urinary tract symptoms Status: Acute Assessment and Plan: Continue Flomax and finasteride, appreciate Urology consultation (11) Hypothyroidism: Code(s): E03.9 - Hypothyroidism, unspecified Status: Acute Assessment and Plan: Continue levothyroxine, last TSH was quite low, recheck pending (12) Murmur, cardiac: Code(s): R01.1 - Cardiac murmur, unspecified Status
[2022-04-28 12:06] LABS: Glucose Point of Care 251 mg/dl (65-105)
[2022-04-28 12:06] LABS: Vancomycin Trough 15.5 ug/mL (10.0-20.0)
[2022-04-28] MEDS: INSULIN ASPART (*BKC) 100 UNITS/ML SUB-Q ×2 (12:09→17:17)
[2022-04-28 14:50] VITALS: BP 100/59; PULSE 65; RESP 16; TEMP 36.4; O2SAT 100
[2022-04-28 16:42] LABS: Glucose Point of Care 345 mg/dl (65-105)
[2022-04-28] MEDS: ERTAPENEM 1 GM/NS 50 ML 1 GM/50 ML BAG IVPB (17:10)
[2022-04-28 20:00] VITALS: PULSE 65; RESP 16; O2SAT 100
[2022-04-28] MEDS: INSULIN GLARGINE (*BKC) 100 UNITS/ML 15 UNITS SUB-Q (20:43)
[2022-04-28 20:45] LABS: Glucose Point of Care 341 mg/dl (65-105)
[2022-04-29] VITALS: BP 118/92; PULSE 90; RESP 18; TEMP 36.6; O2SAT 99
[2022-04-29] MEDS: LEVOTHYROXINE SODIUM 75 MCG TABLET PO (05:46)
[2022-04-29] MEDS: LOPERAMIDE HCL 2 MG CAPSULE 4 MG PO ×3 (05:46→17:00)
[2022-04-29] MEDS: CENTRAL LINE FLUSH 10 ML IV PUSH ×4 (05:47→21:24)
[2022-04-29 06:29] LABS: Basophils Absolute Auto 0.1 K/mm3 (0.0-0.1); Basophils Percent Auto 0.4 % (0.2-1.2); Eosinophils Absolute Auto 0.3 K/mm3 (0-0.3); Eosinophils Percent Auto 2.4 % (0-4.4); Hematocrit 23.2 % (42.0-52.0); Hemoglobin 7.3 g/dL (14.0-18.0); Immature Granulocyte Absolute 0.05 K/mm3 (0.00-0.031); Immature Granulocyte Percent A 0.4 % (0-0.5); Lymphocytes Absolute Auto 2.28 K/mm3 (0.9-3.2); Lymphocytes Percent Auto 18.2 % (18.3-44.2); Mean Corpuscular HGB Conc 31.5 g/dl (32-36); Mean Corpuscular Hemoglobin 28.2 pg (26-34); Mean Corpuscular Volume 89.6 fl (80-100); Mean Platelet Volume 10.3 fl (7.4-10.4); Monocytes Absolute Auto 0.8 K/mm3 (0.1-0.6); Monocytes Percent Auto 6.5 % (2.6-8.5); Neutrophils Absolute Auto 9.1 K/mm3 (1.3-6.7); Neutrophils Percent Auto 72.1 % (45.5-73.1); Platelet Count Result 141 k/mm3 (150-375); Red Blood Count 2.59 M/mm3 (4.6-6.20); Red Cell Distribution Width 14.7 % (11.5-14.5); White Blood Count 12.6 K/mm3 (4.5-10.0)
[2022-04-29 06:45] LABS: Anion Gap 7 mmol/L (8-16); Blood Urea Nitrogen 10 mg/dL (9-20); Calcium 7.8 mg/dL (8.4-10.2); Carbon Dioxide 31 mmol/L (22-30); Chloride 105 mmol/L (98-107); Estimated CRCL calculation 39 ml/min; Estimated Glomerular Filt Rate > 60; Glucose 125 mg/dL (65-110); Potassium 2.9 mmol/L (3.4-5.0); Sodium 143 mmol/L (137-145)
[2022-04-29 08:04] LABS: Glucose Point of Care 77 mg/dl (65-105)
[2022-04-29] MEDS: NICOTINE (*PBKC) 21 MG PATCH 1 PATCH TRANSDERM (08:23)
[2022-04-29] MEDS: ENOXAPARIN 40 MG/0.4 ML SYRINGE SUB-Q (08:23)
[2022-04-29] MEDS: MIDODRINE HCL 10 MG TABLET BY MOUTH ×3 (08:24→17:00)
[2022-04-29] MEDS: ZINC SULFATE 220 MG CAPSULE PO (08:24)
[2022-04-29] MEDS: LIPASE/AMYLASE/PROTEASE 12,000 UNITS CAP 2 CAP PO ×3 (08:24→17:00)
[2022-04-29] MEDS: SODIUM BICARBONATE TAB 650 MG TABLET PO ×2 (08:24→17:00)
[2022-04-29] MEDS: FLUDROCORTISONE ACETATE 0.1 MG TABLET PO (08:24)
[2022-04-29] MEDS: FOLIC ACID 1 MG TABLET BY MOUTH (08:24)
[2022-04-29] MEDS: FERROUS SULFATE 324 MG TABLET PO ×3 (08:25→17:00)
[2022-04-29] MEDS: TAMSULOSIN HCL 0.4 MG CAPSULE PO (08:25)
[2022-04-29] MEDS: MAGNESIUM OXIDE 400 MG TABLET PO (08:25)
[2022-04-29] MEDS: DULoxetine HCL 20 MG CAPSULE.DR PO (08:25)
[2022-04-29] MEDS: THIAMINE HCL 100 MG TABLET BY MOUTH (08:25)
[2022-04-29] MEDS: GABAPENTIN 100 MG CAPSULE 200 MG PO ×2 (08:26→17:00)
[2022-04-29] MEDS: PANTOPRAZOLE SODIUM IV 40 MG VIAL IV PUSH (08:26)
[2022-04-29] MEDS: FAMOTIDINE 20 MG/2 ML VIAL IV PUSH (08:26)
[2022-04-29] MEDS: SILVERGEL (ELTA) 45 ML 1 APPLIC TOPICAL (08:30)
[2022-04-29] MEDS: TOLNAFTATE 1% POWDER 45 GM BTL 1 APPLIC TOPICAL ×2 (08:30→21:23)
[2022-04-29] MEDS: PREGABALIN (*CRX) 75 MG CAPSULE PO ×3 (08:34→17:00)
[2022-04-29 11:57] LABS: Glucose Point of Care 167 mg/dl (65-105)
--- NOTE | 2022-04-29 12:29 | PM.IMPN ---
Progress Note: A&P Assessment and Plan (1) Sepsis: Code(s): A41.9 - Sepsis, unspecified organism Status: Acute Assessment and Plan: -Urethral and scrotal abscess with sepsis status post suprapubic catheter placement. Urology following -previously on pressors -Blood cx NGTD, urine cx with ramiro. Abscess cx growing ESBL E coli and ramiro -on Ertapenem D#4, started 7 day course of diflucan 04/29 (2) Abscess of scrotum: Code(s): N49.2 - Inflammatory disorders of scrotum Status: Acute Assessment and Plan: As above (3) UTI (urinary tract infection) due to urinary indwelling Ellison catheter: Code(s): T83.511A - Infection and inflammatory reaction due to indwelling urethral catheter, initial encounter; N39.0 - Urinary tract infection, site not specified Status: Acute Assessment and Plan: History of continued UTI as well as Klebsiella pneumoniae Of note: Blood cultures from earlier this month positive for ESBL, repeat cultures were negative, treated with ertapenem for 8 days after negative blood cultures. -managment as above (4) Acute kidney injury: Code(s): N17.9 - Acute kidney failure, unspecified Status: Acute Assessment and Plan: Baseline appears to be 0.9-1.1, 1.4 on admission, now resolved (5) Retention, urine: Code(s): R33.9 - Retention of urine, unspecified Status: Acute Assessment and Plan: Resolved status post suprapubic catheter placement, appreciate urology consultation (6) Insulin dependent type 2 diabetes mellitus: Code(s): E11.9 - Type 2 diabetes mellitus without complications; Z79.4 - alf (current) use of insulin Status: Acute Assessment and Plan: A1c 9.8% Continue Lantus 15 units nightly, will start humalog 4 U TID WM along with high dose SSI (7) Hypotension: Code(s): I95.9 - Hypotension, unspecified Status: Acute Assessment and Plan: Patient on midodrine and fludrocortisone at baseline, appears to have chronic orthostatic hypotension, could have underlying POTS Consider outpatient cardiology workup -BP now stable (8) Chronic pancreatitis: Code(s): K86.1 - Other chronic pancreatitis Status: Acute Assessment and Plan: Long history of alcohol abuse with chronic pancreatitis, continue Creon -suspect this is etiology to chronic diarrhea, previously worked up by GI with no insidious etiology, rec inc loperamide to control. Dose maxed to 4 mg q6h -patient still having diarrhea, will c/s GI for further recs (9) Alcohol dependence: Code(s): F10.20 - Alcohol dependence, uncomplicated Status: Acute Assessment and Plan: Continue thiamine, folic acid 04/27: no signs of w/d, doubt patient is still actively drinking due to [facility] residence, no need for CIWA at this time suspected (10) BPH (benign prostatic hyperplasia): Code(s): N40.0 - Benign prostatic hyperplasia without lower urinary tract symptoms Status: Acute Assessment and Plan: Continue Flomax and finasteride, appreciate Urology consultation (11) Hypothyroidism: Code(s): E03.9 - Hypothyroidism, unspecified Status: Acute Assessment and Plan: Continue levothyroxine, TSH nl (12) Murmur, cardiac: Code(s): R01.1 - Cardiac murmur, unspecified Status: Acute Assessment and Plan: Echo from 04/27 showed an EF of 60-65% with normal diastolic function, essentially benign echo, no valvular abnormalities or pulmonary hypertension noted (13) Tobacco dependence: Code(s): F17.200 - Nicotine dependence, unspecified, uncomplicated Status: Acute Assessment and Plan: Smoking cessation encouraged (14) Severe muscle deconditioning: Code(s): R29.898 - Other symptoms and signs involving the musculoskeletal system Status: Acute Assessment and Plan: Nutrition consult Severe deconditioning, nutritional deficiency and mus
[2022-04-29] MEDS: POTASSIUM CHLORIDE 20 MEQ PACKET (FOR LIQUID) 40 MEQ PO (12:32)
[2022-04-29] MEDS: POTASSIUM CHLORIDE INJ 40 MEQ in SODIUM CHLORIDE 0.9% IV 500 ML 130 MEQ IVPB (12:32)
[2022-04-29 12:44] VITALS: BP 99/64; PULSE 84; RESP 16; TEMP 36.3; O2SAT 100
--- NOTE | 2022-04-29 13:13 | WPDANESEPPF ---
Anes - Initial Pre Proc Eval Procedure: Operation Date: 04/30/22 12:45 Proposed Procedures p Cystoscopy, with Attempted Catheter Placement - Al Rivera MD Date/Time: 04/29/22 13:13 Surgeon: Eliseo Westfall MD Pre Op Diagnosis: Sepsis/Shock/Scrotal abscess Patient Data Age: 57 Gender: M Height: 1.78 m Weight: 41.8 kg Last Vital Signs Temp 36.6 C 04/29/22 00:00 Pulse 90 04/29/22 00:00 Resp 18 04/29/22 00:00 BP 118/92 H 04/29/22 00:00 Pulse Ox 99 04/29/22 00:00 O2 Del Method Room Air 04/29/22 07:29 Allergies Allergy/AdvReac Type Severity Reaction Status Date / Time amoxicillin Allergy Rash Verified 04/09/22 19:34 Penicillins Allergy Rash Verified 04/09/22 19:34 Home Medications Medication Instructions Recorded Confirmed Type tamsulosin 0.4 mg capsule 0.4 mg PO QAM #30 caps 09/15/21 04/25/22 Rx levothyroxine 75 mcg tablet 75 mcg PO DAILY 11/06/21 04/25/22 History (Euthyrox) cholecalciferol (vitamin D3) 25 1,000 units BYMOUTH DAILY #30 tabs 11/19/21 04/25/22 Rx mcg (1,000 unit) tablet (Vitamin D3) duloxetine 20 mg capsule,delayed 20 mg PO QAM #30 caps 11/19/21 04/25/22 Rx release (Cymbalta) fludrocortisone 0.1 mg tablet 0.1 mg PO DAILY@0800 #30 tabs 11/19/21 04/25/22 Rx folic acid 1 mg tablet 1 mg BYMOUTH DAILY #30 tabs 11/19/21 04/25/22 Rx loperamide 2 mg capsule 2 mg PO PRN PRN Diarrhea #10 caps 11/19/21 04/25/22 Rx thiamine HCl (vitamin B1) 100 mg 100 mg BYMOUTH QAM #30 tabs 11/19/21 04/25/22 Rx tablet (Vitamin B-1) zinc sulfate 50 mg zinc (220 mg) 220 mg PO QAM #30 caps 11/19/21 04/25/22 Rx capsule Daily Vitamin C Pack 500 mg PO Q12H 11/28/21 04/25/22 History Humalog U-100 Insulin See Rx Instructions .Route .COMPLEX 11/28/21 04/25/22 History ferrous sulfate 325 mg (65 mg 325 mg PO TIDWM 11/30/21 04/25/22 History iron) tablet midodrine 10 mg tablet 10 mg BYMOUTH TID 11/30/21 04/25/22 History sdaglf-chtrrsov-cilcbax 2 cap PO TIDWM 30 days #180 caps 12/02/21 04/25/22 Rx 12,000-38,000-60,000 unit capsule,delayed rel (Creon) acetaminophen 500 mg tablet 1,000 mg PO Q6H PRN Mild to 04/09/22 04/25/22 History moderate pain ergocalciferol (vitamin D2) 1,250 1,250 mcg PO WEEKLY 04/09/22 04/25/22 History mcg (50,000 unit) capsule finasteride 1 mg tablet 1 mg PO DAILY 04/09/22 04/25/22 History gabapentin 100 mg capsule 200 mg PO BID 04/09/22 04/25/22 History pregabalin 75 mg capsule (Lyrica) 75 mg PO TID 04/09/22 04/25/22 History magnesium oxide 400 mg (241.3 mg 400 mg PO QAM 30 days #30 tabs 04/17/22 04/25/22 Rx magnesium) tablet sodium bicarbonate 650 mg tablet 650 mg PO BID 30 days #60 tabs 04/17/22 04/25/22 Rx insulin glargine 100 unit/mL 15 unit (0.15 mL) subcut HS #10 mL 04/24/22 04/25/22 Rx subcutaneous solution (Lantus U-100 Insulin) nicotine 21 mg/24 hr daily 1 patch transdermal QAM #28 ea 04/24/22 04/25/22 Rx transdermal patch (Nicoderm CQ) silver 200 mcg/gram topical gel 1 applic topical DAILY #30 grams 04/24/22 04/25/22 Rx (Silver-Sept) Laboratory Tests 04/28/22 04/28/22 04/29/22 16:34 20:08 05:57 WBC 12.6 K/mm3 H K/mm3 (4.5-10.0) RBC 2.59 M/mm3 L M/mm3 (4.6-6.20) Hgb 7.3 g/dL L g/dL (14.0-18.0) Hct 23.2 % L % (42.0-52.0) MCV 89.6 fl fl (80-100) MCH 28.2 pg pg (26-34) MCHC 31.5 g/dl L g/dl (32-36) RDW 14.7 % H % (11.5-14.5) Plt Count 141 k/mm3 L k/mm3 (150-375) MPV 10.3 fl fl (7.4-10.4) Immature Gran % (Auto) 0.4 % % (0-0.5) Neut % (Auto) 72.1 % % (45.5-73.1) Lymph % (Auto) 18.2 % L % (18.3-44.2) [place] % (Auto) 6.5 % % (2.6-8.5) Eos % (Auto) 2.4 % % (0-4.4) Baso % (Auto) 0.4 % % (0.2-1.2) Lymph # (Auto) 2.28 K/mm3 K/mm3 (0.9-3.2) [place] # (Auto) 0.8 K/mm3 H K/mm3 (0.1-0.6) Eos # (Auto) 0
--- NOTE | 2022-04-29 14:14 | WPDGICN ---
Assessment and Plan Assessment and plan (1) Chronic diarrhea: Code(s): K52.9 - Noninfective gastroenteritis and colitis, unspecified Status: Chronic Assessment and Plan: most likely from EPI/chronic pancreatitis, uncontrolled DM, etc continue with imodium, creon now could be exacerbated by systemic antibiotics that he is using to treat urological infection patient at some point will need to have colonoscopy to assess if colitis, etc (2) Pancreatic insufficiency: Code(s): K86.89 - Other specified diseases of pancreas Status: Chronic Assessment and Plan: chronic, on treatment (3) Sepsis: Code(s): A41.9 - Sepsis, unspecified organism Status: Acute Assessment and Plan: resolved (4) Scrotal abscess: Code(s): N49.2 - Inflammatory disorders of scrotum Status: Acute Assessment and Plan: on treatment urology on board (5) Severe muscle deconditioning: Code(s): R29.898 - Other symptoms and signs involving the musculoskeletal system Status: Acute (6) Other retention of urine: Code(s): R33.8 - Other retention of urine Status: Acute GI Consult Note Consult date/time: 04/29/22 14:14 Reason for consult: chronic diarrhea, chronic pancreatitis. HPI: Shad Rodriguez is a 57 year old male with past medical history of chronic pancreatitis and pancreatic insufficiency, diabetes with complications of diabetic neuropathy, gastroparesis?who I met him when he was admitted 02/2022 with AMS and sepsis. I was called last time because chronic diarrhea most likely secondary from pancreatic insufficiency (confirmed by imaging and also abnormal pancreatic elastase in stool), he was using creon and imodium AD at home. He has chronic urinary retention managed with indwelling loera and was admitted with sepsis, found to have an abscess involving his bulbar urethra and scrotum, treated by urology and antibiotics. He is feeling better now. As far as diarrhea, this is chronic and normally 5-6 times daily, no accidents. Last colonoscopy about 10 years ago. He is eating. Review of Systems Constitutional: Constitutional: Reports weakness Eyes: Eyes: Denies blurry vision ENT: Reports Normal hearing present Cardiovascular: Cardiovascular: Denies chest pain Respiratory: Respiratory: Denies chest congestion Gastrointestinal: Gastrointestinal: Reports diarrhea Genitourinary: Genitourinary: Reports dysuria and Reports urinary urgency Musculoskeletal: Musculoskeletal: Denies back pain Integumentary/Breasts: Skin/Breast: Denies rash Neurologic: Denies confusion Psychiatric: Psychiatric: Denies behavioral changes [facility] Past Medical History Medical History (Updated 04/29/22 @ 13:16 by Alejandro Henderson MD) Alcohol dependence Bacteremia due to Klebsiella pneumoniae (11/2021) Bacteremia due to Klebsiella pneumoniae Bladder outlet obstruction BPH (benign prostatic hyperplasia) Cavitary lesion of lung Chronic anemia Decubitus ulcer Delirium due to general medical condition Diabetes 1.5, managed as type 2 Diabetic peripheral neuropathy Fecal incontinence Gastroparesis Gastroparesis History of alcohol abuse Hypothyroidism TATUM (iron deficiency anemia) Insulin dependent type 2 diabetes mellitus Hemoglobin A1c was greater than 14% on 11/07/2021. Orthostatic hypotension (~11/2021) Osteopenia determined by x-ray Pancreatic insufficiency Pancreatitis Protein calorie malnutrition Pulmonary embolism Scrotal abscess Sepsis Severe muscle deconditioning Thoracic compression fracture T9, T10, T12 Tobacco dependence Trauma of urethra Weakness generalized Surgical History Surgical History (Updated 04/25/22 @ 18:19 by Charla Douglas NP) History of endoscopic retrograde cholangiopancreatography Patient reports pancreatic stent x2. History of tonsillectomy Family History Family History S
[2022-04-29 16:31] LABS: IFOB Positive Control Positive; Immunochemical Fecal Occult Bl Positive (N)
[2022-04-29 16:42] LABS: Glucose Point of Care 120 mg/dl (65-105)
[2022-04-29] MEDS: ERTAPENEM 1 GM/NS 50 ML 1 GM/50 ML BAG IVPB (17:00)
[2022-04-29] MEDS: INSULIN ASPART (*BKC) 100 UNITS/ML SUB-Q (17:04)
[2022-04-29] MEDS: HYDROcodone/acetaminophen (*CRX) 5-325 MG TABLET 1 TAB PO (17:37)
[2022-04-29 20:19] VITALS: BP 132/75; PULSE 93; RESP 16; TEMP 36.1; O2SAT 99
[2022-04-29] MEDS: INSULIN GLARGINE (*BKC) 100 UNITS/ML 15 UNITS SUB-Q (21:24)
--- NOTE | 2022-04-29 21:38 | PC.NURSE ---
Upon assessment, pt IJ central line was not flushing. When assessed further, the line was completely out and catheter was covered behind his right shoulder. Site is cleaned, covered with gauze. No bleeding was noticed. Pt has an IV peripheral line for any needed medication. Will continue to monitor.
[2022-04-29 21:40] LABS: Glucose Point of Care 144 mg/dl (65-105)
[2022-04-30] VITALS (14 sets, daily range): BP systolic 89–140; BP diastolic 55–82; PULSE 64–98; RESP 10–16; TEMP 35.7–37; O2SAT 95–100
[2022-04-30] MEDS: LOPERAMIDE HCL 2 MG CAPSULE 4 MG PO ×4 (01:19→23:50)
[2022-04-30 06:09] LABS: Basophils Absolute Auto 0.1 K/mm3 (0.0-0.1); Basophils Percent Auto 0.3 % (0.2-1.2); Eosinophils Absolute Auto 0.3 K/mm3 (0-0.3); Eosinophils Percent Auto 1.9 % (0-4.4); Hematocrit 25.4 % (42.0-52.0); Hemoglobin 7.6 g/dL (14.0-18.0); Immature Granulocyte Absolute 0.08 K/mm3 (0.00-0.031); Immature Granulocyte Percent A 0.5 % (0-0.5); Lymphocytes Absolute Auto 2.18 K/mm3 (0.9-3.2); Lymphocytes Percent Auto 14.1 % (18.3-44.2); Mean Corpuscular HGB Conc 29.9 g/dl (32-36); Mean Corpuscular Hemoglobin 27.2 pg (26-34); Mean Platelet Volume 9.7 fl (7.4-10.4); Monocytes Absolute Auto 0.9 K/mm3 (0.1-0.6); Monocytes Percent Auto 5.6 % (2.6-8.5); Neutrophils Percent Auto 77.6 % (45.5-73.1); Platelet Count Result 128 k/mm3 (150-375); Red Blood Count 2.79 M/mm3 (4.6-6.20); Red Cell Distribution Width 14.8 % (11.5-14.5); White Blood Count 15.5 K/mm3 (4.5-10.0)
[2022-04-30] MEDS: LEVOTHYROXINE SODIUM 75 MCG TABLET PO (06:12)
[2022-04-30 06:15] LABS: Anion Gap 8 mmol/L (8-16); Blood Urea Nitrogen 10 mg/dL (9-20); Calcium 8.1 mg/dL (8.4-10.2); Carbon Dioxide 28 mmol/L (22-30); Chloride 106 mmol/L (98-107); Estimated CRCL calculation 31 ml/min; Estimated Glomerular Filt Rate 52; Glucose 54 mg/dL (65-110); Magnesium 1.6 mg/dL (1.6-2.3); Potassium 3.2 mmol/L (3.4-5.0); Sodium 142 mmol/L (137-145)
[2022-04-30] MEDS: GLUCOSE ORAL GEL 15 GM OF GLUCSE IN 37.5 GM TUBE PO (06:19)
[2022-04-30 06:20] LABS: Glucose Point of Care 45 mg/dl (65-105)
--- NOTE | 2022-04-30 06:50 | WPDHPUPDATE1 ---
History and Physical Update Update Date/Time: 04/30/22 06:50 History and Physical has been reviewed, including an updated exam of the patient. There are NO changes in the patient's condition. Risks, benefits, and alternatives have been discussed and questions answered. Patient agrees to proceed with procedure.
[2022-04-30 07:18] LABS: Hypochromasia 1+ (NORMAL); Platelet Estimate Decreased (Adequate)
[2022-04-30] MEDS: DEXTROSE 50% 25 GM/50 ML SYRINGE IV PUSH ×4 (07:33→13:17)
--- NOTE | 2022-04-30 07:46 | PC.NURSE ---
Around 0445 pt was trying to get out of bed while confused and pt's suprapubic catheter got stuck between rails and it got pulled out. No bleeding or drainage was noticed.
--- NOTE | 2022-04-30 07:48 | PC.NURSE ---
This morning critical lab was reported of low glucose of 45. PO glucagon gel was given and glucose was rechecked, which was 47. Then IV 50% dextrose ivp was given and will reassess after 15 minutes.
[2022-04-30 08:03] LABS: Glucose Point of Care 164 mg/dl (65-105)
[2022-04-30 08:03] LABS: Glucose Point of Care 47 mg/dl (65-105)
[2022-04-30] MEDS: TOLNAFTATE 1% POWDER 45 GM BTL 1 APPLIC TOPICAL ×2 (10:51→21:38)
[2022-04-30] MEDS: NICOTINE (*PBKC) 21 MG PATCH 1 PATCH TRANSDERM (10:51)
[2022-04-30 11:02] LABS: Glucose Point of Care 40 mg/dl (65-105)
[2022-04-30 11:02] LABS: Glucose Point of Care 155 mg/dl (65-105)
[2022-04-30 12:02] LABS: Glucose Point of Care 56 mg/dl (65-105)
[2022-04-30] MEDS: LACTATED RINGERS 1,000 ML 30 ML IV CONT (12:06)
[2022-04-30 12:15] LABS: Glucose Point of Care 121 mg/dl (65-105)
--- NOTE | 2022-04-30 13:18 | W.PM.PROC2 ---
Procedure Note - Detailed Date of Procedure 04/30/22 Pre-op Diagnosis Scrotal/urethral abscess with urethral disruption Post-op Diagnosis Same Procedure Performed Cystoscopy, complicated catheter placement and cystogram Surgeon Al Rivera MD Anesthesia MAC Description of Procedure Patient is brought to the operative suite was prepped draped in routine sterile fashion while in dorsal lithotomy position. 2% xylocaine jelly was introduced intraurethrally and systemic sedation is administered per the anesthesia department. Cystoscopy is undertaken with a 16 F flexible cystoscope. He has a large abscess cavity in the area of the bulbous urethra but I was able to identify the prostatic urethra was situated anteriorly. I passed a wire to the bladder and placed a 18 F [place] tip catheter into the bladder. Appropriate positioning was confirmed by cystogram. And a catheter was placed to drainage the patient was taken recovery room good condition Drains Yes Packing No Pathology Yes Complications No immediate complications Condition Stable
[2022-04-30 13:44] LABS: Glucose Point of Care 56 mg/dl (65-105)
[2022-04-30 13:44] LABS: Glucose Point of Care 102 mg/dl (65-105)
[2022-04-30 14:39] LABS: Glucose Point of Care 70 mg/dl (65-105)
[2022-04-30] MEDS: SILVERGEL (ELTA) 45 ML 1 APPLIC TOPICAL (16:29)
[2022-04-30] MEDS: GABAPENTIN 100 MG CAPSULE 200 MG PO (16:48)
[2022-04-30] MEDS: FERROUS SULFATE 324 MG TABLET PO (16:48)
--- NOTE | 2022-04-30 16:50 | PM.IMPN ---
Progress Note: A&P Assessment and Plan (1) Sepsis: Code(s): A41.9 - Sepsis, unspecified organism Status: Acute Assessment and Plan: -Urethral and scrotal abscess with sepsis status post suprapubic catheter placement. Urology following -previously on pressors -Blood cx NGTD, urine cx with ramiro. Abscess cx growing ESBL E coli and ramiro -on Ertapenem D#5, started 7 day course of diflucan 04/29 (2) Abscess of scrotum: Code(s): N49.2 - Inflammatory disorders of scrotum Status: Acute Assessment and Plan: As above (3) UTI (urinary tract infection) due to urinary indwelling Ellison catheter: Code(s): T83.511A - Infection and inflammatory reaction due to indwelling urethral catheter, initial encounter; N39.0 - Urinary tract infection, site not specified Status: Acute Assessment and Plan: History of continued UTI as well as Klebsiella pneumoniae Of note: Blood cultures from earlier this month positive for ESBL, repeat cultures were negative, treated with ertapenem for 8 days after negative blood cultures. -managment as above (4) Acute kidney injury: Code(s): N17.9 - Acute kidney failure, unspecified Status: Acute Assessment and Plan: Baseline appears to be 0.9-1.1, 1.4 on admission, now resolved (5) Retention, urine: Code(s): R33.9 - Retention of urine, unspecified Status: Acute Assessment and Plan: Urology following, patient previously with suprapubic catheter. Now status post removal of suprapubic catheter, 04/30 a cystoscopy with Ellison catheter placement (6) Insulin dependent type 2 diabetes mellitus: Code(s): E11.9 - Type 2 diabetes mellitus without complications; Z79.4 - snf (current) use of insulin Status: Acute Assessment and Plan: A1c 9.8% Continue Lantus 15 units nightly, will start humalog 4 U TID WM along with high dose SSI (7) Hypotension: Code(s): I95.9 - Hypotension, unspecified Status: Acute Assessment and Plan: Patient on midodrine and fludrocortisone at baseline, appears to have chronic orthostatic hypotension, could have underlying POTS Consider outpatient cardiology workup -BP now stable (8) Chronic pancreatitis: Code(s): K86.1 - Other chronic pancreatitis Status: Acute Assessment and Plan: Long history of alcohol abuse with chronic pancreatitis, continue Creon -suspect this is etiology to chronic diarrhea, previously worked up by GI with no insidious etiology, rec inc loperamide to control. Dose maxed to 4 mg q6h -patient still having diarrhea. GI consult, recommend colonoscopy in future to assess for colitis (9) Alcohol dependence: Code(s): F10.20 - Alcohol dependence, uncomplicated Status: Acute Assessment and Plan: Continue thiamine, folic acid 04/27: no signs of w/d, doubt patient is still actively drinking due to [facility] residence, no need for CIWA at this time suspected (10) BPH (benign prostatic hyperplasia): Code(s): N40.0 - Benign prostatic hyperplasia without lower urinary tract symptoms Status: Acute Assessment and Plan: Continue Flomax and finasteride, appreciate Urology consultation (11) Hypothyroidism: Code(s): E03.9 - Hypothyroidism, unspecified Status: Acute Assessment and Plan: Continue levothyroxine, TSH nl (12) Murmur, cardiac: Code(s): R01.1 - Cardiac murmur, unspecified Status: Acute Assessment and Plan: Echo from 04/27 showed an EF of 60-65% with normal diastolic function, essentially benign echo, no valvular abnormalities or pulmonary hypertension noted (13) Tobacco dependence: Code(s): F17.200 - Nicotine dependence, unspecified, uncomplicated Status: Acute Assessment and Plan: Smoking cessation encouraged (14) Severe muscle deconditioning: Code(s): R29.898 - Other symptoms and signs involving the musculoskeletal system
[2022-04-30 16:57] LABS: Glucose Point of Care 114 mg/dl (65-105)
[2022-04-30] MEDS: ERTAPENEM 1 GM/NS 50 ML 1 GM/50 ML BAG IVPB (18:30)
[2022-04-30] MEDS: PREGABALIN (*CRX) 75 MG CAPSULE PO (18:34)
[2022-04-30] MEDS: LIPASE/AMYLASE/PROTEASE 12,000 UNITS CAP 2 CAP PO (18:35)
[2022-04-30] MEDS: MIDODRINE HCL 10 MG TABLET BY MOUTH (18:35)
[2022-04-30] MEDS: MAGNESIUM SULF 2 GM/WATER 50ML 2 GM/50 ML BAG IVPB (18:36)
[2022-04-30] MEDS: SODIUM BICARBONATE TAB 650 MG TABLET PO (18:36)
[2022-04-30] MEDS: POTASSIUM CHLORIDE 20 MEQ PACKET (FOR LIQUID) 40 MEQ PO (18:41)
[2022-04-30 20:56] LABS: Glucose Point of Care 111 mg/dl (65-105)
[2022-05-01] VITALS (10 sets, daily range): BP systolic 84–119; BP diastolic 44–62; PULSE 63–97; RESP 12–16; TEMP 36.1–36.9; O2SAT 96–100
[2022-05-01 04:57] LABS: Basophils Absolute Auto 0.1 K/mm3 (0.0-0.1); Basophils Percent Auto 0.5 % (0.2-1.2); Eosinophils Absolute Auto 0.5 K/mm3 (0-0.3); Eosinophils Percent Auto 3.4 % (0-4.4); Immature Granulocyte Absolute 0.09 K/mm3 (0.00-0.031); Immature Granulocyte Percent A 0.6 % (0-0.5); Immature Platelet Fraction Pct 3.3 % (0.9-11.2); Lymphocytes Absolute Auto 2.59 K/mm3 (0.9-3.2); Lymphocytes Percent Auto 17.7 % (18.3-44.2); Mean Corpuscular HGB Conc 30.9 g/dl (32-36); Mean Corpuscular Hemoglobin 27.5 pg (26-34); Mean Corpuscular Volume 89.1 fl (80-100); Mean Platelet Volume 10.3 fl (7.4-10.4); Monocytes Absolute Auto 0.8 K/mm3 (0.1-0.6); Monocytes Percent Auto 5.6 % (2.6-8.5); Neutrophils Absolute Auto 10.6 K/mm3 (1.3-6.7); Neutrophils Percent Auto 72.2 % (45.5-73.1); Platelet Count Result 124 k/mm3 (150-375); Red Blood Count 2.47 M/mm3 (4.6-6.20); Red Cell Distribution Width 14.7 % (11.5-14.5); White Blood Count 14.7 K/mm3 (4.5-10.0)
[2022-05-01 05:05] LABS: Hemoglobin 6.8 g/dL (14.0-18.0)
[2022-05-01 05:20] LABS: Anion Gap 5 mmol/L (8-16); Blood Urea Nitrogen 12 mg/dL (9-20); Calcium 8.3 mg/dL (8.4-10.2); Carbon Dioxide 29 mmol/L (22-30); Chloride 101 mmol/L (98-107); Estimated CRCL calculation 40 ml/min; Estimated Glomerular Filt Rate > 60; Glucose 100 mg/dL (65-110); Potassium 3.7 mmol/L (3.4-5.0); Sodium 135 mmol/L (137-145)
[2022-05-01] MEDS: LEVOTHYROXINE SODIUM 75 MCG TABLET PO (06:32)
[2022-05-01] MEDS: LOPERAMIDE HCL 2 MG CAPSULE 4 MG PO ×3 (06:32→18:46)
--- NOTE | 2022-05-01 08:37 | WPDANESPN ---
Anes - Prog Note Post-Op Date/Time: 05/01/22 08:37 Cardiovascular status: normal Respiratory status: normal Airway patency: baseline Mental status: baseline Post-Op hydration status: normal Vital Signs: Last Vital Signs Temp 36.1 C L 05/01/22 04:42 Pulse 65 05/01/22 04:42 Resp 16 05/01/22 04:42 BP 98/62 L 05/01/22 04:42 Pulse Ox 100 05/01/22 04:42 O2 Del Method Room Air 04/30/22 14:20 O2 Flow Rate 8 04/30/22 13:40 Pain Score (VAS): 09/15 I/O: Intake & Output 04/30/22 05/01/22 05/01/22 23:59 07:59 15:59 Intake Total 580 222 Output Total 400 950 Balance 180 -728 Laboratory Tests 05/01/22 04:23 05/01/22 04:23 04/27/22 04/30/22 04/30/22 18:30 10:19 10:50 WBC RBC Hgb Hct MCV MCH MCHC RDW Plt Count MPV Immature Gran % (Auto) Neut % (Auto) Lymph % (Auto) [place] % (Auto) Eos % (Auto) Baso % (Auto) Lymph # (Auto) [place] # (Auto) Eos # (Auto) Baso # (Auto) Abs Immat Gran (auto) Absolute Neuts (auto) Absolute Nucleated RBC Nucleated RBC % % Immature Plt Fraction Sodium Potassium Chloride Carbon Dioxide Anion Gap BUN Creatinine Estim Creat Clear Calc Estimated GFR Glucose POC Capillary Glucose 40 L* 155 H Calcium Magnesium Thiamine (Vit B1) Sylvester TNP 04/30/22 04/30/22 04/30/22 11:59 12:13 13:13 WBC RBC Hgb Hct MCV MCH MCHC RDW Plt Count MPV Immature Gran % (Auto) Neut % (Auto) Lymph % (Auto) [place] % (Auto) Eos % (Auto) Baso % (Auto) Lymph # (Auto) [place] # (Auto) Eos # (Auto) Baso # (Auto) Abs Immat Gran (auto) Absolute Neuts (auto) Absolute Nucleated RBC Nucleated RBC % % Immature Plt Fraction Sodium Potassium Chloride Carbon Dioxide Anion Gap BUN Creatinine Estim Creat Clear Calc Estimated GFR Glucose POC Capillary Glucose 56 L* 121 H 56 L* Calcium Magnesium Thiamine (Vit B1) Sylvester 04/30/22 04/30/22 04/30/22 13:42 14:31 16:55 WBC RBC Hgb Hct MCV MCH MCHC RDW Plt Count MPV Immature Gran % (Auto) Neut % (Auto) Lymph % (Auto) [place] % (Auto) Eos % (Auto) Baso % (Auto) Lymph # (Auto) [place] # (Auto) Eos # (Auto) Baso # (Auto) Abs Immat Gran (auto) Absolute Neuts (auto) Absolute Nucleated RBC Nucleated RBC % % Immature Plt Fraction Sodium Potassium Chloride Carbon Dioxide Anion Gap BUN Creatinine Estim Creat Clear Calc Estimated GFR Glucose POC Capillary Glucose 102 70 114 H Calcium Magnesium Thiamine (Vit B1) Sylvester 04/30/22 05/01/22 05/01/22 20:14 04:23 04:23 WBC 14.7 H RBC 2.47 L Hgb 6.8 L* Hct 22.0 L MCV 89.1 MCH 27.5 MCHC 30.9 L RDW 14.7 H Plt Count 124 L MPV 10.3 Immature Gran % (Auto) 0.6 H Neut % (Auto) 72.2 Lymph % (Auto) 17.7 L [place] % (Auto) 5.6 Eos % (Auto) 3.4 Baso % (Auto) 0.5 Lymph # (Auto) 2.59 [place] # (Auto) 0.8 H Eos # (Auto) 0.5 H Baso # (Auto) 0.1 Abs Immat Gran (auto) 0.09 H Absolute Neuts (auto) 10.6 H Absolute Nucleated RBC 0.0 Nucleated RBC % 0.0 % Immature Plt Fraction 3.3 Sodium 135 L Potassium 3.7 Chloride 101 Carbon Dioxide 29 Anion Gap 5 L BUN 12 Creatinine 1.10 Estim Creat Clear Calc 40 Estimated GFR > 60 Glucose 100 POC Capillary Glucose 111 H Calcium 8.3 L Magnesium 2.0 Thiamine (Vit B1) Sylvester Microbiology 04/25/22 12:11 Blood Blood Culture - Final 04/25/22 12:11 Blood Blood Culture - Final Post-procedural complaints: none Patient Feedback: Patient satisfied with anesthetic care.
[2022-05-01] MEDS: MIDODRINE HCL 10 MG TABLET BY MOUTH ×3 (08:38→18:46)
[2022-05-01] MEDS: FERROUS SULFATE 324 MG TABLET PO ×3 (08:39→18:44)
[2022-05-01] MEDS: LIPASE/AMYLASE/PROTEASE 12,000 UNITS CAP 2 CAP PO ×3 (08:39→18:45)
[2022-05-01] MEDS: PREGABALIN (*CRX) 75 MG CAPSULE PO ×3 (08:39→18:53)
[2022-05-01] MEDS: FOLIC ACID 1 MG TABLET BY MOUTH (08:39)
[2022-05-01] MEDS: ENOXAPARIN 40 MG/0.4 ML SYRINGE SUB-Q (08:39)
[2022-05-01] MEDS: TAMSULOSIN HCL 0.4 MG CAPSULE PO (08:40)
[2022-05-01] MEDS: THIAMINE HCL 100 MG TABLET BY MOUTH (08:40)
[2022-05-01] MEDS: FLUDROCORTISONE ACETATE 0.1 MG TABLET PO (08:40)
[2022-05-01] MEDS: FLUCONAZOLE 100 MG TABLET PO (08:40)
[2022-05-01] MEDS: MAGNESIUM OXIDE 400 MG TABLET PO (08:40)
[2022-05-01] MEDS: SODIUM BICARBONATE TAB 650 MG TABLET PO (08:40)
[2022-05-01] MEDS: ZINC SULFATE 220 MG CAPSULE PO (08:40)
[2022-05-01] MEDS: DULoxetine HCL 20 MG CAPSULE.DR PO (08:40)
[2022-05-01] MEDS: GABAPENTIN 100 MG CAPSULE 200 MG PO ×2 (08:40→18:44)
[2022-05-01] MEDS: SILVERGEL (ELTA) 45 ML 1 APPLIC TOPICAL (08:41)
[2022-05-01] MEDS: PANTOPRAZOLE 40 MG TABLET PO (08:41)
[2022-05-01] MEDS: TOLNAFTATE 1% POWDER 45 GM BTL 1 APPLIC TOPICAL ×2 (08:41→20:09)
[2022-05-01 08:57] LABS: Glucose Point of Care 165 mg/dl (65-105)
[2022-05-01] MEDS: INSULIN ASPART (*BKC) 100 UNITS/ML SUB-Q ×3 (08:57→18:44)
--- NOTE | 2022-05-01 11:44 | WPDUROPN2 ---
Progress Note: A&P Assessment and Plan (1) Trauma of urethra: Code(s): S37.30XA - Unspecified injury of urethra, initial encounter Status: Acute Assessment and Plan: Patient will keep loera in for 4-6 weeks and have it changed in the office by Dr. Rivera with a guidewire. No further evaluation needed at this time. Loera is draining well and patient is tolerating it. (2) Scrotal abscess: Code(s): N49.2 - Inflammatory disorders of scrotum Status: Acute Assessment and Plan: Healing nicely, continue IV antibiotics, WBC is decreasing. Subjective Subjective Date/Time Seen: 05/01/22 11:44 Cystoscopy, complicated catheter placement and cystogram. Patient doing well, catheter is draining clear, yellow urine to gravity, he denies pain. He removed his SP tube himself yesterday morning prior to his procedure by accident. Post Op day: 1 Review of Systems Cardiovascular: Cardiovascular: Denies chest pain Respiratory: Respiratory: Reports no additional respiratory complaints Gastrointestinal: Gastrointestinal: Denies abdominal pain, Denies nausea and Denies vomiting Genitourinary: Genitourinary: Denies hematuria, Denies genital pain, Denies dysuria, Denies flank pain and Denies testicular pain Exam Const: General: cooperative Cardio: Rate: regular rate GI: Inspection: incision (SP tube insertion site is closed and no drainage or redness/edema is presen) GI Palp: Yes Soft to palpation and No Tenderness to palpation present (GI) : General: Yes no CVA tenderness Penis: Yes normal penis Meatus: meatus normal Urinary Catheter: Urinary Catheter: patent and draining and urine clear Extrem: Right lower extremity: no edema Left lower extremity: no edema Objective Data Vital Signs Vital Signs: Vital Signs - 24 hr 04/30/22 11:57 04/30/22 13:10 04/30/22 13:25 Temperature 98.6 F 98.2 F Pulse Rate 90 75 68 Respiratory Rate 16 12 10 L Blood Pressure 113/78 89/63 L 99/67 L Pulse Oximetry 100 100 100 Oxygen Delivery Room Air Simple Face Mask Simple Face Mask Oxygen Flow Rate 8 8 04/30/22 13:40 04/30/22 13:55 04/30/22 14:10 Temperature Pulse Rate 70 70 64 Respiratory Rate 10 L 10 L 10 L Blood Pressure 104/69 100/68 97/65 L Pulse Oximetry 100 98 98 Oxygen Delivery Simple Face Mask Room Air Room Air Oxygen Flow Rate 8 04/30/22 14:20 04/30/22 14:39 04/30/22 14:55 Temperature 96.3 F L 96.3 F L Pulse Rate 69 68 Respiratory Rate 16 16 Blood Pressure 99/65 L 91/59 L Pulse Oximetry 97 100 99 Oxygen Delivery Room Air Oxygen Flow Rate 04/30/22 15:28 04/30/22 17:26 04/30/22 20:09 Temperature 96.7 F L 98.0 F 97.8 F Pulse Rate 76 98 70 Respiratory Rate 16 16 16 Blood Pressure 108/61 100/55 L 109/71 Pulse Oximetry 98 95 100 Oxygen Delivery Oxygen Flow Rate 04/30/22 23:57 05/01/22 04:42 05/01/22 08:39 Temperature 97 F L 96.9 F L Pulse Rate 74 65 Respiratory Rate 16 16 Blood Pressure 112/59 L 98/62 L Pulse Oximetry 98 100 Oxygen Delivery Room Air Oxygen Flow Rate Intake/Output Intake/Output: Intake & Output 04/28/22 04/29/22 04/30/22 05/01/22 23:59 23:59 23:59 23:59 Intake Total 1360 1870 1730 222 Output Total 750 600 400 950 Balance 610 1270 1330 -728 Meds/Results Medications: Active Medications Generic Name Dose Route Start Last Admin Trade Name Freq PRN Reason Stop Dose Admin Acetaminophen 1,000 mg 04/25/22 18:33 Acetaminophen 500 Mg Tablet PO Q6H PRN PAIN 1-3 Hydrocodone Bitart/Acetaminophen 1 tab 04/28/22 15:18 04/29/22 17:37 Hydrocodone/Acetaminophen (*Crx) 5-325 Mg Tablet PO 1 tab Q4H PRN Administration Pain Rated 4-6 Lipase/Protease/Amylase 2 cap 04/26/22 08:00 05/01/22 08:39 Lipase/Amylase/Protease 12,000 Units Cap PO 2 cap TIDWM CINDY Administration Dextrose 12.5 gm 04/25/22 18:18 04/30/22 13:17 Dextrose 50% 25 Gm/50 Ml Syringe IV PUSH 12.5 gm UT
--- NOTE | 2022-05-01 12:05 | PCNFU ---
Nutrition Follow-Up Complete: Severe protein calorie malnutrition related to increased needs from wounds, previous poor intakes, as evidenced by wound photos, patient reports of weight loss, and BMI 14.6 Goal: Meal intake >75% - Meeting goal Tolerate supplements - Unable to check with patient today but intakes have been good. Pt current nutrition is Consistent Carb diabetic Nutrition recommendation: Continue current diet order, Sincere BID and chocolate Glucerna TID. Last recorded weight is 42.9 kg. Bowel Motility: +1 BM 04/30/22 Labs Reviewed: NA 135, Glu 165 Meds Noted: Enoxaparin, pepcid, folic acid, novolog, lantus, synthroid, vancomycin Skin: State II pressure areas ciccyx and ankle Additional Notes: Pt was sleeping when seen. Appetite has been good. Monitoring weight, intake, skin, labs, discharge planning. Follow up in 4 days.
--- NOTE | 2022-05-01 12:06 | PCCDE ---
chart review due to severe hypoglycemia 04/30. Current insulin orders: 15 units Lantus HS, 4 units Novolog TID WM, high dose correction. Weight =42.9kg Calculated insulin needs: (0.4 units/kg)=TDD of 17 units; give 50% basal and other 50% rapid acting divided by 3 meals. Recommend decrease to 10 units Lantus; monitor and consider decreased prandial dosing as well. Called Dr Diaz with recs and also notified that Lantus was held last night.
[2022-05-01 12:18] LABS: Glucose Point of Care 143 mg/dl (65-105)
--- NOTE | 2022-05-01 16:19 | PM.IMPN ---
Progress Note: A&P Assessment and Plan (1) Sepsis: Code(s): A41.9 - Sepsis, unspecified organism Status: Acute Assessment and Plan: -Urethral and scrotal abscess with sepsis status post suprapubic catheter placement. Urology following -previously on pressors -Blood cx NGTD, urine cx with ramiro. Abscess cx growing ESBL E coli and ramiro -on Ertapenem D#6, started 7 day course of diflucan 04/29. Discussed with ID pharmacist, will treat with ertapenem through 05/13. PICC line order placed (2) Abscess of scrotum: Code(s): N49.2 - Inflammatory disorders of scrotum Status: Acute Assessment and Plan: As above (3) UTI (urinary tract infection) due to urinary indwelling Ellison catheter: Code(s): T83.511A - Infection and inflammatory reaction due to indwelling urethral catheter, initial encounter; N39.0 - Urinary tract infection, site not specified Status: Acute Assessment and Plan: History of continued UTI as well as Klebsiella pneumoniae Of note: Blood cultures from earlier this month positive for ESBL, repeat cultures were negative, treated with ertapenem for 8 days after negative blood cultures. -managment as above (4) Anemia: Code(s): D64.9 - Anemia, unspecified Status: Acute Assessment and Plan: Patient Hb 04/27 was 6/1, today 04/29 7.3 decreased from 7.7 04/28. 05/01 hemoglobin 6.8, status post 1 unit transfusion. Will reach out to GI regarding evaluation given patient's fecal occult positive (5) Acute kidney injury: Code(s): N17.9 - Acute kidney failure, unspecified Status: Acute Assessment and Plan: Baseline appears to be 0.9-1.1, 1.4 on admission, now resolved (6) Retention, urine: Code(s): R33.9 - Retention of urine, unspecified Status: Acute Assessment and Plan: Urology following, patient previously with suprapubic catheter. Now status post removal of suprapubic catheter, 04/30 cystoscopy with Ellison catheter placement (7) Insulin dependent type 2 diabetes mellitus: Code(s): E11.9 - Type 2 diabetes mellitus without complications; Z79.4 - termite helper (current) use of insulin Status: Acute Assessment and Plan: A1c 9.8% Continue Lantus 15 units nightly, will start humalog 4 U TID WM along with high dose SSI (8) Hypotension: Code(s): I95.9 - Hypotension, unspecified Status: Acute Assessment and Plan: Patient on midodrine and fludrocortisone at baseline, appears to have chronic orthostatic hypotension, could have underlying POTS Consider outpatient cardiology workup -BP now stable (9) Chronic pancreatitis: Code(s): K86.1 - Other chronic pancreatitis Status: Acute Assessment and Plan: Long history of alcohol abuse with chronic pancreatitis, continue Creon -suspect this is etiology to chronic diarrhea, previously worked up by GI with no insidious etiology, rec inc loperamide to control. Dose maxed to 4 mg q6h -patient still having diarrhea. GI consult, recommend colonoscopy in future to assess for colitis (10) Alcohol dependence: Code(s): F10.20 - Alcohol dependence, uncomplicated Status: Acute Assessment and Plan: Continue thiamine, folic acid 04/27: no signs of w/d, doubt patient is still actively drinking due to [facility] residence, no need for CIWA at this time suspected (11) BPH (benign prostatic hyperplasia): Code(s): N40.0 - Benign prostatic hyperplasia without lower urinary tract symptoms Status: Acute Assessment and Plan: Continue Flomax and finasteride, appreciate Urology consultation (12) Hypothyroidism: Code(s): E03.9 - Hypothyroidism, unspecified Status: Acute Assessment and Plan: Continue levothyroxine, TSH nl (13) Murmur, cardiac: Code(s): R01.1 - Cardiac murmur, unspecified Status: Acute Assessment and Plan: Echo from 04/27 showed an EF of 60-65% with normal diastolic fun
[2022-05-01 17:25] LABS: Glucose Point of Care 66 mg/dl (65-105)
[2022-05-01 17:48] LABS: Glucose Point of Care 120 mg/dl (65-105)
[2022-05-01 20:06] LABS: Glucose Point of Care 160 mg/dl (65-105)
[2022-05-01] MEDS: INSULIN GLARGINE (*BKC) 100 UNITS/ML 15 UNITS SUB-Q (20:07)
[2022-05-01] MEDS: CENTRAL LINE FLUSH 10 ML IV PUSH ×2 (20:09)
[2022-05-01] MEDS: ERTAPENEM 1 GM/NS 50 ML 1 GM/50 ML BAG IVPB (21:50)
[2022-05-02] MEDS: LOPERAMIDE HCL 2 MG CAPSULE 4 MG PO ×5 (00:29→23:40)
[2022-05-02 04:48] VITALS: BP 110/58; PULSE 77; RESP 18; TEMP 36.7; O2SAT 98
[2022-05-02 05:43] LABS: Basophils Absolute Auto 0.1 K/mm3 (0.0-0.1); Basophils Percent Auto 0.4 % (0.2-1.2); Eosinophils Absolute Auto 0.4 K/mm3 (0-0.3); Eosinophils Percent Auto 3.1 % (0-4.4); Hemoglobin 8.2 g/dL (14.0-18.0); Immature Granulocyte Absolute 0.06 K/mm3 (0.00-0.031); Immature Granulocyte Percent A 0.5 % (0-0.5); Lymphocytes Absolute Auto 2.63 K/mm3 (0.9-3.2); Lymphocytes Percent Auto 20.6 % (18.3-44.2); Mean Corpuscular HGB Conc 31.5 g/dl (32-36); Mean Corpuscular Hemoglobin 27.3 pg (26-34); Mean Corpuscular Volume 86.7 fl (80-100); Mean Platelet Volume 9.5 fl (7.4-10.4); Monocytes Absolute Auto 0.7 K/mm3 (0.1-0.6); Monocytes Percent Auto 5.8 % (2.6-8.5); Neutrophils Absolute Auto 8.9 K/mm3 (1.3-6.7); Neutrophils Percent Auto 69.6 % (45.5-73.1); Platelet Count Result 128 k/mm3 (150-375); Red Cell Distribution Width 15.6 % (11.5-14.5); White Blood Count 12.8 K/mm3 (4.5-10.0)
[2022-05-02 05:53] LABS: Anion Gap 8 mmol/L (8-16); Blood Urea Nitrogen 12 mg/dL (9-20); Calcium 8.3 mg/dL (8.4-10.2); Carbon Dioxide 26 mmol/L (22-30); Chloride 104 mmol/L (98-107); Estimated CRCL calculation 42 ml/min; Estimated Glomerular Filt Rate > 60; Glucose 103 mg/dL (65-110); Magnesium 1.8 mg/dL (1.6-2.3); Potassium 3.3 mmol/L (3.4-5.0); Sodium 138 mmol/L (137-145)
[2022-05-02] MEDS: LEVOTHYROXINE SODIUM 75 MCG TABLET PO (06:07)
[2022-05-02] MEDS: THIAMINE HCL 100 MG TABLET BY MOUTH (08:22)
[2022-05-02] MEDS: LIPASE/AMYLASE/PROTEASE 12,000 UNITS CAP 2 CAP PO ×3 (08:24→17:09)
[2022-05-02 08:25] LABS: Glucose Point of Care 86 mg/dl (65-105)
[2022-05-02] MEDS: MIDODRINE HCL 10 MG TABLET BY MOUTH ×3 (08:25→17:09)
[2022-05-02] MEDS: ENOXAPARIN 40 MG/0.4 ML SYRINGE SUB-Q (08:25)
[2022-05-02] MEDS: DULoxetine HCL 20 MG CAPSULE.DR PO (08:27)
[2022-05-02] MEDS: GABAPENTIN 100 MG CAPSULE 200 MG PO ×2 (08:27→17:08)
[2022-05-02] MEDS: FLUCONAZOLE 100 MG TABLET PO (08:27)
[2022-05-02] MEDS: PREGABALIN (*CRX) 75 MG CAPSULE PO ×3 (08:27→17:12)
[2022-05-02] MEDS: FERROUS SULFATE 324 MG TABLET PO ×3 (08:27→17:08)
[2022-05-02] MEDS: ZINC SULFATE 220 MG CAPSULE PO (08:27)
[2022-05-02] MEDS: PANTOPRAZOLE 40 MG TABLET PO (08:28)
[2022-05-02] MEDS: FOLIC ACID 1 MG TABLET BY MOUTH (08:28)
[2022-05-02] MEDS: TOLNAFTATE 1% POWDER 45 GM BTL 1 APPLIC TOPICAL ×2 (08:28→20:50)
[2022-05-02] MEDS: TAMSULOSIN HCL 0.4 MG CAPSULE PO (08:28)
[2022-05-02] MEDS: MAGNESIUM OXIDE 400 MG TABLET PO (08:28)
[2022-05-02] MEDS: FLUDROCORTISONE ACETATE 0.1 MG TABLET PO (08:28)
[2022-05-02] MEDS: SILVERGEL (ELTA) 45 ML 1 APPLIC TOPICAL (08:29)
[2022-05-02 12:40] LABS: Glucose Point of Care 111 mg/dl (65-105)
[2022-05-02] MEDS: INSULIN ASPART (*BKC) 100 UNITS/ML SUB-Q (13:56)
--- NOTE | 2022-05-02 14:38 | WPDGIPROGNO ---
Progress Note: A&P Assessment and Plan (1) Chronic diarrhea: Code(s): K52.9 - Noninfective gastroenteritis and colitis, unspecified Status: Chronic Assessment and Plan: chronic and secondary from pancreatic insufficiency (confirmed by imaging and also abnormal pancreatic elastase in stool) continue with creon and imodium probably we can do a colonoscopy on Wednesday to check for colitis, also get random colon bx. Also noted + FOBT (2) Pancreatic insufficiency: Code(s): K86.89 - Other specified diseases of pancreas Status: Chronic Assessment and Plan: on creon chronic (3) Bacteremia due to Klebsiella pneumoniae: Code(s): R78.81 - Bacteremia; B96.1 - Klebsiella pneumoniae [K. 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 Status: Acute (5) Septic shock: Code(s): A41.9 - Sepsis, unspecified organism; R65.21 - Severe sepsis with septic shock Status: Acute Assessment and Plan: resolved (6) Chronic anemia: Code(s): D64.9 - Anemia, unspecified Status: Acute Assessment and Plan: FOBT + probably anemia is multifactorial but also will do a colonoscopy (7) Occult blood in stools: Code(s): R19.5 - Other fecal abnormalities Status: Acute Subjective Date/time seen: 05/02/22 14:38 Interval history: no overt gib but still with anemia, diarrhea improved, no changes Review of Systems Review of Systems: All systems reviewed & are unremarkable except as noted in HPI and below Exam Narrative: thin Const: General: comfortable and no acute distress HENMT: General nose exam: Normal nares present Eyes: General: appearance normal, both eyes and all related structures Neck: Neck: no JVD Resp: Auscultation: clear to auscultation bilaterally Cardio: Rate: regular rate Rhythm: regular rhythm GI: Inspection: non-distended GI Palp: Yes Soft to palpation Auscultation: normal bowel sounds Urinary Catheter: Urinary Catheter: patent and draining Skin: General skin exam: normal color Neuro: Speech: normal speech Extrem: General: normal to inspection Psych: Mental Status: mental status grossly normal Objective Data Vital Signs Vital Signs: Vital Signs - 24 hr 05/01/22 18:32 05/01/22 18:48 05/01/22 19:50 Temperature 97.0 F L 98.5 F 98.2 F Pulse Rate 97 67 63 Respiratory Rate 12 16 16 Blood Pressure 92/46 L 94/44 L 92/49 L Pulse Oximetry 99 98 100 Oxygen Delivery 05/01/22 20:00 05/01/22 21:39 05/01/22 21:00 Temperature 98.1 F 98.3 F 98.3 F Pulse Rate 63 76 76 Respiratory Rate 16 16 16 Blood Pressure 90/53 L 119/54 L 119/54 L Pulse Oximetry 96 100 100 Oxygen Delivery 05/01/22 19:48 05/01/22 20:48 05/02/22 04:48 Temperature 98.2 F 98.1 F 98.1 F Pulse Rate 63 63 77 Respiratory Rate 16 16 18 Blood Pressure 92/49 L 90/53 L 110/58 L Pulse Oximetry 100 96 98 Oxygen Delivery 05/02/22 08:37 Temperature Pulse Rate Respiratory Rate Blood Pressure Pulse Oximetry Oxygen Delivery Room Air Intake/Output Intake/Output: Intake & Output 04/29/22 04/30/22 05/01/22 05/02/22 23:59 23:59 23:59 23:59 Intake Total 1870 1730 1732 480 Output Total 303 067 5149 850 Balance 1270 1330 332 -370 Meds/Results Medications: Active Medications Generic Name Dose Route Start Last Admin Trade Name Freq PRN Reason Stop Dose Admin Acetaminophen 1,000 mg 04/25/22 18:33 Acetaminophen 500 Mg Tablet PO Q6H PRN PAIN 1-3 Hydrocodone Bitart/Acetaminophen 1 tab 04/28/22 15:18 04/29/22 17:37 Hydrocodone/Acetaminophen (*Crx) 5-325 Mg Tablet PO 1 tab Q4H PRN Administration Pain Rated 4-6 Lipase/Protease/Amylase 2 cap
[2022-05-02 15:28] VITALS: BP 96/53; PULSE 71; RESP 12; TEMP 35.3; O2SAT 94
[2022-05-02] MEDS: DEXTROSE 50% 25 GM/50 ML SYRINGE IV PUSH ×2 (16:55→17:01)
[2022-05-02] MEDS: POTASSIUM CHLORIDE 20 MEQ PACKET (FOR LIQUID) 40 MEQ PO (17:08)
--- NOTE | 2022-05-02 17:11 | PM.IMPN ---
Progress Note: A&P Assessment and Plan (1) Sepsis: Code(s): A41.9 - Sepsis, unspecified organism Status: Acute Assessment and Plan: -Urethral and scrotal abscess with sepsis status post suprapubic catheter placement. Urology following -previously on pressors -Blood cx NGTD, urine cx with ramiro. Abscess cx growing ESBL E coli and ramiro -on Ertapenem D#6, started 7 day course of diflucan 04/29. Discussed with ID pharmacist, will treat with ertapenem through 05/13. PICC line placed 05/02 (2) Abscess of scrotum: Code(s): N49.2 - Inflammatory disorders of scrotum Status: Acute Assessment and Plan: As above (3) UTI (urinary tract infection) due to urinary indwelling Ellison catheter: Code(s): T83.511A - Infection and inflammatory reaction due to indwelling urethral catheter, initial encounter; N39.0 - Urinary tract infection, site not specified Status: Acute Assessment and Plan: History of continued UTI as well as Klebsiella pneumoniae Of note: Blood cultures from earlier this month positive for ESBL, repeat cultures were negative, treated with ertapenem for 8 days after negative blood cultures. -managment as above (4) Anemia: Code(s): D64.9 - Anemia, unspecified Status: Acute Assessment and Plan: Patient Hb 04/27 was 6/1, today 04/29 7.3 decreased from 7.7 04/28. 05/01 hemoglobin 6.8, status post 1 unit transfusion. GI evaluated, planning for colonoscopy. (5) Acute kidney injury: Code(s): N17.9 - Acute kidney failure, unspecified Status: Acute Assessment and Plan: Baseline appears to be 0.9-1.1, 1.4 on admission, now resolved (6) Retention, urine: Code(s): R33.9 - Retention of urine, unspecified Status: Acute Assessment and Plan: Urology following, patient previously with suprapubic catheter. Now status post removal of suprapubic catheter, 04/30 cystoscopy with Ellison catheter placement (7) Insulin dependent type 2 diabetes mellitus: Code(s): E11.9 - Type 2 diabetes mellitus without complications; Z79.4 - alf (current) use of insulin Status: Acute Assessment and Plan: A1c 9.8% Given multiple hypoglycemic episodes, will decrease Lantus to 7 units nightly and removed schedule NovoLog. Maintain sliding scale insulin. (8) Hypotension: Code(s): I95.9 - Hypotension, unspecified Status: Acute Assessment and Plan: Patient on midodrine and fludrocortisone at baseline, appears to have chronic orthostatic hypotension, could have underlying POTS Consider outpatient cardiology workup -BP now stable (9) Chronic pancreatitis: Code(s): K86.1 - Other chronic pancreatitis Status: Acute Assessment and Plan: Long history of alcohol abuse with chronic pancreatitis, continue Creon -suspect this is etiology to chronic diarrhea, previously worked up by GI with no insidious etiology, rec inc loperamide to control. Dose maxed to 4 mg q6h -patient still having diarrhea. GI consult, recommend colonoscopy in future to assess for colitis (10) Alcohol dependence: Code(s): F10.20 - Alcohol dependence, uncomplicated Status: Acute Assessment and Plan: Continue thiamine, folic acid 04/27: no signs of w/d, doubt patient is still actively drinking due to [facility] residence, no need for CIWA at this time suspected (11) BPH (benign prostatic hyperplasia): Code(s): N40.0 - Benign prostatic hyperplasia without lower urinary tract symptoms Status: Acute Assessment and Plan: Continue Flomax and finasteride, appreciate Urology consultation (12) Hypothyroidism: Code(s): E03.9 - Hypothyroidism, unspecified Status: Acute Assessment and Plan: Continue levothyroxine, TSH nl (13) Murmur, cardiac: Code(s): R01.1 - Cardiac murmur, unspecified Status: Acute Assessment and Plan: Echo from 04/27 showed an EF of 60-65% with normal di
[2022-05-02] MEDS: ERTAPENEM 1 GM/NS 50 ML 1 GM/50 ML BAG IVPB (17:12)
[2022-05-02 17:48] LABS: Glucose Point of Care 190 mg/dl (65-105)
[2022-05-02 17:48] LABS: Glucose Point of Care 23 mg/dl (65-105)
[2022-05-02 18:19] LABS: Glucose Point of Care 147 mg/dl (65-105)
[2022-05-02] MEDS: CENTRAL LINE FLUSH 10 ML IV PUSH ×2 (18:38→20:52)
--- NOTE | 2022-05-02 18:38 | PC.NURSE ---
Pt sleeping for most of the day. Pt had PICC line placed. Pt became difficult to arouse verbally. Pt was arousable to touch. Pts blood sugar was [address] Diaz in the room and ordered one amp Dextrose 50. Pt was given dose and immediately began to respond. Pt began to wake up and blood sugar was rechecked at 15 minutes and was 190 at 1712. Pt rechecked 1 hour later and blood sugar was 147 at 1817. Values double checked on glucometer [id number] since they did not transfer over in the system. Pt continues to be monitored for signs and symptoms of hypoglycemic event.
[2022-05-02 19:59] VITALS: BP 110/64; PULSE 95; RESP 19; TEMP 37.6; O2SAT 93
[2022-05-02 20:00] VITALS: PULSE 95; RESP 19; O2SAT 93
[2022-05-02] MEDS: INSULIN GLARGINE (*BKC) 100 UNITS/ML 7 UNITS SUB-Q (20:52)
[2022-05-02 20:55] LABS: Glucose Point of Care 255 mg/dl (65-105)
[2022-05-03 04:44] VITALS: BP 113/46; PULSE 84; RESP 20; TEMP 36.7; O2SAT 94
[2022-05-03] MEDS: LOPERAMIDE HCL 2 MG CAPSULE 4 MG PO ×2 (06:02→12:34)
[2022-05-03] MEDS: LEVOTHYROXINE SODIUM 75 MCG TABLET PO (06:02)
[2022-05-03 06:28] LABS: Basophils Absolute Auto 0.1 K/mm3 (0.0-0.1); Basophils Percent Auto 0.3 % (0.2-1.2); Eosinophils Absolute Auto 0.1 K/mm3 (0-0.3); Eosinophils Percent Auto 0.5 % (0-4.4); Hematocrit 27.1 % (42.0-52.0); Hemoglobin 8.4 g/dL (14.0-18.0); Immature Granulocyte Absolute 0.09 K/mm3 (0.00-0.031); Immature Granulocyte Percent A 0.5 % (0-0.5); Lymphocytes Absolute Auto 1.79 K/mm3 (0.9-3.2); Lymphocytes Percent Auto 9.3 % (18.3-44.2); Mean Corpuscular Hemoglobin 26.9 pg (26-34); Mean Corpuscular Volume 86.9 fl (80-100); Mean Platelet Volume 9.7 fl (7.4-10.4); Monocytes Absolute Auto 0.8 K/mm3 (0.1-0.6); Monocytes Percent Auto 4.1 % (2.6-8.5); Neutrophils Absolute Auto 16.5 K/mm3 (1.3-6.7); Neutrophils Percent Auto 85.3 % (45.5-73.1); Platelet Count Result 136 k/mm3 (150-375); Red Blood Count 3.12 M/mm3 (4.6-6.20); Red Cell Distribution Width 15.5 % (11.5-14.5); White Blood Count 19.3 K/mm3 (4.5-10.0)
[2022-05-03 06:43] LABS: Anion Gap 7 mmol/L (8-16); Blood Urea Nitrogen 11 mg/dL (9-20); Calcium 8.4 mg/dL (8.4-10.2); Carbon Dioxide 31 mmol/L (22-30); Chloride 104 mmol/L (98-107); Estimated CRCL calculation 41 ml/min; Estimated Glomerular Filt Rate > 60; Glucose 54 mg/dL (65-110); Sodium 142 mmol/L (137-145)
[2022-05-03 07:04] LABS: Anisocytosis 1+ (NORMAL); Hypochromasia 1+ (NORMAL); Ovalocytes 1+ (NORMAL); Platelet Estimate Adequate (Adequate)
[2022-05-03] MEDS: DEXTROSE 50% 25 GM/50 ML SYRINGE IV PUSH ×2 (07:35→07:36)
[2022-05-03 07:53] LABS: Glucose Point of Care 38 mg/dl (65-105)
[2022-05-03 08:15] LABS: Glucose Point of Care 164 mg/dl (65-105)
[2022-05-03] MEDS: FERROUS SULFATE 324 MG TABLET PO ×3 (08:45→17:49)
[2022-05-03] MEDS: FLUDROCORTISONE ACETATE 0.1 MG TABLET PO (08:45)
[2022-05-03] MEDS: LIPASE/AMYLASE/PROTEASE 12,000 UNITS CAP 2 CAP PO ×3 (08:45→17:49)
[2022-05-03] MEDS: ZINC SULFATE 220 MG CAPSULE PO (08:45)
[2022-05-03] MEDS: FLUCONAZOLE 100 MG TABLET PO (08:45)
[2022-05-03] MEDS: PREGABALIN (*CRX) 75 MG CAPSULE PO ×3 (08:45→17:49)
[2022-05-03] MEDS: MAGNESIUM OXIDE 400 MG TABLET PO (08:45)
[2022-05-03] MEDS: FOLIC ACID 1 MG TABLET BY MOUTH (08:45)
[2022-05-03] MEDS: THIAMINE HCL 100 MG TABLET BY MOUTH (08:45)
[2022-05-03] MEDS: PANTOPRAZOLE 40 MG TABLET PO (08:45)
[2022-05-03] MEDS: TAMSULOSIN HCL 0.4 MG CAPSULE PO (08:45)
[2022-05-03] MEDS: MIDODRINE HCL 10 MG TABLET BY MOUTH ×3 (08:45→17:49)
[2022-05-03] MEDS: GABAPENTIN 100 MG CAPSULE 200 MG PO ×2 (08:45→17:49)
[2022-05-03] MEDS: DULoxetine HCL 20 MG CAPSULE.DR PO (08:45)
[2022-05-03] MEDS: ENOXAPARIN 40 MG/0.4 ML SYRINGE SUB-Q (08:46)
[2022-05-03] MEDS: POTASSIUM CHLORIDE 20 MEQ TABLET 40 MEQ PO (08:51)
[2022-05-03] MEDS: TOLNAFTATE 1% POWDER 45 GM BTL 1 APPLIC TOPICAL ×2 (08:54→20:19)
[2022-05-03] MEDS: SILVERGEL (ELTA) 45 ML 1 APPLIC TOPICAL (08:54)
[2022-05-03 08:57] LABS: Glucose Point of Care 126 mg/dl (65-105)
[2022-05-03 09:44] LABS: Glucose Point of Care 156 mg/dl (65-105)
[2022-05-03 10:49] LABS: Glucose Point of Care 204 mg/dl (65-105)
[2022-05-03 10:52] LABS: Appearance Urine Clear (Clear); Bilirubin Urine Negative (Negative); Blood Urine 2+ (Negative); Color Urine Yellow (Yellow); Glucose Urine UA Negative (Negative); Ketones Urine Negative (Negative); Leukocyte Esterase Ur 3+ LEU/UL (Negative); Nitrate Urine Negative (Negative); Protein Urine 1+ mg/dL (Negative); Urobilinogen Urine 0.2 mg/dL (<2.0)
--- NOTE | 2022-05-03 11:04 | WPDUROPN2 ---
Progress Note: A&P Assessment and Plan (1) Trauma of urethra: Code(s): S37.30XA - Unspecified injury of urethra, initial encounter Status: Acute Assessment and Plan: 57M chronically ill with very difficult loera due to scrotal abscess/fistula/urethral condition - loera now in appropriate position with clear yellow urine - f/u with dr levy in 4-6 weeks for exchange Tahira ST[facility] Subjective Subjective Date/Time Seen: 05/03/22 11:04 urine clear yellow wound cultures esbl e coli ID has him on ertapenem Review of Systems Review of Systems: ROS unobtainable: Yes other Exam Const: Other: cachectic Urinary Catheter: Urinary Catheter: urine clear Objective Data Vital Signs Vital Signs: Vital Signs - 24 hr 05/02/22 15:28 05/02/22 19:59 05/02/22 20:00 Temperature 35.3 C L 37.6 C H Pulse Rate 71 95 95 Respiratory Rate 12 19 19 Blood Pressure 96/53 L 110/64 Pulse Oximetry 94 93 93 Oxygen Delivery Room Air 05/03/22 04:44 05/03/22 08:45 Temperature 36.7 C Pulse Rate 84 Respiratory Rate 20 Blood Pressure 113/46 L Pulse Oximetry 94 Oxygen Delivery Room Air Intake/Output Intake/Output: Intake & Output 04/30/22 05/01/22 05/02/22 05/03/22 23:59 23:59 23:59 23:59 Intake Total 1730 1782 720 240 Output Total 400 1400 1550 950 Balance 1330 740 -857 -553 Meds/Results Medications: Active Medications Generic Name Dose Route Start Last Admin Trade Name Freq PRN Reason Stop Dose Admin Acetaminophen 1,000 mg 04/25/22 18:33 Acetaminophen 500 Mg Tablet PO Q6H PRN PAIN 1-3 Hydrocodone Bitart/Acetaminophen 1 tab 04/28/22 15:18 04/29/22 17:37 Hydrocodone/Acetaminophen (*Crx) 5-325 Mg Tablet PO 1 tab Q4H PRN Administration Pain Rated 4-6 Lipase/Protease/Amylase 2 cap 04/26/22 08:00 05/03/22 08:45 Lipase/Amylase/Protease 12,000 Units Cap PO 2 cap TIDWM CINDY Administration Dextrose 12.5 gm 05/03/22 08:46 Dextrose 50% 25 Gm/50 Ml Syringe IV PUSH PRN PRN Hypoglycemia Protocol Duloxetine HCl 20 mg 04/26/22 09:00 05/03/22 08:45 Duloxetine Hcl 20 Mg Capsule. PO 20 mg QAM CINDY Administration Enoxaparin Sodium 40 mg 04/26/22 09:00 05/03/22 08:46 Enoxaparin 40 Mg/0.4 Ml Syringe SUB-Q 40 mg DAILY CINDY Administration Fentanyl Citrate 25 mcg 04/29/22 12:44 Fentanyl Citrate Inj (*Crx) 100 Mcg/2 Ml Vial IV PUSH Q2M PRN Pain Ferrous Sulfate 324 mg 04/26/22 08:00 05/03/22 08:45 Ferrous Sulfate 324 Mg Tablet PO 324 mg TIDWM CINDY Administration Fluconazole 100 mg 04/30/22 09:00 05/03/22 08:45 Fluconazole 100 Mg Tablet PO 05/07/22 08:59 100 mg QAM CINDY Administration Fludrocortisone Acetate 0.1 mg 04/26/22 08:00 05/03/22 08:45 Fludrocortisone Acetate 0.1 Mg Tablet PO 0.1 mg DAILY@0800 CINDY Administration Folic Acid 1 mg 04/26/22 09:00 05/03/22 08:45 Folic Acid 1 Mg Tablet BY MOUTH 1 mg DAILY CINDY Administration Gabapentin 200 mg 04/26/22 09:00 05/03/22 08:45 Gabapentin 100 Mg Capsule PO 200 mg BID CINDY Administration Glucagon 1 mg 05/03/22 08:46 Glucagon For Inj 1 Mg Vial IM PRN PRN Hypoglycemia Protocol Glucose 15 gm 05/03/22 08:46 Glucose Oral Gel 15 Gm Of Glucse In 37.5 Gm Tube PO PRN PRN Hypoglycemia Protocol Ertapenem 1 gm in 50 mls @ 100 mls/hr 04/26/22 18:00 05/02/22 17:12 Invanz 1 Gm/Ns 50 Ml IVPB 100 mls/hr Q24H CINDY Administration Dextrose 1,000 mls @ 100 mls/hr 05/03/22 08:46 Dextrose 5% 1,000 Ml IVPB PRN PRN Hypoglycemia Protocol Insulin Aspart 2 - 5 units 05/03/22 12:00 Insulin Aspart (*Bkc) 100 Units/Ml SUB-Q TIDWM CINDY Protocol Levothyroxine Sodium 75 mcg 04/26/22 06:30 05/03/22 06:02 Levothyroxine Sodium 75 Mcg Tablet PO 75 mcg DAILY@0630 CINDY Administration Loperamide HCl 4 mg 04/27
[2022-05-03 11:05] LABS: Add Urine Microscopic? YES
[2022-05-03 11:11] LABS: Bacteria Urine Trace /hpf; Mucus Urine Rare /lpf; RBC Urine 21-50 /hpf (0-2); Squamous Epithelial Cell Urine Rare /hpf (Few); WBC Urine 31-50 /hpf
[2022-05-03 12:21] LABS: Glucose Point of Care 159 mg/dl (65-105)
--- NOTE | 2022-05-03 12:28 | WPDGIPROGNO ---
Progress Note: A&P Assessment and Plan (1) Chronic diarrhea: Code(s): K52.9 - Noninfective gastroenteritis and colitis, unspecified Status: Chronic Assessment and Plan: chronic and secondary from pancreatic insufficiency (confirmed by imaging and also abnormal pancreatic elastase in stool) continue with creon and imodium colonoscopy tomorrow to check for colitis, also get random colon bx. Also noted + FOBT also recent use of antibiotics which can exacerbate diarrhea (2) Pancreatic insufficiency: Code(s): K86.89 - Other specified diseases of pancreas Status: Chronic Assessment and Plan: on creon chronic (3) Bacteremia due to Klebsiella pneumoniae: Code(s): R78.81 - Bacteremia; B96.1 - Klebsiella pneumoniae [K. 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 insulin Status: Acute Assessment and Plan: on treatment (6) Occult blood in stools: Code(s): R19.5 - Other fecal abnormalities Status: Acute Subjective Date/time seen: 05/03/22 12:28 Interval history: no major changes, he says that less diarrhea Review of Systems Review of Systems: All systems reviewed & are unremarkable except as noted in HPI and below Exam Narrative: thin/cachectic Const: General: comfortable and no acute distress HENMT: General nose exam: Normal nares present Eyes: General: appearance normal, both eyes and all related structures Neck: Neck: no JVD Resp: Auscultation: clear to auscultation bilaterally Cardio: Rate: regular rate Rhythm: regular rhythm GI: Inspection: non-distended GI Palp: Yes Soft to palpation Auscultation: normal bowel sounds Urinary Catheter: Urinary Catheter: patent and draining Skin: General skin exam: normal color Neuro: Speech: normal speech Extrem: General: normal to inspection Psych: Mental Status: mental status grossly normal Objective Data Vital Signs Vital Signs: Vital Signs - 24 hr 05/02/22 15:28 05/02/22 19:59 05/02/22 20:00 Temperature 95.5 F L 99.7 F H Pulse Rate 71 95 95 Respiratory Rate 12 19 19 Blood Pressure 96/53 L 110/64 Pulse Oximetry 94 93 93 Oxygen Delivery Room Air 05/03/22 04:44 05/03/22 08:45 Temperature 98.1 F Pulse Rate 84 Respiratory Rate 20 Blood Pressure 113/46 L Pulse Oximetry 94 Oxygen Delivery Room Air Intake/Output Intake/Output: Intake & Output 04/30/22 05/01/22 05/02/22 05/03/22 23:59 23:59 23:59 23:59 Intake Total 1730 1782 720 240 Output Total 400 1400 1550 950 Balance 1330 790 -266 -986 Meds/Results Medications: Active Medications Generic Name Dose Route Start Last Admin Trade Name Freq PRN Reason Stop Dose Admin Acetaminophen 1,000 mg 04/25/22 18:33 Acetaminophen 500 Mg Tablet PO Q6H PRN PAIN 1-3 Hydrocodone Bitart/Acetaminophen 1 tab 04/28/22 15:18 04/29/22 17:37 Hydrocodone/Acetaminophen (*Crx) 5-325 Mg Tablet PO 1 tab Q4H PRN Administration Pain Rated 4-6 Lipase/Protease/Amylase 2 cap 04/26/22 08:00 05/03/22 08:45 Lipase/Amylase/Protease 12,000 Units Cap PO 2 cap TIDWM CINDY Administration Dextrose 12.5 gm 05/03/22 08:46 Dextrose 50% 25 Gm/50 Ml Syringe IV PUSH PRN PRN Hypoglycemia Protocol Duloxetine HCl 20 mg 04/26/22 09:00 05/03/22 08:45 Duloxetine Hcl 20 Mg Capsule.Dr PO 20 mg QAM CINDY Administration Enoxaparin Sodium 40 mg 04/26/22 09:00 05/03/22 08:46 Enoxaparin 40 Mg/0.4 Ml Syringe SUB-Q 40 mg DAILY CINDY Administration Fentanyl Citra
--- NOTE | 2022-05-03 12:32 | PM.IMPN ---
Progress Note: A&P Assessment and Plan (1) Sepsis: Code(s): A41.9 - Sepsis, unspecified organism Status: Acute Assessment and Plan: -Urethral and scrotal abscess with sepsis status post suprapubic catheter placement. Urology following -previously on pressors -Blood cx NGTD, urine cx with ramiro. Abscess cx growing ESBL E coli and ramiro -on Ertapenem D#6, started 7 day course of diflucan 04/29. Discussed with ID pharmacist, will treat with ertapenem through 05/13. PICC line placed 05/0205/03/2022 interval history: patient is 57-year-old male was recently discharged after being treated for E coli ESBL in blood culture with ertapenem for 8 days however patient returns emergency department neck states found to have urethral and scrotal abscess was seen by Urology had a cystoscopy and suprapubic catheter replaced, patient was started on ertapenem and Diflucan to yeast infection, however today patient white count significantly elevated will do the repeat blood and urine culture as well as chest x-ray, patient remains clinically stable he has no fever and no other complaints. (2) Abscess of scrotum: Code(s): N49.2 - Inflammatory disorders of scrotum Status: Acute Assessment and Plan: As above (3) UTI (urinary tract infection) due to urinary indwelling Ellison catheter: Code(s): T83.511A - Infection and inflammatory reaction due to indwelling urethral catheter, initial encounter; N39.0 - Urinary tract infection, site not specified Status: Acute Assessment and Plan: History of continued UTI as well as Klebsiella pneumoniae Of note: Blood cultures from earlier this month positive for ESBL, repeat cultures were negative, treated with ertapenem for 8 days after negative blood cultures. -managment as above (4) Anemia: Code(s): D64.9 - Anemia, unspecified Status: Acute Assessment and Plan: Patient Hb 04/27 was 6/1, today 04/29 7.3 decreased from 7.7 04/28. 05/01 hemoglobin 6.8, status post 1 unit transfusion. GI evaluated, planning for colonoscopy. (5) Acute kidney injury: Code(s): N17.9 - Acute kidney failure, unspecified Status: Acute Assessment and Plan: Baseline appears to be 0.9-1.1, 1.4 on admission, now resolved (6) Retention, urine: Code(s): R33.9 - Retention of urine, unspecified Status: Acute Assessment and Plan: Urology following, patient previously with suprapubic catheter. Now status post removal of suprapubic catheter, 04/30 cystoscopy with Ellison catheter placement (7) Insulin dependent type 2 diabetes mellitus: Code(s): E11.9 - Type 2 diabetes mellitus without complications; Z79.4 - group home (current) use of insulin Status: Acute Assessment and Plan: A1c 9.8% Given multiple hypoglycemic episodes, will decrease Lantus to 7 units nightly and removed schedule NovoLog. Maintain sliding scale insulin. (8) Hypotension: Code(s): I95.9 - Hypotension, unspecified Status: Acute Assessment and Plan: Patient on midodrine and fludrocortisone at baseline, appears to have chronic orthostatic hypotension, could have underlying POTS Consider outpatient cardiology workup -BP now stable (9) Chronic pancreatitis: Code(s): K86.1 - Other chronic pancreatitis Status: Acute Assessment and Plan: Long history of alcohol abuse with chronic pancreatitis, continue Creon -suspect this is etiology to chronic diarrhea, previously worked up by GI with no insidious etiology, rec inc loperamide to control. Dose maxed to 4 mg q6h -patient still having diarrhea. GI consult, recommend colonoscopy in future to assess for colitis (10) Alcohol dependence: Code(s): F10.20 - Alcohol dependence, uncomplicated Status: Acute Assessment and Plan: Continue thiamine, folic acid 04/27: no signs of w/d, doubt patient is still actively drinking due to [facility] residence, no need for CIWA at this
[2022-05-03 14:13] LABS: Glucose Point of Care 227 mg/dl (65-105)
[2022-05-03 16:00] VITALS: BP 114/73; PULSE 83; RESP 16; TEMP 35.9; O2SAT 96
[2022-05-03 17:38] LABS: Glucose Point of Care 177 mg/dl (65-105)
[2022-05-03] MEDS: BISACODYL 5 MG TABLET EC 20 MG PO (18:48)
[2022-05-03] MEDS: ERTAPENEM 1 GM/NS 50 ML 1 GM/50 ML BAG IVPB (18:49)
[2022-05-03] MEDS: PEG (High)/E-LYTE SOLN 4,000 ML BTL 4000 ML PO (18:52)
[2022-05-03] MEDS: CENTRAL LINE FLUSH 10 ML IV PUSH ×3 (20:17→20:18)
[2022-05-03 20:35] VITALS: BP 112/61; PULSE 85; RESP 18; TEMP 36.8; O2SAT 97
[2022-05-03 21:50] LABS: Glucose Point of Care 429 mg/dl (65-105)
[2022-05-03] MEDS: INSULIN ASPART (*BKC) 100 UNITS/ML 6 UNITS SUB-Q (22:04)
[2022-05-04] VITALS (7 sets, daily range): BP systolic 85–120; BP diastolic 55–76; PULSE 54–81; RESP 11–20; TEMP 36.1–36.6; O2SAT 95–98
[2022-05-04] MEDS: ALTEPLASE 2 MG VIAL (CATHFLO) IV PUSH ×2 (00:06→15:37)
[2022-05-04 00:10] LABS: Glucose Point of Care 91 mg/dl (65-105)
[2022-05-04 05:53] LABS: Basophils Absolute Auto 0.1 K/mm3 (0.0-0.1); Basophils Percent Auto 0.5 % (0.2-1.2); Eosinophils Absolute Auto 0.3 K/mm3 (0-0.3); Eosinophils Percent Auto 2.1 % (0-4.4); Hematocrit 24.4 % (42.0-52.0); Hemoglobin 7.6 g/dL (14.0-18.0); Immature Granulocyte Absolute 0.07 K/mm3 (0.00-0.031); Immature Granulocyte Percent A 0.5 % (0-0.5); Lymphocytes Absolute Auto 1.88 K/mm3 (0.9-3.2); Lymphocytes Percent Auto 13.5 % (18.3-44.2); Mean Corpuscular HGB Conc 31.1 g/dl (32-36); Mean Corpuscular Hemoglobin 27.5 pg (26-34); Mean Corpuscular Volume 88.4 fl (80-100); Monocytes Absolute Auto 0.9 K/mm3 (0.1-0.6); Monocytes Percent Auto 6.6 % (2.6-8.5); Neutrophils Absolute Auto 10.7 K/mm3 (1.3-6.7); Neutrophils Percent Auto 76.8 % (45.5-73.1); Platelet Count Result 110 k/mm3 (150-375); Red Blood Count 2.76 M/mm3 (4.6-6.20); Red Cell Distribution Width 15.4 % (11.5-14.5)
[2022-05-04] MEDS: LEVOTHYROXINE SODIUM 75 MCG TABLET PO (05:55)
[2022-05-04 06:07] LABS: Anion Gap 7 mmol/L (8-16); Blood Urea Nitrogen 12 mg/dL (9-20); Carbon Dioxide 33 mmol/L (22-30); Chloride 97 mmol/L (98-107); Estimated CRCL calculation 45 ml/min; Estimated Glomerular Filt Rate > 60; Glucose 161 mg/dL (65-110); Magnesium 1.4 mg/dL (1.6-2.3); Potassium 2.9 mmol/L (3.4-5.0); Sodium 137 mmol/L (137-145)
[2022-05-04 06:18] LABS: Glucose Point of Care 197 mg/dl (65-105)
[2022-05-04] MEDS: CENTRAL LINE FLUSH 10 ML IV PUSH ×4 (06:50→20:08)
[2022-05-04 08:41] LABS: Glucose Point of Care 196 mg/dl (65-105)
[2022-05-04] MEDS: POTASSIUM CHLORIDE INJ 40 MEQ in SODIUM CHLORIDE 0.9% IV 500 ML 130 MEQ IVPB (09:33)
--- NOTE | 2022-05-04 09:50 | PCOTNOTE ---
Attempted to see patient this am. Upon entering room patient was very drowsy and difficult to understand. Pt is scheduled for colonoscopy this date. Per RN patient going to have potassium and magnesium via IV and has been confused and hallucinating this am. Pt not seen for this reason.
[2022-05-04] MEDS: DULoxetine HCL 20 MG CAPSULE.DR PO (09:58)
[2022-05-04] MEDS: POTASSIUM CHLORIDE 20 MEQ TABLET 40 MEQ PO (09:59)
[2022-05-04] MEDS: PREGABALIN (*CRX) 75 MG CAPSULE PO ×3 (09:59→17:14)
[2022-05-04] MEDS: MIDODRINE HCL 10 MG TABLET BY MOUTH ×3 (09:59→17:11)
[2022-05-04] MEDS: SILVERGEL (ELTA) 45 ML 1 APPLIC TOPICAL (10:00)
[2022-05-04] MEDS: TOLNAFTATE 1% POWDER 45 GM BTL 1 APPLIC TOPICAL ×2 (10:03→20:07)
--- NOTE | 2022-05-04 10:44 | WPDANESEPPF ---
Anes - Initial Pre Proc Eval Procedure: Operation Date: 04/30/22 12:45 Proposed Procedures p Cystoscopy, with Attempted Catheter Placement - Al Rivera MD Operation Date: 05/04/22 14:15 Proposed Procedures p Colonoscopy - Shahbaz Spence MD Date/Time: 05/04/22 10:44 Surgeon: Donald Diaz DO Pre Op Diagnosis: Sepsis/Shock/Scrotal abscess Patient Data Age: 57 Gender: M Height: 1.78 m Weight: 44.4 kg Last Vital Signs Temp 36.8 C 05/03/22 20:35 Pulse 71 05/04/22 05:07 Resp 18 05/04/22 05:07 BP 98/57 L 05/04/22 05:07 Pulse Ox 96 05/04/22 05:07 O2 Del Method Room Air 05/04/22 08:00 O2 Flow Rate 8 04/30/22 13:40 Allergies Allergy/AdvReac Type Severity Reaction Status Date / Time amoxicillin Allergy Rash Verified 04/09/22 19:34 Penicillins Allergy Rash Verified 04/09/22 19:34 Home Medications Medication Instructions Recorded Confirmed Type tamsulosin 0.4 mg capsule 0.4 mg PO QAM #30 caps 09/15/21 04/25/22 Rx levothyroxine 75 mcg tablet 75 mcg PO DAILY 11/06/21 04/25/22 History (Euthyrox) cholecalciferol (vitamin D3) 25 1,000 units BYMOUTH DAILY #30 tabs 11/19/21 04/25/22 Rx mcg (1,000 unit) tablet (Vitamin D3) duloxetine 20 mg capsule,delayed 20 mg PO QAM #30 caps 11/19/21 04/25/22 Rx release (Cymbalta) fludrocortisone 0.1 mg tablet 0.1 mg PO DAILY@0800 #30 tabs 11/19/21 04/25/22 Rx folic acid 1 mg tablet 1 mg BYMOUTH DAILY #30 tabs 11/19/21 04/25/22 Rx loperamide 2 mg capsule 2 mg PO PRN PRN Diarrhea #10 caps 11/19/21 04/25/22 Rx thiamine HCl (vitamin B1) 100 mg 100 mg BYMOUTH QAM #30 tabs 11/19/21 04/25/22 Rx tablet (Vitamin B-1) zinc sulfate 50 mg zinc (220 mg) 220 mg PO QAM #30 caps 11/19/21 04/25/22 Rx capsule Daily Vitamin C Pack 500 mg PO Q12H 11/28/21 04/25/22 History Humalog U-100 Insulin See Rx Instructions .Route .COMPLEX 11/28/21 04/25/22 History ferrous sulfate 325 mg (65 mg 325 mg PO TIDWM 11/30/21 04/25/22 History iron) tablet midodrine 10 mg tablet 10 mg BYMOUTH TID 11/30/21 04/25/22 History hyafkb-hsthejxz-otpmzsj 2 cap PO TIDWM 30 days #180 caps 12/02/21 04/25/22 Rx 12,000-38,000-60,000 unit capsule,delayed rel (Creon) acetaminophen 500 mg tablet 1,000 mg PO Q6H PRN Mild to 04/09/22 04/25/22 History moderate pain ergocalciferol (vitamin D2) 1,250 1,250 mcg PO WEEKLY 04/09/22 04/25/22 History mcg (50,000 unit) capsule finasteride 1 mg tablet 1 mg PO DAILY 04/09/22 04/25/22 History gabapentin 100 mg capsule 200 mg PO BID 04/09/22 04/25/22 History pregabalin 75 mg capsule (Lyrica) 75 mg PO TID 04/09/22 04/25/22 History magnesium oxide 400 mg (241.3 mg 400 mg PO QAM 30 days #30 tabs 04/17/22 04/25/22 Rx magnesium) tablet sodium bicarbonate 650 mg tablet 650 mg PO BID 30 days #60 tabs 04/17/22 04/25/22 Rx insulin glargine 100 unit/mL 15 unit (0.15 mL) subcut HS #10 mL 04/24/22 04/25/22 Rx subcutaneous solution (Lantus U-100 Insulin) nicotine 21 mg/24 hr daily 1 patch transdermal QAM #28 ea 04/24/22 04/25/22 Rx transdermal patch (Nicoderm CQ) silver 200 mcg/gram topical gel 1 applic topical DAILY #30 grams 04/24/22 04/25/22 Rx (Silver-Sept) Laboratory Tests 05/03/22 05/03/22 05/03/22 10:36 10:37 12:14 WBC RBC Hgb Hct MCV MCH MCHC RDW Plt Count MPV Immature Gran % (Auto) Neut % (Auto) Lymph % (Auto) [place] % (Auto) Eos % (Auto) Baso % (Auto) Lymph # (Auto) [place] # (Auto) Eos # (Auto) Baso # (Auto) Abs Immat Gran (auto) Absolute Neuts (auto) Absolute Nucleated RBC Nucleated RBC % Sodium Potassium Chloride Carbon Dioxide Anion Gap B
[2022-05-04] MEDS: LACTATED RINGERS 1,000 ML 150 ML IV CONT (11:15)
[2022-05-04 11:17] LABS: Glucose Point of Care 136 mg/dl (65-105)
[2022-05-04] MEDS: NICOTINE (*PBKC) 21 MG PATCH 1 PATCH TRANSDERM (12:38)
[2022-05-04] MEDS: MAGNESIUM OXIDE 400 MG TABLET PO (12:38)
[2022-05-04] MEDS: FLUCONAZOLE 100 MG TABLET PO (12:38)
[2022-05-04] MEDS: GABAPENTIN 100 MG CAPSULE 200 MG PO ×2 (12:38→17:11)
[2022-05-04] MEDS: FOLIC ACID 1 MG TABLET BY MOUTH (12:38)
[2022-05-04] MEDS: ZINC SULFATE 220 MG CAPSULE PO (12:39)
[2022-05-04] MEDS: PANTOPRAZOLE 40 MG TABLET PO (12:39)
[2022-05-04] MEDS: TAMSULOSIN HCL 0.4 MG CAPSULE PO (12:39)
[2022-05-04] MEDS: FERROUS SULFATE 324 MG TABLET PO ×2 (12:39→17:11)
[2022-05-04] MEDS: THIAMINE HCL 100 MG TABLET BY MOUTH (12:39)
[2022-05-04] MEDS: LIPASE/AMYLASE/PROTEASE 12,000 UNITS CAP 2 CAP PO ×2 (12:40→17:11)
[2022-05-04] MEDS: MAGNESIUM SULF 2 GM/WATER 50ML 2 GM/50 ML BAG IVPB (12:42)
[2022-05-04 15:47] LABS: Albumin Level 2.7 g/dL (3.5-5.1); Anion Gap 2 mmol/L (8-16); Blood Urea Nitrogen 10 mg/dL (9-20); Calcium 7.5 mg/dL (8.4-10.2); Carbon Dioxide 32 mmol/L (22-30); Chloride 99 mmol/L (98-107); Estimated CRCL calculation 45 ml/min; Estimated Glomerular Filt Rate > 60; Glucose 252 mg/dL (65-110); Phosphorus 2.9 mg/dL (2.5-4.5); Potassium 3.8 mmol/L (3.4-5.0); Sodium 133 mmol/L (137-145)
[2022-05-04 15:48] LABS: Glucose Point of Care 282 mg/dl (65-105)
--- NOTE | 2022-05-04 16:27 | PM.IMPN ---
Progress Note: A&P Assessment and Plan (1) Sepsis: Code(s): A41.9 - Sepsis, unspecified organism Status: Acute Assessment and Plan: -Urethral and scrotal abscess with sepsis status post suprapubic catheter placement. Urology following -previously on pressors -Blood cx NGTD, urine cx with ramiro. Abscess cx growing ESBL E coli and ramiro -on Ertapenem D#6, started 7 day course of diflucan 04/29. Discussed with ID pharmacist, will treat with ertapenem through 05/13. PICC line placed 05/0205/03/2022 interval history: patient is 57-year-old male was recently discharged after being treated for E coli ESBL in blood culture with ertapenem for 8 days however patient returns emergency department neck states found to have urethral and scrotal abscess was seen by Urology had a cystoscopy and suprapubic catheter replaced, patient was started on ertapenem and Diflucan to yeast infection, however today patient white count significantly elevated will do the repeat blood and urine culture as well as chest x-ray, patient remains clinically stable he has no fever and no other complaints. 05/04/2022 interval history: patient is 57-year-old male was recently discharged after being treated for E coli ESBL in blood culture with ertapenem for 8 days however patient returns emergency department states found to have urethral and scrotal abscess was seen by Urology had a cystoscopy and suprapubic catheter replaced, scrotal abscess is E coli ESBL multi drug resistent, patient was started on ertapenem and Diflucan to yeast infection, however on 05/03 patient white count significantly elevated ordered repeat blood and urine culture as well as chest x-ray, patient with chronic diarrhea and concerning for bleeding is scheduled to have a colonoscopy to have today, patient remains clinically stable he has no fever and no other complaints. (2) Abscess of scrotum: Code(s): N49.2 - Inflammatory disorders of scrotum Status: Acute Assessment and Plan: As above (3) UTI (urinary tract infection) due to urinary indwelling Ellison catheter: Code(s): T83.511A - Infection and inflammatory reaction due to indwelling urethral catheter, initial encounter; N39.0 - Urinary tract infection, site not specified Status: Acute Assessment and Plan: History of continued UTI as well as Klebsiella pneumoniae Of note: Blood cultures from earlier this month positive for ESBL, repeat cultures were negative, treated with ertapenem for 8 days after negative blood cultures. -managment as above (4) Anemia: Code(s): D64.9 - Anemia, unspecified Status: Acute Assessment and Plan: Patient Hb 04/27 was 6/1, today 04/29 7.3 decreased from 7.7 04/28. 05/01 hemoglobin 6.8, status post 1 unit transfusion. GI evaluated, planning for colonoscopy. (5) Acute kidney injury: Code(s): N17.9 - Acute kidney failure, unspecified Status: Acute Assessment and Plan: Baseline appears to be 0.9-1.1, 1.4 on admission, now resolved (6) Retention, urine: Code(s): R33.9 - Retention of urine, unspecified Status: Acute Assessment and Plan: Urology following, patient previously with suprapubic catheter. Now status post removal of suprapubic catheter, 04/30 cystoscopy with Ellison catheter placement (7) Insulin dependent type 2 diabetes mellitus: Code(s): E11.9 - Type 2 diabetes mellitus without complications; Z79.4 - half-way (current) use of insulin Status: Acute Assessment and Plan: A1c 9.8% Given multiple hypoglycemic episodes, will decrease Lantus to 7 units nightly and removed schedule NovoLog. Maintain sliding scale insulin. (8) Hypotension: Code(s): I95.9 - Hypotension, unspecified Status: Acute Assessment and Plan: Patient on midodrine and fludrocortisone at baseline, appears to have chronic orthostatic hypotension, could have underlying POTS Consider outpatient cardiology
[2022-05-04] MEDS: LOPERAMIDE HCL 2 MG CAPSULE 4 MG PO ×2 (17:12→23:19)
[2022-05-04] MEDS: INSULIN ASPART (*BKC) 100 UNITS/ML SUB-Q (17:14)
[2022-05-04] MEDS: ERTAPENEM 1 GM/NS 50 ML 1 GM/50 ML BAG IVPB (17:48)
--- NOTE | 2022-05-04 18:05 | PC.NURSE ---
Pt needs constant reminders that he is in the hospital and that he cannot go out to smoke or get his xbox. Family at bedside at this time and pt is in much better spirits. Cath flow given times one today with cap change and purple line now has blood return. No complaints of pain and this time and bowel movements decreased this shift.
[2022-05-04 20:35] LABS: Glucose Point of Care 303 mg/dl (65-105)
[2022-05-04 23:31] LABS: Glucose Point of Care 426 mg/dl (65-105)
[2022-05-05] MEDS: INSULIN ASPART (*BKC) 100 UNITS/ML SUB-Q ×4 (00:15→17:39)
[2022-05-05 02:04] LABS: Glucose Point of Care 314 mg/dl (65-105)
[2022-05-05 05:06] LABS: Basophils Percent Auto 0.5 % (0.2-1.2); Eosinophils Absolute Auto 0.3 K/mm3 (0-0.3); Eosinophils Percent Auto 3.7 % (0-4.4); Hematocrit 25.8 % (42.0-52.0); Hemoglobin 7.9 g/dL (14.0-18.0); Immature Granulocyte Absolute 0.06 K/mm3 (0.00-0.031); Immature Granulocyte Percent A 0.7 % (0-0.5); Lymphocytes Absolute Auto 1.87 K/mm3 (0.9-3.2); Lymphocytes Percent Auto 21.8 % (18.3-44.2); Mean Corpuscular HGB Conc 30.6 g/dl (32-36); Mean Corpuscular Hemoglobin 27.1 pg (26-34); Mean Corpuscular Volume 88.4 fl (80-100); Mean Platelet Volume 9.3 fl (7.4-10.4); Monocytes Absolute Auto 0.5 K/mm3 (0.1-0.6); Monocytes Percent Auto 6.3 % (2.6-8.5); Neutrophils Absolute Auto 5.8 K/mm3 (1.3-6.7); Platelet Count Result 115 k/mm3 (150-375); Red Blood Count 2.92 M/mm3 (4.6-6.20); Red Cell Distribution Width 15.3 % (11.5-14.5); White Blood Count 8.6 K/mm3 (4.5-10.0)
[2022-05-05 05:31] LABS: Anion Gap 4 mmol/L (8-16); Blood Urea Nitrogen 10 mg/dL (9-20); Carbon Dioxide 29 mmol/L (22-30); Chloride 99 mmol/L (98-107); Estimated CRCL calculation 35 ml/min; Estimated Glomerular Filt Rate 57; Glucose 360 mg/dL (65-110); Magnesium 1.9 mg/dL (1.6-2.3); Sodium 132 mmol/L (137-145)
[2022-05-05] MEDS: LEVOTHYROXINE SODIUM 75 MCG TABLET PO (05:37)
[2022-05-05] MEDS: CENTRAL LINE FLUSH 10 ML IV PUSH ×3 (05:37→17:42)
[2022-05-05] MEDS: LOPERAMIDE HCL 2 MG CAPSULE 4 MG PO ×3 (05:37→17:41)
[2022-05-05 06:00] VITALS: BP 125/65; PULSE 54; RESP 16; TEMP 36.7; O2SAT 98
[2022-05-05 07:38] LABS: Glucose Point of Care 198 mg/dl (65-105)
[2022-05-05] MEDS: FERROUS SULFATE 324 MG TABLET PO ×3 (09:47→17:41)
[2022-05-05] MEDS: ZINC SULFATE 220 MG CAPSULE PO (09:47)
[2022-05-05] MEDS: GABAPENTIN 100 MG CAPSULE 200 MG PO ×2 (09:47→17:40)
[2022-05-05] MEDS: LIPASE/AMYLASE/PROTEASE 12,000 UNITS CAP 2 CAP PO ×3 (09:47→17:40)
[2022-05-05] MEDS: ENOXAPARIN 40 MG/0.4 ML SYRINGE SUB-Q (09:47)
[2022-05-05] MEDS: MIDODRINE HCL 10 MG TABLET BY MOUTH ×3 (09:47→17:40)
[2022-05-05] MEDS: NICOTINE (*PBKC) 21 MG PATCH 1 PATCH TRANSDERM (09:48)
[2022-05-05] MEDS: THIAMINE HCL 100 MG TABLET BY MOUTH (09:48)
[2022-05-05] MEDS: DULoxetine HCL 20 MG CAPSULE.DR PO (09:48)
[2022-05-05] MEDS: TAMSULOSIN HCL 0.4 MG CAPSULE PO (09:48)
[2022-05-05] MEDS: PANTOPRAZOLE 40 MG TABLET PO (09:48)
[2022-05-05] MEDS: FOLIC ACID 1 MG TABLET BY MOUTH (09:48)
[2022-05-05] MEDS: FLUCONAZOLE 100 MG TABLET PO (09:48)
[2022-05-05] MEDS: MAGNESIUM OXIDE 400 MG TABLET PO (09:48)
[2022-05-05] MEDS: SILVERGEL (ELTA) 45 ML 1 APPLIC TOPICAL (09:49)
[2022-05-05] MEDS: FLUDROCORTISONE ACETATE 0.1 MG TABLET PO (09:49)
[2022-05-05] MEDS: PREGABALIN (*CRX) 75 MG CAPSULE PO ×3 (09:50→17:43)
[2022-05-05] MEDS: TOLNAFTATE 1% POWDER 45 GM BTL 1 APPLIC TOPICAL (09:50)
--- NOTE | 2022-05-05 10:44 | PCNFU ---
Nutrition Follow-Up Complete: Severe protein calorie malnutrition related to increased needs from wounds, previous poor intakes, as evidenced by wound photos, patient reports of weight loss, and BMI 14.6 Goal: Meal intake >75%,Tolerate supplements Patient is meeting current nutrition goals. Pt current nutrition is Low fiber/DBCC. Last recorded weight is 44.7 kg, down from 46 kg Bowel Motility: +Bm reported 05/04 Labs Reviewed:Glu 360, GFR 57, Na 132,Hct 25.8,Hgb 7.9 Meds Noted:Pepcid, folic acid, NovoLog, Lantus, Synthroid, vancomycin, Diflucan Skin:Stage II pressure ulcer-coccyx and ankle Additional Notes: Patient sleeping at time of assessment. Spoke with nursing, oral intake has been good, 100% documented post colonoscopy. Patient remains on diet supplements of Glucerna shakes BID for additional 220 kcals and 10 gms protein as well as Sincere BID for wound healing providing an additional 90 kcals and 2.5 gms protein. Agree with diet orders. Monitoring weight, intake, skin, labs, discharge planning. Follow up in 7 days.
[2022-05-05 11:32] LABS: Glucose Point of Care 224 mg/dl (65-105)
--- NOTE | 2022-05-05 12:46 | WPDANLDPN2 ---
Anes-Prog Note L&D Date/Time: 05/05/22 12:46 Neuro status: Neuro function grossly intact. Cardiovascular status: normal Respiratory status: normal Airway patency: baseline Mental status: baseline Post-Op hydration status: normal Vital Signs: Last Vital Signs Temp 36.7 C 05/05/22 06:00 Pulse 54 L 05/05/22 06:00 Resp 16 05/05/22 06:00 BP 125/65 05/05/22 06:00 Pulse Ox 98 05/05/22 06:00 O2 Del Method Room Air 05/04/22 11:52 O2 Flow Rate 8 04/30/22 13:40 Pain score (VAS): 0 I/O: Intake & Output 05/04/22 05/05/22 05/05/22 23:59 07:59 15:59 Intake Total 800 579 Output Total 925 1300 Balance -125 -1300 579 Post-procedural complaints: none Patient feedback: Patient satisfied with anesthetic care.
--- NOTE | 2022-05-05 13:00 | PM.DS ---
DS: Admitting Diagnosis Discharge Date 04/25/2022 Admitting Diagnosis weakness DS: Discharge Diagnosis Discharge Diagnosis (1) Sepsis: Code(s): A41.9 - Sepsis, unspecified organism Status: Acute Assessment and Plan: -Urethral and scrotal abscess with sepsis status post suprapubic catheter placement. Urology following -previously on pressors -Blood cx NGTD, urine cx with ramiro. Abscess cx growing ESBL E coli and ramiro -on Ertapenem D#6, started 7 day course of diflucan 04/29. Discussed with ID pharmacist, will treat with ertapenem through 05/13. PICC line placed 05/0205/03/2022 interval history: patient is 57-year-old male was recently discharged after being treated for E coli ESBL in blood culture with ertapenem for 8 days however patient returns emergency department neck states found to have urethral and scrotal abscess was seen by Urology had a cystoscopy and suprapubic catheter replaced, patient was started on ertapenem and Diflucan to yeast infection, however today patient white count significantly elevated will do the repeat blood and urine culture as well as chest x-ray, patient remains clinically stable he has no fever and no other complaints. 05/04/2022 interval history: patient is 57-year-old male was recently discharged after being treated for E coli ESBL in blood culture with ertapenem for 8 days however patient returns emergency department states found to have urethral and scrotal abscess was seen by Urology had a cystoscopy and suprapubic catheter replaced, scrotal abscess is E coli ESBL multi drug resistent, patient was started on ertapenem and Diflucan to yeast infection, however on 05/03 patient white count significantly elevated ordered repeat blood and urine culture as well as chest x-ray, patient with chronic diarrhea and concerning for bleeding is scheduled to have a colonoscopy to have today, patient remains clinically stable he has no fever and no other complaints. (2) Abscess of scrotum: Code(s): N49.2 - Inflammatory disorders of scrotum Status: Acute Assessment and Plan: As above (3) UTI (urinary tract infection) due to urinary indwelling Ellison catheter: Code(s): T83.511A - Infection and inflammatory reaction due to indwelling urethral catheter, initial encounter; N39.0 - Urinary tract infection, site not specified Status: Acute Assessment and Plan: History of continued UTI as well as Klebsiella pneumoniae Of note: Blood cultures from earlier this month positive for ESBL, repeat cultures were negative, treated with ertapenem for 8 days after negative blood cultures. -managment as above (4) Anemia: Code(s): D64.9 - Anemia, unspecified Status: Acute Assessment and Plan: Patient Hb 04/27 was 6/1, today 04/29 7.3 decreased from 7.7 /. 05/01 hemoglobin 6.8, status post 1 unit transfusion. GI evaluated, planning for colonoscopy. (5) Acute kidney injury: Code(s): N17.9 - Acute kidney failure, unspecified Status: Acute Assessment and Plan: Baseline appears to be 0.9-1.1, 1.4 on admission, now resolved (6) Retention, urine: Code(s): R33.9 - Retention of urine, unspecified Status: Acute Assessment and Plan: Urology following, patient previously with suprapubic catheter. Now status post removal of suprapubic catheter, 04/30 cystoscopy with Ellison catheter placement (7) Insulin dependent type 2 diabetes mellitus: Code(s): E11.9 - Type 2 diabetes mellitus without complications; Z79.4 - correction (current) use of insulin Status: Acute Assessment and Plan: A1c 9.8% Given multiple hypoglycemic episodes, will decrease Lantus to 7 units nightly and removed schedule NovoLog. Maintain sliding scale insulin. (8) Hypotension: Code(s): I95.9 - Hypotension, unspecified Status: Acute Assessment and Plan: Patient on midodrine and fludrocortisone at baseline, appears to have
[2022-05-05 14:00] VITALS: BP 117/72; PULSE 57; RESP 18; TEMP 36.4; O2SAT 99
[2022-05-05 14:19] LABS: EDCOVIDSCREEN Negative (Negative)
[2022-05-05 17:15] LABS: Glucose Point of Care 353 mg/dl (65-105)
[2022-05-05] MEDS: ERTAPENEM 1 GM/NS 50 ML 1 GM/50 ML BAG IVPB (17:39)
--- NOTE | 2022-05-05 18:16 | PC.NURSE ---
discharge wound photos were taken prior to discharge this evening
== END 2022-05-05 18:45 | DRG 466 ==
LOC: ANHED 15:12 → ANHICU 15:47 → ANHIMU 04-26 11:48 → ANH3MED 04-27 17:45 → ANHIMU 04-27 17:58 → ANH3MED 04-27 18:35
PROVIDERS: Internal Medicine; Internal Medicine Gastroenterology; Nurse Practitioner; Student in an Organized Health Care Education/Training Program; Urology; Admitting Provider Internal Medicine; Emergency Provider Emergency Medicine; PCP Internal Medicine; Visit Provider Family Medicine
PROC: 0T7D8ZZ Dilation of Urethra, Via Natural or Artificial Opening Endoscopic (ICD-10-PCS; CPT 52281; principal; 2022-04-30 12:45)
PROC: 0DJD8ZZ Inspection of Lower Intestinal Tract, Via Natural or Artificial Opening Endoscopic (ICD-10-PCS; CPT 45378; principal; 2022-05-04 14:15)
DX: T83.511A Infection and inflammatory reaction due to indwelling urethral catheter, initial encounter (principal); A41.9 Sepsis, unspecified organism; N17.9 Acute kidney failure, unspecified; I95.9 Hypotension, unspecified; E46 Unspecified protein-calorie malnutrition; E11.42 Type 2 diabetes mellitus with diabetic polyneuropathy; K86.1 Other chronic pancreatitis; B96.20 Unspecified Escherichia coli [E. coli] as the cause of diseases classified elsewhere; Z16.12 Extended spectrum beta lactamase (ESBL) resistance; B37.49 Other urogenital candidiasis; N49.2 Inflammatory disorders of scrotum; D64.9 Anemia, unspecified; Z20.822 Contact with and (suspected) exposure to COVID-19; R33.8 Other retention of urine; F10.20 Alcohol dependence, uncomplicated; I95.1 Orthostatic hypotension; N40.0 Benign prostatic hyperplasia without lower urinary tract symptoms; R29.898 Other symptoms and signs involving the musculoskeletal system; E03.9 Hypothyroidism, unspecified; M85.80 Other specified disorders of bone density and structure, unspecified site; F17.210 Nicotine dependence, cigarettes, uncomplicated; R01.1 Cardiac murmur, unspecified; Z68.1 Body mass index [BMI] 19.9 or less, adult; Z86.711 Personal history of pulmonary embolism; Z79.4 Long term (current) use of insulin
CPT/HCPCS: 36415; 36430; 36569; 36600; 71045; 71046; 72193; 75989; 80048; 80053; 80069; 80202; 81001; 82274; 82550; 82728; 82805; 82948; 83036; 83605; 83735; 84100; 84425; 84443; 85025; 85055; 85610; 85730; 86140; 86850; 86900; 86901; 86920; 87040; 87070; 87077; 87086; 87088; 87106; 87186; 87205; 87426; 88305; 93005; 93306; 96361; 96365; 96367; 96375; 97161; 97165; 97535; 99199; 99285; A9270; C1729; C1751; C1769; C9113; C9803; J1335; J1650; J1815; J2250; J2704; J2997; J3010; J3370; J3475; J3480; J7040; J7070; J7120; P9016; P9047; Q9967; U0003; U0005

== ENCOUNTER 2022-05-08 02:59 | Inpatient (IN) | payer OTHER, SELFPAY ==
[2022-05-08] VITALS (39 sets, daily range): BP systolic 111–148; BP diastolic 56–96; PULSE 53–96; RESP 10–23; TEMP 36.4–36.7; O2SAT 80–99; BMI 14.8
--- NOTE | ~2022-05-08 | CT_ITS ---
EXAMINATION: CT brain wo con DATE: 05/08/2022 04:21 INDICATION: Altered mental status. TECHNIQUE: Computed tomography (CT) of the head was performed without intravenous contrast. The mA wa s adjusted according to patient size. Iterative reconstruction technique was employed. The dose-lengt h product was 681.00 mGy-cm. COMPARISON: Head CT 02/24/2022 FINDINGS: There is no intracranial hemorrhage, acute infarction, or abnormal intracranial mass lesion . The ventricles are normal in size. The orbits are normal. There is mild mucosal thickening in the p aranasal sinuses. The mastoid air cells are normal. IMPRESSION: 1. Normal brain. Reviewed, dictated and finalized at location A. IMPRESSION: 1. Normal brain.
--- NOTE | ~2022-05-08 | CT_ITS ---
EXAMINATION: CT cervical spine wo con DATE: 05/08/2022 04:22 INDICATION: Altered mental status. TECHNIQUE: Computed tomography (CT) of the cervical spine was performed without intravenous contrast. Automated exposure control and iterative reconstruction technique were employed. The dose-length pro duct was 116.64 mGy-cm. COMPARISON: CT cervical spine 11/25/2021 FINDINGS: There is 10 degrees levoscoliosis of cervical spine. Vertebral body heights are normal. The re is mildly decreased disc height at C3-C4 and C6-C7 and moderately decreased disc height at C5-C6. The following disc levels are specifically discussed: C2-C3: There is mild bilateral uncovertebral joint osteoarthritis. There is mild right facet joint os teoarthritis. There is no neural foraminal stenosis. There is no central canal stenosis. C3-C4: There is mild bilateral uncovertebral joint osteoarthritis. There is mild bilateral facet join t osteoarthritis. There is no neural foraminal stenosis. There is no central canal stenosis. C4-C5: There is mild bilateral uncovertebral joint osteoarthritis. There is no facet joint osteoarthr itis. There is no neural foraminal stenosis. There is no central canal stenosis. C5-C6: There is moderate bilateral uncovertebral joint osteoarthritis. There is moderate right and mi ld left facet joint osteoarthritis. There is mild bilateral neural foraminal stenosis. There is mild central canal stenosis. C6-C7: There is mild left uncovertebral joint osteoarthritis. There is mild left facet joint osteoart hritis. There is no neural foraminal stenosis. There is no central canal stenosis. C7-T1: There is no uncovertebral joint osteoarthritis. There is mild bilateral facet joint osteoarthr itis. There is no neural foraminal stenosis. There is no central canal stenosis. IMPRESSION: 1. No fracture. 2. Moderate cervical spondylosis. Reviewed, dictated and finalized at location A.
--- NOTE | ~2022-05-08 | US_ITS ---
EXAMINATION: US carotid duplex BI DATE: 05/10/2022 08:24 INDICATION: Carotid bruit. TECHNIQUE: Grayscale, color Doppler, and pulsed Doppler images of the cervical carotid arteries were obtained. The degree of vessel stenosis is placed in one of the following categories: normal, <50%, 5 0-69%, >=70% but less than near-occlusion, near-occlusion, or total occlusion. Note that percent sten osis relative to normal distal artery lumen diameter is indirectly measured from velocity measurement s as described by Wilton, et al. Radiology 2003; 229:340-346. COMPARISON: Ultrasound 06/14/2018 FINDINGS: RIGHT: The right common carotid artery (CCA) peak systolic velocity (PSV) is 88 cm/s. The right internal car otid artery (ICA) PSV is 80 cm/s. The right ICA end-diastolic velocity (EDV) is 13 cm/s. The right IC A/CCA PSV ratio is 0.9. Grayscale and color Doppler images yield an estimate of <50% diameter reducti on from plaque in the ICA. There is antegrade flow in the right vertebral artery. LEFT: The left CCA PSV is 82 cm/s. The left ICA PSV is 89 cm/s. The left ICA EDV is 23 cm/s. The left ICA/C CA PSV ratio is 1.1. Grayscale and color Doppler images yield an estimate of <50% diameter reduction from plaque in the ICA. There is antegrade flow in the left vertebral artery. IMPRESSION: 1. <50% stenosis in the right internal carotid artery. 2. <50% stenosis in the left internal carotid artery. Reviewed, dictated and finalized at location A.
--- NOTE | ~2022-05-08 | CT_ITS ---
EXAMINATION: CT chest abdomen pelvis w con DATE: 05/08/2022 04:22 INDICATION: Cardiopulmonary failure. TECHNIQUE: Computed tomography (CT) of the chest, abdomen, and pelvis was performed with 100 mL Omnip aque 350 intravenous contrast. Automated exposure control and iterative reconstruction technique were employed. The dose-length product was 371.69 mGy-cm. COMPARISON: CT pelvis 04/25/2022 FINDINGS: CHEST CT: There is moderate emphysema. There are airspace and groundglass opacities and nodules involving the l ower lobes, right middle lobe, and lingula, consistent with pneumonia. There are small pleural effusi ons. The heart size is normal. There is a small pericardial effusion. A right upper extremity periphe rally inserted central venous catheter (PICC) is seen with tip in right brachiocephalic vein. There a re multiple healing anterior rib fractures bilaterally. There are chronic compression fractures of T8 , T9, and T12. ABDOMEN/PELVIS CT: There are cysts in the liver measuring up to 9 mm. The gallbladder and spleen are normal. The pancrea tic duct is dilated. There are calcifications and hypodensity in the pancreas, consistent with chroni c pancreatitis. The adrenal glands are normal. There is a 2.8 cm cyst in right kidney. There is uroth elial thickening in the left renal pelvis with adjacent fat stranding. There is hypodensity in left k idney. These findings are consistent with pyelonephritis. There is diffuse bladder wall thickening, c onsistent with cystitis. The bladder is decompressed by a Ellison catheter. Partially visualized is a r im-enhancing collection of fluid and gas involving the bulbar urethra extending into the scrotum nita uring at least 3.2 x 1.6 x 2.0 cm, consistent with abscess. There is wall thickening of the colon, wo rst in the ascending colon, consistent with colitis. Splenic vein is small. Gastric varices are noted . There is mild left para-aortic lymphadenopathy, likely reactive. There is a small volume of ascites . There is mild lumbar spondylosis. IMPRESSION: 1. Pneumonia involving the lower lobes, right middle lobe, and lingula. 2. Moderate emphysema. 3. Left-sided pyelonephritis. Cystitis. 4. Partially visualized abscess involving the bulbar urethra and scrotum again seen. 5. Colitis. 6. Chronic pancreatitis. 7. Mild left para-aortic lymphadenopathy, likely reactive. 8. Small volume of ascites. 9. Small pleural effusions. 10. Stable small pericardial effusion. Reviewed, dictated and finalized at location A.
--- NOTE | 2022-05-08 03:03 | ECG_ITS ---
Measurements Intervals Lehr Rate: 85 P: 87 DC: 157 QRS: 85 QRSD: 106 T: 74 QT: 298 QTc: 356 Interpretive Statements SINUS RHYTHM DELAYED PRECORDIAL R/S TRANSITION LOW QRS VOLTAGE IN LIMB LEADS BASELINE ARTIFACT- I, III, AVL, AVF, V1-V6 BORDERLINE ECG COMPARED TO ECG 04/25/2022 11:01:05 NO SIGNIFICANT CHANGES Electronically Signed On 05-08-2022 6:55:09 CDT by Albert Bansal D.O.
[2022-05-08 03:05] LABS: Glucose Point of Care 53 mg/dl (65-105)
[2022-05-08 03:09] LABS: Alveolar/Arterial O2 Gradient 20.1 mmHg; Base Excess ABG 5.3 mEq/l (+/-2.0); Carboxyhemoglobin 0.3 % THb (0-2.0); Fractional Inspired Oxygen 21 %; HCO3 ABG 29.5 mEq/l (22.0-26.0); Methemoglobin ABG 0.3 %THb (0-1.5); Oxygen Content ABG 11.5 %vol (16.0-22.0); Oxygen Saturation ABG 96.2 % (95.0-100.0); PCO2 ABG 42.3 mmHg (35.0-45.0); PO2 FiO2 Ratio Arterial Blood 3.76 %; Reduced Hemoglobin 5.4 %THb (0-5.0); Total Hemoglobin 8.6 g/dL (12.0-18.0); pH ABG 7.462 (7.350-7.450)
[2022-05-08 03:11] LABS: Device ROOM AIR; Modified Allen's Test Unable to perform; Site Drawn RIGHT RADIAL
[2022-05-08] MEDS: DEXTROSE 50% 25 GM/50 ML SYRINGE IV PUSH (03:15)
[2022-05-08 03:24] LABS: Basophils Absolute Auto 0.1 K/mm3 (0.0-0.1); Basophils Percent Auto 0.6 % (0.2-1.2); Eosinophils Absolute Auto 0.3 K/mm3 (0-0.3); Eosinophils Percent Auto 2.5 % (0-4.4); Hematocrit 25.3 % (42.0-52.0); Hemoglobin 7.9 g/dL (14.0-18.0); Immature Granulocyte Absolute 0.23 K/mm3 (0.00-0.031); Immature Granulocyte Percent A 2.1 % (0-0.5); Lymphocytes Percent Auto 15.5 % (18.3-44.2); Mean Corpuscular HGB Conc 31.2 g/dl (32-36); Mean Corpuscular Hemoglobin 27.3 pg (26-34); Mean Corpuscular Volume 87.5 fl (80-100); Mean Platelet Volume 9.6 fl (7.4-10.4); Monocytes Absolute Auto 0.7 K/mm3 (0.1-0.6); Monocytes Percent Auto 6.2 % (2.6-8.5); Neutrophils Percent Auto 73.1 % (45.5-73.1); Platelet Count Result 123 k/mm3 (150-375); Red Blood Count 2.89 M/mm3 (4.6-6.20)
[2022-05-08 03:26] LABS: Appearance Urine Slightly Cloudy (Clear); Bilirubin Urine Negative (Negative); Blood Urine 2+ (Negative); Glucose Urine UA 1+ mg/dL (Negative); Ketones Urine Negative (Negative); Leukocyte Esterase Ur 2+ LEU/UL (Negative); Nitrate Urine Negative (Negative); Protein Urine 1+ mg/dL (Negative); Urobilinogen Urine 0.2 mg/dL (<2.0); pH Urine 5.5 (5.0-9.0)
[2022-05-08 03:33] LABS: Glucose Point of Care 237 mg/dl (65-105)
[2022-05-08 03:34] LABS: Add Urine Microscopic? YES; Color Urine Light Yellow (Yellow)
[2022-05-08 03:35] LABS: Lactic Acid Reflex 1.1 mmol/L (0.7-2.0)
[2022-05-08 03:37] LABS: INR 1.2; Prothrombin Time 14.6 Seconds (11.1-14.7)
[2022-05-08 03:38] LABS: Alanine Aminotransferase 7 U/L (6-50); Alkaline Phosphatase 137 U/L (38-126); Anion Gap 10 mmol/L (8-16); Aspartate Amino Transferase 23 U/L (17-59); Bilirubin,Total 0.2 mg/dL (0.2-1.3); Blood Urea Nitrogen 13 mg/dL (9-20); Calcium 8.8 mg/dL (8.4-10.2); Carbon Dioxide 31 mmol/L (22-30); Chloride 107 mmol/L (98-107); Estimated Glomerular Filt Rate 57; Glucose 142 mg/dL (65-110); Magnesium 1.7 mg/dL (1.6-2.3); Partial Thromboplastin Time 43.9 SECONDS (22.3-36.8); Potassium 2.7 mmol/L (3.4-5.0); Sodium 148 mmol/L (137-145)
[2022-05-08 03:46] LABS: Troponin I < 0.012 ng/mL (0.000-0.034)
[2022-05-08 03:55] LABS: Bacteria Urine Trace /hpf; Mucus Urine Rare /lpf; Squamous Epithelial Cell Urine Rare /hpf (Few); WBC Clumps Urine Present /HPF; WBC Urine >75 /hpf
[2022-05-08] MEDS: ONDANSETRON INJ 4 MG/2 ML VIAL IV PUSH (03:56)
[2022-05-08 03:57] LABS: Budding Yeast Urine Present /hpf
[2022-05-08 04:01] LABS: SARS-CoV-2 RNA PCR Negative
[2022-05-08 04:29] LABS: Glucose Point of Care 157 mg/dl (65-105)
--- NOTE | 2022-05-08 05:13 | PC.NURSE ---
ASHLEY Garcia from [facility] called for update at this time.
--- NOTE | 2022-05-08 05:27 | ED.GENADULT ---
HPI - General Adult General Chief complaint: Altered Mental Status Stated complaint: Unresponsive Time Seen by Provider: 05/08/22 03:02 History of Present Illness HPI narrative: Patient 57-year-old gentleman who presents the emergency department with chief complaint of altered mental status. Per EMS they were called to the scene as a cardiac arrest when they arrived the detention staff was performing CPR on the patient. Patient had approximately 1 round of CPR when the CPR was held the patient was awake and was slow to respond. The patient slowly regained consciousness and was able to talk upon arrival in the emergency department. Patient reports that he remembers the staff doing CPR on him. The patient currently has no complaints Related Data Home Medications Medication Instructions Recorded Confirmed levothyroxine 75 mcg tablet 75 mcg PO DAILY 11/06/21 04/25/22 (Euthyrox) Daily Vitamin C Pack 500 mg PO Q12H 11/28/21 04/25/22 Humalog U-100 Insulin See Rx Instructions .Route .COMPLEX 11/28/21 04/25/22 ferrous sulfate 325 mg (65 mg 325 mg PO TIDWM 11/30/21 04/25/22 iron) tablet midodrine 10 mg tablet 10 mg BYMOUTH TID 11/30/21 04/25/22 acetaminophen 500 mg tablet 1,000 mg PO Q6H PRN Mild to 04/09/22 04/25/22 moderate pain ergocalciferol (vitamin D2) 1,250 1,250 mcg PO WEEKLY 04/09/22 04/25/22 mcg (50,000 unit) capsule finasteride 1 mg tablet 1 mg PO DAILY 04/09/22 04/25/22 gabapentin 100 mg capsule 200 mg PO BID 04/09/22 04/25/22 pregabalin 75 mg capsule (Lyrica) 75 mg PO TID 04/09/22 04/25/22 Allergies Allergy/AdvReac Type Severity Reaction Status Date / Time amoxicillin Allergy Rash Verified 05/08/22 03:59 Penicillins Allergy Rash Verified 05/08/22 03:59 Review of Systems Review of Systems: A 10 system review of systems was completed on the patient and is negative except for what is stated in the HPI. Nursing and ancillary documentation was reviewed. [facility] Past Medical History Medical History Alcohol dependence Bacteremia due to Klebsiella pneumoniae (11/2021) Bacteremia due to Klebsiella pneumoniae Bladder outlet obstruction BPH (benign prostatic hyperplasia) Cavitary lesion of lung Chronic anemia Decubitus ulcer Delirium due to general medical condition Diabetes 1.5, managed as type 2 Diabetic peripheral neuropathy Fecal incontinence Gastroparesis Gastroparesis History of alcohol abuse Hypothyroidism TATUM (iron deficiency anemia) Insulin dependent type 2 diabetes mellitus Hemoglobin A1c was greater than 14% on 11/07/2021. Occult blood in stools Orthostatic hypotension (~11/2021) Osteopenia determined by x-ray Pancreatic insufficiency Pancreatitis Protein calorie malnutrition Pulmonary embolism Scrotal abscess Sepsis Severe muscle deconditioning Thoracic compression fracture T9, T10, T12 Tobacco dependence Trauma of urethra Weakness generalized Surgical History Surgical History History of endoscopic retrograde cholangiopancreatography Patient reports pancreatic stent x2. History of tonsillectomy Family History Family History Sibling Depression Family history of pancreatic disease Mother Acute myocardial infarction, Onset Age: 60 Social History Social History Social History: Healthcare power of attorney lawyer: Beth Rodriguez, sister. He is currently at [facility] but would like to go to an assisted living. He has no biological children. He is . He is disabled. Code status: Full code. Smoking packs per day: 8 Smoking cigarettes per day: 160.0 Years smoked: 45 Smoking pack-years: 360.00 Smoking status: Current every day smoker Additional smoking assessment comments: Three packs per day until
[2022-05-08] MEDS: KCL 20 MEQ/SW 100 ML 100 ML 50 MEQ IVPB (05:42)
[2022-05-08] MEDS: POTASSIUM CHLORIDE 20 MEQ PACKET (FOR LIQUID) 80 MEQ PO (06:04)
[2022-05-08 06:13] LABS: Glucose Point of Care 119 mg/dl (65-105)
--- NOTE | 2022-05-08 07:11 | PC.NURSE ---
Report given to ASHLEY Porter
--- NOTE | 2022-05-08 08:40 | ADMGEN ---
This patient, Shad Rodriguez, was admitted to Medical Room 254-01. Patient/family oriented to hospital policies and general routines including ID bracelet, bed and alarms, visiting hours, pain management, procedures, bathroom and other care routines, personal items, smoking policy, room service/diet, and visiting hours. Information on how to activate the Rapid Response Team has been discussed. Patient/Family are encouraged to report perceived risks to care and to ask questions if they do not understand what they are told or what they should do.
[2022-05-08] MEDS: DEXTROSE 5%/0.9% SOD CHL 1,000 ML 100 ML IV CONT ×2 (12:05→20:45)
[2022-05-08 12:16] LABS: Glucose Point of Care 128 mg/dl (65-105)
--- NOTE | 2022-05-08 13:08 | PM.IMHP ---
H&P: HPI History of Present Illness Date/Time: 05/08/22 13:08 Chief Complaint: Cardiopulmonary arrest Narrative: 57yo male with DM, protein calorie malnutrition, alcoholism, gastroparesis and pancreatic insufficiency here for cardiopulmonary arrest. Patient was hospitalized on April 09 for weakness and found to have sepsis, acute kidney injury, UTI and pneumonia. He grew E coli ESBL from blood cultures. He was treated with ertapenem. He was discharged on April 24 but returned the following day for weakness. Pelvic CT showed a 5.5 cm abscess involving the penile urethra and scrotum. Patient was treated with IV antibiotics. Wound culture grew E coli ESBL blood blood cultures were negative. He was also having diarrhea and found to be anemic. GI was consulted and colonoscopy was performed on 05/04/2022 which showed no concerning findings. Patient was discharged on May 05. Patient has very little memory of what has transpired over the past 3 days since discharge. He mentions he has had chest pain as a ?vice? that occurs about once a week lasting about 10 seconds but this may going on for years. Continues to have diarrhea. He mentions significant weight loss of 30 lb other cannot tell me how long. He has a history of falls but no recent falls. He states he is able to walk with a walker 250 ft but he seems unsure of his fax. He is oriented x4. He denies any headaches, vision changes, cough, shortness of breath, fever, chills. He does have a chronic Ellison in but has been no hematuria. The urine has been cloudy. He has chronic low back pain but no abdominal pain. His last memory is watching wrestling last night. [facility] with complaints of [facility]. EMS arrived and found the patient unresponsive. Breathing was labored and shallow. group home stay a staff states they heard a yell and found the patient unresponsive. Patient had snoring respirations which then ceased. They felt for a pulse is and did not appreciate a pulse. CPR was started. Patient became more responsive after 1 round of CPR. His glucose stick was 79. EKG showed normal sinus rhythm. Patient became more awake and alert. Patient brought to the emergency room for evaluation. In the emergency room, patient's vital signs were stable. EKG showed normal sinus rhythm with poor R-wave progression but overall no significant change from prior EKGs. Head CT was read as normal. Cervical spine CT showed no fracture. CT of the chest, abdomen and pelvis showing pneumonia involving the lower lobes and the right middle lobe and lingula. He also has moderate emphysema and left-sided pyelonephritis as well as cystitis. The bulbar urethral in scrotal abscess was noted. There was signs of colitis. He has chronic pancreatitis noted. He has some reactive adenopathy as well as small volume of ascites and small pleural effusions. White count was 11K, hemoglobin 7.9, and platelet count 123K. ABG 7.46/42/79 on room air. Sodium 148 with potassium 2.9 and glucose of 142. He had abnormal urinalysis. COVID was negative. He was treated with dextrose for possible hypoglycemia and Zofran. His potassium was replaced. Started IV fluids and admitted for further care. Review of Systems Review of Systems: All systems reviewed & are unremarkable except as noted in HPI and below PMFSH Past Medical History Medical History Alcohol dependence Bacteremia due to Klebsiella pneumoniae (11/2021) Bacteremia due to Klebsiella pneumoniae Bladder outlet obstruction BPH (benign prostatic hyperplasia) Cavitary lesion of lung Chronic anemia Decubitus ulcer Delirium due to general medical condition Diabetes 1.5, managed as type 2 Diabetic peripheral neuropathy Fecal incontinence Gastroparesis Gastroparesis History of alcohol abuse Hypothyroidism TATUM (iron deficiency anemia) Insulin dependent type 2 diabetes m
[2022-05-08 14:29] LABS: Troponin I < 0.012 ng/mL (0.000-0.034)
[2022-05-08] MEDS: FLUCONAZOLE 100 MG TABLET PO (14:52)
--- NOTE | 2022-05-08 15:12 | WPDURCON ---
Assessment and Plan Assessment and plan (1) Trauma of urethra: Code(s): S37.30XA - Unspecified injury of urethra, initial encounter Status: Acute Assessment and Plan: Catheter is in place and draining well to gravity. Keep loera in place for 4-6 weeks as planned and have it re-placed with Dr. Rivera in the office. Continue IV antibiotics. (2) Scrotal abscess: Code(s): N49.2 - Inflammatory disorders of scrotum Status: Acute Assessment and Plan: Improved upon review of CT scan from 04/25/[address] scan with Dr. Armenta. No further evaluation needed. Continue IV antibiotics. Call if WBC increases, he becomes afebrile, or catheter problems arise. (3) BPH (benign prostatic hyperplasia): Code(s): N40.0 - Benign prostatic hyperplasia without lower urinary tract symptoms Status: Acute Assessment and Plan: Continue Tamsulosin. Urology Consult Note HPI Date Seen: 05/08/22 Time Seen: 14:45 Requesting Physician: Maru Thompson DO Primary Care Provider: Frantz Nowak MD Consult Narrative Reason for consult: Urethral Abscess Narrative: Shad Rodriguez is a 57 year old male who is well known to our practice was brought to the ER this morning via EMS. He was found unconscious at home and when EMS arrived he had CPR done which achieved consciousness. He states he had been having chest pain for several days since was discharged from [facility] earlier this week. He was found to have hypokalemia with a potassium at 2.7, however his WBC is not elevated significantly at 11.0, creatinine is 1.30. He was previously evaluated by our group when he was hospitalized and found to have a urethral abscess. Dr. Ballard attempted a catheteter placement on 04/25/22 but was unsuccessful and he was then sent to IR for placement of an SP tube on 04/25/22 later that day which was successful. He was then started on IV antibiotics. His abscess cultures grew E-Coli and E-Coli with ESBL. He was then taken to the OR on 04/30/22 for a cystoscopy with complex catheter placement and cystogram which was successful. He continued to then improve and was discharged home with plans to keep his loera in place for 4-6 weeks and have it replaced in the office by Dr. Rivera as well as home IV antibiotics. He has a PICC line in place. His urine is clear, yellow and draining to gravity today. He has no c/o abdominal or pelvic pain and states his catheter has been draining well. CT scan from today shows a partially visualized abscess involving the bulbar urethra and scrotum. Review of Systems Cardiovascular: Cardiovascular: Reports chest pain Respiratory: Respiratory: Reports dyspnea Gastrointestinal: Gastrointestinal: Denies abdominal pain, Denies nausea and Denies vomiting Genitourinary: Genitourinary: Denies hematuria and Denies flank pain PMFSH Past Medical History Medical History Alcohol dependence Bacteremia due to Klebsiella pneumoniae (11/2021) Bacteremia due to Klebsiella pneumoniae Bladder outlet obstruction BPH (benign prostatic hyperplasia) Cavitary lesion of lung Chronic anemia Decubitus ulcer Delirium due to general medical condition Diabetes 1.5, managed as type 2 Diabetic peripheral neuropathy Fecal incontinence Gastroparesis Gastroparesis History of alcohol abuse Hypothyroidism TATUM (iron deficiency anemia) Insulin dependent type 2 diabetes mellitus Hemoglobin A1c was greater than 14% on 11/07/2021. Occult blood in stools Orthostatic hypotension (~11/2021) Osteopenia determined by x-ray Pancreatic insufficiency Pancreatitis Protein calorie malnutrition Pulmonary embolism Scrotal abscess Sepsis Severe muscle deconditioning Thoracic compression fracture T9, T10, T12 Tobacco dependence Trauma of urethra Weakness generalized Surgical History Surgical History H
--- NOTE | 2022-05-08 15:31 | PCPTNOTE ---
Per OT: Spoke with hospitalist and CC re: pt.'s multiple recent admissions and D/Cs from therapy services due to pt. displaying lack of motivation, limited progress, and therapy refusals. D/C services at this time due to previously stated reasons, with request that pt. evaluation be reordered if pt. displays willingness and compliance with work with therapy services.
[2022-05-08] MEDS: SODIUM BICARBONATE TAB 650 MG TABLET PO (16:37)
[2022-05-08] MEDS: MIDODRINE HCL 10 MG TABLET BY MOUTH (16:38)
[2022-05-08] MEDS: LIPASE/AMYLASE/PROTEASE 12,000 UNITS CAP 2 CAP PO (16:39)
[2022-05-08] MEDS: FERROUS SULFATE 324 MG TABLET PO (16:39)
[2022-05-08] MEDS: ASCORBIC ACID 500 MG TABLET PO (16:40)
[2022-05-08] MEDS: CALCIUM CARBONATE (OSCAL) 500 MG TABLET 1000 MG PO (16:40)
[2022-05-08] MEDS: PREGABALIN (*CRX) 75 MG CAPSULE PO (16:53)
[2022-05-08 17:09] LABS: Glucose Point of Care 260 mg/dl (65-105)
[2022-05-08] MEDS: INSULIN ASPART (*BKC) 100 UNITS/ML SUB-Q (17:12)
[2022-05-08] MEDS: TOLNAFTATE 1% POWDER 45 GM BTL 1 APPLIC TOPICAL (20:45)
[2022-05-08] MEDS: INSULIN GLARGINE (*BKC) 100 UNITS/ML 10 UNITS SUB-Q (20:46)
[2022-05-08 20:58] LABS: Glucose Point of Care 260 mg/dl (65-105)
[2022-05-09] VITALS (9 sets, daily range): BP systolic 120–133; BP diastolic 67–74; PULSE 43–57; RESP 16–18; TEMP 36.6; O2SAT 97–100
--- NOTE | 2022-05-09 | ECHO_ITS ---
Patient Info Name: Shad Rodriguez Age: 57 years : 1965 Gender: Male Ht: 70 in Wt: 103 lbs BSA: 1.50 m2 HR: 45 bpm BP: 120 / 69 mmHg Technical Quality: Fair Exam Date: 05/09/2022 7:17 AM Exam Location: [facility] Patient Status: Outpatient Admit Date: 05/08/2022 Staff Ordering Physician: Lui Westfall MD Gluer Machine Operator: Monet Frost RDCS Attending Provider: Maru Thompson DO Exam Type: CA echo doppler color flow Study Info Indications I46.9 - Cardiac arrest, cause unspecified Complete two-dimensional, color flow and Doppler transthoracic echocardiogram is performed. Summary 1. Complete two-dimensional, color flow and Doppler transthoracic echocardiogram is performed. 2. Left ventricular chamber dimension is mildly enlarged. 3. Left ventricular systolic function is normal, estimated at 60-65%. 4. The left ventricular diastolic function is grade III diastolic dysfunction. 5. E/e' 11 is mildly elevated. 6. Left atrial chamber dimension is mildly enlarged. 7. There is mild mitral valve regurgitation. 8. There is trace tricuspid valve regurgitation. 9. There is trivial pericardial effusion. Left Ventricle E/e' 11 is mildly elevated. Left ventricular chamber dimension is mildly enlarged. Left ventricular systolic function is normal, estimated at 60-65%. The left ventricular diastolic function is grade III diastolic dysfunction. Right Ventricle Right ventricular systolic function is normal and with normal TAPSE 2.2 cm. Right ventricular chamber dimension is normal. Left Atria Left atrial chamber dimension is mildly enlarged. Right Atria Right atrial chamber dimension is normal. Aortic Valve The aortic valve is trileaflet. There is no aortic valve stenosis. There is no aortic valve regurgitation. Pulmonic Valve There is no pulmonic regurgitation. Mitral Valve There is no mitral valve stenosis. There is mild mitral valve regurgitation. Tricuspid Valve RVSP is not calculated due to an inadequate TR jet. There is trace tricuspid valve regurgitation. Pericardium/Pleural There is trivial pericardial effusion. Inferior Vena Cava Normal inferior vena cava with >50% collapse upon inspiration consistent with normal right atrial pressure, 5 mmHg. Aorta The aortic root size at the sinus of Valsalva is normal. Left Ventricular Outflow Tract Name Value Normal LVOT 2D LVOT Diameter 2.0 cm LVOT Doppler LVOT Peak Gradient 2 mmHg LVOT Mean Gradient 1 mmHg LVOT VTI 20 cm LVOT VTI/AV VTI Ratio 0.9 LVOT Stroke Volume 63 ml LVOT CO 9.0 l/min LVOT CI 6.0 l/min/m2 Pulmonic Valve Name Value Normal PV Doppler
[2022-05-09] MEDS: LEVOTHYROXINE SODIUM 75 MCG TABLET PO (05:00)
[2022-05-09 05:12] LABS: Basophils Absolute Auto 0.1 K/mm3 (0.0-0.1); Basophils Percent Auto 0.8 % (0.2-1.2); Eosinophils Absolute Auto 0.4 K/mm3 (0-0.3); Eosinophils Percent Auto 3.8 % (0-4.4); Hemoglobin 7.1 g/dL (14.0-18.0); Immature Granulocyte Absolute 0.14 K/mm3 (0.00-0.031); Immature Granulocyte Percent A 1.2 % (0-0.5); Lymphocytes Absolute Auto 2.63 K/mm3 (0.9-3.2); Lymphocytes Percent Auto 22.8 % (18.3-44.2); Mean Corpuscular HGB Conc 30.9 g/dl (32-36); Mean Corpuscular Hemoglobin 27.2 pg (26-34); Mean Corpuscular Volume 88.1 fl (80-100); Mean Platelet Volume 9.6 fl (7.4-10.4); Monocytes Absolute Auto 0.7 K/mm3 (0.1-0.6); Monocytes Percent Auto 5.6 % (2.6-8.5); Neutrophils Absolute Auto 7.6 K/mm3 (1.3-6.7); Neutrophils Percent Auto 65.8 % (45.5-73.1); Platelet Count Result 129 k/mm3 (150-375); Red Blood Count 2.61 M/mm3 (4.6-6.20); Red Cell Distribution Width 15.3 % (11.5-14.5); White Blood Count 11.5 K/mm3 (4.5-10.0)
[2022-05-09 05:36] LABS: Magnesium 1.7 mg/dL (1.6-2.3); Phosphorus 2.6 mg/dL (2.5-4.5)
[2022-05-09 08:25] LABS: Glucose Point of Care 357 mg/dl (65-105)
--- NOTE | 2022-05-09 08:50 | WPDNEUROLOGY ---
Neurology EEG Report General Information Date of Study: 05/09/22 TEST Routine EEG DIAGNOSIS Possible seizure CONDITION OF RECORDING Awake, drowsy EEG NUMBER [id number] CLINICAL HISTORY Patient currently admitted post cardiac arrest. EEG DESCRIPTION The awake background rhythm showed intermittent theta range slowing (5-7Hz). The recording was symmetric throughout without any focalization. Patient did transition to drowsiness with some delta, theta range slowing, but did not achieve stage II sleep. Hyperventilation and photic stimulation were not performed. There were no epileptiform discharges or electrographic seizures noted during the recording. IMPRESSION This is an abnormal EEG due to the presence of intermittent theta range slowing, which can be seen in mild encephalopathy. There are no electrographic seizures or epileptiform features identified. Clinical correlation is recommended.
[2022-05-09 09:13] LABS: Glucose Point of Care 411 mg/dl (65-105)
[2022-05-09] MEDS: TAMSULOSIN HCL 0.4 MG CAPSULE PO (09:13)
[2022-05-09] MEDS: SODIUM BICARBONATE TAB 650 MG TABLET PO ×2 (09:13→17:45)
[2022-05-09] MEDS: THIAMINE HCL 100 MG TABLET BY MOUTH (09:13)
[2022-05-09] MEDS: MAGNESIUM OXIDE 400 MG TABLET PO (09:13)
[2022-05-09] MEDS: PANTOPRAZOLE 40 MG TABLET PO (09:14)
[2022-05-09] MEDS: ASCORBIC ACID 500 MG TABLET PO ×2 (09:14→17:45)
[2022-05-09] MEDS: MIDODRINE HCL 10 MG TABLET BY MOUTH ×3 (09:14→17:45)
[2022-05-09] MEDS: CHOLECALCIFEROL 1,000 UNITS TABLET 1000 UNITS BY MOUTH (09:14)
[2022-05-09] MEDS: FLUDROCORTISONE ACETATE 0.1 MG TABLET PO (09:14)
[2022-05-09] MEDS: ZINC SULFATE 220 MG CAPSULE PO (09:14)
[2022-05-09] MEDS: DULoxetine HCL 20 MG CAPSULE.DR PO (09:14)
[2022-05-09] MEDS: LIPASE/AMYLASE/PROTEASE 12,000 UNITS CAP 2 CAP PO ×3 (09:14→17:45)
[2022-05-09] MEDS: FOLIC ACID 1 MG TABLET BY MOUTH (09:14)
[2022-05-09] MEDS: FLUCONAZOLE 100 MG TABLET PO (09:14)
[2022-05-09] MEDS: FERROUS SULFATE 324 MG TABLET PO ×3 (09:15→17:45)
[2022-05-09] MEDS: CALCIUM CARBONATE (OSCAL) 500 MG TABLET 1000 MG PO ×3 (09:15→17:45)
[2022-05-09] MEDS: TOLNAFTATE 1% POWDER 45 GM BTL 1 APPLIC TOPICAL ×2 (09:18→20:05)
[2022-05-09] MEDS: SILVERGEL (ELTA) 45 ML 1 APPLIC TOPICAL (09:19)
[2022-05-09] MEDS: PREGABALIN (*CRX) 75 MG CAPSULE PO ×3 (09:21→17:47)
[2022-05-09] MEDS: INSULIN ASPART (*BKC) 100 UNITS/ML 10 UNITS SUB-Q (10:05)
--- NOTE | 2022-05-09 11:07 | PM.IMPN ---
Progress Note: A&P Assessment and Plan (1) Cardiopulmonary arrest: Code(s): I46.9 - Cardiac arrest, cause unspecified Status: Acute (2) Hypoglycemia: Code(s): E16.2 - Hypoglycemia, unspecified Status: Acute (3) Scrotal abscess: Code(s): N49.2 - Inflammatory disorders of scrotum Status: Acute (4) Decubitus ulcer: Code(s): L89.90 - Pressure ulcer of unspecified site, unspecified stage Status: Chronic (5) Insulin dependent type 2 diabetes mellitus: Code(s): E11.9 - Type 2 diabetes mellitus without complications; Z79.4 - senior care (current) use of insulin Status: Acute (6) Pancreatic insufficiency: Code(s): K86.89 - Other specified diseases of pancreas Status: Chronic (7) UTI (urinary tract infection) due to urinary indwelling Ellison catheter: Code(s): T83.511A - Infection and inflammatory reaction due to indwelling urethral catheter, initial encounter; N39.0 - Urinary tract infection, site not specified Status: Acute Plan Patient admitted for cardiopulmonary arrest. Etiology unclear. Given the available information, consider seizure vs hypotension vs sleep apnea. Patient has poor memory of recent events so he may be experiencing retrograde amnesia or related to the carbapenem or this is baseline. EEG showing intermittent theta range slowing but no epileptiform features making seizure less likely. Will continue seizure precautions for now since Carbapenems can also cause seizures (but no other abx would be appropriate). Echo is pending. Troponins negative making cardiopulmonary arrest from a cardiac cause unlikely. Noted to be bradycardic at night so check Apnea link to evaluate for PARMINDER Patient had mild hypoglycemia on admission at 53 that was treated. Glucose at the time of the event however was 79. He may have had a hypoglycemic event resulting in seizure. Continue sliding scale protocol. Glucose better so stop IV fluids. Continue Lantus and advance to home dose. Patient's ulcers were reviewed with wound care. His sacral ulcer is much improved from prior. The lesions on his ankles are all but healed at this point. Continue routine skin care. Pancreatic insufficiency history. Continue Creon. He has chronic diarrhea. CT scan says possible colitis although he had a recent colonoscopy that did not show anything and prior CTs also showed colitis so I think this is probably more of a chronic thickening of the bowel and not infectious. For the scrotal abscess, we consulted Urology and continued ertapenem. He still has an abscess. He is on Diflucan presumably for funguria. Plan to continue curent treatment SCDs for DVT prophylaxis. Subjective Date/time seen: 05/09/22 11:07 Interval history: 57yo male with DM, protein calorie malnutrition, alcoholism, gastroparesis and pancreatic insufficiency here for cardiopulmonary arrest.?? Patient is mostly alert and oriented but does have odd statements. He states that he was in the ?basement of my sister's down there helping her out last night?. He is eating okay. No nausea or vomiting. No chest pain or shortness of breath. No cough. Exam Narrative: AF 97.8 120/69 46 18 100% ra Gen - very thin male in NARD Chest - CTA bilaterally. Normal respiratory rate CV - RRR S1/S2 Abd -soft. Scaphoid. Nontender. Positive bowel sounds - Ellison secured draining clear yellow urine. Ext - no pedal edema. PICC line in right upper extremity. Neuro - patient is alert and oriented x3 but with odd statements. Psych - normal mood and affect. Skin - warm and dry. Objective Data Vital Signs Vital Signs: Vital Signs - 24 hr 05/08/22 12:00 05/08/22 14:00 05/08/22 16:00 Temperature 97.6 F Pulse Rate 60 60 77 Respiratory Rate 14 Blood Pressure 124/70 Pulse Oximetry 95 Oxygen Delivery 05/08/22 21:41 05/08/22 20:00 05/09/22 00:00 Temperature 98.0 F Pulse Rate 55
[2022-05-09 11:47] LABS: Glucose Point of Care 132 mg/dl (65-105)
[2022-05-09] MEDS: ALTEPLASE 2 MG VIAL (CATHFLO) IV PUSH (12:20)
--- NOTE | 2022-05-09 14:19 | PC.NURSE ---
spoke with patient's sister about bringing patient's finasteride 1 mg from facility. Sister stated she will try to bring it tomorrow
--- NOTE | 2022-05-09 15:20 | PHAR ---
The patient's home med of Finasteride 1mg has been verified.
[2022-05-09 17:20] LABS: Glucose Point of Care 403 mg/dl (65-105)
[2022-05-09] MEDS: INSULIN ASPART (*BKC) 100 UNITS/ML 8 UNITS SUB-Q (17:42)
[2022-05-09] MEDS: INSULIN GLARGINE (*BKC) 100 UNITS/ML 15 UNITS SUB-Q (20:03)
[2022-05-09 21:34] LABS: Glucose Point of Care 212 mg/dl (65-105)
--- NOTE | 2022-05-09 22:34 | PCRCNOTE ---
Apnea link started pt on room air.
[2022-05-10] VITALS (9 sets, daily range): BP systolic 126–137; BP diastolic 65–77; PULSE 46–85; RESP 16–18; TEMP 36.4–37.1; O2SAT 98–100
--- NOTE | 2022-05-10 01:13 | PCRCNOTE ---
pt found with apnea link off and disconnected.
[2022-05-10] MEDS: LEVOTHYROXINE SODIUM 75 MCG TABLET PO (05:06)
[2022-05-10 05:12] LABS: Hematocrit 24.7 % (42.0-52.0); Hemoglobin 7.7 g/dL (14.0-18.0); Mean Corpuscular HGB Conc 31.2 g/dl (32-36); Mean Corpuscular Volume 86.7 fl (80-100); Mean Platelet Volume 9.9 fl (7.4-10.4); Platelet Count Result 140 k/mm3 (150-375); Red Blood Count 2.85 M/mm3 (4.6-6.20); Red Cell Distribution Width 14.9 % (11.5-14.5); White Blood Count 10.8 K/mm3 (4.5-10.0)
[2022-05-10 05:23] LABS: Anion Gap 10 mmol/L (8-16); Blood Urea Nitrogen 10 mg/dL (9-20); Calcium 8.5 mg/dL (8.4-10.2); Carbon Dioxide 35 mmol/L (22-30); Chloride 97 mmol/L (98-107); Estimated CRCL calculation 44 ml/min; Estimated Glomerular Filt Rate > 60; Glucose 310 mg/dL (65-110); Potassium 3.7 mmol/L (3.4-5.0); Sodium 142 mmol/L (137-145)
[2022-05-10 08:35] LABS: Glucose Point of Care 213 mg/dl (65-105)
[2022-05-10] MEDS: FLUDROCORTISONE ACETATE 0.1 MG TABLET PO (08:41)
[2022-05-10] MEDS: ASCORBIC ACID 500 MG TABLET PO (08:41)
[2022-05-10] MEDS: INSULIN ASPART (*BKC) 100 UNITS/ML SUB-Q ×2 (08:41→12:19)
[2022-05-10] MEDS: LIPASE/AMYLASE/PROTEASE 12,000 UNITS CAP 2 CAP PO ×2 (08:41→12:18)
[2022-05-10] MEDS: FERROUS SULFATE 324 MG TABLET PO ×2 (08:41→12:18)
[2022-05-10] MEDS: SODIUM BICARBONATE TAB 650 MG TABLET PO (08:42)
[2022-05-10] MEDS: CALCIUM CARBONATE (OSCAL) 500 MG TABLET 1000 MG PO ×2 (08:42→12:19)
[2022-05-10] MEDS: CHOLECALCIFEROL 1,000 UNITS TABLET 1000 UNITS BY MOUTH (08:42)
[2022-05-10] MEDS: THIAMINE HCL 100 MG TABLET BY MOUTH (08:42)
[2022-05-10] MEDS: PREGABALIN (*CRX) 75 MG CAPSULE PO ×2 (08:42→12:19)
[2022-05-10] MEDS: FLUCONAZOLE 100 MG TABLET PO (08:42)
[2022-05-10] MEDS: DULoxetine HCL 20 MG CAPSULE.DR PO (08:42)
[2022-05-10] MEDS: MAGNESIUM OXIDE 400 MG TABLET PO (08:42)
[2022-05-10] MEDS: MIDODRINE HCL 10 MG TABLET BY MOUTH ×2 (08:42→12:19)
[2022-05-10] MEDS: TOLNAFTATE 1% POWDER 45 GM BTL 1 APPLIC TOPICAL (08:42)
[2022-05-10] MEDS: PANTOPRAZOLE 40 MG TABLET PO (08:42)
[2022-05-10] MEDS: TAMSULOSIN HCL 0.4 MG CAPSULE PO (08:42)
[2022-05-10] MEDS: ZINC SULFATE 220 MG CAPSULE PO (08:42)
[2022-05-10] MEDS: SILVERGEL (ELTA) 45 ML 1 APPLIC TOPICAL (08:43)
[2022-05-10] MEDS: FOLIC ACID 1 MG TABLET BY MOUTH (08:43)
--- NOTE | 2022-05-10 11:54 | PM.DS ---
DS: Admitting Diagnosis Discharge Date 05/10/22 Admitting Diagnosis Unresponsiveness. DS: Discharge Diagnosis Discharge Diagnosis (1) Cardiopulmonary arrest: Code(s): I46.9 - Cardiac arrest, cause unspecified Status: Acute (2) Hypoglycemia: Code(s): E16.2 - Hypoglycemia, unspecified Status: Acute (3) Scrotal abscess: Code(s): N49.2 - Inflammatory disorders of scrotum Status: Acute (4) Decubitus ulcer: Code(s): L89.90 - Pressure ulcer of unspecified site, unspecified stage Status: Chronic (5) Insulin dependent type 2 diabetes mellitus: Code(s): E11.9 - Type 2 diabetes mellitus without complications; Z79.4 - correction (current) use of insulin Status: Acute (6) Pancreatic insufficiency: Code(s): K86.89 - Other specified diseases of pancreas Status: Chronic (7) UTI (urinary tract infection) due to urinary indwelling Ellison catheter: Code(s): T83.511A - Infection and inflammatory reaction due to indwelling urethral catheter, initial encounter; N39.0 - Urinary tract infection, site not specified Status: Acute DS: Summary Hospital Course Reason for hospitalization: 57yo male with DM, protein calorie malnutrition, alcoholism, gastroparesis and pancreatic insufficiency here for cardiopulmonary arrest.??Please see H&P for details Hospital Course: Patient admitted for possible cardiopulmonary arrest. Given the available information, we considered seizure vs hypotension vs sleep apnea. Patient has poor memory of recent events so he may be experiencing retrograde amnesia or related to the carbapenem or this is baseline. EEG showed intermittent theta range slowing but no epileptiform features making seizure less likely. We continued seizure precautions. Echo showing EF 60-65% with Grade III diastolic dysfunction and no wall motion abnormalities. Troponins negative making cardiopulmonary arrest from a cardiac cause unlikely. Noted to be bradycardic at night so we checked Apnea link but he was unable to sleep so unhelpful test. Glucose at the time of the event was 79 but was mild hypoglycemia on admission at 53 that was treated. He may have had a hypoglycemic event resulting in seizure. He was monitored with AccuCheks covering with sliding scale. Hypoglycemia protocol was available as needed.We continued Lantus Patient's ulcers were reviewed with wound care. His sacral ulcer is much improved from prior. The lesions on his ankles are all but healed at this point. Pancreatic insufficiency history. We continued Creon. He has chronic diarrhea. CT scan says possible colitis although he had a recent colonoscopy that did not show anything and prior CTs also showed colitis so I think this is probably more of a chronic thickening of the bowel and not infectious. For the scrotal abscess, we consulted Urology and continued ertapenem. He still has an abscess. He is on Diflucan presumably for funguria. Plan to continue current treatment Patient overall did well and was able to be discharged on 05/10/22 Spoke with the power of siphon operator. Hospital course and follow-up plan were discussed. All questions were answered. We discussed hospice as an option and she would like more information about this so will place a hospice consult. Status at Discharge Cognitive/behavioral status at discharge: Stable Time Spent with Patient Time attestation: Total time spent providing and/or coordinating discharge services:35 minutes Exam Narrative: AF 98.7 131/68 52 18 98% ra Gen - very thin male in NARD Chest - CTA bilaterally. Normal respiratory rate. CV - RRR S1/S2. Abd -soft. Scaphoid. Nontender. Positive bowel sounds - Ellison secured draining clear yellow urine. Ext - no pedal edema. PICC line in right upper extremity. Psych - normal mood but odd affect. Skin - warm and dry. DS: Data Data Completed and Pending Labs on day of discharge: Labs from
[2022-05-10 12:15] LABS: Glucose Point of Care 226 mg/dl (65-105)
--- NOTE | 2022-05-10 14:15 | PC.NURSE ---
Called Dr. Westfall in attempts to tell him about patient fall. left call back number
[2022-05-10 15:26] LABS: EDCOVIDSCREEN Negative (Negative)
[2022-05-11 13:37] LABS: Prolactin 5.3 ng/mL (***)
--- NOTE | 2022-05-12 12:22 | PC.NURSE ---
Prolactin- 5.3. Dr. Malou herring.
== END 2022-05-10 17:20 | DRG 380 ==
LOC: ANHED 06:35 → ANH2MED 08:14
PROVIDERS: Admitting Provider Internal Medicine; Emergency Provider Emergency Medicine; PCP Internal Medicine; Visit Provider Internal Medicine
DX: E11.649 Type 2 diabetes mellitus with hypoglycemia without coma (principal); L89.153 Pressure ulcer of sacral region, stage 3; I46.9 Cardiac arrest, cause unspecified; E46 Unspecified protein-calorie malnutrition; K31.84 Gastroparesis; E11.43 Type 2 diabetes mellitus with diabetic autonomic (poly)neuropathy; K86.1 Other chronic pancreatitis; N13.8 Other obstructive and reflux uropathy; J43.9 Emphysema, unspecified; K86.89 Other specified diseases of pancreas; N40.1 Benign prostatic hyperplasia with lower urinary tract symptoms; S37.30XA Unspecified injury of urethra, initial encounter; T83.511A Infection and inflammatory reaction due to indwelling urethral catheter, initial encounter; N39.0 Urinary tract infection, site not specified; N49.2 Inflammatory disorders of scrotum; E87.6 Hypokalemia; K52.9 Noninfective gastroenteritis and colitis, unspecified; F17.210 Nicotine dependence, cigarettes, uncomplicated; F10.21 Alcohol dependence, in remission; Z20.822 Contact with and (suspected) exposure to COVID-19; D50.9 Iron deficiency anemia, unspecified; M54.50 Low back pain, unspecified; G89.29 Other chronic pain; W06.XXXA Fall from bed, initial encounter; Z79.4 Long term (current) use of insulin; Z79.899 Other long term (current) drug therapy; Z91.81 History of falling
CPT/HCPCS: 36415; 36600; 70450; 71260; 72125; 74177; 80048; 80053; 81001; 82375; 82805; 82948; 83050; 83605; 83735; 84100; 84146; 84484; 85025; 85027; 85610; 85730; 87086; 87088; 87106; 87426; 93005; 93306; 93880; 95816; 96361; 96365; 96366; 96367; 96375; 99285; A9270; C9803; G0378; G0379; J1335; J1815; J2405; J2997; J3480; J7042; Q9967; U0003; U0005

== ENCOUNTER 2022-05-13 12:37 | Observation (INO) | payer OTHER, SELFPAY ==
--- NOTE | ~2022-05-13 | XR_ITS ---
EXAM: XR knee LT 2V DATE: 05/13/2022 20:56 HISTORY: bruise,FALL . COMPARISON: 07/22/2015. FINDINGS: Exam limited by suboptimal positioning and portable technique. Decreased mineralization. No fracture or dislocation. No lytic or blastic lesion. Joint spaces are maintained. No erosion or salvador osteal change. Anterior soft tissue swelling. IMPRESSION: Limited examination as above. Within those constraints, no definite acute osseous finding in the left knee. Reviewed, dictated and finalized at location K.
--- NOTE | ~2022-05-13 | US_ITS ---
CORRECTED REPORT Procedure description changed to US guided cystostomy w/ imaging. 05/21/2022 se This report was recreated on 05/21/2022. Original report was EXAMINATION: US guided cystostomy w/ imaging DATE: 05/13/2022 18:30 INDICATION: Urethral obstruction with displaced Ellison catheter requiring suprapubic catheter placement. TECHNIQUE: The procedure including the risks and benefits was discussed with the patient's daughter. Risks discussed included bleeding, infection and allergic reaction. Oral consent were obtained. The patient was confirmed to be receiving appropriate antibiotic coverage. The skin in the suprapubic region was prepped and draped in usual sterile fashion. Anesthetic was administered with 1% lidocaine subcutaneously. An 18-gauge needle was advanced into the bladder with ultrasound guidance. The inner trocar was removed and a J-wire advanced through the needle into the bladder. Utilizing Seldinger technique the needle was removed and the tract serially dilated over the wire to 12 Azeri. A 12 Azeri catheter was then advanced over the wire into the bladder and the metal stiffener removed and the pigtail loop formed and locked. Catheter position was confirmed by ultrasound. The catheter was then attached to gravity drainage and was draining opaque milky yellow return at the conclusion of the procedure. The catheter was stitched to the skin with suture, antibiotic ointment and a sterile dressing were applied. An additional adhesive fixation device was applied. There were no immediate complications. FINDINGS: Layering debris seen in the dependent aspect of the bladder. Subsequent images demonstrate needle and subsequently the catheter advanced into the bladder. IMPRESSION: 1. Successful ultrasound-guided suprapubic bladder drainage catheter placement. Reviewed, dictated and finalized at location A. MTDD
--- NOTE | ~2022-05-13 | XR_ITS ---
EXAMINATION: XR chest 1V Exam Date/Time: 05/13/2022 20:45 CDT HISTORY: FX HIP, HX PE, WEAKNESS Comparison: 05/04/2022. RESULT: Lines, tubes, and devices: Right upper extremity PICC terminating in the SVC. Lungs and pleura: Resolving bilateral lower lung opacities. Cardiomediastinal silhouette: Stable. Other: No acute osseous or upper abdominal finding. IMPRESSION: Improving pulmonary opacities. Reviewed, dictated and finalized at location K.
--- NOTE | ~2022-05-13 | XR_ITS ---
EXAM: XR hip LT 2V w AP pelvis DATE: 05/13/2022 20:56 HISTORY: Externally rotated and shortened left hip . COMPARISON: None available. FINDINGS: Decreased mineralization. Medially angulated, comminuted left intertrochanteric fracture. No lytic or blastic lesion. Bilateral hip osteoarthritis. Degenerative change in the lumbar spine. No erosion or periosteal change. Soft tissues within normal limits. Midline drainage catheter projects over the pelvis IMPRESSION: Comminuted, angulated left intertrochanteric fracture. Reviewed, dictated and finalized at location K.
[2022-05-13 12:38] VITALS: BP 85/69; PULSE 77; RESP 14; TEMP 36.6; O2SAT 99
[2022-05-13 12:54] VITALS: PULSE 81
--- NOTE | 2022-05-13 13:17 | ED.GENADULT ---
HPI - General Adult General Chief complaint: Unspecified Stated complaint: self removed urinary cath Time Seen by Provider: 05/13/22 12:53 History of Present Illness HPI narrative: Patient is a 57-year-old male with a history of diabetes, chronic pancreatitis, complex urologic history related to bladder outlet obstruction and scrotal abscess presenting with dislodged Ellison catheter. Patient was recently discharged to a intermediate and transitioned to comfort only status with hospice. Last month, he was hospitalized multiple times and was found to have a scrotal abscess requiring a suprapubic catheter. When this was removed, a Ellison catheter was replaced in the OR by urology which has remained in place. Unfortunately, the patient accidentally dislodged the Ellison catheter this morning at the intermediate. It was fully removed. Given his urologic history, they brought him in for evaluation. On arrival, patient is confused but alert. States he is in pain but is unable to elaborate. Related Data Home Medications Medication Instructions Recorded Confirmed Humalog U-100 Insulin See Rx Instructions .Route .COMPLEX 11/28/21 05/13/22 midodrine 10 mg tablet 10 mg BYMOUTH TID 11/30/21 05/13/22 finasteride 1 mg tablet 1 mg PO DAILY 04/09/22 05/13/22 pregabalin 75 mg capsule (Lyrica) 75 mg PO TID 04/09/22 05/13/22 acetaminophen 500 mg tablet 1,000 mg PO Q6H PRN Mild to 05/13/22 05/13/22 moderate pain gabapentin 100 mg tablet 200 mg PO BID 05/13/22 05/13/22 heparin flush (porcine) 100 10 unit IV DAILY 05/13/22 05/13/22 unit/mL in 0.9 % sodium chloride IV kit hydrocodone 5 mg-acetaminophen 325 1 tablet PO Q4H PRN Pain (Scale 05/13/22 05/13/22 mg tablet Score 4-6) lorazepam 1 mg/0.5 mL oral syringe 1 mg PO Q2-3H PRN Agitation 05/13/22 05/13/22 (FOR ORAL USE ONLY) miconazole nitrate 2 % topical 1 applic topical BID 05/13/22 05/13/22 cream morphine concentrate 100 mg/5 mL 10 mg PO Q2-3H PRN Pain 05/13/22 05/13/22 (20 mg/mL) oral solution nicotine 21 mg/24 hr daily 1 patch transdermal DAILY 05/13/22 05/13/22 transdermal patch Allergies Allergy/AdvReac Type Severity Reaction Status Date / Time amoxicillin Allergy Rash Verified 05/08/22 03:59 Penicillins Allergy Rash Verified 05/08/22 03:59 Review of Systems Review of Systems: ROS unobtainable: Yes unobtainable due to mental status [facility] Past Medical History Medical History (Updated 05/13/22 @ 20:13 by Charla Douglas NP) Alcohol dependence Bacteremia due to Klebsiella pneumoniae (11/2021) Bacteremia due to Klebsiella pneumoniae Bladder outlet obstruction BPH (benign prostatic hyperplasia) Cavitary lesion of lung Chronic anemia Decubitus ulcer Delirium due to general medical condition Diabetes 1.5, managed as type 2 Diabetic peripheral neuropathy Fecal incontinence Gastroparesis Gastroparesis History of alcohol abuse History of ESBL E. coli infection Hypothyroidism TATUM (iron deficiency anemia) Insulin dependent type 2 diabetes mellitus Hemoglobin A1c was greater than 14% on 11/07/2021. Occult blood in stools Orthostatic hypotension (~11/2021) Osteopenia determined by x-ray Pancreatic insufficiency Pancreatitis Protein calorie malnutrition Pulmonary embolism Scrotal abscess Sepsis Severe muscle deconditioning Suprapubic catheter Thoracic compression fracture T9, T10, T12 Tobacco dependence Trauma of urethra Weakness generalized Surgical History Surgical History History of endoscopic retrograde cholangiopancreatography Patient reports pancreatic stent x2. History of tonsillectomy Family History Family History Sibling Depression Family history of pancreatic disease Mother Acute myocardial infarction, Onset Age: 60 Social History Social History (Updated 05/13/22 @ 20:16 by Charla Douglas NP) Social History:
[2022-05-13 14:50] VITALS: BP 89/58; PULSE 86; RESP 17; O2SAT 99
[2022-05-13 15:23] VITALS: BP 108/60; PULSE 90; RESP 15; O2SAT 99
--- NOTE | 2022-05-13 17:18 | PC.NURSE ---
Dr Merida spoke with pranay CARIAS on the phone US was given ARETHA name and number to contact
--- NOTE | 2022-05-13 18:04 | PC.NURSE ---
per Gloria at hospice, this patients admission will not jeopardize hospice.
--- NOTE | 2022-05-13 18:29 | PC.NURSE ---
patient went to US and suprapubic catheter was placed. Spoke with radiology and he suggested that patient be placed on IV abx for preventative measures. Dr. Merida aware
[2022-05-13 18:30] VITALS: BP 88/65; PULSE 89; RESP 20; O2SAT 96
--- NOTE | 2022-05-13 18:35 | PC.NURSE ---
Per hospitalist at bedside, sending u/a to lab for culture prior to transport to floor.
[2022-05-13 18:48] LABS: Appearance Urine Turbid (Clear); Bilirubin Urine Negative (Negative); Blood Urine 2+ (Negative); Color Urine Yellow (Yellow); Glucose Urine UA Negative (Negative); Ketones Urine Negative (Negative); Leukocyte Esterase Ur 1+ LEU/UL (Negative); Nitrate Urine Negative (Negative); Protein Urine 2+ mg/dL (Negative); Specific Grav Ur 1.025 (1.001-1.035); Urobilinogen Urine 0.2 mg/dL (<2.0); pH Urine 5.5 (5.0-9.0)
--- NOTE | 2022-05-13 18:52 | ADMGEN ---
This patient, Shad Rodriguez, was admitted to Medical Room 345-01. Patient/family oriented to hospital policies and general routines including ID bracelet, bed and alarms, visiting hours, pain management, procedures, bathroom and other care routines, personal items, smoking policy, room service/diet, and visiting hours. Information on how to activate the Rapid Response Team has been discussed. Patient/Family are encouraged to report perceived risks to care and to ask questions if they do not understand what they are told or what they should do.
[2022-05-13 18:55] LABS: Add Urine Microscopic? YES; Bacteria Urine Trace /hpf; Budding Yeast Urine Present /hpf; RBC Urine >75 /hpf (0-2); WBC Clumps Urine Present /HPF; WBC Urine >75 /hpf
--- NOTE | 2022-05-13 19:00 | PM.IMHP ---
H&P: HPI History of Present Illness Date/Time: 05/13/22 19:00 Chief Complaint: Dislodged Ellison catheter Narrative: This is a 57-year-old male patient who has a history of scrotal abscess and had of PICC line placed for antibiotic therapy. The patient has been on Invanz. The patient also had a suprapubic catheter of which the patient accidentally pulled out. The patient was recently discharged from this hospital on 05/10/2022 to a nursing facility. Patient was transition to comfort only with hospice. The patient was very confused and lethargic when I saw him he was not able to answer my questions. Interventional Radiology was able to place a suprapubic catheter via ultrasound. The patient's urine was very cloudy and foul smelling. The urine was sent off to lab for urinalysis. Patient's white counts 10.8. His H&H is 7.7 and 24.7 which is his baseline. Platelet count 140. His blood sugars were ranging from 310-226 today. Patient was found to be positive for UTI. It was reported that the patient is already on Invanz. Patient's scrotal abscess grew out E coli ESBL. The patient was given IV fluids in the emergency room. The patient is being admitted to observation status for the suprapubic replacement date of service is 05/13/2022. Review of Systems Review of Systems: See HPI All systems reviewed & are unremarkable except as noted in HPI and below Constitutional: Constitutional: Reports as per HPI and Reports no additional constitutional complaints Eyes: Eyes: Reports as per HPI and Reports no additional eye complaints ENT: Reports system reviewed and no additional complaints, except as documented and Reports Normal hearing present Cardiovascular: Cardiovascular: Reports no additional cardiovascular complaints Respiratory: Respiratory: Reports no additional respiratory complaints and Reports no additional respiratory complaints Gastrointestinal: Gastrointestinal: Reports as per HPI and Reports no additional gastrointestinal complaints Musculoskeletal: Musculoskeletal: Reports no additional musculoskeletal complaints Integumentary/Breasts: Skin/Breast: Reports system reviewed and no additional complaints, except as docu and Reports as per HPI Neurologic: Reports system reviewed and no additional complaints, except as documented, Reports as per HPI and Reports Normal hearing present Psychiatric: Psychiatric: Reports no additional psychiatric complaints and Reports as per HPI Endocrine: Endocrine: Reports no additional endocrine complaints Hematologic/Lymphatic: Hematologic/Lymphatic: Reports no additional hematologic/lymphatic complaints Allergic/Immunologic: Allergic/Immunologic: Reports no additional allergic/immunologic complaints [facility] Past Medical History Medical History (Updated 05/13/22 @ 20:13 by Charla Douglas NP) Alcohol dependence Bacteremia due to Klebsiella pneumoniae (11/2021) Bacteremia due to Klebsiella pneumoniae Bladder outlet obstruction BPH (benign prostatic hyperplasia) Cavitary lesion of lung Chronic anemia Decubitus ulcer Delirium due to general medical condition Diabetes 1.5, managed as type 2 Diabetic peripheral neuropathy Fecal incontinence Gastroparesis Gastroparesis History of alcohol abuse History of ESBL E. coli infection Hypothyroidism TATUM (iron deficiency anemia) Insulin dependent type 2 diabetes mellitus Hemoglobin A1c was greater than 14% on 11/07/2021. Occult blood in stools Orthostatic hypotension (~11/2021) Osteopenia determined by x-ray Pancreatic insufficiency Pancreatitis Protein calorie malnutrition Pulmonary embolism Scrotal abscess Sepsis Severe muscle deconditioning Suprapubic catheter Thoracic compression fracture T9, T10, T12 Tobacco dependence Trauma of urethra Weakness generalized Surgical History Surgical History History of endoscopic retrograde cholangiopancreatography Patient reports pancreat
[2022-05-13 19:40] VITALS: BP 90/59; PULSE 76; RESP 20; TEMP 36.1; O2SAT 92
[2022-05-13 19:41] VITALS: BMI 13.8
--- NOTE | 2022-05-13 20:41 | PC.NURSE ---
This patient, Shad Rodriguez, was admitted to 3 Medical Room 345-01. Patient/family oriented to hospital policies and general routines including ID bracelet, bed and alarms, visiting hours, pain management, procedures, bathroom and other care routines, personal items, smoking policy, room service/diet, and visiting hours. Information on how to activate the Rapid Response Team has been discussed. Patient/Family are encouraged to report perceived risks to care and to ask questions if they do not understand what they are told or what they should do. X ray showed fractured Lt hip results called to [facility]. Spoke with sister regarding fracture and that pt would be a very poor surgical candidate to have any thing done. Reassured her that pain could be controlled with medication as he is currently in hospice at this time. Sister states she will speak with other family members and call back later with how they would like to proceed.
[2022-05-13 20:46] LABS: Glucose Point of Care 185 mg/dl (65-105)
[2022-05-13] MEDS: ERTAPENEM 1 GM/NS 50 ML 1 GM/50 ML BAG IVPB (22:17)
[2022-05-13] MEDS: fentaNYL CITRATE INJ (*CRX) 100 MCG/2 ML VIAL 50 MCG IV PUSH (22:17)
[2022-05-13] MEDS: TOLNAFTATE 1% POWDER 45 GM BTL 1 APPLIC TOPICAL (22:18)
[2022-05-14 05:10] VITALS: BP 104/66; PULSE 65; RESP 18; TEMP 36.6; O2SAT 93
[2022-05-14 05:39] LABS: Alanine Aminotransferase 15 U/L (6-50); Albumin Level 3.4 g/dL (3.5-5.1); Alkaline Phosphatase 145 U/L (38-126); Anion Gap 17 mmol/L (8-16); Aspartate Amino Transferase 26 U/L (17-59); Bilirubin,Total 0.5 mg/dL (0.2-1.3); Blood Urea Nitrogen 31 mg/dL (9-20); Calcium 8.4 mg/dL (8.4-10.2); Carbon Dioxide 26 mmol/L (22-30); Chloride 107 mmol/L (98-107); Estimated CRCL calculation 28 ml/min; Estimated Glomerular Filt Rate 45; Glucose 129 mg/dL (65-110); Potassium 3.7 mmol/L (3.4-5.0); Sodium 150 mmol/L (137-145)
[2022-05-14 05:40] LABS: Lactic Acid Reflex 1.5 mmol/L (0.7-2.0)
[2022-05-14 05:54] LABS: Lipase < 10 U/L (23-300)
--- NOTE | 2022-05-14 07:29 | WPDURCON ---
Assessment and Plan Assessment and plan (1) Suprapubic catheter: Code(s): Z93.59 - Other cystostomy status Status: Acute (2) Scrotal abscess: Code(s): N49.2 - Inflammatory disorders of scrotum Status: Acute Assessment and Plan: Given patient's decision for supportive care only and propensity to dislodge urethral catheters I think we will plan to manage his disrupted urethra with a suprapubic catheter computer terminal operator. We can leave this current catheter in for 4-6 weeks prior to exchange in our office. Thereafter, suprapubic catheter changes can be done by visiting nurses at home. Urology Consult Note HPI Date Seen: 05/14/22 Requesting Physician: Yogesh Trujillo MD Primary Care Provider: Frantz Nowak MD Consult Narrative Narrative: Shad Rodriguez is a 57 year old male known to our practice from recent admission when he was found to have a scrotal abscess that had disrupted his bulbous urethra. Initially, this was managed with placement of a suprapubic catheter. Eventually, with significant difficulty, I was able to place a urethral catheter under anesthesia and direct visualization. Patient has since opted for supportive care. Just prior to discharge he dislodged urethral catheter. Under ultrasound guidance a suprapubic catheter was placed into his bladder and continues to drain clear urine currently. Review of Systems Review of Systems: ROS unobtainable: Yes unobtainable due to mental status PMF[facility] Past Medical History Medical History (Updated 05/13/22 @ 20:13 by Charla Douglas NP) Alcohol dependence Bacteremia due to Klebsiella pneumoniae (11/2021) Bacteremia due to Klebsiella pneumoniae Bladder outlet obstruction BPH (benign prostatic hyperplasia) Cavitary lesion of lung Chronic anemia Decubitus ulcer Delirium due to general medical condition Diabetes 1.5, managed as type 2 Diabetic peripheral neuropathy Fecal incontinence Gastroparesis Gastroparesis History of alcohol abuse History of ESBL E. coli infection Hypothyroidism TATUM (iron deficiency anemia) Insulin dependent type 2 diabetes mellitus Hemoglobin A1c was greater than 14% on 11/07/2021. Occult blood in stools Orthostatic hypotension (~11/2021) Osteopenia determined by x-ray Pancreatic insufficiency Pancreatitis Protein calorie malnutrition Pulmonary embolism Scrotal abscess Sepsis Severe muscle deconditioning Suprapubic catheter Thoracic compression fracture T9, T10, T12 Tobacco dependence Trauma of urethra Weakness generalized Surgical History Surgical History History of endoscopic retrograde cholangiopancreatography Patient reports pancreatic stent x2. History of tonsillectomy Family History Family History Sibling Depression Family history of pancreatic disease Mother Acute myocardial infarction, Onset Age: 60 Social History Social History (Updated 05/13/22 @ 20:16 by Charla Douglas NP) Social History: Healthcare power of compliance attorney: Beth Rodriguez, sister. He is currently in a custodial. He has no biological children. He is . He is disabled. Code status: DNR Smoking packs per day: 1 Smoking cigarettes per day: 20.0 Years smoked: 40 Smoking pack-years: 40.00 Smoking status: Current every day smoker Tobacco type: cigarettes Additional smoking assessment comments: Three packs per day until 2011 then down to<1 pack per day. Alcohol intake: former Alcohol use details: Quit 2009 Substance use: former Substance use type: does not use Last use: 02/23/22 Additional living arrangements comments: The patient lives in [place]. Additional occupation/education comments: Disabled. Spiritual care concerns: No Meds Home Medications and Allergies Home Medications Medication Instructions Recorded Confirmed Type tamsulosin 0.
[2022-05-14] MEDS: SILVERGEL (ELTA) 45 ML 1 APPLIC TOPICAL (08:41)
[2022-05-14] MEDS: TOLNAFTATE 1% POWDER 45 GM BTL 1 APPLIC TOPICAL (08:41)
--- NOTE | 2022-05-14 11:00 | PC.NURSE ---
On 05/14/22, the student, Wendy Daniels, provided care and completed [facility] documentation on this patient. I have reviewed the student's documentation and agree with the findings.
[2022-05-14 11:42] LABS: Basophils Absolute Auto 0.1 K/mm3 (0.0-0.1); Basophils Percent Auto 0.7 % (0.2-1.2); Eosinophils Absolute Auto 0.3 K/mm3 (0-0.3); Eosinophils Percent Auto 1.5 % (0-4.4); Hematocrit 25.3 % (42.0-52.0); Hemoglobin 7.3 g/dL (14.0-18.0); Immature Granulocyte Absolute 0.11 K/mm3 (0.00-0.031); Immature Granulocyte Percent A 0.6 % (0-0.5); Lymphocytes Absolute Auto 2.08 K/mm3 (0.9-3.2); Lymphocytes Percent Auto 10.9 % (18.3-44.2); Mean Corpuscular HGB Conc 28.9 g/dl (32-36); Mean Corpuscular Hemoglobin 26.7 pg (26-34); Mean Corpuscular Volume 92.7 fl (80-100); Monocytes Absolute Auto 0.9 K/mm3 (0.1-0.6); Monocytes Percent Auto 4.9 % (2.6-8.5); Neutrophils Absolute Auto 15.5 K/mm3 (1.3-6.7); Neutrophils Percent Auto 81.4 % (45.5-73.1); Platelet Count Result 215 k/mm3 (150-375); Red Blood Count 2.73 M/mm3 (4.6-6.20); Red Cell Distribution Width 15.7 % (11.5-14.5)
[2022-05-14 12:30] LABS: Hypochromasia 1+ (NORMAL); Platelet Estimate Adequate (Adequate)
[2022-05-14 14:00] VITALS: BP 102/83; PULSE 85; RESP 18; TEMP 36.6; O2SAT 99
--- NOTE | 2022-05-14 14:42 | PM.DS ---
DS: Admitting Diagnosis Discharge Date 05/14/2022 Admitting Diagnosis accidental removal of suprapubic catheter DS: Discharge Diagnosis Discharge Diagnosis (1) Suprapubic catheter: Code(s): Z93.59 - Other cystostomy status Status: Acute Assessment and Plan: -patient's suprapubic catheter was incidentally pulled out at the [facility]. The staff here attempted to reinsert the suprapubic catheter without success. Interventional Radiology was able to place the suprapubic catheter. The patient is on hospice and this procedure was performed for comfort measures. (2) History of ESBL E. coli infection: Code(s): Z86.19 - Personal history of other infectious and parasitic diseases Status: Acute Assessment and Plan: -patient has a PICC line to the right forearm and he is currently on Invanz. (3) Scrotal abscess: Code(s): N49.2 - Inflammatory disorders of scrotum Status: Acute Assessment and Plan: -the patient is currently on Invanz. (4) Decubitus ulcer: Code(s): L89.90 - Pressure ulcer of unspecified site, unspecified stage Status: Chronic Assessment and Plan: -patient is comfort care. (5) Diabetes 1.5, managed as type 2: Code(s): E13.9 - Other specified diabetes mellitus without complications Status: Acute Assessment and Plan: -Accu-Cheks AC and HS with sliding scale insulin. (6) UTI (urinary tract infection) due to urinary indwelling Ellison catheter: Code(s): T83.511A - Infection and inflammatory reaction due to indwelling urethral catheter, initial encounter; N39.0 - Urinary tract infection, site not specified Status: Acute Assessment and Plan: -patient's urine was cloudy and dark when the suprapubic catheter was placed. UA was positive for UTI. The patient is currently on Invanz. Awaiting cultures. Plan The patient is currently on hospice with comfort measures. The patient is lethargic and unresponsive I do not believe that he will be able to take his p.o. medications. We can check his blood sugars and continue with the IV antibiotics. The patient was admitted observation overnight for this suprapubic catheter to be placed. The patient has a bruise to his left knee and externally rotated left hip. I did order x-rays. Continue with analgesics DS: Summary Hospital Course Reason for hospitalization: This is a 57-year-old male patient who has a history of scrotal abscess and had of PICC line placed for antibiotic therapy.? The patient has been on Invanz.? The patient also had a suprapubic catheter of which the patient accidentally pulled out.? The patient was recently discharged from this hospital on 05/10/2022 to a nursing facility.? Patient was transition to comfort only with hospice.? The patient's urine was very cloudy and foul smelling.? The urine was sent off to lab for urinalysis.? Patient's white counts 10.8.? His H&H is 7.7 and 24.7 which is his baseline.? Platelet count 140.? His blood sugars were ranging from 310-226 today.? Patient was found to be positive for UTI.? It was reported that the patient is already on Invanz.? Patient's scrotal abscess grew out E coli ESBL.? The patient was given IV fluids in the emergency room.? The patient is being admitted to observation status for the suprapubic replacement date of service is 05/13/2022. Hospital Course: # Suprapubic catheter: patient's suprapubic catheter was [facility]ally pulled [facility] at the [facility].? The staff here attempted to reinsert the suprapubic catheter without success.? Interventional Radiology was able to place the suprapubic catheter.? The patient is on hospice and this procedure was performed for comfort measures. # History of ESBL E. coli infection: -patient has a PICC line to the right forearm and he is currently on Invanz. # Scrotal abscess: ? -the patient is currently on Invanz. # Decubitus ulcer: ?-patient is comfort care. # Diabetes 1.5
[2022-05-14 16:19] LABS: EDCOVIDSCREEN Negative (Negative)
== END 2022-05-14 16:30 | disposition hospice, home (50) ==
LOC: ANHED 13:15 → ANH3MED 18:07
PROVIDERS: Nurse Practitioner; Admitting Provider Chiropractor; Emergency Provider Emergency Medicine; PCP Internal Medicine; Visit Provider Internal Medicine
DX: T83.021A Displacement of indwelling urethral catheter, initial encounter (principal); T83.511A Infection and inflammatory reaction due to indwelling urethral catheter, initial encounter; N39.0 Urinary tract infection, site not specified; Z93.59 Other cystostomy status; Z86.19 Personal history of other infectious and parasitic diseases; N49.2 Inflammatory disorders of scrotum; L89.90 Pressure ulcer of unspecified site, unspecified stage; E13.42 Other specified diabetes mellitus with diabetic polyneuropathy; K86.1 Other chronic pancreatitis; N32.0 Bladder-neck obstruction; F10.21 Alcohol dependence, in remission; S72.142A Displaced intertrochanteric fracture of left femur, initial encounter for closed fracture; X58.XXXA Exposure to other specified factors, initial encounter; N40.0 Benign prostatic hyperplasia without lower urinary tract symptoms; D64.9 Anemia, unspecified; R15.9 Full incontinence of feces; E03.9 Hypothyroidism, unspecified; E46 Unspecified protein-calorie malnutrition; I95.9 Hypotension, unspecified; Z20.822 Contact with and (suspected) exposure to COVID-19; Z68.1 Body mass index [BMI] 19.9 or less, adult; F17.210 Nicotine dependence, cigarettes, uncomplicated; Z86.711 Personal history of pulmonary embolism; Z79.4 Long term (current) use of insulin; Z79.1 Long term (current) use of non-steroidal anti-inflammatories (NSAID); Z79.52 Long term (current) use of systemic steroids; Z79.891 Long term (current) use of opiate analgesic; Z79.899 Other long term (current) drug therapy
CPT/HCPCS: 36415; 51040; 71045; 73502; 73560; 75989; 76942; 80053; 81001; 82948; 83605; 83690; 83735; 85025; 87086; 87426; 96365; 96375; 99285; A9270; C1729; C1769; C9803; G0378; J1335; J3010